=== PATIENT | male | born 1955 | race Caucasian/White ===

== ENCOUNTER 2021-08-02 23:35 | Inpatient (IN) | payer MEDICARE, BC, SELFPAY ==
[2021-08-02 23:34] VITALS: BP 155/76; PULSE 106; RESP 20; TEMP 36.9; O2SAT 92; BMI 30.4
--- NOTE | 2021-08-02 23:34 | PCM.HP.STD ---
HPI - General General Date of Admission: 08/02/21 HPI Narrative RABIA ALCANTARA, is a 66 M who is being admitted directly in ICU from [place] [facility] for worsening shortness of breath related to COVID-19 pneumonia. Patient symptoms started 8 days prior to admission on 07/25 mainly shortness of breath, fever and chills. He tested covid positive on 07/28. Triage vitals in [place] ER temperature 38.3 ?C, heart rate 100 -110/min, respiratory rate 18 to 20/min, BP 180/76. ABG was done on 50% Ventimask 7.5 . Bicarb in BMP 20, anion gap 16. WBC count 9.6 thousand with no lymphopenia. ANC high, with lymphopenia. Hemoglobin 14. Lactic acid 1.7. Subsequently patient was put on BiPAP, 08/05, 100% FiO2 pulse ox 96%. I urged after talking to gas meter repairer to intubate in case if he desaturates or hypoxic while transportation. I talked to ED physician again after an hour and she said he does not want to get intubated on ventilator and was weaned off to 70% FiO2 and is stable for last 1 hour as per the [place] [facility] physician, Dr. Scott. D-dimer high. Chest x-ray shows bilateral patchy infiltrates. CT angiogram chest multifocal bilateral pneumonia but no PE. He has history of asthma, hypertension and a stroke in the past, with residual dysequilibrium [facility] Medical History Asthma Hypertension Narcolepsy Stroke/cerebrovascular accident Home Medications doxycycline monohydrate 08/03/21 [History Last Taken Unknown] meloxicam PRN 08/03/21 [History Last Taken Unknown] metoprolol tartrate 08/03/21 [History Last Taken Unknown] olmesartan-hydrochlorothiazide tab 08/03/21 [History Last Taken Unknown] Allergy/AdvReac Type Severity Reaction Status Date / Time cephalexin [From Keflex] Allergy Rash Verified 08/03/21 00:22 theophylline Allergy Rash Verified 08/03/21 00:22 Social History Smoking Status: Unknown if ever smoked ROS Constitutional Constitutional: Reports chills, fatigue and malaise ENT HEENT: Reports hearing loss and nasal congestion Cardiovascular Cardiovascular: Reports dyspnea on exertion Respiratory/Chest Respiratory/Chest: Reports cough, dyspnea, shortness of breath at rest and shortness of breath with exertion Gastrointestinal Gastrointestinal: Denies abdominal pain, coffee ground emesis, constipation, diarrhea, dyspepsia, hematemesis, hematochezia, loose stools, melena, nausea, vomiting or other Genitourinary Genitourinary: Denies burning urination or urinary frequency Musculoskeletal Musculoskeletal: Reports arthralgias, joint pain and myalgias Neurologic Neurologic: Reports abnormal gait Allergic/Immunologic Allergic/Immunologic: Reports asthma Physical Exam Const alert and oriented x3 General Appearance: cooperative HEENT normocephalic and head/scalp atraumatic HEENT Narrative: on bipap Eyes PERRL and EOMs intact bilaterally Neck supple and no JVD Resp Resp Narrative: Air entry diminished B/L. b/l coarse crepts. Dyspnea. On Bipap Cardio S1 normal heart sound, S2 normal heart sound and no murmurs Cardio Narrative: sinus tachycardia GI normal to inspection, nondistended, normoactive bowel sounds Extremity normal to inspection and no clubbing, cyanosis or edema Peripheral Pulses: Yes pulses 2+ throughout Neuro oriented x3 Sensorium / Orientation: awake and alert Psych affect normal Assessment & Plan Assessment/Plan (1) Acute respiratory failure with hypoxia: (2) Pneumonia due to COVID-19 virus: PLAN: 1. Acute hypoxic respiratory failure secondary to bilateral COVID-19 pneumonia: The patient is being admitted in ICU on BiPAP. ABG done here shows 7.49/27/64 on 08/06 50 fio2 suggestive of resp alkalosis. Advised to change to Airvo Started on dexamethasone and remdesivir as patient is still on 10 days window for remdesivir. ID consult to consider baricitinib. Flame Channeler consult. Blood culture x2 is ordered in [place] ED. Urinary antigens and sputum culture for pneumonia work-up ORDERED. Continue bronchodilator, Pep, Mucinex and incentive spirometry. Inflammtory markers ordered. Labs from [place] ED reviewed. 2. Asthma exacerbation due to B/L COVID 19 : On Bronchodilator. Mild hyyokalmia, K 3.4, kcl replacement is ordered. 3. Hypertension: bp 150/74. continue home meds 4. History of a stroke in past: VTE prophylaxis moderate to high risk: on lovenox 30 mg sq bid. Advance directive: Patient doesn't have advance directive or designated HPOA. After discussion different procedures involved with full code, DNRCC-Arrest and DNRCC, he said he doesn;t want to be intubated or ventilator until absolutely needed. He is OK with CPR, CVC, DC Shock, tube feeding and vasopressor if absolutely needed. Time spent in discussion 16 mins Charges/Coding Visit Charges Inpatient E&M: 75464 Init Hosp L3 Procedures Hospitalists Procedures: 32217 Advncd Care Plan 30 Min
--- NOTE | 2021-08-02 23:35 | NURSING ---
PANDEMIC DOCUMENTATION DATE: 08/02/21 TIME: 2478
[2021-08-02 23:39] VITALS: PULSE 107
[2021-08-02 23:43] VITALS: PULSE 104; RESP 12; RESP 25; O2SAT 94
[2021-08-02 23:49] VITALS: BP 133/83; PULSE 103; RESP 22; O2SAT 97
[2021-08-03] VITALS (34 sets, daily range): BP systolic 114–160; BP diastolic 59–93; PULSE 79–130; RESP 12–37; TEMP 36.4–38.2; O2SAT 86–98
[2021-08-03 00:11] LABS: Allen Test Positive; Base Excess -2 mmol/L (-2 to +2); Bicarbonate 21.1 mmol/L (22-26); Blood Gas Specimen Type ART; FI02 50; O2 Delivery Device BiPAP; PO2 64 mmHG (75-100); RR 12; SITE R Radial; SO2 94 % (95-99); Total Carbon Dioxide 22 mmol/L; pCO2 27.5 mmHg (35-45); pH 7.49 (7.35-7.45)
[2021-08-03 01:42] LABS: Fibrinogen 827 mg/dl (203-444); International Normalized Ratio 1.1; Prothrombin Time (Protime)PT. 13.4 SECONDS (11.7-14.9)
[2021-08-03 01:49] LABS: CPK Total, Creatine Kinase 453 U/L (39-308); LDH 425 U/L (87-241); Troponin-I HS 15 pg/mL (3.0-78.0)
[2021-08-03 01:57] LABS: Lactic Acid 1.9 mmol/L (0.4-1.9)
[2021-08-03 02:01] LABS: BNP,B-Type NATRIURETIC PEPTIDE 33.2 pg/mL (0-100)
[2021-08-03 02:10] LABS: Procalcitonin 0.37 ng/mL (0.00-0.09)
[2021-08-03 03:01] LABS: M R Staph aureus DNA By PCR Negative (Negative); Probe Check PASS; Specimen Processing Control PASS
[2021-08-03] MEDS: Potassium Chloride Oral Tablet 20 MEQ 40 MEQ PO (03:16)
[2021-08-03] MEDS: Enoxaparin 30 MG/0.3 ML Syringe SC ×3 (03:16→21:06)
[2021-08-03 03:36] LABS: Absolute Lymphocyte Count 0.35 X10^3/uL (0.83-4.51); Absolute Neutrophil Count 6.5 X10^3/uL (2.0-7.7); Basophil# 0.01 X10^3/uL; Basophil% 0.1 % (0-1); Hematocrit 39.3 % (40-54); Lymphocyte # 0.35 X10^3/ul (0.83-4.51); Lymphocyte % 4.8 % (19-41); Mean Corp Hgb Conc 33.1 g/dL (32-36); Mean Corpuscular Hgb 27.8 pg (27.0-32.0); Mean Platelet Vol. 9.4 fl (6.2-12.0); Monocyte# 0.26 X10^3/uL; Monocyte% 3.6 % (0-10); NRBC Flagged by Analyzer 0 % (0-5); Neutrophil # 6.53 X10^3/uL (2.7-7.7); POSITIVE DIFFERENTIAL YES; Platelet Count 223 K/mm3 (150-450); RBC Distribution Width CV 13.7 % (11.6-14.6); RBC Distribution Width SD 42.1 fl (35.1-43.9); Red Blood Count 4.68 M/mm3 (4.6-6.2); White Blood Count 7.3 K/mm3 (4.4-11.0)
[2021-08-03 03:45] LABS: Differential Indicated SCAN CRITERIA MET
[2021-08-03 03:54] LABS: ALB/GLOB Ratio 0.6 RATIO (0.9-2.4); AST(SGOT) 47 U/L (15-37); Alanine Aminotransfer ALT/SGPT 38 U/L (16-61); Albumin, Serum 2.3 g/dL (3.2-5.0); Alkaline Phosphatase 49 U/L (45-117); Anion Gap 7 (5-15); BUN 10 mg/dL (7-18); BUN/Creat Ratio 15.3 RATIO (10-20); Calcium,Total 8.4 mg/dL (8.5-10.1); Chloride 108 mmol/L (98-107); Creatinine, Serum 0.65 mg/dL (0.70-1.30); EST Glomerular Filtration Rate 129 mL/min (>60); Est Glom Filt Rate - Afr Amer 156 mL/min (>60); Globulin 4.1 g/dL (2.2-4.2); Glucose 161 mg/dL (74-106); Phosphorus 2.8 mg/dL (2.5-4.9); Potassium 3.3 mmol/L (3.5-5.1); Protein, Total 6.4 g/dL (6.4-8.2); Sodium Level 140 mmol/L (136-145)
--- NOTE | 2021-08-03 05:44 | EX.PCM.CONCC ---
Assessment & Plan Assessment/Plan (1) Acute respiratory failure with hypoxia: (2) Pneumonia due to COVID-19 virus: PLAN: RECOMMENDATIONS: 1. Continue to wean FiO2 to maintain oxygen saturations at or above 90%. 2. Continue remdesivir as ordered. Continue to monitor liver and renal function. 3. Continue Decadron to complete 10 days of therapy. 4. Continue prophylactic Lovenox. 5. Infectious diseases consultation for possible baricitinib. 6. Awake prone positioning was encouraged. 7. Diuretics, as needed, to maintain euvolemic state. IMPRESSIONS: 1. Acute hypoxemic respiratory failure secondary to COVID-19 pneumonia The patient initially presented to the hospital with worsening shortness of breath and hypoxemia. Given that he was within 10 days of symptom onset, the patient was initiated on remdesivir. He will also be continued on Decadron to complete 10-day treatment course. The patient's respiratory status is still quite tenuous and he has been requiring a combination of BiPAP and heated high flow oxygen to maintain saturations. Continue to wean FiO2 to maintain saturations at or above 90%. Awake prone positioning was encouraged. CTA showed no evidence for PE. Therefore, continue prophylactic Lovenox as ordered. Recommend consultation to infectious diseases for consideration of baricitinib. Diuretics can be utilized as needed to maintain euvolemic state. 2. Obesity/hypertension/self-reported asthma/prior CVA Complicates care, management, recovery and prognosis. Continue home medications as indicated. The patient is okay with intubation if needed. TIME: 34 minutes of critical care time, independent of procedures, was spent addressing the patient's acute hypoxemic respiratory failure secondary to COVID-19 pneumonia, review of all data and collaboration with the care team. HPI Consult Data Date of Consult: 08/03/21 HPI Narrative Reason for Consultation: Acute hypoxemic respiratory failure secondary to COVID-19 pneumonia HPI Narrative: The patient is a 66-year-old male, with a history as outlined below, who presented to the hospital as a transfer of care from [place] with worsening shortness of breath and hypoxemia. According to documentation, the patient was found by EMS with an oxygen saturation of 72% on room air. While in the outside hospital emergency department, he ultimately required BiPAP support due to increased work of breathing and persistent hypoxemia. CTA chest showed no evidence for pulmonary embolism but did demonstrate bilateral airspace opacities. The patient symptom onset was approximately July 25. He subsequently tested positive on July 28. On presentation to the intensive care unit, the patient was noted to be afebrile and hemodynamically stable. The patient was initially maintained on BiPAP overnight with an FiO2 requirement of 60%. At some point early this morning, he was transitioned to Airvo heated high flow with an FiO2 of 80% and flow rate of 60 L/min. ABG obtained on BiPAP revealed a pH of 7.49 with a PCO2 of 27 and PO2 of 64. Chemistry profile was notable for a potassium of 3.3. CRP was elevated to 161. The patient was initiated on remdesivir, Decadron and Lovenox. [facility] Medical History Asthma Hypertension Narcolepsy Stroke/cerebrovascular accident Home Medications doxycycline monohydrate 08/03/21 [History Last Taken Unknown] metoprolol tartrate 08/03/21 [History Last Taken Unknown] metoprolol tartrate 08/03/21 [History Last Taken Unknown] olmesartan-hydrochlorothiazide tab 08/03/21 [History Last Taken Unknown] Allergy/AdvReac Type Severity Reaction Status Date / Time cephalexin [From Keflex] Allergy Rash Verified 08/03/21 00:22 theophylline Allergy Rash Verified 08/03/21 00:22 Social History Smoking Status: Unknown if ever smoked ROS Constitutional Constitutional: Reports body ache(s) and fatigue Eyes Eyes: Denies blurry vision or change in vision ENT HEENT: Reports headache(s); Denies dizziness, epistaxis, nasal congestion or nasal discharge Cardiovascular Cardiovascular: Reports dyspnea; Denies chest pain or dizziness Respiratory/Chest Respiratory/Chest: Reports cough and dyspnea Gastrointestinal Gastrointestinal: Denies abdominal pain, nausea or vomiting Genitourinary Genitourinary: Denies difficulty urinating Musculoskeletal Musculoskeletal: Denies arthralgias, back pain or joint pain Integumentary Integumentary: Denies lesions, rash or skin ulcer Neurologic Neurologic: Denies abnormal gait Psychiatric Psychiatric: Denies anxiety or depression Endocrine Endocrinology: Denies fatigue Hematologic/Lymphatic Hematologic/Lymphatic: Denies easy bleeding or easy bruising Physical Exam Const alert Constitutional Narrative: Sitting upright in bed. General Appearance: cooperative Nutritional Appearance: obese HEENT normocephalic and head/scalp atraumatic Eyes PERRL, EOMs intact bilaterally and conjunctivae normal Neck supple General: trachea midline Chest inspection of chest normal Resp Effort and Inspection: tachypneic Auscultation: diminished lung sounds Cardio regular rate and regular rhythm GI normal to inspection, nondistended, normoactive bowel sounds Extremity no clubbing, cyanosis or edema Skin no rashes or lesions noted Neuro CN's II-XII intact bilaterally, moves all extremities and no focal motor deficits Psych cooperative and affect normal Lab / Micro Data Result Diagrams: 08/03/21 03:20 08/03/21 03:20 Labs: Laboratory Results - last 24 hr 08/03/21 01:00: PT 13.4, INR 1.1, Fibrinogen 827 H 08/03/21 01:00: Lactate Dehydrogenase 425 H, Total Creatine Kinase 453 H, Troponin I High Sens 15, C-React Prot Ext Range 161.00 H 08/03/21 01:00: Lactic Acid 1.9 08/03/21 01:00: B-Natriuretic Peptide 33.2 08/03/21 01:00: Procalcitonin 0.37 H 08/03/21 01:25: MRSA (PCR) Negative 08/03/21 03:20: WBC 7.3, RBC 4.68, Hgb 13.0, Hct 39.3 L, MCV 84.0, MCH 27.8, MCHC 33.1, RDW Std Deviation 42.1, RDW Coeff of Williams 13.7, Plt Count 223, MPV 9.4, Immature Gran % (Auto) 1.500 H, Neut % (Auto) 90.0 H, Lymph % (Auto) 4.8 L, [place] % (Auto) 3.6, Eos % (Auto) 0.0, Baso % (Auto) 0.1, Absolute Neuts (auto) 6.5, Absolute Lymphs (auto) 0.35 L, Nucleated RBC % 0 08/03/21 03:20: Sodium 140, Potassium 3.3 L, Chloride 108 H, Carbon Dioxide 25.0, Anion Gap 7, BUN 10, Creatinine 0.65 L, Estim Creat Clear Calc 68.40, Est GFR (MDRD) Af Amer 156, Est GFR (MDRD) Non-Af 129, BUN/Creatinine Ratio 15.3, Glucose 161 H, Calcium 8.4 L, Phosphorus 2.8, Magnesium 2.0, Total Bilirubin 0.40, AST 47 H, ALT 38, Alkaline Phosphatase 49, Total Protein 6.4, Albumin 2.3 L, Globulin 4.1, Albumin/Globulin Ratio 0.6 L ABG Data ABG results: ABG 08/03/21 00:03 Specimen Type ART Sample Site R Radial pH 7.49 H Bicarbonate Actual 21.1 L Total CO2 22 Base Excess -2 O2 Saturation 94 L O2 % 50 ABG pCO2 27.5 L ABG pO2 64 L Raul Test Positive Respiration Rate 12 O2 Delivery Device BiPAP Clinical Comments 08/06 Charges/Coding Procedures Hospitalists Procedures: 78130 Critial Care 1st Hr
[2021-08-03] MEDS: Ipratropium/Albuterol Sulfate 3 ML AMPUL.NEB INHALATION ×3 (06:49→19:19)
--- NOTE | 2021-08-03 07:13 | PN.HOSP_ITS ---
Subjective Subjective Patient is a 66-year-old gentleman unvaccinated against COVID-19 who presented with progressive shortness of breath. He was seen and evaluated at the [place] ER found to be significantly hypoxic placed on BiPAP and subsequently transferred to the [facility] Objective Data Objective Data Vital Signs: Vital Signs Temp Pulse Resp BP Pulse Ox 99.2 F H 94 21 H 157/89 H 92 08/03/21 04:00 08/03/21 07:00 08/03/21 07:00 08/03/21 07:00 08/03/21 06:52 Oxygen Flow Rate (L/min) 60 Oxygen Delivery Method Airvo Weight: 90.7 kg Body Mass Index (BMI) 30.4 Intake & Output: Intake and Output for Last 24 Hours 08/01/21 08/02/21 08/03/21 23:59 23:59 23:59 Intake Total 490 / 490 Output Total 400 / 400 Balance 90 / 90 Lab / Micro Data Result Diagrams: 08/03/21 03:20 08/03/21 03:20 Labs: Laboratory Results - last 24 hr 08/03/21 01:00: PT 13.4, INR 1.1, Fibrinogen 827 H 08/03/21 01:00: Lactate Dehydrogenase 425 H, Total Creatine Kinase 453 H, Troponin I High Sens 15, C-React Prot Ext Range 161.00 H 08/03/21 01:00: Lactic Acid 1.9 08/03/21 01:00: B-Natriuretic Peptide 33.2 08/03/21 01:00: Procalcitonin 0.37 H 08/03/21 01:25: MRSA (PCR) Negative 08/03/21 03:20: WBC 7.3, RBC 4.68, Hgb 13.0, Hct 39.3 L, MCV 84.0, MCH 27.8, MCHC 33.1, RDW Std Deviation 42.1, RDW Coeff of Williams 13.7, Plt Count 223, MPV 9.4, Immature Gran % (Auto) 1.500 H, Neut % (Auto) 90.0 H, Lymph % (Auto) 4.8 L, Jay % (Auto) 3.6, Eos % (Auto) 0.0, Baso % (Auto) 0.1, Absolute Neuts (auto) 6.5, Absolute Lymphs (auto) 0.35 L, Nucleated RBC % 0 08/03/21 03:20: Sodium 140, Potassium 3.3 L, Chloride 108 H, Carbon Dioxide 25.0, Anion Gap 7, BUN 10, Creatinine 0.65 L, Estim Creat Clear Calc 68.40, Est GFR (MDRD) Af Amer 156, Est GFR (MDRD) Non-Af 129, BUN/Creatinine Ratio 15.3, Glucose 161 H, Calcium 8.4 L, Phosphorus 2.8, Magnesium 2.0, Total Bilirubin 0.40, AST 47 H, ALT 38, Alkaline Phosphatase 49, Total Protein 6.4, Albumin 2.3 L, Globulin 4.1, Albumin/Globulin Ratio 0.6 L ABG Data ABG results: ABG 08/03/21 00:03 Specimen Type ART Sample Site R Radial pH 7.49 H Bicarbonate Actual 21.1 L Total CO2 22 Base Excess -2 O2 Saturation 94 L O2 % 50 ABG pCO2 27.5 L ABG pO2 64 L Raul Test Positive Respiration Rate 12 O2 Delivery Device BiPAP Clinical Comments 08/06 Physical Exam Narrative GENERAL: Dyspneic at rest HEENT: Atraumatic; EYES; Anicteric, Normal Conjunctiva NECK; supple, normal thyroid, RESPIRATORY: Diminished to auscultation CARDIOVASCULAR: Regular S1 S2, GI: soft, normoactive bowel sounds, : No Renal angle tenderness; EXTREMITIES: No edema, no clubbing, MUSCULOSKELETAL: no muscle waisting NEURO: Awake; no lateralizing signs. SKIN: No Rash PSYCH; Flat affect Assessment & Plan Assessment/Plan (1) Acute respiratory failure with hypoxia: (2) Pneumonia due to COVID-19 virus: PLAN: Patient is a 66-year-old gentleman unvaccinated against COVID-19 who presented with progressive shortness of breath. He was seen and evaluated at the [place] ER found to be significantly hypoxic placed on BiPAP and subsequently transferred to the [facility] 1. Acute hypoxic respiratory failure secondary to bilateral COVID-19 pneumonia -Admitted to regular nursing floor patient was started on dexamethasone and remdesivir. Patient symptoms started on 07/26/2021. Was also placed on supplemental oxygen via Airvo titrated to keep oxygen saturation greater than 90. Patient remains in ICU consultation was placed to pulmonary medicine. 2. Acute asthma exacerbation ?Possibly per stated by above patient is on steroid and bronchodilator treatment 3. Hypokalemia ?Corrected per protocol, repeat labs ordered for monitoring 4. Hypertension - Blood pressure not optimal, home medications continued with dose adjustment as needed 5. History of previous CVA ?With no residual effect 6. DVT prophylaxis ?Tate Charges/Coding Visit Charges Inpatient E&M: 95351 Subs Hosp L3
[2021-08-03] MEDS: dexAMETHasone 10 MG/ML Vial 6 MG IV (09:57)
[2021-08-03] MEDS: Losartan Potassium 25 MG Tablet PO (09:58)
[2021-08-03] MEDS: guaiFENesin 1,200 MG Tablet 1200 MG PO ×2 (09:58→21:05)
[2021-08-03] MEDS: Furosemide 40 MG/4 ML Vial IV (10:07)
[2021-08-03] MEDS: 0.9% Saline Lock 10 ML Syringe IV ×2 (10:07→21:05)
--- NOTE | 2021-08-03 13:14 | CASEMGMT ---
Addendum entered by Wen Tang 08/03/21 14:05: Pt had COVID testing done @ [facility]. Original Note: RN CM COSMETIC SALES CM spoke with patient for initial transition planning/care coordination assessment. RN CM introduced self and role at [facility]. Pt voices understanding and consents to assessment at this time. Pt is A/O at this time and answers all questions appropriately. Care providers, pharmacy, and demographics verified/updated at this time. PCP: Leanne Perry Specialists: none Preferred Pharmacy: [facility] Retail Insurance: [employer], [place] Prescription Benefit: Yes--[employer] LNOK:, Erin. Daughter, Betina Living Arrangements: Lives w/ in one-story home. Handicap accessible. Uses walker @ baseline. Able to bath/dress self. does home tasks. Was +COVID and was just d/c'd from [facility] on Fri-she went home w/O2 from [facility]. Neighbors able to get groceries and their mail while they are ill. Transportation: Pt states drives self and states no transportation concerns at this time. also drives DME: States has the following DME: nebulizer, cane, walker. Also has/but does not use: shower chair, transport chair, W/C. Does not have home O2. If needs O2 @ d/c, 1st preference is [employer]. HHC/SNF: No hx of either. Pt wishes to return home and states has no concerns with going home at time of discharge. CM to follow for home oxygen needs and any further discharge planning/needs. Pt voices no further concerns/needs at this time. Advised pt to ask for CM if any further questions/concerns/needs arise. Voices understanding. PLAN: Home. PT/OT evals pending. Follow for any HHC needs. Follow for any O2 needs. Tammy JOLLY RN, CM
--- NOTE | 2021-08-03 14:39 | CPS ---
Water bag changed on V60+
[2021-08-03] MEDS: Acetaminophen 325 MG Tablet 650 MG PO (16:02)
[2021-08-03] MEDS: MELATONIN 10 MG TABLET PO (21:05)
[2021-08-04] VITALS (38 sets, daily range): BP systolic 104–146; BP diastolic 55–80; PULSE 74–108; RESP 12–46; TEMP 36.7–37.1; O2SAT 86–98
[2021-08-04] MEDS: Acetaminophen 325 MG Tablet 650 MG PO ×2 (00:33→22:28)
[2021-08-04 05:09] LABS: Absolute Lymphocyte Count 0.44 X10^3/uL (0.83-4.51); Absolute Neutrophil Count 6.7 X10^3/uL (2.0-7.7); Basophil# 0.02 X10^3/uL; Basophil% 0.3 % (0-1); Hematocrit 38.8 % (40-54); Lymphocyte # 0.44 X10^3/ul (0.83-4.51); Lymphocyte % 5.8 % (19-41); Mean Corp Hgb Conc 33.5 g/dL (32-36); Mean Corpuscular Hgb 28.1 pg (27.0-32.0); Mean Corpuscular Volume 83.8 fL (80-94); Mean Platelet Vol. 9.5 fl (6.2-12.0); Monocyte# 0.26 X10^3/uL; Monocyte% 3.4 % (0-10); NRBC Flagged by Analyzer 0 % (0-5); Neutrophil # 6.69 X10^3/uL (2.7-7.7); POSITIVE DIFFERENTIAL YES; Platelet Count 258 K/mm3 (150-450); RBC Distribution Width CV 13.7 % (11.6-14.6); RBC Distribution Width SD 42.2 fl (35.1-43.9); Red Blood Count 4.63 M/mm3 (4.6-6.2); White Blood Count 7.6 K/mm3 (4.4-11.0)
[2021-08-04 05:11] LABS: Differential Indicated SCAN CRITERIA MET
[2021-08-04 05:26] LABS: ALB/GLOB Ratio 0.5 RATIO (0.9-2.4); AST(SGOT) 42 U/L (15-37); Alanine Aminotransfer ALT/SGPT 38 U/L (16-61); Alkaline Phosphatase 46 U/L (45-117); Anion Gap 6 (5-15); BUN 22 mg/dL (7-18); BUN/Creat Ratio 34.6 RATIO (10-20); Calcium,Total 8.2 mg/dL (8.5-10.1); Chloride 107 mmol/L (98-107); Creatinine, Serum 0.64 mg/dL (0.70-1.30); EST Glomerular Filtration Rate 133 mL/min (>60); Est Glom Filt Rate - Afr Amer 161 mL/min (>60); Globulin 4.1 g/dL (2.2-4.2); Glucose 111 mg/dL (74-106); Magnesium 2.1 mg/dL (1.6-2.6); Potassium 3.7 mmol/L (3.5-5.1); Protein, Total 6.1 g/dL (6.4-8.2); Sodium Level 140 mmol/L (136-145)
[2021-08-04 05:45] LABS: Differential Comment SCANNED
--- NOTE | 2021-08-04 05:46 | PCM.PN.INT ---
Assessment & Plan Assessment/Plan (1) Acute respiratory failure with hypoxia: (2) Pneumonia due to COVID-19 virus: PLAN: RECOMMENDATIONS: 1. Continue to wean FiO2 to maintain oxygen saturations at or above 90%. 2. Continue remdesivir as ordered. Continue to monitor liver and renal function. 3. Continue Decadron to complete 10 days of therapy. 4. Continue prophylactic Lovenox. 5. Start baricitinib today. 6. Awake prone positioning was encouraged. 7. Diuretics, as needed, to maintain euvolemic state. IMPRESSIONS: 1. Acute hypoxemic respiratory failure secondary to COVID-19 pneumonia The patient initially presented to the hospital with worsening shortness of breath and hypoxemia. Given that he was within 10 days of symptom onset, the patient was initiated on remdesivir. He will also be continued on Decadron to complete 10-day treatment course. The patient's respiratory status is still quite tenuous and he has been requiring a combination of AVAPS and heated high flow oxygen to maintain saturations. Continue to wean FiO2 to maintain saturations at or above 90%. Awake prone positioning was encouraged. CTA showed no evidence for PE. Therefore, continue prophylactic Lovenox as ordered. Given the aforementioned, baricitinib will be initiated today. Diuretics can be utilized as needed to maintain euvolemic state. 2. Obesity/hypertension/self-reported asthma/prior CVA Complicates care, management, recovery and prognosis. Continue home medications as indicated. The patient is okay with intubation if needed. This note was generated with [employer] dictation software. It may contain incorrect words, spelling, and punctuation that were not noted in checking the note before signing. Subjective Subjective The patient was seen and examined at the bedside this morning. Events from the last 24 hours have been reviewed. The patient was maintained on AVAPS overnight with an FiO2 of 80%. He was then transition back to heated high flow this morning, which he is currently tolerating. The patient did sleep part of the night in a prone position. Liver and renal function are stable. The patient remains on remdesivir, Decadron, Lovenox and scheduled bronchodilators. I did personally call this morning to pharmacy and placed an order for baricitinib. Objective Data Objective Data The patient's most recent lab work, culture data and imaging studies have all been personally reviewed. Strep and urine Legionella antigens were negative. Blood and sputum cultures are pending. Vital Signs: Vital Signs Temp Pulse Resp BP Pulse Ox 98.2 F 99 22 H 128/77 H 93 08/04/21 04:00 08/04/21 04:31 08/04/21 04:31 08/04/21 04:00 08/04/21 04:31 Oxygen Flow Rate (L/min) 60 Oxygen Delivery Method Bi-pap Weight: 86.8 kg Body Mass Index (BMI) 30.4 Intake & Output: Intake and Output for Last 24 Hours 08/02/21 08/03/21 08/04/21 23:59 23:59 23:59 Intake Total 1675.50 / 1795.50 120 / 120 Output Total 1850 / 2175 325 / 325 Balance -174.50 / -379.50 -205 / -205 Medical Nutrition Assessment Dietitian: Malnutrition Criteria Met Start: 08/03/21 13:46 Freq: Status: Active Protocol: Document 08/03/21 13:46 AG (Rec: 08/03/21 13:46 AG [id number]) Nutrition Malnutrition Evidence of Malnutrition Exists Yes Malnutrition (severe): Acute Illness/Injury Evidenced By Suboptimal Energy Intake ( Severe),Weight Loss (Severe) Clinical Problem Acute Disease or Injury Related Malnutrition Etiology severe, acute malnutrition r/t inadequate energy intake d/t COVID-19 illness Signs/Symptoms as evidenced by unintentional wt loss of 5#/2.4% x 8 days, estimated PO intake meeting < 50% of estimated nutritional needs >1 week Status Active Problem Recommendation Dietitian Recommendations/Changes continue regular diet, will add 8 oz ensure enlive w/ meals for additional calories/ protein if consumed. Lab / Micro Data Attestation: I reviewed the patient's lab results. Result Diagrams: 08/04/21 04:25 08/04/21 04:25 Labs: Laboratory Results - last 24 hr 08/04/21 04:25: WBC 7.6, RBC 4.63, Hgb 13.0, Hct 38.8 L, MCV 83.8, MCH 28.1, MCHC 33.5, RDW Std Deviation 42.2, RDW Coeff of Williams 13.7, Plt Count 258, MPV 9.5, Immature Gran % (Auto) 2.500 H, Neut % (Auto) 88.0 H, Lymph % (Auto) 5.8 L, [place] % (Auto) 3.4, Eos % (Auto) 0.0, Baso % (Auto) 0.3, Absolute Neuts (auto) 6.7, Absolute Lymphs (auto) 0.44 L, Nucleated RBC % 0, Differential Comment SCANNED 08/04/21 04:25: Sodium 140, Potassium 3.7, Chloride 107, Carbon Dioxide 27.0, Anion Gap 6, BUN 22 H, Creatinine 0.64 L, Estim Creat Clear Calc 68.40, Est GFR (MDRD) Af Amer 161, Est GFR (MDRD) Non-Af 133, BUN/Creatinine Ratio 34.6 H, Glucose 111 H, Calcium 8.2 L, Magnesium 2.1, Total Bilirubin 0.40, AST 42 H, ALT 38, Alkaline Phosphatase 46, Total Protein 6.1 L, Albumin 2.0 L, Globulin 4.1, Albumin/Globulin Ratio 0.5 L Micro: Microbiology 08/03/21 13:33 Urine, Clean Catch Legionella Antigen - Final 08/03/21 13:33 Urine, Clean Catch Streptococcus pneumoniae Antigen (M - Final 08/03/21 01:00 Sputum, Expectorated/Coughed Gram Stain - Final Physical Exam Const alert Constitutional Narrative: Sitting in bedside recliner. General Appearance: cooperative Nutritional Appearance: obese HEENT normocephalic and head/scalp atraumatic Eyes PERRL, EOMs intact bilaterally and conjunctivae normal Neck supple General: trachea midline Chest inspection of chest normal Resp Effort and Inspection: Negative for labored Auscultation: diminished lung sounds; Negative for rales, rhonchi or wheezes Cardio regular rate and regular rhythm GI normal to inspection, nondistended, normoactive bowel sounds Extremity no clubbing, cyanosis or edema Skin no rashes or lesions noted Neuro CN's II-XII intact bilaterally, moves all extremities and no focal motor deficits Psych Mood & Affect: flat affect Charges/Coding Visit Charges Inpatient E&M: 14397 Subs Hosp L3
[2021-08-04] MEDS: Ipratropium/Albuterol Sulfate 3 ML AMPUL.NEB INHALATION ×3 (06:40→19:19)
--- NOTE | 2021-08-04 06:42 | PCM.PN.HOSP ---
Subjective Subjective Patient seen remains in ICU. Remains on high flow oxygen via Airvo with FiO2 of 100% and flow of 70 L/min. Patient desaturated easily with activity including talking dropping to the mid 80s. Objective Data Objective Data Vital Signs: Vital Signs Temp Pulse Resp BP Pulse Ox 98.2 F 82 35 H 124/65 H 90 08/04/21 04:00 08/04/21 06:00 08/04/21 06:00 08/04/21 06:00 08/04/21 06:00 Oxygen Flow Rate (L/min) 60 Oxygen Delivery Method Bi-pap Weight: 86.8 kg Body Mass Index (BMI) 30.4 Intake & Output: Intake and Output for Last 24 Hours 08/02/21 08/03/21 08/04/21 23:59 23:59 23:59 Intake Total 1675.50 / 1795.50 120 / 120 Output Total 1850 / 2175 700 / 700 Balance -174.50 / -379.50 -580 / -580 Medical Nutrition Assessment Dietitian: Malnutrition Criteria Met Start: 08/03/21 13:46 Freq: Status: Active Protocol: Document 08/03/21 13:46 AG (Rec: 08/03/21 13:46 AG [id number]) Nutrition Malnutrition Evidence of Malnutrition Exists Yes Malnutrition (severe): Acute Illness/Injury Evidenced By Suboptimal Energy Intake ( Severe),Weight Loss (Severe) Clinical Problem Acute Disease or Injury Related Malnutrition Etiology severe, acute malnutrition r/t inadequate energy intake d/t COVID-19 illness Signs/Symptoms as evidenced by unintentional wt loss of 5#/2.4% x 8 days, estimated PO intake meeting < 50% of estimated nutritional needs >1 week Status Active Problem Recommendation Dietitian Recommendations/Changes continue regular diet, will add 8 oz ensure enlive w/ meals for additional calories/ protein if consumed. Lab / Micro Data Result Diagrams: 08/04/21 04:25 08/04/21 04:25 Labs: Laboratory Results - last 24 hr 08/04/21 04:25: WBC 7.6, RBC 4.63, Hgb 13.0, Hct 38.8 L, MCV 83.8, MCH 28.1, MCHC 33.5, RDW Std Deviation 42.2, RDW Coeff of Williams 13.7, Plt Count 258, MPV 9.5, Immature Gran % (Auto) 2.500 H, Neut % (Auto) 88.0 H, Lymph % (Auto) 5.8 L, [place] % (Auto) 3.4, Eos % (Auto) 0.0, Baso % (Auto) 0.3, Absolute Neuts (auto) 6.7, Absolute Lymphs (auto) 0.44 L, Nucleated RBC % 0, Differential Comment SCANNED 08/04/21 04:25: Sodium 140, Potassium 3.7, Chloride 107, Carbon Dioxide 27.0, Anion Gap 6, BUN 22 H, Creatinine 0.64 L, Estim Creat Clear Calc 68.40, Est GFR (MDRD) Af Amer 161, Est GFR (MDRD) Non-Af 133, BUN/Creatinine Ratio 34.6 H, Glucose 111 H, Calcium 8.2 L, Magnesium 2.1, Total Bilirubin 0.40, AST 42 H, ALT 38, Alkaline Phosphatase 46, Total Protein 6.1 L, Albumin 2.0 L, Globulin 4.1, Albumin/Globulin Ratio 0.5 L Micro: Microbiology 08/03/21 13:33 Urine, Clean Catch Legionella Antigen - Final 08/03/21 13:33 Urine, Clean Catch Streptococcus pneumoniae Antigen (M - Final 08/03/21 01:00 Sputum, Expectorated/Coughed Gram Stain - Final Physical Exam Narrative GENERAL: Dyspneic at rest HEENT: Atraumatic; EYES; Anicteric, Normal Conjunctiva NECK; supple, normal thyroid, RESPIRATORY: Diminished to auscultation CARDIOVASCULAR: Regular S1 S2, GI: soft, normoactive bowel sounds, : No Renal angle tenderness; EXTREMITIES: No edema, no clubbing, MUSCULOSKELETAL: no muscle waisting NEURO: Awake; no lateralizing signs. SKIN: No Rash PSYCH; Flat affect Assessment & Plan Assessment/Plan (1) Acute respiratory failure with hypoxia: (2) Pneumonia due to COVID-19 virus: PLAN: Patient is a 66-year-old gentleman unvaccinated against COVID-19 who presented with progressive shortness of breath. He was seen and evaluated at the [place] [facility] found to be significantly hypoxic placed on BiPAP and subsequently transferred to the [facility] 1. Acute hypoxic respiratory failure secondary to bilateral COVID-19 pneumonia -Admitted to regular nursing floor patient was started on dexamethasone and remdesivir. Patient symptoms started on 07/26/2021. Was also placed on supplemental oxygen via Airvo titrated to keep oxygen saturation greater than 90. Patient remains in ICU consultation was placed to pulmonary medicine. ?08/04/2021.Patient seen remains in ICU. Remains on high flow oxygen via Airvo with FiO2 of 100% and flow of 70 L/min. Patient desaturated easily with activity including talking dropping to the mid 80s 2. Acute asthma exacerbation ?Possibly per stated by above patient is on steroid and bronchodilator treatment 3. Hypokalemia ?Corrected per protocol, repeat labs ordered for monitoring 4. Hypertension - Blood pressure not optimal, home medications continued with dose adjustment as needed 5. History of previous CVA ?With no residual effect 6. DVT prophylaxis ?Lovenox Charges/Coding Visit Charges Inpatient E&M: 78382 Subs Hosp L3
[2021-08-04] MEDS: Enoxaparin 30 MG/0.3 ML Syringe SC ×2 (08:38→22:29)
[2021-08-04] MEDS: dexAMETHasone 10 MG/ML Vial 6 MG IV (08:41)
[2021-08-04] MEDS: Losartan Potassium 25 MG Tablet PO (08:41)
[2021-08-04] MEDS: guaiFENesin 1,200 MG Tablet 1200 MG PO ×2 (08:41→22:29)
[2021-08-04] MEDS: CHLORHEXIDINE GLUC 2% CLOTH 1 EACH TOWELETTE TOPICAL (16:03)
[2021-08-04] MEDS: MELATONIN 10 MG TABLET PO (22:29)
[2021-08-04] MEDS: 0.9% Saline Lock 10 ML Syringe IV (22:29)
[2021-08-05] VITALS (33 sets, daily range): BP systolic 103–152; BP diastolic 53–103; PULSE 67–112; RESP 12–35; TEMP 36.3–37.1; O2SAT 90–99
[2021-08-05 04:26] LABS: Absolute Lymphocyte Count 0.55 X10^3/uL (0.83-4.51); Absolute Neutrophil Count 4.2 X10^3/uL (2.0-7.7); Basophil# 0.02 X10^3/uL; Basophil% 0.4 % (0-1); Hemoglobin 13.3 g/dL (13.0-16.5); Lymphocyte # 0.55 X10^3/ul (0.83-4.51); Lymphocyte % 10.5 % (19-41); Mean Corp Hgb Conc 33.3 g/dL (32-36); Mean Corpuscular Volume 84.2 fL (80-94); Mean Platelet Vol. 9.6 fl (6.2-12.0); Monocyte# 0.34 X10^3/uL; Monocyte% 6.5 % (0-10); NRBC Flagged by Analyzer 0 % (0-5); Neutrophil # 4.15 X10^3/uL (2.7-7.7); Neutrophil % 79.2 % (47-70); POSITIVE DIFFERENTIAL YES; Platelet Count 262 K/mm3 (150-450); RBC Distribution Width CV 13.4 % (11.6-14.6); RBC Distribution Width SD 41.6 fl (35.1-43.9); Red Blood Count 4.75 M/mm3 (4.6-6.2); White Blood Count 5.2 K/mm3 (4.4-11.0)
[2021-08-05 04:27] LABS: Differential Indicated SCAN CRITERIA MET
[2021-08-05 04:46] LABS: ALB/GLOB Ratio 0.5 RATIO (0.9-2.4); AST(SGOT) 42 U/L (15-37); Alanine Aminotransfer ALT/SGPT 37 U/L (16-61); Alkaline Phosphatase 45 U/L (45-117); Anion Gap 8 (5-15); BUN 21 mg/dL (7-18); BUN/Creat Ratio 34.4 RATIO (10-20); Calcium,Total 8.1 mg/dL (8.5-10.1); Chloride 107 mmol/L (98-107); Creatinine, Serum 0.61 mg/dL (0.70-1.30); EST Glomerular Filtration Rate 139 mL/min (>60); Est Glom Filt Rate - Afr Amer 169 mL/min (>60); Globulin 4.1 g/dL (2.2-4.2); Glucose 105 mg/dL (74-106); Potassium 3.8 mmol/L (3.5-5.1); Protein, Total 6.1 g/dL (6.4-8.2); Sodium Level 141 mmol/L (136-145)
[2021-08-05 05:45] LABS: Differential Comment SCANNED
--- NOTE | 2021-08-05 06:23 | PN.CC_ITS ---
Assessment & Plan Assessment/Plan (1) Acute respiratory failure with hypoxia: (2) Pneumonia due to COVID-19 virus: PLAN: RECOMMENDATIONS: 1. Continue to wean FiO2 to maintain oxygen saturations at or above 90%. 2. Continue remdesivir as ordered. Continue to monitor liver and renal funct ion. 3. Continue Decadron to complete 10 days of therapy. 4. Continue prophylactic Lovenox. 5. Continue baricitinib as ordered. 6. Awake prone positioning was encouraged. 7. Diuretics, as needed, to maintain euvolemic state. IMPRESSIONS: 1. Acute hypoxemic respiratory failure secondary to COVID-19 pneumonia The patient initially presented to the hospital with worsening shortness of breath and hypoxemia. Given that he was within 10 days of symptom onset, the patient was initiated on remdesivir. He will also be continued on Decadron to complete 10-day treatment course. The patient's respiratory status is still quite tenuous and he has been requiring a combination of AVAPS and heated high flow oxygen to maintain saturations. Continue to wean FiO2 to maintain saturations at or above 90%. Awake prone positioning was encouraged. CTA showed no evidence for PE. Therefore, continue prophylactic Lovenox as ordered. Given the aforementioned, baricitinib was also initiated.. Diuretics can be utilized as needed to maintain euvolemic state. 2. Obesity/hypertension/self-reported asthma/prior CVA Complicates care, management, recovery and prognosis. Continue home medications as indicated. The patient is okay with intubation if needed. This note was generated with [employer] dictation software. It may contain incorrect words, spelling, and punctuation that were not noted in checking the note before signing. Subjective Subjective The patient was seen and examined at the bedside this morning. Events from the last 24 hours have been reviewed. The patient is currently afebrile and hemodynamically stable. The patient once again did tolerate AVAPS overnight with an FiO2 requirement of 60%. He has been proactive in proning himself while sleeping. He is currently documented to be overall net -700 mL for the hospital admission. Liver and renal function are stable. The patient remains on remdesivir, Decadron, twice daily Lovenox, scheduled bronchodilators and baricitinib. Objective Data Objective Data The patient's most recent lab work, culture data and imaging studies have all been personally reviewed. Strep and urine Legionella antigens were negative. Blood and sputum cultures are pending. Vital Signs: Vital Signs Temp Pulse Resp BP Pulse Ox 98.8 F 82 18 114/65 94 08/05/21 04:00 08/05/21 04:49 08/05/21 04:49 08/05/21 04:00 08/05/21 04:49 Oxygen Flow Rate (L/min) 70 Oxygen Delivery Method Airvo Weight: 86.1 kg Body Mass Index (BMI) 30.4 Intake & Output: Intake and Output for Last 24 Hours 08/03/21 08/04/21 08/05/21 23:59 23:59 23:59 Intake Total 1675.50 / 1795.50 780 / 780 250 / 250 Output Total 1850 / 2175 1590 / 1590 Balance -174.50 / -379.50 -810 / -810 250 / 250 Medical Nutrition Assessment Dietitian: Malnutrition Criteria Met Start: 08/03/21 13:46 Freq: Status: Active Protocol: Document 08/04/21 10:08 BP (Rec: 08/04/21 10:08 BP [id number]) Nutrition Malnutrition Evidence of Malnutrition Exists Yes Malnutrition (severe): Acute Illness/Injury Evidenced By Suboptimal Energy Intake ( Severe),Weight Loss (Severe) Clinical Problem Acute Disease or Injury Related Malnutrition Etiology severe, acute malnutrition r/t inadequate energy intake d/t COVID-19 illness Signs/Symptoms as evidenced by unintentional wt loss of 5#/2.4% x 8 days, estimated PO intake meeting < 50% of estimated nutritional needs >1 week Status Active Problem Recommendation Dietitian Recommendations/Changes Rec as pt medically able advance to regular diet, with 8 oz ensure enlive w/ meals for additional calories/ protein if consumed. Lab / Micro Data Attestation: I reviewed the patient's lab results. Result Diagrams: 08/05/21 04:19 08/05/21 04:19 Labs: Laboratory Results - last 24 hr 08/05/21 04:19: WBC 5.2, RBC 4.75, Hgb 13.3, Hct 40.0, MCV 84.2, MCH 28.0, MCHC 33.3, RDW Std Deviation 41.6, RDW Coeff of Williams 13.4, Plt Count 262, MPV 9.6, Immature Gran % (Auto) 3.400 H, Neut % (Auto) 79.2 H, Lymph % (Auto) 10.5 L, [place] % (Auto) 6.5, Eos % (Auto) 0.0, Baso % (Auto) 0.4, Absolute Neuts (auto) 4.2, Absolute Lymphs (auto) 0.55 L, Nucleated RBC % 0, Differential Comment SCANNED 08/05/21 04:19: Sodium 141, Potassium 3.8, Chloride 107, Carbon Dioxide 26.0, Anion Gap 8, BUN 21 H, Creatinine 0.61 L, Estim Creat Clear Calc 68.40, Est GFR (MDRD) Af Amer 169, Est GFR (MDRD) Non-Af 139, BUN/Creatinine Ratio 34.4 H, Glucose 105, Calcium 8.1 L, Total Bilirubin 0.40, AST 42 H, ALT 37, Alkaline Phosphatase 45, Total Protein 6.1 L, Albumin 2.0 L, Globulin 4.1, Albumin/Globulin Ratio 0.5 L Micro: Microbiology 08/03/21 13:33 Urine, Clean Catch Legionella Antigen - Final 08/03/21 13:33 Urine, Clean Catch Streptococcus pneumoniae Antigen (M - Final 08/03/21 01:00 Sputum, Expectorated/Coughed Gram Stain - Final Physical Exam Const alert Constitutional Narrative: Laying in lateral recumbent position in bed. General Appearance: cooperative Nutritional Appearance: obese HEENT normocephalic and head/scalp atraumatic Eyes PERRL, EOMs intact bilaterally and conjunctivae normal Neck supple General: trachea midline Chest inspection of chest normal Resp Effort and Inspection: tachypneic; Negative for labored Auscultation: diminished lung sounds; Negative for rales, rhonchi or wheezes Cardio regular rate and regular rhythm GI normal to inspection, nondistended, normoactive bowel sounds Extremity no clubbing, cyanosis or edema Skin no rashes or lesions noted Neuro CN's II-XII intact bilaterally, moves all extremities and no focal motor deficits Psych cooperative and affect normal Charges/Coding Visit Charges Inpatient E&M: 62522 Subs Hosp L3
[2021-08-05] MEDS: Ipratropium/Albuterol Sulfate 3 ML AMPUL.NEB INHALATION ×3 (06:59→18:52)
--- NOTE | 2021-08-05 07:20 | PN.HOSP_ITS ---
Subjective Subjective Patient did experience an episode of desaturation this a.m. resulting in patient being placed back on AVAPS Objective Data Objective Data Vital Signs: Vital Signs Temp Pulse Resp BP Pulse Ox 98.8 F 95 20 H 130/69 H 90 08/05/21 04:00 08/05/21 07:00 08/05/21 07:00 08/05/21 07:00 08/05/21 07:00 Oxygen Flow Rate (L/min) 70 Oxygen Delivery Method Airvo Weight: 86.1 kg Body Mass Index (BMI) 30.4 Intake & Output: Intake and Output for Last 24 Hours 08/03/21 08/04/21 08/05/21 23:59 23:59 23:59 Intake Total 1675.50 / 1795.50 780 / 780 250 / 250 Output Total 1850 / 2175 1590 / 1590 Balance -174.50 / -379.50 -810 / -810 250 / 250 Medical Nutrition Assessment Dietitian: Malnutrition Criteria Met Start: 08/03/21 13:46 Freq: Status: Active Protocol: Document 08/04/21 10:08 BP (Rec: 08/04/21 10:08 BP [id number]) Nutrition Malnutrition Evidence of Malnutrition Exists Yes Malnutrition (severe): Acute Illness/Injury Evidenced By Suboptimal Energy Intake ( Severe),Weight Loss (Severe) Clinical Problem Acute Disease or Injury Related Malnutrition Etiology severe, acute malnutrition r/t inadequate energy intake d/t COVID-19 illness Signs/Symptoms as evidenced by unintentional wt loss of 5#/2.4% x 8 days, estimated PO intake meeting < 50% of estimated nutritional needs >1 week Status Active Problem Recommendation Dietitian Recommendations/Changes Rec as pt medically able advance to regular diet, with 8 oz ensure enlive w/ meals for additional calories/ protein if consumed. Lab / Micro Data Result Diagrams: 08/05/21 04:19 08/05/21 04:19 Labs: Laboratory Results - last 24 hr 08/05/21 04:19: WBC 5.2, RBC 4.75, Hgb 13.3, Hct 40.0, MCV 84.2, MCH 28.0, MCHC 33.3, RDW Std Deviation 41.6, RDW Coeff of Williams 13.4, Plt Count 262, MPV 9.6, Immature Gran % (Auto) 3.400 H, Neut % (Auto) 79.2 H, Lymph % (Auto) 10.5 L, [place] % (Auto) 6.5, Eos % (Auto) 0.0, Baso % (Auto) 0.4, Absolute Neuts (auto) 4.2, Absolute Lymphs (auto) 0.55 L, Nucleated RBC % 0, Differential Comment SCANNED 08/05/21 04:19: Sodium 141, Potassium 3.8, Chloride 107, Carbon Dioxide 26.0, Anion Gap 8, BUN 21 H, Creatinine 0.61 L, Estim Creat Clear Calc 68.40, Est GFR (MDRD) Af Amer 169, Est GFR (MDRD) Non-Af 139, BUN/Creatinine Ratio 34.4 H, Glucose 105, Calcium 8.1 L, Total Bilirubin 0.40, AST 42 H, ALT 37, Alkaline Parker sphatase 45, Total Protein 6.1 L, Albumin 2.0 L, Globulin 4.1, Albumin/Globulin Ratio 0.5 L Micro: Microbiology 08/03/21 13:33 Urine, Clean Catch Legionella Antigen - Final 08/03/21 13:33 Urine, Clean Catch Streptococcus pneumoniae Antigen (M - Final 08/03/21 01:00 Sputum, Expectorated/Coughed Gram Stain - Final Physical Exam Narrative GENERAL: Dyspneic at rest HEENT: Atraumatic; EYES; Anicteric, Normal Conjunctiva NECK; supple, normal thyroid, RESPIRATORY: Diminished to auscultation CARDIOVASCULAR: Regular S1 S2, GI: soft, normoactive bowel sounds, : No Renal angle tenderness; EXTREMITIES: No edema, no clubbing, MUSCULOSKELETAL: no muscle waisting NEURO: Awake; no lateralizing signs. SKIN: No Rash PSYCH; Flat affect Assessment & Plan Assessment/Plan (1) Acute respiratory failure with hypoxia: (2) Pneumonia due to COVID-19 virus: PLAN: Patient is a 66-year-old gentleman unvaccinated against COVID-19 who presented with progressive shortness of breath. He was seen and evaluated at the [place] ER found to be significantly hypoxic placed on BiPAP and subsequently transferred to the [facility] 1. Acute hypoxic respiratory failure secondary to bilateral COVID-19 pneumonia -Admitted to regular nursing floor patient was started on dexamethasone and remdesivir. Patient symptoms started on 07/26/2021. Was also placed on supplemental oxygen via Airvo titrated to keep oxygen saturation greater than 90. Patient remains in ICU consultation was placed to pulmonary medicine. ?08/04/2021.Patient seen remains in ICU. Remains on high flow oxygen via Airvo with FiO2 of 100% and flow of 70 L/min. Patient desaturated easily with activity including talking dropping to the mid 80s ?08/05/2021;Patient did experience an episode of desaturation this a.m. resulting in patient being placed back on AVAPS overall clinical condition remains critical 2. Acute asthma exacerbation ?Possibly per stated by above patient is on steroid and bronchodilator treatment 3. Hypokalemia ?Corrected per protocol, repeat labs ordered for monitoring 4. Hypertension - Blood pressure not optimal, home medications continued with dose adjustment as needed 5. History of previous CVA ?With no residual effect 6. DVT prophylaxis ?[place]ate Charges/Coding Visit Charges Inpatient E&M: 90949 [facility] Hosp L3
[2021-08-05] MEDS: Furosemide 40 MG/4 ML Vial IV (08:41)
[2021-08-05] MEDS: Losartan Potassium 25 MG Tablet PO (10:17)
[2021-08-05] MEDS: Enoxaparin 30 MG/0.3 ML Syringe SC ×2 (10:17→22:07)
[2021-08-05] MEDS: guaiFENesin 1,200 MG Tablet 1200 MG PO ×2 (10:17→22:07)
[2021-08-05] MEDS: dexAMETHasone 10 MG/ML Vial 6 MG IV (10:17)
[2021-08-05] MEDS: Sodium Chloride 0.65% 1 SPRAY SPRAY.BTL 2 SPRAY NASAL ×2 (10:28→22:07)
[2021-08-05] MEDS: MELATONIN 10 MG TABLET PO (22:07)
[2021-08-06] VITALS (32 sets, daily range): BP systolic 105–179; BP diastolic 57–102; PULSE 71–129; RESP 12–37; TEMP 36.5–37.6; O2SAT 87–97
[2021-08-06 05:39] LABS: Absolute Lymphocyte Count 0.47 X10^3/uL (0.83-4.51); Absolute Neutrophil Count 9.3 X10^3/uL (2.0-7.7); Basophil# 0.03 X10^3/uL; Basophil% 0.3 % (0-1); Hemoglobin 13.9 g/dL (13.0-16.5); Lymphocyte # 0.47 X10^3/ul (0.83-4.51); Lymphocyte % 4.5 % (19-41); Mean Corp Hgb Conc 33.1 g/dL (32-36); Mean Corpuscular Hgb 27.7 pg (27.0-32.0); Mean Corpuscular Volume 83.7 fL (80-94); Mean Platelet Vol. 9.5 fl (6.2-12.0); Monocyte# 0.36 X10^3/uL; Monocyte% 3.5 % (0-10); NRBC Flagged by Analyzer 0 % (0-5); Neutrophil % 89.2 % (47-70); POSITIVE DIFFERENTIAL YES; Platelet Count 293 K/mm3 (150-450); RBC Distribution Width CV 13.3 % (11.6-14.6); RBC Distribution Width SD 40.7 fl (35.1-43.9); Red Blood Count 5.02 M/mm3 (4.6-6.2); White Blood Count 10.4 K/mm3 (4.4-11.0)
[2021-08-06 05:43] LABS: Differential Indicated SCAN CRITERIA MET
[2021-08-06 05:50] LABS: ALB/GLOB Ratio 0.5 RATIO (0.9-2.4); AST(SGOT) 53 U/L (15-37); Alanine Aminotransfer ALT/SGPT 50 U/L (16-61); Albumin, Serum 2.2 g/dL (3.2-5.0); Alkaline Phosphatase 50 U/L (45-117); Anion Gap 9 (5-15); BUN 23 mg/dL (7-18); BUN/Creat Ratio 37.7 RATIO (10-20); Calcium,Total 8.4 mg/dL (8.5-10.1); Chloride 105 mmol/L (98-107); Creatinine, Serum 0.61 mg/dL (0.70-1.30); EST Glomerular Filtration Rate 140 mL/min (>60); Est Glom Filt Rate - Afr Amer 169 mL/min (>60); Globulin 4.2 g/dL (2.2-4.2); Glucose 107 mg/dL (74-106); Potassium 3.7 mmol/L (3.5-5.1); Protein, Total 6.4 g/dL (6.4-8.2); Sodium Level 140 mmol/L (136-145)
[2021-08-06] MEDS: Ipratropium/Albuterol Sulfate 3 ML AMPUL.NEB INHALATION ×3 (07:01→19:30)
--- NOTE | 2021-08-06 08:19 | PN.HOSP_ITS ---
Subjective Subjective Follow-up on acute respiratory failure/acute COVID-19 pneumonia: Patient was seen and examined. He is on Airvo. Denies fever or chills. Objective Data Objective Data Vital Signs: Vital Signs Temp Pulse Resp BP Pulse Ox 98.1 F 125 H 20 H 151/81 H 91 08/06/21 04:00 08/06/21 07:01 08/06/21 07:01 08/06/21 07:00 08/06/21 07:01 Oxygen Flow Rate (L/min) 65 Oxygen Delivery Method Airvo Weight: 86.5 kg Body Mass Index (BMI) 30.4 Intake & Output: Intake and Output for Last 24 Hours 08/04/21 08/05/21 08/06/21 23:59 23:59 23:59 Intake Total 780 / 780 250 / 370 370 / 370 Output Total 1590 / 1590 2000 / 2200 580 / 580 Balance -810 / -810 -1750 / -1830 -210 / -210 Medical Nutrition Assessment Dietitian: Malnutrition Criteria Met Start: 08/03/21 13:46 Freq: Status: Active Protocol: Document 08/04/21 10:08 BP (Rec: 08/04/21 10:08 BP [id number]) Nutrition Malnutrition Evidence of Malnutrition Exists Yes Malnutrition (severe): Acute Illness/Injury Evidenced By Suboptimal Energy Intake ( Severe),Weight Loss (Severe) Clinical Problem Acute Disease or Injury Related Malnutrition Etiology severe, acute malnutrition r/t inadequate energy intake d/t COVID-19 illness Signs/Symptoms as evidenced by unintentional wt loss of 5#/2.4% x 8 days, estimated PO intake meeting < 50% of estimated nutritional needs >1 week Status Active Problem Recommendation Dietitian Recommendations/Changes Rec as pt medically able advance to regular diet, with 8 oz ensure enlive w/ meals for additional calories/ protein if consumed. Lab / Micro Data Result Diagrams: 08/06/21 05:00 08/06/21 05:00 Labs: Laboratory Results - last 24 hr 08/06/21 05:00: WBC 10.4, RBC 5.02, Hgb 13.9, Hct 42.0, MCV 83.7, MCH 27.7, MCHC 33.1, RDW Std Deviation 40.7, RDW Coeff of Williams 13.3, Plt Count 293, MPV 9.5, Immature Gran % (Auto) 2.500 H, Neut % (Auto) 89.2 H, Lymph % (Auto) 4.5 L, [place] % (Auto) 3.5, Eos % (Auto) 0.0, Baso % (Auto) 0.3, Absolute Neuts (auto) 9.3 H, Absolute Lymphs (auto) 0.47 L, Nucleated RBC % 0 08/06/21 05:00: Sodium 140, Potassium 3.7, Chloride 105, Carbon Dioxide 26.0, Anion Gap 9, BUN 23 H, Creatinine 0.61 L, Estim Creat Clear Calc 68.40, Est GFR (MDRD) Af Amer 169, Est GFR (MDRD) Non-Af 140, BUN/Creatinine Ratio 37.7 H, Glucose 107 H, Calcium 8.4 L, Total Bilirubin 0.50, AST 53 H, ALT 50, Alkaline Phosphatase 50, Total Protein 6.4, Albumin 2.2 L, Globulin 4.2, Albumin/Globulin Ratio 0.5 L Micro: Microbiology 08/03/21 01:00 Sputum, Expectorated/Coughed Gram Stain - Final 08/03/21 01:00 Sputum, Expectorated/Coughed Respiratory Culture - Final Mixed normal respiratory christina. No Streptococcus pneumoniae, beta-hemolytic Streptococcus or Staphylococcus aureus isolated. 08/03/21 13:33 Urine, Clean Catch Legionella Antigen - Final 08/03/21 13:33 Urine, Clean Catch Streptococcus pneumoniae Antigen (M - Final Physical Exam Narrative Appears frailPhysical exam: General: Alert, Oriented x3, Cooperative, no apparent distress, appears frail, on Airvo HEENT: Atraumatic Oral: Moist Mucosa Neck: Supple Lungs: Diminished to auscultation Cardiovascular: HS I+II, regular, no murmurs Abdomen: Bowel Sounds Present, Soft, Non Tender Extremities: No edema Assessment & Plan Assessment/Plan (1) Pneumonia due to COVID-19 virus: (2) Acute respiratory failure with hypoxia: (3) Acute asthma exacerbation: QUALIFIERS: Asthma persistence: intermittent Asthma severity: mild Qualified Code(s): J45.21 - Mild intermittent asthma with (acute) exacerbation (4) Hypokalemia: (5) Severe malnutrition: PLAN: 1. Acute hypoxic respiratory failure secondary to Acute COVID-19 pneumonia Patient is on Airvo Patient is unvaccinated; presented with 8-day history of fever, chills, shortness of breath. Tested positive for Covid on 07/28 CXR and CTA of the chest done in outside hospital showed bilateral infiltrates, negative for acute PE Continue on baricitinib, dexamethasone, remdesivir 2. Acute asthma exacerbation, improved, management as in #1 3. Hypokalemia, resolved 4. Hypertension, continue on metoprolol and losartan Charges/Coding Visit Charges Inpatient E&M: 43873 Subs Hosp L3
[2021-08-06] MEDS: Losartan Potassium 25 MG Tablet PO (08:20)
[2021-08-06] MEDS: Furosemide 40 MG/4 ML Vial IV (08:20)
[2021-08-06] MEDS: Potassium Chloride Oral Tablet 20 MEQ 40 MEQ PO (08:20)
[2021-08-06] MEDS: Acetaminophen 325 MG Tablet 650 MG PO ×2 (08:33→21:34)
--- NOTE | 2021-08-06 10:16 | PN.CC_ITS ---
Assessment & Plan Assessment/Plan (1) Acute respiratory failure with hypoxia: (2) Pneumonia due to COVID-19 virus: PLAN: RECOMMENDATIONS: 1. Continue to wean FiO2 to maintain oxygen saturations at or above 90%. 2. Complete Remdesivir today. Continue Decadron (08/12/21) and baricitinib (08/17/21) 3. Increase activity as tolerated. Encourage prone positioning, Acapella and incentive spirometer as tolerated 4. Continue prophylactic Lovenox. 5. Diuretics, as needed, to maintain euvolemic state. IMPRESSIONS: 1. Acute hypoxemic respiratory failure secondary to COVID-19 pneumonia The patient initially presented to the hospital with worsening shortness of breath and hypoxemia. Given that he was within 10 days of symptom onset, the patient was initiated on remdesivir. He will also be continued on Decadron to complete 10-day treatment course. The patient's respiratory status is still quite tenuous and he has been requiring a combination of AVAPS and heated high flow oxygen to maintain saturations. Continue to wean FiO2 to maintain saturations at or above 90%. Awake prone positioning was encouraged. CTA sh owed no evidence for PE. Patient should complete Remdesivir today. Baricitinib and Decadron have been ordered. We will continue to use diuretics to facilitate euvolemia. Despite aggressive measures, cannot exclude need for intubation, so patient should remain in the intensive care unit 2. Obesity/hypertension/self-reported asthma/prior CVA Complicates care, management, recovery and prognosis. Continue home medications as indicated. The patient is okay with intubation if needed. Subjective Subjective Patient did okay overnight. Patient was able to tolerate BiPAP with sleep. Pat ient was transitioned to Airvo this morning, but requiring 93% FiO2 to maintain saturations. Patient subjectively feels improved compared to yesterday. Patient is reporting a cough that is nonproductive. Patient reports compliance with incentive spirometer and Acapella. Patient has been in persistent sinus tachycardia overnight Objective Data Objective Data Vital Signs: Vital Signs Temp Pulse Resp BP Pulse Ox 37.6 C H 118 H 26 H 144/102 H 94 08/06/21 08:00 08/06/21 09:00 08/06/21 09:00 08/06/21 09:00 08/06/21 09:00 Oxygen Flow Rate (L/min) 60 Oxygen Delivery Method Airvo Weight: 86.5 kg Body Mass Index (BMI) 30.4 Intake & Output: Intake and Output for Last 24 Hours 08/04/21 08/05/21 08/06/21 23:59 23:59 23:59 Intake Total 780 / 780 250 / 370 370 / 370 Output Total 1590 / 1590 2000 / 2200 680 / 680 Balance -810 / -810 -1750 / -1830 -310 / -310 Medical Nutrition Assessment Dietitian: Malnutrition Criteria Met Start: 08/03/21 13:46 Freq: Status: Active Protocol: Document 08/04/21 10:08 BP (Rec: 08/04/21 10:08 BP [id number]) Nutrition Malnutrition Evidence of Malnutrition Exists Yes Malnutrition (severe): Acute Illness/Injury Evidenced By Suboptimal Energy Intake ( Severe),Weight Loss (Severe) Clinical Problem Acute Disease or Injury Related Malnutrition Etiology severe, acute malnutrition r/t inadequate energy intake d/t COVID-19 illness Signs/Symptoms as evidenced by unintentional wt loss of 5#/2.4% x 8 days, estimated PO intake meeting < 50% of estimated nutritional needs >1 week Status Active Problem Recommendation Dietitian Recommendations/Changes Rec as pt medically able advance to regular diet, with 8 oz ensure enlive w/ meals for additional calories/ protein if consumed. Lab / Micro Data Result Diagrams: 08/06/21 05:00 08/06/21 05:00 Labs: Laboratory Results - last 24 hr 08/06/21 05:00: WBC 10.4, RBC 5.02, Hgb 13.9, Hct 42.0, MCV 83.7, MCH 27.7, MCHC 33.1, RDW Std Deviation 40.7, RDW Coeff of Williams 13.3, Plt Count 293, MPV 9.5, Immature Gran % (Auto) 2.500 H, Neut % (Auto) 89.2 H, Lymph % (Auto) 4.5 L, [place] % (Auto) 3.5, Eos % (Auto) 0.0, Baso % (Auto) 0.3, Absolute Neuts (auto) 9.3 H, Absolute Lymphs (auto) 0.47 L, Nucleated RBC % 0 08/06/21 05:00: Sodium 140, Potassium 3.7, Chloride 105, Carbon Dioxide 26.0, Anion Gap 9, BUN 23 H, Creatinine 0.61 L, Estim Creat Clear Calc 68.40, Est GFR (MDRD) Af Amer 169, Est GFR (MDRD) Non-Af 140, BUN/Creatinine Ratio 37.7 H, Glucose 107 H, Calcium 8.4 L, Total Bilirubin 0.50, AST 53 H, ALT 50, Alkaline Phosphatase 50, Total Protein 6.4, Albumin 2.2 L, Globulin 4.2, Albumin/Globulin Ratio 0.5 L Micro: Microbiology 08/03/21 01:00 Sputum, Expectorated/Coughed Gram Stain - Final 08/03/21 01:00 Sputum, Expectorated/Coughed Respiratory Culture - Final Mixed normal respiratory christina. No Streptococcus pneumoniae, beta-hemolytic Streptococcus or Staphylococcus aureus isolated. 08/03/21 13:33 Urine, Clean Catch Legionella Antigen - Final 08/03/21 13:33 Urine, Clean Catch Streptococcus pneumoniae Antigen (M - Final Physical Exam Const alert Constitutional Narrative: Sitting in the chair with mild to moderate conversational dyspnea General Appearance: cooperative Nutritional Appearance: obese HEENT normocephalic and head/scalp atraumatic Eyes PERRL, EOMs intact bilaterally and conjunctivae normal Neck supple General: trachea midline Chest inspection of chest normal Resp Effort and Inspection: tachypneic; Negative for labored Auscultation: diminished lung sounds; Negative for rales, rhonchi or wheezes Cardio regular rate and regular rhythm GI normal to inspection, nondistended, normoactive bowel sounds Extremity no clubbing, cyanosis or edema Skin no rashes or lesions noted Neuro CN's II-XII intact bilaterally, moves all extremities and no focal motor deficits Psych cooperative and affect normal Charges/Coding Visit Charges Inpatient E&M: 58700 Subs Hosp L3
[2021-08-06] MEDS: dexAMETHasone 10 MG/ML Vial 6 MG IV (10:43)
[2021-08-06] MEDS: Enoxaparin 30 MG/0.3 ML Syringe SC ×2 (10:43→21:34)
[2021-08-06] MEDS: guaiFENesin 1,200 MG Tablet 1200 MG PO ×2 (10:43→21:34)
[2021-08-06] MEDS: CHLORHEXIDINE GLUC 2% CLOTH 1 EACH TOWELETTE TOPICAL (12:32)
--- NOTE | 2021-08-06 14:01 | PCM.CONS.GEN ---
Assessment & Plan Assessment/Plan (1) Pneumonia due to COVID-19 virus: PLAN: Sx started 07/25. Unvaccinated. Isolate for 20 days, stop date 08/13/21. Recommend vaccine once out of iso. On dex, baricitinib, and remdesivir. Will follow, thank you (2) Acute respiratory failure with hypoxia: HPI Consult Data Date of Consult: 08/06/21 HPI Narrative HPI Narrative: RABIA ALCANTARA, is a 66 M who presented 08/03 as a transfer from [place]. was also sick and hospitalized with covid. Sx started around 07/25. Unvaccinated. C/o dyspnea, cough, fatigue, not feeling well. Admitted here, started on dex, remdesivir, baricitinib. Feeling a little better. Full ROS performed and neg except as noted above. [facility] Medical History Asthma Hypertension Narcolepsy Stroke/cerebrovascular accident Home Medications doxycycline monohydrate 08/03/21 [History Last Taken Unknown] metoprolol tartrate 25 mg PO BID 08/03/21 [History Last Taken Unknown] olmesartan-hydrochlorothiazide 1 tab PO DAILY 08/03/21 [History Last Taken Unknown] aspirin 325 mg PO DAILY 08/04/21 [History Last Taken Unknown] diphenhydramine HCl [Benadryl] 50 mg PO QHS 08/04/21 [History Last Taken Unknown] Allergy/AdvReac Type Severity Reaction Status Date / Time cephalexin [From Keflex] Allergy Rash Verified 08/03/21 00:22 theophylline Allergy Rash Verified 08/03/21 00:22 Social History Smoking Status: Unknown if ever smoked Physical Exam Const alert, oriented x3 and no apparent distress General Appearance: cooperative Exam Limitations: no limitations HEENT normocephalic and head/scalp atraumatic Eyes PERRL Eyes Narrative: L eye red Neck supple and No nodes Resp Auscultation: diminished lung sounds Cardio regular rate and regular rhythm GI normal to inspection, nondistended, normoactive bowel sounds Extremity no clubbing, cyanosis or edema Skin no rashes or lesions noted Neuro CN's II-XII intact bilaterally Medical Records Data Medical Nutrition Assessment Dietitian: Malnutrition Criteria Met Start: 08/03/21 13:46 Freq: Status: Active Protocol: Document 08/06/21 12:05 SLA (Rec: 08/06/21 12:05 SLA [id number]) Nutrition Malnutrition Evidence of Malnutrition Exists Yes Malnutrition (severe): Acute Illness/Injury Evidenced By Suboptimal Energy Intake ( Severe),Weight Loss (Severe) Clinical Problem Acute Disease or Injury Related Malnutrition Etiology severe, acute malnutrition r/t inadequate energy intake d/t COVID-19 illness Signs/Symptoms as evidenced by unintentional wt loss of 5#/2.4% x 9 days, estimated PO intake meeting < 50% of estimated nutritional needs >1 week Status Active Problem Recommendation Dietitian Recommendations/Changes Rec as pt medically able advance to Regular diet, Will provide 8 oz ensure clear w/ meals for additional calories/protein if consumed. Lab / Micro Data Result Diagrams: 08/06/21 05:00 08/06/21 05:00 Labs: Laboratory Results - last 24 hr 08/06/21 05:00: WBC 10.4, RBC 5.02, Hgb 13.9, Hct 42.0, MCV 83.7, MCH 27.7, MCHC 33.1, RDW Std Deviation 40.7, RDW Coeff of Williams 13.3, Plt Count 293, MPV 9.5, Immature Gran % (Auto) 2.500 H, Neut % (Auto) 89.2 H, Lymph % (Auto) 4.5 L, [place] % (Auto) 3.5, Eos % (Auto) 0.0, Baso % (Auto) 0.3, Absolute Neuts (auto) 9.3 H, Absolute Lymphs (auto) 0.47 L, Nucleated RBC % 0 08/06/21 05:00: Sodium 140, Potassium 3.7, Chloride 105, Carbon Dioxide 26.0, Anion Gap 9, BUN 23 H, Creatinine 0.61 L, Estim Creat Clear Calc 68.40, Est GFR (MDRD) Af Amer 169, Est GFR (MDRD) Non-Af 140, BUN/Creatinine Ratio 37.7 H, Glucose 107 H, Calcium 8.4 L, Total Bilirubin 0.50, AST 53 H, ALT 50, Alkaline Phosphatase 50, Total Protein 6.4, Albumin 2.2 L, Globulin 4.2, Albumin/Globulin Ratio 0.5 L Micro: Microbiology 08/03/21 18:00 Blood Culture (Wb) - Anticubital Left Blood Culture - Preliminary No growth in 48 hours. 08/03/21 20:20 Blood Culture (Wb) - Right Hand Blood Culture - Preliminary No growth in 48 hours. 08/03/21 01:00 Sputum, Expectorated/Coughed Gram Stain - Final 08/03/21 01:00 Sputum, Expectorated/Coughed Respiratory Culture - Final Mixed normal respiratory christina. No Streptococcus pneumoniae, beta-hemolytic Streptococcus or Staphylococcus aureus isolated.
--- NOTE | 2021-08-06 14:07 | CHAPLAIN ---
Type of Pastoral Visit ___ Initial Visit ___ Follow-up Visit ___ On-call Visit ___ General Patient Visit ___ Spiritual Assessment ___ Family Conference ___ Bereavement ___ Rapid Response ___ Code Blue _x__ Other (describe below) Pastoral Care Referral From _x__ Patient ___ Family ___ Nurse ___ Physician ___ Merchandise Processor ___ Shank Breaker ___ Other (describe below) Sacrament/Intervention _x__ Active listening ___ Anointing ___ Christianity ___ Bereavement ___ Communion ___ Tasneem exploration ___ ___ Life review _x__ Prayer ___ Reconciliation ___ Sacrament of Sick ___ Supportive presence ___ Wedding ___ Other (describe below) Pastoral Comments phone call made into isolation room; assured pt that there is care for him and offer of support and prayer; prayer was welcomed
[2021-08-06] MEDS: Metoprolol Tartrate 25 MG Tablet PO (21:33)
[2021-08-06] MEDS: MELATONIN 10 MG TABLET PO (21:33)
[2021-08-07] VITALS (35 sets, daily range): BP systolic 110–146; BP diastolic 50–104; PULSE 73–111; RESP 12–39; TEMP 36.6–37.1; O2SAT 85–96
[2021-08-07 05:07] LABS: Absolute Lymphocyte Count 0.68 X10^3/uL (0.83-4.51); Absolute Neutrophil Count 8.9 X10^3/uL (2.0-7.7); Basophil# 0.04 X10^3/uL; Basophil% 0.4 % (0-1); Eosinophil# 0.01 X10^3/uL; Eosinophils% 0.1 % (0-5); Hematocrit 39.6 % (40-54); Hemoglobin 13.4 g/dL (13.0-16.5); Lymphocyte # 0.68 X10^3/ul (0.83-4.51); Lymphocyte % 6.6 % (19-41); Mean Corp Hgb Conc 33.8 g/dL (32-36); Mean Corpuscular Hgb 28.3 pg (27.0-32.0); Mean Corpuscular Volume 83.5 fL (80-94); Mean Platelet Vol. 9.5 fl (6.2-12.0); Monocyte# 0.24 X10^3/uL; Monocyte% 2.3 % (0-10); NRBC Flagged by Analyzer 0 % (0-5); Neutrophil # 8.94 X10^3/uL (2.7-7.7); Neutrophil % 87.4 % (47-70); Platelet Count 264 K/mm3 (150-450); RBC Distribution Width CV 13.2 % (11.6-14.6); RBC Distribution Width SD 40.5 fl (35.1-43.9); Red Blood Count 4.74 M/mm3 (4.6-6.2); White Blood Count 10.2 K/mm3 (4.4-11.0)
--- NOTE | 2021-08-07 06:14 | NURSING ---
This RN and another RN attempted multiple times to draw labs on pt, unsuccessful. This RN called lab to request a lab draw attempt.
--- NOTE | 2021-08-07 07:10 | PCM.PN.INT ---
Assessment & Plan Assessment/Plan (1) Acute respiratory failure with hypoxia: (2) Pneumonia due to COVID-19 virus: PLAN: RECOMMENDATIONS: 1. Continue to wean FiO2 to maintain oxygen saturations at or above 90%. 2. Completed Remdesivir. Continue Decadron (08/12/21) and baricitinib (08/17/21) 3. Increase activity as tolerated. Encourage prone positioning, Acapella and incentive spirometer as tolerated 4. Continue prophylactic Lovenox. 5. Diuretics, as needed, to maintain euvolemic state. Possible diuresis pending chemistries IMPRESSIONS: 1. Acute hypoxemic respiratory failure secondary to COVID-19 pneumonia The patient initially presented to the hospital with worsening shortness of breath and hypoxemia. Given that he was within 10 days of symptom onset, the patient was initiated on remdesivir. He will also be continued on Decadron to complete 10-day treatment course. The patient's respiratory status is still quite tenuous and he has been requiring a combination of AVAPS and heated high flow oxygen to maintain saturations. Continue to wean FiO2 to maintain saturations at or above 90%. Awake prone positioning was encouraged. CTA showed no evidence for PE. Completed Remdesivir. Baricitinib and Decadron courses have been ordered. We will continue to use diuretics to facilitate euvolemia. Despite aggressive measures, cannot exclude need for intubation, so patient should remain in the intensive care unit. 2. Obesity/hypertension/self-reported asthma/prior CVA Complicates care, management, recovery and prognosis. Continue home medications as indicated. The patient is okay with intubation if needed. Subjective Subjective Patient did okay overnight. Patient was able to tolerate BiPAP with sleep. Chemistries are still pending as patient is a difficult blood draw. Patient is not reporting any chest pain. Patient does have a cough with mild to moderate production. Objective Data Objective Data Vital Signs: Vital Signs Temp Pulse Resp BP Pulse Ox 36.9 C 88 22 H 128/66 H 92 08/07/21 05:00 08/07/21 06:00 08/07/21 06:00 08/07/21 06:00 08/07/21 06:00 Oxygen Flow Rate (L/min) 60 Oxygen Delivery Method Airvo Weight: 85 kg Body Mass Index (BMI) 30.4 Intake & Output: Intake and Output for Last 24 Hours 08/05/21 08/06/21 08/07/21 23:59 23:59 23:59 Intake Total 250 / 370 370 / 370 250 / 250 Output Total 1999 1755 / 1755 275 / 275 Balance -1750 / -1830 -1385 / -1385 -25 / -25 Medical Nutrition Assessment Dietitian: Malnutrition Criteria Met Start: 08/03/21 13:46 Freq: Status: Active Protocol: Document 08/06/21 12:05 YAEL (Rec: 08/06/21 12:05 [facility] [id number]) Nutrition Malnutrition Evidence of Malnutrition Exists Yes Malnutrition (severe): Acute Illness/Injury Evidenced By Suboptimal Energy Intake ( Severe),Weight Loss (Severe) Clinical Problem Acute Disease or Injury Related Malnutrition Etiology severe, acute malnutrition r/t inadequate energy intake d/t COVID-19 illness Signs/Symptoms as evidenced by unintentional wt loss of 5#/2.4% x 9 days, estimated PO intake meeting < 50% of estimated nutritional needs >1 week Status Active Problem Recommendation Dietitian Recommendations/Changes Rec as pt medically able advance to Regular diet, Will provide 8 oz ensure clear w/ meals for additional calories/protein if consumed. Lab / Micro Data Result Diagrams: 08/07/21 04:50 08/06/21 05:00 Labs: Laboratory Results - last 24 hr 08/07/21 04:50: WBC 10.2, RBC 4.74, Hgb 13.4, Hct 39.6 L, MCV 83.5, MCH 28.3, MCHC 33.8, RDW Std Deviation 40.5, RDW Coeff of Williams 13.2, Plt Count 264, MPV 9.5, Immature Gran % (Auto) 3.200 H, Neut % (Auto) 87.4 H, Lymph % (Auto) 6.6 L, [place] % (Auto) 2.3, Eos % (Auto) 0.1, Baso % (Auto) 0.4, Absolute Neuts (auto) 8.9 H, Absolute Lymphs (auto) 0.68 L, Nucleated RBC % 0 Micro: Microbiology 08/03/21 18:00 Blood Culture (Wb) - Anticubital Left Blood Culture - Preliminary No growth in 48 hours. 08/03/21 20:20 Blood Culture (Wb) - Right Hand Blood Culture - Preliminary No growth in 48 hours. 08/03/21 01:00 Sputum, Expectorated/Coughed Gram Stain - Final 08/03/21 01:00 Sputum, Expectorated/Coughed Respiratory Culture - Final Mixed normal respiratory christina. No Streptococcus pneumoniae, beta-hemolytic Streptococcus or Staphylococcus aureus isolated. 08/03/21 13:33 Urine, Clean Catch Legionella Antigen - Final 08/03/21 13:33 Urine, Clean Catch Streptococcus pneumoniae Antigen (M - Final Physical Exam Const alert Constitutional Narrative: Sitting in the chair with mild to moderate conversational dyspnea General Appearance: cooperative Nutritional Appearance: obese HEENT normocephalic and head/scalp atraumatic Eyes PERRL, EOMs intact bilaterally and conjunctivae normal Neck supple General: trachea midline Chest inspection of chest normal Resp Resp Narrative: Appears slightly more comfortable compared to yesterday Effort and Inspection: tachypneic; Negative for labored Auscultation: diminished lung sounds; Negative for rales, rhonchi or wheezes Cardio regular rate and regular rhythm GI normal to inspection, nondistended, normoactive bowel sounds Extremity no clubbing, cyanosis or edema Skin no rashes or lesions noted Neuro CN's II-XII intact bilaterally, moves all extremities and no focal motor deficits Psych cooperative and affect normal Charges/Coding Visit Charges Inpatient E&M: 63223 Subs Hosp L3
[2021-08-07] MEDS: Ipratropium/Albuterol Sulfate 3 ML AMPUL.NEB INHALATION ×3 (07:11→19:20)
[2021-08-07 08:16] LABS: ALB/GLOB Ratio 0.5 RATIO (0.9-2.4); AST(SGOT) 49 U/L (15-37); Alanine Aminotransfer ALT/SGPT 50 U/L (16-61); Alkaline Phosphatase 49 U/L (45-117); Anion Gap 6 (5-15); BUN 20 mg/dL (7-18); BUN/Creat Ratio 29.7 RATIO (10-20); Calcium,Total 8.3 mg/dL (8.5-10.1); Chloride 104 mmol/L (98-107); Creatinine, Serum 0.67 mg/dL (0.70-1.30); EST Glomerular Filtration Rate 124 mL/min (>60); Est Glom Filt Rate - Afr Amer 151 mL/min (>60); Globulin 4.1 g/dL (2.2-4.2); Glucose 103 mg/dL (74-106); Potassium 3.6 mmol/L (3.5-5.1); Protein, Total 6.1 g/dL (6.4-8.2); Sodium Level 138 mmol/L (136-145)
[2021-08-07] MEDS: 0.9% Saline Lock 10 ML Syringe IV (09:07)
[2021-08-07] MEDS: Aspirin 325 MG Tablet PO (09:08)
[2021-08-07] MEDS: dexAMETHasone 10 MG/ML Vial 6 MG IV (09:08)
[2021-08-07] MEDS: Losartan Potassium 25 MG Tablet PO (09:08)
[2021-08-07] MEDS: Enoxaparin 30 MG/0.3 ML Syringe SC ×2 (09:09→21:22)
[2021-08-07] MEDS: guaiFENesin 1,200 MG Tablet 1200 MG PO ×2 (09:09→21:23)
[2021-08-07] MEDS: Metoprolol Tartrate 25 MG Tablet PO ×2 (09:12→21:22)
--- NOTE | 2021-08-07 13:08 | PCM.PN.HOSP ---
Subjective Subjective Follow-up on acute respiratory failure/acute COVID-19 pneumonia: Patient was seen and examined. He remains on Airvo with slight improvement in the FiO2. He denies any fever or chills. Objective Data Objective Data Vital Signs: Vital Signs Temp Pulse Resp BP Pulse Ox 98.7 F 85 25 H 125/62 H 90 08/07/21 08:00 08/07/21 11:04 08/07/21 11:04 08/07/21 11:00 08/07/21 11:04 Oxygen Flow Rate (L/min) 60 Oxygen Delivery Method Airvo Weight: 85 kg Body Mass Index (BMI) 30.4 Intake & Output: Intake and Output for Last 24 Hours 08/05/21 08/06/21 08/07/21 23:59 23:59 23:59 Intake Total 250 / 370 370 / 370 1210 / 1210 Output Total 1999 / 0 1755 / 1755 575 / 575 Balance -1750 / -1830 -1385 / -1385 635 / 635 Medical Nutrition Assessment Dietitian: Malnutrition Criteria Met Start: 08/03/21 13:46 Freq: Status: Active Protocol: Document 08/06/21 12:05 YAEL (Rec: 08/06/21 12:05 [facility] [id number]) Nutrition Malnutrition Evidence of Malnutrition Exists Yes Malnutrition (severe): Acute Illness/Injury Evidenced By Suboptimal Energy Intake ( Severe),Weight Loss (Severe) Clinical Problem Acute Disease or Injury Related Malnutrition Etiology severe, acute malnutrition r/t inadequate energy intake d/t COVID-19 illness Signs/Symptoms as evidenced by unintentional wt loss of 5#/2.4% x 9 days, estimated PO intake meeting < 50% of estimated nutritional needs >1 week Status Active Problem Recommendation Dietitian Recommendations/Changes Rec as pt medically able advance to Regular diet, Will provide 8 oz ensure clear w/ meals for additional calories/protein if consumed. Lab / Micro Data Result Diagrams: 08/07/21 04:50 08/07/21 07:40 Labs: Laboratory Results - last 24 hr 08/07/21 04:50: WBC 10.2, RBC 4.74, Hgb 13.4, Hct 39.6 L, MCV 83.5, MCH 28.3, MCHC 33.8, RDW Std Deviation 40.5, RDW Coeff of Williams 13.2, Plt Count 264, MPV 9.5, Immature Gran % (Auto) 3.200 H, Neut % (Auto) 87.4 H, Lymph % (Auto) 6.6 L, [place] % (Auto) 2.3, Eos % (Auto) 0.1, Baso % (Auto) 0.4, Absolute Neuts (auto) 8.9 H, Absolute Lymphs (auto) 0.68 L, Nucleated RBC % 0 08/07/21 07:40: Sodium 138, Potassium 3.6, Chloride 104, Carbon Dioxide 28.0, Anion Gap 6, BUN 20 H, Creatinine 0.67 L, Estim Creat Clear Calc 68.40, Est GFR (MDRD) Af Amer 151, Est GFR (MDRD) Non-Af 124, BUN/Creatinine Ratio 29.7 H, Glucose 103, Calcium 8.3 L, Total Bilirubin 0.50, AST 49 H, ALT 50, Alkaline Phosphatase 49, Total Protein 6.1 L, Albumin 2.0 L, Globulin 4.1, Albumin/Globulin Ratio 0.5 L Micro: Microbiology 08/03/21 18:00 Blood Culture (Wb) - Anticubital Left Blood Culture - Preliminary No growth in 48 hours. 08/03/21 20:20 Blood Culture (Wb) - Right Hand Blood Culture - Preliminary No growth in 48 hours. 08/03/21 01:00 Sputum, Expectorated/Coughed Gram Stain - Final 08/03/21 01:00 Sputum, Expectorated/Coughed Respiratory Culture - Final Mixed normal respiratory christina. No Streptococcus pneumoniae, beta-hemolytic Streptococcus or Staphylococcus aureus isolated. 08/03/21 13:33 Urine, Clean Catch Legionella Antigen - Final 08/03/21 13:33 Urine, Clean Catch Streptococcus pneumoniae Antigen (M - Final Physical Exam Narrative Physical exam: General: Alert, Oriented x3, Cooperative, no apparent distress, appears frail, on Airvo HEENT: Atraumatic Oral: Moist Mucosa Neck: Supple Lungs: Diminished to auscultation Cardiovascular: HS I+II, regular, no murmurs Abdomen: Bowel Sounds Present, Soft, Non Tender Extremities: No edema Assessment & Plan Assessment/Plan (1) Severe malnutrition: (2) Hypokalemia: (3) Acute asthma exacerbation: QUALIFIERS: Asthma severity: mild Asthma persistence: intermittent Qualified Code(s): J45.21 - Mild intermittent asthma with (acute) exacerbation (4) Pneumonia due to COVID-19 virus: (5) Acute respiratory failure with hypoxia: PLAN: 1. Acute hypoxic respiratory failure secondary to Acute COVID-19 pneumonia, remains tenous Remains on Airvo Patient is unvaccinated; presented with 8-day history of fever, chills, shortness of breath. Tested positive for Covid on 07/28 CXR and CTA of the chest done in outside hospital showed bilateral infiltrates, negative for acute PE Continue on baricitinib, dexamethasone, remdesivir 2. Acute asthma exacerbation, improved, management as in #1 3. Hypokalemia, resolved 4. Hypertension, continue on metoprolol and losartan Charges/Coding Visit Charges Inpatient E&M: 44651 Subs Hosp L3
[2021-08-07] MEDS: MELATONIN 10 MG TABLET PO (21:23)
[2021-08-08] VITALS (34 sets, daily range): BP systolic 97–164; BP diastolic 52–85; PULSE 67–107; RESP 12–35; TEMP 36.4–37.1; O2SAT 85–97
[2021-08-08 04:15] LABS: ALB/GLOB Ratio 0.5 RATIO (0.9-2.4); AST(SGOT) 43 U/L (15-37); Alanine Aminotransfer ALT/SGPT 54 U/L (16-61); Albumin, Serum 1.9 g/dL (3.2-5.0); Alkaline Phosphatase 50 U/L (45-117); Anion Gap 8 (5-15); BUN 16 mg/dL (7-18); BUN/Creat Ratio 30.8 RATIO (10-20); Calcium,Total 8.1 mg/dL (8.5-10.1); Chloride 102 mmol/L (98-107); Creatinine, Serum 0.52 mg/dL (0.70-1.30); EST Glomerular Filtration Rate 168 mL/min (>60); Est Glom Filt Rate - Afr Amer 203 mL/min (>60); Globulin 4.1 g/dL (2.2-4.2); Glucose 90 mg/dL (74-106); Magnesium 2.2 mg/dL (1.6-2.6); Potassium 3.5 mmol/L (3.5-5.1); Sodium Level 137 mmol/L (136-145)
[2021-08-08 04:18] LABS: Absolute Neutrophil Count 11.4 X10^3/uL (2.0-7.7); Basophil# 0.04 X10^3/uL; Basophil% 0.3 % (0-1); Eosinophil# 0.01 X10^3/uL; Eosinophils% 0.1 % (0-5); Hematocrit 39.9 % (40-54); Hemoglobin 13.5 g/dL (13.0-16.5); Lymphocyte % 4.7 % (19-41); Mean Corp Hgb Conc 33.8 g/dL (32-36); Mean Corpuscular Hgb 28.2 pg (27.0-32.0); Mean Corpuscular Volume 83.3 fL (80-94); Mean Platelet Vol. 9.6 fl (6.2-12.0); Monocyte# 0.27 X10^3/uL; Monocyte% 2.1 % (0-10); NRBC Flagged by Analyzer 0 % (0-5); Neutrophil # 11.39 X10^3/uL (2.7-7.7); Neutrophil % 88.6 % (47-70); POSITIVE DIFFERENTIAL YES; Platelet Count 284 K/mm3 (150-450); RBC Distribution Width CV 13.2 % (11.6-14.6); RBC Distribution Width SD 39.8 fl (35.1-43.9); Red Blood Count 4.79 M/mm3 (4.6-6.2); White Blood Count 12.9 K/mm3 (4.4-11.0)
[2021-08-08 04:22] LABS: Differential Indicated SCAN CRITERIA MET
[2021-08-08 04:53] LABS: Phenytoin (Dilantin) Level < 0.4 mL (10.0-20.0)
[2021-08-08 04:55] LABS: Differential Comment SCANNED
[2021-08-08] MEDS: Ipratropium/Albuterol Sulfate 3 ML AMPUL.NEB INHALATION ×2 (07:11→18:54)
--- NOTE | 2021-08-08 07:22 | PCM.PN.INT ---
Assessment & Plan Assessment/Plan (1) Acute respiratory failure with hypoxia: (2) Pneumonia due to COVID-19 virus: PLAN: RECOMMENDATIONS: 1. Continue to wean FiO2 to maintain oxygen saturations at or above 90%. 2. Completed Remdesivir. Continue Decadron (08/12/21) and baricitinib (08/17/21) 3. Increase activity as tolerated. Encourage prone positioning, Acapella and incentive spirometer as tolerated 4. Continue prophylactic Lovenox. 5. Diuretics, as needed, to maintain euvolemic state. Diuretic challenge today IMPRESSIONS: 1. Acute hypoxemic respiratory failure secondary to COVID-19 pneumonia The patient initially presented to the hospital with worsening shortness of breath and hypoxemia. Given that he was within 10 days of symptom onset, the patient was initiated on remdesivir. He will also be continued on Decadron to complete 10-day treatment course. The patient's respiratory status is still quite tenuous and he has been requiring a combination of AVAPS and heated high flow oxygen to maintain saturations. Continue to wean FiO2 to maintain saturations at or above 90%. Awake prone positioning was encouraged. CTA showed no evidence for PE. Completed Remdesivir. Baricitinib and Decadron courses have been ordered. We will continue to use diuretics to facilitate euvolemia. Challenge today. Potassium will also be supplemented. Despite aggressive measures, cannot exclude need for intubation, so patient should remain in the intensive care unit. 2. Obesity/hypertension/self-reported asthma/prior CVA Complicates care, management, recovery and prognosis. Continue home medications as indicated. The patient is okay with intubation if needed. Subjective Subjective Patient did okay overnight. Patient continues to require high Airvo to maintain saturations. Patient did prone overnight and was wearing BiPAP. Patient continues to report a cough with no change in color, consistency or frequency. Patient is reporting some chest discomfort that he associates with coughing. Objective Data Objective Data Vital Signs: Vital Signs Temp Pulse Resp BP Pulse Ox 37.1 C 101 H 27 H 135/58 H 93 08/08/21 04:00 08/08/21 07:12 08/08/21 07:12 08/08/21 07:00 08/08/21 07:12 Oxygen Flow Rate (L/min) 60 Oxygen Delivery Method Airvo Weight: 85.3 kg Body Mass Index (BMI) 30.4 Intake & Output: Intake and Output for Last 24 Hours 08/06/21 08/07/21 08/08/21 23:59 23:59 23:59 Intake Total 370 / 370 2550 / 2550 0 / 0 Output Total 1755 / 1755 1200 / 1200 250 / 250 Balance -1385 / -1385 1350 / 1350 -250 / -250 Medical Nutrition Assessment Dietitian: Malnutrition Criteria Met Start: 08/03/21 13:46 Freq: Status: Active Protocol: Document 08/06/21 12:05 YAEL (Rec: 08/06/21 12:05 [facility] [id number]) Nutrition Malnutrition Evidence of Malnutrition Exists Yes Malnutrition (severe): Acute Illness/Injury Evidenced By Suboptimal Energy Intake ( Severe),Weight Loss (Severe) Clinical Problem Acute Disease or Injury Related Malnutrition Etiology severe, acute malnutrition r/t inadequate energy intake d/t COVID-19 illness Signs/Symptoms as evidenced by unintentional wt loss of 5#/2.4% x 9 days, estimated PO intake meeting < 50% of estimated nutritional needs >1 week Status Active Problem Recommendation Dietitian Recommendations/Changes Rec as pt medically able advance to Regular diet, Will provide 8 oz ensure clear w/ meals for additional calories/protein if consumed. Lab / Micro Data Result Diagrams: 08/08/21 03:40 08/08/21 03:40 Labs: Laboratory Results - last 24 hr 08/07/21 07:40: Sodium 138, Potassium 3.6, Chloride 104, Carbon Dioxide 28.0, Anion Gap 6, BUN 20 H, Creatinine 0.67 L, Estim Creat Clear Calc 68.40, Est GFR (MDRD) Af Amer 151, Est GFR (MDRD) Non-Af 124, BUN/Creatinine Ratio 29.7 H, Glucose 103, Calcium 8.3 L, Total Bilirubin 0.50, AST 49 H, ALT 50, Alkaline Phosphatase 49, Total Protein 6.1 L, Albumin 2.0 L, Globulin 4.1, Albumin/Globulin Ratio 0.5 L 08/08/21 03:40: Phenytoin < 0.4 L 08/08/21 03:40: Sodium 137, Potassium 3.5, Chloride 102, Carbon Dioxide 27.0, Anion Gap 8, BUN 16, Creatinine 0.52 L, Estim Creat Clear Calc 68.40, Est GFR (MDRD) Af Amer 203, Est GFR (MDRD) Non-Af 168, BUN/Creatinine Ratio 30.8 H, Glucose 90, Calcium 8.1 L, Magnesium 2.2, Total Bilirubin 0.50, AST 43 H, ALT 54, Alkaline Phosphatase 50, Total Protein 6.0 L, Albumin 1.9 L, Globulin 4.1, Albumin/Globulin Ratio 0.5 L 08/08/21 03:40: WBC 12.9 H, RBC 4.79, Hgb 13.5, Hct 39.9 L, MCV 83.3, MCH 28.2, MCHC 33.8, RDW Std Deviation 39.8, RDW Coeff of Williams 13.2, Plt Count 284, MPV 9.6, Immature Gran % (Auto) 4.200 H, Neut % (Auto) 88.6 H, Lymph % (Auto) 4.7 L, [place] % (Auto) 2.1, Eos % (Auto) 0.1, Baso % (Auto) 0.3, Absolute Neuts (auto) 11.4 H, Absolute Lymphs (auto) 0.60 L, Nucleated RBC % 0, Differential Comment SCANNED Micro: Microbiology 08/03/21 18:00 Blood Culture (Wb) - Anticubital Left Blood Culture - Preliminary No growth in 48 hours. 08/03/21 20:20 Blood Culture (Wb) - Right Hand Blood Culture - Preliminary No growth in 48 hours. 08/03/21 01:00 Sputum, Expectorated/Coughed Gram Stain - Final 08/03/21 01:00 Sputum, Expectorated/Coughed Respiratory Culture - Final Mixed normal respiratory christina. No Streptococcus pneumoniae, beta-hemolytic Streptococcus or Staphylococcus aureus isolated. 08/03/21 13:33 Urine, Clean Catch Legionella Antigen - Final 08/03/21 13:33 Urine, Clean Catch Streptococcus pneumoniae Antigen (M - Final Physical Exam Const alert Constitutional Narrative: Sitting in the chair with mild conversational dyspnea General Appearance: cooperative Nutritional Appearance: obese HEENT normocephalic and head/scalp atraumatic Eyes PERRL, EOMs intact bilaterally and conjunctivae normal Neck supple General: trachea midline Chest inspection of chest normal Resp Resp Narrative: Becomes tachypneic with minimal movement Effort and Inspection: tachypneic; Negative for labored Auscultation: diminished lung sounds; Negative for rales, rhonchi or wheezes Cardio regular rate and regular rhythm GI normal to inspection, nondistended, normoactive bowel sounds Extremity no clubbing, cyanosis or edema Skin no rashes or lesions noted Neuro CN's II-XII intact bilaterally, moves all extremities and no focal motor deficits Psych cooperative and affect normal Charges/Coding Visit Charges Inpatient E&M: 08278 Subs Hosp L3
[2021-08-08] MEDS: Enoxaparin 30 MG/0.3 ML Syringe SC ×2 (08:02→21:41)
[2021-08-08] MEDS: Aspirin 325 MG Tablet PO (08:02)
[2021-08-08] MEDS: guaiFENesin 1,200 MG Tablet 1200 MG PO ×2 (08:03→21:42)
[2021-08-08] MEDS: Potassium Chloride Oral Tablet 20 MEQ 40 MEQ PO ×2 (08:03→16:03)
--- NOTE | 2021-08-08 08:04 | PN.HOSP_ITS ---
Subjective Subjective Follow-up on acute respiratory failure/acute COVID-19 pneumonia: Patient was seen and examined. Not much change. Denies any new complaints. He remains on Airvo. Objective Data Objective Data Vital Signs: Vital Signs Temp Pulse Resp BP Pulse Ox 98.7 F 101 H 27 H 135/58 H 93 08/08/21 04:00 08/08/21 07:12 08/08/21 07:12 08/08/21 07:00 08/08/21 07:12 Oxygen Flow Rate (L/min) 60 Oxygen Delivery Method Airvo Weight: 85.3 kg Body Mass Index (BMI) 30.4 Intake & Output: Intake and Output for Last 24 Hours 08/06/21 08/07/21 08/08/21 23:59 23:59 23:59 Intake Total 370 / 370 2550 / 2550 0 / 0 Output Total 1755 / 1755 1200 / 1200 250 / 250 Balance -1385 / -1385 1350 / 1350 -250 / -250 Medical Nutrition Assessment Dietitian: Malnutrition Criteria Met Start: 08/03/21 13:46 Freq: Status: Active Protocol: Document 08/06/21 12:05 YAEL (Rec: 08/06/21 12:05 [facility] [id number]) Nutrition Malnutrition Evidence of Malnutrition Exists Yes Malnutrition (severe): Acute Illness/Injury Evidenced By Suboptimal Energy Intake ( Severe),Weight Loss (Severe) Clinical Problem Acute Disease or Injury Related Malnutrition Etiology severe, acute malnutrition r/t inadequate energy intake d/t COVID-19 illness Signs/Symptoms as evidenced by unintentional wt loss of 5#/2.4% x 9 days, estimated PO intake meeting < 50% of estimated nutritional needs >1 week Status Active Problem Recommendation Dietitian Recommendations/Changes Rec as pt medically able advance to Regular diet, Will provide 8 oz ensure clear w/ meals for additional calories/protein if consumed. Lab / Micro Data Result Diagrams: 08/08/21 03:40 08/08/21 03:40 Labs: Laboratory Results - last 24 hr 08/07/21 07:40: Sodium 138, Potassium 3.6, Chloride 104, Carbon Dioxide 28.0, Anion Gap 6, BUN 20 H, Creatinine 0.67 L, Estim Creat Clear Calc 68.40, Est GFR (MDRD) Af Amer 151, Est GFR (MDRD) Non-Af 124, BUN/Creatinine Ratio 29.7 H, Glucose 103, Calcium 8.3 L, Total Bilirubin 0.50, AST 49 H, ALT 50, Alkaline Phosphatase 49, Total Protein 6.1 L, Albumin 2.0 L, Globulin 4.1, Albumin/Globulin Ratio 0.5 L 08/08/21 03:40: Phenytoin < 0.4 L 08/08/21 03:40: Sodium 137, Potassium 3.5, Chloride 102, Carbon Dioxide 27.0, Anion Gap 8, BUN 16, Creatinine 0.52 L, Estim Creat Clear Calc 68.40, Est GFR (MDRD) Af Amer 203, Est GFR (MDRD) Non-Af 168, BUN/Creatinine Ratio 30.8 H, Gluc ose 90, Calcium 8.1 L, Magnesium 2.2, Total Bilirubin 0.50, AST 43 H, ALT 54, Alkaline Phosphatase 50, Total Protein 6.0 L, Albumin 1.9 L, Globulin 4.1, Albumin/Globulin Ratio 0.5 L 08/08/21 03:40: WBC 12.9 H, RBC 4.79, Hgb 13.5, Hct 39.9 L, MCV 83.3, MCH 28.2, MCHC 33.8, RDW Std Deviation 39.8, RDW Coeff of Williams 13.2, Plt Count 284, MPV 9.6, Immature Gran % (Auto) 4.200 H, Neut % (Auto) 88.6 H, Lymph % (Auto) 4.7 L, [place] % (Auto) 2.1, Eos % (Auto) 0.1, Baso % (Auto) 0.3, Absolute Neuts (auto) 11.4 H, Absolute Lymphs (auto) 0.60 L, Nucleated RBC % 0, Differential Comment SCANNED Micro: Microbiology 08/03/21 18:00 Blood Culture (Wb) - Anticubital Left Blood Culture - Preliminary No growth in 48 hours. 08/03/21 20:20 Blood Culture (Wb) - Right Hand Blood Culture - Preliminary No growth in 48 hours. 08/03/21 01:00 Sputum, Expectorated/Coughed Gram Stain - Final 08/03/21 01:00 Sputum, Expectorated/Coughed Respiratory Culture - Final Mixed normal respiratory christina. No Streptococcus pneumoniae, beta-hemolytic Streptococcus or Staphylococcus aureus isolated. 08/03/21 13:33 Urine, Clean Catch Legionella Antigen - Final 08/03/21 13:33 Urine, Clean Catch Streptococcus pneumoniae Antigen (M - Final Physical Exam Narrative Physical exam: General: Alert, Oriented x3, Cooperative, no apparent distress, appears frail, on Airvo HEENT: Atraumatic Oral: Moist Mucosa Neck: Supple Lungs: Diminished to auscultation Cardiovascular: HS I+II, regular, no murmurs Abdomen: Bowel Sounds Present, Soft, Non Tender Extremities: No edema Assessment & Plan Assessment/Plan (1) Severe malnutrition: (2) Hypokalemia: (3) Acute asthma exacerbation: QUALIFIERS: Asthma persistence: intermittent Asthma severity: mild Qualified Code(s): J45.21 - Mild intermittent asthma with (acute) exacerbation (4) Pneumonia due to COVID-19 virus: (5) Acute respiratory failure with hypoxia: PLAN: 1. Acute hypoxic respiratory failure secondary to Acute COVID-19 pneumonia, remains tenous Remains on Airvo Patient is unvaccinated; presented with 8-day history of fever, chills, shortness of breath. Tested positive for Covid on 07/28 CXR and CTA of the chest done in outside hospital showed bilateral infiltrates, negative for acute PE Continue on baricitinib, dexamethasone, Completed remdesivir 2. Acute asthma exacerbation, improved, management as in #1 3. Hypokalemia, resolved 4. Hypertension, continue on metoprolol and losartan 5. Severe acute malnutrition r/t inadequate energy intake d/t COVID-19 illness as evidenced by unintentional wt loss of 5#/2.4% x 9 days, estimated PO intake meeting <50% of estimated nutritional needs >1 week Continue ensure clear w/ meals Charges/Coding Visit Charges Inpatient E&M: 96348 Subs Hosp L3
[2021-08-08] MEDS: dexAMETHasone 10 MG/ML Vial 6 MG IV (08:07)
[2021-08-08] MEDS: CHLORHEXIDINE GLUC 2% CLOTH 1 EACH TOWELETTE TOPICAL (08:07)
[2021-08-08] MEDS: Furosemide 40 MG/4 ML Vial IV (08:07)
[2021-08-08] MEDS: Losartan Potassium 25 MG Tablet PO (08:07)
[2021-08-08] MEDS: Metoprolol Tartrate 25 MG Tablet PO ×2 (08:07→21:42)
[2021-08-08] MEDS: MELATONIN 10 MG TABLET PO (21:42)
[2021-08-09] VITALS (34 sets, daily range): BP systolic 99–149; BP diastolic 54–80; PULSE 71–110; RESP 12–40; TEMP 36.2–36.9; O2SAT 85–98
[2021-08-09 04:45] LABS: ALB/GLOB Ratio 0.4 RATIO (0.9-2.4); AST(SGOT) 49 U/L (15-37); Alanine Aminotransfer ALT/SGPT 71 U/L (16-61); Albumin, Serum 1.9 g/dL (3.2-5.0); Alkaline Phosphatase 54 U/L (45-117); Anion Gap 4 (5-15); BUN 16 mg/dL (7-18); BUN/Creat Ratio 22.9 RATIO (10-20); Calcium,Total 8.4 mg/dL (8.5-10.1); Chloride 105 mmol/L (98-107); EST Glomerular Filtration Rate 120 mL/min (>60); Est Glom Filt Rate - Afr Amer 145 mL/min (>60); Globulin 4.4 g/dL (2.2-4.2); Glucose 97 mg/dL (74-106); Potassium 4.4 mmol/L (3.5-5.1); Protein, Total 6.3 g/dL (6.4-8.2); Sodium Level 137 mmol/L (136-145)
[2021-08-09] MEDS: Ipratropium/Albuterol Sulfate 3 ML AMPUL.NEB INHALATION ×3 (06:04→19:38)
--- NOTE | 2021-08-09 08:21 | PCM.PN.INT ---
Assessment & Plan Assessment/Plan (1) Acute respiratory failure with hypoxia: (2) Pneumonia due to COVID-19 virus: PLAN: RECOMMENDATIONS: 1. Continue to wean FiO2 to maintain oxygen saturations at or above 90%. 2. Completed Remdesivir. Continue Decadron (08/12/21) and baricitinib (08/17/21) 3. Increase activity as tolerated. Encourage prone positioning, Acapella and incentive spirometer as tolerated 4. Continue prophylactic Lovenox. 5. Diuretics, as needed, to maintain euvolemic state. 6. BiPAP breaks for pulmonary toileting. Cannot exclude intubation later today IMPRESSIONS: 1. Acute hypoxemic respiratory failure secondary to COVID-19 pneumonia The patient initially presented to the hospital with worsening shortness of breath and hypoxemia. Given that he was within 10 days of symptom onset, the patient was initiated on remdesivir. He will also be continued on Decadron to complete 10-day treatment course. The patient's respiratory status is still quite tenuous and he has been requiring a combination of AVAPS and heated high flow oxygen to maintain saturations. Continue to wean FiO2 to maintain saturations at or above 90%. Awake prone positioning was encouraged. CTA showed no evidence for PE. Completed Remdesivir. Baricitinib and Decadron courses have been ordered. We will continue to use diuretics to facilitate euvolemia. Challenge today. Potassium will also be supplemented. Patient continues to have marginal saturations. If unable to respond to conservative measures for pulmonary toileting, anticipate intubation in the next 24 hours. 2. Obesity/hypertension/self-reported asthma/prior CVA Complicates care, management, recovery and prognosis. Continue home medications as indicated. The patient is okay with intubation if needed. TIME: 33 minutes critical care time spent addressing patient's acute hypoxic respiratory failure, review of CODE STATUS, review of data and collaboration with care team Subjective Subjective Patient with significant difficulties overnight. Patient became hypoxic requiring 100% BiPAP. Patient was not able to tolerate Airvo this morning. Did attempt to take patient off of BiPAP for short period of time to help with pulmonary toileting. Patient was able to improve saturations from 66% to 85% with coughing on Airvo. Saturations did improve after reinitiation of BiPAP therapy. Patient does state that he is willing to be intubated if it is necessary. Objective Data Objective Data Vital Signs: Vital Signs Temp Pulse Resp BP Pulse Ox 36.4 C L 99 32 H 131/70 H 94 08/09/21 04:00 08/09/21 07:00 08/09/21 07:00 08/09/21 07:00 08/09/21 07:00 Oxygen Flow Rate (L/min) 60 Oxygen Delivery Method Bi-pap Weight: 85.3 kg Body Mass Index (BMI) 30.4 Intake & Output: Intake and Output for Last 24 Hours 08/07/21 08/08/21 08/09/21 23:59 23:59 23:59 Intake Total 2550 / 2550 1080 / 1080 240 / 240 Output Total 1200 / 1200 1875 / 1875 525 / 525 Balance 1350 / 1350 -795 / -795 -285 / -285 Medical Nutrition Assessment Dietitian: Malnutrition Criteria Met Start: 08/03/21 13:46 Freq: Status: Active Protocol: Document 08/06/21 12:05 YAEL (Rec: 08/06/21 12:05 [facility] [id number]) Nutrition Malnutrition Evidence of Malnutrition Exists Yes Malnutrition (severe): Acute Illness/Injury Evidenced By Suboptimal Energy Intake ( Severe),Weight Loss (Severe) Clinical Problem Acute Disease or Injury Related Malnutrition Etiology severe, acute malnutrition r/t inadequate energy intake d/t COVID-19 illness Signs/Symptoms as evidenced by unintentional wt loss of 5#/2.4% x 9 days, estimated PO intake meeting < 50% of estimated nutritional needs >1 week Status Active Problem Recommendation Dietitian Recommendations/Changes Rec as pt medically able advance to Regular diet, Will provide 8 oz ensure clear w/ meals for additional calories/protein if consumed. Lab / Micro Data Result Diagrams: 08/08/21 03:40 08/09/21 04:30 Labs: Laboratory Results - last 24 hr 08/09/21 04:30: Sodium 137, Potassium 4.4, Chloride 105, Carbon Dioxide 28.0, Anion Gap 4 L, BUN 16, Creatinine 0.70, Estim Creat Clear Calc 68.40, Est GFR (MDRD) Af Amer 145, Est GFR (MDRD) Non-Af 120, BUN/Creatinine Ratio 22.9 H, Glucose 97, Calcium 8.4 L, Total Bilirubin 0.50, AST 49 H, ALT 71 H, Alkaline Phosphatase 54, Total Protein 6.3 L, Albumin 1.9 L, Globulin 4.4 H, Albumin/Globulin Ratio 0.4 L Micro: Microbiology 08/03/21 18:00 Blood Culture (Wb) - Anticubital Left Blood Culture - Final No growth in 5 days. 08/03/21 20:20 Blood Culture (Wb) - Right Hand Blood Culture - Final No growth in 5 days. 08/03/21 01:00 Sputum, Expectorated/Coughed Gram Stain - Final 08/03/21 01:00 Sputum, Expectorated/Coughed Respiratory Culture - Final Mixed normal respiratory christina. No Streptococcus pneumoniae, beta-hemolytic Streptococcus or Staphylococcus aureus isolated. 08/03/21 13:33 Urine, Clean Catch Legionella Antigen - Final 08/03/21 13:33 Urine, Clean Catch Streptococcus pneumoniae Antigen (M - Final Physical Exam Const alert Constitutional Narrative: Sitting in the chair on BiPAP General Appearance: cooperative Nutritional Appearance: obese HEENT normocephalic and head/scalp atraumatic Eyes PERRL, EOMs intact bilaterally and conjunctivae normal Neck supple General: trachea midline Chest inspection of chest normal Resp Resp Narrative: Becomes tachypneic with minimal movement Effort and Inspection: tachypneic; Negative for labored Auscultation: diminished lung sounds; Negative for rales, rhonchi or wheezes Cardio regular rate and regular rhythm GI normal to inspection, nondistended, normoactive bowel sounds Extremity no clubbing, cyanosis or edema Skin no rashes or lesions noted Neuro CN's II-XII intact bilaterally, moves all extremities and no focal motor deficits Psych cooperative and affect normal Charges/Coding Procedures Hospitalists Procedures: 55035 Critial Care 1st Hr
--- NOTE | 2021-08-09 10:37 | PCM.PN.ID ---
Physical Exam Narrative Feeling ok, no fever, stable breathing, no n/v/d. Const alert and no apparent distress General Appearance: cooperative Resp clear to auscultation bilaterally Auscultation: diminished lung sounds Cardio regular rate and regular rhythm GI normal to inspection, nondistended, normoactive bowel sounds Skin no rashes or lesions noted ID ID: Route of nutrition/ use of supplements: [] Nutritional Intake: [] IV Site: [] Russell Catheter: [] Assessment & Plan Assessment/Plan (1) Pneumonia due to COVID-19 virus: PLAN: Sx started 07/25. Unvaccinated. Isolate for 20 days, stop date 08/13/21. Recommend vaccine once out of iso. On dex, baricitinib, and completed remdesivir. Will follow (2) Acute respiratory failure with hypoxia:
[2021-08-09] MEDS: guaiFENesin 1,200 MG Tablet 1200 MG PO ×2 (10:53→21:59)
[2021-08-09] MEDS: Aspirin 325 MG Tablet PO (10:53)
[2021-08-09] MEDS: Losartan Potassium 25 MG Tablet PO (10:53)
[2021-08-09] MEDS: CHLORHEXIDINE GLUC 2% CLOTH 1 EACH TOWELETTE TOPICAL (10:53)
[2021-08-09] MEDS: Metoprolol Tartrate 25 MG Tablet PO ×2 (10:53→21:59)
[2021-08-09] MEDS: Enoxaparin 30 MG/0.3 ML Syringe SC ×2 (10:54→21:59)
[2021-08-09] MEDS: dexAMETHasone 10 MG/ML Vial 6 MG IV (10:54)
--- NOTE | 2021-08-09 11:05 | CASEMGMT ---
Social Work SW attended ICU rounds. Pt is currently on Bipap with discussion of possible intubation. Nursing reports pt is concerned about . After rounds, phone call placed to pt to offer support. Pt stating she is improving from Covid but still in isolation. She does have a followup telehealth appointment tomorrow with PCP. Mrs. Betancourt states that she was able to speak with pt this morning at 0500 when he called her. Pt stating she has support system from family, friends and neighbors and denies needs at this time. Emotional support provided. Pt states she has received medical updates from nursing and is appreciative of that. SW will remain available for further needs. RAND Springer
--- NOTE | 2021-08-09 13:04 | PCM.PN.HOSP ---
Subjective Subjective Follow-up on acute respiratory failure/acute COVID-19 pneumonia: Patient was seen and examined. Patient oxygen requirements have gotten worse. He is currently on AVAPS. Objective Data Objective Data Vital Signs: Vital Signs Temp Pulse Resp BP Pulse Ox 98.5 F 78 27 H 107/54 L 89 08/09/21 12:00 08/09/21 12:00 08/09/21 12:00 08/09/21 12:00 08/09/21 12:00 Oxygen Flow Rate (L/min) 60 Oxygen Delivery Method Bi-pap Weight: 85.3 kg Body Mass Index (BMI) 30.4 Intake & Output: Intake and Output for Last 24 Hours 08/07/21 08/08/21 08/09/21 23:59 23:59 23:59 Intake Total 2550 / 2550 1080 / 1080 360 / 360 Output Total 1200 / 1200 1875 / 1875 700 / 700 Balance 1350 / 1350 -795 / -795 -340 / -340 Medical Nutrition Assessment Dietitian: Malnutrition Criteria Met Start: 08/03/21 13:46 Freq: Status: Active Protocol: Document 08/06/21 12:05 YAEL (Rec: 08/06/21 12:05 [facility] [id number]) Nutrition Malnutrition Evidence of Malnutrition Exists Yes Malnutrition (severe): Acute Illness/Injury Evidenced By Suboptimal Energy Intake ( Severe),Weight Loss (Severe) Clinical Problem Acute Disease or Injury Related Malnutrition Etiology severe, acute malnutrition r/t inadequate energy intake d/t COVID-19 illness Signs/Symptoms as evidenced by unintentional wt loss of 5#/2.4% x 9 days, estimated PO intake meeting < 50% of estimated nutritional needs >1 week Status Active Problem Recommendation Dietitian Recommendations/Changes Rec as pt medically able advance to Regular diet, Will provide 8 oz ensure clear w/ meals for additional calories/protein if consumed. Lab / Micro Data Result Diagrams: 08/08/21 03:40 08/09/21 04:30 Labs: Laboratory Results - last 24 hr 08/09/21 04:30: Sodium 137, Potassium 4.4, Chloride 105, Carbon Dioxide 28.0, Anion Gap 4 L, BUN 16, Creatinine 0.70, Estim Creat Clear Calc 68.40, Est GFR (MDRD) Af Amer 145, Est GFR (MDRD) Non-Af 120, BUN/Creatinine Ratio 22.9 H, Glucose 97, Calcium 8.4 L, Total Bilirubin 0.50, AST 49 H, ALT 71 H, Alkaline Phosphatase 54, Total Protein 6.3 L, Albumin 1.9 L, Globulin 4.4 H, Albumin/Globulin Ratio 0.4 L Micro: Microbiology 08/03/21 18:00 Blood Culture (Wb) - Anticubital Left Blood Culture - Final No growth in 5 days. 08/03/21 20:20 Blood Culture (Wb) - Right Hand Blood Culture - Final No growth in 5 days. 08/03/21 01:00 Sputum, Expectorated/Coughed Gram Stain - Final 08/03/21 01:00 Sputum, Expectorated/Coughed Respiratory Culture - Final Mixed normal respiratory christina. No Streptococcus pneumoniae, beta-hemolytic Streptococcus or Staphylococcus aureus isolated. 08/03/21 13:33 Urine, Clean Catch Legionella Antigen - Final 08/03/21 13:33 Urine, Clean Catch Streptococcus pneumoniae Antigen (M - Final Physical Exam Narrative Physical exam: General: Alert, Oriented x3, Cooperative, no apparent distress, appears frail, on AVAPS HEENT: Atraumatic Oral: Moist Mucosa Neck: Supple Lungs: Diminished to auscultation Cardiovascular: HS I+II, regular, no murmurs Abdomen: Bowel Sounds Present, Soft, Non Tender Extremities: No edema Assessment & Plan Assessment/Plan (1) Severe malnutrition: (2) Hypokalemia: (3) Acute asthma exacerbation: QUALIFIERS: Asthma severity: mild Asthma persistence: intermittent Qualified Code(s): J45.21 - Mild intermittent asthma with (acute) exacerbation (4) Pneumonia due to COVID-19 virus: (5) Acute respiratory failure with hypoxia: PLAN: 1. Acute hypoxic respiratory failure secondary to Acute COVID-19 pneumonia, remains tenous Currently on BiPAP/AVAPS Patient is unvaccinated; presented with 8-day history of fever, chills, shortness of breath. Tested positive for Covid on 07/28 CXR and CTA of the chest done in outside hospital showed bilateral infiltrates, negative for acute PE Continue on Baricitinib, dexamethasone, Completed remdesivir 2. Acute asthma exacerbation, improved, management as in #1 3. Hypokalemia, resolved 4. Hypertension, continue on metoprolol and losartan 5. Severe acute malnutrition r/t inadequate energy intake d/t COVID-19 illness as evidenced by unintentional wt loss of 5#/2.4% x 9 days, estimated PO intake meeting <50% of estimated nutritional needs >1 week Continue ensure clear w/ meals Charges/Coding Visit Charges Inpatient E&M: 61492 Subs Hosp L2
[2021-08-09] MEDS: MELATONIN 10 MG TABLET PO (21:59)
[2021-08-10] VITALS (42 sets, daily range): BP systolic 86–165; BP diastolic 47–96; PULSE 69–116; RESP 12–40; TEMP 36.4–37.2; O2SAT 85–98
[2021-08-10] MEDS: Ipratropium/Albuterol Sulfate 3 ML AMPUL.NEB INHALATION ×4 (01:57→19:21)
[2021-08-10 05:36] LABS: Hemoglobin 12.9 g/dL (13.0-16.5); Mean Corp Hgb Conc 33.1 g/dL (32-36); Mean Corpuscular Hgb 27.7 pg (27.0-32.0); Mean Corpuscular Volume 83.9 fL (80-94); Mean Platelet Vol. 9.6 fl (6.2-12.0); NRBC Flagged by Analyzer 0 % (0-5); POSITIVE DIFFERENTIAL YES; Platelet Count 347 K/mm3 (150-450); RBC Distribution Width CV 13.2 % (11.6-14.6); RBC Distribution Width SD 39.9 fl (35.1-43.9); Red Blood Count 4.65 M/mm3 (4.6-6.2); White Blood Count 12.5 K/mm3 (4.4-11.0)
[2021-08-10 05:38] LABS: Differential Indicated SCAN CRITERIA MET
[2021-08-10 05:54] LABS: ALB/GLOB Ratio 0.4 RATIO (0.9-2.4); AST(SGOT) 41 U/L (15-37); Alanine Aminotransfer ALT/SGPT 61 U/L (16-61); Albumin, Serum 1.8 g/dL (3.2-5.0); Alkaline Phosphatase 55 U/L (45-117); Anion Gap 8 (5-15); BUN 17 mg/dL (7-18); BUN/Creat Ratio 34.1 RATIO (10-20); Calcium,Total 8.1 mg/dL (8.5-10.1); Chloride 106 mmol/L (98-107); EST Glomerular Filtration Rate 176 mL/min (>60); Est Glom Filt Rate - Afr Amer 213 mL/min (>60); Globulin 4.6 g/dL (2.2-4.2); Glucose 89 mg/dL (74-106); Protein, Total 6.4 g/dL (6.4-8.2); Sodium Level 136 mmol/L (136-145)
[2021-08-10 06:45] LABS: Scan Smear per Review Criteria MANUAL DIFF; Total Cells Counted 100 (MANUAL DIFF)
[2021-08-10 06:48] LABS: Lymphocyte 6 % (19-41); Metamyelocyte 2 % (0-1); Monocyte 2 % (0-10); Myelocyte 2 % (0-0); Neutrophil-Band 1 % (0-5); Neutrophil-Segmented 86 % (47-70); Platelet Estimate ADEQUATE (ADEQ); Promyelocyte 1 % (0-0)
[2021-08-10 06:50] LABS: Absolute Lymphocyte Count 0.75 X10^3/uL (0.83-4.51); Absolute Neutrophil Count 10.9 X10^3/uL (2.0-7.7); Anisocytosis RARE; Lymphocyte # 0.75 X10^3/ul (0.83-4.51); Microcytosis RARE; Neutrophil # 10.87 X10^3/uL (2.7-7.7)
--- NOTE | 2021-08-10 07:11 | EKG12_ITS ---
Test Reason : CHEST HEAVINESS Blood Pressure : / mmHG Vent. Rate : 102 BPM Atrial Rate : 102 BPM P-R Int : 130 ms QRS Dur : 088 ms QT Int : 340 ms P-R-T Axes : 061 037 038 degrees QTc Int : 443 ms Sinus tachycardia Otherwise normal ECG No previous ECGs available Confirmed by PETER RONDON, SOLO ([id number]), writer editor MORENO WILLIAMSON ([id number]) on 08/14/2021 7:33:13 AM Referred By: Danis Jean Confirmed By:SOLO GREEN MD
[2021-08-10] MEDS: Furosemide 40 MG/4 ML Vial IV (08:39)
--- NOTE | 2021-08-10 09:51 | PN.HOSP_ITS ---
Subjective Subjective Follow-up on acute respiratory failure/acute COVID-19 pneumonia: Patient was seen and examined. Patient was intubated today 08/10. On mechanical ventilator, PEEP 10. Objective Data Objective Data Vital Signs: Vital Signs Temp Pulse Resp BP Pulse Ox 98.6 F 111 H 33 H 164/96 H 88 08/10/21 08:00 08/10/21 09:00 08/10/21 09:00 08/10/21 09:00 08/10/21 08:00 Oxygen Flow Rate (L/min) 60 Oxygen Delivery Method Bi-pap Weight: 82.4 kg Body Mass Index (BMI) 30.4 Intake & Output: Intake and Output for Last 24 Hours 08/08/21 08/09/21 08/10/21 23:59 23:59 23:59 Intake Total 1080 / 1080 600 / 600 Output Total 1875 / 1875 1300 / 1300 250 / 250 Balance -795 / -795 -700 / -700 -250 / -250 Medical Nutrition Assessment Dietitian: Malnutrition Criteria Met Start: 08/03/21 13:46 Freq: Status: Active Protocol: Document 08/06/21 12:05 YAEL (Rec: 08/06/21 12:05 [facility] [id number]) Nutrition Malnutrition Evidence of Malnutrition Exists Yes Malnutrition (severe): Acute Illness/Injury Evidenced By Suboptimal Energy Intake ( Severe),Weight Loss (Severe) Clinical Problem Acute Disease or Injury Related Malnutrition Etiology severe, acute malnutrition r/t inadequate energy intake d/t COVID-19 illness Signs/Symptoms as evidenced by unintentional wt loss of 5#/2.4% x 9 days, estimated PO intake meeting < 50% of estimated nutritional needs >1 week Status Active Problem Recommendation Dietitian Recommendations/Changes Rec as pt medically able advance to Regular diet, Will provide 8 oz ensure clear w/ meals for additional calories/protein if consumed. Lab / Micro Data Result Diagrams: 08/10/21 05:15 08/10/21 05:15 Labs: Laboratory Results - last 24 hr 08/10/21 05:15: Sodium 136, Potassium 4.0, Chloride 106, Carbon Dioxide 22.0, A nion Gap 8, BUN 17, Creatinine 0.50 L, Estim Creat Clear Calc 68.40, Est GFR (MDRD) Af Amer 213, Est GFR (MDRD) Non-Af 176, BUN/Creatinine Ratio 34.1 H, G lucose 89, Calcium 8.1 L, Total Bilirubin 0.60, AST 41 H, ALT 61, Alkaline Phosphatase 55, Total Protein 6.4, Albumin 1.8 L, Globulin 4.6 H, Albumin/Globulin Ratio 0.4 L 08/10/21 05:15: WBC 12.5 H, RBC 4.65, Hgb 12.9 L, Hct 39.0 L, MCV 83.9, MCH 27.7, MCHC 33.1, RDW Std Deviation 39.9, RDW Coeff of Williams 13.2, Plt Count 347, MPV 9.6, Immature Gran % (Auto) VOCATIONAL ED INSTRUCTOR, Neut % (Auto) VOCATIONAL ED INSTRUCTOR, Lymph % (Auto) VOCATIONAL ED INSTRUCTOR, [place] % (Auto) VOCATIONAL ED INSTRUCTOR, Eos % (Auto) VOCATIONAL ED INSTRUCTOR, Baso % (Auto) VOCATIONAL ED INSTRUCTOR, Absolute Neuts (auto) 10.9 H, Absolute Lymphs (auto) 0.75 L, Total Counted 100, Neutrophils % (Manual) 86 H, Band Neutrophils % 1, Lymphocytes % (Manual) 6 L, Monocytes % (Manual) 2, Metamyelocytes % 2 H, Myelocytes % 2 H, Promyelocytes % 1 H, Nucleated RBC % 0, Diff Path Review May foll, Platelet Estimate ADEQUATE, Anisocytosis RARE, Microcytosis RARE Micro: Microbiology 08/03/21 18:00 Blood Culture (Wb) - Anticubital Left Blood Culture - Final No growth in 5 days. 08/03/21 20:20 Blood Culture (Wb) - Right Hand Blood Culture - Final No growth in 5 days. 08/03/21 01:00 Sputum, Expectorated/Coughed Gram Stain - Final 08/03/21 01:00 Sputum, Expectorated/Coughed Respiratory Culture - Final Mixed normal respiratory christina. No Streptococcus pneumoniae, beta-hemolytic Streptococcus or Staphylococcus aureus isolated. 08/03/21 13:33 Urine, Clean Catch Legionella Antigen - Final 08/03/21 13:33 Urine, Clean Catch Streptococcus pneumoniae Antigen (M - Final Physical Exam Narrative Physical exam: General: Alert, Oriented x3, Cooperative, no apparent distress, appears frail, on AVAPS HEENT: Atraumatic Oral: Moist Mucosa Neck: Supple Lungs: Diminished to auscultation Cardiovascular: HS I+II, regular, no murmurs Abdomen: Bowel Sounds Present, Soft, Non Tender Extremities: No edema Assessment & Plan Assessment/Plan (1) Severe malnutrition: (2) Hypokalemia: (3) Acute asthma exacerbation: QUALIFIERS: Asthma severity: mild Asthma persistence: intermittent Qualified Code(s): J45.21 - Mild intermittent asthma with (acute) exacerbation (4) Pneumonia due to COVID-19 virus: (5) Acute respiratory failure with hypoxia: PLAN: 1. Acute hypoxic respiratory failure secondary to Acute COVID-19 pneumonia, Status post intubation, continue mechanical ventilator Patient is unvaccinated; presented with 8-day history of fever, chills, shortness of breath. Tested positive for Covid on 07/28 CXR and CTA of the chest done in outside hospital showed bilateral infiltrates, negative for acute PE Continue on Baricitinib, dexamethasone, Completed remdesivir 2. Acute asthma exacerbation, improved, management as in #1 3. Hypokalemia, resolved 4. Hypertension, continue on metoprolol and losartan 5. Severe acute malnutrition r/t inadequate energy intake d/t COVID-19 illness as evidenced by unintentional wt loss of 5#/2.4% x 9 days, estimated PO intake meeting <50% of estimated nutritional needs >1 week Patient will be receiving tube feeds Charges/Coding Visit Charges Inpatient E&M: 69196 Subs Hosp L3
[2021-08-10] MEDS: dexAMETHasone 10 MG/ML Vial 6 MG IV (10:47)
[2021-08-10] MEDS: Metoprolol Tartrate 25 MG Tablet PO (10:47)
[2021-08-10] MEDS: Aspirin 325 MG Tablet PO (10:47)
[2021-08-10] MEDS: guaiFENesin 1,200 MG Tablet 1200 MG PO (10:47)
[2021-08-10] MEDS: 0.9% Saline Lock 10 ML Syringe IV ×4 (10:48→20:48)
[2021-08-10] MEDS: Enoxaparin 30 MG/0.3 ML Syringe SC ×2 (10:48→20:44)
[2021-08-10] MEDS: CHLORHEXIDINE GLUC 2% CLOTH 1 EACH TOWELETTE TOPICAL (11:06)
--- NOTE | 2021-08-10 11:09 | NURSING ---
Removed bipap and placed on AIRVO 60L/94% to take sip of water with meds. Sats dropped to mid 70s and did not recover. Bipap reapplied and increased fio2 to 100%
--- NOTE | 2021-08-10 12:22 | PCM.PN.INT ---
Assessment & Plan Assessment/Plan (1) Acute respiratory failure with hypoxia: (2) Pneumonia due to COVID-19 virus: PLAN: RECOMMENDATIONS: 1. Continue to wean FiO2 to maintain oxygen saturations at or above 90%. 2. Completed Remdesivir. Continue Decadron (08/12/21) and baricitinib (08/17/21) 3. Increase activity as tolerated. Encourage prone positioning, Acapella and incentive spirometer as tolerated 4. Continue prophylactic Lovenox. 5. Diuretics, as needed, to maintain euvolemic state. 6. Controlled intubation later today. Spontaneous breathing and awakening trials per protocol IMPRESSIONS: 1. Acute hypoxemic respiratory failure secondary to COVID-19 pneumonia The patient initially presented to the hospital with worsening shortness of breath and hypoxemia. Given that he was within 10 days of symptom onset, the patient was initiated on remdesivir. He will also be continued on Decadron to complete 10-day treatment course. The patient's respiratory status is still quite tenuous and he has been requiring a combination of AVAPS and heated high flow oxygen to maintain saturations. Continue to wean FiO2 to maintain saturations at or above 90%. Awake prone positioning was encouraged. CTA showed no evidence for PE. Completed Remdesivir. Baricitinib and Decadron courses have been ordered. We will continue to use diuretics to facilitate euvolemia. Challenge today. Potassium will also be supplemented as indicated. After review the risks, benefits and alternatives, patient has agreed to intubation to help with nutritional status and pulmonary toileting. Patient has asked to FaceTime his prior to any interventions. 2. Obesity/hypertension/self-reported asthma/prior CVA Complicates care, management, recovery and prognosis. Continue home medications as indicated. The patient is okay with intubation if needed. Addendum 4 PM: Intubation Indication: Hypoxia Consent was obtained from: Patient The patient was placed in the appropriate sniffing position. Preoxygenated sedation via BiPAP was provided for a minimum of 3 minutes. The patient had continuous cardiac as well as pulse oximetry monitoring during the procedure. Procedure sedation was provided by the administration of 100 of succinylcholine and 20 mg of etomidate. Video laryngoscopy was then performed using a number 4 blade, which revealed a grade 1 view. A 8 mm endotracheal tube was visualized advancing between the cords to the level of 25 cm at the lip. The stylette was then removed and discarded. Tube placement was confirmed by fogging in the tube along with equal and bilateral breath sounds. Colorimetric change was visualized on the CO2 meter. The cuff was then inflated and the tube secured using a commercially available device. A good pulse oximetry waveform was seen on the monitor throughout the procedure. A portable chest x-ray has been ordered to confirm appropriate placement. The patient tolerated the procedure well. TIME: 60 minutes critical care time spent addressing patient's acute hypoxic respiratory failure, review of CODE STATUS, review of data and collaboration with care team Subjective Subjective Patient did okay overnight. Patient was unable to tolerate any significant time off of his BiPAP therapy. Patient reports a sensation of secretions caught in my chest. Patient is complaining of a dry mouth and cough. On my evaluation this morning, patient had reported acute onset of a heaviness on the right side of his chest. An EKG was obtained showing no significant changes. Patient states that resolved spontaneously. Patient did not report any radiation. Objective Data Objective Data Vital Signs: Vital Signs Temp Pulse Resp BP Pulse Ox 37.0 C 90 34 H 127/66 H 88 08/10/21 08:00 08/10/21 11:53 08/10/21 11:00 08/10/21 11:00 08/10/21 11:00 Oxygen Flow Rate (L/min) 60 Oxygen Delivery Method Bi-pap Weight: 82.4 kg Body Mass Index (BMI) 30.4 Intake & Output: Intake and Output for Last 24 Hours 08/08/21 08/09/21 08/10/21 23:59 23:59 23:59 Intake Total 1080 / 1080 600 / 600 Output Total 1875 / 1875 1300 / 1300 1150 / 1150 Balance -795 / -795 -700 / -700 -1150 / -1150 Medical Nutrition Assessment Dietitian: Malnutrition Criteria Met Start: 08/03/21 13:46 Freq: Status: Active Protocol: Document 08/10/21 11:58 RMA (Rec: 08/10/21 11:58 RMA [id number]) Nutrition Malnutrition Evidence of Malnutrition Exists Yes Malnutrition (severe): Acute Illness/Injury Evidenced By Suboptimal Energy Intake ( Severe),Weight Loss (Severe) Clinical Problem Acute Disease or Injury Related Malnutrition Etiology severe, acute malnutrition r/t inadequate energy intake d/t COVID-19 illness Signs/Symptoms as evidenced by unintentional wt loss of 5#/2.4% x 9 days, estimated PO intake meeting < 50% of estimated nutritional needs >1 week Status Active Problem Recommendation Dietitian Recommendations/Changes continue regular diet if tolerated; will continue ensure milkshake w/ lunch and dinner for additional calories /protein if consumed as appropriate. If pt requires enteral nutrition support, recommend start TF with Vital HP @ 20ml/ hr and increase by 10ml/hr Q 6 -8 hours as tolerated to goal rate 50ml/hr. Water flush 75mL Q 4 hours to provide 1200kcal , 105 gm pro and 1603ml free water per day. PO vs. TF support if intubation required. Lab / Micro Data Result Diagrams: 08/10/21 05:15 08/10/21 05:15 Labs: Laboratory Results - last 24 hr 08/10/21 05:15: Sodium 136, Potassium 4.0, Chloride 106, Carbon Dioxide 22.0, Anion Gap 8, BUN 17, Creatinine 0.50 L, Estim Creat Clear Calc 68.40, Est GFR (MDRD) Af Amer 213, Est GFR (MDRD) Non-Af 176, BUN/Creatinine Ratio 34.1 H, Glucose 89, Calcium 8.1 L, Total Bilirubin 0.60, AST 41 H, ALT 61, Alkaline Phosphatase 55, Total Protein 6.4, Albumin 1.8 L, Globulin 4.6 H, Albumin/Globulin Ratio 0.4 L 08/10/21 05:15: WBC 12.5 H, RBC 4.65, Hgb 12.9 L, Hct 39.0 L, MCV 83.9, MCH 27.7, MCHC 33.1, RDW Std Deviation 39.9, RDW Coeff of Williams 13.2, Plt Count 347, MPV 9.6, Immature Gran % (Auto) HUMAN RESOURCES OFFICE ASSISTANT, Neut % (Auto) HUMAN RESOURCES OFFICE ASSISTANT, Lymph % (Auto) HUMAN RESOURCES OFFICE ASSISTANT, [place] % (Auto) HUMAN RESOURCES OFFICE ASSISTANT, Eos % (Auto) HUMAN RESOURCES OFFICE ASSISTANT, Baso % (Auto) HUMAN RESOURCES OFFICE ASSISTANT, Absolute Neuts (auto) 10.9 H, Absolute Lymphs (auto) 0.75 L, Total Counted 100, Neutrophils % (Manual) 86 H, Band Neutrophils % 1, Lymphocytes % (Manual) 6 L, Monocytes % (Manual) 2, Metamyelocytes % 2 H, Myelocytes % 2 H, Promyelocytes % 1 H, Nucleated RBC % 0, Diff Path Review May foll, Platelet Estimate ADEQUATE, Anisocytosis RARE, Microcytosis RARE Micro: Microbiology 08/03/21 18:00 Blood Culture (Wb) - Anticubital Left Blood Culture - Final No growth in 5 days. 08/03/21 20:20 Blood Culture (Wb) - Right Hand Blood Culture - Final No growth in 5 days. 08/03/21 01:00 Sputum, Expectorated/Coughed Gram Stain - Final 08/03/21 01:00 Sputum, Expectorated/Coughed Respiratory Culture - Final Mixed normal respiratory christina. No Streptococcus pneumoniae, beta-hemolytic Streptococcus or Staphylococcus aureus isolated. 08/03/21 13:33 Urine, Clean Catch Legionella Antigen - Final 08/03/21 13:33 Urine, Clean Catch Streptococcus pneumoniae Antigen (M - Final Physical Exam Const alert Constitutional Narrative: Sitting in the chair on BiPAP General Appearance: cooperative Nutritional Appearance: obese HEENT normocephalic and head/scalp atraumatic Eyes PERRL, EOMs intact bilaterally and conjunctivae normal Neck supple General: trachea midline Chest inspection of chest normal Resp Resp Narrative: Becomes tachypneic with minimal movement Effort and Inspection: tachypneic; Negative for labored Auscultation: diminished lung sounds; Negative for rales, rhonchi or wheezes Cardio regular rate and regular rhythm GI normal to inspection, nondistended, normoactive bowel sounds Extremity no clubbing, cyanosis or edema Skin no rashes or lesions noted Neuro CN's II-XII intact bilaterally, moves all extremities and no focal motor deficits Psych cooperative and affect normal Charges/Coding Procedures Hospitalists Procedures: [id number] Critial Care 1st Hr
--- NOTE | 2021-08-10 15:16 | NURSING ---
Dr. Kebede at bedside preparing to intubate. 1518-20mg Etomidate given by Dr. Kebede 1519-100mg succs given 1520-#8EOT inserted, 25cm at lip, + color change, + b/l breath sounds, OGT inserted by Dr. Kebede w/ glidescope. 1522-Propofol and Fentanyl drips started 1525-Core temp mendoza inserted 1530-Radiology called for stat CXR
[2021-08-10] MEDS: Etomidate 20 MG/10 ML Vial IV (15:18)
[2021-08-10] MEDS: Propofol 10MG/Ml 1,000 MG/100 ML Bottle 4.9 MG CONT INF (15:22)
--- NOTE | 2021-08-10 15:44 | RAD_ITS ---
History: OGT placement Abdomen: Findings: AP supine view of the abdomen demonstrates tip of the endogastric tube to extend to the level of the pylorus. Right upper quadrant surgical clips consistent with cholecystectomy. No organomegaly. No acute osseous abnormality. Bilateral airspace opacification of the lungs again seen. IMPRESSION: Tip of the endogastric tube at the level of the pylorus.. at 1700 Reported and signed by: Charles Chin MD Electronically Signed: Charles Chin MD at 16:58 EST Tel , Service support , RAD/Abdomen Single View (Portable)
--- NOTE | 2021-08-10 15:44 | RAD_ITS ---
History: Intubation, ETT and OGT placement EXAMINATION/TECHNIQUE: XR Chest 1 View: Portable COMPARISON: None FINDINGS: LINES/DEVICES: Tip of the endotracheal tube is 3.5 cm above the li. Endogastric tube extends beyond the esophagogastric junction. LUNGS: Airspace opacification noted throughout both lungs somewhat sparing the left upper lobe consistent with pneumonia or atypical pulmonary edema. No pneumothorax. MEDIASTINUM AND CARDIOVASCULAR STRUCTURES: Cardiac silhouette not enlarged. Central airways and mediastinal contour are unremarkable. BONES AND SOFT TISSUES: Unremarkable. RAD/Chest 1 View (Portable) IMPRESSION: Bilateral pneumonia/pulmonary edema. Satisfactory intubation. at 1659 Reported and signed by: Charles Chin MD Electronically Signed: Charles Chin MD at 16:57 EST Tel , Service support ,
[2021-08-10 17:15] LABS: CPK Total, Creatine Kinase 63 U/L (39-308); Triglycerides 137 mg/dL
[2021-08-10 17:31] LABS: Allen Test Positive; Base Excess 2 mmol/L (-2 to +2); Bicarbonate 26.5 mmol/L (22-26); Blood Gas Specimen Type ART; FI02 90; Mode AC; O2 Delivery Device Adult Vent; PEEP 10; PO2 61 mmHG (75-100); RR 14; SITE R Radial; SO2 91 % (95-99); Total Carbon Dioxide 28 mmol/L; Vt 450
[2021-08-10] MEDS: Propofol 10MG/Ml 1,000 MG/100 ML Bottle 14.8 MG CONT INF (18:45)
[2021-08-10] MEDS: guaiFENesin 10 ML UDC (200MG/10ML) 20 ML GT (21:58)
[2021-08-10] MEDS: Chlorhexidine 15 ML PO (21:58)
[2021-08-10] MEDS: Famotidine 20 MG Tablet GT (21:58)
[2021-08-11] VITALS (35 sets, daily range): BP systolic 86–119; BP diastolic 56–78; PULSE 72–109; RESP 12–20; TEMP 36.3–37.1; O2SAT 90–95
[2021-08-11] MEDS: Propofol 10MG/Ml 1,000 MG/100 ML Bottle 14.8 MG CONT INF (00:10)
[2021-08-11] MEDS: Ipratropium/Albuterol Sulfate 3 ML AMPUL.NEB INHALATION ×3 (01:44→19:36)
[2021-08-11] MEDS: 0.9% Saline Lock 10 ML Syringe IV ×3 (03:35→08:21)
[2021-08-11 04:15] LABS: ALB/GLOB Ratio 0.4 RATIO (0.9-2.4); AST(SGOT) 36 U/L (15-37); Alanine Aminotransfer ALT/SGPT 53 U/L (16-61); Albumin, Serum 1.8 g/dL (3.2-5.0); Alkaline Phosphatase 50 U/L (45-117); Anion Gap 9 (5-15); BUN 25 mg/dL (7-18); BUN/Creat Ratio 41.1 RATIO (10-20); Calcium,Total 8.3 mg/dL (8.5-10.1); Chloride 102 mmol/L (98-107); Creatinine, Serum 0.61 mg/dL (0.70-1.30); EST Glomerular Filtration Rate 140 mL/min (>60); Est Glom Filt Rate - Afr Amer 169 mL/min (>60); Globulin 4.5 g/dL (2.2-4.2); Glucose 102 mg/dL (74-106); Potassium 3.9 mmol/L (3.5-5.1); Protein, Total 6.3 g/dL (6.4-8.2); Sodium Level 138 mmol/L (136-145)
[2021-08-11] MEDS: TITRATION PARAMETER CHANGE 1 EACH IV (04:20)
[2021-08-11] MEDS: guaiFENesin 10 ML UDC (200MG/10ML) 20 ML GT ×3 (05:38→17:12)
[2021-08-11] MEDS: Furosemide 40 MG/4 ML Vial IV (05:39)
[2021-08-11 06:00] LABS: Absolute Lymphocyte Count 0.55 X10^3/uL (0.83-4.51); Absolute Neutrophil Count 9.5 X10^3/uL (2.0-7.7); Basophil# 0.04 X10^3/uL; Basophil% 0.4 % (0-1); Eosinophil# 0.02 X10^3/uL; Eosinophils% 0.2 % (0-5); Hematocrit 37.4 % (40-54); Hemoglobin 12.3 g/dL (13.0-16.5); Lymphocyte # 0.55 X10^3/ul (0.83-4.51); Lymphocyte % 5.1 % (19-41); Mean Corp Hgb Conc 32.9 g/dL (32-36); Mean Corpuscular Hgb 27.9 pg (27.0-32.0); Mean Corpuscular Volume 84.8 fL (80-94); Mean Platelet Vol. 9.8 fl (6.2-12.0); Monocyte# 0.25 X10^3/uL; Monocyte% 2.3 % (0-10); NRBC Flagged by Analyzer 0 % (0-5); Neutrophil # 9.53 X10^3/uL (2.7-7.7); Neutrophil % 87.4 % (47-70); POSITIVE DIFFERENTIAL YES; Platelet Count 360 K/mm3 (150-450); RBC Distribution Width CV 13.2 % (11.6-14.6); RBC Distribution Width SD 40.8 fl (35.1-43.9); Red Blood Count 4.41 M/mm3 (4.6-6.2); White Blood Count 10.9 K/mm3 (4.4-11.0)
[2021-08-11 06:11] LABS: Differential Indicated SCAN CRITERIA MET
[2021-08-11] MEDS: Propofol 10MG/Ml 1,000 MG/100 ML Bottle 14.3 MG CONT INF ×4 (06:19→23:38)
[2021-08-11 06:42] LABS: Differential Comment SCANNED
--- NOTE | 2021-08-11 06:48 | CPS ---
pt changed to ac/vc+ due to double triggering and dysynchrony. Dr Kebede approved of changes
--- NOTE | 2021-08-11 07:23 | PCM.PN.INT ---
Assessment & Plan Assessment/Plan (1) Acute respiratory failure with hypoxia: (2) Pneumonia due to COVID-19 virus: PLAN: RECOMMENDATIONS: 1. Continue to wean FiO2 to maintain oxygen saturations at or above 90%. 2. Completed Remdesivir. Continue Decadron (08/12/21) and baricitinib (08/17/21) 3. Spontaneous breathing and awakening trials per protocol. 4. Continue prophylactic Lovenox. 5. Diuretics, as needed, to maintain euvolemic state. Will dose today IMPRESSIONS: 1. Acute hypoxemic respiratory failure secondary to COVID-19 pneumonia The patient initially presented to the hospital with worsening shortness of breath and hypoxemia. The patient has completed a course of remdesivir. Patient remains on Decadron and baricitinib to complete their courses. Patient with progressive decline requiring continuous BiPAP, so was intubated on 08/10/2021. Patient appears to be doing okay at this time. Will attempt to limit PEEP as patient is at risk for pneumomediastinum. Secretions appear to be doing well. We will continue to challenge with diuretics as necessary. 2. Obesity/hypertension/self-reported asthma/prior CVA Complicates care, management, recovery and prognosis. Continue home medications as indicated. Patient was cooperative with all supportive measures prior to intubation. TIME: 33 minutes critical care time spent addressing patient's acute hypoxic respiratory failure, review of CODE STATUS, review of data and collaboration with care team Subjective Subjective Patient intubated yesterday afternoon. Patient has done okay overnight. Patient remains on propofol and fentanyl for vent synchrony. Nursing and respiratory reporting relatively low secretions. Objective Data Objective Data Vital Signs: Vital Signs Temp Pulse Resp BP Pulse Ox 36.8 C 72 14 105/62 92 08/11/21 07:00 08/11/21 07:00 08/11/21 07:00 08/11/21 07:00 08/11/21 07:00 Oxygen Flow Rate (L/min) 60 Oxygen Delivery Method Mechanical Ventilator Weight: 79.4 kg Body Mass Index (BMI) 30.4 Intake & Output: Intake and Output for Last 24 Hours 08/09/21 08/10/21 08/11/21 23:59 23:59 23:59 Intake Total 600 / 600 199.45 / 276.75 254.40 / 254.40 Output Total 1300 / 1300 1615 / 1815 310 / 310 Balance -700 / -700 -1415.55 / -1538.25 -55.60 / -55.60 Medical Nutrition Assessment Dietitian: Malnutrition Criteria Met Start: 08/03/21 13:46 Freq: Status: Active Protocol: Document 08/10/21 11:58 RMA (Rec: 08/10/21 11:58 RMA [id number]) Nutrition Malnutrition Evidence of Malnutrition Exists Yes Malnutrition (severe): Acute Illness/Injury Evidenced By Suboptimal Energy Intake ( Severe),Weight Loss (Severe) Clinical Problem Acute Disease or Injury Related Malnutrition Etiology severe, acute malnutrition r/t inadequate energy intake d/t COVID-19 illness Signs/Symptoms as evidenced by unintentional wt loss of 5#/2.4% x 9 days, estimated PO intake meeting < 50% of estimated nutritional needs >1 week Status Active Problem Recommendation Dietitian Recommendations/Changes continue regular diet if tolerated; will continue ensure milkshake w/ lunch and dinner for additional calories /protein if consumed as appropriate. If pt requires enteral nutrition support, recommend start TF with Vital HP @ 20ml/ hr and increase by 10ml/hr Q 6 -8 hours as tolerated to goal rate 50ml/hr. Water flush 75mL Q 4 hours to provide 1200kcal , 105 gm pro and 1603ml free water per day. PO vs. TF support if intubation required. Lab / Micro Data Result Diagrams: 08/11/21 05:45 08/11/21 03:35 Labs: Laboratory Results - last 24 hr 08/10/21 05:15: Total Creatine Kinase 63, Triglycerides 137 08/11/21 03:35: Sodium 138, Potassium 3.9, Chloride 102, Carbon Dioxide 27.0, Anion Gap 9, BUN 25 H, Creatinine 0.61 L, Estim Creat Clear Calc 68.40, Est GFR (MDRD) Af Amer 169, Est GFR (MDRD) Non-Af 140, BUN/Creatinine Ratio 41.1 H, Glucose 102, Calcium 8.3 L, Total Bilirubin 0.50, AST 36, ALT 53, Alkaline Phosphatase 50, Total Protein 6.3 L, Albumin 1.8 L, Globulin 4.5 H, Albumin/Globulin Ratio 0.4 L 08/11/21 05:45: WBC 10.9, RBC 4.41 L, Hgb 12.3 L, Hct 37.4 L, MCV 84.8, MCH 27.9, MCHC 32.9, RDW Std Deviation 40.8, RDW Coeff of Williams 13.2, Plt Count 360, MPV 9.8, Immature Gran % (Auto) 4.600 H, Neut % (Auto) 87.4 H, Lymph % (Auto) 5.1 L, [place] % (Auto) 2.3, Eos % (Auto) 0.2, Baso % (Auto) 0.4, Absolute Neuts (auto) 9.5 H, Absolute Lymphs (auto) 0.55 L, Nucleated RBC % 0, Differential Comment SCANNED Micro: Microbiology 08/03/21 18:00 Blood Culture (Wb) - Anticubital Left Blood Culture - Final No growth in 5 days. 08/03/21 20:20 Blood Culture (Wb) - Right Hand Blood Culture - Final No growth in 5 days. 08/03/21 01:00 Sputum, Expectorated/Coughed Gram Stain - Final 08/03/21 01:00 Sputum, Expectorated/Coughed Respiratory Culture - Final Mixed normal respiratory christina. No Streptococcus pneumoniae, beta-hemolytic Streptococcus or Staphylococcus aureus isolated. 08/03/21 13:33 Urine, Clean Catch Legionella Antigen - Final 08/03/21 13:33 Urine, Clean Catch Streptococcus pneumoniae Antigen (M - Final ABG Data ABG results: ABG 08/10/21 17:25 Specimen Type ART Sample Site R Radial pH 7.40 Bicarbonate Actual 26.5 H Total CO2 28 Base Excess 2 O2 Saturation 91 L O2 % 90 ABG pCO2 43.0 ABG pO2 61 L Raul Test Positive Respiration Rate 14 O2 Delivery Device Adult Vent Vent Mode AC Tidal Volume 450 POC PEEP 10 Radiography Diagnostic Testing: Radiology Impression Chest X-Ray 08/10/21 15:44 IMPRESSION: Bilateral pneumonia/pulmonary edema. Satisfactory intubation. at 1658 Reported and signed by: Charles Chin MD Electronically Signed: Charles Chin MD at 16:57 EST Tel , Service support , KUB X-Ray 08/10/21 15:44 Physical Exam Const General Appearance: comfortable, intubated and patient mechanically ventilated Nutritional Appearance: obese HEENT normocephalic and head/scalp atraumatic Eyes PERRL, EOMs intact bilaterally and conjunctivae normal Neck supple General: trachea midline Chest inspection of chest normal Chest: symmetrical chest wall rise; Negative for crepitus Resp Resp Narrative: Good ventilator synchrony Effort and Inspection: Negative for labored Auscultation: diminished lung sounds; Negative for rales, rhonchi or wheezes Cardio regular rate and regular rhythm GI normal to inspection, nondistended, normoactive bowel sounds Extremity no clubbing, cyanosis or edema Skin no rashes or lesions noted Neuro CN's II-XII intact bilaterally, moves all extremities and no focal motor deficits Psych cooperative and affect normal Charges/Coding Procedures Hospitalists Procedures: [id number] Critial Care 1st Hr
[2021-08-11] MEDS: Famotidine 20 MG Tablet GT ×2 (08:21→22:26)
[2021-08-11] MEDS: Aspirin 325 MG Tablet GT (08:21)
[2021-08-11] MEDS: Enoxaparin 30 MG/0.3 ML Syringe SC ×2 (08:21→22:26)
[2021-08-11] MEDS: dexAMETHasone 10 MG/ML Vial 6 MG IV (08:22)
[2021-08-11] MEDS: Chlorhexidine 15 ML PO ×2 (08:22→22:26)
[2021-08-11] MEDS: Menthol/Lanolin/Calamine/Znox 113 GM Tube 1 APPLIC TOPICAL (08:23)
[2021-08-11] MEDS: CHLORHEXIDINE GLUC 2% CLOTH 1 EACH TOWELETTE TOPICAL (08:23)
--- NOTE | 2021-08-11 14:29 | PN.HOSP_ITS ---
Subjective Subjective Follow-up on acute respiratory failure/acute COVID-19 pneumonia: Patient was seen and examined. Patient remains intubated today 08/10. On mechanical ventilator, PEEP 10. Objective Data Objective Data Vital Signs: Vital Signs Temp Pulse Resp BP Pulse Ox 97.6 F L 74 15 101/56 L 93 08/11/21 12:00 08/11/21 13:33 08/11/21 13:33 08/11/21 13:00 08/11/21 13:33 Oxygen Flow Rate (L/min) 60 Oxygen Delivery Method Mechanical Ventilator Weight: 79.4 kg Body Mass Index (BMI) 30.4 Intake & Output: Intake and Output for Last 24 Hours 08/09/21 08/10/21 08/11/21 23:59 23:59 23:59 Intake Total 600 / 600 199.45 / 276.75 733.42 / 733.42 Output Total 1300 / 1300 1615 / 1815 1235 / 1235 Balance -700 / -700 -1415.55 / -1538.25 -501.58 / -501.58 Medical Nutrition Assessment Dietitian: Malnutrition Criteria Met Start: 08/03/21 13:46 Freq: Status: Active Protocol: Document 08/11/21 12:22 RMA (Rec: 08/11/21 12:22 RMA [id number]) Nutrition Malnutrition Evidence of Malnutrition Exists Yes Malnutrition (severe): Acute Illness/Injury Evidenced By Suboptimal Energy Intake ( Severe),Weight Loss (Severe) Clinical Problem Acute Disease or Injury Related Malnutrition Etiology severe, acute malnutrition r/t inadequate energy intake d/t COVID-19 illness Signs/Symptoms as evidenced by unintentional wt loss of 5#/2.4% x 9 days, estimated PO intake meeting < 50% of estimated nutritional needs >1 week, NPO/intubation and need for enteral nutrition support Status Active Problem Recommendation Dietitian Recommendations/Changes NPO/intubated. Will start TF with Vital HP @ 20ml/hr and increase by 10ml/ hr Q 6-8 hours as tolerated to goal rate 50ml/hr. Water flush 75mL Q 4 hours to provide 1200kcal, 105 gm pro and 1603ml free water per day. Will monitor TF tolerance as established. Lab / Micro Data Result Diagrams: 08/11/21 05:45 08/11/21 03:35 Labs: Laboratory Results - last 24 hr 08/10/21 05:15: Total Creatine Kinase 63, Triglycerides 137 08/11/21 03:35: Sodium 138, Potassium 3.9, Chloride 102, Carbon Dioxide 27.0, Anion Gap 9, BUN 25 H, Creatinine 0.61 L, Estim Creat Clear Calc 68.40, Est GFR (MDRD) Af Amer 169, Est GFR (MDRD) Non-Af 140, BUN/Creatinine Ratio 41.1 H, Glucose 102, Calcium 8.3 L, Total Bilirubin 0.50, AST 36, ALT 53, Alkaline Phosphatase 50, Total Protein 6.3 L, Albumin 1.8 L, Globulin 4.5 H, Albumin/Globulin Ratio 0.4 L 08/11/21 05:45: WBC 10.9, RBC 4.41 L, Hgb 12.3 L, Hct 37.4 L, MCV 84.8, MCH 27.9, MCHC 32.9, RDW Std Deviation 40.8, RDW Coeff of Williams 13.2, Plt Count 360, MPV 9.8, Immature Gran % (Auto) 4.600 H, Neut % (Auto) 87.4 H, Lymph % (Auto) 5.1 L, [place] % (Auto) 2.3, Eos % (Auto) 0.2, Baso % (Auto) 0.4, Absolute Neuts (auto) 9.5 H, Absolute Lymphs (auto) 0.55 L, Nucleated RBC % 0, Differential Comment SCANNED Micro: Microbiology 08/10/21 15:30 Sputum, Induced/Lukens Respiratory Culture - 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 08/03/21 20:20 Blood Culture (Wb) - Right Hand Blood Culture - Final No growth in 5 days. 08/03/21 01:00 Sputum, Expectorated/Coughed Gram Stain - Final 08/03/21 01:00 Sputum, Expectorated/Coughed Respiratory Culture - Final Mixed normal respiratory christina. No Streptococcus pneumoniae, beta-hemolytic Streptococcus or Staphylococcus aureus isolated. 08/03/21 13:33 Urine, Clean Catch Legionella Antigen - Final 08/03/21 13:33 Urine, Clean Catch Streptococcus pneumoniae Antigen (M - Final ABG Data ABG results: ABG 08/10/21 17:25 Specimen Type ART Sample Site R Radial pH 7.40 Bicarbonate Actual 26.5 H Total CO2 28 Base Excess 2 O2 Saturation 91 L O2 % 90 ABG pCO2 43.0 ABG pO2 61 L Raul Test Positive Respiration Rate 14 O2 Delivery Device Adult Vent Vent Mode AC Tidal Volume 450 POC PEEP 10 Radiography Diagnostic Testing: Radiology Impression Chest X-Ray 08/10/21 15:44 IMPRESSION: Bilateral pneumonia/pulmonary edema. Satisfactory intubation. at 1659 Reported and signed by: Charles Chin MD Electronically Signed: Charles Chin MD at 16:57 EST Tel , Service support , KUB X-Ray 08/10/21 15:44 Physical Exam Narrative Physical exam: General: Alert, Oriented x3, Cooperative, no apparent distress, appears frail, on AVAPS HEENT: Atraumatic Oral: Moist Mucosa Neck: Supple Lungs: Diminished to auscultation Cardiovascular: HS I+II, regular, no murmurs Abdomen: Bowel Sounds Present, Soft, Non Tender Extremities: No edema Assessment & Plan Assessment/Plan (1) Severe malnutrition: (2) Hypokalemia: (3) Acute asthma exacerbation: QUALIFIERS: Asthma severity: mild Asthma persistence: intermittent Qualified Code(s): J45.21 - Mild intermittent asthma with (acute) exacerbation (4) Pneumonia due to COVID-19 virus: (5) Acute respiratory failure with hypoxia: PLAN: 1. Acute hypoxic respiratory failure secondary to Acute COVID-19 pneumonia, Status post intubation, continue mechanical ventilator Patient is unvaccinated; presented with 8-day history of fever, chills, shortne ss of breath. Tested positive for Covid on 07/28 CXR and CTA of the chest done in outside hospital showed bilateral infiltrates, negative for acute PE Continue on Baricitinib, dexamethasone, Completed remdesivir 2. Acute asthma exacerbation, improved, management as in #1 3. Hypokalemia, resolved 4. Hypertension, continue on metoprolol and losartan 5. Severe acute malnutrition r/t inadequate energy intake d/t COVID-19 illness as evidenced by unintentional wt loss of 5#/2.4% x 9 days, estimated PO intake meeting <50% of estimated nutritional needs >1 week Patient will be receiving tube feeds Charges/Coding Visit Charges Inpatient E&M: 41673 Subs Hosp L3
[2021-08-11] MEDS: Vital High Protein 1,000 ML 50 ML GT (15:39)
[2021-08-12] VITALS (38 sets, daily range): BP systolic 93–133; BP diastolic 53–76; PULSE 76–110; RESP 13–22; TEMP 37.2–37.8; O2SAT 85–96
[2021-08-12] MEDS: guaiFENesin 10 ML UDC (200MG/10ML) 20 ML GT ×5 (00:38→23:00)
[2021-08-12] MEDS: Menthol/Lanolin/Calamine/Znox 113 GM Tube 1 APPLIC TOPICAL ×4 (00:38→22:59)
[2021-08-12] MEDS: Ipratropium/Albuterol Sulfate 3 ML AMPUL.NEB INHALATION ×5 (01:36→23:31)
[2021-08-12 03:02] LABS: Basophil# 0.03 X10^3/uL; Basophil% 0.2 % (0-1); Eosinophil# 0.01 X10^3/uL; Eosinophils% 0.1 % (0-5); Hematocrit 37.1 % (40-54); Hemoglobin 12.2 g/dL (13.0-16.5); Lymphocyte % 3.8 % (19-41); Mean Corp Hgb Conc 32.9 g/dL (32-36); Mean Corpuscular Hgb 28.2 pg (27.0-32.0); Mean Corpuscular Volume 85.7 fL (80-94); Mean Platelet Vol. 9.8 fl (6.2-12.0); Monocyte# 0.35 X10^3/uL; Monocyte% 2.6 % (0-10); NRBC Flagged by Analyzer 0 % (0-5); Neutrophil # 12.01 X10^3/uL (2.7-7.7); Neutrophil % 90.1 % (47-70); POSITIVE DIFFERENTIAL YES; Platelet Count 358 K/mm3 (150-450); RBC Distribution Width CV 13.1 % (11.6-14.6); RBC Distribution Width SD 40.9 fl (35.1-43.9); Red Blood Count 4.33 M/mm3 (4.6-6.2); White Blood Count 13.3 K/mm3 (4.4-11.0)
[2021-08-12 03:06] LABS: Differential Indicated SCAN CRITERIA MET
[2021-08-12 04:11] LABS: ALB/GLOB Ratio 0.4 RATIO (0.9-2.4); AST(SGOT) 31 U/L (15-37); Alanine Aminotransfer ALT/SGPT 48 U/L (16-61); Albumin, Serum 1.8 g/dL (3.2-5.0); Alkaline Phosphatase 47 U/L (45-117); Anion Gap 8 (5-15); BUN 27 mg/dL (7-18); BUN/Creat Ratio 40.2 RATIO (10-20); Calcium,Total 8.3 mg/dL (8.5-10.1); Chloride 103 mmol/L (98-107); Creatinine, Serum 0.67 mg/dL (0.70-1.30); EST Glomerular Filtration Rate 125 mL/min (>60); Est Glom Filt Rate - Afr Amer 151 mL/min (>60); Globulin 4.5 g/dL (2.2-4.2); Glucose 107 mg/dL (74-106); Potassium 3.9 mmol/L (3.5-5.1); Protein, Total 6.3 g/dL (6.4-8.2); Sodium Level 139 mmol/L (136-145)
[2021-08-12] MEDS: CHLORHEXIDINE GLUC 2% CLOTH 1 EACH TOWELETTE TOPICAL (06:33)
--- NOTE | 2021-08-12 06:35 | PCM.PN.INT ---
Assessment & Plan Assessment/Plan (1) Acute respiratory failure with hypoxia: (2) Pneumonia due to COVID-19 virus: PLAN: RECOMMENDATIONS: 1. Continue to wean FiO2 to maintain oxygen saturations at or above 90%. 2. Completed Remdesivir. Continue Decadron (08/12/21) and baricitinib (08/17/21) 3. Spontaneous breathing and awakening trials per protocol. 4. Continue prophylactic Lovenox. 5. Diuretics, as needed, to maintain euvolemic state. 6. Add Levaquin given GNR in sputum IMPRESSIONS: 1. Acute hypoxemic respiratory failure secondary to COVID-19 pneumonia The patient initially presented to the hospital with worsening shortness of breath and hypoxemia. The patient has completed a course of remdesivir. Patient remains on Decadron and baricitinib to complete their courses. Patient with progressive decline requiring continuous BiPAP, so was intubated on 08/10/2021. Patient appears to be doing okay at this time. Sputum culture following intubation is showing a GNR. Levaquin will be initiated. Will attempt to limit PEEP as patient is at risk for pneumomediastinum. Secretions appear to be doing well. We will continue to challenge with diuretics as blood pressure allows. 2. Obesity/hypertension/self-reported asthma/prior CVA Complicates care, management, recovery and prognosis. Continue home medications as indicated. Patient was cooperative with all supportive measures prior to intubation. TIME: 35 minutes critical care time spent addressing patient's acute hypoxic respiratory failure, review of CODE STATUS, review of data and collaboration with care team Subjective Subjective Patient did okay overnight. No significant change in secretions noted. Patient's blood pressures have been marginal, but acceptable. No interventions have been required. Objective Data Objective Data Vital Signs: Vital Signs Temp Pulse Resp BP Pulse Ox 37.4 C H 84 18 95/54 L 92 08/12/21 03:00 08/12/21 05:12 08/12/21 05:12 08/12/21 03:00 08/12/21 05:12 Oxygen Flow Rate (L/min) 60 Oxygen Delivery Method Mechanical Ventilator Weight: 79.4 kg Body Mass Index (BMI) 30.4 Intake & Output: Intake and Output for Last 24 Hours 08/10/21 08/11/21 08/12/21 23:59 23:59 23:59 Intake Total 199.45 / 276.75 1299.92 / 1417.66 607.64 / 607.64 Output Total 1615 / 1815 1485 / 1485 350 / 350 Balance -1415.55 / -1538.25 -185.08 / -67.34 257.64 / 257.64 Medical Nutrition Assessment Dietitian: Malnutrition Criteria Met Start: 08/03/21 13:46 Freq: Status: Active Protocol: Document 08/11/21 12:22 RMA (Rec: 08/11/21 12:22 RMA [id number]) Nutrition Malnutrition Evidence of Malnutrition Exists Yes Malnutrition (severe): Acute Illness/Injury Evidenced By Suboptimal Energy Intake ( Severe),Weight Loss (Severe) Clinical Problem Acute Disease or Injury Related Malnutrition Etiology severe, acute malnutrition r/t inadequate energy intake d/t COVID-19 illness Signs/Symptoms as evidenced by unintentional wt loss of 5#/2.4% x 9 days, estimated PO intake meeting < 50% of estimated nutritional needs >1 week, NPO/intubation and need for enteral nutrition support Status Active Problem Recommendation Dietitian Recommendations/Changes NPO/intubated. Will start TF with Vital HP @ 20ml/hr and increase by 10ml/ hr Q 6-8 hours as tolerated to goal rate 50ml/hr. Water flush 75mL Q 4 hours to provide 1200kcal, 105 gm pro and 1603ml free water per day. Will monitor TF tolerance as established. Lab / Micro Data Result Diagrams: 08/12/21 02:46 08/12/21 02:46 Labs: Laboratory Results - last 24 hr 08/11/21 05:45: Differential Comment SCANNED 08/12/21 02:46: Sodium 139, Potassium 3.9, Chloride 103, Carbon Dioxide 28.0, Anion Gap 8, BUN 27 H, Creatinine 0.67 L, Estim Creat Clear Calc 68.40, Est GFR (MDRD) Af Amer 151, Est GFR (MDRD) Non-Af 125, BUN/Creatinine Ratio 40.2 H, Glucose 107 H, Calcium 8.3 L, Total Bilirubin 0.40, AST 31, ALT 48, Alkaline Phosphatase 47, Total Protein 6.3 L, Albumin 1.8 L, Globulin 4.5 H, Albumin/Globulin Ratio 0.4 L 08/12/21 02:46: WBC 13.3 H, RBC 4.33 L, Hgb 12.2 L, Hct 37.1 L, MCV 85.7, MCH 28.2, MCHC 32.9, RDW Std Deviation 40.9, RDW Coeff of Williams 13.1, Plt Count 358, MPV 9.8, Immature Gran % (Auto) 3.200 H, Neut % (Auto) 90.1 H, Lymph % (Auto) 3.8 L, [place] % (Auto) 2.6, Eos % (Auto) 0.1, Baso % (Auto) 0.2, Absolute Neuts (auto) 12.0 H, Absolute Lymphs (auto) 0.50 L, Nucleated RBC % 0 Micro: Microbiology 08/10/21 15:30 Sputum, Induced/Lukens Gram Stain - Final 08/10/21 15:30 Sputum, Induced/Lukens Respiratory Culture - 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 08/03/21 20:20 Blood Culture (Wb) - Right Hand Blood Culture - Final No growth in 5 days. 08/03/21 01:00 Sputum, Expectorated/Coughed Gram Stain - Final 08/03/21 01:00 Sputum, Expectorated/Coughed Respiratory Culture - Final Mixed normal respiratory christina. No Streptococcus pneumoniae, beta-hemolytic Streptococcus or Staphylococcus aureus isolated. 08/03/21 13:33 Urine, Clean Catch Legionella Antigen - Final 08/03/21 13:33 Urine, Clean Catch Streptococcus pneumoniae Antigen (M - Final Physical Exam Const General Appearance: comfortable, intubated and patient mechanically ventilated Nutritional Appearance: obese HEENT normocephalic and head/scalp atraumatic Eyes PERRL, EOMs intact bilaterally and conjunctivae normal Neck supple General: trachea midline Chest inspection of chest normal Chest: symmetrical chest wall rise; Negative for crepitus Resp Resp Narrative: Good ventilator synchrony Effort and Inspection: Negative for labored Auscultation: diminished lung sounds; Negative for rales, rhonchi or wheezes Cardio regular rate and regular rhythm GI normal to inspection, nondistended, normoactive bowel sounds Extremity no clubbing, cyanosis or edema Skin no rashes or lesions noted Neuro CN's II-XII intact bilaterally, moves all extremities and no focal motor deficits Psych cooperative and affect normal Charges/Coding Procedures Hospitalists Procedures: [id number] Critial Care 1st Hr
[2021-08-12] MEDS: Propofol 10MG/Ml 1,000 MG/100 ML Bottle 14.3 MG CONT INF ×5 (06:39→21:36)
[2021-08-12] MEDS: Enoxaparin 30 MG/0.3 ML Syringe SC ×2 (09:06→23:00)
[2021-08-12] MEDS: Chlorhexidine 15 ML PO ×2 (09:08→22:59)
[2021-08-12] MEDS: Aspirin 325 MG Tablet GT (09:08)
[2021-08-12] MEDS: dexAMETHasone 10 MG/ML Vial 6 MG IV (09:08)
[2021-08-12] MEDS: Famotidine 20 MG Tablet GT ×2 (09:08→23:00)
[2021-08-12] MEDS: 0.9% Saline Lock 10 ML Syringe IV (09:09)
[2021-08-12] MEDS: levoFLOXacin IV 500 MG/100 ML BAG 100 MG IV (09:45)
--- NOTE | 2021-08-12 10:43 | PN.HOSP_ITS ---
Subjective Subjective Follow-up on acute respiratory failure/acute COVID-19 pneumonia: Patient was seen and examined. No new acute events. Patient remains intubated 08/10. Sputum cultures showed Klebsiella pneumoniae Objective Data Objective Data Vital Signs: Vital Signs Temp Pulse Resp BP Pulse Ox 100 F H 93 20 H 94/64 92 08/12/21 08:00 08/12/21 10:06 08/12/21 10:06 08/12/21 10:00 08/12/21 10:06 Oxygen Flow Rate (L/min) 60 Oxygen Delivery Method Mechanical Ventilator Weight: 79.4 kg Body Mass Index (BMI) 30.4 Intake & Output: Intake and Output for Last 24 Hours 08/10/21 08/11/21 08/12/21 23:59 23:59 23:59 Intake Total 199.45 / 276.75 1299.92 / 1417.66 1010.11 / 1010.11 Output Total 1615 / 1815 1485 / 1485 510 / 510 Balance -1415.55 / -1538.25 -185.08 / -67.34 500.11 / 500.11 Medical Nutrition Assessment Dietitian: Malnutrition Criteria Met Start: 08/03/21 13:46 Freq: Status: Active Protocol: Document 08/11/21 12:22 RMA (Rec: 08/11/21 12:22 RMA [id number]) Nutrition Malnutrition Evidence of Malnutrition Exists Yes Malnutrition (severe): Acute Illness/Injury Evidenced By Suboptimal Energy Intake ( Severe),Weight Loss (Severe) Clinical Problem Acute Disease or Injury Related Malnutrition Etiology severe, acute malnutrition r/t inadequate energy intake d/t COVID-19 illness Signs/Symptoms as evidenced by unintentional wt loss of 5#/2.4% x 9 days, estimated PO intake meeting < 50% of estimated nutritional needs >1 week, NPO/intubation and need for enteral nutrition support Status Active Problem Recommendation Dietitian Recommendations/Changes NPO/intubated. Will start TF with Vital HP @ 20ml/hr and increase by 10ml/ hr Q 6-8 hours as tolerated to goal rate 50ml/hr. Water flush 75mL Q 4 hours to provide 1200kcal, 105 gm pro and 1603ml free water per day. Will monitor TF tolerance as established. Lab / Micro Data Result Diagrams: 08/12/21 02:46 08/12/21 02:46 Labs: Laboratory Results - last 24 hr 08/12/21 02:46: Sodium 139, Potassium 3.9, Chloride 103, Carbon Dioxide 28.0, Anion Gap 8, BUN 27 H, Creatinine 0.67 L, Estim Creat Clear Calc 68.40, Est GFR (MDRD) Af Amer 151, Est GFR (MDRD) Non-Af 125, BUN/Creatinine Ratio 40.2 H, Glucose 107 H, Calcium 8.3 L, Total Bilirubin 0.40, AST 31, ALT 48, Alkaline Phosphatase 47, Total Protein 6.3 L, Albumin 1.8 L, Globulin 4.5 H, Albumin/G lobulin Ratio 0.4 L 08/12/21 02:46: WBC 13.3 H, RBC 4.33 L, Hgb 12.2 L, Hct 37.1 L, MCV 85.7, MCH 28.2, MCHC 32.9, RDW Std Deviation 40.9, RDW Coeff of Williams 13.1, Plt Count 358, MPV 9.8, Immature Gran % (Auto) 3.200 H, Neut % (Auto) 90.1 H, Lymph % (Auto) 3.8 L, [place] % (Auto) 2.6, Eos % (Auto) 0.1, Baso % (Auto) 0.2, Absolute Neuts (auto) 12.0 H, Absolute Lymphs (auto) 0.50 L, Nucleated RBC % 0 Micro: Microbiology 08/10/21 15:30 Sputum, Induced/Lukens Gram Stain - Final 08/10/21 15:30 Sputum, Induced/Lukens Respiratory Culture - Final Klebsiella pneumoniae sp pneum 08/03/21 18:00 Blood Culture (Wb) - Anticubital Left Blood Culture - Final No growth in 5 days. 08/03/21 20:20 Blood Culture (Wb) - Right Hand Blood Culture - Final No growth in 5 days. 08/03/21 01:00 Sputum, Expectorated/Coughed Gram Stain - Final 08/03/21 01:00 Sputum, Expectorated/Coughed Respiratory Culture - Final Mixed normal respiratory christina. No Streptococcus pneumoniae, beta-hemolytic Streptococcus or Staphylococcus aureus isolated. 08/03/21 13:33 Urine, Clean Catch Legionella Antigen - Final 08/03/21 13:33 Urine, Clean Catch Streptococcus pneumoniae Antigen (M - Final Physical Exam Narrative Physical exam: General: Sedated, intubated, on mechanical ventilator HEENT: Atraumatic Oral: Moist Mucosa Neck: Supple Lungs: Diminished to auscultation Cardiovascular: HS I+II, regular, no murmurs Abdomen: Bowel Sounds Present, Soft, Non Tender Extremities: No edema Assessment & Plan Assessment/Plan (1) Severe malnutrition: (2) Hypokalemia: (3) Acute asthma exacerbation: QUALIFIERS: Asthma severity: mild Asthma persistence: intermittent Qualified Code(s): J45.21 - Mild intermittent asthma with (acute) exacerbation (4) Pneumonia due to COVID-19 virus: (5) Acute respiratory failure with hypoxia: PLAN: 1. Acute hypoxic respiratory failure secondary to Acute COVID-19 pneumonia/Klebsiella pneumoniae Status post intubation, continue mechanical ventilator Patient is unvaccinated; presented with 8-day history of fever, chills, shortness of breath. Tested positive for Covid on 07/28 CXR and CTA of the chest done in outside hospital showed bilateral infiltrates, negative for acute PE Sputum cultures grew Klebsiella pneumoniae; started on Levaquin IV Continue on Baricitinib Completed Remdesivir and Decadron 2. Acute asthma exacerbation, improved, management as in #1 3. Hypokalemia, resolved 4. Hypertension, continue on metoprolol and losartan 5. Severe acute malnutrition r/t inadequate energy intake d/t COVID-19 illness as evidenced by unintentional wt loss of 5#/2.4% x 9 days, estimated PO intake meeting <50% of estimated nutritional needs >1 week Patient on tube feeds Charges/Coding Visit Charges Inpatient E&M: 45169 [facility] Hosp L3
[2021-08-12] MEDS: Vital High Protein 1,000 ML 55 ML GT (23:14)
[2021-08-13] VITALS (36 sets, daily range): BP systolic 97–130; BP diastolic 55–74; PULSE 79–801; RESP 13–20; TEMP 37.4–38.1; O2SAT 89–95
[2021-08-13] MEDS: Propofol 10MG/Ml 1,000 MG/100 ML Bottle 14.3 MG CONT INF (04:18)
[2021-08-13 05:12] LABS: Absolute Lymphocyte Count 0.52 X10^3/uL (0.83-4.51); Absolute Neutrophil Count 11.7 X10^3/uL (2.0-7.7); Basophil# 0.02 X10^3/uL; Basophil% 0.2 % (0-1); Eosinophil# 0.03 X10^3/uL; Eosinophils% 0.2 % (0-5); Hematocrit 36.7 % (40-54); Hemoglobin 11.6 g/dL (13.0-16.5); Lymphocyte # 0.52 X10^3/ul (0.83-4.51); Mean Corp Hgb Conc 31.6 g/dL (32-36); Mean Corpuscular Hgb 27.8 pg (27.0-32.0); Mean Corpuscular Volume 87.8 fL (80-94); Mean Platelet Vol. 10.1 fl (6.2-12.0); Monocyte# 0.34 X10^3/uL; Monocyte% 2.6 % (0-10); NRBC Flagged by Analyzer 0 % (0-5); Neutrophil # 11.65 X10^3/uL (2.7-7.7); Neutrophil % 90.4 % (47-70); POSITIVE DIFFERENTIAL YES; Platelet Count 327 K/mm3 (150-450); RBC Distribution Width CV 13.2 % (11.6-14.6); RBC Distribution Width SD 42.2 fl (35.1-43.9); Red Blood Count 4.18 M/mm3 (4.6-6.2); White Blood Count 12.9 K/mm3 (4.4-11.0)
[2021-08-13 05:45] LABS: ALB/GLOB Ratio 0.4 RATIO (0.9-2.4); AST(SGOT) 40 U/L (15-37); Alanine Aminotransfer ALT/SGPT 47 U/L (16-61); Albumin, Serum 1.8 g/dL (3.2-5.0); Alkaline Phosphatase 47 U/L (45-117); Anion Gap 6 (5-15); BUN 22 mg/dL (7-18); BUN/Creat Ratio 40.4 RATIO (10-20); Chloride 104 mmol/L (98-107); Creatinine, Serum 0.54 mg/dL (0.70-1.30); EST Glomerular Filtration Rate 159 mL/min (>60); Est Glom Filt Rate - Afr Amer 192 mL/min (>60); Globulin 4.3 g/dL (2.2-4.2); Glucose 103 mg/dL (74-106); Potassium 3.7 mmol/L (3.5-5.1); Protein, Total 6.1 g/dL (6.4-8.2); Sodium Level 139 mmol/L (136-145)
--- NOTE | 2021-08-13 06:48 | PN.CC_ITS ---
Assessment & Plan Assessment/Plan (1) Acute respiratory failure with hypoxia: (2) Pneumonia due to COVID-19 virus: PLAN: RECOMMENDATIONS: 1. Continue to wean FiO2 to maintain oxygen saturations at or above 90%. 2. Continue antimicrobials to complete 7-day treatment course. 3. Continue baricitinib to complete treatment course. 4. Continue prophylactic Lovenox. 5. Continue appropriate GI prophylaxis. 6. Diuretics, as needed, to maintain euvolemic state. 7. Tube feeds as tolerated. IMPRESSIONS: 1. Acute hypoxemic respiratory failure secondary to COVID-19 pneumonia The patient initially presented to the hospital with worsening shortness of breath and hypoxemia. The patient has completed a course of remdesivir. The patient remains on Decadron and baricitinib to complete their courses. Ultimately, the patient continued to decompensate from a respiratory perspective and had to be intubated on August 10. Sputum culture was positive for Klebsiella, which is currently being addressed with antimicrobial therapy. Antibiotics will be continued to complete a 7-day treatment course. In the interim, we will continue to wean FiO2 and PEEP as tolerated for saturations greater than 90%. Diuretics will be utilized as needed to maintain euvolemic state. Continue tube feeds as tolerated. Continue appropriate GI and DVT prophylaxis. 2. Obesity/hypertension/self-reported asthma/prior CVA Complicates care, management, recovery and prognosis. Continue home medications as indicated. Continue nutritional support via tube feeds and physical therapy as tolerated. TIME: 34 minutes of critical care time, independent of procedures, was spent addressing the patient's acute hypoxemic respiratory failure secondary to COVID- 19 pneumonia, review of all data and collaboration with care team. Subjective Subjective The patient was seen and examined at the bedside this morning. Events from the last 24 hours have been reviewed. The patient has had some low-grade fevers overnight, but remains otherwise hemodynamically stable. The patient is currently on assist control mode of mechanical ventilation with an FiO2 requirement of 55% and PEEP of 10. He is sedated on fentanyl and propofol. N evertheless, the patient is alert and able to follow commands. He is currently tolerating tube feeds. The patient is documented to be overall net -3.7 L for the hospitalization. The patient remains on Levaquin, prophylactic Lovenox and baricitinib. The patient has completed treatment courses of remdesivir and Decadron. Objective Data Objective Data The patient's most recent lab work, culture data and imaging studies have all been personally reviewed. Sputum culture dated August 10 was positive for Klebsiella pneumoniae. Vital Signs: Vital Signs Temp Pulse Resp BP Pulse Ox 100.1 F H 85 18 106/60 92 08/13/21 06:00 08/13/21 06:00 08/13/21 06:00 08/13/21 06:00 08/13/21 06:00 Oxygen Flow Rate (L/min) 60 Oxygen Delivery Method Mechanical Ventilator Weight: 79.4 kg Body Mass Index (BMI) 30.4 Intake & Output: Intake and Output for Last 24 Hours 08/11/21 08/12/21 08/13/21 23:59 23:59 23:59 Intake Total 1299.92 / 1417.66 2856.81 / 2983.61 799.29 / 799.29 Output Total 1485 / 1485 1070 / 1295 485 / 485 Balance -185.08 / -67.34 1786.81 / 1688.61 314.29 / 314.29 Medical Nutrition Assessment Dietitian: Malnutrition Criteria Met Start: 08/03/21 13:46 Freq: Status: Active Protocol: Document 08/12/21 15:19 AG (Rec: 08/12/21 15:19 AG [id number]) Nutrition Malnutrition Evidence of Malnutrition Exists Yes Malnutrition (severe): Acute Illness/Injury Evidenced By Suboptimal Energy Intake ( Severe),Weight Loss (Severe) Clinical Problem Acute Disease or Injury Related Malnutrition Etiology severe, acute malnutrition r/t inadequate energy intake d/t COVID-19 illness Signs/Symptoms as evidenced by unintentional wt loss of 5#/2.4% x 9 days, estimated PO intake meeting < 50% of estimated nutritional needs >1 week, NPO/intubation and need for enteral nutrition support Status Active Problem Recommendation Dietitian Recommendations/Changes NPO while intubated; As tolerated, advance Vital HP to 55mL/hour w/ 100mL H2O flush every 4 hours to provide 1320 calories, 115 g protein, and 1703mL fluid/day. As ordered, enteral nutrition support will meet 70% daily estimated calories, 100% daily estimated protein needs. Lab / Micro Data Attestation: I reviewed the patient's lab results. Result Diagrams: 08/13/21 04:20 08/13/21 04:20 Labs: Laboratory Results - last 24 hr 08/13/21 04:20: Sodium 139, Potassium 3.7, Chloride 104, Carbon Dioxide 29.0, Anion Gap 6, BUN 22 H, Creatinine 0.54 L, Estim Creat Clear Calc 68.40, Est GFR (MDRD) Af Amer 192, Est GFR (MDRD) Non-Af 159, BUN/Creatinine Ratio 40.4 H, Glucose 103, Calcium 8.0 L, Total Bilirubin 0.30, AST 40 H, ALT 47, Alkaline Phosphatase 47, Total Protein 6.1 L, Albumin 1.8 L, Globulin 4.3 H, Albumin/Globulin Ratio 0.4 L Micro: Microbiology 08/10/21 15:30 Sputum, Induced/Lukens Gram Stain - Final 08/10/21 15:30 Sputum, Induced/Lukens Respiratory Culture - Final Klebsiella pneumoniae sp pneum 08/03/21 18:00 Blood Culture (Wb) - Anticubital Left Blood Culture - Final No growth in 5 days. 08/03/21 20:20 Blood Culture (Wb) - Right Hand Blood Culture - Final No growth in 5 days. 08/03/21 01:00 Sputum, Expectorated/Coughed Gram Stain - Final 08/03/21 01:00 Sputum, Expectorated/Coughed Respiratory Culture - Final Mixed normal respiratory christina. No Streptococcus pneumoniae, beta-hemolytic Streptococcus or Staphylococcus aureus isolated. 08/03/21 13:33 Urine, Clean Catch Legionella Antigen - Final 08/03/21 13:33 Urine, Clean Catch Streptococcus pneumoniae Antigen (M - Final Physical Exam Const alert and no apparent distress General Appearance: intubated and patient mechanically ventilated HEENT normocephalic and head/scalp atraumatic Mouth: endotracheal tube in place and OG tube in place Eyes PERRL and EOMs intact bilaterally Neck supple General: trachea midline Chest inspection of chest normal Resp Auscultation: diminished lung sounds Cardio regular rate and regular rhythm GI normal to inspection, nondistended, normoactive bowel sounds Extremity no clubbing, cyanosis or edema Skin no rashes or lesions noted Neuro no focal motor deficits Sensorium / Orientation: sedated on vent Charges/Coding Procedures Hospitalists Procedures: [id number] Critial Care 1st Hr
[2021-08-13] MEDS: guaiFENesin 10 ML UDC (200MG/10ML) 20 ML GT ×3 (06:49→17:04)
[2021-08-13] MEDS: Menthol/Lanolin/Calamine/Znox 113 GM Tube 1 APPLIC TOPICAL ×3 (06:49→21:56)
[2021-08-13] MEDS: Ipratropium/Albuterol Sulfate 3 ML AMPUL.NEB INHALATION ×5 (07:07→22:57)
[2021-08-13 07:17] LABS: Differential Indicated SCAN CRITERIA MET
[2021-08-13] MEDS: Propofol 10MG/Ml 1,000 MG/100 ML Bottle 14.5 MG CONT INF ×3 (07:30→20:23)
[2021-08-13] MEDS: TITRATION PARAMETER CHANGE 1 EACH IV (07:43)
[2021-08-13] MEDS: Enoxaparin 30 MG/0.3 ML Syringe SC ×2 (08:25→21:57)
[2021-08-13] MEDS: Aspirin 325 MG Tablet GT (08:25)
[2021-08-13] MEDS: CHLORHEXIDINE GLUC 2% CLOTH 1 EACH TOWELETTE TOPICAL (08:26)
[2021-08-13] MEDS: 0.9% Saline Lock 10 ML Syringe IV (08:26)
[2021-08-13] MEDS: Famotidine 20 MG Tablet GT ×2 (08:26→21:57)
[2021-08-13] MEDS: Chlorhexidine 15 ML PO ×2 (08:26→21:56)
[2021-08-13] MEDS: levoFLOXacin IV 500 MG/100 ML BAG 100 MG IV (09:51)
[2021-08-13 10:35] LABS: Pathologist Review Reviewed
--- NOTE | 2021-08-13 13:20 | PN.HOSP_ITS ---
Subjective Subjective Patient seen and examined. He remains intubated an sedated. He apparently had some low grade fevers overnight. He is on FiO2 of 55% and PEEP of 10. Objective Data Objective Data Vital Signs: Vital Signs Temp Pulse Resp BP Pulse Ox 99.4 F H 85 18 101/64 92 08/13/21 12:00 08/13/21 12:00 08/13/21 12:00 08/13/21 12:00 08/13/21 12:00 Oxygen Flow Rate (L/min) 60 Oxygen Delivery Method Mechanical Ventilator Weight: 178 lb 2.136 oz Body Mass Index (BMI) 30.4 Intake & Output: Intake and Output for Last 24 Hours 08/11/21 08/12/21 08/13/21 23:59 23:59 23:59 Intake Total 1299.92 / 1417.66 2856.81 / 2983.61 1635.19 / 1635.19 Output Total 1485 / 1485 1070 / 1295 785 / 785 Balance -185.08 / -67.34 1786.81 / 1688.61 850.19 / 850.19 Medical Nutrition Assessment Dietitian: Malnutrition Criteria Met Start: 08/03/21 13:46 Freq: Status: Active Protocol: Document 08/13/21 10:41 YAEL (Rec: 08/13/21 10:41 YAEL [id number]) Nutrition Malnutrition Evidence of Malnutrition Exists Yes Malnutrition (severe): Acute Illness/Injury Evidenced By Suboptimal Energy Intake ( Severe),Weight Loss (Severe) Clinical Problem Acute Disease or Injury Related Malnutrition Etiology severe, acute malnutrition r/t inadequate energy intake d/t COVID-19 illness Signs/Symptoms as evidenced by unintentional wt loss of 11% since adm (08/02), estimated PO intake meeting <50% of estimated nutritional needs >1 week, NPO /intubation and need for enteral nutrition support Status Active Problem Recommendation Dietitian Recommendations/Changes NPO while intubated; As tolerated, continue Vital HP at 55mL/hour w/ 100mL H2O flush every 4 hours to provide 1320 calories, 115 g protein, and 1703mL fluid/day. As ordered, enteral nutrition support will meet 70% daily estimated calories, 100% daily estimated protein needs. Lab / Micro Data Result Diagrams: 08/13/21 04:20 08/13/21 04:20 Labs: Laboratory Results - last 24 hr 08/10/21 05:15: Diff Path Review Reviewed 08/13/21 04:20: WBC 12.9 H, RBC 4.18 L, Hgb 11.6 L, Hct 36.7 L, MCV 87.8, MCH 27.8, MCHC 31.6 L, RDW Std Deviation 42.2, RDW Coeff of Williams 13.2, Plt Count 327, MPV 10.1, Immature Gran % (Auto) 2.600 H, Neut % (Auto) 90.4 H, Lymph % (Auto) 4.0 L, Mcdonald % (Auto) 2.6, Eos % (Auto) 0.2, Baso % (Auto) 0.2, Absolute Neuts (auto) 11.7 H, Absolute Lymphs (auto) 0.52 L, Nucleated RBC % 0 08/13/21 04:20: Sodium 139, Potassium 3.7, Chloride 104, Carbon Dioxide 29.0, Anion Gap 6, BUN 22 H, Creatinine 0.54 L, Estim Creat Clear Calc 68.40, Est GFR (MDRD) Af Amer 192, Est GFR (MDRD) Non-Af 159, BUN/Creatinine Ratio 40.4 H, Gluc ose 103, Calcium 8.0 L, Total Bilirubin 0.30, AST 40 H, ALT 47, Alkaline Phosphatase 47, Total Protein 6.1 L, Albumin 1.8 L, Globulin 4.3 H, Albumin/Globulin Ratio 0.4 L Micro: Microbiology 08/10/21 15:30 Sputum, Induced/Lukens Gram Stain - Final 08/10/21 15:30 Sputum, Induced/Lukens Respiratory Culture - Final Klebsiella pneumoniae sp pneum 08/03/21 18:00 Blood Culture (Wb) - Anticubital Left Blood Culture - Final No growth in 5 days. 08/03/21 20:20 Blood Culture (Wb) - Right Hand Blood Culture - Final No growth in 5 days. 08/03/21 01:00 Sputum, Expectorated/Coughed Gram Stain - Final 08/03/21 01:00 Sputum, Expectorated/Coughed Respiratory Culture - Final Mixed normal respiratory christina. No Streptococcus pneumoniae, beta-hemolytic Streptococcus or Staphylococcus aureus isolated. 08/03/21 13:33 Urine, Clean Catch Legionella Antigen - Final 12/03/21 13:33 Urine, Clean Catch Streptococcus pneumoniae Antigen (M - Final Physical Exam Const Constitutional Narrative: intubated, sedated. RASS score is 0 Exam Limitations: altered mental status HEENT head/scalp atraumatic and moist oral mucous membranes Head and Scalp: normocephalic Eyes PERRL, EOMs intact bilaterally and conjunctivae normal Neck no lymphadenopathy Resp Resp Narrative: diminished breath sounds bibasally Cardio regular rate, regular rhythm, S1 normal heart sound, S2 normal heart sound and no murmurs GI normal to inspection, nondistended, normoactive bowel sounds, soft to palpation, non-tender, non-distended and hepatosplenomegaly Extremity normal to inspection Peripheral Pulses: Yes pulses 2+ throughout Skin no rashes or lesions noted Neuro Neuro Narrative: intubated, sedated, RASS score is -1 Assessment & Plan Assessment/Plan (1) Acute respiratory failure with hypoxia: (2) Pneumonia due to COVID-19 virus: (3) Severe malnutrition: (4) Hypokalemia: PLAN: #Acute hypoxic respiratory failure due to covid 19 pneumonia and Klebsiella pneumonia * on baricitinib, remdesivir and decadron * ID and pulmonology on board * titrate oxygen to maintain sats >90% * breathing treatment with bronchodilators * On IV Levaquin for Klebsiella pneumonia * diurese as needed * #Acute asthma exacerbation: resovled. #Hypokalemia: resolved. #Severe acute malnutrition * on tube feeding. * * GI prophylaxis: PPI DVT prophylaxis; lovenox Charges/Coding Visit Charges Inpatient E&M: 14091 [facility] Hosp L3
--- NOTE | 2021-08-13 14:03 | NURSING ---
MAR shows fentanyl infused, however still some remaining in bag, running at 125 mcg/hr
[2021-08-13] MEDS: Vital High Protein 1,000 ML 55 ML GT (21:57)
[2021-08-14] VITALS (38 sets, daily range): BP systolic 100–136; BP diastolic 51–88; PULSE 14–104; RESP 13–21; TEMP 37.2–38.4; O2SAT 89–96
[2021-08-14] MEDS: guaiFENesin 10 ML UDC (200MG/10ML) 20 ML GT ×4 (00:07→16:03)
[2021-08-14] MEDS: CHLORHEXIDINE GLUC 2% CLOTH 1 EACH TOWELETTE TOPICAL (00:34)
[2021-08-14] MEDS: Propofol 10MG/Ml 1,000 MG/100 ML Bottle 14.5 MG CONT INF (00:34)
[2021-08-14] MEDS: Acetaminophen 650 MG/20 ML UDC PO ×2 (04:05→21:07)
[2021-08-14] MEDS: TITRATION PARAMETER CHANGE 1 EACH IV (05:33)
--- NOTE | 2021-08-14 06:19 | PN.CC_ITS ---
Assessment & Plan Assessment/Plan (1) Acute respiratory failure with hypoxia: (2) Pneumonia due to COVID-19 virus: PLAN: RECOMMENDATIONS: 1. Continue to wean FiO2 to maintain oxygen saturations at or above 90%. 2. Continue antimicrobials to complete 7-day treatment course. 3. Continue baricitinib to complete treatment course. 4. Continue prophylactic Lovenox. 5. Continue appropriate GI prophylaxis. 6. Diuretics, as needed, to maintain euvolemic state. 7. Tube feeds as tolerated. IMPRESSIONS: 1. Acute hypoxemic respiratory failure secondary to COVID-19 pneumonia The patient initially presented to the hospital with worsening shortness of breath and hypoxemia. The patient has completed a course of remdesivir. The patient remains on Decadron and baricitinib to complete their courses. Ultimately, the patient continued to decompensate from a respiratory perspective and had to be intubated on August 10. Sputum culture was positive for Klebsiella, which is currently being addressed with antimicrobial therapy. Antibiotics will be continued to complete a 7-day treatment course. In the interim, we will continue to wean FiO2 and PEEP as tolerated for saturations greater than 90%. Diuretics will be utilized as needed to maintain euvolemic state. Continue tube feeds as tolerated. Continue appropriate GI and DVT prophylaxis. 2. Obesity/hypertension/self-reported asthma/prior CVA Complicates care, management, recovery and prognosis. Continue home medications as indicated. Continue nutritional support via tube feeds and physical therapy as tolerated. TIME: 33 minutes of critical care time, independent of procedures, was spent addressing the patient's acute hypoxemic respiratory failure secondary to COVID- 19 pneumonia, review of all data and collaboration with care team. Subjective Subjective The patient was seen and examined at the bedside this morning. Events from the last 24 hours have been reviewed. The patient continues to have low-grade fevers but remains hemodynamically stable. The patient is currently on assist control mode of mechanical ventilation with an FiO2 requirement of 65% and PEEP of 8. He is sedated on fentanyl and propofol. Nevertheless, the patient is alert and able to follow commands. He is currently tolerating tube feeds. He is yet to have a bowel movement. The patient is documented to be overall net - 2.5 L for the hospitalization. The patient remains on Levaquin, prophylactic Lovenox and baricitinib. The patient has completed treatment courses of remdesivir and Decadron. Objective Data Objective Data The patient's most recent lab work, culture data and imaging studies have all been personally reviewed. Sputum culture dated August 10 was positive for Klebsiella pneumoniae. Vital Signs: Vital Signs Temp Pulse Resp BP Pulse Ox 100.4 F H 88 15 100/55 L 90 08/14/21 05:00 08/14/21 05:00 08/14/21 05:00 08/14/21 05:00 08/14/21 05:00 Oxygen Flow Rate (L/min) 60 Oxygen Delivery Method Mechanical Ventilator Weight: 81.1 kg Body Mass Index (BMI) 30.4 Intake & Output: Intake and Output for Last 24 Hours 08/12/21 08/13/21 08/14/21 23:59 23:59 23:59 Intake Total 2856.81 / 2983.61 2522.36 / 2636.86 342.73 / 342.73 Output Total 1070 / 1295 1060 / 1360 300 / 300 Balance 1786.81 / 1688.61 1462.36 / 1276.86 42.73 / 42.73 Medical Nutrition Assessment Dietitian: Malnutrition Criteria Met Start: 08/03/21 13:46 Freq: Status: Active Protocol: Document 08/13/21 10:41 YAEL (Rec: 08/13/21 10:41 YAEL [id number]) Nutrition Malnutrition Evidence of Malnutrition Exists Yes Malnutrition (severe): Acute Illness/Injury Evidenced By Suboptimal Energy Intake ( Severe),Weight Loss (Severe) Clinical Problem Acute Disease or Injury Related Malnutrition Etiology severe, acute malnutrition r/t inadequate energy intake d/t COVID-19 illness Signs/Symptoms as evidenced by unintentional wt loss of 11% since adm (08/02), estimated PO intake meeting <50% of estimated nutritional needs >1 week, NPO /intubation and need for enteral nutrition support Status Active Problem Recommendation Dietitian Recommendations/Changes NPO while intubated; As tolerated, continue Vital HP at 55mL/hour w/ 100mL H2O flush every 4 hours to provide 1320 calories, 115 g protein, and 1703mL fluid/day. As ordered, enteral nutrition support will meet 70% daily estimated calories, 100% daily estimated protein needs. Lab / Micro Data Attestation: I reviewed the patient's lab results. Result Diagrams: 08/14/21 03:57 08/14/21 03:57 Labs: Laboratory Results - last 24 hr 08/10/21 05:15: Diff Path Review Reviewed 08/13/21 04:20: WBC 12.9 H, RBC 4.18 L, Hgb 11.6 L, Hct 36.7 L, MCV 87.8, MCH 27.8, MCHC 31.6 L, RDW Std Deviation 42.2, RDW Coeff of Williams 13.2, Plt Count 327, MPV 10.1, Immature Gran % (Auto) 2.600 H, Neut % (Auto) 90.4 H, Lymph % (Auto) 4.0 L, Lane % (Auto) 2.6, Eos % (Auto) 0.2, Baso % (Auto) 0.2, Absolute Neuts (auto) 11.7 H, Absolute Lymphs (auto) 0.52 L, Nucleated RBC % 0 Micro: Microbiology 08/10/21 15:30 Sputum, Induced/Lukens Gram Stain - Final 08/10/21 15:30 Sputum, Induced/Lukens Respiratory Culture - Final Klebsiella pneumoniae sp pneum 08/03/21 18:00 Blood Culture (Wb) - Anticubital Left Blood Culture - Final No growth in 5 days. 08/03/21 20:20 Blood Culture (Wb) - Right Hand Blood Culture - Final No growth in 5 days. 08/03/21 01:00 Sputum, Expectorated/Coughed Gram Stain - Final 08/03/21 01:00 Sputum, Expectorated/Coughed Respiratory Culture - Final Mixed normal respiratory christina. No Streptococcus pneumoniae, beta-hemolytic Streptococcus or Staphylococcus aureus isolated. 08/03/21 13:33 Urine, Clean Catch Legionella Antigen - Final 08/03/21 13:33 Urine, Clean Catch Streptococcus pneumoniae Antigen (M - Final Physical Exam Const alert and no apparent distress General Appearance: intubated and patient mechanically ventilated HEENT normocephalic and head/scalp atraumatic Mouth: endotracheal tube in place and OG tube in place Eyes PERRL and EOMs intact bilaterally Neck supple General: trachea midline Chest inspection of chest normal Resp Auscultation: diminished lung sounds Cardio regular rate and regular rhythm GI normal to inspection, nondistended, normoactive bowel sounds Extremity no clubbing, cyanosis or edema Skin no rashes or lesions noted Neuro no focal motor deficits Sensorium / Orientation: sedated on vent Charges/Coding Procedures Hospitalists Procedures: [id number] Critial Care 1st Hr
[2021-08-14 06:40] LABS: Absolute Lymphocyte Count 0.49 X10^3/uL (0.83-4.51); Absolute Neutrophil Count 11.8 X10^3/uL (2.0-7.7); Basophil# 0.04 X10^3/uL; Basophil% 0.3 % (0-1); Eosinophil# 0.02 X10^3/uL; Eosinophils% 0.2 % (0-5); Hematocrit 34.6 % (40-54); Lymphocyte # 0.49 X10^3/ul (0.83-4.51); Lymphocyte % 3.8 % (19-41); Mean Corp Hgb Conc 31.8 g/dL (32-36); Mean Platelet Vol. 10.1 fl (6.2-12.0); Monocyte# 0.36 X10^3/uL; Monocyte% 2.8 % (0-10); NRBC Flagged by Analyzer 0 % (0-5); Neutrophil % 90.9 % (47-70); POSITIVE DIFFERENTIAL YES; Platelet Count 295 K/mm3 (150-450); RBC Distribution Width CV 13.2 % (11.6-14.6); RBC Distribution Width SD 42.3 fl (35.1-43.9); Red Blood Count 3.93 M/mm3 (4.6-6.2)
[2021-08-14 06:43] LABS: Differential Indicated SCAN CRITERIA MET
[2021-08-14] MEDS: Ipratropium/Albuterol Sulfate 3 ML AMPUL.NEB INHALATION ×5 (06:49→23:12)
[2021-08-14 06:52] LABS: ALB/GLOB Ratio 0.4 RATIO (0.9-2.4); AST(SGOT) 61 U/L (15-37); Alanine Aminotransfer ALT/SGPT 69 U/L (16-61); Albumin, Serum 1.6 g/dL (3.2-5.0); Alkaline Phosphatase 50 U/L (45-117); Anion Gap 4 (5-15); BUN 20 mg/dL (7-18); BUN/Creat Ratio 41.8 RATIO (10-20); Calcium,Total 8.3 mg/dL (8.5-10.1); Chloride 104 mmol/L (98-107); Creatinine, Serum 0.48 mg/dL (0.70-1.30); EST Glomerular Filtration Rate 185 mL/min (>60); Est Glom Filt Rate - Afr Amer 223 mL/min (>60); Globulin 4.2 g/dL (2.2-4.2); Glucose 105 mg/dL (74-106); Potassium 3.6 mmol/L (3.5-5.1); Protein, Total 5.8 g/dL (6.4-8.2); Sodium Level 139 mmol/L (136-145)
[2021-08-14] MEDS: Menthol/Lanolin/Calamine/Znox 113 GM Tube 1 APPLIC TOPICAL ×3 (06:57→21:08)
[2021-08-14] MEDS: Propofol 10MG/Ml 1,000 MG/100 ML Bottle 14.6 MG CONT INF (07:44)
[2021-08-14] MEDS: Enoxaparin 30 MG/0.3 ML Syringe SC ×2 (08:00→21:08)
[2021-08-14] MEDS: levoFLOXacin IV 500 MG/100 ML BAG 100 MG IV (08:00)
[2021-08-14] MEDS: Aspirin 325 MG Tablet GT (08:00)
[2021-08-14] MEDS: Chlorhexidine 15 ML PO ×2 (08:00→21:08)
[2021-08-14] MEDS: Famotidine 20 MG Tablet GT ×2 (08:00→23:14)
--- NOTE | 2021-08-14 10:23 | CM.UR ---
Social Work SW participated in ICU rounds. SW called to offer support. Erin is getting over COVID herself. She explains was at [facility] main [place] last week from Friday to Friday. She and pt both went and she got admitted, he was sent home. In speaking w/pt when he was home and she was in the hospital, she knew he was not managing well. She states he fell, and he didn't seem to understand fully what was going on, she attributes this to low oxygen levels. She states on last Friday after she got home, she measured her 's O2 and it was 75, so she called the squad. She states that they have been for 47 years. She spoke about their daily routine and that it's been difficult for her, especially in the evenings as this is when they spend a lot of time together. She states she wants to see pt but cannot come visit as she is quarantined until the . Their daughter was going to come in, but she has a cold. She states that there isn't anybody else who can come in to visit. also spoke about paying bills, she is trying to figure it out as pt always does it. We talked through a few ideas on how to bet the bills paid in a timely manner. Support given to . did speak w/RN, and is appreciative of the daily updates. SW did speak to about plans from the hospital should the pt survive this. is already aware that pt will likely need to go somewhere for rehab from here. SW will continue to follow and let know SW available every day during the week should she need to talk through anything else. states understanding. Plan: TBD, likely placement, level of care to be determined JERMAINE Jacobo
[2021-08-14] MEDS: Senna/Docusate Sodium 1 Tablet 2 TABLET GT (10:37)
[2021-08-14] MEDS: Propofol 10MG/Ml 1,000 MG/100 ML Bottle 12.2 MG CONT INF ×2 (13:30→21:21)
--- NOTE | 2021-08-14 13:49 | PN.HOSP_ITS ---
Subjective Subjective Patient seen and examined. He remains intubated and sedated. RASS score is -4. He is noted to have a low-grade fever of 99.5 Fahrenheit. He is in cumulative negative balance by 1 L. Objective Data Objective Data Vital Signs: Vital Signs Temp Pulse Resp BP Pulse Ox 99.5 F H 84 14 108/58 L 93 08/14/21 13:00 08/14/21 13:00 08/14/21 13:00 08/14/21 13:00 08/14/21 13:00 Oxygen Flow Rate (L/min) 60 Oxygen Delivery Method Mechanical Ventilator Weight: 178 lb 12.718 oz Body Mass Index (BMI) 30.4 Intake & Output: Intake and Output for Last 24 Hours 08/12/21 08/13/21 08/14/21 23:59 23:59 23:59 Intake Total 2856.81 / 2983.61 2522.36 / 2636.86 2355.54 / 2355.54 Output Total 1070 / 1295 1060 / 1360 825 / 825 Balance 1786.81 / 1688.61 1462.36 / 1276.86 1530.54 / 1530.54 Medical Nutrition Assessment Dietitian: Malnutrition Criteria Met Start: 08/03/21 13:46 Freq: Status: Active Protocol: Document 08/13/21 10:41 YAEL (Rec: 08/13/21 10:41 YAEL [id number]) Nutrition Malnutrition Evidence of Malnutrition Exists Yes Malnutrition (severe): Acute Illness/Injury Evidenced By Suboptimal Energy Intake ( Severe),Weight Loss (Severe) Clinical Problem Acute Disease or Injury Related Malnutrition Etiology severe, acute malnutrition r/t inadequate energy intake d/t COVID-19 illness Signs/Symptoms as evidenced by unintentional wt loss of 11% since adm (08/02), estimated PO intake meeting <50% of estimated nutritional needs >1 week, NPO /intubation and need for enteral nutrition support Status Active Problem Recommendation Dietitian Recommendations/Changes NPO while intubated; As tolerated, continue Vital HP at 55mL/hour w/ 100mL H2O flush every 4 hours to provide 1320 calories, 115 g protein, and 1703mL fluid/day. As ordered, enteral nutrition support will meet 70% daily estimated calories, 100% daily estimated protein needs. Lab / Micro Data Result Diagrams: 08/14/21 03:57 08/14/21 03:57 Labs: Laboratory Results - last 24 hr 08/14/21 03:57: WBC 13.0 H, RBC 3.93 L, Hgb 11.0 L, Hct 34.6 L, MCV 88.0, MCH 28.0, MCHC 31.8 L, RDW Std Deviation 42.3, RDW Coeff of Williams 13.2, Plt Count 295, MPV 10.1, Immature Gran % (Auto) 2.000 H, Neut % (Auto) 90.9 H, Lymph % (Auto) 3.8 L, Luce % (Auto) 2.8, Eos % (Auto) 0.2, Baso % (Auto) 0.3, Absolute Neuts (auto) 11.8 H, Absolute Lymphs (auto) 0.49 L, Nucleated RBC % 0 08/14/21 03:57: Sodium 139, Potassium 3.6, Chloride 104, Carbon Dioxide 31.0, Anion Gap 4 L, BUN 20 H, Creatinine 0.48 L, Estim Creat Clear Calc 68.40, Est GFR (MDRD) Af Amer 223, Est GFR (MDRD) Non-Af 185, BUN/Creatinine Ratio 41.8 H, Glucose 105, Calcium 8.3 L, Total Bilirubin 0.40, AST 61 H, ALT 69 H, Alkaline Phosphatase 50, Total Protein 5.8 L, Albumin 1.6 L, Globulin 4.2, Albumin/Globulin Ratio 0.4 L Micro: Microbiology 08/10/21 15:30 Sputum, Induced/Lukens Gram Stain - Final 08/10/21 15:30 Sputum, Induced/Lukens Respiratory Culture - Final Klebsiella pneumoniae sp pneum 08/03/21 18:00 Blood Culture (Wb) - Anticubital Left Blood Culture - Final No growth in 5 days. 08/03/21 20:20 Blood Culture (Wb) - Right Hand Blood Culture - Final No growth in 5 days. 08/03/21 01:00 Sputum, Expectorated/Coughed Gram Stain - Final 08/03/21 01:00 Sputum, Expectorated/Coughed Respiratory Culture - Final Mixed normal respiratory christina. No Streptococcus pneumoniae, beta-hemolytic Streptococcus or Staphylococcus aureus isolated. 08/03/21 13:33 Urine, Clean Catch Legionella Antigen - Final 08/03/21 13:33 Urine, Clean Catch Streptococcus pneumoniae Antigen (M - Final Physical Exam Const alert and oriented x3 Constitutional Narrative: intubated, sedated. RASS score is 0 General Appearance: cooperative Exam Limitations: altered mental status HEENT normocephalic, head/scalp atraumatic and moist oral mucous membranes Eyes PERRL, EOMs intact bilaterally and conjunctivae normal Neck no lymphadenopathy and no JVD Resp Resp Narrative: diminished breath sounds bibasally. Intubated, sedated. Cardio regular rate, regular rhythm, S1 normal heart sound, S2 normal heart sound and no murmurs GI normal to inspection, nondistended, normoactive bowel sounds, soft to palpation, non-tender, non-distended and hepatosplenomegaly Extremity normal to inspection and no clubbing, cyanosis or edema Peripheral Pulses: Yes pulses 2+ throughout Skin no rashes or lesions noted Neuro Neuro Narrative: intubated, sedated, RASS score is -4 Psych Psych Narrative: intubated and sedated Assessment & Plan Assessment/Plan (1) Acute respiratory failure with hypoxia: (2) Pneumonia due to COVID-19 virus: (3) Severe malnutrition: (4) Hypokalemia: PLAN: #Acute hypoxic respiratory failure due to covid 19 pneumonia and Klebsiella pneumonia * on baricitinib, remdesivir and decadron * ID and pulmonology on board * titrate oxygen to maintain sats >90% * breathing treatment with bronchodilators * On IV Levaquin for Klebsiella pneumonia * diurese as needed * #Acute asthma exacerbation: resolved. #Hypokalemia: resolved. #Severe acute malnutrition * on tube feeding. * GI prophylaxis: PPI DVT prophylaxis: lovenox Charges/Coding Visit Charges Inpatient E&M: 22264 Subs Hosp L3
[2021-08-14] MEDS: Vital High Protein 1,000 ML 55 ML GT (16:03)
[2021-08-14] MEDS: 0.9% Saline Lock 10 ML Syringe IV (21:08)
[2021-08-15] VITALS (35 sets, daily range): BP systolic 97–148; BP diastolic 53–84; PULSE 87–111; RESP 13–26; TEMP 36.8–37.8; O2SAT 87–95
[2021-08-15] MEDS: guaiFENesin 10 ML UDC (200MG/10ML) 20 ML GT ×4 (00:26→21:12)
[2021-08-15] MEDS: Ipratropium/Albuterol Sulfate 3 ML AMPUL.NEB INHALATION ×5 (02:31→22:15)
[2021-08-15 03:31] LABS: Absolute Neutrophil Count 11.2 X10^3/uL (2.0-7.7); Basophil# 0.03 X10^3/uL; Basophil% 0.2 % (0-1); Eosinophil# 0.04 X10^3/uL; Eosinophils% 0.3 % (0-5); Hematocrit 35.8 % (40-54); Hemoglobin 11.6 g/dL (13.0-16.5); Lymphocyte % 3.2 % (19-41); Mean Corp Hgb Conc 32.4 g/dL (32-36); Mean Corpuscular Hgb 28.6 pg (27.0-32.0); Mean Corpuscular Volume 88.2 fL (80-94); Mean Platelet Vol. 9.6 fl (6.2-12.0); Monocyte# 0.43 X10^3/uL; Monocyte% 3.5 % (0-10); NRBC Flagged by Analyzer 0 % (0-5); Neutrophil # 11.15 X10^3/uL (2.7-7.7); Neutrophil % 90.3 % (47-70); POSITIVE DIFFERENTIAL YES; Platelet Count 314 K/mm3 (150-450); RBC Distribution Width CV 13.4 % (11.6-14.6); RBC Distribution Width SD 42.7 fl (35.1-43.9); Red Blood Count 4.06 M/mm3 (4.6-6.2); White Blood Count 12.4 K/mm3 (4.4-11.0)
[2021-08-15 03:33] LABS: Differential Indicated SCAN CRITERIA MET
[2021-08-15 04:00] LABS: ALB/GLOB Ratio 0.3 RATIO (0.9-2.4); AST(SGOT) 46 U/L (15-37); Alanine Aminotransfer ALT/SGPT 70 U/L (16-61); Albumin, Serum 1.5 g/dL (3.2-5.0); Alkaline Phosphatase 55 U/L (45-117); Anion Gap 5 (5-15); BUN 21 mg/dL (7-18); BUN/Creat Ratio 45.2 RATIO (10-20); Calcium,Total 8.2 mg/dL (8.5-10.1); Chloride 103 mmol/L (98-107); Creatinine, Serum 0.46 mg/dL (0.70-1.30); EST Glomerular Filtration Rate 191 mL/min (>60); Est Glom Filt Rate - Afr Amer 231 mL/min (>60); Globulin 4.6 g/dL (2.2-4.2); Glucose 111 mg/dL (74-106); Potassium 3.9 mmol/L (3.5-5.1); Protein, Total 6.1 g/dL (6.4-8.2); Sodium Level 140 mmol/L (136-145)
[2021-08-15] MEDS: Propofol 10MG/Ml 1,000 MG/100 ML Bottle 9.7 MG CONT INF ×2 (05:22→14:39)
--- NOTE | 2021-08-15 06:18 | PN.CC_ITS ---
Assessment & Plan Assessment/Plan (1) Acute respiratory failure with hypoxia: (2) Pneumonia due to COVID-19 virus: PLAN: RECOMMENDATIONS: 1. Continue to wean FiO2 to maintain oxygen saturations at or above 90%. 2. Continue antimicrobials to complete 7-day treatment course. 3. Continue baricitinib to complete treatment course. 4. Continue prophylactic Lovenox. 5. Continue appropriate GI prophylaxis. 6. Diuretics, as needed, to maintain euvolemic state. Will place on 40 mg IV BID today. 7. Tube feeds as tolerated. IMPRESSIONS: 1. Acute hypoxemic respiratory failure secondary to COVID-19 pneumonia The patient initially presented to the hospital with worsening shortness of breath and hypoxemia. The patient has completed treatment courses of remdesivir and decadron. The patient remains on baricitinib. Ultimately, the patient continued to decompensate from a respiratory perspective and had to be intubated on August 10. Sputum culture was positive for Klebsiella, which is currently being addressed with antimicrobial therapy. Antibiotics will be continued to complete a 7-day treatment course. In the interim, we will continue to wean FiO2 and PEEP as tolerated for saturations greater than 90%. Diuretics will be utilized as needed to maintain euvolemic state. Continue tube feeds as tolerated. Continue appropriate GI and DVT prophylaxis. 2. Obesity/hypertension/self-reported asthma/prior CVA Complicates care, management, recovery and prognosis. Continue home medications as indicated. Continue nutritional support via tube feeds and physical therapy as tolerated. TIME: 34 minutes of critical care time, independent of procedures, was spent addressi ng the patient's acute hypoxemic respiratory failure secondary to COVID-19 pneumonia, review of all data and collaboration with care team. Subjective Subjective The patient was seen and examined at the bedside this morning. Events from the last 24 hours have been reviewed. The patient continues to have low-grade fevers but remains hemodynamically stable. The patient is currently on assist control mode of mechanical ventilation with an FiO2 requirement of 70% and PEEP of 8. He is sedated on fentanyl and propofol. He is currently tolerating tube feeds. The patient is documented to be overall net even for the [facility]. Liver and renal function are stable. The patient remains on Levaquin, prophylactic Lovenox and baricitinib. The patient has completed his 10-day course of Decadron. Thick secretions were noted from his endotracheal tube by the overnight nursing staff. Objective Data Objective Data The patient's most recent lab work, culture data and imaging studies have all been personally reviewed. Sputum culture dated August 10 was positive for Klebsiella pneumoniae. Vital Signs: Vital Signs Temp Pulse Resp BP Pulse Ox 98.4 F 105 H 26 H 126/72 H 91 08/15/21 04:00 08/15/21 04:57 08/15/21 04:57 08/15/21 04:00 08/15/21 04:57 Oxygen Flow Rate (L/min) 60 Oxygen Delivery Method Mechanical Ventilator Weight: 81.5 kg Body Mass Index (BMI) 30.4 Intake & Output: Intake and Output for Last 24 Hours 08/13/21 08/14/21 08/15/21 23:59 23:59 23:59 Intake Total 2522.36 / 2636.86 3236.98 / 3261.68 592.59 / 592.59 Output Total 1060 / 1360 1375 / 1375 Balance 1462.36 / 1276.86 1861.98 / 1886.68 592.59 / 592.59 Medical Nutrition Assessment Dietitian: Malnutrition Criteria Met Start: 08/03/21 13:46 Freq: Status: Active Protocol: Document 08/13/21 10:41 YAEL (Rec: 08/13/21 10:41 YAEL [id number]) Nutrition Malnutrition Evidence of Malnutrition Exists Yes Malnutrition (severe): Acute Illness/Injury Evidenced By Suboptimal Energy Intake ( Severe),Weight Loss (Severe) Clinical Problem Acute Disease or Injury Related Malnutrition Etiology severe, acute malnutrition r/t inadequate energy intake d/t COVID-19 illness Signs/Symptoms as evidenced by unintentional wt loss of 11% since adm (08/02), estimated PO intake meeting <50% of estimated nutritional needs >1 week, NPO /intubation and need for enteral nutrition support Status Active Problem Recommendation Dietitian Recommendations/Changes NPO while intubated; As tolerated, continue Vital HP at 55mL/hour w/ 100mL H2O flush every 4 hours to provide 1320 calories, 115 g protein, and 1703mL fluid/day. As ordered, enteral nutrition support will meet 70% daily estimated calories, 100% daily estimated protein needs. Lab / Micro Data Attestation: I reviewed the patient's lab results. Result Diagrams: 08/15/21 03:20 08/15/21 03:20 Labs: Laboratory Results - last 24 hr 08/14/21 03:57: WBC 13.0 H, RBC 3.93 L, Hgb 11.0 L, Hct 34.6 L, MCV 88.0, MCH 28.0, MCHC 31.8 L, RDW Std Deviation 42.3, RDW Coeff of Williams 13.2, Plt Count 295, MPV 10.1, Immature Gran % (Auto) 2.000 H, Neut % (Auto) 90.9 H, Lymph % (Auto) 3.8 L, Wheeler % (Auto) 2.8, Eos % (Auto) 0.2, Baso % (Auto) 0.3, Absolute Neuts (auto) 11.8 H, Absolute Lymphs (auto) 0.49 L, Nucleated RBC % 0 08/14/21 03:57: Sodium 139, Potassium 3.6, Chloride 104, Carbon Dioxide 31.0, Anion Gap 4 L, BUN 20 H, Creatinine 0.48 L, Estim Creat Clear Calc 68.40, Est GFR (MDRD) Af Amer 223, Est GFR (MDRD) Non-Af 185, BUN/Creatinine Ratio 41.8 H, Glucose 105, Calcium 8.3 L, Total Bilirubin 0.40, AST 61 H, ALT 69 H, Alkaline Phosphatase 50, Total Protein 5.8 L, Albumin 1.6 L, Globulin 4.2, Albumin/Globulin Ratio 0.4 L 08/15/21 03:20: WBC 12.4 H, RBC 4.06 L, Hgb 11.6 L, Hct 35.8 L, MCV 88.2, MCH 28.6, MCHC 32.4, RDW Std Deviation 42.7, RDW Coeff of Williams 13.4, Plt Count 314, MPV 9.6, Immature Gran % (Auto) 2.500 H, Neut % (Auto) 90.3 H, Lymph % (Auto) 3.2 L, Wheeler % (Auto) 3.5, Eos % (Auto) 0.3, Baso % (Auto) 0.2, Absolute Neuts (auto) 11.2 H, Absolute Lymphs (auto) 0.40 L, Nucleated RBC % 0 08/15/21 03:20: Sodium 140, Potassium 3.9, Chloride 103, Carbon Dioxide 32.0, Anion Gap 5, BUN 21 H, Creatinine 0.46 L, Estim Creat Clear Calc 68.40, Est GFR (MDRD) Af Amer 231, Est GFR (MDRD) Non-Af 191, BUN/Creatinine Ratio 45.2 H, Glucose 111 H, Calcium 8.2 L, Total Bilirubin 0.40, AST 46 H, ALT 70 H, Alkaline Phosphatase 55, Total Protein 6.1 L, Albumin 1.5 L, Globulin 4.6 H, Albumin/Globulin Ratio 0.3 L Micro: Microbiology 08/10/21 15:30 Sputum, Induced/Lukens Gram Stain - Final 08/10/21 15:30 Sputum, Induced/Lukens Respiratory Culture - Final Klebsiella pneumoniae sp pneum 08/03/21 18:00 Blood Culture (Wb) - Anticubital Left Blood Culture - Final No growth in 5 days. 08/03/21 20:20 Blood Culture (Wb) - Right Hand Blood Culture - Final No growth in 5 days. 08/03/21 01:00 Sputum, Expectorated/Coughed Gram Stain - Final 08/03/21 01:00 Sputum, Expectorated/Coughed Respiratory Culture - Final Mixed normal respiratory christina. No Streptococcus pneumoniae, beta-hemolytic Streptococcus or Staphylococcus aureus isolated. 08/03/21 13:33 Urine, Clean Catch Legionella Antigen - Final 08/03/21 13:33 Urine, Clean Catch Streptococcus pneumoniae Antigen (M - Final Physical Exam Const alert and no apparent distress General Appearance: intubated and patient mechanically ventilated HEENT normocephalic and head/scalp atraumatic Mouth: endotracheal tube in place and OG tube in place Eyes PERRL and EOMs intact bilaterally Neck supple General: trachea midline Chest inspection of chest normal Resp Auscultation: rhonchi and diminished lung sounds Cardio regular rate and regular rhythm GI normal to inspection, nondistended, normoactive bowel sounds Extremity no clubbing, cyanosis or edema Skin no rashes or lesions noted Neuro no focal motor deficits Sensorium / Orientation: sedated on vent Charges/Coding Procedures Hospitalists Procedures: 05864 Critial Care 1st Hr
[2021-08-15] MEDS: Enoxaparin 30 MG/0.3 ML Syringe SC ×2 (08:01→21:12)
[2021-08-15] MEDS: Furosemide 40 MG/4 ML Vial IV ×2 (08:02→18:00)
[2021-08-15] MEDS: Aspirin 325 MG Tablet GT (08:02)
[2021-08-15] MEDS: levoFLOXacin IV 500 MG/100 ML BAG 100 MG IV (08:02)
[2021-08-15] MEDS: Famotidine 20 MG Tablet GT ×2 (08:02→21:13)
[2021-08-15] MEDS: Chlorhexidine 15 ML PO ×2 (08:02→21:11)
[2021-08-15] MEDS: CHLORHEXIDINE GLUC 2% CLOTH 1 EACH TOWELETTE TOPICAL (08:02)
[2021-08-15] MEDS: Senna/Docusate Sodium 1 Tablet 2 TABLET GT (08:03)
[2021-08-15] MEDS: 0.9% Saline Lock 10 ML Syringe IV ×2 (08:03→21:13)
--- NOTE | 2021-08-15 09:30 | RAD_ITS ---
STUDY: X-RAY CHEST REASON FOR EXAM: Male, 66 years old. Dyspnea TECHNIQUE: Single AP portable view of the chest. COMPARISON: Comparison is made with prior study of 08/10/2021 at 3:32 PM. FINDINGS: An endotracheal tube is in situ. The tip is at 1.6 cm proximal to the li. An orogastric tube is seen with the tip in the body of the stomach. Since prior study, there has been progressive pulmonary infiltrate in the left lower lobe. Stable infiltrate in the right lower lobe. Blunting of the costophrenic angles bilaterally. Normal size heart. Normal mediastinum and jesus. Normal visualized pulmonary arteries. Normal visualized aortic arch and descending thoracic aorta. There are diffuse degenerative changes of the visualized thoracic spine. Normal visualized ribs, clavicles, and shoulders. There is no demonstrated abnormality of the visualized soft tissue structures of the upper abdomen. RAD/Chest 1 View (Portable) IMPRESSION: Progressive left lower lobe pulmonary infiltrate. The tip of the endotracheal tube is at 1.6 cm proximal to the li. Electronically Signed: Mark Chung MD at 9:50 EST , Service support ,
[2021-08-15] MEDS: Polyethylene Glycol 3350 17 GM PACKET GT (10:10)
[2021-08-15] MEDS: Vital High Protein 1,000 ML 55 ML GT (10:10)
[2021-08-15] MEDS: Menthol/Lanolin/Calamine/Znox 113 GM Tube 1 APPLIC TOPICAL ×2 (10:11→21:12)
--- NOTE | 2021-08-15 11:11 | NURSING ---
MAR shows fentanyl infused, still some remaining in current bag, running at 125 mcg/hr
--- NOTE | 2021-08-15 11:17 | WOUNDNOTE ---
wound photo: sacrum
--- NOTE | 2021-08-15 13:19 | PN.HOSP_ITS ---
Subjective Subjective Patient seen and examined. He remains intubated and sedated. Does have a mild low-grade fever today of 99.2 Fahrenheit. Objective Data Objective Data Vital Signs: Vital Signs Temp Pulse Resp BP Pulse Ox 99.2 F H 99 16 124/70 H 92 08/15/21 12:00 08/15/21 12:00 08/15/21 12:00 08/15/21 12:00 08/15/21 12:00 Oxygen Flow Rate (L/min) 60 Oxygen Delivery Method Mechanical Ventilator Weight: 179 lb 10.828 oz Body Mass Index (BMI) 30.4 Intake & Output: Intake and Output for Last 24 Hours 08/13/21 08/14/21 08/15/21 23:59 23:59 23:59 Intake Total 2522.36 / 2636.86 3236.98 / 3261.68 1973.69 / 1973.69 Output Total 1060 / 1360 1375 / 1375 1600 / 1600 Balance 1462.36 / 1276.86 1861.98 / 1886.68 373.69 / 373.69 Medical Nutrition Assessment Dietitian: Malnutrition Criteria Met Start: 08/03/21 13:46 Freq: Status: Active Protocol: Document 08/13/21 10:41 YAEL (Rec: 08/13/21 10:41 YAEL [id number]) Nutrition Malnutrition Evidence of Malnutrition Exists Yes Malnutrition (severe): Acute Illness/Injury Evidenced By Suboptimal Energy Intake ( Severe),Weight Loss (Severe) Clinical Problem Acute Disease or Injury Related Malnutrition Etiology severe, acute malnutrition r/t inadequate energy intake d/t COVID-19 illness Signs/Symptoms as evidenced by unintentional wt loss of 11% since adm (08/02), estimated PO intake meeting <50% of estimated nutritional needs >1 week, NPO /intubation and need for enteral nutrition support Status Active Problem Recommendation Dietitian Recommendations/Changes NPO while intubated; As tolerated, continue Vital HP at 55mL/hour w/ 100mL H2O flush every 4 hours to provide 1320 calories, 115 g protein, and 1703mL fluid/day. As ordered, enteral nutrition support will meet 70% daily estimated calories, 100% daily estimated protein needs. Lab / Micro Data Result Diagrams: 08/15/21 03:20 08/15/21 03:20 Labs: Laboratory Results - last 24 hr 08/15/21 03:20: WBC 12.4 H, RBC 4.06 L, Hgb 11.6 L, Hct 35.8 L, MCV 88.2, MCH 28.6, MCHC 32.4, RDW Std Deviation 42.7, RDW Coeff of Williams 13.4, Plt Count 314, MPV 9.6, Immature Gran % (Auto) 2.500 H, Neut % (Auto) 90.3 H, Lymph % (Auto) 3.2 L, [place] % (Auto) 3.5, Eos % (Auto) 0.3, Baso % (Auto) 0.2, Absolute Neuts (auto) 11.2 H, Absolute Lymphs (auto) 0.40 L, Nucleated RBC % 0 08/15/21 03:20: Sodium 140, Potassium 3.9, Chloride 103, Carbon Dioxide 32.0, Anion Gap 5, BUN 21 H, Creatinine 0.46 L, Estim Creat Clear Calc 68.40, Est GFR (MDRD) Af Amer 231, Est GFR (MDRD) Non-Af 191, BUN/Creatinine Ratio 45.2 H, Glucose 111 H, Calcium 8.2 L, Total Bilirubin 0.40, AST 46 H, ALT 70 H, Alkaline Phosphatase 55, Total Protein 6.1 L, Albumin 1.5 L, Globulin 4.6 H, Albumin/Globulin Ratio 0.3 L Micro: Microbiology 08/10/21 15:30 Sputum, Induced/Lukens Gram Stain - Final 08/10/21 15:30 Sputum, Induced/Lukens Respiratory Culture - Final Klebsiella pneumoniae sp pneum 08/03/21 18:00 Blood Culture (Wb) - Anticubital Left Blood Culture - Final No growth in 5 days. 08/03/21 20:20 Blood Culture (Wb) - Right Hand Blood Culture - Final No growth in 5 days. 08/03/21 01:00 Sputum, Expectorated/Coughed Gram Stain - Final 08/03/21 01:00 Sputum, Expectorated/Coughed Respiratory Culture - Final Mixed normal respiratory christina. No Streptococcus pneumoniae, beta-hemolytic Streptococcus or Staphylococcus aureus isolated. 08/03/21 13:33 Urine, Clean Catch Legionella Antigen - Final 08/03/21 13:33 Urine, Clean Catch Streptococcus pneumoniae Antigen (M - Final Radiography Diagnostic Testing: Radiology Impression Chest X-Ray 08/15/21 09:30 IMPRESSION: Progressive left lower lobe pulmonary infiltrate. The tip of the endotracheal tube is at 1.6 cm proximal to the li. Electronically Signed: Mark Chung MD at 9:50 EST , Service support , Physical Exam Const alert Constitutional Narrative: intubated, sedated. RASS score is 0 General Appearance: cooperative Exam Limitations: altered mental status HEENT normocephalic, head/scalp atraumatic and moist oral mucous membranes Head and Scalp: normocephalic Eyes PERRL, EOMs intact bilaterally and conjunctivae normal Neck no lymphadenopathy and no JVD Resp Resp Narrative: diminished breath sounds bibasally. Intubated, sedated. Cardio regular rate, regular rhythm, S1 normal heart sound, S2 normal heart sound and no murmurs GI normal to inspection, nondistended, normoactive bowel sounds, soft to palpation, non-tender, non-distended and hepatosplenomegaly Extremity normal to inspection and no clubbing, cyanosis or edema Peripheral Pulses: Yes pulses 2+ throughout Skin no rashes or lesions noted Neuro Neuro Narrative: intubated, sedated, RASS score is -4 Psych Psych Narrative: intubated and sedated Assessment & Plan Assessment/Plan (1) Acute respiratory failure with hypoxia: (2) Pneumonia due to COVID-19 virus: (3) Severe malnutrition: (4) Hypokalemia: PLAN: #Acute hypoxic respiratory failure due to covid 19 pneumonia and Klebsiella pneumonia * on baricitinib, remdesivir and decadron * ID and pulmonology on board * titrate oxygen to maintain sats >90% * breathing treatment with bronchodilators * On IV Levaquin for Klebsiella pneumonia; to complete a 7 day course * diurese as needed to maintain euvolemic status * #Acute asthma exacerbation: resolved. #Hypokalemia: resolved. #Severe acute malnutrition * on tube feeding. * GI prophylaxis: PPI DVT prophylaxis: lovenox Charges/Coding Visit Charges Inpatient E&M: 02257 Subs Hosp L3
[2021-08-16] VITALS (39 sets, daily range): BP systolic 101–164; BP diastolic 65–94; PULSE 97–122; RESP 14–22; TEMP 37.4–38.1; O2SAT 88–94
[2021-08-16] MEDS: Propofol 10MG/Ml 1,000 MG/100 ML Bottle 9.7 MG CONT INF ×3 (02:03→18:31)
[2021-08-16] MEDS: Ipratropium/Albuterol Sulfate 3 ML AMPUL.NEB INHALATION ×6 (03:53→23:12)
--- NOTE | 2021-08-16 05:57 | PN.CC_ITS ---
Assessment & Plan Assessment/Plan (1) Acute respiratory failure with hypoxia: (2) Pneumonia due to COVID-19 virus: PLAN: RECOMMENDATIONS: 1. Continue to wean FiO2 to maintain oxygen saturations at or above 90%. 2. Continue antimicrobials to complete 7-day treatment course. 3. Continue baricitinib to complete treatment course. 4. Continue prophylactic Lovenox. 5. Continue appropriate GI prophylaxis. 6. Diuretics, as needed, to maintain euvolemic state. 7. Tube feeds as tolerated. IMPRESSIONS: 1. Acute hypoxemic respiratory failure secondary to COVID-19 pneumonia The patient initially presented to the hospital with worsening shortness of breath and hypoxemia. The patient has completed treatment courses of remdesivir and decadron. The patient remains on baricitinib. Ultimately, the patient continued to decompensate from a respiratory perspective and had to be intubated on August 10. Sputum culture was positive for Klebsiella, which is currently being addressed with antimicrobial therapy. Antibiotics will be continued to complete a 7-day treatment course. In the interim, we will continue to wean FiO2 and PEEP as tolerated for saturations greater than 90%. Diuretics will be utilized as needed to maintain euvolemic state. Continue tube feeds as tolerated. Continue appropriate GI and DVT prophylaxis. 2. Obesity/hypertension/self-reported asthma/prior CVA Complicates care, management, recovery and prognosis. Continue home medications as indicated. Continue nutritional support via tube feeds and physical therapy as tolerated. TIME: 33 minutes of critical care time, independent of procedures, was spent addressing the patient's acute hypoxemic respiratory failure secondary to COVID- 19 pneumonia, review of all data and collaboration with care team. Subjective Subjective The patient was seen and examined at the bedside this morning. Events from the last 24 hours have been reviewed. The patient remains hemodynamically stable on assist control mode mechanical ventilation with an FiO2 requirement of 70% and PEEP of 8. Secretion output from the endotracheal tube is improving. The patient remains sedated on propofol and fentanyl. He is currently tolerating tube feeds. The patient is currently documented to be overall net -1.5 L for the hospitalization. The patient remains on antimicrobials, prophylactic Lovenox and baricitinib. The patient has completed his 10-day course of Decadron. Objective Data Objective Data The patient's most recent lab work, culture data and imaging studies have all been personally reviewed. Sputum culture dated Ander 10 was positive for Klebsiella pneumoniae. Vital Signs: Vital Signs Temp Pulse Resp BP Pulse Ox 100.2 F H 112 H 14 116/74 88 08/16/21 05:00 08/16/21 05:00 08/16/21 05:00 08/16/21 05:00 08/16/21 05:00 Oxygen Flow Rate (L/min) 60 Oxygen Delivery Method Mechanical Ventilator Weight: 80.2 kg Body Mass Index (BMI) 30.4 Intake & Output: Intake and Output for Last 24 Hours 08/14/21 08/15/21 08/16/21 23:59 23:59 23:59 Intake Total 3236.98 / 3261.68 3049.65 / 3071.85 122.62 / 122.62 Output Total 1375 / 1375 2350 / 2350 1650 / 1650 Balance 1861.98 / 1886.68 699.65 / 721.85 -1527.38 / -1527.38 Medical Nutrition Assessment Dietitian: Malnutrition Criteria Met Start: 08/03/21 13:46 Freq: Status: Active Protocol: Document 08/13/21 10:41 YAEL (Rec: 08/13/21 10:41 YAEL [id number]) Nutrition Malnutrition Evidence of Malnutrition Exists Yes Malnutrition (severe): Acute Illness/Injury Evidenced By Suboptimal Energy Intake ( Severe),Weight Loss (Severe) Clinical Problem Acute Disease or Injury Related Malnutrition Etiology severe, acute malnutrition r/t inadequate energy intake d/t COVID-19 illness Signs/Symptoms as evidenced by unintentional wt loss of 11% since adm (08/02), estimated PO intake meeting <50% of estimated nutritional needs >1 week, NPO /intubation and need for enteral nutrition support Status Active Problem Recommendation Dietitian Recommendations/Changes NPO while intubated; As tolerated, continue Vital HP at 55mL/hour w/ 100mL H2O flush every 4 hours to provide 1320 calories, 115 g protein, and 1703mL fluid/day. As ordered, enteral nutrition support will meet 70% daily estimated calories, 100% daily estimated protein needs. Lab / Micro Data Attestation: I reviewed the patient's lab results. Result Diagrams: 08/16/21 03:55 08/16/21 03:55 Micro: Microbiology 08/10/21 15:30 Sputum, Induced/Lukens Gram Stain - Final 08/10/21 15:30 Sputum, Induced/Lukens Respiratory Culture - Final Klebsiella pneumoniae sp pneum 08/03/21 18:00 Blood Culture (Wb) - Anticubital Left Blood Culture - Final No growth in 5 days. 08/03/21 20:20 Blood Culture (Wb) - Right Hand Blood Culture - Final No growth in 5 days. 08/03/21 01:00 Sputum, Expectorated/Coughed Gram Stain - Final 08/03/21 01:00 Sputum, Expectorated/Coughed Respiratory Culture - Final Mixed normal respiratory christina. No Streptococcus pneumoniae, beta-hemolytic Streptococcus or Staphylococcus aureus isolated. 08/03/21 13:33 Urine, Clean Catch Legionella Antigen - Final 08/03/21 13:33 Urine, Clean Catch Streptococcus pneumoniae Antigen (M - Final Radiography Diagnostic Testing: Radiology Impression Chest X-Ray 08/15/21 09:30 IMPRESSION: Progressive left lower lobe pulmonary infiltrate. The tip of the endotracheal tube is at 1.6 cm proximal to the li. Electronically Signed: Mark Chung MD at 9:50 EST , Service support , Physical Exam Const alert and no apparent distress General Appearance: intubated and patient mechanically ventilated HEENT normocephalic and head/scalp atraumatic Mouth: endotracheal tube in place and OG tube in place Eyes PERRL and EOMs intact bilaterally Neck supple General: trachea midline Chest inspection of chest normal Resp Auscultation: diminished lung sounds Cardio regular rate and regular rhythm GI normal to inspection, nondistended, normoactive bowel sounds Extremity no clubbing, cyanosis or edema Skin no rashes or lesions noted Neuro no focal motor deficits Sensorium / Orientation: sedated on vent Charges/Coding Procedures Hospitalists Procedures: [id number] Critial Care 1st Hr
[2021-08-16] MEDS: Menthol/Lanolin/Calamine/Znox 113 GM Tube 1 APPLIC TOPICAL ×3 (06:10→21:21)
[2021-08-16] MEDS: guaiFENesin 10 ML UDC (200MG/10ML) 20 ML GT ×3 (06:11→18:04)
[2021-08-16 06:13] LABS: Absolute Lymphocyte Count 0.59 X10^3/uL (0.83-4.51); Absolute Neutrophil Count 11.2 X10^3/uL (2.0-7.7); Basophil# 0.05 X10^3/uL; Basophil% 0.4 % (0-1); Eosinophil# 0.01 X10^3/uL; Eosinophils% 0.1 % (0-5); Hematocrit 38.7 % (40-54); Hemoglobin 12.6 g/dL (13.0-16.5); Lymphocyte # 0.59 X10^3/ul (0.83-4.51); Lymphocyte % 4.7 % (19-41); Mean Corp Hgb Conc 32.6 g/dL (32-36); Mean Corpuscular Hgb 28.6 pg (27.0-32.0); Mean Platelet Vol. 10.2 fl (6.2-12.0); Monocyte# 0.51 X10^3/uL; NRBC Flagged by Analyzer 0 % (0-5); Neutrophil # 11.18 X10^3/uL (2.7-7.7); Neutrophil % 88.3 % (47-70); POSITIVE DIFFERENTIAL YES; Platelet Count 371 K/mm3 (150-450); RBC Distribution Width CV 13.5 % (11.6-14.6); RBC Distribution Width SD 42.9 fl (35.1-43.9); White Blood Count 12.7 K/mm3 (4.4-11.0)
[2021-08-16 06:17] LABS: Differential Indicated SCAN CRITERIA MET
[2021-08-16 06:25] LABS: ALB/GLOB Ratio 0.3 RATIO (0.9-2.4); AST(SGOT) 41 U/L (15-37); Alanine Aminotransfer ALT/SGPT 75 U/L (16-61); Albumin, Serum 1.6 g/dL (3.2-5.0); Alkaline Phosphatase 72 U/L (45-117); Anion Gap 5 (5-15); BUN 29 mg/dL (7-18); BUN/Creat Ratio 54.6 RATIO (10-20); Calcium,Total 8.7 mg/dL (8.5-10.1); Chloride 100 mmol/L (98-107); Creatinine, Serum 0.53 mg/dL (0.70-1.30); EST Glomerular Filtration Rate 164 mL/min (>60); Est Glom Filt Rate - Afr Amer 198 mL/min (>60); Globulin 5.2 g/dL (2.2-4.2); Glucose 122 mg/dL (74-106); Potassium 3.8 mmol/L (3.5-5.1); Protein, Total 6.8 g/dL (6.4-8.2); Sodium Level 141 mmol/L (136-145)
[2021-08-16] MEDS: Vital High Protein 1,000 ML 55 ML GT (06:52)
[2021-08-16] MEDS: 0.9% Saline Lock 10 ML Syringe IV (09:36)
[2021-08-16] MEDS: levoFLOXacin IV 500 MG/100 ML BAG 100 MG IV (09:36)
[2021-08-16] MEDS: Furosemide 40 MG/4 ML Vial IV ×2 (09:38→18:27)
[2021-08-16] MEDS: CHLORHEXIDINE GLUC 2% CLOTH 1 EACH TOWELETTE TOPICAL (09:39)
[2021-08-16] MEDS: Chlorhexidine 15 ML PO ×2 (09:40→21:22)
[2021-08-16] MEDS: Enoxaparin 30 MG/0.3 ML Syringe SC ×2 (09:41→21:20)
[2021-08-16] MEDS: Senna/Docusate Sodium 1 Tablet 2 TABLET GT ×2 (09:42→21:20)
[2021-08-16] MEDS: Polyethylene Glycol 3350 17 GM PACKET GT (09:42)
[2021-08-16] MEDS: Aspirin 325 MG Tablet GT (09:42)
[2021-08-16] MEDS: Famotidine 20 MG Tablet GT ×2 (09:43→21:20)
--- NOTE | 2021-08-16 10:11 | PN.HOSP_ITS ---
Subjective Subjective Patient seen in the room. He still remains intubated and sedated. RASS score is -2. He opens his eyes intermittently but alert respond to voice call. His FiO2 was increased today to 70. He remains tachycardic. Objective Data Objective Data Vital Signs: Vital Signs Temp Pulse Resp BP Pulse Ox 100.6 F H 108 H 20 H 125/69 H 91 08/16/21 08:00 08/16/21 09:21 08/16/21 09:21 08/16/21 08:00 08/16/21 09:21 Oxygen Flow Rate (L/min) 60 Oxygen Delivery Method Mechanical Ventilator Weight: 176 lb 12.972 oz Body Mass Index (BMI) 30.4 Intake & Output: Intake and Output for Last 24 Hours 08/14/21 08/15/21 08/16/21 23:59 23:59 23:59 Intake Total 3236.98 / 3261.68 3049.65 / 3071.85 877.48 / 877.48 Output Total 1375 / 1375 2350 / 2350 1650 / 1650 Balance 1861.98 / 1886.68 699.65 / 721.85 -772.52 / -772.52 Medical Nutrition Assessment Dietitian: Malnutrition Criteria Met Start: 08/03/21 13:46 Freq: Status: Active Protocol: Document 08/13/21 10:41 YAEL (Rec: 08/13/21 10:41 YAEL [id number]) Nutrition Malnutrition Evidence of Malnutrition Exists Yes Malnutrition (severe): Acute Illness/Injury Evidenced By Suboptimal Energy Intake ( Severe),Weight Loss (Severe) Clinical Problem Acute Disease or Injury Related Malnutrition Etiology severe, acute malnutrition r/t inadequate energy intake d/t COVID-19 illness Signs/Symptoms as evidenced by unintentional wt loss of 11% since adm (08/02), estimated PO intake meeting <50% of estimated nutritional needs >1 week, NPO /intubation and need for enteral nutrition support Status Active Problem Recommendation Dietitian Recommendations/Changes NPO while intubated; As tolerated, continue Vital HP at 55mL/hour w/ 100mL H2O flush every 4 hours to provide 1320 calories, 115 g protein, and 1703mL fluid/day. As ordered, enteral nutrition support will meet 70% daily estimated calories, 100% daily estimated protein needs. Lab / Micro Data Result Diagrams: 08/16/21 03:55 08/16/21 03:55 Labs: Laboratory Results - last 24 hr 08/16/21 03:55: WBC 12.7 H, RBC 4.40 L, Hgb 12.6 L, Hct 38.7 L, MCV 88.0, MCH 28.6, MCHC 32.6, RDW Std Deviation 42.9, RDW Coeff of Williams 13.5, Plt Count 371, MPV 10.2, Immature Gran % (Auto) 2.500 H, Neut % (Auto) 88.3 H, Lymph % (Auto) 4.7 L, [place] % (Auto) 4.0, Eos % (Auto) 0.1, Baso % (Auto) 0.4, Absolute Neuts (auto) 11.2 H, Absolute Lymphs (auto) 0.59 L, Nucleated RBC % 0 08/16/21 03:55: Sodium 141, Potassium 3.8, Chloride 100, Carbon Dioxide 36.0 H, Anion Gap 5, BUN 29 H, Creatinine 0.53 L, Estim Creat Clear Calc 68.40, Est GFR (MDRD) Af Amer 198, Est GFR (MDRD) Non-Af 164, BUN/Creatinine Ratio 54.6 H, Glucose 122 H, Calcium 8.7, Total Bilirubin 0.40, AST 41 H, ALT 75 H, Alkaline Phosphatase 72, Total Protein 6.8, Albumin 1.6 L, Globulin 5.2 H, Albumin/Globulin Ratio 0.3 L Micro: Microbiology 08/15/21 10:30 Interface Orders Respiratory Culture - Preliminary Gram negative chandana 08/10/21 15:30 Sputum, Induced/Lukens Gram Stain - Final 08/10/21 15:30 Sputum, Induced/Lukens Respiratory Culture - Final Klebsiella pneumoniae sp pneum 08/03/21 18:00 Blood Culture (Wb) - Anticubital Left Blood Culture - Final No growth in 5 days. 08/03/21 20:20 Blood Culture (Wb) - Right Hand Blood Culture - Final No growth in 5 days. 08/03/21 01:00 Sputum, Expectorated/Coughed Gram Stain - Final 08/03/21 01:00 Sputum, Expectorated/Coughed Respiratory Culture - Final Mixed normal respiratory christina. No Streptococcus pneumoniae, beta-hemolytic Streptococcus or Staphylococcus aureus isolated. 08/03/21 13:33 Urine, Clean Catch Legionella Antigen - Final 08/03/21 13:33 Urine, Clean Catch Streptococcus pneumoniae Antigen (M - Final Physical Exam Const Constitutional Narrative: intubated, sedated. RASS score is -2 General Appearance: cooperative Exam Limitations: altered mental status HEENT normocephalic, head/scalp atraumatic and moist oral mucous membranes Head and Scalp: normocephalic Eyes PERRL, EOMs intact bilaterally and conjunctivae normal Neck no lymphadenopathy and no JVD Resp Resp Narrative: diminished breath sounds bibasally. Intubated, sedated. Cardio regular rate, regular rhythm, S1 normal heart sound, S2 normal heart sound and no murmurs Cardio Narrative: sinus tachycardia GI normal to inspection, nondistended, normoactive bowel sounds, soft to palpation, non-tender, non-distended and hepatosplenomegaly Extremity normal to inspection and no clubbing, cyanosis or edema Peripheral Pulses: Yes pulses 2+ throughout Skin no rashes or lesions noted Neuro oriented x3 Neuro Narrative: intubated, sedated, RASS score is -4 Sensorium / Orientation: awake and alert Psych affect normal Psych Narrative: intubated and sedated Assessment & Plan Assessment/Plan (1) Acute respiratory failure with hypoxia: (2) Pneumonia due to COVID-19 virus: (3) Severe malnutrition: (4) Hypokalemia: PLAN: #Acute hypoxic respiratory failure due to covid 19 pneumonia and Klebsiella pneumonia * on baricitinib. Has completed a course of remdesivir and decadron. * remains intubated and sedzted. * ID and pulmonology on board * titrate oxygen to maintain sats >90% * breathing treatment with bronchodilators * On IV Levaquin for Klebsiella pneumonia; to complete a 7 day course * diurese as needed to maintain euvolemic status * #Acute asthma exacerbation: resolved. #Hypokalemia: resolved. #Severe acute malnutrition * on tube feeding. * GI prophylaxis: PPI DVT prophylaxis: lovenox Charges/Coding Visit Charges Inpatient E&M: 38960 [facility] Hosp L3
[2021-08-17] VITALS (36 sets, daily range): BP systolic 109–143; BP diastolic 65–82; PULSE 96–120; RESP 14–26; TEMP 37.4–38.9; O2SAT 90–95
[2021-08-17] MEDS: Propofol 10MG/Ml 1,000 MG/100 ML Bottle 9.7 MG CONT INF (00:12)
[2021-08-17] MEDS: CHLORHEXIDINE GLUC 2% CLOTH 1 EACH TOWELETTE TOPICAL (00:12)
[2021-08-17] MEDS: Acetaminophen 650 MG/20 ML UDC PO ×3 (00:12→23:04)
[2021-08-17] MEDS: guaiFENesin 10 ML UDC (200MG/10ML) 20 ML GT ×5 (00:13→23:20)
[2021-08-17] MEDS: Ipratropium/Albuterol Sulfate 3 ML AMPUL.NEB INHALATION ×6 (02:19→22:10)
[2021-08-17] MEDS: Vital High Protein 1,000 ML 55 ML GT (02:25)
[2021-08-17 03:51] LABS: Absolute Lymphocyte Count 0.47 X10^3/uL (0.83-4.51); Absolute Neutrophil Count 12.1 X10^3/uL (2.0-7.7); Basophil# 0.04 X10^3/uL; Basophil% 0.3 % (0-1); Hematocrit 39.7 % (40-54); Hemoglobin 12.4 g/dL (13.0-16.5); Lymphocyte # 0.47 X10^3/ul (0.83-4.51); Lymphocyte % 3.4 % (19-41); Mean Corp Hgb Conc 31.2 g/dL (32-36); Mean Corpuscular Hgb 27.8 pg (27.0-32.0); Mean Platelet Vol. 9.8 fl (6.2-12.0); Monocyte# 0.71 X10^3/uL; Monocyte% 5.2 % (0-10); NRBC Flagged by Analyzer 0 % (0-5); Neutrophil # 12.08 X10^3/uL (2.7-7.7); Neutrophil % 88.3 % (47-70); POSITIVE DIFFERENTIAL YES; Platelet Count 381 K/mm3 (150-450); RBC Distribution Width CV 13.6 % (11.6-14.6); RBC Distribution Width SD 43.8 fl (35.1-43.9); Red Blood Count 4.46 M/mm3 (4.6-6.2); White Blood Count 13.7 K/mm3 (4.4-11.0)
[2021-08-17 03:57] LABS: Differential Indicated SCAN CRITERIA MET
[2021-08-17 04:19] LABS: ALB/GLOB Ratio 0.3 RATIO (0.9-2.4); AST(SGOT) 65 U/L (15-37); Alanine Aminotransfer ALT/SGPT 90 U/L (16-61); Albumin, Serum 1.7 g/dL (3.2-5.0); Alkaline Phosphatase 83 U/L (45-117); Anion Gap 5 (5-15); BUN 36 mg/dL (7-18); BUN/Creat Ratio 63.6 RATIO (10-20); Calcium,Total 8.9 mg/dL (8.5-10.1); Chloride 100 mmol/L (98-107); Creatinine, Serum 0.57 mg/dL (0.70-1.30); EST Glomerular Filtration Rate 152 mL/min (>60); Est Glom Filt Rate - Afr Amer 184 mL/min (>60); Globulin 5.4 g/dL (2.2-4.2); Glucose 139 mg/dL (74-106); Potassium 3.8 mmol/L (3.5-5.1); Protein, Total 7.1 g/dL (6.4-8.2); Sodium Level 142 mmol/L (136-145)
[2021-08-17 04:26] LABS: Differential Comment SCANNED
[2021-08-17 05:15] LABS: CPK Total, Creatine Kinase 190 U/L (39-308); Triglycerides 176 mg/dL
--- NOTE | 2021-08-17 06:09 | PCM.PN.INT ---
Assessment & Plan Assessment/Plan (1) Acute respiratory failure with hypoxia: (2) Pneumonia due to COVID-19 virus: PLAN: RECOMMENDATIONS: 1. Continue to wean FiO2 to maintain oxygen saturations at or above 90%. 2. Broaden antimicrobials given continued secretion production and gram-negative's noted on sputum culture. 3. Continue baricitinib to complete treatment course. 4. Continue prophylactic Lovenox. 5. Continue appropriate GI prophylaxis. 6. Decrease Lasix to once daily given rising bicarbonate. 7. Tube feeds as tolerated. IMPRESSIONS: 1. Acute hypoxemic respiratory failure secondary to COVID-19 pneumonia The patient initially presented to the hospital with worsening shortness of breath and hypoxemia. The patient has completed treatment courses of remdesivir and decadron. The patient remains on baricitinib. Ultimately, the patient continued to decompensate from a respiratory perspective and had to be intubated on August 10. Sputum culture was positive for Klebsiella, which is currently being addressed with antimicrobial therapy. Antibiotics will be continued to complete a 7-day treatment course. In the interim, we will continue to wean FiO2 and PEEP as tolerated for saturations greater than 90%. Diuretics will be utilized as needed to maintain euvolemic state. Continue tube feeds as tolerated. Continue appropriate GI and DVT prophylaxis. 2. Obesity/hypertension/self-reported asthma/prior CVA Complicates care, management, recovery and prognosis. Continue home medications as indicated. Continue nutritional support via tube feeds and physical therapy as tolerated. TIME: 36 minutes of critical care time, independent of procedures, was spent addressing the patient's acute hypoxemic respiratory failure secondary to COVID-19 pneumonia, review of all data and collaboration with care team. Subjective Subjective The patient was seen and examined at the bedside this morning. Events from the last 24 hours have been reviewed. The patient currently has a low-grade fever but remains otherwise hemodynamically stable. Continued malodorous secretions were noted from his endotracheal tube. The patient remains on assist control mode of mechanical ventilation with an FiO2 requirement of 85% and PEEP of 8. He remains sedated on propofol and fentanyl. The patient has been tolerant of tube feeds. The patient is currently documented to be overall net -1.2 L for the hospitalization. The patient remains on antimicrobials, prophylactic Lovenox, scheduled diuretics and baricitinib. The patient has completed his 10-day course of Decadron. Renal function is stable. Objective Data Objective Data The patient's most recent lab work, culture data and imaging studies have all been personally reviewed. Sputum culture dated August 10 was positive for Klebsiella pneumoniae. Repeat sputum culture from August 15 is demonstrating growth of a gram-negative chandana. Vital Signs: Vital Signs Temp Pulse Resp BP Pulse Ox 100 F H 96 18 111/65 94 08/17/21 06:00 08/17/21 06:00 08/17/21 06:00 08/17/21 06:00 08/17/21 06:00 Oxygen Flow Rate (L/min) 60 Oxygen Delivery Method Mechanical Ventilator Weight: 78.6 kg Body Mass Index (BMI) 30.4 Intake & Output: Intake and Output for Last 24 Hours 08/15/21 08/16/21 08/17/21 23:59 23:59 23:59 Intake Total 3049.65 / 3071.85 2081.02 / 2531.97 539.71 / 539.71 Output Total 2350 / 2350 2650 / 3800 1150 / 1150 Balance 699.65 / 721.85 -568.98 / -1268.03 -610.29 / -610.29 Medical Nutrition Assessment Dietitian: Malnutrition Criteria Met Start: 08/03/21 13:46 Freq: Status: Active Protocol: Document 08/13/21 10:41 YAEL (Rec: 08/13/21 10:41 YAEL [id number]) Nutrition Malnutrition Evidence of Malnutrition Exists Yes Malnutrition (severe): Acute Illness/Injury Evidenced By Suboptimal Energy Intake ( Severe),Weight Loss (Severe) Clinical Problem Acute Disease or Injury Related Malnutrition Etiology severe, acute malnutrition r/t inadequate energy intake d/t COVID-19 illness Signs/Symptoms as evidenced by unintentional wt loss of 11% since adm (08/02), estimated PO intake meeting <50% of estimated nutritional needs >1 week, NPO /intubation and need for enteral nutrition support Status Active Problem Recommendation Dietitian Recommendations/Changes NPO while intubated; As tolerated, continue Vital HP at 55mL/hour w/ 100mL H2O flush every 4 hours to provide 1320 calories, 115 g protein, and 1703mL fluid/day. As ordered, enteral nutrition support will meet 70% daily estimated calories, 100% daily estimated protein needs. Lab / Micro Data Attestation: I reviewed the patient's lab results. Result Diagrams: 08/17/21 03:44 08/17/21 03:44 Labs: Laboratory Results - last 24 hr 08/16/21 03:55: WBC 12.7 H, RBC 4.40 L, Hgb 12.6 L, Hct 38.7 L, MCV 88.0, MCH 28.6, MCHC 32.6, RDW Std Deviation 42.9, RDW Coeff of Williams 13.5, Plt Count 371, MPV 10.2, Immature Gran % (Auto) 2.500 H, Neut % (Auto) 88.3 H, Lymph % (Auto) 4.7 L, [place] % (Auto) 4.0, Eos % (Auto) 0.1, Baso % (Auto) 0.4, Absolute Neuts (auto) 11.2 H, Absolute Lymphs (auto) 0.59 L, Nucleated RBC % 0 08/16/21 03:55: Sodium 141, Potassium 3.8, Chloride 100, Carbon Dioxide 36.0 H, Anion Gap 5, BUN 29 H, Creatinine 0.53 L, Estim Creat Clear Calc 68.40, Est GFR (MDRD) Af Amer 198, Est GFR (MDRD) Non-Af 164, BUN/Creatinine Ratio 54.6 H, Glucose 122 H, Calcium 8.7, Total Bilirubin 0.40, AST 41 H, ALT 75 H, Alkaline Phosphatase 72, Total Protein 6.8, Albumin 1.6 L, Globulin 5.2 H, Albumin/Globulin Ratio 0.3 L 08/17/21 03:44: WBC 13.7 H, RBC 4.46 L, Hgb 12.4 L, Hct 39.7 L, MCV 89.0, MCH 27.8, MCHC 31.2 L, RDW Std Deviation 43.8, RDW Coeff of Williams 13.6, Plt Count 381, MPV 9.8, Immature Gran % (Auto) 2.800 H, Neut % (Auto) 88.3 H, Lymph % (Auto) 3.4 L, [place] % (Auto) 5.2, Eos % (Auto) 0.0, Baso % (Auto) 0.3, Absolute Neuts (auto) 12.1 H, Absolute Lymphs (auto) 0.47 L, Nucleated RBC % 0, Differential Comment SCANNED 08/17/21 03:44: Sodium 142, Potassium 3.8, Chloride 100, Carbon Dioxide 37.0 H, Anion Gap 5, BUN 36 H, Creatinine 0.57 L, Estim Creat Clear Calc 68.40, Est GFR (MDRD) Af Amer 184, Est GFR (MDRD) Non-Af 152, BUN/Creatinine Ratio 63.6 H, Glucose 139 H, Calcium 8.9, Total Bilirubin 0.30, AST 65 H, ALT 90 H, Alkaline Phosphatase 83, Total Protein 7.1, Albumin 1.7 L, Globulin 5.4 H, Albumin/Globulin Ratio 0.3 L 08/17/21 03:44: Total Creatine Kinase 190, Triglycerides 176 Micro: Microbiology 08/15/21 10:30 Interface Orders Gram Stain - Final 08/15/21 10:30 Interface Orders Respiratory Culture - Preliminary Gram negative chandana 08/10/21 15:30 Sputum, Induced/Lukens Gram Stain - Final 08/10/21 15:30 Sputum, Induced/Lukens Respiratory Culture - Final Klebsiella pneumoniae sp pneum 08/03/21 18:00 Blood Culture (Wb) - Anticubital Left Blood Culture - Final No growth in 5 days. 08/03/21 20:20 Blood Culture (Wb) - Right Hand Blood Culture - Final No growth in 5 days. 08/03/21 01:00 Sputum, Expectorated/Coughed Gram Stain - Final 08/03/21 01:00 Sputum, Expectorated/Coughed Respiratory Culture - Final Mixed normal respiratory christina. No Streptococcus pneumoniae, beta-hemolytic Streptococcus or Staphylococcus aureus isolated. 08/03/21 13:33 Urine, Clean Catch Legionella Antigen - Final 08/03/21 13:33 Urine, Clean Catch Streptococcus pneumoniae Antigen (M - Final Physical Exam Const alert and no apparent distress General Appearance: intubated and patient mechanically ventilated HEENT normocephalic and head/scalp atraumatic Mouth: endotracheal tube in place and OG tube in place Eyes PERRL and EOMs intact bilaterally Neck supple General: trachea midline Chest inspection of chest normal Resp Auscultation: rhonchi and diminished lung sounds Cardio regular rate and regular rhythm GI normal to inspection, nondistended, normoactive bowel sounds Extremity no clubbing, cyanosis or edema Skin no rashes or lesions noted Neuro no focal motor deficits Sensorium / Orientation: sedated on vent Charges/Coding Procedures Hospitalists Procedures: [id number] [facility] 1st Hr
[2021-08-17] MEDS: Menthol/Lanolin/Calamine/Znox 113 GM Tube 1 APPLIC TOPICAL ×3 (06:47→23:05)
[2021-08-17] MEDS: 0.9% Saline Lock 10 ML Syringe IV (07:45)
[2021-08-17] MEDS: Aspirin 325 MG Tablet GT (07:50)
[2021-08-17] MEDS: Polyethylene Glycol 3350 17 GM PACKET GT (07:50)
[2021-08-17] MEDS: Famotidine 20 MG Tablet GT (07:50)
[2021-08-17] MEDS: Senna/Docusate Sodium 1 Tablet 2 TABLET GT ×2 (07:54→23:05)
[2021-08-17] MEDS: Propofol 10MG/Ml 1,000 MG/100 ML Bottle 9.4 MG CONT INF (09:17)
[2021-08-17] MEDS: Enoxaparin 30 MG/0.3 ML Syringe SC ×2 (09:31→23:04)
[2021-08-17] MEDS: Chlorhexidine 15 ML PO ×2 (09:31→23:04)
[2021-08-17] MEDS: Furosemide 40 MG/4 ML Vial IV (09:32)
--- NOTE | 2021-08-17 09:42 | CASEMGMT ---
Social Work SW attended ICU rounds. Pt continues to be intubated. After rounds, phone call to pt to offer support. SW spoke with and she is appreciative of phone call and support. Pt's has friends and family that have been reaching out to her daily for support. also states she is out of isolation on Friday and plans to visit pt on Friday. is appreciative of daily nursing updates on pt condition. Pt made aware that SW remains available for support. RAND Springer
--- NOTE | 2021-08-17 09:49 | PN.HOSP_ITS ---
Subjective Subjective normal.Patient seen and Ex He is on FiO2 ofamined. He remains intubated and sedated. His temperature is up to 85 Fahrenheit today. He was noted to have continuous secretions from his ET tube. He is on PEEP of 8. He remains on tube feeds. Objective Data Objective Data Vital Signs: Vital Signs Temp Pulse Resp BP Pulse Ox 100.5 F H 97 15 119/67 93 08/17/21 09:00 08/17/21 09:00 08/17/21 09:00 08/17/21 09:00 08/17/21 09:00 Oxygen Flow Rate (L/min) 60 Oxygen Delivery Method Mechanical Ventilator Weight: 173 lb 4.533 oz Body Mass Index (BMI) 30.4 Intake & Output: Intake and Output for Last 24 Hours 08/15/21 08/16/21 08/17/21 23:59 23:59 23:59 Intake Total 3049.65 / 3071.85 2081.02 / 2531.97 1205.52 / 1205.52 Output Total 2350 / 2350 2650 / 3800 1475 / 1475 Balance 699.65 / 721.85 -568.98 / -1268.03 -269.48 / -269.48 Medical Nutrition Assessment Dietitian: Malnutrition Criteria Met Start: 08/03/21 13 :46 Freq: Status: Active Protocol: Document 08/13/21 10:41 YAEL (Rec: 08/13/21 10:41 YAEL [id number]) Nutrition Malnutrition Evidence of Malnutrition Exists Yes Malnutrition (severe): Acute Illness/Injury Evidenced By Suboptimal Energy Intake ( Severe),Weight Loss (Severe) Clinical Problem Acute Disease or Injury Related Malnutrition Etiology severe, acute malnutrition r/t inadequate energy intake d/t COVID-19 illness Signs/Symptoms as evidenced by unintentional wt loss of 11% since adm (08/02), estimated PO intake meeting <50% of estimated nutritional needs >1 week, NPO /intubation and need for enteral nutrition support Status Active Problem Recommendation Dietitian Recommendations/Changes NPO while intubated; As tolerated, continue Vital HP at 55mL/hour w/ 100mL H2O flush every 4 hours to provide 1320 calories, 115 g protein, and 1703mL fluid/day. As ordered, enteral nutrition support will meet 70% daily estimated calories, 100% daily estimated protein needs. Lab / Micro Data Result Diagrams: 08/17/21 03:44 08/17/21 03:44 Labs: Laboratory Results - last 24 hr 08/17/21 03:44: WBC 13.7 H, RBC 4.46 L, Hgb 12.4 L, Hct 39.7 L, MCV 89.0, MCH 27.8, MCHC 31.2 L, RDW Std Deviation 43.8, RDW Coeff of Williams 13.6, Plt Count 381, MPV 9.8, Immature Gran % (Auto) 2.800 H, Neut % (Auto) 88.3 H, Lymph % (Auto) 3.4 L, [place] % (Auto) 5.2, Eos % (Auto) 0.0, Baso % (Auto) 0.3, Absolute Neuts (auto) 12.1 H, Absolute Lymphs (auto) 0.47 L, Nucleated RBC % 0, Differential Comment SCANNED 08/17/21 03:44: Sodium 142, Potassium 3.8, Chloride 100, Carbon Dioxide 37.0 H, Anion Gap 5, BUN 36 H, Creatinine 0.57 L, Estim Creat Clear Calc 68.40, Est GFR (MDRD) Af Amer 184, Est GFR (MDRD) Non-Af 152, BUN/Creatinine Ratio 63.6 H, Glucose 139 H, Calcium 8.9, Total Bilirubin 0.30, AST 65 H, ALT 90 H, Alkaline Phosphatase 83, Total Protein 7.1, Albumin 1.7 L, Globulin 5.4 H, Albumin/Globulin Ratio 0.3 L 08/17/21 03:44: Total Creatine Kinase 190, Triglycerides 176 Micro: Microbiology 08/15/21 10:30 Interface Orders Gram Stain - Final 08/15/21 10:30 Interface Orders Respiratory Culture - Final Stenotrophomonas maltophilia 08/10/21 15:30 Sputum, Induced/Lukens Gram Stain - Final 08/10/21 15:30 Sputum, Induced/Lukens Respiratory Culture - Final Klebsiella pneumoniae sp pneum 08/03/21 18:00 Blood Culture (Wb) - Anticubital Left Blood Culture - Final No growth in 5 days. 08/03/21 20:20 Blood Culture (Wb) - Right Hand Blood Culture - Final No growth in 5 days. 08/03/21 01:00 Sputum, Expectorated/Coughed Gram Stain - Final 08/03/21 01:00 Sputum, Expectorated/Coughed Respiratory Culture - Final Mixed normal respiratory christina. No Streptococcus pneumoniae, beta-hemolytic Streptococcus or Staphylococcus aureus isolated. 08/03/21 13:33 Urine, Clean Catch Legionella Antigen - Final 08/03/21 13:33 Urine, Clean Catch Streptococcus pneumoniae Antigen (M - Final Physical Exam Const alert Constitutional Narrative: intubated, sedated. RASS score is -4 General Appearance: cooperative Exam Limitations: altered mental status HEENT normocephalic, head/scalp atraumatic and moist oral mucous membranes Head and Scalp: normocephalic Eyes PERRL, EOMs intact bilaterally and conjunctivae normal Neck no lymphadenopathy and no JVD Resp Resp Narrative: diminished breath sounds bibasally. Intubated, sedated. Cardio regular rate, regular rhythm, S1 normal heart sound, S2 normal heart sound and no murmurs GI normal to inspection, nondistended, normoactive bowel sounds, soft to palpation, non-tender, non-distended and hepatosplenomegaly Extremity normal to inspection and no clubbing, cyanosis or edema Skin no rashes or lesions noted Neuro Neuro Narrative: intubated, sedated, RASS score is -4 Psych Psych Narrative: intubated and sedated Assessment & Plan Assessment/Plan (1) Acute respiratory failure with hypoxia: (2) Pneumonia due to COVID-19 virus: (3) Severe malnutrition: (4) Hypokalemia: PLAN: #Acute hypoxic respiratory failure due to covid 19 pneumonia and Klebsiella pneumonia * on baricitinib. Has completed a course of remdesivir and decadron. * remains intubated and sedated. having increased secretions from his ET tube * ID and pulmonology on board * titrate oxygen to maintain sats >90% * breathing treatment with bronchodilators * On IV Levaquin for Klebsiella pneumonia; to complete a 7 day course * diurese as needed to maintain euvolemic status * #Acute asthma exacerbation: resolved. remains intubated and sedated o/a of acute hypoxic respiratory failure due to covid. #Hypokalemia: resolved. #Severe acute malnutrition * on tube feeding. * GI prophylaxis: PPI DVT prophylaxis: lovenox Charges/Coding Visit Charges Inpatient E&M: [id number] [facility] Hosp L3
[2021-08-17] MEDS: levoFLOXacin IV 750 MG/150 ML BAG 100 MG IV (10:11)
--- NOTE | 2021-08-17 14:32 | PCM.PN.ID ---
Physical Exam Narrative On vent, foul sputum, low grade fever Const no apparent distress Resp Effort and Inspection: mechanically ventilated Auscultation: diminished lung sounds Cardio regular rate and regular rhythm GI soft to palpation, non-tender and non-distended Skin no rashes or lesions noted ID ID: Route of nutrition/ use of supplements: [] Nutritional Intake: [] IV Site: [] Russell Catheter: [] Assessment & Plan Assessment/Plan (1) Pneumonia due to COVID-19 virus: PLAN: Sx started 07/25. Unvaccinated. Isolate for 20 days, stop date 08/13/21. Recommend vaccine once out of iso. On dex, off baricitinib, and completed remdesivir. Sputum now with steno. On levaquin and ofelia, previously grew klebs. Will follow, d/w Dr. Veloz (2) Acute respiratory failure with hypoxia:
[2021-08-17] MEDS: Propofol 10MG/Ml 1,000 MG/100 ML Bottle 7.1 MG CONT INF (20:30)
[2021-08-18] VITALS (40 sets, daily range): BP systolic 104–169; BP diastolic 62–87; PULSE 96–126; RESP 17–27; TEMP 38.1–38.9; O2SAT 88–96
[2021-08-18] MEDS: Ipratropium/Albuterol Sulfate 3 ML AMPUL.NEB INHALATION ×6 (02:53→23:07)
[2021-08-18 03:51] LABS: Absolute Lymphocyte Count 0.45 X10^3/uL (0.83-4.51); Basophil# 0.03 X10^3/uL; Basophil% 0.2 % (0-1); Hematocrit 38.9 % (40-54); Hemoglobin 12.3 g/dL (13.0-16.5); Lymphocyte # 0.45 X10^3/ul (0.83-4.51); Lymphocyte % 3.1 % (19-41); Mean Corp Hgb Conc 31.6 g/dL (32-36); Mean Corpuscular Hgb 28.6 pg (27.0-32.0); Mean Corpuscular Volume 90.5 fL (80-94); Mean Platelet Vol. 9.9 fl (6.2-12.0); Monocyte# 0.99 X10^3/uL; Monocyte% 6.7 % (0-10); NRBC Flagged by Analyzer 0 % (0-5); Neutrophil # 12.98 X10^3/uL (2.7-7.7); Neutrophil % 88.2 % (47-70); POSITIVE DIFFERENTIAL YES; Platelet Count 395 K/mm3 (150-450); RBC Distribution Width SD 45.1 fl (35.1-43.9); White Blood Count 14.7 K/mm3 (4.4-11.0)
--- NOTE | 2021-08-18 03:55 | NURSING ---
Fentanyl bag changed at 0355. Bag was not fully infused at 0300.
[2021-08-18 03:56] LABS: Differential Indicated SCAN CRITERIA MET
[2021-08-18 04:09] LABS: ALB/GLOB Ratio 0.3 RATIO (0.9-2.4); AST(SGOT) 68 U/L (15-37); Alanine Aminotransfer ALT/SGPT 118 U/L (16-61); Albumin, Serum 1.6 g/dL (3.2-5.0); Alkaline Phosphatase 93 U/L (45-117); Anion Gap 4 (5-15); BUN 38 mg/dL (7-18); BUN/Creat Ratio 61.4 RATIO (10-20); Calcium,Total 8.6 mg/dL (8.5-10.1); Chloride 103 mmol/L (98-107); Creatinine, Serum 0.62 mg/dL (0.70-1.30); EST Glomerular Filtration Rate 137 mL/min (>60); Est Glom Filt Rate - Afr Amer 166 mL/min (>60); Globulin 5.2 g/dL (2.2-4.2); Glucose 137 mg/dL (74-106); Potassium 3.6 mmol/L (3.5-5.1); Protein, Total 6.8 g/dL (6.4-8.2); Sodium Level 143 mmol/L (136-145)
[2021-08-18 04:17] LABS: Differential Comment SCANNED
[2021-08-18] MEDS: guaiFENesin 10 ML UDC (200MG/10ML) 20 ML GT ×4 (05:42→23:44)
[2021-08-18] MEDS: Menthol/Lanolin/Calamine/Znox 113 GM Tube 1 APPLIC TOPICAL ×3 (05:42→22:15)
--- NOTE | 2021-08-18 05:58 | PN.CC_ITS ---
Assessment & Plan Assessment/Plan (1) Acute respiratory failure with hypoxia: (2) Pneumonia due to COVID-19 virus: PLAN: RECOMMENDATIONS: 1. Continue to wean FiO2 to maintain oxygen saturations at or above 90%. 2. Continue current antimicrobial regimen. 3. Continue prophylactic Lovenox. 4. Continue appropriate GI prophylaxis. 5. Ongoing diuresis as tolerated by hemodynamics and renal function. 6. Tube feeds as tolerated. IMPRESSIONS: 1. Acute hypoxemic respiratory failure secondary to COVID-19 pneumonia The patient initially presented to the hospital with worsening shortness of breath and hypoxemia. The patient has completed treatment courses of remdesivir, decadron and partial course of baricitinib. Ultimately, the patient continued to decompensate from a respiratory perspective and had to be intubated on August 10. Sputum culture was positive for Klebsiella and stenotrophomonas, which is currently being addressed with antimicrobial therapy. In the interim, we will continue to wean FiO2 and PEEP as tolerated for saturations greater than 90%. Diuretics will be utilized as needed to maintain euvolemic state. Continue tube feeds as tolerated. Continue appropriate GI and DVT prophylaxis. 2. Obesity/hypertension/self-reported asthma/prior CVA Complicates care, management, recovery and prognosis. Continue home medications as indicated. Continue nutritional support via tube feeds and physical therapy as tolerated. TIME: 33 minutes of critical care time, independent of procedures, was spent addressing the patient's acute hypoxemic respiratory failure secondary to COVID- 19 pneumonia, review of all data and collaboration with care team. Subjective Subjective The patient was seen and examined at the bedside this morning. Events from the last 24 hours have been reviewed. Today is vent day #9. The patient was again febrile overnight with a T-max of 102.1 ?F. He remains hemodynamically stable. The patient remains on assist control mode of mechanical ventilation with an FiO2 requirement of 70% and PEEP of 8. He is sedated on fentanyl and propofol. He is currently tolerating tube feeds. The patient is currently documented to be overall net even for the hospitalization. The patient remains on antimicrobials, prophylactic Lovenox and scheduled diuretics. The patient completed a treatment course of remdesivir, 10-day course of Decadron and partial course of baricitinib. Renal function remains stable. Objective Data Objective Data The patient's most recent lab work, culture data and imaging studies have all been personally reviewed. Sputum culture dated August 10 was positive for Klebsiella pneumoniae. Repeat sputum culture from August 15 is growing stenotrophomonas. Vital Signs: Vital Signs Temp Pulse Resp BP Pulse Ox 101.7 F H 116 H 18 122/68 H 91 08/18/21 01:00 08/18/21 04:10 08/18/21 04:10 08/18/21 01:00 08/18/21 04:10 Oxygen Flow Rate (L/min) 60 Oxygen Delivery Method Mechanical Ventilator Weight: 78.6 kg Body Mass Index (BMI) 30.4 Intake & Output: Intake and Output for Last 24 Hours 08/16/21 08/17/21 08/18/21 23:59 23:59 23:59 Intake Total 2081.02 / 2531.97 3365.31 / 3384.91 828.97 / 828.97 Output Total 2650 / 3800 3015 / 3015 450 / 450 Balance -568.98 / -1268.03 350.31 / 369.91 378.97 / 378.97 Medical Nutrition Assessment Dietitian: Malnutrition Criteria Met Start: 08/03/21 13:46 Freq: Status: Active Protocol: Document 08/17/21 10:52 AG (Rec: 08/17/21 10:52 [id number]) Nutrition Malnutrition Evidence of Malnutrition Exists Yes Malnutrition (severe): Acute Illness/Injury Evidenced By Suboptimal Energy Intake ( Severe),Weight Loss (Severe) Clinical Problem Acute Disease or Injury Related Malnutrition Etiology severe, acute malnutrition r/t inadequate energy intake d/t COVID-19 illness Signs/Symptoms as evidenced by unintentional wt loss of 12.1kg/13% since adm (08/02/21), estimated PO intake meeting <50% of estimated nutritional needs >1 week Status Active Problem Recommendation Dietitian Recommendations/Changes NPO while intubated; Continue via OGT- Vital HP to 55mL/hour w/ 100mL H2O flush every 4 hours to provide 1320 calories , 115 g protein, and 1703mL fluid/day. As ordered, enteral nutrition support will meet 70% daily estimated calories, 100% daily estimated protein needs. Lab / Micro Data Result Diagrams: 08/18/21 03:45 08/18/21 03:45 Labs: Laboratory Results - last 24 hr 08/18/21 03:45: WBC 14.7 H, RBC 4.30 L, Hgb 12.3 L, Hct 38.9 L, MCV 90.5, MCH 28.6, MCHC 31.6 L, RDW Std Deviation 45.1 H, RDW Coeff of Williams 14.0, Plt Count 395, MPV 9.9, Immature Gran % (Auto) 1.800 H, Neut % (Auto) 88.2 H, Lymph % (Auto) 3.1 L, [place] % (Auto) 6.7, Eos % (Auto) 0.0, Baso % (Auto) 0.2, Absolute Neuts (auto) 13.0 H, Absolute Lymphs (auto) 0.45 L, Nucleated RBC % 0, Diff erential Comment SCANNED 08/18/21 03:45: Sodium 143, Potassium 3.6, Chloride 103, Carbon Dioxide 36.0 H, Anion Gap 4 L, BUN 38 H, Creatinine 0.62 L, Estim Creat Clear Calc 68.40, Est GF R (MDRD) Af Amer 166, Est GFR (MDRD) Non-Af 137, BUN/Creatinine Ratio 61.4 H, Glucose 137 H, Calcium 8.6, Total Bilirubin 0.50, AST 68 H, ALT 118 H, Alkaline Phosphatase 93, Total Protein 6.8, Albumin 1.6 L, Globulin 5.2 H, Albumin/Globulin Ratio 0.3 L Micro: Microbiology 08/15/21 10:30 Interface Orders Gram Stain - Final 08/15/21 10:30 Interface Orders Respiratory Culture - Final Stenotrophomonas maltophilia 08/10/21 15:30 Sputum, Induced/Lukens Gram Stain - Final 08/10/21 15:30 Sputum, Induced/Lukens Respiratory Culture - Final Klebsiella pneumoniae sp pneum 08/03/21 18:00 Blood Culture (Wb) - Anticubital Left Blood Culture - Final No growth in 5 days. 08/03/21 20:20 Blood Culture (Wb) - Right Hand Blood Culture - Final No growth in 5 days. 08/03/21 01:00 Sputum, Expectorated/Coughed Gram Stain - Final 08/03/21 01:00 Sputum, Expectorated/Coughed Respiratory Culture - Final Mixed normal respiratory christina. No Streptococcus pneumoniae, beta-hemolytic Streptococcus or Staphylococcus aureus isolated. 08/03/21 13:33 Urine, Clean Catch Legionella Antigen - Final 08/03/21 13:33 Urine, Clean Catch Streptococcus pneumoniae Antigen (M - Final Physical Exam Const alert and no apparent distress General Appearance: intubated and patient mechanically ventilated HEENT normocephalic and head/scalp atraumatic Mouth: endotracheal tube in place and OG tube in place Eyes PERRL and EOMs intact bilaterally Neck supple General: trachea midline Chest inspection of chest normal Resp Auscultation: rhonchi and diminished lung sounds Cardio regular rate and regular rhythm GI normal to inspection, nondistended, normoactive bowel sounds Extremity no clubbing, cyanosis or edema Skin no rashes or lesions noted Neuro no focal motor deficits Sensorium / Orientation: sedated on vent Charges/Coding Procedures Hospitalists Procedures: 64693 Critial Care 1st Hr
[2021-08-18] MEDS: Propofol 10MG/Ml 1,000 MG/100 ML Bottle 7.1 MG CONT INF (06:54)
[2021-08-18] MEDS: Senna/Docusate Sodium 1 Tablet 2 TABLET GT (08:37)
[2021-08-18] MEDS: Aspirin 325 MG Tablet GT (08:37)
[2021-08-18] MEDS: Polyethylene Glycol 3350 17 GM PACKET GT (08:38)
[2021-08-18] MEDS: CHLORHEXIDINE GLUC 2% CLOTH 1 EACH TOWELETTE TOPICAL (08:38)
[2021-08-18] MEDS: Chlorhexidine 15 ML PO ×2 (08:38→22:16)
[2021-08-18] MEDS: Furosemide 40 MG/4 ML Vial IV (08:38)
[2021-08-18] MEDS: Enoxaparin 30 MG/0.3 ML Syringe SC ×2 (08:38→22:26)
[2021-08-18] MEDS: Acetaminophen 650 MG/20 ML UDC PO ×3 (08:39→23:30)
--- NOTE | 2021-08-18 10:05 | PN.HOSP_ITS ---
Subjective Subjective Patient seen and examined. He still remains intubated and sedated. He is wanting a fever today with a temperature of around 102. He was also tachycardic. Objective Data Objective Data Vital Signs: Vital Signs Temp Pulse Resp BP Pulse Ox 101.9 F H 113 H 20 H 144/81 H 89 08/18/21 06:00 08/18/21 08:00 08/18/21 06:43 08/18/21 06:00 08/18/21 06:43 Oxygen Flow Rate (L/min) 60 Oxygen Delivery Method Mechanical Ventilator Weight: 173 lb 4.533 oz Body Mass Index (BMI) 30.4 Intake & Output: Intake and Output for Last 24 Hours 08/16/21 08/17/21 08/18/21 23:59 23:59 23:59 Intake Total 2081.02 / 2531.97 3365.31 / 3384.91 1312.53 / 1312.53 Output Total 2650 / 3800 3015 / 3015 450 / 450 Balance -568.98 / -1268.03 350.31 / 369.91 862.53 / 862.53 Medical Nutrition Assessment Dietitian: Malnutrition Criteria Met Start: 08/03/21 13:46 Freq: Status: Active Protocol: Document 08/17/21 10:52 AG (Rec: 08/17/21 10:52 [id number]) Nutrition Malnutrition Evidence of Malnutrition Exists Yes Malnutrition (severe): Acute Illness/Injury Evidenced By Suboptimal Energy Intake ( Severe),Weight Loss (Severe) Clinical Problem Acute Disease or Injury Related Malnutrition Etiology severe, acute malnutrition r/t inadequate energy intake d/t COVID-19 illness Signs/Symptoms as evidenced by unintentional wt loss of 12.1kg/13% since adm (08/02/21), estimated PO intake meeting <50% of estimated nutritional needs >1 week Status Active Problem Recommendation Dietitian Recommendations/Changes NPO while intubated; Continue via OGT- Vital HP to 55mL/hour w/ 100mL H2O flush every 4 hours to provide 1320 calories , 115 g protein, and 1703mL fluid/day. As ordered, enteral nutrition support will meet 70% daily estimated calories, 100% daily estimated protein needs. Lab / Micro Data Result Diagrams: 08/18/21 03:45 08/18/21 03:45 Labs: Laboratory Results - last 24 hr 12/18/21 03:45: WBC 14.7 H, RBC 4.30 L, Hgb 12.3 L, Hct 38.9 L, MCV 90.5, MCH 28.6, MCHC 31.6 L, RDW Std Deviation 45.1 H, RDW Coeff of Williams 14.0, Plt Count 395, MPV 9.9, Immature Gran % (Auto) 1.800 H, Neut % (Auto) 88.2 H, Lymph % (Auto) 3.1 L, [place] % (Auto) 6.7, Eos % (Auto) 0.0, Baso % (Auto) 0.2, Absolute Neuts (auto) 13.0 H, Absolute Lymphs (auto) 0.45 L, Nucleated RBC % 0, Differential Comment SCANNED 08/18/21 03:45: Sodium 143, Potassium 3.6, Chloride 103, Carbon Dioxide 36.0 H, Anion Gap 4 L, BUN 38 H, Creatinine 0.62 L, Estim Creat Clear Calc 68.40, Est GFR (MDRD) Af Amer 166, Est GFR (MDRD) Non-Af 137, BUN/Creatinine Ratio 61.4 H, Glucose 137 H, Calcium 8.6, Total Bilirubin 0.50, AST 68 H, ALT 118 H, Alkaline Phosphatase 93, Total Protein 6.8, Albumin 1.6 L, Globulin 5.2 H, Albumin/Globulin Ratio 0.3 L Micro: Microbiology 08/15/21 10:30 Interface Orders Gram Stain - Final 08/15/21 10:30 Interface Orders Respiratory Culture - Final Stenotrophomonas maltophilia 08/10/21 15:30 Sputum, Induced/Lukens Gram Stain - Final 08/10/21 15:30 Sputum, Induced/Lukens Respiratory Culture - Final Klebsiella pneumoniae sp pneum 08/03/21 18:00 Blood Culture (Wb) - Anticubital Left Blood Culture - Final No growth in 5 days. 08/03/21 20:20 Blood Culture (Wb) - Right Hand Blood Culture - Final No growth in 5 days. 08/03/21 01:00 Sputum, Expectorated/Coughed Gram Stain - Final 08/03/21 01:00 Sputum, Expectorated/Coughed Respiratory Culture - Final Mixed normal respiratory christina. No Streptococcus pneumoniae, beta-hemolytic Streptococcus or Staphylococcus aureus isolated. 08/03/21 13:33 Urine, Clean Catch Legionella Antigen - Final 08/03/21 13:33 Urine, Clean Catch Streptococcus pneumoniae Antigen (M - Final Physical Exam Const Constitutional Narrative: intubated, sedated. RASS score is -4 General Appearance: cooperative Exam Limitations: altered mental status HEENT normocephalic, head/scalp atraumatic and moist oral mucous membranes Head and Scalp: normocephalic Eyes PERRL, EOMs intact bilaterally and conjunctivae normal Neck no lymphadenopathy and no JVD Resp Resp Narrative: diminished breath sounds bibasally. Intubated, sedated. Cardio regular rate, regular rhythm, S1 normal heart sound, S2 normal heart sound and no murmurs Cardio Narrative: sinus tachycardia GI normal to inspection, nondistended, normoactive bowel sounds, soft to palpation, non-tender, non-distended and hepatosplenomegaly Extremity normal to inspection and no clubbing, cyanosis or edema Skin no rashes or lesions noted Neuro Neuro Narrative: still intubated, sedated, RASS score is -4 Psych Psych Narrative: intubated and sedated Assessment & Plan Assessment/Plan (1) Acute respiratory failure with hypoxia: (2) Pneumonia due to COVID-19 virus: (3) Severe malnutrition: (4) Hypokalemia: PLAN: #Acute hypoxic respiratory failure due to covid 19 pneumonia and Klebsiella pneumonia * on baricitinib. Has completed a course of remdesivir and decadron. * remains intubated and sedated. * ID and pulmonology on board * titrate oxygen to maintain sats >90% * breathing treatment with bronchodilators * On IV Levaquin for Klebsiella pneumonia; to complete a 7 day course * also on meropenem * diurese as needed to maintain euvolemic status * #Acute asthma exacerbation: resolved. remains intubated and sedated o/a of acute hypoxic respiratory failure due to covid. #Hypokalemia: resolved. #Severe acute malnutrition * on tube feeding. * GI prophylaxis: PPI DVT prophylaxis: lovenox Charges/Coding Visit Charges Inpatient E&M: 79646 [facility] Hosp L3
[2021-08-18] MEDS: levoFLOXacin IV 750 MG/150 ML BAG 100 MG IV (10:17)
[2021-08-18] MEDS: Labetalol (Prefilled) 20 MG/4 ML 10 MG IV ×3 (11:16→22:54)
[2021-08-18] MEDS: Glycerin/Hypromellose/PEG400 15 ml Bottle 1 DRP EACH EYE ×3 (12:21→22:24)
[2021-08-18] MEDS: Propofol 10MG/Ml 1,000 MG/100 ML Bottle 4.7 MG CONT INF (13:29)
[2021-08-18] MEDS: 0.9% Saline Lock 10 ML Syringe IV (16:35)
[2021-08-18] MEDS: Vital High Protein 1,000 ML 55 ML GT (18:00)
[2021-08-19] VITALS (39 sets, daily range): BP systolic 96–175; BP diastolic 61–92; PULSE 11–122; RESP 16–26; TEMP 37.9–38.8; O2SAT 91–96
[2021-08-19] MEDS: Propofol 10MG/Ml 1,000 MG/100 ML Bottle 9.4 MG CONT INF (02:00)
[2021-08-19] MEDS: Ipratropium/Albuterol Sulfate 3 ML AMPUL.NEB INHALATION ×4 (02:32→17:23)
[2021-08-19] MEDS: Glycerin/Hypromellose/PEG400 15 ml Bottle 1 DRP EACH EYE ×6 (03:00→21:12)
[2021-08-19 03:48] LABS: ALB/GLOB Ratio 0.3 RATIO (0.9-2.4); AST(SGOT) 59 U/L (15-37); Alanine Aminotransfer ALT/SGPT 110 U/L (16-61); Albumin, Serum 1.6 g/dL (3.2-5.0); Alkaline Phosphatase 82 U/L (45-117); Anion Gap 3 (5-15); BUN 35 mg/dL (7-18); BUN/Creat Ratio 56.9 RATIO (10-20); Calcium,Total 8.6 mg/dL (8.5-10.1); Chloride 105 mmol/L (98-107); Creatinine, Serum 0.62 mg/dL (0.70-1.30); EST Glomerular Filtration Rate 138 mL/min (>60); Est Glom Filt Rate - Afr Amer 167 mL/min (>60); Globulin 5.1 g/dL (2.2-4.2); Glucose 149 mg/dL (74-106); Potassium 3.7 mmol/L (3.5-5.1); Protein, Total 6.7 g/dL (6.4-8.2); Sodium Level 146 mmol/L (136-145)
[2021-08-19 03:49] LABS: Absolute Lymphocyte Count 0.33 X10^3/uL (0.83-4.51); Absolute Neutrophil Count 8.9 X10^3/uL (2.0-7.7); Basophil# 0.02 X10^3/uL; Basophil% 0.2 % (0-1); Eosinophil# 0.01 X10^3/uL; Eosinophils% 0.1 % (0-5); Hemoglobin 12.6 g/dL (13.0-16.5); Lymphocyte # 0.33 X10^3/ul (0.83-4.51); Lymphocyte % 3.2 % (19-41); Mean Corp Hgb Conc 31.5 g/dL (32-36); Mean Corpuscular Hgb 28.8 pg (27.0-32.0); Mean Corpuscular Volume 91.5 fL (80-94); Monocyte# 0.89 X10^3/uL; Monocyte% 8.7 % (0-10); NRBC Flagged by Analyzer 0 % (0-5); Neutrophil # 8.87 X10^3/uL (2.7-7.7); Neutrophil % 86.7 % (47-70); POSITIVE DIFFERENTIAL YES; Platelet Count 330 K/mm3 (150-450); RBC Distribution Width CV 14.1 % (11.6-14.6); RBC Distribution Width SD 47.3 fl (35.1-43.9); Red Blood Count 4.37 M/mm3 (4.6-6.2); White Blood Count 10.2 K/mm3 (4.4-11.0)
[2021-08-19 03:59] LABS: Differential Indicated SCAN CRITERIA MET
[2021-08-19 05:20] LABS: Differential Comment SCANNED
[2021-08-19] MEDS: Acetaminophen 650 MG/20 ML UDC PO ×3 (06:04→18:27)
[2021-08-19] MEDS: guaiFENesin 10 ML UDC (200MG/10ML) 20 ML GT ×3 (06:05→18:26)
[2021-08-19] MEDS: Menthol/Lanolin/Calamine/Znox 113 GM Tube 1 APPLIC TOPICAL ×3 (06:06→21:09)
--- NOTE | 2021-08-19 06:11 | PN.CC_ITS ---
Assessment & Plan Assessment/Plan (1) Acute respiratory failure with hypoxia: (2) Pneumonia due to COVID-19 virus: PLAN: RECOMMENDATIONS: 1. Continue to wean FiO2 to maintain oxygen saturations at or above 90%. 2. Continue current antimicrobial regimen. 3. Continue prophylactic Lovenox. 4. Continue appropriate GI prophylaxis. 5. Hold diuretics today given elevated bicarbonate and sodium. 6. Tube feeds as tolerated. IMPRESSIONS: 1. Acute hypoxemic respiratory failure secondary to COVID-19 pneumonia The patient initially presented to the hospital with worsening shortness of breath and hypoxemia. The patient has completed treatment courses of remdesivir, decadron and partial course of baricitinib. Ultimately, the patient continued to decompensate from a respiratory perspective and had to be intubated on August 10. Sputum culture was positive for Klebsiella and stenotrophomonas, which is currently being addressed with antimicrobial therapy. In the interim, we will continue to wean FiO2 and PEEP as tolerated for sat urations greater than 90%. Diuretics will be utilized as needed to maintain euvolemic state, as tolerated by hemodynamics and renal function. Continue tube feeds as tolerated. Continue appropriate GI and DVT prophylaxis. 2. Obesity/hypertension/self-reported asthma/prior CVA Complicates care, management, recovery and prognosis. Continue home medications as indicated. Continue nutritional support via tube feeds and physical therapy as tolerated. TIME: 32 minutes of critical care time, independent of procedures, was spent addressing the patient's acute hypoxemic respiratory failure secondary to COVID- 19 pneumonia, review of all data and collaboration with care team. Subjective Subjective The patient was seen and examined at the bedside this morning. Events from the last 24 hours have been reviewed. Today is vent day #9. The patient was again febrile overnight with a T-max of 101.8 ?F. He remains hemodynamically stable. The patient remains on assist control mode of mechanical ventilation with an FiO2 requirement of 65% and PEEP of 8. He is sedated on fentanyl and propofol. He is currently tolerating tube feeds. The patient is currently documented to be overall net +1.1 L for the hospitalization. The patient remains on antimicrobials, prophylactic Lovenox and scheduled diuretics. The patient completed a treatment course of remdesivir, 10-day course of Decadron and partial course of baricitinib. Renal function remains stable. Objective Data Objective Data The patient's most recent lab work, culture data and imaging studies have all been personally reviewed. Sputum culture dated August 10 was positive for Klebsiella pneumoniae. Repeat sputum culture from August 15 is growing stenotrophomonas. Vital Signs: Vital Signs Temp Pulse Resp BP Pulse Ox 101.8 F H 113 H 24 H 145/70 H 93 08/19/21 05:00 08/19/21 05:00 08/19/21 05:00 08/19/21 05:00 08/19/21 05:00 Oxygen Flow Rate (L/min) 60 Oxygen Delivery Method Mechanical Ventilator Weight: 79.5 kg Body Mass Index (BMI) 30.4 Intake & Output: Intake and Output for Last 24 Hours 08/17/21 08/18/21 08/19/21 23:59 23:59 23:59 Intake Total 3365.31 / 3384.91 3060.18 / 3072.58 229.4 / 229.4 Output Total 3015 / 3015 1450 / 1850 400 / 400 Balance 350.31 / 369.91 1610.18 / 1222.58 -170.6 / -170.6 Medical Nutrition Assessment Dietitian: Malnutrition Criteria Met Start: 08/03/21 13:46 Freq: Status: Active Protocol: Document 08/18/21 11:12 RMA (Rec: 08/18/21 11:12 [id number]) Nutrition Malnutrition Evidence of Malnutrition Exists Yes Malnutrition (severe): Acute Illness/Injury Evidenced By Suboptimal Energy Intake ( Severe),Weight Loss (Severe) Clinical Problem Acute Disease or Injury Related Malnutrition Etiology severe, acute malnutrition r/t inadequate energy intake d/t COVID-19 illness Signs/Symptoms as evidenced by unintentional wt loss of 12.1kg/13% since adm (08/02/21), estimated PO intake meeting <50% of estimated nutritional needs >1 week Status Active Problem Recommendation Dietitian Recommendations/Changes NPO while intubated; Continue via OGT- Vital HP at goal rate 55mL/hour w/ 100mL H2O flush every 4 hours to provide 1320 calories, 115 g protein, and 1703mL fluid/day. As ordered, enteral nutrition support will meet 70% daily estimated calories, 100% daily estimated protein needs. Lab / Micro Data Attestation: I reviewed the patient's lab results. Result Diagrams: 08/19/21 03:30 08/19/21 03:30 Labs: Laboratory Results - last 24 hr 08/19/21 03:30: WBC 10.2, RBC 4.37 L, Hgb 12.6 L, Hct 40.0, MCV 91.5, MCH 28.8, MCHC 31.5 L, RDW Std Deviation 47.3 H, RDW Coeff of Williams 14.1, Plt Count 330, MPV 10.0, Immature Gran % (Auto) 1.100 H, Neut % (Auto) 86.7 H, Lymph % (Auto) 3.2 L , [place] % (Auto) 8.7, Eos % (Auto) 0.1, Baso % (Auto) 0.2, Absolute Neuts (auto) 8.9 H, Absolute Lymphs (auto) 0.33 L, Nucleated RBC % 0, Differential Comment SCANNED 08/19/21 03:30: Sodium 146 H, Potassium 3.7, Chloride 105, Carbon Dioxide 38.0 H , Anion Gap 3 L, BUN 35 H, Creatinine 0.62 L, Estim Creat Clear Calc 68.40, Est GFR (MDRD) Af Amer 167, Est GFR (MDRD) Non-Af 138, BUN/Creatinine Ratio 56.9 H, Glucose 149 H, Calcium 8.6, Total Bilirubin 0.30, AST 59 H, ALT 110 H, Alkaline Phosphatase 82, Total Protein 6.7, Albumin 1.6 L, Globulin 5.1 H, Albumin/Globulin Ratio 0.3 L Micro: Microbiology 08/15/21 10:30 Interface Orders Gram Stain - Final 08/15/21 10:30 Interface Orders Respiratory Culture - Final Stenotrophomonas maltophilia 08/10/21 15:30 Sputum, Induced/Lukens Gram Stain - Final 08/10/21 15:30 Sputum, Induced/Lukens Respiratory Culture - Final Klebsiella pneumoniae sp pneum 08/03/21 18:00 Blood Culture (Wb) - Anticubital Left Blood Culture - Final No growth in 5 days. 08/03/21 20:20 Blood Culture (Wb) - Right Hand Blood Culture - Final No growth in 5 days. 08/03/21 01:00 Sputum, Expectorated/Coughed Gram Stain - Final 08/03/21 01:00 Sputum, Expectorated/Coughed Respiratory Culture - Final Mixed normal respiratory christina. No Streptococcus pneumoniae, beta-hemolytic Streptococcus or Staphylococcus aureus isolated. 08/03/21 13:33 Urine, Clean Catch Legionella Antigen - Final 08/03/21 13:33 Urine, Clean Catch Streptococcus pneumoniae Antigen (M - Final Physical Exam Const alert and no apparent distress General Appearance: intubated and patient mechanically ventilated HEENT normocephalic and head/scalp atraumatic Mouth: endotracheal tube in place and OG tube in place Eyes PERRL and EOMs intact bilaterally Neck supple General: trachea midline Chest inspection of chest normal Resp Auscultation: diminished lung sounds; Negative for rales, rhonchi or wheezes Cardio regular rate and regular rhythm GI normal to inspection, nondistended, normoactive bowel sounds Extremity no clubbing, cyanosis or edema Skin no rashes or lesions noted Neuro no focal motor deficits Sensorium / Orientation: sedated on vent Charges/Coding Procedures Hospitalists Procedures: 07011 Critial Care 1st Hr
[2021-08-19] MEDS: Labetalol (Prefilled) 20 MG/4 ML 10 MG IV ×4 (08:13→21:09)
[2021-08-19] MEDS: 0.9% Saline Lock 10 ML Syringe IV ×3 (08:14→16:45)
[2021-08-19] MEDS: Aspirin 325 MG Tablet GT (10:16)
[2021-08-19] MEDS: CHLORHEXIDINE GLUC 2% CLOTH 1 EACH TOWELETTE TOPICAL (10:17)
[2021-08-19] MEDS: Enoxaparin 30 MG/0.3 ML Syringe SC ×2 (10:17→21:11)
[2021-08-19] MEDS: Chlorhexidine 15 ML PO ×2 (10:17→21:11)
[2021-08-19] MEDS: levoFLOXacin IV 750 MG/150 ML BAG 100 MG IV (11:08)
--- NOTE | 2021-08-19 14:08 | PN.HOSP_ITS ---
Subjective Subjective Patient seen and examined. Still remains intubated and sedated. He is tachycardic and tachypneic. Patient again spiked a fever overnight with a maximum temperature of 101.8 Fahrenheit. He is tolerating tube feeds. He remains on antibiotics. Objective Data Objective Data Vital Signs: Vital Signs Temp Pulse Resp BP Pulse Ox 101.3 F H 115 H 23 H 167/91 H 93 08/19/21 12:00 08/19/21 12:08 08/19/21 12:08 08/19/21 12:00 08/19/21 12:08 Oxygen Flow Rate (L/min) 60 Oxygen Delivery Method Mechanical Ventilator Weight: 175 lb 4.28 oz Body Mass Index (BMI) 30.4 Intake & Output: Intake and Output for Last 24 Hours 08/17/21 08/18/21 08/19/21 23:59 23:59 23:59 Intake Total 3365.31 / 3384.91 3060.18 / 3072.58 2145.33 / 2145.33 Output Total 3015 / 3015 1450 / 1850 825 / 825 Balance 350.31 / 369.91 1610.18 / 1222.58 1320.33 / 1320.33 Medical Nutrition Assessment Dietitian: Malnutrition Criteria Met Start: 08/03/21 13 :46 Freq: Status: Active Protocol: Document 08/18/21 11:12 RMA (Rec: 08/18/21 11:12 RMA [id number]) Nutrition Malnutrition Evidence of Malnutrition Exists Yes Malnutrition (severe): Acute Illness/Injury Evidenced By Suboptimal Energy Intake ( Severe),Weight Loss (Severe) Clinical Problem Acute Disease or Injury Related Malnutrition Etiology severe, acute malnutrition r/t inadequate energy intake d/t COVID-19 illness Signs/Symptoms as evidenced by unintentional wt loss of 12.1kg/13% since adm (08/02/21), estimated PO intake meeting <50% of estimated nutritional needs >1 week Status Active Problem Recommendation Dietitian Recommendations/Changes NPO while intubated; Continue via OGT- Vital HP at goal rate 55mL/hour w/ 100mL H2O flush every 4 hours to provide 1320 calories, 115 g protein, and 1703mL fluid/day. As ordered, enteral nutrition support will meet 70% daily estimated calories, 100% daily estimated protein needs. Lab / Micro Data Result Diagrams: 08/19/21 03:30 08/19/21 03:30 Labs: Laboratory Results - last 24 hr 08/19/21 03:30: WBC 10.2, RBC 4.37 L, Hgb 12.6 L, Hct 40.0, MCV 91.5, MCH 28.8, MCHC 31.5 L, RDW Std Deviation 47.3 H, RDW Coeff of Williams 14.1, Plt Count 330, MPV 10.0, Immature Gran % (Auto) 1.100 H, Neut % (Auto) 86.7 H, Lymph % (Auto) 3.2 L , [place] % (Auto) 8.7, Eos % (Auto) 0.1, Baso % (Auto) 0.2, Absolute Neuts (auto) 8.9 H, Absolute Lymphs (auto) 0.33 L, Nucleated RBC % 0, Differential Comment SCANNED 08/19/21 03:30: Sodium 146 H, Potassium 3.7, Chloride 105, Carbon Dioxide 38.0 H , Anion Gap 3 L, BUN 35 H, Creatinine 0.62 L, Estim Creat Clear Calc 68.40, Est GFR (MDRD) Af Amer 167, Est GFR (MDRD) Non-Af 138, BUN/Creatinine Ratio 56.9 H, Glucose 149 H, Calcium 8.6, Total Bilirubin 0.30, AST 59 H, ALT 110 H, Alkaline Phosphatase 82, Total Protein 6.7, Albumin 1.6 L, Globulin 5.1 H, Albumin/Globulin Ratio 0.3 L Micro: Microbiology 08/15/21 10:30 Interface Orders Gram Stain - Final 08/15/21 10:30 Interface Orders Respiratory Culture - Final Stenotrophomonas maltophilia 08/10/21 15:30 Sputum, Induced/Lukens Gram Stain - Final 08/10/21 15:30 Sputum, Induced/Lukens Respiratory Culture - Final Klebsiella pneumoniae sp pneum 08/03/21 18:00 Blood Culture (Wb) - Anticubital Left Blood Culture - Final No growth in 5 days. 08/03/21 20:20 Blood Culture (Wb) - Right Hand Blood Culture - Final No growth in 5 days. 08/03/21 01:00 Sputum, Expectorated/Coughed Gram Stain - Final 08/03/21 01:00 Sputum, Expectorated/Coughed Respiratory Culture - Final Mixed normal respiratory christina. No Streptococcus pneumoniae, beta-hemolytic Streptococcus or Staphylococcus aureus isolated. 08/03/21 13:33 Urine, Clean Catch Legionella Antigen - Final 08/03/21 13:33 Urine, Clean Catch Streptococcus pneumoniae Antigen (M - Final Physical Exam Const Constitutional Narrative: intubated, sedated. RASS score is -4 General Appearance: cooperative Exam Limitations: altered mental status HEENT normocephalic, head/scalp atraumatic and moist oral mucous membranes Head and Scalp: normocephalic Eyes conjunctivae normal Neck no lymphadenopathy and no JVD Resp Resp Narrative: diminished breath sounds bibasally. Intubated, sedated. tachypneic Cardio regular rhythm, S1 normal heart sound, S2 normal heart sound and no murmurs Cardio Narrative: sinus tachycardia GI normal to inspection, nondistended, normoactive bowel sounds, soft to palpation, non-tender, non-distended and hepatosplenomegaly Extremity normal to inspection and no clubbing, cyanosis or edema Skin no rashes or lesions noted Neuro oriented x3 Neuro Narrative: still intubated, sedated, RASS score is -4 Sensorium / Orientation: awake and alert Psych affect normal Psych Narrative: intubated and sedated Assessment & Plan Assessment/Plan (1) Acute respiratory failure with hypoxia: (2) Pneumonia due to COVID-19 virus: (3) Severe malnutrition: (4) Hypokalemia: PLAN: #Acute hypoxic respiratory failure due to covid 19 pneumonia and Klebsiella pneumonia * on baricitinib. Has completed a course of remdesivir and decadron. * remains intubated and sedated. * ID and pulmonology on board * titrate oxygen to maintain sats >90% * breathing treatment with bronchodilators * On IV Levaquin for Klebsiella pneumonia; to complete a 7 day course * Repeat sputum culture from August 15 growing stenotrophomonas * also on meropenem * diurese as needed to maintain euvolemic status * #Acute asthma exacerbation: resolved. remains intubated and sedated o/a of acute hypoxic respiratory failure due to covid. #Hypokalemia: resolved. #Severe acute malnutrition * on tube feeding. * GI prophylaxis: PPI DVT prophylaxis: lovenox Charges/Coding Visit Charges Inpatient E&M: 48068 Subs Hosp L3
[2021-08-19] MEDS: Vital High Protein 1,000 ML 55 ML GT (14:55)
[2021-08-19] MEDS: Propofol 10MG/Ml 1,000 MG/100 ML Bottle 4.7 MG CONT INF (15:26)
[2021-08-20] VITALS (41 sets, daily range): BP systolic 105–180; BP diastolic 57–94; PULSE 83–118; RESP 16–25; TEMP 37–38.4; O2SAT 24–94
[2021-08-20] MEDS: guaiFENesin 10 ML UDC (200MG/10ML) 20 ML GT ×4 (00:44→18:08)
[2021-08-20] MEDS: Metoprolol Tartrate 25 MG Tablet GT ×3 (01:17→21:44)
[2021-08-20] MEDS: Acetaminophen 650 MG/20 ML UDC PO ×2 (02:49→15:49)
[2021-08-20] MEDS: Glycerin/Hypromellose/PEG400 15 ml Bottle 1 DRP EACH EYE ×6 (02:49→21:45)
[2021-08-20] MEDS: Propofol 10MG/Ml 1,000 MG/100 ML Bottle 9.4 MG CONT INF ×2 (02:50→12:38)
[2021-08-20 05:41] LABS: Absolute Lymphocyte Count 0.48 X10^3/uL (0.83-4.51); Absolute Neutrophil Count 9.6 X10^3/uL (2.0-7.7); Basophil# 0.03 X10^3/uL; Basophil% 0.3 % (0-1); Eosinophil# 0.01 X10^3/uL; Eosinophils% 0.1 % (0-5); Hematocrit 38.7 % (40-54); Hemoglobin 11.8 g/dL (13.0-16.5); Lymphocyte # 0.48 X10^3/ul (0.83-4.51); Lymphocyte % 4.3 % (19-41); Mean Corp Hgb Conc 30.5 g/dL (32-36); Mean Corpuscular Volume 91.7 fL (80-94); Mean Platelet Vol. 10.6 fl (6.2-12.0); Monocyte# 0.91 X10^3/uL; Monocyte% 8.1 % (0-10); NRBC Flagged by Analyzer 0 % (0-5); Neutrophil # 9.64 X10^3/uL (2.7-7.7); Neutrophil % 85.8 % (47-70); POSITIVE DIFFERENTIAL YES; Platelet Count 396 K/mm3 (150-450); RBC Distribution Width CV 14.4 % (11.6-14.6); Red Blood Count 4.22 M/mm3 (4.6-6.2); White Blood Count 11.2 K/mm3 (4.4-11.0)
[2021-08-20 05:45] LABS: Differential Indicated SCAN CRITERIA MET
[2021-08-20 05:54] LABS: ALB/GLOB Ratio 0.3 RATIO (0.9-2.4); AST(SGOT) 77 U/L (15-37); Alanine Aminotransfer ALT/SGPT 143 U/L (16-61); Albumin, Serum 1.6 g/dL (3.2-5.0); Alkaline Phosphatase 73 U/L (45-117); Anion Gap 5 (5-15); BUN 37 mg/dL (7-18); BUN/Creat Ratio 74.7 RATIO (10-20); Calcium,Total 8.8 mg/dL (8.5-10.1); Chloride 108 mmol/L (98-107); EST Glomerular Filtration Rate 178 mL/min (>60); Est Glom Filt Rate - Afr Amer 215 mL/min (>60); Globulin 5.1 g/dL (2.2-4.2); Glucose 172 mg/dL (74-106); Potassium 3.3 mmol/L (3.5-5.1); Protein, Total 6.7 g/dL (6.4-8.2); Sodium Level 148 mmol/L (136-145)
[2021-08-20] MEDS: Menthol/Lanolin/Calamine/Znox 113 GM Tube 1 APPLIC TOPICAL ×3 (05:59→21:43)
[2021-08-20] MEDS: Potassium Chloride Oral Soln 20 MEQ/15 ML UDC 40 MEQ PO (06:37)
[2021-08-20] MEDS: Ipratropium/Albuterol Sulfate 3 ML AMPUL.NEB INHALATION ×3 (06:58→19:13)
--- NOTE | 2021-08-20 08:09 | PN.CC_ITS ---
Assessment & Plan Assessment/Plan (1) Acute respiratory failure with hypoxia: (2) Pneumonia due to COVID-19 virus: PLAN: RECOMMENDATIONS: 1. Continue to wean FiO2 to maintain oxygen saturations at or above 90%. 2. Continue current antimicrobial regimen. 3. Continue prophylactic Lovenox. 4. Continue appropriate GI prophylaxis. 5. Hold diuretics today given elevated bicarbonate and sodium. Increase free water flushes 6. Tube feeds as tolerated. IMPRESSIONS: 1. Acute hypoxemic respiratory failure secondary to COVID-19 pneumonia The patient initially presented to the hospital with worsening shortness of breath and hypoxemia. The patient has completed treatment courses of remdesivir, decadron and partial course of baricitinib. Ultimately, the patient continued to decompensate from a respiratory perspective and had to be intubated on August 10. Sputum culture was positive for Klebsiella and stenotrophomonas , which is currently being addressed with antimicrobial therapy. In the interim, we will continue to wean FiO2 and PEEP as tolerated for saturations greater than 90%. Diuretics will be utilized as needed to maintain euvolemic state, as tolerated by hemodynamics and renal function. Continue tube feeds as tolerated, but increase free water flushes given hypernatremia. Continue appropriate GI and DVT prophylaxis. 2. Obesity/hypertension/self-reported asthma/prior CVA Complicates care, management, recovery and prognosis. Continue home medications as indicated. Continue nutritional support via tube feeds and physical therapy as tolerated. TIME: 34 minutes of critical care time, independent of procedures, was spent addr essing the patient's acute hypoxemic respiratory failure secondary to COVID-19 pneumonia, review of all data and collaboration with care team. Subjective Subjective Patient is done okay over the last 24 hours. Patient was reinitiated on baseline antihypertensives with improvement of blood pressure. Patient has been persistently febrile. No spontaneous breathing trial this morning secondary to elevated PEEP and FiO2. Objective Data Objective Data Vital Signs: Vital Signs Temp Pulse Resp BP Pulse Ox 37.0 C 94 17 128/74 H 93 08/20/21 08:00 08/20/21 08:00 08/20/21 08:00 08/20/21 08:00 08/20/21 08:00 Oxygen Flow Rate (L/min) 60 Oxygen Delivery Method Mechanical Ventilator Weight: 77 kg Body Mass Index (BMI) 30.4 Intake & Output: Intake and Output for Last 24 Hours 08/18/21 08/19/21 08/20/21 23:59 23:59 23:59 Intake Total 3060.18 / 3072.58 2826.03 / 2850.13 997.24 / 997.24 Output Total 1450 / 1850 1175 / 1175 275 / 275 Balance 1610.18 / 1222.58 1651.03 / 1675.13 722.24 / 722.24 Medical Nutrition Assessment Dietitian: Malnutrition Criteria Met Start: 08/03/21 13:46 Freq: Status: Active Protocol: Document 08/18/21 11:12 RMA (Rec: 08/18/21 11:12 RMA [id number]) Nutrition Malnutrition Evidence of Malnutrition Exists Yes Malnutrition (severe): Acute Illness/Injury Evidenced By Suboptimal Energy Intake ( Severe),Weight Loss (Severe) Clinical Problem Acute Disease or Injury Related Malnutrition Etiology severe, acute malnutrition r/t inadequate energy intake d/t COVID-19 illness Signs/Symptoms as evidenced by unintentional wt loss of 12.1kg/13% since adm (08/02/21), estimated PO intake meeting <50% of estimated nutritional needs >1 week Status Active Problem Recommendation Dietitian Recommendations/Changes NPO while intubated; Continue via OGT- Vital HP at goal rate 55mL/hour w/ 100mL H2O flush every 4 hours to provide 1320 calories, 115 g protein, and 1703mL fluid/day. As ordered, enteral nutrition support will meet 70% daily estimated calories, 100% daily estimated protein needs. Lab / Micro Data Result Diagrams: 08/20/21 03:55 08/20/21 03:55 Labs: Laboratory Results - last 24 hr 08/20/21 03:55: WBC 11.2 H, RBC 4.22 L, Hgb 11.8 L, Hct 38.7 L, MCV 91.7, MCH 28.0, MCHC 30.5 L, RDW Std Deviation 48.0 H, RDW Coeff of Williams 14.4, Plt Count 396, MPV 10.6, Immature Gran % (Auto) 1.400 H, Neut % (Auto) 85.8 H, Lymph % (Auto) 4.3 L, [place] % (Auto) 8.1, Eos % (Auto) 0.1, Baso % (Auto) 0.3, Absolute Neuts (auto) 9.6 H, Absolute Lymphs (auto) 0.48 L, Nucleated RBC % 0 08/20/21 03:55: Sodium 148 H, Potassium 3.3 L, Chloride 108 H, Carbon Dioxide 35.0 H, Anion Gap 5, BUN 37 H, Creatinine 0.50 L, Estim Creat Clear Calc 68.40, Est GFR (MDRD) Af Amer 215, Est GFR (MDRD) Non-Af 178, BUN/Creatinine Ratio 74.7 H, Glucose 172 H, Calcium 8.8, Total Bilirubin 0.30, AST 77 H, ALT 143 H, Alkaline Phosphatase 73, Total Protein 6.7, Albumin 1.6 L, Globulin 5.1 H, Albumin/Globulin Ratio 0.3 L Micro: Microbiology 08/15/21 10:30 Interface Orders Gram Stain - Final 08/15/21 10:30 Interface Orders Respiratory Culture - Final Stenotrophomonas maltophilia 08/10/21 15:30 Sputum, Induced/Lukens Gram Stain - Final 08/10/21 15:30 Sputum, Induced/Lukens Respiratory Culture - Final Klebsiella pneumoniae sp pneum 08/03/21 18:00 Blood Culture (Wb) - Anticubital Left Blood Culture - Final No growth in 5 days. 08/03/21 20:20 Blood Culture (Wb) - Right Hand Blood Culture - Final No growth in 5 days. 08/03/21 01:00 Sputum, Expectorated/Coughed Gram Stain - Final 08/03/21 01:00 Sputum, Expectorated/Coughed Respiratory Culture - Final Mixed normal respiratory christina. No Streptococcus pneumoniae, beta-hemolytic Streptococcus or Staphylococcus aureus isolated. 08/03/21 13:33 Urine, Clean Catch Legionella Antigen - Final 08/03/21 13:33 Urine, Clean Catch Streptococcus pneumoniae Antigen (M - Final Physical Exam Const alert and no apparent distress General Appearance: intubated and patient mechanically ventilated HEENT normocephalic and head/scalp atraumatic Mouth: endotracheal tube in place and OG tube in place Eyes PERRL and EOMs intact bilaterally Neck supple General: trachea midline Chest inspection of chest normal Resp Auscultation: diminished lung sounds; Negative for rales, rhonchi or wheezes Cardio regular rate and regular rhythm GI normal to inspection, nondistended, normoactive bowel sounds Extremity no clubbing, cyanosis or edema Skin no rashes or lesions noted Neuro no focal motor deficits Sensorium / Orientation: sedated on vent Charges/Coding Procedures Hospitalists Procedures: 84093 Critial Care 1st Hr
[2021-08-20] MEDS: Losartan Potassium 100 MG Tablet GT (08:46)
[2021-08-20] MEDS: Enoxaparin 30 MG/0.3 ML Syringe SC ×2 (08:46→21:43)
[2021-08-20] MEDS: Aspirin 325 MG Tablet GT (08:47)
[2021-08-20] MEDS: hydroCHLOROthiazide 25 MG Tablet GT (08:47)
[2021-08-20] MEDS: Chlorhexidine 15 ML PO ×2 (08:47→21:43)
[2021-08-20] MEDS: CHLORHEXIDINE GLUC 2% CLOTH 1 EACH TOWELETTE TOPICAL (10:39)
[2021-08-20] MEDS: levoFLOXacin IV 750 MG/150 ML BAG 100 MG IV (11:08)
[2021-08-20] MEDS: Vital High Protein 1,000 ML 55 ML GT (11:17)
--- NOTE | 2021-08-20 11:36 | WOUNDNOTE ---
wound photo: sacrum
--- NOTE | 2021-08-20 12:59 | PCM.PN.HOSP ---
Subjective Subjective Still on vent Objective Data Objective Data Vital Signs: Vital Signs Temp Pulse Resp BP Pulse Ox 37.2 C 97 20 H 133/71 H 91 08/20/21 12:00 08/20/21 12:00 08/20/21 12:00 08/20/21 12:00 08/20/21 12:00 Oxygen Flow Rate (L/min) 60 Oxygen Delivery Method Mechanical Ventilator Weight: 77 kg Body Mass Index (BMI) 30.4 Intake & Output: Intake and Output for Last 24 Hours 08/18/21 08/19/21 08/20/21 23:59 23:59 23:59 Intake Total 3060.18 / 3072.58 2826.03 / 2850.13 1630.79 / 1630.79 Output Total 1450 / 1850 1175 / 1175 625 / 625 Balance 1610.18 / 1222.58 1651.03 / 1675.13 1005.79 / 1005.79 Medical Nutrition Assessment Dietitian: Malnutrition Criteria Met Start: 08/03/21 13:46 Freq: Status: Active Protocol: Document 08/20/21 11:10 AG (Rec: 08/20/21 11:10 [id number]) Nutrition Malnutrition Evidence of Malnutrition Exists Yes Malnutrition (severe): Acute Illness/Injury Evidenced By Suboptimal Energy Intake ( Severe),Weight Loss (Severe) Clinical Problem Acute Disease or Injury Related Malnutrition Etiology severe, acute malnutrition r/t inadequate energy intake d/t COVID-19 illness Signs/Symptoms as evidenced by unintentional wt loss of 16.18kg/17% since onset of acute illness, estimated PO intake meeting < 50% of estimated nutritional needs >1 week [employer] Status Active Problem Recommendation Dietitian Recommendations/Changes NPO while intubated; Continue via OGT- Vital HP at goal rate 55mL/hour w/ 100mL H2O flush every 4 hours to provide 1320 calories, 115 g protein, and 1703mL fluid/day. As ordered, enteral nutrition support will meet 70% daily estimated calories, 100% daily estimated protein needs. 1 packet Shravan BID mixed w/ 8 oz water via OGT. Lab / Micro Data Result Diagrams: 08/20/21 03:55 08/20/21 03:55 Labs: Laboratory Results - last 24 hr 08/20/21 03:55: WBC 11.2 H, RBC 4.22 L, Hgb 11.8 L, Hct 38.7 L, MCV 91.7, MCH 28.0, MCHC 30.5 L, RDW Std Deviation 48.0 H, RDW Coeff of Williams 14.4, Plt Count 396, MPV 10.6, Immature Gran % (Auto) 1.400 H, Neut % (Auto) 85.8 H, Lymph % (Auto) 4.3 L, [place] % (Auto) 8.1, Eos % (Auto) 0.1, Baso % (Auto) 0.3, Absolute Neuts (auto) 9.6 H, Absolute Lymphs (auto) 0.48 L, Nucleated RBC % 0 08/20/21 03:55: Sodium 148 H, Potassium 3.3 L, Chloride 108 H, Carbon Dioxide 35.0 H, Anion Gap 5, BUN 37 H, Creatinine 0.50 L, Estim Creat Clear Calc 68.40, Est GFR (MDRD) Af Amer 215, Est GFR (MDRD) Non-Af 178, BUN/Creatinine Ratio 74.7 H, Glucose 172 H, Calcium 8.8, Total Bilirubin 0.30, AST 77 H, ALT 143 H, Alkaline Phosphatase 73, Total Protein 6.7, Albumin 1.6 L, Globulin 5.1 H, Albumin/Globulin Ratio 0.3 L Micro: Microbiology 08/15/21 10:30 Interface Orders Gram Stain - Final 08/15/21 10:30 Interface Orders Respiratory Culture - Final Stenotrophomonas maltophilia 08/10/21 15:30 Sputum, Induced/Lukens Gram Stain - Final 08/10/21 15:30 Sputum, Induced/Lukens Respiratory Culture - Final Klebsiella pneumoniae sp pneum 08/03/21 18:00 Blood Culture (Wb) - Anticubital Left Blood Culture - Final No growth in 5 days. 08/03/21 20:20 Blood Culture (Wb) - Right Hand Blood Culture - Final No growth in 5 days. 08/03/21 01:00 Sputum, Expectorated/Coughed Gram Stain - Final 08/03/21 01:00 Sputum, Expectorated/Coughed Respiratory Culture - Final Mixed normal respiratory christina. No Streptococcus pneumoniae, beta-hemolytic Streptococcus or Staphylococcus aureus isolated. 08/03/21 13:33 Urine, Clean Catch Legionella Antigen - Final 08/03/21 13:33 Urine, Clean Catch Streptococcus pneumoniae Antigen (M - Final Physical Exam Const no apparent distress Constitutional Narrative: intubated and sedated Neck no lymphadenopathy Resp normal respiratory effort, no retractions, no use of accessory muscles and clear to auscultation bilaterally Cardio regular rate, regular rhythm, S1 normal heart sound and S2 normal heart sound GI normal to inspection, nondistended, normoactive bowel sounds, soft to palpation, non-tender and non-distended Neuro Sensorium / Orientation: awake and alert Assessment & Plan Assessment/Plan (1) Acute respiratory failure with hypoxia: (2) Pneumonia due to COVID-19 virus: PLAN: 1. acute hypoxic respiratory failure 2/2 COVID 19 pneumonia and klebsiella pneumonia and stentrophomonas pneumonia wean oxygen as able diuresis currently held intubated on 08/10 2. COVID 19 pneumonia completed remdesivir, dexamethasone. received 7 days of baricitinib 3. Klebsiella and stenotrophomonas pneumonia on meropenem and levofloxacin 4. VTE prophylaxis: LMWH Charges/Coding Visit Charges Inpatient E&M: 95856 Subs Hosp L2
[2021-08-20] MEDS: Juven (unflavored) Packet 1 PACKET GT (15:50)
[2021-08-20] MEDS: Propofol 10MG/Ml 1,000 MG/100 ML Bottle 11.8 MG CONT INF (20:15)
[2021-08-21] VITALS (36 sets, daily range): BP systolic 101–146; BP diastolic 57–81; PULSE 91–120; RESP 17–28; TEMP 37.5–38.2; O2SAT 89–96
[2021-08-21] MEDS: guaiFENesin 10 ML UDC (200MG/10ML) 20 ML GT ×5 (00:06→23:43)
[2021-08-21] MEDS: Glycerin/Hypromellose/PEG400 15 ml Bottle 1 DRP EACH EYE ×6 (02:03→21:16)
[2021-08-21] MEDS: Propofol 10MG/Ml 1,000 MG/100 ML Bottle 11.8 MG CONT INF (04:12)
[2021-08-21 04:13] LABS: Absolute Lymphocyte Count 0.59 X10^3/uL (0.83-4.51); Absolute Neutrophil Count 8.3 X10^3/uL (2.0-7.7); Basophil# 0.03 X10^3/uL; Basophil% 0.3 % (0-1); Eosinophil# 0.04 X10^3/uL; Eosinophils% 0.4 % (0-5); Hematocrit 34.1 % (40-54); Hemoglobin 10.8 g/dL (13.0-16.5); Lymphocyte # 0.59 X10^3/ul (0.83-4.51); Lymphocyte % 5.9 % (19-41); Mean Corp Hgb Conc 31.7 g/dL (32-36); Mean Corpuscular Volume 91.4 fL (80-94); Mean Platelet Vol. 10.1 fl (6.2-12.0); Monocyte# 0.79 X10^3/uL; NRBC Flagged by Analyzer 0 % (0-5); Neutrophil # 8.31 X10^3/uL (2.7-7.7); Neutrophil % 83.8 % (47-70); POSITIVE DIFFERENTIAL YES; Platelet Count 351 K/mm3 (150-450); RBC Distribution Width CV 14.6 % (11.6-14.6); RBC Distribution Width SD 48.2 fl (35.1-43.9); Red Blood Count 3.73 M/mm3 (4.6-6.2); White Blood Count 9.9 K/mm3 (4.4-11.0)
[2021-08-21 04:18] LABS: Differential Indicated SCAN CRITERIA MET
[2021-08-21 04:32] LABS: ALB/GLOB Ratio 0.3 RATIO (0.9-2.4); AST(SGOT) 75 U/L (15-37); Alanine Aminotransfer ALT/SGPT 156 U/L (16-61); Albumin, Serum 1.5 g/dL (3.2-5.0); Alkaline Phosphatase 70 U/L (45-117); Anion Gap 4 (5-15); BUN 36 mg/dL (7-18); BUN/Creat Ratio 91.6 RATIO (10-20); Calcium,Total 8.6 mg/dL (8.5-10.1); Chloride 108 mmol/L (98-107); Creatinine, Serum 0.39 mg/dL (0.70-1.30); EST Glomerular Filtration Rate 232 mL/min (>60); Est Glom Filt Rate - Afr Amer 281 mL/min (>60); Globulin 4.6 g/dL (2.2-4.2); Glucose 134 mg/dL (74-106); Potassium 3.5 mmol/L (3.5-5.1); Protein, Total 6.1 g/dL (6.4-8.2); Sodium Level 148 mmol/L (136-145)
[2021-08-21] MEDS: Menthol/Lanolin/Calamine/Znox 113 GM Tube 1 APPLIC TOPICAL ×3 (05:29→21:15)
[2021-08-21] MEDS: Acetaminophen 650 MG/20 ML UDC PO ×2 (05:30→11:56)
[2021-08-21] MEDS: Vital High Protein 1,000 ML 55 ML GT (05:30)
[2021-08-21] MEDS: TITRATION PARAMETER CHANGE 1 EACH IV (05:58)
[2021-08-21 06:10] LABS: Differential Comment SCANNED
--- NOTE | 2021-08-21 06:30 | RAD_ITS ---
STUDY: X-RAY CHEST REASON FOR EXAM: Male, 66 years old. Respiratory Failure TECHNIQUE: Single AP portable view of the chest. COMPARISON: Comparison is made with prior examination dated 08/15/2021 at 9:30 AM. FINDINGS: The tip of the endotracheal tube is at 4.2 cm proximal to the li. An orogastric tube is seen with the tip in the body of the stomach. EKG electrodes are seen. Stable bilateral pulmonary infiltrates worse in the left lower lobe. There is no demonstrated pleural abnormality. Normal size heart. Normal mediastinum and jesus. Normal visualized pulmonary arteries. Normal visualized aortic arch and descending thoracic aorta. There are diffuse degenerative changes of the visualized thoracic spine. Normal visualized ribs, clavicles, and shoulders. There is no demonstrated abnormality of the visualized soft tissue structures of the upper abdomen. RAD/Chest 1 View (Portable) IMPRESSION: The support tubes are in good position. Stable bilateral pulmonary infiltrates worse in the left lower lobe. Electronically Signed: Mark Chung MD at 9:08 EST , Service support ,
--- NOTE | 2021-08-21 07:04 | PN.CC_ITS ---
Assessment & Plan Assessment/Plan (1) Acute respiratory failure with hypoxia: (2) Pneumonia due to COVID-19 virus: PLAN: RECOMMENDATIONS: 1. Continue to wean FiO2 to maintain oxygen saturations at or above 90%. 2. Continue current antimicrobial regimen. 3. Continue prophylactic Lovenox. 4. Continue appropriate GI prophylaxis. 5. Challenge with diuretics given increased infiltrates on chest x-ray 6. Tube feeds as tolerated. Increase free water flushes IMPRESSIONS: 1. Acute hypoxemic respiratory failure secondary to COVID-19 pneumonia The patient initially presented to the hospital with worsening shortness of breath and hypoxemia. The patient has completed treatment courses of remdesivir, decadron and partial course of baricitinib. Ultimately, the patient continued to decompensate from a respiratory perspective and had to be intubated on August 10. Sputum culture was positive for Klebsiella and stenotrop homonas, which is currently being addressed with antimicrobial therapy. In the interim, we will continue to wean FiO2 and PEEP as tolerated for saturations greater than 90%. Diuretics will be utilized as needed to maintain euvolemic state, as tolerated by hemodynamics and renal function. We will dose with Lasix today. Continue tube feeds as tolerated, but increase free water flushes given hypernatremia. Continue appropriate GI and DVT prophylaxis. 2. Obesity/hypertension/self-reported asthma/prior CVA Complicates care, management, recovery and prognosis. Continue home medications as indicated. Continue nutritional support via tube feeds and physical therapy as tolerated. TIME: 32 minutes of critical care time, independent of procedures, was spent addressing the patient's acute hypoxemic respiratory failure secondary to COVID- 19 pneumonia, review of all data and collaboration with care team. Subjective Subjective Patient with worsening hypoxia overnight. Respiratory had reported some thick secretions with no obvious plugging. Patient continues to withdraw, but not very interactive. Objective Data Objective Data Vital Signs: Vital Signs Temp Pulse Resp BP Pulse Ox 38.1 C H 109 H 20 H 137/63 H 93 08/21/21 04:00 08/21/21 06:00 08/21/21 06:00 08/21/21 06:00 08/21/21 06:00 Oxygen Flow Rate (L/min) 60 Oxygen Delivery Method Mechanical Ventilator Weight: 79.2 kg Body Mass Index (BMI) 30.4 Intake & Output: Intake and Output for Last 24 Hours 08/19/21 08/20/2108/21/21 23:59 23:59 23:59 Intake Total 2826.03 / 2850.13 2764.54 / 2887.01 437.33 / 437.33 Output Total 1175 / 1175 1225 / 1675 850 / 850 Balance 1651.03 / 1675.13 1539.54 / 1212.01 -412.67 / -412.67 Medical Nutrition Assessment Dietitian: Malnutrition Criteria Met Start: 08/03/21 13:46 Freq: Status: Active Protocol: Document 08/20/21 11:10 AG (Rec: 08/20/21 11:10 AG [id number]) Nutrition Malnutrition Evidence of Malnutrition Exists Yes Malnutrition (severe): Acute Illness/Injury Evidenced By Suboptimal Energy Intake ( Severe),Weight Loss (Severe) Clinical Problem Acute Disease or Injury Related Malnutrition Etiology severe, acute malnutrition r/t inadequate energy intake d/t COVID-19 illness Signs/Symptoms as evidenced by unintentional wt loss of 16.18kg/17% since onset of acute illness, estimated PO intake meeting < 50% of estimated nutritional 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 As ordered, enteral nutrition support will meet 70% daily estimated calories, 100% daily estimated protein needs. 1 packet Shravan BID mixed w/ 8 oz water via OGT. Lab / Micro Data Result Diagrams: 08/21/21 04:05 08/21/21 04:05 Labs: Laboratory Results - last 24 hr 08/21/21 04:05: WBC 9.9, RBC 3.73 L, Hgb 10.8 L, Hct 34.1 L, MCV 91.4, MCH 29.0, MCHC 31.7 L, RDW Std Deviation 48.2 H, RDW Coeff of Williams 14.6, Plt Count 351, MPV 10.1, Immature Gran % (Auto) 1.600 H, Neut % (Auto) 83.8 H, Lymph % (Auto) 5.9 L , [place] % (Auto) 8.0, Eos % (Auto) 0.4, Baso % (Auto) 0.3, Absolute Neuts (auto) 8.3 H, Absolute Lymphs (auto) 0.59 L, Nucleated RBC % 0, Differential Comment SCANNED 08/21/21 04:05: Sodium 148 H, Potassium 3.5, Chloride 108 H, Carbon Dioxide 36.0 H, Anion Gap 4 L, BUN 36 H, Creatinine 0.39 L, Estim Creat Clear Calc 68.40, Est GFR (MDRD) Af Amer 281, Est GFR (MDRD) Non-Af 232, BUN/Creatinine Ratio 91.6 H, Glucose 134 H, Calcium 8.6, Total Bilirubin 0.30, AST 75 H, ALT 156 H, Alkaline Phosphatase 70, Total Protein 6.1 L, Albumin 1.5 L, Globulin 4.6 H, Albumin/Globulin Ratio 0.3 L Micro: Microbiology 08/15/21 10:30 Interface Orders Gram Stain - Final 08/15/21 10:30 Interface Orders Respiratory Culture - Final Stenotrophomonas maltophilia 08/10/21 15:30 Sputum, Induced/Lukens Gram Stain - Final 08/10/21 15:30 Sputum, Induced/Lukens Respiratory Culture - Final Klebsiella pneumoniae sp pneum 08/03/21 18:00 Blood Culture (Wb) - Anticubital Left Blood Culture - Final No growth in 5 days. 08/03/21 20:20 Blood Culture (Wb) - Right Hand Blood Culture - Final No growth in 5 days. 08/03/21 01:00 Sputum, Expectorated/Coughed Gram Stain - Final 08/03/21 01:00 Sputum, Expectorated/Coughed Respiratory Culture - Final Mixed normal respiratory christina. No Streptococcus pneumoniae, beta-hemolytic Streptococcus or Staphylococcus aureus isolated. 08/03/21 13:33 Urine, Clean Catch Legionella Antigen - Final 08/03/21 13:33 Urine, Clean Catch Streptococcus pneumoniae Antigen (M - Sarita l Physical Exam Const alert and no apparent distress General Appearance: intubated and patient mechanically ventilated HEENT normocephalic and head/scalp atraumatic Mouth: endotracheal tube in place and OG tube in place Eyes PERRL and EOMs intact bilaterally Neck supple General: trachea midline Chest inspection of chest normal Chest: symmetrical chest wall rise; Negative for crepitus Resp Auscultation: rhonchi throughout and diminished lung sounds; Negative for rales or wheezes Cardio regular rate and regular rhythm GI normal to inspection, nondistended, normoactive bowel sounds Extremity no clubbing, cyanosis or edema Skin no rashes or lesions noted Neuro no focal motor deficits Sensorium / Orientation: sedated on vent Charges/Coding Procedures Hospitalists Procedures: 95385 Critial Care 1st Hr
[2021-08-21] MEDS: Ipratropium/Albuterol Sulfate 3 ML AMPUL.NEB INHALATION ×3 (07:16→20:13)
[2021-08-21] MEDS: Furosemide 40 MG/4 ML Vial IV (07:39)
[2021-08-21] MEDS: Juven (unflavored) Packet 1 PACKET GT ×2 (07:41→17:18)
[2021-08-21] MEDS: Potassium Chloride Oral Soln 20 MEQ/15 ML UDC 40 MEQ PO (07:41)
[2021-08-21] MEDS: 0.9% Saline Lock 10 ML Syringe IV (07:46)
[2021-08-21] MEDS: Metoprolol Tartrate 25 MG Tablet GT ×2 (07:49→21:17)
[2021-08-21] MEDS: Aspirin 325 MG Tablet GT (07:49)
[2021-08-21] MEDS: hydroCHLOROthiazide 25 MG Tablet GT (07:49)
[2021-08-21] MEDS: levoFLOXacin IV 750 MG/150 ML BAG 100 MG IV (10:00)
[2021-08-21] MEDS: Chlorhexidine 15 ML PO ×2 (10:02→21:22)
[2021-08-21] MEDS: CHLORHEXIDINE GLUC 2% CLOTH 1 EACH TOWELETTE TOPICAL (10:02)
[2021-08-21] MEDS: Enoxaparin 30 MG/0.3 ML Syringe SC ×2 (10:02→21:16)
--- NOTE | 2021-08-21 11:17 | CASEMGMT ---
Social Work SW participated in ICU rounds, pt's present. SW spoke w/ after rounds, offered support. Pt's has 3 children, two are supportive, one does not speak w/pt or . We spoke about pt's wishes. She states they never spoke about it. However, after further discussion, she states she thinks he would want everything done. SW let know that SW remains available for support and to talk through things as pt's stay continues. states understanding. SW will continue to follow. JERMAINE Jacobo
--- NOTE | 2021-08-21 12:41 | PCM.PN.HOSP ---
Subjective Subjective Still on vent. 80% FiO2. Objective Data Objective Data Vital Signs: Vital Signs Temp Pulse Resp BP Pulse Ox 37.7 C H 102 H 18 145/81 H 92 08/21/21 12:00 08/21/21 12:33 08/21/21 12:33 08/21/21 12:00 08/21/21 12:33 Oxygen Flow Rate (L/min) 60 Oxygen Delivery Method Mechanical Ventilator Weight: 79.2 kg Body Mass Index (BMI) 30.4 Intake & Output: Intake and Output for Last 24 Hours 08/19/21 08/20/21 08/21/21 23:59 23:59 23:59 Intake Total 2826.03 / 2850.13 2764.54 / 2887.01 2293.73 / 2293.73 Output Total 1175 / 1175 1225 / 1675 2375 / 2375 Balance 1651.03 / 1675.13 1539.54 / 1212.01 -81.27 / -81.27 Medical Nutrition Assessment Dietitian: Malnutrition Criteria Met Start: 08/03/21 13:46 Freq: Status: Active Protocol: Document 08/20/21 11:10 AG (Rec: 08/20/21 11:10 AG [id number]) Nutrition Malnutrition Evidence of Malnutrition Exists Yes Malnutrition (severe): Acute Illness/Injury Evidenced By Suboptimal Energy Intake ( Severe),Weight Loss (Severe) Clinical Problem Acute Disease or Injury Related Malnutrition Etiology severe, acute malnutrition r/t inadequate energy intake d/t COVID-19 illness Signs/Symptoms as evidenced by unintentional wt loss of 16.18kg/17% since onset of acute illness, estimated PO intake meeting < 50% of estimated nutritional needs >1 week 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 As ordered, enteral nutrition support will meet 70% daily estimated calories, 100% daily estimated protein needs. 1 packet Shravan BID mixed w/ 8 oz water via OGT. Lab / Micro Data Result Diagrams: 08/21/21 04:05 08/21/21 04:05 Labs: Laboratory Results - last 24 hr 08/21/21 04:05: WBC 9.9, RBC 3.73 L, Hgb 10.8 L, Hct 34.1 L, MCV 91.4, MCH 29.0, MCHC 31.7 L, RDW Std Deviation 48.2 H, RDW Coeff of Williams 14.6, Plt Count 351, MPV 10.1, Immature Gran % (Auto) 1.600 H, Neut % (Auto) 83.8 H, Lymph % (Auto) 5.9 L, [place] % (Auto) 8.0, Eos % (Auto) 0.4, Baso % (Auto) 0.3, Absolute Neuts (auto) 8.3 H, Absolute Lymphs (auto) 0.59 L, Nucleated RBC % 0, Differential Comment SCANNED 08/21/21 04:05: Sodium 148 H, Potassium 3.5, Chloride 108 H, Carbon Dioxide 36.0 H, Anion Gap 4 L, BUN 36 H, Creatinine 0.39 L, Estim Creat Clear Calc 68.40, Est GFR (MDRD) Af Amer 281, Est GFR (MDRD) Non-Af 232, BUN/Creatinine Ratio 91.6 H, Glucose 134 H, Calcium 8.6, Total Bilirubin 0.30, AST 75 H, ALT 156 H, Alkaline Phosphatase 70, Total Protein 6.1 L, Albumin 1.5 L, Globulin 4.6 H, Albumin/Globulin Ratio 0.3 L Micro: Microbiology 08/15/21 10:30 Interface Orders Gram Stain - Final 08/15/21 10:30 Interface Orders Respiratory Culture - Final Stenotrophomonas maltophilia 08/10/21 15:30 Sputum, Induced/Lukens Gram Stain - Final 08/10/21 15:30 Sputum, Induced/Lukens Respiratory Culture - Final Klebsiella pneumoniae sp pneum 08/03/21 18:00 Blood Culture (Wb) - Anticubital Left Blood Culture - Final No growth in 5 days. 08/03/21 20:20 Blood Culture (Wb) - Right Hand Blood Culture - Final No growth in 5 days. 08/03/21 01:00 Sputum, Expectorated/Coughed Gram Stain - Final 08/03/21 01:00 Sputum, Expectorated/Coughed Respiratory Culture - Final Mixed normal respiratory christina. No Streptococcus pneumoniae, beta-hemolytic Streptococcus or Staphylococcus aureus isolated. 08/03/21 13:33 Urine, Clean Catch Legionella Antigen - Final 08/03/21 13:33 Urine, Clean Catch Streptococcus pneumoniae Antigen (M - Final Radiography Diagnostic Testing: Radiology Impression Chest X-Ray 08/21/21 06:30 IMPRESSION: The support tubes are in good position. Stable bilateral pulmonary infiltrates worse in the left lower lobe. Electronically Signed: Mark Chung MD at 9:08 EST , Service support , Physical Exam Const Constitutional Narrative: intubated and sedated. Resp normal respiratory effort, no retractions, no use of accessory muscles and clear to auscultation bilaterally Cardio regular rate, regular rhythm, S1 normal heart sound and S2 normal heart sound GI normal to inspection, nondistended, normoactive bowel sounds, soft to palpation, non-tender and non-distended Extremity normal to inspection Assessment & Plan Assessment/Plan (1) Acute respiratory failure with hypoxia: (2) Pneumonia due to COVID-19 virus: PLAN: 1. acute hypoxic respiratory failure 2/2 COVID 19 pneumonia and klebsiella pneumonia and stentrophomonas pneumonia wean oxygen as able diuresis currently held intubated on 08/10 2. COVID 19 pneumonia Unvaccinated completed remdesivir, dexamethasone. received 7 days of baricitinib Quarantine completed 3. Klebsiella and stenotrophomonas pneumonia on meropenem and levofloxacin 4. VTE prophylaxis: LMWH Greater than 40 minutes of which greater than 50% of the time was discussed with patient's about his case and regards to Covid as well as his other bacterial pneumonias. Additionally he is also spent consoling her as she was having difficult time as she contracted Covid and is doing better but both are unvaccinated, he, according to her, due to his history of strokes. Charges/Coding Visit Charges Inpatient E&M: 38146 Subs Hosp L3
[2021-08-21] MEDS: Propofol 10MG/Ml 1,000 MG/100 ML Bottle 9.5 MG CONT INF (14:00)
[2021-08-22] VITALS (36 sets, daily range): BP systolic 95–155; BP diastolic 50–82; PULSE 94–119; RESP 14–24; TEMP 36.7–38.2; O2SAT 89–96
[2021-08-22] MEDS: Propofol 10MG/Ml 1,000 MG/100 ML Bottle 9.5 MG CONT INF ×3 (00:31→17:35)
[2021-08-22] MEDS: Glycerin/Hypromellose/PEG400 15 ml Bottle 1 DRP EACH EYE ×6 (01:47→21:00)
[2021-08-22] MEDS: Vital High Protein 1,000 ML 55 ML GT (01:47)
[2021-08-22 03:52] LABS: Absolute Lymphocyte Count 0.72 X10^3/uL (0.83-4.51); Absolute Neutrophil Count 7.4 X10^3/uL (2.0-7.7); Basophil# 0.03 X10^3/uL; Basophil% 0.3 % (0-1); Eosinophil# 0.14 X10^3/uL; Eosinophils% 1.6 % (0-5); Hematocrit 33.7 % (40-54); Hemoglobin 10.4 g/dL (13.0-16.5); Lymphocyte # 0.72 X10^3/ul (0.83-4.51); Mean Corp Hgb Conc 30.9 g/dL (32-36); Mean Corpuscular Hgb 28.3 pg (27.0-32.0); Mean Corpuscular Volume 91.8 fL (80-94); Mean Platelet Vol. 9.9 fl (6.2-12.0); Monocyte# 0.52 X10^3/uL; Monocyte% 5.8 % (0-10); NRBC Flagged by Analyzer 0 % (0-5); Neutrophil # 7.37 X10^3/uL (2.7-7.7); Platelet Count 352 K/mm3 (150-450); RBC Distribution Width CV 14.6 % (11.6-14.6); Red Blood Count 3.67 M/mm3 (4.6-6.2)
[2021-08-22 04:12] LABS: ALB/GLOB Ratio 0.3 RATIO (0.9-2.4); AST(SGOT) 60 U/L (15-37); Alanine Aminotransfer ALT/SGPT 138 U/L (16-61); Albumin, Serum 1.4 g/dL (3.2-5.0); Alkaline Phosphatase 70 U/L (45-117); Anion Gap 4 (5-15); BUN 36 mg/dL (7-18); BUN/Creat Ratio 94.2 RATIO (10-20); Calcium,Total 8.6 mg/dL (8.5-10.1); Chloride 108 mmol/L (98-107); Creatinine, Serum 0.38 mg/dL (0.70-1.30); EST Glomerular Filtration Rate 240 mL/min (>60); Est Glom Filt Rate - Afr Amer 290 mL/min (>60); Globulin 4.6 g/dL (2.2-4.2); Glucose 132 mg/dL (74-106); Potassium 3.5 mmol/L (3.5-5.1); Sodium Level 148 mmol/L (136-145)
[2021-08-22] MEDS: CHLORHEXIDINE GLUC 2% CLOTH 1 EACH TOWELETTE TOPICAL (06:22)
[2021-08-22] MEDS: guaiFENesin 10 ML UDC (200MG/10ML) 20 ML GT ×3 (06:22→17:30)
[2021-08-22] MEDS: Menthol/Lanolin/Calamine/Znox 113 GM Tube 1 APPLIC TOPICAL ×3 (06:23→20:59)
[2021-08-22] MEDS: Ipratropium/Albuterol Sulfate 3 ML AMPUL.NEB INHALATION ×3 (06:26→18:59)
[2021-08-22] MEDS: TITRATION PARAMETER CHANGE 1 EACH IV (07:16)
--- NOTE | 2021-08-22 08:22 | PN.CC_ITS ---
Assessment & Plan Assessment/Plan (1) Acute respiratory failure with hypoxia: (2) Pneumonia due to COVID-19 virus: PLAN: RECOMMENDATIONS: 1. Continue to wean FiO2 to maintain oxygen saturations at or above 90%. 2. Continue current antimicrobial regimen. 3. Continue prophylactic Lovenox. 4. Continue appropriate GI prophylaxis. 5. Challenge with diuretics aggressively given increased infiltrates on chest x-ray 6. Tube feeds as tolerated. Increase free water flushes 7. Discuss with about possible trach and PEG IMPRESSIONS: 1. Acute hypoxemic respiratory failure secondary to COVID-19 pneumonia The patient initially presented to the hospital with worsening shortness of breath and hypoxemia. The patient has completed treatment courses of remdesivir, decadron and partial course of baricitinib. Ultimately, the patient continued to decompensate from a respiratory perspective and had to be intubated on August 10. Sputum culture was positive for Klebsiella and stenotrophomonas, which is currently being addressed with antimicrobial therapy. In the interim, we will continue to wean FiO2 and PEEP as tolerated for saturations greater than 90%. Diuretics will be utilized as needed to maintain euvolemic state, as tolerated by hemodynamics and renal function. We will dose with Lasix today if blood pressure allows. Continue tube feeds as tolerated, but increase free water flushes given hypernatremia. Continue appropriate GI and DVT prophylaxis. Clinical suspicion for an element of thick secretions s econdary to previously cultured stenotrophomonas as this tends to be difficult to eradicate 2. Obesity/hypertension/self-reported asthma/prior CVA Complicates care, management, recovery and prognosis. Continue home medications as indicated. Continue nutritional support via tube feeds and physical therapy as tolerated. TIME: 35 minutes of critical care time, independent of procedures, was spent addressing the patient's acute hypoxemic respiratory failure secondary to COVID- 19 pneumonia, review of all data and collaboration with care team. Subjective Subjective Patient did okay overnight. Patient with good response to Lasix yesterday and was able to be weaned to 75% FiO2. Patient does open his eyes and interact. Patient tolerating tube feeds. Nursing and respiratory are reporting thick secretions. Objective Data Objective Data Vital Signs: Vital Signs Temp Pulse Resp BP Pulse Ox 36.8 C 95 19 H 124/62 H 92 08/22/21 08:00 08/22/21 08:00 08/22/21 08:00 08/22/21 08:00 08/22/21 08:00 Oxygen Flow Rate (L/min) 60 Oxygen Delivery Method Mechanical Ventilator Weight: 78.9 kg Body Mass Index (BMI) 30.4 Intake & Output: Intake and Output for Last 24 Hours 08/20/21 08/21/21 08/22/21 23:59 23:59 23:59 Intake Total 2764.54 / 2887.01 3673.95 / 4095.95 2254.46 / 2254.46 Output Total 1225 / 1675 2900 / 3150 600 / 600 Balance 1539.54 / 1212.01 773.95 / 945.95 1654.46 / 1654.46 Medical Nutrition Assessment Dietitian: Malnutrition Criteria Met Start: 08/03/21 13:46 Freq: Status: Active Protocol: Document 08/20/21 11:10 AG (Rec: 08/20/21 11:10 AG [id number]) Nutrition Malnutrition Evidence of Malnutrition Exists Yes Malnutrition (severe): Acute Illness/Injury Evidenced By Suboptimal Energy Intake ( Severe),Weight Loss (Severe) Clinical Problem Acute Disease or Injury Related Malnutrition Etiology severe, acute malnutrition r/t inadequate energy intake d/t COVID-19 illness Signs/Symptoms as evidenced by unintentional wt loss of 16.18kg/17% since onset of acute illness, estimated PO intake meeting < 50% of estimated nutritional needs >1 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 As ordered, enteral nutrition support will meet 70% daily estimated calories, 100% daily estimated protein needs. 1 packet Shravan BID mixed w/ 8 oz water via OGT. Lab / Micro Data Result Diagrams: 08/22/21 03:45 08/22/21 03:45 Labs: Laboratory Results - last 24 hr 08/22/21 03:45: WBC 9.0, RBC 3.67 L, Hgb 10.4 L, Hct 33.7 L, MCV 91.8, MCH 28.3, MCHC 30.9 L, RDW Std Deviation 48.0 H, RDW Coeff of Williams 14.6, Plt Count 352, MPV 9.9, Immature Gran % (Auto) 2.300 H, Neut % (Auto) 82.0 H, Lymph % (Auto) 8.0 L, [place] % (Auto) 5.8, Eos % (Auto) 1.6, Baso % (Auto) 0.3, Absolute Neuts (auto) 7.4, Absolute Lymphs (auto) 0.72 L, Nucleated RBC % 0 08/22/21 03:45: Sodium 148 H, Potassium 3.5, Chloride 108 H, Carbon Dioxide 36.0 H, Anion Gap 4 L, BUN 36 H, Creatinine 0.38 L, Estim Creat Clear Calc 68.40, Est GFR (MDRD) Af Amer 290, Est GFR (MDRD) Non-Af 240, BUN/Creatinine Ratio 94.2 H, Glucose 132 H, Calcium 8.6, Total Bilirubin 0.40, AST 60 H, ALT 138 H, Alkaline Phosphatase 70, Total Protein 6.0 L, Albumin 1.4 L, Globulin 4.6 H, Albumin/Globulin Ratio 0.3 L Micro: Microbiology 08/15/21 10:30 Interface Orders Gram Stain - Final 08/15/21 10:30 Interface Orders Respiratory Culture - Final Stenotrophomonas maltophilia 08/10/21 15:30 Sputum, Induced/Lukens Gram Stain - Final 08/10/21 15:30 Sputum, Induced/Lukens Respiratory Culture - Final Klebsiella pneumoniae sp pneum 08/03/21 18:00 Blood Culture (Wb) - Anticubital Left Blood Culture - Final No growth in 5 days. 08/03/21 20:20 Blood Culture (Wb) - Right Hand Blood Culture - Final No growth in 5 days. 08/03/21 01:00 Sputum, Expectorated/Coughed Gram Stain - Final 08/03/21 01:00 Sputum, Expectorated/Coughed Respiratory Culture - Final Mixed normal respiratory christina. No Streptococcus pneumoniae, beta-hemolytic Streptococcus or Staphylococcus aureus isolated. 08/03/21 13:33 Urine, Clean Catch Legionella Antigen - Final 08/03/21 13:33 Urine, Clean Catch Streptococcus pneumoniae Antigen (M - Final Radiography Diagnostic Testing: Radiology Impression Chest X-Ray 08/21/21 06:30 IMPRESSION: The support tubes are in good position. Stable bilateral pulmonary infiltrates worse in the left lower lobe. Electronically Signed: Mark Chung MD at 9:08 EST , Service support , ADDENDUM: 08/21/21 1347 IMPRESSION: The support tubes are in good position. Stable bilateral pulmonary infiltrates worse in the left lower lobe. Electronically Signed: Mark Chung MD at 9:08 EST , Service support , Physical Exam Const alert and no apparent distress General Appearance: intubated and patient mechanically ventilated HEENT normocephalic and head/scalp atraumatic Mouth: endotracheal tube in place and OG tube in place Eyes PERRL and EOMs intact bilaterally Neck supple General: trachea midline Chest inspection of chest normal Chest: symmetrical chest wall rise; Negative for crepitus Resp Auscultation: rhonchi throughout and diminished lung sounds; Negative for rales or wheezes Cardio regular rate and regular rhythm GI normal to inspection, nondistended, normoactive bowel sounds Extremity no clubbing, cyanosis or edema Skin no rashes or lesions noted Neuro no focal motor deficits Sensorium / Orientation: sedated on vent Charges/Coding Procedures Hospitalists Procedures: 93135 Critial Care 1st Hr
[2021-08-22] MEDS: Metoprolol Tartrate 25 MG Tablet GT ×2 (08:29→21:00)
[2021-08-22] MEDS: Juven (unflavored) Packet 1 PACKET GT ×2 (08:29→17:30)
[2021-08-22] MEDS: Potassium Chloride Oral Soln 20 MEQ/15 ML UDC 40 MEQ PO (08:29)
[2021-08-22] MEDS: Furosemide 40 MG/4 ML Vial IV (08:48)
[2021-08-22] MEDS: Acetaminophen 650 MG/20 ML UDC PO ×2 (10:01→20:56)
[2021-08-22] MEDS: Enoxaparin 30 MG/0.3 ML Syringe SC ×2 (10:02→21:00)
[2021-08-22] MEDS: hydroCHLOROthiazide 25 MG Tablet GT (10:02)
[2021-08-22] MEDS: Chlorhexidine 15 ML PO ×2 (10:02→20:59)
[2021-08-22] MEDS: Aspirin 325 MG Tablet GT (10:02)
[2021-08-22] MEDS: Losartan Potassium 100 MG Tablet GT (10:02)
[2021-08-22] MEDS: levoFLOXacin IV 750 MG/150 ML BAG 100 MG IV (10:34)
--- NOTE | 2021-08-22 11:47 | PN.HOSP_ITS ---
Subjective Subjective Oxygen weaned down to 75%. Objective Data Objective Data Vital Signs: Vital Signs Temp Pulse Resp BP Pulse Ox 37.6 C H 99 21 H 121/64 H 91 08/22/21 11:00 08/22/21 11:40 08/22/21 11:00 08/22/21 11:00 08/22/21 11:00 Oxygen Flow Rate (L/min) 60 Oxygen Delivery Method Mechanical Ventilator Weight: 78.9 kg Body Mass Index (BMI) 30.4 Intake & Output: Intake and Output for Last 24 Hours 08/20/21 08/21/21 08/22/21 23:59 23:59 23:59 Intake Total 2764.54 / 2887.01 3673.95 / 4095.95 2944.17 / 2944.17 Output Total 1225 / 1675 2900 / 3150 1850 / 1850 Balance 1539.54 / 1212.01 773.95 / 945.95 1094.17 / 1094.17 Medical Nutrition Assessment Dietitian: Malnutrition Criteria Met Start: 08/03/21 13:46 Freq: Status: Active Protocol: Document 08/20/21 11:10 AG (Rec: 08/20/21 11:10 [id number]) Nutrition Malnutrition Evidence of Malnutrition Exists Yes Malnutrition (severe): Acute Illness/Injury Evidenced By Suboptimal Energy Intake ( Severe),Weight Loss (Severe) Clinical Problem Acute Disease or Injury Related Malnutrition Etiology severe, acute malnutrition r/t inadequate energy intake d/t COVID-19 illness Signs/Symptoms as evidenced by unintentional wt loss of 16.18kg/17% since onset of acute illness, estimated PO intake meeting < 50% of estimated nutritional needs >1 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 As ordered, enteral nutrition support will meet 70% daily estimated calories, 100% daily estimated protein needs. 1 packet Shravan BID mixed w/ 8 oz water via OGT. Lab / Micro Data Result Diagrams: 08/22/21 03:45 08/22/21 03:45 Labs: Laboratory Results - last 24 hr 08/22/21 03:45: WBC 9.0, RBC 3.67 L, Hgb 10.4 L, Hct 33.7 L, MCV 91.8, MCH 28.3, MCHC 30.9 L, RDW Std Deviation 48.0 H, RDW Coeff of Williams 14.6, Plt Count 352, MPV 9.9, Immature Gran % (Auto) 2.300 H, Neut % (Auto) 82.0 H, Lymph % (Auto) 8.0 L, [place] % (Auto) 5.8, Eos % (Auto) 1.6, Baso % (Auto) 0.3, Absolute Neuts (auto) 7.4, Absolute Lymphs (auto) 0.72 L, Nucleated RBC % 0 08/22/21 03:45: Sodium 148 H, Potassium 3.5, Chloride 108 H, Carbon Dioxide 36.0 H, Anion Gap 4 L, BUN 36 H, Creatinine 0.38 L, Estim Creat Clear Calc 68.40, Est GFR (MDRD) Af Amer 290, Est GFR (MDRD) Non-Af 240, BUN/Creatinine Ratio 94.2 H, Glucose 132 H, Calcium 8.6, Total Bilirubin 0.40, AST 60 H, ALT 138 H, Alkaline Phosphatase 70, Total Protein 6.0 L, Albumin 1.4 L, Globulin 4.6 H, Albumin/Globulin Ratio 0.3 L Micro: Microbiology 08/15/21 10:30 Interface Orders Gram Stain - Final 08/15/21 10:30 Interface Orders Respiratory Culture - Final Stenotrophomonas maltophilia 08/10/21 15:30 Sputum, Induced/Lukens Gram Stain - Final 08/10/21 15:30 Sputum, Induced/Lukens Respiratory Culture - Final Klebsiella pneumoniae sp pneum 08/03/21 18:00 Blood Culture (Wb) - Anticubital Left Blood Culture - Final No growth in 5 days. 08/03/21 20:20 Blood Culture (Wb) - Right Hand Blood Culture - Final No growth in 5 days. 08/03/21 01:00 Sputum, Expectorated/Coughed Gram Stain - Final 08/03/21 01:00 Sputum, Expectorated/Coughed Respiratory Culture - Final Mixed normal respiratory christina. No Streptococcus pneumoniae, beta-hemolytic Streptococcus or Staphylococcus aureus isolated. 08/03/21 13:33 Urine, Clean Catch Legionella Antigen - Final 08/03/21 13:33 Urine, Clean Catch Streptococcus pneumoniae Antigen (M - Final Radiography Diagnostic Testing: Radiology Impression Chest X-Ray 08/21/21 06:30 IMPRESSION: The support tubes are in good position. Stable bilateral pulmonary infiltrates worse in the left lower lobe. Electronically Signed: Mark Chung MD at 9:08 EST , Service support , ADDENDUM: 08/21/21 1347 IMPRESSION: The support tubes are in good position. Stable bilateral pulmonary infiltrates worse in the left lower lobe. Electronically Signed: Mark Chung MD at 9:08 EST , Service support , Physical Exam Const alert and no apparent distress Resp normal respiratory effort, no retractions, no use of accessory muscles and clear to auscultation bilaterally Cardio regular rate, regular rhythm, S1 normal heart sound and S2 normal heart sound GI normal to inspection, nondistended, normoactive bowel sounds, soft to palpation, non-tender and non-distended Extremity normal to inspection Assessment & Plan Assessment/Plan (1) Acute respiratory failure with hypoxia: (2) Pneumonia due to COVID-19 virus: PLAN: 1. acute hypoxic respiratory failure 2/2 COVID 19 pneumonia and klebsiella pneumonia and stentrophomonas pneumonia wean oxygen as able intubated on 08/10 received furosemide today 2. COVID 19 pneumonia Unvaccinated completed remdesivir, dexamethasone. received 7 days of baricitinib Quarantine completed 3. Klebsiella and stenotrophomonas pneumonia on meropenem and levofloxacin 4. VTE prophylaxis: LMWH Charges/Coding Visit Charges Inpatient E&M: 07103 Subs Hosp L2
--- NOTE | 2021-08-22 12:49 | EX.PCM.CON.S ---
Assessment & Plan Assessment/Plan (1) Acute respiratory failure with hypoxia: PLAN: Patient now vent day 12 for Covid pneumonia. ICU team seeking tracheostomy and PEG tube placement. After conversation with patient's spouse, she is interested in taking this next step with her 's care as she hopes it will help him transition to rehab. Therefore, I would asked the ICU team to hold tube feeds at midnight. He is tentatively on the schedule for 1420 08/23/2021. Would like to consider a bedside procedure, but will discuss further with the ICU team. HPI Consult Data Date of Consult: 08/22/21 HPI Narrative HPI Narrative: RABIA ALCANTARA, is a 66 M who presented to [facility] as a transfer from an outside hospital for management of a Covid pneumonia. He was initially managed with noninvasive ventilation, but required intubation on 08/10/2021. He has required fluctuating amounts of ventilatory support. Given this duration with an endotracheal tube, the ICU team is seeking tracheostomy evaluation with ENT and surgery was thus consulted for consideration of a PEG tube placement. Patient appears to be interactive in the room and is able to answer questions related to a physical exam with nodding of his head. He is on tube feeds via an orogastric tube at this point. And a phone call to the patient's , Clemencia Alcantara, she states that her had a very active premorbid state. 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 She states that she is not ready to give up on him and does not believe that he is ready to give up either. She confirms a surgical history of one umbilical hernia repair and multiple inguinal hernia repairs for her . [facility] Medical History Asthma Hypertension Narcolepsy Stroke/cerebrovascular accident Home Medications doxycycline monohydrate 08/03/21 [History Last Taken Unknown] metoprolol tartrate 25 mg PO BID 08/03/21 [History Last Taken Unknown] olmesartan-hydrochlorothiazide 1 tab PO DAILY 08/03/21 [History Last Taken Unknown] aspirin 325 mg PO DAILY 08/04/21 [History Last Taken Unknown] diphenhydramine HCl [Benadryl] 50 mg PO QHS 08/04/21 [History Last Taken Unknown] Allergy/AdvReac Type Severity Reaction Status Date / Time cephalexin [From Keflex] Allergy Rash Verified 08/03/21 00:22 theophylline Allergy Rash Verified 08/03/21 00:22 Social History Smoking Status: Unknown if ever smoked Physical Exam Const General Appearance: cooperative, intubated and patient mechanically ventilated Exam Limitations: other limitations GI GI Narrative: Overweight, there is a small midline scar in the supraumbilical position consistent with prior umbilical hernia repair. I do not feel a fascial defect with this. Soft, nontender (according to patient's head shaking) with palpation. Medical Records Data Medical Nutrition Assessment Dietitian: Malnutrition Criteria Met Start: 08/03/21 13:46 Freq: Status: Active Protocol: Document 08/20/21 11:10 (Rec: 08/20/21 11:10 [id number]) Nutrition Malnutrition Evidence of Malnutrition Exists Yes Malnutrition (severe): Acute Illness/Injury Evidenced By Suboptimal Energy Intake ( Severe),Weight Loss (Severe) Clinical Problem Acute Disease or Injury Related Malnutrition Etiology severe, acute malnutrition r/t inadequate energy intake d/t COVID-19 illness Signs/Symptoms as evidenced by unintentional wt loss of 16.18kg/17% since onset of acute illness, estimated PO intake meeting < 50% of estimated nutritional needs >1 week [employer] Status Active Problem Recommendation Dietitian Recommendations/Changes NPO while intubated; Continue via OGT- Vital HP at goal rate 55mL/hour w/ 100mL H2O flush every 4 hours to provide 1320 calories, 115 g protein, and 1703mL fluid/day. As ordered, enteral nutrition support will meet 70% daily estimated calories, 100% daily estimated protein needs. 1 packet Shravan BID mixed w/ 8 oz water via OGT. Lab / Micro Data Result Diagrams: 08/22/21 03:45 08/22/21 03:45 Labs: Laboratory Results - last 24 hr 08/22/21 03:45: WBC 9.0, RBC 3.67 L, Hgb 10.4 L, Hct 33.7 L, MCV 91.8, MCH 28.3, MCHC 30.9 L, RDW Std Deviation 48.0 H, RDW Coeff of Williams 14.6, Plt Count 352, MPV 9.9, Immature Gran % (Auto) 2.300 H, Neut % (Auto) 82.0 H, Lymph % (Auto) 8.0 L, [place] % (Auto) 5.8, Eos % (Auto) 1.6, Baso % (Auto) 0.3, Absolute Neuts (auto) 7.4, Absolute Lymphs (auto) 0.72 L, Nucleated RBC % 0 08/22/21 03:45: Sodium 148 H, Potassium 3.5, Chloride 108 H, Carbon Dioxide 36.0 H, Anion Gap 4 L, BUN 36 H, Creatinine 0.38 L, Estim Creat Clear Calc 68.40, Est GFR (MDRD) Af Amer 290, Est GFR (MDRD) Non-Af 240, BUN/Creatinine Ratio 94.2 H, Glucose 132 H, Calcium 8.6, Total Bilirubin 0.40, AST 60 H, ALT 138 H, Alkaline Phosphatase 70, Total Protein 6.0 L, Albumin 1.4 L, Globulin 4.6 H, Albumin/Globulin Ratio 0.3 L Radiology Impression Chest X-Ray 08/21/21 06:30 IMPRESSION: The support tubes are in good position. Stable bilateral pulmonary infiltrates worse in the left lower lobe. Electronically Signed: Mark Chung MD at 9:08 EST , Service support , ADDENDUM: 08/21/21 1347 IMPRESSION: The support tubes are in good position. Stable bilateral pulmonary infiltrates worse in the left lower lobe. Electronically Signed: Mark Chung MD at 9:08 EST , Service support , Charges/Coding Visit Charges Inpatient E&M: 48559 Init Hosp L2
--- NOTE | 2021-08-22 13:23 | CASEMGMT ---
RN CM updated by vice president for philanthropy that family is proceeding with trach and peg when appropriate. RN CM called and spoke to Erin regarding LTACH at discharge. RN CM review list with over phone and copy left in room for . RN CM requested that review list and provide preferences. voiced understanding. CM will continue to follow this patient and plan for a safe discharge.
--- NOTE | 2021-08-22 14:08 | WOUNDNOTE ---
In to reassess the sacral pressure injury. there is still some mild bleeding noted to bilateral buttocks with deep tissue injury noted centrally. appears stable. there is no malodor noted. patient did have a BM so pericare was provided. new Mepilex applied. did apply a thin layer of triad cream to bilateral buttocks. pt remains intubated. patient is being turned frequently. will continue to monitor.
[2021-08-23] VITALS (35 sets, daily range): BP systolic 101–136; BP diastolic 55–72; PULSE 95–110; RESP 16–21; TEMP 37.1–37.7; O2SAT 55–96
[2021-08-23] MEDS: Propofol 10MG/Ml 1,000 MG/100 ML Bottle 9.5 MG CONT INF ×3 (02:00→15:41)
[2021-08-23] MEDS: Glycerin/Hypromellose/PEG400 15 ml Bottle 1 DRP EACH EYE ×6 (02:11→21:25)
[2021-08-23 03:36] LABS: Absolute Lymphocyte Count 0.96 X10^3/uL (0.83-4.51); Basophil# 0.03 X10^3/uL; Basophil% 0.3 % (0-1); Eosinophil# 0.22 X10^3/uL; Hematocrit 33.2 % (40-54); Hemoglobin 10.5 g/dL (13.0-16.5); Lymphocyte # 0.96 X10^3/ul (0.83-4.51); Lymphocyte % 8.6 % (19-41); Mean Corp Hgb Conc 31.6 g/dL (32-36); Mean Corpuscular Hgb 28.5 pg (27.0-32.0); Mean Platelet Vol. 10.4 fl (6.2-12.0); Monocyte# 0.62 X10^3/uL; Monocyte% 5.5 % (0-10); NRBC Flagged by Analyzer 0 % (0-5); Neutrophil # 9.02 X10^3/uL (2.7-7.7); Neutrophil % 80.5 % (47-70); Platelet Count 358 K/mm3 (150-450); RBC Distribution Width CV 14.8 % (11.6-14.6); RBC Distribution Width SD 46.8 fl (35.1-43.9); Red Blood Count 3.69 M/mm3 (4.6-6.2); White Blood Count 11.2 K/mm3 (4.4-11.0)
[2021-08-23 03:51] LABS: ALB/GLOB Ratio 0.3 RATIO (0.9-2.4); AST(SGOT) 50 U/L (15-37); Alanine Aminotransfer ALT/SGPT 115 U/L (16-61); Albumin, Serum 1.4 g/dL (3.2-5.0); Alkaline Phosphatase 69 U/L (45-117); Anion Gap 5 (5-15); BUN 35 mg/dL (7-18); BUN/Creat Ratio 102.3 RATIO (10-20); Calcium,Total 8.7 mg/dL (8.5-10.1); Chloride 107 mmol/L (98-107); Creatinine, Serum 0.34 mg/dL (0.70-1.30); EST Glomerular Filtration Rate 272 mL/min (>60); Est Glom Filt Rate - Afr Amer 329 mL/min (>60); Globulin 4.8 g/dL (2.2-4.2); Glucose 114 mg/dL (74-106); Potassium 3.6 mmol/L (3.5-5.1); Protein, Total 6.2 g/dL (6.4-8.2); Sodium Level 147 mmol/L (136-145)
[2021-08-23 03:55] LABS: CPK Total, Creatine Kinase 29 U/L (39-308); Triglycerides 149 mg/dL
[2021-08-23] MEDS: CHLORHEXIDINE GLUC 2% CLOTH 1 EACH TOWELETTE TOPICAL (05:29)
[2021-08-23] MEDS: Menthol/Lanolin/Calamine/Znox 113 GM Tube 1 APPLIC TOPICAL ×3 (05:31→21:19)
[2021-08-23] MEDS: guaiFENesin 10 ML UDC (200MG/10ML) 20 ML GT ×2 (05:32)
[2021-08-23] MEDS: Ipratropium/Albuterol Sulfate 3 ML AMPUL.NEB INHALATION ×3 (06:38→19:48)
--- NOTE | 2021-08-23 07:15 | PCM.PN.INT ---
Assessment & Plan Assessment/Plan (1) Acute respiratory failure with hypoxia: (2) Pneumonia due to COVID-19 virus: PLAN: RECOMMENDATIONS: 1. Continue to wean FiO2 to maintain oxygen saturations at or above 90%. 2. Continue current antimicrobial regimen. 3. Continue prophylactic Lovenox. 4. Continue appropriate GI prophylaxis. PEG today. 5. Challenge with diuretics aggressively given increased infiltrates on chest x-ray 6. Tube feeds as tolerated. Continue increased free water flushes 7. Arrange for tracheostomy and PEG IMPRESSIONS: 1. Acute hypoxemic respiratory failure secondary to COVID-19 pneumonia The patient initially presented to the hospital with worsening shortness of breath and hypoxemia. The patient has completed treatment courses of remdesivir, decadron and partial course of baricitinib. Ultimately, the patient continued to decompensate from a respiratory perspective and had to be intubated on August 10. Sputum culture was positive for Klebsiella and stenotrophomonas, which is currently being addressed with antimicrobial therapy. In the interim, we will continue to wean FiO2 and PEEP as tolerated for saturations greater than 90%. Diuretics will be utilized as needed to maintain euvolemic state, as tolerated by hemodynamics and renal function. We will continue to dose with Lasix today if blood pressure allows. Continue tube feeds as tolerated, but increase free water flushes given hypernatremia. Continue appropriate GI and DVT prophylaxis. Clinical suspicion for an element of thick secretions secondary to previously cultured stenotrophomonas as this tends to be difficult to eradicate. Await ENT response for tracheostomy. 2. Obesity/hypertension/self-reported asthma/prior CVA Complicates care, management, recovery and prognosis. Continue home medications as indicated. Continue nutritional support via tube feeds and physical therapy as tolerated. Tube feeds on hold secondary to PEG today. TIME: 32 minutes of critical care time, independent of procedures, was spent addressing the patient's acute hypoxemic respiratory failure secondary to COVID-19 pneumonia, review of all data and collaboration with care team. Subjective Subjective Patient did okay overnight. Patient has been able to be weaned to 65%. Patient did have a mild fever overnight. Patient continues to open his eyes and denies any pain. Patient is very weak. Patient was tolerating tube feeds until they were held at midnight for a PEG at 230 today. Objective Data Objective Data Vital Signs: Vital Signs Temp Pulse Resp BP Pulse Ox 37.6 C H 107 H 20 H 112/55 L 92 08/23/21 06:00 08/23/21 06:40 08/23/21 06:40 08/23/21 06:00 08/23/21 06:40 Oxygen Flow Rate (L/min) 60 Oxygen Delivery Method Mechanical Ventilator Weight: 78.6 kg Body Mass Index (BMI) 30.4 Intake & Output: Intake and Output for Last 24 Hours 08/21/21 08/22/21 08/23/21 23:59 23:59 23:59 Intake Total 3673.95 / 4095.95 4523.55 / 5091.55 1176.75 / 1176.75 Output Total 2900 / 3150 2200 / 2900 1000 / 1000 Balance 773.95 / 945.95 2323.55 / 2191.55 176.75 / 176.75 Medical Nutrition Assessment Dietitian: Malnutrition Criteria Met Start: 08/03/21 13:46 Freq: Status: Active Protocol: Document 08/20/21 11:10 AG (Rec: 08/20/21 11:10 [id number]) Nutrition Malnutrition Evidence of Malnutrition Exists Yes Malnutrition (severe): Acute Illness/Injury Evidenced By Suboptimal Energy Intake ( Severe),Weight Loss (Severe) Clinical Problem Acute Disease or Injury Related Malnutrition Etiology severe, acute malnutrition r/t inadequate energy intake d/t COVID-19 illness Signs/Symptoms as evidenced by unintentional wt loss of 16.18kg/17% since onset of acute illness, estimated PO intake meeting < 50% of estimated nutritional needs >1 week 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 As ordered, enteral nutrition support will meet 70% daily estimated calories, 100% daily estimated protein needs. 1 packet Shravan BID mixed w/ 8 oz water via OGT. Lab / Micro Data Result Diagrams: 08/23/21 03:15 08/23/21 03:15 Labs: Laboratory Results - last 24 hr 08/23/21 03:15: WBC 11.2 H, RBC 3.69 L, Hgb 10.5 L, Hct 33.2 L, MCV 90.0, MCH 28.5, MCHC 31.6 L, RDW Std Deviation 46.8 H, RDW Coeff of Williams 14.8 H, Plt Count 358, MPV 10.4, Immature Gran % (Auto) 3.100 H, Neut % (Auto) 80.5 H, Lymph % (Auto) 8.6 L, [place] % (Auto) 5.5, Eos % (Auto) 2.0, Baso % (Auto) 0.3, Absolute Neuts (auto) 9.0 H, Absolute Lymphs (auto) 0.96, Nucleated RBC % 0 08/23/21 03:15: Sodium 147 H, Potassium 3.6, Chloride 107, Carbon Dioxide 35.0 H, Anion Gap 5, BUN 35 H, Creatinine 0.34 L, Estim Creat Clear Calc 68.40, Est GFR (MDRD) Af Amer 329, Est GFR (MDRD) Non-Af 272, BUN/Creatinine Ratio 102.3 H, Glucose 114 H, Calcium 8.7, Total Bilirubin 0.50, AST 50 H, ALT 115 H, Alkaline Phosphatase 69, Total Protein 6.2 L, Albumin 1.4 L, Globulin 4.8 H, Albumin/Globulin Ratio 0.3 L 08/23/21 03:15: Total Creatine Kinase 29 L, Triglycerides 149 Micro: Microbiology 08/15/21 10:30 Interface Orders Gram Stain - Final 08/15/21 10:30 Interface Orders Respiratory Culture - Final Stenotrophomonas maltophilia 08/10/21 15:30 Sputum, Induced/Lukens Gram Stain - Final 08/10/21 15:30 Sputum, Induced/Lukens Respiratory Culture - Final Klebsiella pneumoniae sp pneum 08/03/21 18:00 Blood Culture (Wb) - Anticubital Left Blood Culture - Final No growth in 5 days. 08/03/21 20:20 Blood Culture (Wb) - Right Hand Blood Culture - Final No growth in 5 days. 08/03/21 01:00 Sputum, Expectorated/Coughed Gram Stain - Final 08/03/21 01:00 Sputum, Expectorated/Coughed Respiratory Culture - Final Mixed normal respiratory christina. No Streptococcus pneumoniae, beta-hemolytic Streptococcus or Staphylococcus aureus isolated. 08/03/21 13:33 Urine, Clean Catch Legionella Antigen - Final 08/03/21 13:33 Urine, Clean Catch Streptococcus pneumoniae Antigen (M - Final Physical Exam Const alert and no apparent distress General Appearance: intubated and patient mechanically ventilated HEENT normocephalic and head/scalp atraumatic Mouth: endotracheal tube in place and OG tube in place Eyes PERRL and EOMs intact bilaterally Neck supple General: trachea midline Chest inspection of chest normal Chest: symmetrical chest wall rise; Negative for crepitus Resp Auscultation: rhonchi throughout and diminished lung sounds; Negative for rales or wheezes Cardio regular rate and regular rhythm GI normal to inspection, nondistended, normoactive bowel sounds Extremity no clubbing, cyanosis or edema Skin no rashes or lesions noted Neuro no focal motor deficits Sensorium / Orientation: sedated on vent Charges/Coding Procedures Hospitalists Procedures: 16368 Critial Care 1st Hr
[2021-08-23] MEDS: Potassium Chloride Oral Soln 20 MEQ/15 ML UDC 40 MEQ PO (08:16)
[2021-08-23] MEDS: Furosemide 40 MG/4 ML Vial IV (08:17)
--- NOTE | 2021-08-23 11:39 | PCM.OP.PRO ---
Assessment & Plan Assessment/Plan (1) Severe malnutrition: (2) Acute respiratory failure with hypoxia: Procedure Report Date of Procedure: 08/23/21 CONSCIOUS SEDATION REPORT BRIEF HISTORY OF PRESENT ILLNESS: The patient is a 66-year-old male who presented to [facility] on 08/02/2021 secondary to COVID-19. Patient has been intubated for 14 days and requires a PEG. The patient reports no PO intake since midnight, but is currently on prophylactic dosed anticoagulation. The patient is currently on the ventilator and stable. The patient denies previous applicable anesthetic complications. Patient's vitals were transition to every 5 minutes for the entirety of the procedure. PHYSICAL EXAMINATION: VITAL SIGNS: Reviewed and were acceptable. GENERAL: The patient is a male, in no apparent distress, speaking in full sentences. HEENT: Normocephalic, atraumatic. Mucous membranes are moist and pink. Good mouth opening noted. Trachea is midline. Good neck mobility. MP II CHEST: S1, S2 irregularly irregular. No murmurs, rubs or gallops were noted. LUNGS: Diminished bilaterally without appreciable wheezes, rales or rhonchi. ABDOMEN: Soft, nontender, nondistended. Positive bowel sounds. EXTREMITIES: There is no clubbing, cyanosis or edema. ASA Class: III DESCRIPTION OF PROCEDURE: After confirmation of informed consent, the patient's anesthesia plan was reviewed in detail. Patient was prophylactically increased to 100% FiO2 on the vent from 65% and increased on his propofol drips by 10 mics and fentanyl by 25 mics approximately 30 minutes prior to the procedure. Additional propofol was available if necessary. Dr. Mendez initiated the procedure at 11 AM and the patient was personally monitored by myself until 11:35 AM. The patient had no significant bradycardia or hypotension during the procedure. The patient did not require additional propofol. Patient did have some suctioning that was obtained. Patient did have a hiatal hernia noted on EGD, but no complications were reported. After the procedure was completed, patient was transitioned back to 65% FiO2. COMPLICATIONS: None ESTIMATED BLOOD LOSS: None RECOMMENDATIONS: Patient transition back to baseline settings. Vitals are moved back to standard from every 5 minutes. Procedures Pulmonary 9xxxx: [id number] Con Sedation (35 minutes of total conscious sedation)
[2021-08-23] MEDS: Chlorhexidine 15 ML PO ×2 (11:48→21:19)
[2021-08-23] MEDS: levoFLOXacin IV 750 MG/150 ML BAG 100 MG IV (11:48)
--- NOTE | 2021-08-23 12:59 | PCM.PN.HOSP ---
Subjective Subjective PEG placed this AM. Objective Data Objective Data Vital Signs: Vital Signs Temp Pulse Resp BP Pulse Ox 37.4 C H 108 H 16 104/66 65 08/23/21 12:00 08/23/21 12:00 08/23/21 12:00 08/23/21 12:00 08/23/21 12:00 Oxygen Flow Rate (L/min) 60 Oxygen Delivery Method Mechanical Ventilator Weight: 78.6 kg Body Mass Index (BMI) 30.4 Intake & Output: Intake and Output for Last 24 Hours 08/21/21 08/22/21 08/23/21 23:59 23:59 23:59 Intake Total 3673.95 / 4095.95 4523.55 / 5091.55 1570.13 / 1570.13 Output Total 2900 / 3150 2200 / 2900 1900 / 1900 Balance 773.95 / 945.95 2323.55 / 2191.55 -329.87 / -329.87 Medical Nutrition Assessment Dietitian: Malnutrition Criteria Met Start: 08/03/21 13:46 Freq: Status: Active Protocol: Document 08/20/21 11:10 AG (Rec: 08/20/21 11:10 [id number]) Nutrition Malnutrition Evidence of Malnutrition Exists Yes Malnutrition (severe): Acute Illness/Injury Evidenced By Suboptimal Energy Intake ( Severe),Weight Loss (Severe) Clinical Problem Acute Disease or Injury Related Malnutrition Etiology severe, acute malnutrition r/t inadequate energy intake d/t COVID-19 illness Signs/Symptoms as evidenced by unintentional wt loss of 16.18kg/17% since onset of acute illness, estimated PO intake meeting < 50% of estimated nutritional needs >1 week 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 As ordered, enteral nutrition support will meet 70% daily estimated calories, 100% daily estimated protein needs. 1 packet Shravan BID mixed w/ 8 oz water via OGT. Lab / Micro Data Result Diagrams: 08/23/21 03:15 08/23/21 03:15 Labs: Laboratory Results - last 24 hr 08/23/21 03:15: WBC 11.2 H, RBC 3.69 L, Hgb 10.5 L, Hct 33.2 L, MCV 90.0, MCH 28.5, MCHC 31.6 L, RDW Std Deviation 46.8 H, RDW Coeff of Williams 14.8 H, Plt Count 358, MPV 10.4, Immature Gran % (Auto) 3.100 H, Neut % (Auto) 80.5 H, Lymph % (Auto) 8.6 L, [place] % (Auto) 5.5, Eos % (Auto) 2.0, Baso % (Auto) 0.3, Absolute Neuts (auto) 9.0 H, Absolute Lymphs (auto) 0.96, Nucleated RBC % 0 08/23/21 03:15: Sodium 147 H, Potassium 3.6, Chloride 107, Carbon Dioxide 35.0 H, Anion Gap 5, BUN 35 H, Creatinine 0.34 L, Estim Creat Clear Calc 68.40, Est GFR (MDRD) Af Amer 329, Est GFR (MDRD) Non-Af 272, BUN/Creatinine Ratio 102.3 H, Glucose 114 H, Calcium 8.7, Total Bilirubin 0.50, AST 50 H, ALT 115 H, Alkaline Phosphatase 69, Total Protein 6.2 L, Albumin 1.4 L, Globulin 4.8 H, Albumin/Globulin Ratio 0.3 L 08/23/21 03:15: Total Creatine Kinase 29 L, Triglycerides 149 Micro: Microbiology 08/15/21 10:30 Interface Orders Gram Stain - Final 08/15/21 10:30 Interface Orders Respiratory Culture - Final Stenotrophomonas maltophilia 08/10/21 15:30 Sputum, Induced/Lukens Gram Stain - Final 08/10/21 15:30 Sputum, Induced/Lukens Respiratory Culture - Final Klebsiella pneumoniae sp pneum 08/03/21 18:00 Blood Culture (Wb) - Anticubital Left Blood Culture - Final No growth in 5 days. 08/03/21 20:20 Blood Culture (Wb) - Right Hand Blood Culture - Final No growth in 5 days. 08/03/21 01:00 Sputum, Expectorated/Coughed Gram Stain - Final 08/03/21 01:00 Sputum, Expectorated/Coughed Respiratory Culture - Final Mixed normal respiratory christina. No Streptococcus pneumoniae, beta-hemolytic Streptococcus or Staphylococcus aureus isolated. 08/03/21 13:33 Urine, Clean Catch Legionella Antigen - Final 08/03/21 13:33 Urine, Clean Catch Streptococcus pneumoniae Antigen (M - Final Physical Exam Const Constitutional Narrative: intubated. sedated. PEG in place with dressing. Assessment & Plan Assessment/Plan (1) Acute respiratory failure with hypoxia: (2) Pneumonia due to COVID-19 virus: PLAN: 1. acute hypoxic respiratory failure 2/2 COVID 19 pneumonia and klebsiella pneumonia and stentrophomonas pneumonia wean oxygen as able intubated on 08/10 received furosemide today PEG placed. Eventual tracheostomy 2. COVID 19 pneumonia Unvaccinated completed remdesivir, dexamethasone. received 7 days of baricitinib Quarantine completed 3. Klebsiella and stenotrophomonas pneumonia on meropenem and levofloxacin 4. VTE prophylaxis: LMWH Charges/Coding Visit Charges Inpatient E&M: 85345 Subs Hosp L2
--- NOTE | 2021-08-23 14:05 | OP.PCM_ITS ---
Report of Operation Date of Procedure: 08/23/21 Pre-Operative Diagnosis: 1. Acute respiratory failure with chronic ventilator dependence 2. Need for durable enteral access Post-Operative Diagnosis: Same Surgery/Procedure Performed:: Percutaneous endoscopic gastrostomy tube placement Description of Surgical Findings:: ?Dense secretions in the posterior oropharynx ?Normal duodenal, gastric, esophageal anatomy with evidence of mild gastritis and moderate size hiatal hernia Surgeon: Niels Mendez Type of Anesthesia: Supplemental Specimen's removed: None Estimated Blood Loss (mL): 2 Description of Procedure: Given the patient's acuity, I elected to do this procedure in the intensive care unit in the patient's room. Dr. Kebede, electrical appliance preparer, provided sedation for the case. Procedure was begun after obtaining written consents from the patient's spouse and performing a formal timeout to confirm the patient and the procedure. A standard gastroscope was introduced through the mouth. The esophagus stomach and duodenum were briefly examined and photos were taken (available in probation). There was some mild gastritis and a moderate?size hiatal hernia (Hill 2/3) noted with this exam. The anterior gastric wall was examined with the endoscope and there was immediate transillumination to the anterior abdominal wall. I then identified a spot in the gastric body that transilluminated to the left upper abdominal quadrant and there was 1-1 palpation with visualization on the gastroscope. This area was marked and then prepped with our kit chlorhexidine swabs. 1% lidocaine was used to anesthetize the skin and during this injection I began back aspirating on the syringe as the needle was advanced into the abdominal wall. We are able to assure that there was air in the syringe at the same time the needle was visualized within the stomach indicating no interposed anatomic structures. With these safety checks, a stab incision was made in the abdominal wall and our finder needle and sheath were placed in this location. The wire was fed through that sheath and a snare was inserted through the gastroscope to snare the wire coming into the stomach. Then the wire was withdrawn back through the mouth and looped onto the patient's new feeding tube. At this point, the patient's orogastric tube was removed to provide room for the remainder of the procedure. The feeding tube, itself, was snared and the whole ensemble was pulled in antegrade fashion back into the stomach. The gastroscope was able to confirm apposition of the bumper to the gastric wall internally. Then the patient's feeding tube was assembled with the outer bumper snugged against the anterior abdominal wall, bilateral by the clip and lastly the gap. The outer bumper resides at approximately 3.5 cm from the skin and this was sutured in place at the abdominal wall with a 2-0 Prolene suture to prevent migration during tract maturation. The insertion site was cleansed and a dressing sponge was fitted around the tube. This concluded the procedure and the patient's supplemental oxygen/sedation was weaned. This tube should be placed to gravity for 24 hours and then can be used for enteral feeds/medications. Complications None Admit VTE Documentation VTE Present on Admission: Yes VTE Mechan Device Prophylaxis: SCD's VTE Pharm Prophylaxis ordered?: Yes Procedures Digestive 40xxx-49xxx: [address] gastrostomy tube
--- NOTE | 2021-08-23 17:53 | CPS ---
pulled back tube to [address] James
--- NOTE | 2021-08-23 18:17 | OP.CCLET_ITS ---
08/23/2021 Wilfrido Prado Md Re : Upper GI endoscopy procedure for Clive Willinghamr Johan This procedure was performed on August. My impressions and recommendations are as follows: Impressions : - Normal first portion of the duodenum and second portion of the duodenum. No specimens collected. - Gastritis. No specimens collected. - Medium-sized hiatal hernia. No specimens collected. - Normal esophagus. No specimens collected. - Intact gastrostomy with a patent G-tube present characterized by an intact appearance. - A PEG placement was successfully completed. Recommendations : - Please follow the post-PEG recommendations including: change dressing once per day and may use PEG tomorrow for feedings. - Continue present medications. My findings are described in the full procedure note, which is enclosed. If I can be of further assistance, please feel free to contact me at Doctor phone number(s): , Work: . Sincerely, Niels Mendez MD 08/23/2021 6:16:58 PM This report has been signed electronically.
--- NOTE | 2021-08-23 18:17 | OP.EGD_ITS ---
Patient Name: Clive Betancourt Procedure Date: 08/23/2021 10:52 AM Date of : 1955 Age: 66 Procedure: Upper GI endoscopy Indications: Place PEG because patient is unable to eat, Place PEG because patient requires ventilator support Providers: Niels Mendez MD Referring MD: Danis Jean Medicines: Administered by broadcast traffic coordinator in ICU Patient Profile: Refer to note in patient chart for documentation of history and physical. Complications: No immediate complications. Estimated blood loss: Minimal. Procedure: Pre-Anesthesia Assessment: - The heart rate, respiratory rate, oxygen saturations, blood pressure, adequacy of pulmonary ventilation, and response to care were monitored throughout the procedure. - Sedative medications were given in increments in order to maintain adequate moderate sedation. After obtaining informed consent, the endoscope was passed under direct vision. Throughout the procedure, the patient's blood pressure, pulse, and oxygen saturations were monitored continuously. The gastroscope was introduced through the mouth, and advanced to the second part of duodenum. The upper GI endoscopy was accomplished without difficulty. The patient tolerated the procedure well. Scope In: 11:02:36 AM Scope Out: 11:33:01 AM Total Procedure Duration Time 0 hours 30 minutes 25 seconds Findings: The first portion of the duodenum and second portion of the duodenum were normal. No biopsies or other specimens were collected for this exam. Scattered mild inflammation characterized by erythema was found in the gastric body and in the gastric antrum. No biopsies or other specimens were collected for this exam. A medium-sized hiatal hernia was present. No biopsies or other specimens were collected for this exam. The examined esophagus was normal. No biopsies or other specimens were collected for this exam. There was evidence of an intact gastrostomy with a patent G-tube present on the anterior wall of the gastric body. This was characterized by an intact appearance. The patient was placed in the supine position for PEG placement. The stomach was insufflated to appose gastric and abdominal harris. A site was located in the body of the stomach with excellent transillumination for placement. The abdominal wall was marked and prepped in a sterile manner. The area was anesthetized with 4 mL of 0.5% lidocaine. The trocar needle was introduced through the abdominal wall and into the stomach under direct endoscopic view. A snare was introduced through the endoscope and opened in the gastric lumen. The guide wire was passed through the trocar and into the open snare. The snare was closed around the guide wire. The endoscope and snare were removed, pulling the wire out through the mouth. A skin incision was made at the site of needle insertion. The gastrostomy tube was lubricated. The G-tube was tied to the guide wire and pulled through the mouth and into the stomach. The trocar needle was removed, and the gastrostomy tube was pulled out from the stomach through the skin. The external bumper was attached to the gastrostomy tube, and the tube was cut to remove the guide wire. The final position of the gastrostomy tube was confirmed by relook endoscopy, and skin marking noted to be 3.5 cm at the external bumper. The final tension and compression of the abdominal wall by the PEG tube and external bumper were checked and revealed that the bumper was loose and lightly touching the skin. The feeding tube was capped, and the tube site cleaned and dressed. Impression: - Normal first portion of the duodenum and second portion of the duodenum. No specimens collected. - Gastritis. No specimens collected. - Medium-sized hiatal hernia. No specimens collected. - Normal esophagus. No specimens collected. - Intact gastrostomy with a patent G-tube present characterized by an intact appearance. - A PEG placement was successfully completed. Recommendation: - Please follow the post-PEG recommendations including: change dressing once per day and may use PEG tomorrow for feedings. - Continue present medications. Procedure Code(s): --- Professional --- 24215, Esophagogastroduodenoscopy, flexible, transoral; with directed placement of percutaneous gastrostomy tube Diagnosis Code(s): --- Professional --- K29.70, Gastritis, unspecified, without bleeding K44.9, Diaphragmatic hernia without obstruction or gangrene Z93.1, Gastrostomy status R63.3, Feeding difficulties Z43.1, Encounter for attention to gastrostomy Z99.11, Dependence on respirator [ventilator] status CPT copyright 2017 [employer] [place] [employer]. All rights reserved. The codes documented in this report are preliminary and upon construction project manager review may be revised to meet current compliance requirements. Niels Mendez MD 08/23/2021 6:16:58 PM This report has been signed electronically. Number of Addenda: 0 Note Initiated On: 08/23/2021 10:52 AM
[2021-08-23] MEDS: Enoxaparin 30 MG/0.3 ML Syringe SC (21:20)
[2021-08-24] VITALS (36 sets, daily range): BP systolic 102–142; BP diastolic 53–74; PULSE 88–118; RESP 16–23; TEMP 36.9–37.5; O2SAT 88–95
[2021-08-24] MEDS: Glycerin/Hypromellose/PEG400 15 ml Bottle 1 DRP EACH EYE ×6 (02:00→21:33)
[2021-08-24] MEDS: Propofol 10MG/Ml 1,000 MG/100 ML Bottle 9.5 MG CONT INF ×3 (02:00→20:00)
[2021-08-24 05:30] LABS: Absolute Lymphocyte Count 0.72 X10^3/uL (0.83-4.51); Basophil# 0.05 X10^3/uL; Basophil% 0.5 % (0-1); Eosinophil# 0.14 X10^3/uL; Eosinophils% 1.3 % (0-5); Hemoglobin 10.3 g/dL (13.0-16.5); Lymphocyte # 0.72 X10^3/ul (0.83-4.51); Lymphocyte % 6.6 % (19-41); Mean Corp Hgb Conc 30.3 g/dL (32-36); Mean Corpuscular Hgb 27.7 pg (27.0-32.0); Mean Corpuscular Volume 91.4 fL (80-94); Mean Platelet Vol. 11.3 fl (6.2-12.0); Monocyte# 0.61 X10^3/uL; Monocyte% 5.6 % (0-10); NRBC Flagged by Analyzer 0 % (0-5); Platelet Count 321 K/mm3 (150-450); RBC Distribution Width CV 14.8 % (11.6-14.6); RBC Distribution Width SD 48.7 fl (35.1-43.9); Red Blood Count 3.72 M/mm3 (4.6-6.2); White Blood Count 10.8 K/mm3 (4.4-11.0)
[2021-08-24 05:39] LABS: Anion Gap 6 (5-15); BUN 31 mg/dL (7-18); Calcium,Total 8.6 mg/dL (8.5-10.1); Chloride 109 mmol/L (98-107); Creatinine, Serum 0.25 mg/dL (0.70-1.30); EST Glomerular Filtration Rate 384 mL/min (>60); Est Glom Filt Rate - Afr Amer 464 mL/min (>60); Glucose 108 mg/dL (74-106); Potassium 3.6 mmol/L (3.5-5.1); Sodium Level 149 mmol/L (136-145)
[2021-08-24] MEDS: guaiFENesin 10 ML UDC (200MG/10ML) 20 ML GT ×3 (06:37→17:01)
[2021-08-24] MEDS: Menthol/Lanolin/Calamine/Znox 113 GM Tube 1 APPLIC TOPICAL ×3 (06:37→21:29)
--- NOTE | 2021-08-24 07:09 | PCM.PN.INT ---
Assessment & Plan Assessment/Plan (1) Acute respiratory failure with hypoxia: (2) Pneumonia due to COVID-19 virus: PLAN: RECOMMENDATIONS: 1. Continue to wean FiO2 to maintain oxygen saturations at or above 90%. 2. Continue current antimicrobial regimen. 3. Continue prophylactic Lovenox. 4. Continue appropriate GI prophylaxis. PEG completed. 5. Challenge with diuretics aggressively given increased infiltrates on chest x-ray 6. Potentially start tube feeds later today 7. Attempt to make arrangements for tracheostomy early next week IMPRESSIONS: 1. Acute hypoxemic respiratory failure secondary to COVID-19 pneumonia The patient initially presented to the hospital with worsening shortness of breath and hypoxemia. The patient has completed treatment courses of remdesivir, decadron and partial course of baricitinib. Ultimately, the patient continued to decompensate from a respiratory perspective and had to be intubated on August 10. Sputum culture was positive for Klebsiella and stenotrophomonas, which is currently being addressed with antimicrobial therapy. In the interim, we will continue to wean FiO2 and PEEP as tolerated for saturations greater than 90%. Diuretics will be utilized as needed to maintain euvolemic state, as tolerated by hemodynamics and renal function. We will hold on diuresis for today. Initiate tube feeds if okay with surgery. We will need to evaluate other options for tracheostomy 2. Obesity/hypertension/self-reported asthma/prior CVA Complicates care, management, recovery and prognosis. Continue home medications as indicated. Continue nutritional support via tube feeds and physical therapy as tolerated. Potentially start tube feeds later today.. TIME: 33 minutes of critical care time, independent of procedures, was spent addressing the patient's acute hypoxemic respiratory failure secondary to COVID-19 pneumonia, review of all data and collaboration with care team. Subjective Subjective Patient did okay overnight. Patient did have his PEG placed yesterday and it has been to gravity overnight. Patient tolerating this well. Patient remains on 8 of PEEP to maintain saturations. No fevers have been reported. Patient has not had any bowel movements. Dr. Mina (ENT) did not evaluate the patient and is refusing to place tracheostomy at this time. Objective Data Objective Data Vital Signs: Vital Signs Temp Pulse Resp BP Pulse Ox 37.4 C H 110 H 20 H 115/59 L 91 08/24/21 06:00 08/24/21 06:00 08/24/21 06:00 08/24/21 06:00 08/24/21 06:00 Oxygen Flow Rate (L/min) 60 Oxygen Delivery Method Mechanical Ventilator Weight: 77.7 kg Body Mass Index (BMI) 30.4 Intake & Output: Intake and Output for Last 24 Hours 08/22/21 08/23/21 08/24/21 23:59 23:59 23:59 Intake Total 4523.55 / 5091.55 2182.34 / 2204.34 274.0 / 274.0 Output Total 2200 / 2900 2225 / 2525 590 / 590 Balance 2323.55 / 2191.55 -42.66 / -320.66 -316.0 / -316.0 Medical Nutrition Assessment Dietitian: Malnutrition Criteria Met Start: 08/03/21 13:46 Freq: Status: Active Protocol: Document 08/20/21 11:10 (Rec: 08/20/21 11:10 AG [id number]) Nutrition Malnutrition Evidence of Malnutrition Exists Yes Malnutrition (severe): Acute Illness/Injury Evidenced By Suboptimal Energy Intake ( Severe),Weight Loss (Severe) Clinical Problem Acute Disease or Injury Related Malnutrition Etiology severe, acute malnutrition r/t inadequate energy intake d/t COVID-19 illness Signs/Symptoms as evidenced by unintentional wt loss of 16.18kg/17% since onset of acute illness, estimated PO intake meeting < 50% of estimated nutritional needs >1 week [employer]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 As ordered, enteral nutrition support will meet 70% daily estimated calories, 100% daily estimated protein needs. 1 packet Shravan BID mixed w/ 8 oz water via OGT. Lab / Micro Data Result Diagrams: 08/24/21 04:50 08/24/21 04:50 Labs: Laboratory Results - last 24 hr 08/24/21 04:50: WBC 10.8, RBC 3.72 L, Hgb 10.3 L, Hct 34.0 L, MCV 91.4, MCH 27.7, MCHC 30.3 L, RDW Std Deviation 48.7 H, RDW Coeff of Williams 14.8 H, Plt Count 321, MPV 11.3, Immature Gran % (Auto) 3.000 H, Neut % (Auto) 83.0 H, Lymph % (Auto) 6.6 L, [place] % (Auto) 5.6, Eos % (Auto) 1.3, Baso % (Auto) 0.5, Absolute Neuts (auto) 9.0 H, Absolute Lymphs (auto) 0.72 L, Nucleated RBC % 0 08/24/21 04:50: Sodium 149 H, Potassium 3.6, Chloride 109 H, Carbon Dioxide 34.0 H, Anion Gap 6, BUN 31 H, Creatinine 0.25 L, Estim Creat Clear Calc 68.40, Est GFR (MDRD) Af Amer 464, Est GFR (MDRD) Non-Af 384, BUN/Creatinine Ratio 122.0 H, Glucose 108 H, Calcium 8.6 Micro: Microbiology 08/15/21 10:30 Interface Orders Gram Stain - Final 08/15/21 10:30 Interface Orders Respiratory Culture - Final Stenotrophomonas maltophilia 08/10/21 15:30 Sputum, Induced/Lukens Gram Stain - Final 08/10/21 15:30 Sputum, Induced/Lukens Respiratory Culture - Final Klebsiella pneumoniae sp pneum 08/03/21 18:00 Blood Culture (Wb) - Anticubital Left Blood Culture - Final No growth in 5 days. 08/03/21 20:20 Blood Culture (Wb) - Right Hand Blood Culture - Final No growth in 5 days. 08/03/21 01:00 Sputum, Expectorated/Coughed Gram Stain - Final 08/03/21 01:00 Sputum, Expectorated/Coughed Respiratory Culture - Final Mixed normal respiratory christina. No Streptococcus pneumoniae, beta-hemolytic Streptococcus or Staphylococcus aureus isolated. 08/03/21 13:33 Urine, Clean Catch Legionella Antigen - Final 08/03/21 13:33 Urine, Clean Catch Streptococcus pneumoniae Antigen (M - Final Physical Exam Const alert and no apparent distress General Appearance: intubated and patient mechanically ventilated HEENT normocephalic and head/scalp atraumatic Mouth: endotracheal tube in place and OG tube in place Eyes PERRL and EOMs intact bilaterally Neck supple General: trachea midline Chest inspection of chest normal Chest: symmetrical chest wall rise; Negative for crepitus Resp Auscultation: rhonchi throughout and diminished lung sounds; Negative for rales or wheezes Cardio regular rate and regular rhythm GI normal to inspection, nondistended, normoactive bowel sounds Extremity no clubbing, cyanosis or edema Skin no rashes or lesions noted Neuro no focal motor deficits Sensorium / Orientation: sedated on vent Charges/Coding Procedures Hospitalists Procedures: 54975 Critial Care 1st Hr
--- NOTE | 2021-08-24 07:51 | PCM.PN.SRG ---
Subjective Subjective No issues overnight Objective Data Objective Data Vital Signs: Vital Signs Temp Pulse Resp BP Pulse Ox 99.3 F H 106 H 20 H 115/59 L 91 08/24/21 06:00 08/24/21 07:16 08/24/21 06:00 08/24/21 06:00 08/24/21 06:00 Oxygen Flow Rate (L/min) 60 Oxygen Delivery Method Mechanical Ventilator Weight: 171 lb 4.787 oz Body Mass Index (BMI) 30.4 Intake & Output: Intake and Output for Last 24 Hours 08/22/21 08/23/21 08/24/21 23:59 23:59 23:59 Intake Total 4523.55 / 5091.55 2182.34 / 2204.34 296.0 / 296.0 Output Total 2200 / 2900 2225 / 2525 590 / 590 Balance 2323.55 / 2191.55 -42.66 / -320.66 -294.0 / -294.0 Medical Nutrition Assessment Dietitian: Malnutrition Criteria Met Start: 08/03/21 13:46 Freq: Status: Active Protocol: Document 08/20/21 11:10 AG (Rec: 08/20/21 11:10 [id number]) Nutrition Malnutrition Evidence of Malnutrition Exists Yes Malnutrition (severe): Acute Illness/Injury Evidenced By Suboptimal Energy Intake ( Severe),Weight Loss (Severe) Clinical Problem Acute Disease or Injury Related Malnutrition Etiology severe, acute malnutrition r/t inadequate energy intake d/t COVID-19 illness Signs/Symptoms as evidenced by unintentional wt loss of 16.18kg/17% since onset of acute illness, estimated PO intake meeting < 50% of estimated nutritional needs >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 As ordered, enteral nutrition support will meet 70% daily estimated calories, 100% daily estimated protein needs. 1 packet Shravan BID mixed w/ 8 oz water via OGT. Lab / Micro Data Result Diagrams: 08/24/21 04:50 08/24/21 04:50 Labs: Laboratory Results - last 24 hr 08/24/21 04:50: WBC 10.8, RBC 3.72 L, Hgb 10.3 L, Hct 34.0 L, MCV 91.4, MCH 27.7, MCHC 30.3 L, RDW Std Deviation 48.7 H, RDW Coeff of Williams 14.8 H, Plt Count 321, MPV 11.3, Immature Gran % (Auto) 3.000 H, Neut % (Auto) 83.0 H, Lymph % (Auto) 6.6 L, [place] % (Auto) 5.6, Eos % (Auto) 1.3, Baso % (Auto) 0.5, Absolute Neuts (auto) 9.0 H, Absolute Lymphs (auto) 0.72 L, Nucleated RBC % 0 08/24/21 04:50: Sodium 149 H, Potassium 3.6, Chloride 109 H, Carbon Dioxide 34.0 H, Anion Gap 6, BUN 31 H, Creatinine 0.25 L, Estim Creat Clear Calc 68.40, Est GFR (MDRD) Af Amer 464, Est GFR (MDRD) Non-Af 384, BUN/Creatinine Ratio 122.0 H, Glucose 108 H, Calcium 8.6 Micro: Microbiology 08/15/21 10:30 Interface Orders Gram Stain - Final 08/15/21 10:30 Interface Orders Respiratory Culture - Final Stenotrophomonas maltophilia 08/10/21 15:30 Sputum, Induced/Lukens Gram Stain - Final 08/10/21 15:30 Sputum, Induced/Lukens Respiratory Culture - Final Klebsiella pneumoniae sp pneum 08/03/21 18:00 Blood Culture (Wb) - Anticubital Left Blood Culture - Final No growth in 5 days. 08/03/21 20:20 Blood Culture (Wb) - Right Hand Blood Culture - Final No growth in 5 days. 08/03/21 01:00 Sputum, Expectorated/Coughed Gram Stain - Final 08/03/21 01:00 Sputum, Expectorated/Coughed Respiratory Culture - Final Mixed normal respiratory christina. No Streptococcus pneumoniae, beta-hemolytic Streptococcus or Staphylococcus aureus isolated. 08/03/21 13:33 Urine, Clean Catch Legionella Antigen - Final 08/03/21 13:33 Urine, Clean Catch Streptococcus pneumoniae Antigen (M - Final Physical Exam Const no apparent distress Resp Resp Narrative: Intubated and sedated GI soft to palpation and non-tender Assessment & Plan Assessment/Plan (1) Severe malnutrition: PLAN: Patient had PEG tube placed yesterday with no complication. Patient may resume tube feeds today and use PEG tube for medications. I will sign off please contact if there are any issues. Antwon Hirsch MD Pager: [facility] [address] [place] [address] [address] [place] [address] Office:
[2021-08-24] MEDS: Aspirin 325 MG Tablet GT (08:11)
[2021-08-24] MEDS: Metoprolol Tartrate 25 MG Tablet GT ×2 (08:11→21:32)
[2021-08-24] MEDS: Juven (unflavored) Packet 1 PACKET GT ×2 (08:11→17:01)
[2021-08-24] MEDS: hydroCHLOROthiazide 25 MG Tablet GT (08:11)
[2021-08-24] MEDS: Enoxaparin 30 MG/0.3 ML Syringe SC ×2 (08:12→21:32)
[2021-08-24] MEDS: Chlorhexidine 15 ML PO ×2 (08:12→21:31)
[2021-08-24] MEDS: Losartan Potassium 100 MG Tablet GT (09:22)
[2021-08-24] MEDS: CHLORHEXIDINE GLUC 2% CLOTH 1 EACH TOWELETTE TOPICAL ×2 (09:27→21:30)
[2021-08-24] MEDS: levoFLOXacin IV 750 MG/150 ML BAG 100 MG IV (09:49)
[2021-08-24] MEDS: Senna/Docusate Sodium 1 Tablet 2 TABLET GT (11:41)
[2021-08-24] MEDS: Vital AF 1.2 Cal Liquid 1,000 ML 70 ML GT (11:43)
[2021-08-24 12:57] LABS: Triglycerides 162 mg/dL
--- NOTE | 2021-08-24 13:03 | PCM.PN.HOSP ---
Subjective Subjective No new events. Objective Data Objective Data Vital Signs: Vital Signs Temp Pulse Resp BP Pulse Ox 37.2 C 94 16 114/62 92 08/24/21 12:00 08/24/21 12:00 08/24/21 12:00 08/24/21 12:00 08/24/21 12:00 Oxygen Flow Rate (L/min) 60 Oxygen Delivery Method Mechanical Ventilator Weight: 77.7 kg Body Mass Index (BMI) 30.4 Intake & Output: Intake and Output for Last 24 Hours 08/22/21 08/23/21 08/24/21 23:59 23:59 23:59 Intake Total 4523.55 / 5091.55 2182.34 / 2204.34 666.00 / 666.00 Output Total 2200 / 2900 2225 / 2525 915 / 915 Balance 2323.55 / 2191.55 -42.66 / -320.66 -249.00 / -249.00 Medical Nutrition Assessment Dietitian: Malnutrition Criteria Met Start: 08/03/21 13:46 Freq: Status: Active Protocol: Document 08/20/21 11:10 AG (Rec: 08/20/21 11:10 [id number]) Nutrition Malnutrition Evidence of Malnutrition Exists Yes Malnutrition (severe): Acute Illness/Injury Evidenced By Suboptimal Energy Intake ( Severe),Weight Loss (Severe) Clinical Problem Acute Disease or Injury Related Malnutrition Etiology severe, acute malnutrition r/t inadequate energy intake d/t COVID-19 illness Signs/Symptoms as evidenced by unintentional wt loss of 16.18kg/17% since onset of acute illness, estimated PO intake meeting < 50% of 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 As ordered, enteral nutrition support will meet 70% daily estimated calories, 100% daily estimated protein needs. 1 packet Shravan BID mixed w/ 8 oz water via OGT. Lab / Micro Data Result Diagrams: 08/24/21 04:50 08/24/21 04:50 Labs: Laboratory Results - last 24 hr 08/24/21 04:50: WBC 10.8, RBC 3.72 L, Hgb 10.3 L, Hct 34.0 L, MCV 91.4, MCH 27.7, MCHC 30.3 L, RDW Std Deviation 48.7 H, RDW Coeff of Williams 14.8 H, Plt Count 321, MPV 11.3, Immature Gran % (Auto) 3.000 H, Neut % (Auto) 83.0 H, Lymph % (Auto) 6.6 L, [place] % (Auto) 5.6, Eos % (Auto) 1.3, Baso % (Auto) 0.5, Absolute Neuts (auto) 9.0 H, Absolute Lymphs (auto) 0.72 L, Nucleated RBC % 0 08/24/21 04:50: Sodium 149 H, Potassium 3.6, Chloride 109 H, Carbon Dioxide 34.0 H, Anion Gap 6, BUN 31 H, Creatinine 0.25 L, Estim Creat Clear Calc 68.40, Est GFR (MDRD) Af Amer 464, Est GFR (MDRD) Non-Af 384, BUN/Creatinine Ratio 122.0 H, Glucose 108 H, Calcium 8.6 08/24/21 04:50: Triglycerides 162 Micro: Microbiology 08/15/21 10:30 Interface Orders Gram Stain - Final 08/15/21 10:30 Interface Orders Respiratory Culture - Final Stenotrophomonas maltophilia 08/10/21 15:30 Sputum, Induced/Lukens Gram Stain - Final 08/10/21 15:30 Sputum, Induced/Lukens Respiratory Culture - Final Klebsiella pneumoniae sp pneum 08/03/21 18:00 Blood Culture (Wb) - Anticubital Left Blood Culture - Final No growth in 5 days. 08/03/21 20:20 Blood Culture (Wb) - Right Hand Blood Culture - Final No growth in 5 days. 08/03/21 01:00 Sputum, Expectorated/Coughed Gram Stain - Final 08/03/21 01:00 Sputum, Expectorated/Coughed Respiratory Culture - Final Mixed normal respiratory christina. No Streptococcus pneumoniae, beta-hemolytic Streptococcus or Staphylococcus aureus isolated. 08/03/21 13:33 Urine, Clean Catch Legionella Antigen - Final 08/03/21 13:33 Urine, Clean Catch Streptococcus pneumoniae Antigen (M - Final Physical Exam Const no apparent distress Constitutional Narrative: intubated and sedated. Cardio regular rate, regular rhythm, S1 normal heart sound and S2 normal heart sound GI normal to inspection, nondistended, normoactive bowel sounds, soft to palpation, non-tender and non-distended GI Narrative: PEG Extremity normal to inspection Assessment & Plan Assessment/Plan (1) Acute respiratory failure with hypoxia: (2) Pneumonia due to COVID-19 virus: PLAN: 1. acute hypoxic respiratory failure 2/2 COVID 19 pneumonia and klebsiella pneumonia and stentrophomonas pneumonia wean oxygen as able intubated on 08/10 received furosemide today 08/23: PEG placed. Tracheostomy declined by Dr. Mina 2. COVID 19 pneumonia Unvaccinated completed remdesivir, dexamethasone. received 7 days of baricitinib Quarantine completed 3. Klebsiella and stenotrophomonas pneumonia meropenem completed continue levofloxacin through the 4. VTE prophylaxis: LMWH Charges/Coding Visit Charges Inpatient E&M: 17644 Subs Hosp L2
[2021-08-24] MEDS: Ipratropium/Albuterol Sulfate 3 ML AMPUL.NEB INHALATION ×2 (13:54→19:15)
[2021-08-24 14:54] LABS: CPK Total, Creatine Kinase 45 U/L (39-308)
[2021-08-25] VITALS (36 sets, daily range): BP systolic 101–142; BP diastolic 57–78; PULSE 87–116; RESP 16–23; TEMP 37.1–37.5; O2SAT 88–94
[2021-08-25] MEDS: guaiFENesin 10 ML UDC (200MG/10ML) 20 ML GT ×4 (01:00→17:33)
[2021-08-25] MEDS: Glycerin/Hypromellose/PEG400 15 ml Bottle 1 DRP EACH EYE ×6 (01:35→22:09)
[2021-08-25 04:15] LABS: Absolute Lymphocyte Count 0.71 X10^3/uL (0.83-4.51); Absolute Neutrophil Count 6.9 X10^3/uL (2.0-7.7); Basophil# 0.03 X10^3/uL; Basophil% 0.3 % (0-1); Eosinophil# 0.32 X10^3/uL; Eosinophils% 3.6 % (0-5); Hematocrit 32.1 % (40-54); Hemoglobin 9.9 g/dL (13.0-16.5); Lymphocyte # 0.71 X10^3/ul (0.83-4.51); Lymphocyte % 7.9 % (19-41); Mean Corp Hgb Conc 30.8 g/dL (32-36); Mean Corpuscular Volume 90.9 fL (80-94); Mean Platelet Vol. 10.1 fl (6.2-12.0); Monocyte# 0.58 X10^3/uL; Monocyte% 6.5 % (0-10); NRBC Flagged by Analyzer 0 % (0-5); Neutrophil # 6.94 X10^3/uL (2.7-7.7); Neutrophil % 77.5 % (47-70); Platelet Count 349 K/mm3 (150-450); RBC Distribution Width CV 14.9 % (11.6-14.6); RBC Distribution Width SD 48.2 fl (35.1-43.9); Red Blood Count 3.53 M/mm3 (4.6-6.2)
[2021-08-25 04:30] LABS: Anion Gap 3 (5-15); BUN 26 mg/dL (7-18); Calcium,Total 8.3 mg/dL (8.5-10.1); Chloride 111 mmol/L (98-107); Creatinine, Serum 0.27 mg/dL (0.70-1.30); EST Glomerular Filtration Rate 361 mL/min (>60); Est Glom Filt Rate - Afr Amer 436 mL/min (>60); Glucose 122 mg/dL (74-106); Potassium 3.4 mmol/L (3.5-5.1); Sodium Level 147 mmol/L (136-145)
[2021-08-25] MEDS: Propofol 10MG/Ml 1,000 MG/100 ML Bottle 7 MG CONT INF ×3 (05:00→22:12)
[2021-08-25] MEDS: TITRATION PARAMETER CHANGE 1 EACH IV (05:31)
[2021-08-25] MEDS: Menthol/Lanolin/Calamine/Znox 113 GM Tube 1 APPLIC TOPICAL ×3 (05:33→22:07)
[2021-08-25] MEDS: Potassium Chloride Oral Soln 20 MEQ/15 ML UDC 40 MEQ PO (05:46)
[2021-08-25] MEDS: Ipratropium/Albuterol Sulfate 3 ML AMPUL.NEB INHALATION ×3 (06:41→18:46)
--- NOTE | 2021-08-25 06:49 | PN.CC_ITS ---
Assessment & Plan Assessment/Plan (1) Acute respiratory failure with hypoxia: (2) Pneumonia due to COVID-19 virus: PLAN: RECOMMENDATIONS: 1. Continue to wean FiO2 to maintain oxygen saturations at or above 90%. 2. Continue current antimicrobial regimen. 3. Continue prophylactic Lovenox. 4. Continue appropriate GI prophylaxis. PEG completed. 5. Challenge with diuretics aggressively given increased infiltrates on chest x-ray 6. Continue to titrate tube feeds 7. Attempt to make arrangements for tracheostomy early next week IMPRESSIONS: 1. Acute hypoxemic respiratory failure secondary to COVID-19 pneumonia The patient initially presented to the hospital with worsening shortness of breath and hypoxemia. The patient has completed treatment courses of remdesivir, decadron and partial course of baricitinib. Ultimately, the patient continued to decompensate from a respiratory perspective and had to be intubated on August 10. Sputum culture was positive for Klebsiella and stenotrophomonas, which is currently being addressed with antimicrobial therapy. In the interim, we will continue to wean FiO2 and PEEP as tolerated for saturations greater than 90%. Diuretics will be utilized as needed to maintain euvolemic state, as tolerated by hemodynamics and renal function. We will hold on diuresis for today. Continue to advance tube feeds as tolerated. Free water flushes for hypernatremia. We will need to evaluate other options for tracheostomy 2. Obesity/hypertension/self-reported asthma/prior CVA Complicates care, management, recovery and prognosis. Continue home medic ations as indicated. Continue nutritional support via tube feeds and physical therapy as tolerated. Advance tube feeds. Family very clear that they do want a tracheostomy. TIME: 31 minutes of critical care time, independent of procedures, was spent addressing the patient's acute hypoxemic respiratory failure secondary to COVID- 19 pneumonia, review of all data and collaboration with care team. Subjective Subjective Patient did okay overnight. Nursing is reporting decreased thick secretions over the last 24 hours. Patient continues to have hypernatremia and hyperchloremia despite free water flushes. Oxygenation has remained stable. Patient is interactive and denies any pain. Patient has tolerated reinitiation of tube feeds Objective Data Objective Data Vital Signs: Vital Signs Temp Pulse Resp BP Pulse Ox 37.2 C 104 H 19 H 130/73 H 90 08/25/21 06:00 08/25/21 06:39 08/25/21 06:39 08/25/21 06:00 08/25/21 06:39 Oxygen Flow Rate (L/min) 60 Oxygen Delivery Method Mechanical Ventilator Weight: 78.1 kg Body Mass Index (BMI) 30.4 Intake & Output: Intake and Output for Last 24 Hours 08/23/21 08/24/21 08/25/21 23:59 23:59 23:59 Intake Total 2182.34 / 2204.34 1928.59 / 2150.49 596.37 / 596.37 Output Total 2225 / 2525 1715 / 1715 350 / 350 Balance -42.66 / -320.66 213.59 / 435.49 246.37 / 246.37 Medical Nutrition Assessment Dietitian: Malnutrition Criteria Met Start: 08/03/21 13:46 Freq: Status: Active Protocol: Document 08/20/21 11:10 AG (Rec: 08/20/21 11:10 [email or web address] [id number]) Nutrition Malnutrition Evidence of Malnutrition Exists Yes Malnutrition (severe): Acute Illness/Injury Evidenced By Suboptimal Energy Intake ( Severe),Weight Loss (Severe) Clinical Problem Acute Disease or Injury Related Malnutrition Etiology severe, acute malnutrition r/t inadequate energy intake d/t COVID-19 illness Signs/Symptoms as evidenced by unintentional wt loss of 16.18kg/17% since onset of acute illness, estimated PO intake meeting < 50% of estimated nutritional needs >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 As ordered, enteral nutrition support will meet 70% daily estimated calories, 100% daily estimated protein needs. 1 packet Shravan BID mixed w/ 8 oz water via OGT. Lab / Micro Data Result Diagrams: 08/25/21 04:05 08/25/21 04:05 Labs: Laboratory Results - last 24 hr 08/24/21 04:50: Triglycerides 162 08/24/21 04:50: Total Creatine Kinase 45 08/25/21 04:05: WBC 9.0, RBC 3.53 L, Hgb 9.9 L, Hct 32.1 L, MCV 90.9, MCH 28.0, MCHC 30.8 L, RDW Std Deviation 48.2 H, RDW Coeff of Williams 14.9 H, Plt Count 349, MPV 10.1, Immature Gran % (Auto) 4.200 H, Neut % (Auto) 77.5 H, Lymph % (Auto) 7.9 L, [place] % (Auto) 6.5, Eos % (Auto) 3.6, Baso % (Auto) 0.3, Absolute Neuts (auto) 6.9, Absolute Lymphs (auto) 0.71 L, Nucleated RBC % 0 08/25/21 04:05: Sodium 147 H, Potassium 3.4 L, Chloride 111 H, Carbon Dioxide 33.0 H, Anion Gap 3 L, BUN 26 H, Creatinine 0.27 L, Estim Creat Clear Calc 68.40, Est GFR (MDRD) Af Amer 436, Est GFR (MDRD) Non-Af 361, BUN/Creatinine Ratio 97.0 H, Glucose 122 H, Calcium 8.3 L Micro: Microbiology 08/15/21 10:30 Interface Orders Gram Stain - Final 08/15/21 10:30 Interface Orders Respiratory Culture - Final Stenotrophomonas maltophilia 08/10/21 15:30 Sputum, Induced/Lukens Gram Stain - Final 08/10/21 15:30 Sputum, Induced/Lukens Respiratory Culture - Final Klebsiella pneumoniae sp pneum 08/03/21 18:00 Blood Culture (Wb) - Anticubital Left Blood Culture - Final No growth in 5 days. 08/03/21 20:20 Blood Culture (Wb) - Right Hand Blood Culture - Final No growth in 5 days. 08/03/21 01:00 Sputum, Expectorated/Coughed Gram Stain - Final 08/03/21 01:00 Sputum, Expectorated/Coughed Respiratory Culture - Final Mixed normal respiratory christina. No Streptococcus pneumoniae, beta-hemolytic Streptococcus or Staphylococcus aureus isolated. 08/03/21 13:33 Urine, Clean Catch Legionella Antigen - Final 08/03/21 13:33 Urine, Clean Catch Streptococcus pneumoniae Antigen (M - Final Physical Exam Const alert and no apparent distress General Appearance: intubated and patient mechanically ventilated HEENT normocephalic and head/scalp atraumatic Mouth: endotracheal tube in place and OG tube in place Eyes PERRL and EOMs intact bilaterally Neck supple General: trachea midline Chest inspection of chest normal Chest: symmetrical chest wall rise; Negative for crepitus Resp Auscultation: rhonchi throughout and diminished lung sounds; Negative for rales or wheezes Cardio regular rate and regular rhythm GI normal to inspection, nondistended, normoactive bowel sounds Extremity no clubbing, cyanosis or edema Skin no rashes or lesions noted Neuro no focal motor deficits Sensorium / Orientation: sedated on vent Charges/Coding Procedures Hospitalists Procedures: 85776 Critial Care 1st Hr
[2021-08-25] MEDS: Furosemide 40 MG/4 ML Vial IV (10:01)
[2021-08-25] MEDS: Juven (unflavored) Packet 1 PACKET GT ×2 (10:02→16:08)
[2021-08-25] MEDS: hydroCHLOROthiazide 25 MG Tablet GT (10:02)
[2021-08-25] MEDS: Chlorhexidine 15 ML PO ×2 (10:02→22:07)
[2021-08-25] MEDS: Enoxaparin 30 MG/0.3 ML Syringe SC ×2 (10:02→22:09)
[2021-08-25] MEDS: Senna/Docusate Sodium 1 Tablet 2 TABLET GT ×2 (10:02→22:08)
[2021-08-25] MEDS: Losartan Potassium 100 MG Tablet GT (10:02)
[2021-08-25] MEDS: Metoprolol Tartrate 25 MG Tablet GT ×2 (10:02→22:08)
[2021-08-25] MEDS: Aspirin 325 MG Tablet GT (10:02)
[2021-08-25] MEDS: levoFLOXacin IV 750 MG/150 ML BAG 100 MG IV (10:21)
--- NOTE | 2021-08-25 12:37 | PCM.PN.HOSP ---
Subjective Subjective PEG tube being used and appears to tolerate it. Objective Data Objective Data Vital Signs: Vital Signs Temp Pulse Resp BP Pulse Ox 37.3 C H 91 16 102/77 93 08/25/21 12:00 08/25/21 12:00 08/25/21 12:00 08/25/21 12:00 08/25/21 12:00 Oxygen Flow Rate (L/min) 60 Oxygen Delivery Method Mechanical Ventilator Weight: 78.1 kg Body Mass Index (BMI) 30.4 Intake & Output: Intake and Output for Last 24 Hours 08/23/21 08/24/21 08/25/21 23:59 23:59 23:59 Intake Total 2182.34 / 2204.34 1928.59 / 2150.49 1902.87 / 1902.87 Output Total 2225 / 2525 1715 / 1715 1700 / 1700 Balance -42.66 / -320.66 213.59 / 435.49 202.87 / 202.87 Medical Nutrition Assessment Dietitian: Malnutrition Criteria Met Start: 08/03/21 13:46 Freq: Status: Active Protocol: Document 08/25/21 08:04 AG (Rec: 08/25/21 08:04 [id number]) Nutrition Malnutrition Evidence of Malnutrition Exists Yes Malnutrition (severe): Acute Illness/Injury Evidenced By Suboptimal Energy Intake ( Severe),Weight Loss (Severe) Clinical Problem Acute Disease or Injury Related Malnutrition Etiology severe, acute malnutrition r/t inadequate energy intake d/t COVID-19 illness Signs/Symptoms as evidenced by unintentional wt loss of ~15kg/16% since onset of acute illness, estimated PO intake meeting < 50% of estimated nutritional needs >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 Started at 25mL/hour and increased by 15mL/hour every 8 hours until goal rate is achieved. Lab / Micro Data Result Diagrams: 08/25/21 04:05 08/25/21 04:05 Labs: Laboratory Results - last 24 hr 08/24/21 04:50: Triglycerides 162 08/24/21 04:50: Total Creatine Kinase 45 08/25/21 04:05: WBC 9.0, RBC 3.53 L, Hgb 9.9 L, Hct 32.1 L, MCV 90.9, MCH 28.0, MCHC 30.8 L, RDW Std Deviation 48.2 H, RDW Coeff of Williams 14.9 H, Plt Count 349, MPV 10.1, Immature Gran % (Auto) 4.200 H, Neut % (Auto) 77.5 H, Lymph % (Auto) 7.9 L, [place] % (Auto) 6.5, Eos % (Auto) 3.6, Baso % (Auto) 0.3, Absolute Neuts (auto) 6.9, Absolute Lymphs (auto) 0.71 L, Nucleated RBC % 0 08/25/21 04:05: Sodium 147 H, Potassium 3.4 L, Chloride 111 H, Carbon Dioxide 33.0 H, Anion Gap 3 L, BUN 26 H, Creatinine 0.27 L, Estim Creat Clear Calc 68.40, Est GFR (MDRD) Af Amer 436, Est GFR (MDRD) Non-Af 361, BUN/Creatinine Ratio 97.0 H, Glucose 122 H, Calcium 8.3 L Micro: Microbiology 08/15/21 10:30 Interface Orders Gram Stain - Final 08/15/21 10:30 Interface Orders Respiratory Culture - Final Stenotrophomonas maltophilia 08/10/21 15:30 Sputum, Induced/Lukens Gram Stain - Final 08/10/21 15:30 Sputum, Induced/Lukens Respiratory Culture - Final Klebsiella pneumoniae sp pneum 08/03/21 18:00 Blood Culture (Wb) - Anticubital Left Blood Culture - Final No growth in 5 days. 08/03/21 20:20 Blood Culture (Wb) - Right Hand Blood Culture - Final No growth in 5 days. 08/03/21 01:00 Sputum, Expectorated/Coughed Gram Stain - Final 08/03/21 01:00 Sputum, Expectorated/Coughed Respiratory Culture - Final Mixed normal respiratory christina. No Streptococcus pneumoniae, beta-hemolytic Streptococcus or Staphylococcus aureus isolated. 08/03/21 13:33 Urine, Clean Catch Legionella Antigen - Final 08/03/21 13:33 Urine, Clean Catch Streptococcus pneumoniae Antigen (M - Final Physical Exam Const Constitutional Narrative: intubated and sedated Resp normal respiratory effort, no retractions, no use of accessory muscles and clear to auscultation bilaterally Cardio regular rate, regular rhythm, S1 normal heart sound and S2 normal heart sound GI normal to inspection, nondistended, normoactive bowel sounds and soft to palpation GI Narrative: PEG in place Assessment & Plan Assessment/Plan (1) Acute respiratory failure with hypoxia: (2) Pneumonia due to COVID-19 virus: PLAN: 1. acute hypoxic respiratory failure 2/2 COVID 19 pneumonia and klebsiella pneumonia and stentrophomonas pneumonia wean oxygen as able intubated on 08/10 received furosemide today 08/23: PEG placed. 08/25: PEG being utilized for tube feeds with no acute issues Tracheostomy declined by Dr. Mnia 2. COVID 19 pneumonia Unvaccinated completed remdesivir, dexamethasone. received 7 days of baricitinib Quarantine completed 3. Klebsiella and stenotrophomonas pneumonia meropenem completed continue levofloxacin through the 4. VTE prophylaxis: LMWH 5. Disposition: pending tracheostomy, which can hopefully be performed here (as it has in the recent past). Then eventually to an LTAC. Charges/Coding Visit Charges Inpatient E&M: 03241 Subs Hosp L2
[2021-08-25] MEDS: Vital AF 1.2 Cal Liquid 1,000 ML 70 ML GT (13:58)
[2021-08-26] VITALS (39 sets, daily range): BP systolic 96–133; BP diastolic 50–73; PULSE 88–123; RESP 17–26; TEMP 36.1–37.8; O2SAT 88–93
[2021-08-26] MEDS: guaiFENesin 10 ML UDC (200MG/10ML) 20 ML GT ×4 (00:49→17:10)
[2021-08-26] MEDS: Glycerin/Hypromellose/PEG400 15 ml Bottle 1 DRP EACH EYE ×6 (02:30→21:29)
[2021-08-26 04:39] LABS: Hematocrit 30.4 % (40-54); Hemoglobin 9.5 g/dL (13.0-16.5); Mean Corp Hgb Conc 31.3 g/dL (32-36); Mean Corpuscular Hgb 28.1 pg (27.0-32.0); Mean Corpuscular Volume 89.9 fL (80-94); Mean Platelet Vol. 9.6 fl (6.2-12.0); POSITIVE COUNT YES; POSITIVE MORPHOLOGY YES; Platelet Count 344 K/mm3 (150-450); RBC Distribution Width CV 14.7 % (11.6-14.6); RBC Distribution Width SD 47.3 fl (35.1-43.9); Red Blood Count 3.38 M/mm3 (4.6-6.2); White Blood Count 8.2 K/mm3 (4.4-11.0)
[2021-08-26 04:44] LABS: Differential Indicated MANUAL DIFF
[2021-08-26 04:57] LABS: Anion Gap 5 (5-15); BUN 26 mg/dL (7-18); BUN/Creat Ratio 96.3 RATIO (10-20); Calcium,Total 8.2 mg/dL (8.5-10.1); Chloride 107 mmol/L (98-107); Creatinine, Serum 0.27 mg/dL (0.70-1.30); EST Glomerular Filtration Rate 358 mL/min (>60); Est Glom Filt Rate - Afr Amer 433 mL/min (>60); Glucose 131 mg/dL (74-106); Potassium 3.6 mmol/L (3.5-5.1); Sodium Level 144 mmol/L (136-145)
[2021-08-26 05:05] LABS: Total Cells Counted 100 (MANUAL DIFF)
[2021-08-26 05:07] LABS: Eosinophil 2 % (0-5); Lymphocyte 6 % (19-41); Metamyelocyte 1 % (0-1); Monocyte 3 % (0-10); Myelocyte 1 % (0-0); Neutrophil-Band 2 % (0-5); Neutrophil-Segmented 85 % (47-70); Platelet Estimate ADEQUATE (ADEQ); Red Cell Morphology NORM C+C NORMAL (NORM C&C)
[2021-08-26 05:08] LABS: Absolute Lymphocyte Count 0.49 X10^3/uL (0.83-4.51); Absolute Neutrophil Count 7.1 X10^3/uL (2.0-7.7); Lymphocyte # 0.49 X10^3/ul (0.83-4.51)
[2021-08-26] MEDS: CHLORHEXIDINE GLUC 2% CLOTH 1 EACH TOWELETTE TOPICAL (06:28)
[2021-08-26] MEDS: Vital AF 1.2 Cal Liquid 1,000 ML 70 ML GT ×2 (06:28→22:30)
[2021-08-26] MEDS: Menthol/Lanolin/Calamine/Znox 113 GM Tube 1 APPLIC TOPICAL ×3 (06:29→21:11)
--- NOTE | 2021-08-26 07:17 | PCM.PN.INT ---
Assessment & Plan Assessment/Plan (1) Acute respiratory failure with hypoxia: (2) Pneumonia due to COVID-19 virus: PLAN: RECOMMENDATIONS: 1. Continue to wean FiO2 to maintain oxygen saturations at or above 90%. 2. Continue current antimicrobial regimen. 3. Continue prophylactic Lovenox. 4. Continue appropriate GI prophylaxis. PEG completed. 5. Challenge with diuretics as labs allow 6. Continue to titrate tube feeds. Aggressive bowel regimen 7. Attempt to make arrangements for tracheostomy early next week IMPRESSIONS: 1. Acute hypoxemic respiratory failure secondary to COVID-19 pneumonia The patient initially presented to the hospital with worsening shortness of breath and hypoxemia. The patient has completed treatment courses of remdesivir, decadron and partial course of baricitinib. Ultimately, the patient continued to decompensate from a respiratory perspective and had to be intubated on August 10. Sputum culture was positive for Klebsiella and stenotrophomonas, which is currently being addressed with antimicrobial therapy. In the interim, we will continue to wean FiO2 and PEEP as tolerated for saturations greater than 90%. Diuretics will be utilized as needed to maintain euvolemic state, as tolerated by hemodynamics and renal function. We will hold on diuresis for today. Patient with increased FiO2 requirements over the last 24 hours. Clinical suspicion for mucous plugging over volume overload 2. Obesity/hypertension/self-reported asthma/prior CVA Complicates care, management, recovery and prognosis. Continue home medications as indicated. Continue nutritional support via tube feeds and physical therapy as tolerated. Advance tube feeds. Family very clear that they do want a tracheostomy. Will make bowel regimen more aggressive given 3 days without bowel movement. TIME: 32 minutes of critical care time, independent of procedures, was spent addressing the patient's acute hypoxemic respiratory failure secondary to COVID-19 pneumonia, review of all data and collaboration with care team. Subjective Subjective Patient did okay overnight. Patient has had an increase in FiO2 requirements. Patient has not had a bowel movement in 3 days, but is tolerating tube feeds. Patient remains significantly weak to the point that he does not require restraints. Objective Data Objective Data Vital Signs: Vital Signs Temp Pulse Resp BP Pulse Ox 36.2 C L 101 H 18 104/59 L 92 08/26/21 05:00 08/26/21 05:00 08/26/21 05:00 08/26/21 05:00 08/26/21 05:00 Oxygen Flow Rate (L/min) 60 Oxygen Delivery Method Mechanical Ventilator Weight: 79.8 kg Body Mass Index (BMI) 30.4 Intake & Output: Intake and Output for Last 24 Hours 08/24/21 08/25/21 08/26/21 23:59 23:59 23:59 Intake Total 1928.59 / 2150.49 3080.87 / 4200.87 2139.75 / 2139.75 Output Total 1715 / 1715 2300 / 2825 900 / 900 Balance 213.59 / 435.49 780.87 / 1375.87 1239.75 / 1239.75 Medical Nutrition Assessment Dietitian: Malnutrition Criteria Met Start: 08/03/21 13:46 Freq: Status: Active Protocol: Document 08/25/21 08:04 AMIRA (Rec: 08/25/21 08:04 [id number]) Nutrition Malnutrition Evidence of Malnutrition Exists Yes Malnutrition (severe): Acute Illness/Injury Evidenced By Suboptimal Energy Intake ( Severe),Weight Loss (Severe) Clinical Problem Acute Disease or Injury Related Malnutrition Etiology severe, acute malnutrition r/t inadequate energy intake d/t COVID-19 illness Signs/Symptoms as evidenced by unintentional wt loss of ~15kg/16% since onset of acute illness, estimated PO intake meeting < 50% of estimated nutritional needs >1 week [employer]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 Started at 25mL/hour and increased by 15mL/hour every 8 hours until goal rate is achieved. Lab / Micro Data Result Diagrams: 08/26/21 04:30 08/26/21 04:30 Labs: Laboratory Results - last 24 hr 08/26/21 04:30: WBC 8.2, RBC 3.38 L, Hgb 9.5 L, Hct 30.4 L, MCV 89.9, MCH 28.1, MCHC 31.3 L, RDW Std Deviation 47.3 H, RDW Coeff of Williams 14.7 H, Plt Count 344, MPV 9.6, Neut % (Auto) Not Reportable, Absolute Neuts (auto) 7.1, Absolute Lymphs (auto) 0.49 L, Total Counted 100, Neutrophils % (Manual) 85 H, Band Neutrophils % 2, Lymphocytes % (Manual) 6 L, Monocytes % (Manual) 3, Eosinophils % (Manual) 2, Metamyelocytes % 1, Myelocytes % 1 H, Diff Path Review May foll, Platelet Estimate ADEQUATE, RBC Morphology NORM C+C 08/26/21 04:30: Sodium 144, Potassium 3.6, Chloride 107, Carbon Dioxide 32.0, Anion Gap 5, BUN 26 H, Creatinine 0.27 L, Estim Creat Clear Calc 68.40, Est GFR (MDRD) Af Amer 433, Est GFR (MDRD) Non-Af 358, BUN/Creatinine Ratio 96.3 H, Glucose 131 H, Calcium 8.2 L Micro: Microbiology 08/15/21 10:30 Interface Orders Gram Stain - Final 08/15/21 10:30 Interface Orders Respiratory Culture - Final Stenotrophomonas maltophilia 08/10/21 15:30 Sputum, Induced/Lukens Gram Stain - Final 08/10/21 15:30 Sputum, Induced/Lukens Respiratory Culture - Final Klebsiella pneumoniae sp pneum 08/03/21 18:00 Blood Culture (Wb) - Anticubital Left Blood Culture - Final No growth in 5 days. 08/03/21 20:20 Blood Culture (Wb) - Right Hand Blood Culture - Final No growth in 5 days. 08/03/21 01:00 Sputum, Expectorated/Coughed Gram Stain - Final 08/03/21 01:00 Sputum, Expectorated/Coughed Respiratory Culture - Final Mixed normal respiratory christina. No Streptococcus pneumoniae, beta-hemolytic Streptococcus or Staphylococcus aureus isolated. 08/03/21 13:33 Urine, Clean Catch Legionella Antigen - Final 08/03/21 13:33 Urine, Clean Catch Streptococcus pneumoniae Antigen (M - Final Physical Exam Const alert and no apparent distress Constitutional Narrative: Moderate secretions with suctioning General Appearance: intubated and patient mechanically ventilated HEENT normocephalic and head/scalp atraumatic Mouth: endotracheal tube in place and OG tube in place Eyes PERRL and EOMs intact bilaterally Neck supple General: trachea midline Chest inspection of chest normal Chest: symmetrical chest wall rise; Negative for crepitus Resp Auscultation: rhonchi throughout and diminished lung sounds; Negative for rales or wheezes Cardio regular rate and regular rhythm GI normal to inspection, nondistended, normoactive bowel sounds Extremity no clubbing, cyanosis or edema Skin no rashes or lesions noted Neuro no focal motor deficits Sensorium / Orientation: sedated on vent Charges/Coding Procedures Hospitalists Procedures: 09191 Critial Care 1st Hr
[2021-08-26] MEDS: Ipratropium/Albuterol Sulfate 3 ML AMPUL.NEB INHALATION ×3 (07:18→19:00)
[2021-08-26] MEDS: Losartan Potassium 100 MG Tablet GT (09:18)
[2021-08-26] MEDS: Aspirin 325 MG Tablet GT (09:18)
[2021-08-26] MEDS: Juven (unflavored) Packet 1 PACKET GT ×2 (09:18→17:10)
[2021-08-26] MEDS: Metoprolol Tartrate 25 MG Tablet GT ×2 (09:19→21:10)
[2021-08-26] MEDS: hydroCHLOROthiazide 25 MG Tablet GT (09:19)
[2021-08-26] MEDS: Senna/Docusate Sodium 1 Tablet 2 TABLET GT ×2 (09:19→21:10)
[2021-08-26] MEDS: Enoxaparin 30 MG/0.3 ML Syringe SC ×2 (09:19→21:10)
--- NOTE | 2021-08-26 09:23 | PN.HOSP_ITS ---
Subjective Subjective increased oxygen requirements. tolerating PEG tube feeds. Objective Data Objective Data Vital Signs: Vital Signs Temp Pulse Resp BP Pulse Ox 37.3 C H 104 H 22 H 122/73 H 91 08/26/21 07:00 08/26/21 08:00 08/26/21 07:18 08/26/21 07:00 08/26/21 07:00 Oxygen Flow Rate (L/min) 60 Oxygen Delivery Method Mechanical Ventilator Weight: 79.8 kg Body Mass Index (BMI) 30.4 Intake & Output: Intake and Output for Last 24 Hours 08/24/21 08/25/21 08/26/21 23:59 23:59 23:59 Intake Total 1928.59 / 2150.49 3080.87 / 4200.87 2411.15 / 2411.15 Output Total 1715 / 1715 2300 / 2825 900 / 900 Balance 213.59 / 435.49 780.87 / 1375.87 1511.15 / 1511.15 Medical Nutrition Assessment Dietitian: Malnutrition Criteria Met Start: 08/03/21 13:46 Freq: Status: Active Protocol: Document 08/25/21 08:04 (Rec: 08/25/21 08:04 [id number]) Nutrition Malnutrition Evidence of Malnutrition Exists Yes Malnutrition (severe): Acute Illness/Injury Evidenced By Suboptimal Energy Intake ( Severe),Weight Loss (Severe) Clinical Problem Acute Disease or Injury Related Malnutrition Etiology severe, acute malnutrition r/t inadequate energy intake d/t COVID-19 illness Signs/Symptoms as evidenced by unintentional wt loss of ~15kg/16% since onset of acute illness, estimated PO intake meeting < 50% of estimated nutritional needs >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 Started at 25mL/hour and increased by 15mL/hour every 8 hours until goal rate is achieved. Lab / Micro Data Result Diagrams: 08/26/21 04:30 08/26/21 04:30 Labs: Laboratory Results - last 24 hr 08/26/21 04:30: WBC 8.2, RBC 3.38 L, Hgb 9.5 L, Hct 30.4 L, MCV 89.9, MCH 28.1, MCHC 31.3 L, RDW Std Deviation 47.3 H, RDW Coeff of Williams 14.7 H, Plt Count 344, MPV 9.6, Neut % (Auto) Not Reportable, Absolute Neuts (auto) 7.1, Absolute Lymphs (auto) 0.49 L, Total Counted 100, Neutrophils % (Manual) 85 H, Band Neutrophils % 2, Lymphocytes % (Manual) 6 L, Monocytes % (Manual) 3, Eosinophils % (Manual) 2, Metamyelocytes % 1, Myelocytes % 1 H, Diff Path Review December, Platelet Estimate ADEQUATE, RBC Morphology NORM C+C 08/26/21 04:30: Sodium 144, Potassium 3.6, Chloride 107, Carbon Dioxide 32.0, Anion Gap 5, BUN 26 H, Creatinine 0.27 L, Estim Creat Clear Calc 68.40, Est GFR (MDRD) Af Amer 433, Est GFR (MDRD) Non-Af 358, BUN/Creatinine Ratio 96.3 H, Glucose 131 H, Calcium 8.2 L Micro: Microbiology 08/15/21 10:30 Interface Orders Gram Stain - Final 08/15/21 10:30 Interface Orders Respiratory Culture - Final Stenotrophomonas maltophilia 08/10/21 15:30 Sputum, Induced/Lukens Gram Stain - Final 08/10/21 15:30 Sputum, Induced/Lukens Respiratory Culture - Final Klebsiella pneumoniae sp pneum 08/03/21 18:00 Blood Culture (Wb) - Anticubital Left Blood Culture - Final No growth in 5 days. 08/03/21 20:20 Blood Culture (Wb) - Right Hand Blood Culture - Final No growth in 5 days. 08/03/21 01:00 Sputum, Expectorated/Coughed Gram Stain - Final 08/03/21 01:00 Sputum, Expectorated/Coughed Respiratory Culture - Final Mixed normal respiratory christina. No Streptococcus pneumoniae, beta-hemolytic Streptococcus or Staphylococcus aureus isolated. 08/03/21 13:33 Urine, Clean Catch Legionella Antigen - Final 08/03/21 13:33 Urine, Clean Catch Streptococcus pneumoniae Antigen (M - Final Physical Exam Const Constitutional Narrative: intubated and sedated. Resp Resp Narrative: coarse breath sounds. Cardio regular rate, regular rhythm, S1 normal heart sound and S2 normal heart sound GI normal to inspection, nondistended, normoactive bowel sounds, soft to palpation, non-tender and non-distended Neuro Sensorium / Orientation: awake and alert Assessment & Plan Assessment/Plan (1) Acute respiratory failure with hypoxia: (2) Pneumonia due to COVID-19 virus: PLAN: 1. acute hypoxic respiratory failure 2/2 COVID 19 pneumonia and klebsiella pneumonia and stentrophomonas pneumonia wean oxygen as able intubated on 08/10 received furosemide today 08/23: PEG placed. 08/25: PEG being utilized for tube feeds with no acute issues Tracheostomy declined by Dr. Mina 2. COVID 19 pneumonia Unvaccinated completed remdesivir, dexamethasone. received 7 days of baricitinib Quarantine completed 3. Klebsiella and stenotrophomonas pneumonia meropenem completed levofloxacin completed 4. VTE prophylaxis: LMWH 5. Disposition: pending tracheostomy, which can hopefully be performed here (as it has in the recent past). Then eventually to an LTAC. Charges/Coding Visit Charges Inpatient E&M: 42431 Subs Hosp L2
[2021-08-26] MEDS: Chlorhexidine 15 ML PO ×2 (09:26→21:12)
[2021-08-26] MEDS: Propofol 10MG/Ml 1,000 MG/100 ML Bottle 7.2 MG CONT INF ×2 (10:25→22:30)
[2021-08-26] MEDS: Polyethylene Glycol 3350 17 GM PACKET GT (11:47)
--- NOTE | 2021-08-26 18:40 | RAD_ITS ---
STUDY: X-RAY CHEST REASON FOR EXAM: Male, 66 years old. Fever and cough TECHNIQUE: Single AP portable view of the chest. COMPARISON: 08/21/2021 FINDINGS: EKG leads overlie the chest. Stable appearance of the ET tube, NG tube has apparently been removed since the previous study. Lungs are expanded with progression/worsening of interstitial and airspace opacifications in both lung robles since the previous study. Normal size heart. Normal mediastinum and jesus. Normal visualized pulmonary arteries. Normal visualized aortic arch and descending thoracic aorta. There are diffuse degenerative changes of the visualized thoracic spine. There is degenerative osteoarthritis of the bilateral shoulders. There is no demonstrated abnormality of the visualized soft tissue structures of the upper abdomen. RAD/Chest 1 View (Portable) IMPRESSION: Progression/worsening of diffuse interstitial and airspace opacifications in both lung robles since the previous study. Stable appearance of the NG tube Electronically Signed: Cl Conroy MD at 21:00 EST , Service support ,
[2021-08-26 19:20] LABS: Allen Test Positive; Base Excess 8 mmol/L (-2 to +2); Bicarbonate 31.9 mmol/L (22-26); Blood Gas Specimen Type ART; FI02 90; Mode AC; O2 Delivery Device Adult Vent; PEEP 10; PO2 55 mmHG (75-100); RR 14; SITE L Radial; SO2 88 % (95-99); Total Carbon Dioxide 34 mmol/L; Vt 450; pCO2 49.3 mmHg (35-45); pH 7.42 (7.35-7.45)
[2021-08-26] MEDS: 0.9% Saline Lock 10 ML Syringe IV (21:09)
[2021-08-27] VITALS (38 sets, daily range): BP systolic 98–128; BP diastolic 54–78; PULSE 95–126; RESP 19–31; TEMP 37.3–37.6; O2SAT 86–95
[2021-08-27] MEDS: guaiFENesin 10 ML UDC (200MG/10ML) 20 ML GT ×4 (01:00→16:54)
[2021-08-27] MEDS: Glycerin/Hypromellose/PEG400 15 ml Bottle 1 DRP EACH EYE ×6 (02:00→21:29)
[2021-08-27 04:12] LABS: Hematocrit 32.5 % (40-54); Hemoglobin 10.1 g/dL (13.0-16.5); Mean Corp Hgb Conc 31.1 g/dL (32-36); Mean Corpuscular Hgb 27.6 pg (27.0-32.0); Mean Corpuscular Volume 88.8 fL (80-94); Mean Platelet Vol. 10.9 fl (6.2-12.0); POSITIVE COUNT YES; POSITIVE MORPHOLOGY YES; Platelet Count 334 K/mm3 (150-450); RBC Distribution Width CV 14.9 % (11.6-14.6); RBC Distribution Width SD 47.4 fl (35.1-43.9); Red Blood Count 3.66 M/mm3 (4.6-6.2); White Blood Count 8.9 K/mm3 (4.4-11.0)
[2021-08-27 04:14] LABS: Differential Indicated MANUAL DIFF
[2021-08-27 04:21] LABS: Anion Gap 4 (5-15); BUN 24 mg/dL (7-18); BUN/Creat Ratio 102.6 RATIO (10-20); Calcium,Total 8.3 mg/dL (8.5-10.1); Chloride 106 mmol/L (98-107); Creatinine, Serum 0.23 mg/dL (0.70-1.30); EST Glomerular Filtration Rate 422 mL/min (>60); Est Glom Filt Rate - Afr Amer 510 mL/min (>60); Glucose 121 mg/dL (74-106); Potassium 3.7 mmol/L (3.5-5.1); Sodium Level 143 mmol/L (136-145)
[2021-08-27] MEDS: CHLORHEXIDINE GLUC 2% CLOTH 1 EACH TOWELETTE TOPICAL (04:30)
[2021-08-27] MEDS: TITRATION PARAMETER CHANGE 1 EACH IV (04:45)
[2021-08-27 04:48] LABS: Absolute Lymphocyte Count 0.89 X10^3/uL (0.83-4.51); Eosinophil 2 % (0-5); Lymphocyte 10 % (19-41); Metamyelocyte 1 % (0-1); Monocyte 5 % (0-10); Myelocyte 1 % (0-0); Neutrophil-Band 3 % (0-5); Neutrophil-Segmented 76 % (47-70); Platelet Estimate ADEQUATE (ADEQ); Promyelocyte 2 % (0-0)
[2021-08-27 04:51] LABS: Anisocytosis 1+; Red Cell Morphology NORM C+C NORMAL (NORM C&C)
[2021-08-27] MEDS: Menthol/Lanolin/Calamine/Znox 113 GM Tube 1 APPLIC TOPICAL ×3 (05:25→21:03)
--- NOTE | 2021-08-27 06:21 | PN.CC_ITS ---
Assessment & Plan Assessment/Plan (1) Acute respiratory failure with hypoxia: (2) Pneumonia due to COVID-19 virus: PLAN: RECOMMENDATIONS: 1. Continue to wean FiO2 to maintain oxygen saturations at or above 90%. 2. Continue prophylactic Lovenox. 3. Check D-dimer and BNP. If D-dimer is elevated, will increase to therapeutic Lovenox. 4. Continue appropriate GI prophylaxis. 5. Aggressive diuresis as tolerated by hemodynamics and renal function. 6. Continue tube feeds as tolerated. 7. Goals of care discussion with the patient's . IMPRESSIONS: 1. Acute hypoxemic respiratory failure secondary to COVID-19 pneumonia The patient initially presented to the hospital with worsening shortness of breath and hypoxemia. The patient has completed treatment courses of remdesivir, decadron and partial course of baricitinib. Ultimately, the patient continued to decompensate from a respiratory perspective and had to be intubated on August 10. Sputum culture was positive for Klebsiella and stenotrophomonas, for which the patient completed an antibiotic treatment course. Plan to continue to wean FiO2 and PEEP as tolerated for saturations greater than 90%. Despite all of the aforementioned, the patient's respiratory status remains quite tenuous. Although there were tentative plans for tracheostomy, the patient is too unstable from a respiratory perspective to proceed at the current time. Will attempt to aggressively diurese the patient today. Repeat D-dimer will be obtained and if elevated the patient will be vikas omntrell on therapeutic Lovenox. 2. Obesity/hypertension/self-reported asthma/prior CVA Complicates care, management, recovery and prognosis. Continue home medications as indicated. Continue nutritional support via tube feeds and physical therapy as tolerated. TIME: 37 minutes of critical care time, independent of procedures, was spent addressing the patient's acute hypoxemic respiratory failure secondary to COVID- 19 pneumonia, secondary bacterial pneumonia, review of all data and collaboration with the care team. Subjective Subjective The patient was seen and examined at the bedside this morning. Events from the last 24 hours have been reviewed. The patient currently has a low-grade fever but remains otherwise hemodynamically stable. The patient remains on assist control mode of mechanical ventilation with an FiO2 requirement of 90% and PEEP of 10. The patient is currently tolerating tube feeds. He remains sedated on propofol and fentanyl. The patient is currently documented to be overall net +11.6 L for the hospitalization. Renal function is stable. Chest x-ray continues to demonstrate significant bilateral airspace disease. Objective Data Objective Data The patient's most recent lab work, culture data and imaging studies have all been personally reviewed. Sputum culture dated August 10 was positive for Klebsiella pneumoniae. Repeat sputum culture from August 15 is growing stenotrophomonas. Vital Signs: Vital Signs Temp Pulse Resp BP Pulse Ox 99.5 F H 107 H 20 H 124/67 H 89 08/27/21 04:00 08/27/21 04:00 08/27/21 04:00 08/27/21 04:00 08/27/21 04:00 Oxygen Flow Rate (L/min) 60 Oxygen Delivery Method Mechanical Ventilator Weight: 79 kg Body Mass Index (BMI) 30.4 Intake & Output: Intake and Output for Last 24 Hours 08/25/21 08/26/21 08/27/21 23:59 23:59 23:59 Intake Total 3080.87 / 4200.87 4397.23 / 4896.93 938.60 / 938.60 Output Total 2300 / 2825 1700 / 2150 575 / 575 Balance 780.87 / 1375.87 2697.23 / 2746.93 363.60 / 363.60 Medical Nutrition Assessment Dietitian: Malnutrition Criteria Met Start: 08/03/21 13:46 Freq: Status: Active Protocol: Document 08/26/21 09:55 YAEL (Rec: 08/26/21 09:56 [facility] [id number]) Nutrition Malnutrition Evidence of Malnutrition Exists Yes Malnutrition (severe): Acute Illness/Injury Evidenced By Suboptimal Energy Intake ( Severe),Weight Loss (Severe) Clinical Problem Acute Disease or Injury Related Malnutrition Etiology severe, acute malnutrition r/t inadequate energy intake d/t COVID-19 illness Signs/Symptoms as evidenced by unintentional wt loss of ~10.9kg/12.1% since adm, estimated PO intake meeting <50% of estimated nutritional needs >1 week 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 Flush amount decreased improved sodium. Lab / Micro Data Attestation: I reviewed the patient's lab results. Result Diagrams: 08/27/21 03:35 08/27/21 03:35 Labs: Laboratory Results - last 24 hr 08/27/21 03:35: WBC 8.9, RBC 3.66 L, Hgb 10.1 L, Hct 32.5 L, MCV 88.8, MCH 27.6, MCHC 31.1 L, RDW Std Deviation 47.4 H, RDW Coeff of Williams 14.9 H, Plt Count 334, MPV 10.9, Neut % (Auto) Not Reportable, Absolute Neuts (auto) 7.0, Absolute Lymphs (auto) 0.89, Neutrophils % (Manual) 76 H, Band Neutrophils % 3, L ymphocytes % (Manual) 10 L, Monocytes % (Manual) 5, Eosinophils % (Manual) 2, Metamyelocytes % 1, Myelocytes % 1 H, Promyelocytes % 2 H, Diff Path Review December, Platelet Estimate ADEQUATE, RBC Morphology NORM C+C, Anisocytosis 1+ 08/27/21 03:35: Sodium 143, Potassium 3.7, Chloride 106, Carbon Dioxide 33.0 H, Anion Gap 4 L, BUN 24 H, Creatinine 0.23 L, Estim Creat Clear Calc 68.40, Est GFR (MDRD) Af Amer 510, Est GFR (MDRD) Non-Af 422, BUN/Creatinine Ratio 102.6 H, Glucose 121 H, Calcium 8.3 L Micro: Microbiology 08/15/21 10:30 Interface Orders Gram Stain - Final 08/15/21 10:30 Interface Orders Respiratory Culture - Final Stenotrophomonas maltophilia 08/10/21 15:30 Sputum, Induced/Lukens Gram Stain - Final 08/10/21 15:30 Sputum, Induced/Lukens Respiratory Culture - Final Klebsiella pneumoniae sp pneum 08/03/21 18:00 Blood Culture (Wb) - Anticubital Left Blood Culture - Final No growth in 5 days. 08/03/21 20:20 Blood Culture (Wb) - Right Hand Blood Culture - Final No growth in 5 days. 08/03/21 01:00 Sputum, Expectorated/Coughed Gram Stain - Final 08/03/21 01:00 Sputum, Expectorated/Coughed Respiratory Culture - Final Mixed normal respiratory christina. No Streptococcus pneumoniae, beta-hemolytic Streptococcus or Staphylococcus aureus isolated. 08/03/21 13:33 Urine, Clean Catch Legionella Antigen - Final 08/03/21 13:33 Urine, Clean Catch Streptococcus pneumoniae Antigen (M - Final ABG Data ABG results: ABG 08/26/21 19:15 Specimen Type ART Sample Site L Radial pH 7.42 Bicarbonate Actual 31.9 H Total CO2 34 Base Excess 8 H O2 Saturation 88 L O2 % 90 ABG pCO2 49.3 H ABG pO2 55 L Raul Test Positive Respiration Rate 14 O2 Delivery Device Adult Vent Vent Mode AC Tidal Volume 450 POC PEEP 10 Radiography Diagnostic Testing: Radiology Impression Chest X-Ray 08/26/21 18:40 IMPRESSION: Progression/worsening of diffuse interstitial and airspace opacifications in both lung robles since the previous study. Stable appearance of the NG tube Electronically Signed: Cl Conroy MD at 21:00 EST , Service support , Physical Exam Const no apparent distress General Appearance: intubated and patient mechanically ventilated HEENT normocephalic and head/scalp atraumatic Mouth: endotracheal tube in place and OG tube in place Eyes PERRL and EOMs intact bilaterally Neck supple General: trachea midline Resp Effort and Inspection: tachypneic Auscultation: diminished lung sounds; Negative for rales, rhonchi or wheezes Cardio S1 normal heart sound and S2 normal heart sound Rate: tachycardic GI normal to inspection, nondistended, normoactive bowel sounds Inspection: GI tube present Extremity General Extremity: edema; Negative for clubbing Skin no rashes or lesions noted Neuro Sensorium / Orientation: sedated on vent Charges/Coding Procedures Hospitalists Procedures: 77142 Critial Care 1st Hr
[2021-08-27] MEDS: Ipratropium/Albuterol Sulfate 3 ML AMPUL.NEB INHALATION ×3 (07:26→19:06)
[2021-08-27] MEDS: Losartan Potassium 100 MG Tablet GT (07:53)
[2021-08-27] MEDS: Aspirin 325 MG Tablet GT (07:54)
[2021-08-27] MEDS: Senna/Docusate Sodium 1 Tablet 2 TABLET GT ×2 (07:54→21:04)
[2021-08-27] MEDS: Metoprolol Tartrate 25 MG Tablet GT ×2 (07:54→21:04)
[2021-08-27] MEDS: hydroCHLOROthiazide 25 MG Tablet GT (07:54)
[2021-08-27] MEDS: Juven (unflavored) Packet 1 PACKET GT ×2 (07:54→16:55)
[2021-08-27] MEDS: Enoxaparin 30 MG/0.3 ML Syringe SC (07:55)
[2021-08-27] MEDS: Chlorhexidine 15 ML PO ×2 (07:55→21:04)
[2021-08-27] MEDS: Polyethylene Glycol 3350 17 GM PACKET GT (08:07)
--- NOTE | 2021-08-27 08:23 | RAD_ITS ---
INDICATION: hypoxia EXAMINATION/TECHNIQUE: X-RAY - XR Chest 1 View COMPARISON: 08/26/2021. FINDINGS: LINES/DEVICES: Endotracheal tube is visualized with tip approximately 3 cm above the li. EKG leads are seen superimposed over the chest. LUNGS: Prominence of the bronchovascular interstitial lung markings is visualized bilaterally with bilateral airspace opacification visualized, fluid levels visualized bilaterally but more prominent on the right hemithorax findings demonstrate no significant change in comparison to the prior study. No evidence of pneumothorax or parenchymal lung mass. MEDIASTINUM AND CARDIOVASCULAR STRUCTURES: Cardiac silhouette not enlarged. BONES AND SOFT TISSUES: Degenerative bone changes are seen RAD/Chest 1 View (Portable) IMPRESSION: Bilateral airspace opacification and pleural effusions demonstrates no significant change in comparison to the prior study. Electronically Signed: Zbigniew Carpenter MD at 9:59 EST Tel , Service support ,
[2021-08-27] MEDS: Furosemide 40 MG/4 ML Vial IV ×2 (09:34→16:54)
[2021-08-27] MEDS: Propofol 10MG/Ml 1,000 MG/100 ML Bottle 7.1 MG CONT INF ×2 (09:36→21:30)
[2021-08-27 10:17] LABS: BNP,B-Type NATRIURETIC PEPTIDE 113.4 pg/mL (0-100)
[2021-08-27 10:51] LABS: D-Dimer Quantitative (DVT/PE) 6.44 FEU/ug/m (0.27-0.49)
[2021-08-27] MEDS: Enoxaparin 60 MG/0.6 ML Syringe 50 MG SC (11:35)
[2021-08-27] MEDS: Vital AF 1.2 Cal Liquid 1,000 ML 70 ML GT (13:38)
[2021-08-27] MEDS: Enoxaparin 80 MG/0.8 ML Syringe SC (16:55)
--- NOTE | 2021-08-27 17:52 | PCM.PN.HOSP ---
Subjective Subjective Patient was seen and examined today in ICU, he is currently on 95% oxygen, he is sedated on the ventilator. Objective Data Objective Data Vital Signs: Vital Signs Temp Pulse Resp BP Pulse Ox 99.5 F H 123 H 23 H 121/68 H 91 08/27/21 12:00 08/27/21 17:00 08/27/21 17:00 08/27/21 17:00 08/27/21 17:00 Oxygen Flow Rate (L/min) 60 Oxygen Delivery Method Mechanical Ventilator Weight: 79 kg Body Mass Index (BMI) 30.4 Intake & Output: Intake and Output for Last 24 Hours 08/25/21 08/26/21 08/27/21 23:59 23:59 23:59 Intake Total 3080.87 / 4200.87 4397.23 / 4896.93 3536.55 / 3536.55 Output Total 2300 / 2825 1700 / 2150 2225 / 2225 Balance 780.87 / 1375.87 2697.23 / 2746.93 1311.55 / 1311.55 Medical Nutrition Assessment Dietitian: Malnutrition Criteria Met Start: 08/03/21 13:46 Freq: Status: Active Protocol: Document 08/26/21 09:55 YAEL (Rec: 08/26/21 09:56 SLA [id number]) Nutrition Malnutrition Evidence of Malnutrition Exists Yes Malnutrition (severe): Acute Illness/Injury Evidenced By Suboptimal Energy Intake ( Severe),Weight Loss (Severe) Clinical Problem Acute Disease or Injury Related Malnutrition Etiology severe, acute malnutrition r/t inadequate energy intake d/t COVID-19 illness Signs/Symptoms as evidenced by unintentional wt loss of ~10.9kg/12.1% since adm, estimated PO intake meeting <50% of estimated nutritional needs >1 week 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 Flush amount decreased improved sodium. Lab / Micro Data Result Diagrams: 08/27/21 03:35 08/27/21 03:35 Labs: Laboratory Results - last 24 hr 08/27/21 03:35: WBC 8.9, RBC 3.66 L, Hgb 10.1 L, Hct 32.5 L, MCV 88.8, MCH 27.6, MCHC 31.1 L, RDW Std Deviation 47.4 H, RDW Coeff of Williams 14.9 H, Plt Count 334, MPV 10.9, Neut % (Auto) Not Reportable, Absolute Neuts (auto) 7.0, Absolute Lymphs (auto) 0.89, Neutrophils % (Manual) 76 H, Band Neutrophils % 3, Lymphocytes % (Manual) 10 L, Monocytes % (Manual) 5, Eosinophils % (Manual) 2, Metamyelocytes % 1, Myelocytes % 1 H, Promyelocytes % 2 H, Diff Path Review December, Platelet Estimate ADEQUATE, RBC Morphology NORM C+C, Anisocytosis 1+ 08/27/21 03:35: Sodium 143, Potassium 3.7, Chloride 106, Carbon Dioxide 33.0 H, Anion Gap 4 L, BUN 24 H, Creatinine 0.23 L, Estim Creat Clear Calc 68.40, Est GFR (MDRD) Af Amer 510, Est GFR (MDRD) Non-Af 422, BUN/Creatinine Ratio 102.6 H, Glucose 121 H, Calcium 8.3 L 08/27/21 03:35: B-Natriuretic Peptide 113.4 H 08/27/21 03:35: B-Natriuretic Peptide Cancelled 08/27/21 10:05: D-Dimer Quant (PE/DVT) 6.44 H* Micro: Microbiology 08/15/21 10:30 Interface Orders Gram Stain - Final 08/15/21 10:30 Interface Orders Respiratory Culture - Final Stenotrophomonas maltophilia 08/10/21 15:30 Sputum, Induced/Lukens Gram Stain - Final 08/10/21 15:30 Sputum, Induced/Lukens Respiratory Culture - Final Klebsiella pneumoniae sp pneum 08/03/21 18:00 Blood Culture (Wb) - Anticubital Left Blood Culture - Final No growth in 5 days. 08/03/21 20:20 Blood Culture (Wb) - Right Hand Blood Culture - Final No growth in 5 days. 08/03/21 01:00 Sputum, Expectorated/Coughed Gram Stain - Final 08/03/21 01:00 Sputum, Expectorated/Coughed Respiratory Culture - Final Mixed normal respiratory christina. No Streptococcus pneumoniae, beta-hemolytic Streptococcus or Staphylococcus aureus isolated. 08/03/21 13:33 Urine, Clean Catch Legionella Antigen - Final 08/03/21 13:33 Urine, Clean Catch Streptococcus pneumoniae Antigen (M - Final ABG Data ABG results: ABG 08/26/21 19:15 Specimen Type ART Sample Site L Radial pH 7.42 Bicarbonate Actual 31.9 H Total CO2 34 Base Excess 8 H O2 Saturation 88 L O2 % 90 ABG pCO2 49.3 H ABG pO2 55 L Raul Test Positive Respiration Rate 14 O2 Delivery Device Adult Vent Vent Mode AC Tidal Volume 450 POC PEEP 10 Radiography Diagnostic Testing: Radiology Impression Chest X-Ray 08/26/21 18:40 IMPRESSION: Progression/worsening of diffuse interstitial and airspace opacifications in both lung robles since the previous study. Stable appearance of the NG tube Electronically Signed: Cl Conroy MD at 21:00 EST , Service support , Chest X-Ray 08/27/21 08:23 IMPRESSION: Bilateral airspace opacification and pleural effusions demonstrates no significant change in comparison to the prior study. Electronically Signed: Zbigniew Carpenter MD at 9:59 EST Tel , Service support , Physical Exam Const Constitutional Narrative: Patient is sedated and on the ventilator General Appearance: cooperative, well kempt and well developed Orientation / Consciousness: awake, oriented to person, oriented to place and oriented to time HEENT normocephalic and head/scalp atraumatic Head and Scalp: normocephalic Eyes PERRL, EOMs intact bilaterally and conjunctivae normal Neck nuchal rigidity, supple, no JVD, thyroid normal and no carotid bruits General: trachea midline Resp normal respiratory effort, no retractions, no use of accessory muscles and clear to auscultation bilaterally Auscultation: Negative for rales, rhonchi or wheezes Cardio regular rate, regular rhythm, S1 normal heart sound, S2 normal heart sound, no murmurs, no rub and no gallops GI normal to inspection, nondistended, normoactive bowel sounds, soft to palpation, non-tender and non-distended Extremity no clubbing, cyanosis or edema Skin no rashes or lesions noted General Skin Exam: no breakdown Neuro Neuro Narrative: Patient is sedated and on the ventilator Psych thought process normal Psych Narrative: Patient is sedated and on the ventilator Assessment & Plan Assessment/Plan (1) Pneumonia due to COVID-19 virus: PLAN: 1. COVID-19 pneumonia-patient is completed remdesivir, Decadron and is currently on baricitinib. #2 acute hypoxic respiratory failure secondary to #1-patient is currently on 95% O2, outlook is very uncertain at this time #3 essential hypertension #4 severe protein and caloric acute malnutrition secondary to inadequate energy intake due to COVID-19 pneumonia as evidenced by unintentional weight loss of approximately 15 kg / 16% since onset of acute illness. Patient is n.p.o. due to mechanical intubation, patient currently has PEG tube, patient is being seen by nutritional services #5 cerebrovascular disease Charges/Coding Visit Charges Inpatient E&M: 45627 Subs Hosp L2
[2021-08-27] MEDS: 0.9% Saline Lock 10 ML Syringe IV (21:05)
[2021-08-28] VITALS (37 sets, daily range): BP systolic 94–132; BP diastolic 49–72; PULSE 99–134; RESP 18–31; TEMP 36.9–37.7; O2SAT 88–97
[2021-08-28] MEDS: guaiFENesin 10 ML UDC (200MG/10ML) 20 ML GT ×4 (00:41→17:02)
[2021-08-28] MEDS: Glycerin/Hypromellose/PEG400 15 ml Bottle 1 DRP EACH EYE ×6 (03:27→21:06)
[2021-08-28 03:44] LABS: Hematocrit 33.7 % (40-54); Hemoglobin 10.6 g/dL (13.0-16.5); Mean Corp Hgb Conc 31.5 g/dL (32-36); Mean Corpuscular Hgb 27.9 pg (27.0-32.0); Mean Corpuscular Volume 88.7 fL (80-94); Mean Platelet Vol. 11.1 fl (6.2-12.0); POSITIVE COUNT YES; POSITIVE MORPHOLOGY YES; Platelet Count 330 K/mm3 (150-450); RBC Distribution Width CV 15.1 % (11.6-14.6); RBC Distribution Width SD 47.6 fl (35.1-43.9); White Blood Count 9.7 K/mm3 (4.4-11.0)
[2021-08-28 03:48] LABS: Differential Indicated MANUAL DIFF
[2021-08-28 03:58] LABS: ALB/GLOB Ratio 0.2 RATIO (0.9-2.4); AST(SGOT) 42 U/L (15-37); Alanine Aminotransfer ALT/SGPT 65 U/L (16-61); Albumin, Serum 1.3 g/dL (3.2-5.0); Alkaline Phosphatase 71 U/L (45-117); Anion Gap 5 (5-15); BUN 26 mg/dL (7-18); BUN/Creat Ratio 103.2 RATIO (10-20); Calcium,Total 8.4 mg/dL (8.5-10.1); Chloride 103 mmol/L (98-107); Creatinine, Serum 0.25 mg/dL (0.70-1.30); EST Glomerular Filtration Rate 387 mL/min (>60); Est Glom Filt Rate - Afr Amer 469 mL/min (>60); Globulin 5.3 g/dL (2.2-4.2); Glucose 126 mg/dL (74-106); Potassium 3.6 mmol/L (3.5-5.1); Protein, Total 6.6 g/dL (6.4-8.2); Sodium Level 143 mmol/L (136-145)
[2021-08-28 04:10] LABS: Absolute Lymphocyte Count 1.07 X10^3/uL (0.83-4.51); Absolute Neutrophil Count 7.6 X10^3/uL (2.0-7.7); Total Cells Counted 100 (MANUAL DIFF)
[2021-08-28 04:11] LABS: Anisocytosis 1+; Atypical Lymphocyte 2+ %; Eosinophil 1 % (0-5); Lymphocyte 11 % (19-41); Monocyte 6 % (0-10); Myelocyte 1 % (0-0); Neutrophil-Segmented 78 % (47-70); Platelet Estimate ADEQUATE (ADEQ); Promyelocyte 3 % (0-0); Red Cell Morphology NORM C+C NORMAL (NORM C&C)
[2021-08-28] MEDS: TITRATION PARAMETER CHANGE 1 EACH IV (04:25)
[2021-08-28] MEDS: CHLORHEXIDINE GLUC 2% CLOTH 1 EACH TOWELETTE TOPICAL (04:25)
[2021-08-28] MEDS: Vital AF 1.2 Cal Liquid 1,000 ML 70 ML GT ×2 (04:49→19:58)
[2021-08-28] MEDS: Menthol/Lanolin/Calamine/Znox 113 GM Tube 1 APPLIC TOPICAL ×3 (06:01→21:06)
[2021-08-28] MEDS: Enoxaparin 80 MG/0.8 ML Syringe SC ×2 (06:02→17:06)
--- NOTE | 2021-08-28 06:28 | PN.CC_ITS ---
Assessment & Plan Assessment/Plan (1) Acute respiratory failure with hypoxia: (2) Pneumonia due to COVID-19 virus: PLAN: RECOMMENDATIONS: 1. Continue to wean FiO2 to maintain oxygen saturations at or above 90%. 2. Continue therapeutic Lovenox. 3. Start patient on a continuous Lasix infusion today. 4. Continue appropriate GI prophylaxis. 5. Continue tube feeds as tolerated. 6. Ongoing goals of care discussion with the patient's . IMPRESSIONS: 1. Acute hypoxemic respiratory failure secondary to COVID-19 pneumonia The patient initially presented to the hospital with worsening shortness of breath and hypoxemia. The patient has completed treatment courses of remdesivir, decadron and partial course of baricitinib. Ultimately, the patient continued to decompensate from a respiratory perspective and had to be intubated on August 10. Sputum culture was positive for Klebsiella and stenotrophomonas, for which the patient completed an antibiotic treatment course. Plan to continue to wean FiO2 and PEEP as tolerated for saturations greater than 90%. Despite all of the aforementioned, the patient's respiratory status remains quite tenuous. Although there were tentative plans for tracheostomy, the patient is too unstable from a respiratory perspective to proceed at the current time. Will attempt to aggressively diurese the patient. Plan to continue therapeutic Lovenox given elevated D-dimer. 2. Obesity/hypertension/self-reported asthma/prior CVA Complicates care, management, recovery and prognosis. Continue home medications as indicated. Continue nutritional support via tube feeds and physical therapy as tolerated. TIME: 34 minutes of critical care time, independent of procedures, was spent addressing the patient's acute hypoxemic respiratory failure secondary to COVID- 19 pneumonia, secondary bacterial pneumonia, review of all data and collab oration with the care team. Subjective Subjective The patient was seen and examined at the bedside this morning. Events from the last 24 hours have been reviewed. The patient continues to have a low-grade fever with increasing tachycardia noted this morning. He remains otherwise hemodynamically stable. The patient remains on assist control mode of mechanical ventilation with an FiO2 requirement of 95% and PEEP of 12. He remains sedated on fentanyl and propofol. He is currently tolerating tube feeds. Despite diuresis, the patient was still overall net positive yesterday. The patient is now documented to be overall net +13 L for the hospitalization. D-dimer yesterday was elevated at 6.4. Therefore, the patient was placed empirically on therapeutic anticoagulation. Creatinine is stable this morning. Objective Data Objective Data The patient's most recent lab work, culture data and imaging studies have all been personally reviewed. Sputum culture dated August 10 was positive for Klebsiella pneumoniae. Repeat sputum culture from August 15 grew stenotrophomonas. Vital Signs: Vital Signs Temp Pulse Resp BP Pulse Ox 99.8 F H 134 H 25 H 114/61 88 08/28/21 05:00 08/28/21 05:31 08/28/21 05:31 08/28/21 05:00 08/28/21 05:31 Oxygen Flow Rate (L/min) 60 Oxygen Delivery Method Mechanical Ventilator Weight: 78.8 kg Body Mass Index (BMI) 30.4 Intake & Output: Intake and Output for Last 24 Hours 08/26/21 08/27/21 08/28/21 23:59 23:59 23:59 Intake Total 4397.23 / 4896.93 4447.99 / 4984.59 1102.1 / 1102.1 Output Total 1700 / 2150 2975 / 3225 650 / 650 Balance 2697.23 / 2746.93 1472.99 / 1759.59 452.1 / 452.1 Medical Nutrition Assessment Dietitian: Malnutrition Criteria Met Start: 08/03/21 13:46 Freq: Status: Active Protocol: Document 08/26/21 09:55 YAEL (Rec: 08/26/21 09:56 [facility] [id number]) Nutrition Malnutrition Evidence of Malnutrition Exists Yes Malnutrition (severe): Acute Illness/Injury Evidenced By Suboptimal Energy Intake ( Severe),Weight Loss (Severe) Clinical Problem Acute Disease or Injury Related Malnutrition Etiology severe, acute malnutrition r/t inadequate energy intake d/t COVID-19 illness Signs/Symptoms as evidenced by unintentional wt loss of ~10.9kg/12.1% since adm, estimated PO intake meeting <50% of estimated nutritional needs >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 Flush amount decreased improved sodium. Lab / Micro Data Attestation: I reviewed the patient's lab results. Result Diagrams: 08/28/21 03:35 08/28/21 03:35 Labs: Laboratory Results - last 24 hr 08/27/21 03:35: B-Natriuretic Peptide 113.4 H 08/27/21 03:35: B-Natriuretic Peptide Cancelled 08/27/21 10:05: D-Dimer Quant (PE/DVT) 6.44 H* 08/28/21 03:35: WBC 9.7, RBC 3.80 L, Hgb 10.6 L, Hct 33.7 L, MCV 88.7, MCH 27.9, MCHC 31.5 L, RDW Std Deviation 47.6 H, RDW Coeff of Williams 15.1 H, Plt Count 330, MPV 11.1, Neut % (Auto) Not Reportable, Absolute Neuts (auto) 7.6, Absolute Lymphs (auto) 1.07, Total Counted 100, Neutrophils % (Manual) 78 H, Lymphocytes % (Manual) 11 L, Monocytes % (Manual) 6, Eosinophils % (Manual) 1, Myelocytes % 1 H, Promyelocytes % 3 H, Diff Path Review May foll, Atypical Lymphocytes 2+, Platelet Estimate ADEQUATE, RBC Morphology NORM C+C, Anisocytosis 1+ 08/28/21 03:35: Sodium 143, Potassium 3.6, Chloride 103, Carbon Dioxide 35.0 H, Anion Gap 5, BUN 26 H, Creatinine 0.25 L, Estim Creat Clear Calc 68.40, Est GFR (MDRD) Af Amer 469, Est GFR (MDRD) Non-Af 387, BUN/Creatinine Ratio 103.2 H, Glucose 126 H, Calcium 8.4 L, Total Bilirubin 0.30, AST 42 H, ALT 65 H, Alkaline Phosphatase 71, Total Protein 6.6, Albumin 1.3 L, Globulin 5.3 H, Albumin/Globulin Ratio 0.2 L Micro: Microbiology 08/15/21 10:30 Interface Orders Gram Stain - Final 08/15/21 10:30 Interface Orders Respiratory Culture - Final Stenotrophomonas maltophilia 08/10/21 15:30 Sputum, Induced/Lukens Gram Stain - Final 08/10/21 15:30 Sputum, Induced/Lukens Respiratory Culture - Final Klebsiella pneumoniae sp pneum 08/03/21 18:00 Blood Culture (Wb) - Anticubital Left Blood Culture - Final No growth in 5 days. 08/03/21 20:20 Blood Culture (Wb) - Right Hand Blood Culture - Final No growth in 5 days. 08/03/21 01:00 Sputum, Expectorated/Coughed Gram Stain - Final 08/03/21 01:00 Sputum, Expectorated/Coughed Respiratory Culture - Final Mixed normal respiratory christina. No Streptococcus pneumoniae, beta-hemolytic Streptococcus or Staphylococcus aureus isolated. 08/03/21 13:33 Urine, Clean Catch Legionella Antigen - Final 08/03/21 13:33 Urine, Clean Catch Streptococcus pneumoniae Antigen (M - Final Radiography Diagnostic Testing: Radiology Impression Chest X-Ray 08/27/21 08:23 IMPRESSION: Bilateral airspace opacification and pleural effusions demonstrates no significant change in comparison to the prior study. Electronically Signed: Zbigniew Carpenter MD at 9:59 EST Tel , Service support , Physical Exam Const no apparent distress General Appearance: intubated and patient mechanically ventilated HEENT normocephalic and head/scalp atraumatic Mouth: endotracheal tube in place and OG tube in place Eyes PERRL and EOMs intact bilaterally Neck supple General: trachea midline Resp Effort and Inspection: tachypneic Auscultation: rhonchi and diminished lung sounds; Negative for rales or wheezes Cardio S1 normal heart sound and S2 normal heart sound Rate: tachycardic GI normal to inspection, nondistended, normoactive bowel sounds Inspection: GI tube present Extremity no clubbing, cyanosis or edema Skin no rashes or lesions noted Neuro Sensorium / Orientation: sedated on vent Charges/Coding Procedures Hospitalists Procedures: 92335 Critial Care 1st Hr
[2021-08-28] MEDS: Furosemide 500 MG in Empty Viaflex 50 mL 1 EACH CONT INF ×2 (07:03→23:48)
[2021-08-28] MEDS: Juven (unflavored) Packet 1 PACKET GT ×2 (08:00→17:06)
[2021-08-28] MEDS: Propofol 10MG/Ml 1,000 MG/100 ML Bottle 7.1 MG CONT INF ×2 (08:00→20:00)
[2021-08-28] MEDS: Aspirin 325 MG Tablet GT (08:02)
[2021-08-28] MEDS: hydroCHLOROthiazide 25 MG Tablet GT (08:02)
[2021-08-28] MEDS: Senna/Docusate Sodium 1 Tablet 2 TABLET GT ×2 (08:02→21:05)
[2021-08-28] MEDS: Metoprolol Tartrate 25 MG Tablet GT ×2 (08:02→21:05)
[2021-08-28] MEDS: Losartan Potassium 100 MG Tablet GT (08:02)
[2021-08-28] MEDS: Chlorhexidine 15 ML PO ×2 (08:02→21:06)
[2021-08-28 10:39] LABS: Pathologist Review Reviewed
[2021-08-28 10:40] LABS: Pathologist Review Reviewed
--- NOTE | 2021-08-28 11:36 | CASEMGMT ---
Addendum entered by Wanda Maurer 08/28/21 14:34: Received call back from Ryne at [facility] and they are reviewing referral and should be able to accept the patient if they have a bed available. CM will continue to follow this patient and send additional information when available. Addendum entered by Wanda Maurer 08/28/21 11:54: [facility] [place] P: [phone] F: [phone] Original Note: RN CM in to discuss LTACH choices with . states that she would like patient to go to [facility]. TYLER CM called and sent referral to [facility] [place]. CM will continue to follow this patient and plan for a safe discharge.
--- NOTE | 2021-08-28 11:41 | WOUNDNOTE ---
wound photo: sacrum
[2021-08-28] MEDS: Ipratropium/Albuterol Sulfate 3 ML AMPUL.NEB INHALATION ×2 (13:42→18:53)
[2021-08-28] MEDS: 0.9% Saline Lock 10 ML Syringe IV (17:03)
--- NOTE | 2021-08-28 17:22 | PN.HOSP_ITS ---
Subjective Subjective Patient was seen and examined today in ICU, he remains sedated on the ventilator, he is currently on 85% oxygen. Objective Data Objective Data Vital Signs: Vital Signs Temp Pulse Resp BP Pulse Ox 99.2 F H 116 H 22 H 94/49 L 91 08/28/21 16:00 08/28/21 17:00 08/28/21 17:00 08/28/21 17:00 08/28/21 17:00 Oxygen Flow Rate (L/min) 60 Oxygen Delivery Method Mechanical Ventilator Weight: 78.8 kg Body Mass Index (BMI) 30.4 Intake & Output: Intake and Output for Last 24 Hours 08/26/21 08/27/21 08/28/21 23:59 23:59 23:59 Intake Total 4397.23 / 4896.93 4447.99 / 4984.59 3037.03 / 3037.03 Output Total 1700 / 2150 2975 / 3225 3260 / 3260 Balance 2697.23 / 2746.93 1472.99 / 1759.59 -222.97 / -222.97 Medical Nutrition Assessment Dietitian: Malnutrition Criteria Met Start: 08/03/21 13:46 Freq: Status: Active Protocol: Document 08/26/21 09:55 YAEL (Rec: 08/26/21 09:56 SLA [id number]) Nutrition Malnutrition Evidence of Malnutrition Exists Yes Malnutrition (severe): Acute Illness/Injury Evidenced By Suboptimal Energy Intake ( Severe),Weight Loss (Severe) Clinical Problem Acute Disease or Injury Related Malnutrition Etiology severe, acute malnutrition r/t inadequate energy intake d/t COVID-19 illness Signs/Symptoms as evidenced by unintentional wt loss of ~10.9kg/12.1% since adm, estimated PO intake meeting <50% of estimated nutritional needs >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 Flush amount decreased improved sodium. Lab / Micro Data Result Diagrams: 08/28/21 03:35 08/28/21 03:35 Labs: Laboratory Results - last 24 hr 08/26/21 04:30: Diff Path Review Reviewed 08/27/21 03:35: Diff Path Review Reviewed 08/28/21 03:35: WBC 9.7, RBC 3.80 L, Hgb 10.6 L, Hct 33.7 L, MCV 88.7, MCH 27.9, MCHC 31.5 L, RDW Std Deviation 47.6 H, RDW Coeff of Williams 15.1 H, Plt Count 330, MPV 11.1, Neut % (Auto) Not Reportable, Absolute Neuts (auto) 7.6, Absolute Lym phs (auto) 1.07, Total Counted 100, Neutrophils % (Manual) 78 H, Lymphocytes % (Manual) 11 L, Monocytes % (Manual) 6, Eosinophils % (Manual) 1, Myelocytes % 1 H, Promyelocytes % 3 H, Diff Path Review May foll, Atypical Lymphocytes 2+, Platelet Estimate ADEQUATE, RBC Morphology NORM C+C, Anisocytosis 1+ 08/28/21 03:35: Sodium 143, Potassium 3.6, Chloride 103, Carbon Dioxide 35.0 H, Anion Gap 5, BUN 26 H, Creatinine 0.25 L, Estim Creat Clear Calc 68.40, Est GFR (MDRD) Af Amer 469, Est GFR (MDRD) Non-Af 387, BUN/Creatinine Ratio 103.2 H, Glucose 126 H, Calcium 8.4 L, Total Bilirubin 0.30, AST 42 H, ALT 65 H, Alkaline Phosphatase 71, Total Protein 6.6, Albumin 1.3 L, Globulin 5.3 H, Albumin/Globulin Ratio 0.2 L Micro: Microbiology 08/15/21 10:30 Interface Orders Gram Stain - Final 08/15/21 10:30 Interface Orders Respiratory Culture - Final Stenotrophomonas maltophilia 08/10/21 15:30 Sputum, Induced/Lukens Gram Stain - Final 08/10/21 15:30 Sputum, Induced/Lukens Respiratory Culture - Final Klebsiella pneumoniae sp pneum 08/03/21 18:00 Blood Culture (Wb) - Anticubital Left Blood Culture - Final No growth in 5 days. 08/03/21 20:20 Blood Culture (Wb) - Right Hand Blood Culture - Final No growth in 5 days. 08/03/21 01:00 Sputum, Expectorated/Coughed Gram Stain - Final 08/03/21 01:00 Sputum, Expectorated/Coughed Respiratory Culture - Final Mixed normal respiratory christina. No Streptococcus pneumoniae, beta-hemolytic Streptococcus or Staphylococcus aureus isolated. 08/03/21 13:33 Urine, Clean Catch Legionella Antigen - Final 08/03/21 13:33 Urine, Clean Catch Streptococcus pneumoniae Antigen (M - Final Physical Exam Narrative Constitutional Narrative: Patient is sedated and on the ventilator General Appearance: cooperative, well kempt and well developed Orientation / Consciousness: awake, oriented to person, oriented to place and oriented to time HEENT normocephalic and head/scalp atraumatic Head and Scalp: normocephalic Eyes Conjunctive normal Neck no JVD, thyroid normal General: trachea midline Resp normal respiratory effort, no retractions, no use of accessory muscles and clear to auscultation bilaterally Auscultation: Negative for rales, rhonchi or wheezes Cardio regular rate, regular rhythm, S1 normal heart sound, S2 normal heart sound, no murmurs, no rub and no gallops GI normal to inspection, nondistended, normoactive bowel sounds, non-distended Extremity no clubbing, cyanosis or edema Skin no rashes or lesions noted General Skin Exam: no breakdown Neuro Neuro Narrative: Patient is sedated and on the ventilator Psych thought process normal Psych Narrative: Patient is sedated and on the ventilator Assessment & Plan Assessment/Plan (1) Pneumonia due to COVID-19 virus: PLAN: 1. COVID-19 pneumonia-patient is completed remdesivir, Decadron, and is currently on baricitinib. #2 acute hypoxic respiratory failure secondary to #1-patient is currently on 85% O2, outlook is very uncertain at this time #3 essential hypertension-patient is currently on metoprolol, losartan, hydrochlorothiazide, and labetalol as needed #4 severe protein and caloric acute malnutrition secondary to inadequate energy intake due to COVID-19 pneumonia as evidenced by unintentional weight loss of approximately 15 kg / 16% since onset of acute illness. Patient is n.p.o. due to mechanical intubation, patient currently has PEG tube, patient is being seen by nutritional services #5 cerebrovascular disease- patient is receiving aspirin 325 mg daily Charges/Coding Visit Charges Inpatient E&M: 53817 Subs Hosp L2
[2021-08-28 17:44] LABS: Anion Gap 5 (5-15); BUN 33 mg/dL (7-18); BUN/Creat Ratio 87.3 RATIO (10-20); Calcium,Total 8.6 mg/dL (8.5-10.1); Chloride 99 mmol/L (98-107); Creatinine, Serum 0.38 mg/dL (0.70-1.30); EST Glomerular Filtration Rate 243 mL/min (>60); Est Glom Filt Rate - Afr Amer 294 mL/min (>60); Glucose 137 mg/dL (74-106); Potassium 2.9 mmol/L (3.5-5.1); Sodium Level 141 mmol/L (136-145)
[2021-08-28] MEDS: Potassium Chloride 10mEq/100mL 10 MEQ/100 ML IV.SOLN. 100 MEQ IV BOLUS ×4 (18:57→22:00)
[2021-08-28] MEDS: Potassium Chloride Oral Soln 20 MEQ/15 ML UDC 40 MEQ GT (18:57)
[2021-08-29] VITALS (36 sets, daily range): BP systolic 105–136; BP diastolic 61–77; PULSE 106–132; RESP 19–27; TEMP 36.9–37.9; O2SAT 91–94
[2021-08-29] MEDS: guaiFENesin 10 ML UDC (200MG/10ML) 20 ML GT ×4 (00:22→17:27)
[2021-08-29] MEDS: Glycerin/Hypromellose/PEG400 15 ml Bottle 1 DRP EACH EYE ×5 (03:04→21:21)
[2021-08-29 03:48] LABS: Absolute Lymphocyte Count 0.73 X10^3/uL (0.83-4.51); Basophil# 0.05 X10^3/uL; Basophil% 0.4 % (0-1); Eosinophil# 0.26 X10^3/uL; Eosinophils% 2.3 % (0-5); Hematocrit 35.6 % (40-54); Hemoglobin 11.3 g/dL (13.0-16.5); Lymphocyte # 0.73 X10^3/ul (0.83-4.51); Lymphocyte % 6.3 % (19-41); Mean Corp Hgb Conc 31.7 g/dL (32-36); Mean Corpuscular Volume 88.3 fL (80-94); Mean Platelet Vol. 9.8 fl (6.2-12.0); Monocyte# 0.97 X10^3/uL; Monocyte% 8.4 % (0-10); NRBC Flagged by Analyzer 0 % (0-5); Neutrophil % 78.1 % (47-70); Platelet Count 393 K/mm3 (150-450); RBC Distribution Width CV 15.1 % (11.6-14.6); RBC Distribution Width SD 48.4 fl (35.1-43.9); Red Blood Count 4.03 M/mm3 (4.6-6.2); White Blood Count 11.5 K/mm3 (4.4-11.0)
[2021-08-29 04:06] LABS: Anion Gap 6 (5-15); BUN 33 mg/dL (7-18); BUN/Creat Ratio 89.2 RATIO (10-20); Calcium,Total 8.5 mg/dL (8.5-10.1); Chloride 97 mmol/L (98-107); Creatinine, Serum 0.37 mg/dL (0.70-1.30); EST Glomerular Filtration Rate 249 mL/min (>60); Est Glom Filt Rate - Afr Amer 301 mL/min (>60); Glucose 134 mg/dL (74-106); Sodium Level 143 mmol/L (136-145)
--- NOTE | 2021-08-29 05:37 | PN.CC_ITS ---
Assessment & Plan Assessment/Plan (1) Acute respiratory failure with hypoxia: (2) Pneumonia due to COVID-19 virus: PLAN: RECOMMENDATIONS: 1. Continue to wean FiO2 to maintain oxygen saturations at or above 90%. 2. Continue therapeutic Lovenox. 3. Continue Lasix infusion, as tolerated by hemodynamics and renal function. 4. Aggressive potassium repletion. 5. Obtain arterial blood gas. 6. Continue appropriate GI prophylaxis. 7. Continue tube feeds as tolerated. 8. Ongoing goals of care discussion with the patient's . IMPRESSIONS: 1. Acute hypoxemic respiratory failure secondary to COVID-19 pneumonia The patient initially presented to the hospital with worsening shortness of breath and hypoxemia. The patient has completed treatment courses of remdesivir, decadron and partial course of baricitinib. Ultimately, the patient continued to decompensate from a respiratory perspective and had to be intubated on August 10. Sputum culture was positive for Klebsiella and stenotrophomonas, for which the patient completed an antibiotic treatment course. Plan to continue to wean FiO2 and PEEP as tolerated for saturations greater than 90%. Despite all of the aforementioned, the patient's respiratory status remains quite tenuous. Although there were tentative plans for tracheostomy, the patient is too unstable from a respiratory perspective to proceed at the current time. Will attempt to aggressively diurese the patient. Plan to continue therapeutic Lovenox given elevated D-dimer. 2. Hypokalemia Aggressive electrolyte repletion as ordered. Continue to monitor on a daily basis. 3. Obesity/hypertension/self-reported asthma/prior CVA Complicates care, management, recovery and prognosis. Continue home medications as indicated. Continue nutritional support via tube feeds and physical therapy as tolerated. TIME: 32 minutes of critical care time, independent of procedures, was spent addressing the patient's acute hypoxemic respiratory failure secondary to COVID- 19 pneumonia, secondary bacterial pneumonia, review of all data and collaboration with the care team. Subjective Subjective The patient was seen and examined at the bedside this morning. Events from the last 24 hours have been reviewed. The patient's overall fever curve has impro kalani. He remains hemodynamically stable. The patient remains on assist control mode of mechanical ventilation with an FiO2 requirement of 80% and PEEP of 12. The patient has been on a continuous Lasix infusion since yesterday. He remains sedated on propofol and fentanyl. He continues to tolerate tube feeds. The patient is now documented to be overall net +11.5 L for the hospitalization. Potassium is low this morning at 3.0. Creatinine is stable. Objective Data Objective Data The patient's most recent lab work, culture data and imaging studies have all been personally reviewed. Sputum culture dated August 10 was positive for Klebsiella pneumoniae. Repeat sputum culture from August 15 grew stenotrophomonas. Vital Signs: Vital Signs Temp Pulse Resp BP Pulse Ox 99 F 122 H 21 H 131/71 H 91 08/29/21 05:00 08/29/21 05:00 08/29/21 05:00 08/29/21 05:00 08/29/21 05:00 Oxygen Flow Rate (L/min) 60 Oxygen Delivery Method Mechanical Ventilator Weight: 77.2 kg Body Mass Index (BMI) 30.4 Intake & Output: Intake and Output for Last 24 Hours 08/27/21 08/28/21 08/29/21 23:59 23:59 23:59 Intake Total 4447.99 / 4984.59 3805.11 / 4436.71 839.4 / 839.4 Output Total 2975 / 3225 4425 / 4950 1300 / 1300 Balance 1472.99 / 1759.59 -619.89 / -513.29 -460.6 / -460.6 Medical Nutrition Assessment Dietitian: Malnutrition Criteria Met Start: 08/03/21 13:46 Freq: Status: Active Protocol: Document 08/26/21 09:55 [facility] (Rec: 08/26/21 09:56 [facility] [id number]) Nutrition Malnutrition Evidence of Malnutrition Exists Yes Malnutrition (severe): Acute Illness/Injury Evidenced By Suboptimal Energy Intake ( Severe),Weight Loss (Severe) Clinical Problem Acute Disease or Injury Related Malnutrition Etiology severe, acute malnutrition r/t inadequate energy intake d/t COVID-19 illness Signs/Symptoms as evidenced by unintentional wt loss of ~10.9kg/12.1% since adm, estimated PO intake meeting <50% of estimated nutritional needs >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 Flush amount decreased improved sodium. Lab / Micro Data Attestation: I reviewed the patient's lab results. Result Diagrams: 08/29/21 03:35 08/29/21 03:35 Labs: Laboratory Results - last 24 hr 08/26/21 04:30: Diff Path Review Reviewed 08/27/21 03:35: Diff Path Review Reviewed 08/28/21 17:15: Sodium 141, Potassium 2.9 L, Chloride 99, Carbon Dioxide 37.0 H, Anion Gap 5, BUN 33 H, Creatinine 0.38 L, Estim Creat Clear Calc 68.40, Est GFR (MDRD) Af Amer 294, Est GFR (MDRD) Non-Af 243, BUN/Creatinine Ratio 87.3 H, Glucose 137 H, Calcium 8.6 08/29/21 03:35: Sodium 143, Potassium 3.0 L, Chloride 97 L, Carbon Dioxide 40.0 H, Anion Gap 6, BUN 33 H, Creatinine 0.37 L, Estim Creat Clear Calc 68.40, Est GFR (MDRD) Af Amer 301, Est GFR (MDRD) Non-Af 249, BUN/Creatinine Ratio 89.2 H, Glucose 134 H, Calcium 8.5 08/29/21 03:35: WBC 11.5 H, RBC 4.03 L, Hgb 11.3 L, Hct 35.6 L, MCV 88.3, MCH 28.0, MCHC 31.7 L, RDW Std Deviation 48.4 H, RDW Coeff of Williams 15.1 H, Plt Count 393, MPV 9.8, Immature Gran % (Auto) 4.500 H, Neut % (Auto) 78.1 H, Lymph % (Auto) 6.3 L, [place] % (Auto) 8.4, Eos % (Auto) 2.3, Baso % (Auto) 0.4, Absolute Neuts (auto) 9.0 H, Absolute Lymphs (auto) 0.73 L, Nucleated RBC % 0 Micro: Microbiology 08/15/21 10:30 Interface Orders Gram Stain - Final 08/15/21 10:30 Interface Orders Respiratory Culture - Final Stenotrophomonas maltophilia 08/10/21 15:30 Sputum, Induced/Lukens Gram Stain - Final 08/10/21 15:30 Sputum, Induced/Lukens Respiratory Culture - Final Klebsiella pneumoniae sp pneum 08/03/21 18:00 Blood Culture (Wb) - Anticubital Left Blood Culture - Final No growth in 5 days. 08/03/21 20:20 Blood Culture (Wb) - Right Hand Blood Culture - Final No growth in 5 days. 08/03/21 01:00 Sputum, Expectorated/Coughed Gram Stain - Final 08/03/21 01:00 Sputum, Expectorated/Coughed Respiratory Culture - Final Mixed normal respiratory christina. No Streptococcus pneumoniae, beta-hemolytic Streptococcus or Staphylococcus aureus isolated. 08/03/21 13:33 Urine, Clean Catch Legionella Antigen - Final 08/03/21 13:33 Urine, Clean Catch Streptococcus pneumoniae Antigen (M - Final Physical Exam Const no apparent distress General Appearance: intubated and patient mechanically ventilated HEENT normocephalic and head/scalp atraumatic Mouth: endotracheal tube in place and OG tube in place Eyes PERRL and EOMs intact bilaterally Neck supple General: trachea midline Resp Resp Narrative: Scant rhonchi. Effort and Inspection: tachypneic Auscultation: diminished lung sounds; Negative for rales or wheezes Cardio S1 normal heart sound and S2 normal heart sound Rate: tachycardic GI normal to inspection, nondistended, normoactive bowel sounds Inspection: GI tube present Extremity no clubbing, cyanosis or edema Skin no rashes or lesions noted Neuro Sensorium / Orientation: sedated on vent Charges/Coding Procedures Hospitalists Procedures: 24087 Critial Care 1st Hr
[2021-08-29] MEDS: Menthol/Lanolin/Calamine/Znox 113 GM Tube 1 APPLIC TOPICAL ×3 (05:52→21:22)
[2021-08-29] MEDS: Propofol 10MG/Ml 1,000 MG/100 ML Bottle 6.9 MG CONT INF ×3 (05:52→21:41)
[2021-08-29] MEDS: TITRATION PARAMETER CHANGE 1 EACH IV (05:52)
[2021-08-29] MEDS: Enoxaparin 80 MG/0.8 ML Syringe SC ×2 (05:53→17:26)
[2021-08-29] MEDS: Ipratropium/Albuterol Sulfate 3 ML AMPUL.NEB INHALATION ×3 (07:11→19:12)
[2021-08-29] MEDS: Potassium Chloride 10mEq/100mL 10 MEQ/100 ML IV.SOLN. 100 MEQ IV BOLUS ×8 (07:59→20:08)
[2021-08-29 08:15] LABS: Allen Test Positive; Base Excess 19 mmol/L (-2 to +2); Bicarbonate 42.1 mmol/L (22-26); Blood Gas Specimen Type ART; FI02 80; Mode AC; O2 Delivery Device Adult Vent; PEEP 12; PO2 64 mmHG (75-100); SITE L Radial; SO2 93 % (95-99); Total Carbon Dioxide 44 mmol/L; Vt 450; pCO2 54.9 mmHg (35-45); pH 7.49 (7.35-7.45)
[2021-08-29] MEDS: Juven (unflavored) Packet 1 PACKET GT ×2 (08:17→16:54)
[2021-08-29] MEDS: Potassium Chloride Oral Soln 20 MEQ/15 ML UDC 40 MEQ PO (08:17)
[2021-08-29] MEDS: Vital AF 1.2 Cal Liquid 1,000 ML 70 ML GT (10:09)
[2021-08-29] MEDS: CHLORHEXIDINE GLUC 2% CLOTH 1 EACH TOWELETTE TOPICAL (10:10)
[2021-08-29] MEDS: Chlorhexidine 15 ML PO ×2 (10:10→21:26)
[2021-08-29 10:14] LABS: Pathologist Review Reviewed
[2021-08-29] MEDS: hydroCHLOROthiazide 25 MG Tablet GT (10:58)
[2021-08-29] MEDS: Aspirin 325 MG Tablet GT (10:58)
[2021-08-29] MEDS: Metoprolol Tartrate 25 MG Tablet GT ×2 (10:58→21:19)
[2021-08-29] MEDS: Senna/Docusate Sodium 1 Tablet 2 TABLET GT ×2 (10:58→21:20)
[2021-08-29] MEDS: Losartan Potassium 100 MG Tablet GT (10:58)
[2021-08-29 15:52] LABS: Anion Gap 6 (5-15); BUN 38 mg/dL (7-18); BUN/Creat Ratio 99.5 RATIO (10-20); Calcium,Total 8.9 mg/dL (8.5-10.1); Chloride 96 mmol/L (98-107); Creatinine, Serum 0.38 mg/dL (0.70-1.30); EST Glomerular Filtration Rate 240 mL/min (>60); Est Glom Filt Rate - Afr Amer 290 mL/min (>60); Glucose 152 mg/dL (74-106); Potassium 3.1 mmol/L (3.5-5.1); Sodium Level 143 mmol/L (136-145)
[2021-08-29] MEDS: Potassium Chloride Oral Soln 20 MEQ/15 ML UDC 80 MEQ GT (17:31)
--- NOTE | 2021-08-29 17:38 | PN.HOSP_ITS ---
Subjective Subjective Patient was seen and examined today, he remains on the ventilator and sedated at this time, he is presently on 75% oxygen. Objective Data Objective Data Vital Signs: Vital Signs Temp Pulse Resp BP Pulse Ox 98.9 F 127 H 22 H 113/65 93 08/29/21 14:00 08/29/21 16:39 08/29/21 16:39 08/29/21 14:00 08/29/21 16:39 Oxygen Flow Rate (L/min) 60 Oxygen Delivery Method Mechanical Ventilator Weight: 77.2 kg Body Mass Index (BMI) 30.4 Intake & Output: Intake and Output for Last 24 Hours 08/27/21 08/28/21 08/29/21 23:59 23:59 23:59 Intake Total 4447.99 / 4984.59 3805.11 / 4436.71 3167.43 / 3167.43 Output Total 2975 / 3225 4425 / 4950 4535 / 4535 Balance 1472.99 / 1759.59 -619.89 / -513.29 -1367.57 / -1367.57 Medical Nutrition Assessment Dietitian: Malnutrition Criteria Met Start: 08/03/21 13:46 Freq: Status: Active Protocol: Document 08/26/21 09:55 [facility] (Rec: 08/26/21 09:56 [facility] [id number]) Nutrition Malnutrition Evidence of Malnutrition Exists Yes Malnutrition (severe): Acute Illness/Injury Evidenced By Suboptimal Energy Intake ( Severe),Weight Loss (Severe) Clinical Problem Acute Disease or Injury Related Malnutrition Etiology severe, acute malnutrition r/t inadequate energy intake d/t COVID-19 illness Signs/Symptoms as evidenced by unintentional wt loss of ~10.9kg/12.1% since adm, estimated PO intake meeting <50% of 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 Flush amount decreased improved sodium. Lab / Micro Data Result Diagrams: 08/29/21 03:35 08/29/21 15:30 Labs: Laboratory Results - last 24 hr 08/28/21 03:35: Diff Path Review Reviewed 08/28/21 17:15: Sodium 141, Potassium 2.9 L, Chloride 99, Carbon Dioxide 37.0 H, Anion Gap 5, BUN 33 H, Creatinine 0.38 L, Estim Creat Clear Calc 68.40, Est GFR (MDRD) Af Amer 294, Est GFR (MDRD) Non-Af 243, BUN/Creatinine Ratio 87.3 H, Glucose 137 H, Calcium 8.6 08/29/21 03:35: Sodium 143, Potassium 3.0 L, Chloride 97 L, Carbon Dioxide 40.0 H, Anion Gap 6, BUN 33 H, Creatinine 0.37 L, Estim Creat Clear Calc 68.40, Est GFR (MDRD) Af Amer 301, Est GFR (MDRD) Non-Af 249, BUN/Creatinine Ratio 89.2 H, Glucose 134 H, Calcium 8.5 08/29/21 03:35: WBC 11.5 H, RBC 4.03 L, Hgb 11.3 L, Hct 35.6 L, MCV 88.3, MCH 28.0, MCHC 31.7 L, RDW Std Deviation 48.4 H, RDW Coeff of Williams 15.1 H, Plt Count 393, MPV 9.8, Immature Gran % (Auto) 4.500 H, Neut % (Auto) 78.1 H, Lymph % (Au to) 6.3 L, [place] % (Auto) 8.4, Eos % (Auto) 2.3, Baso % (Auto) 0.4, Absolute N euts (auto) 9.0 H, Absolute Lymphs (auto) 0.73 L, Nucleated RBC % 0 08/29/21 15:30: Sodium 143, Potassium 3.1 L, Chloride 96 L, Carbon Dioxide 41.0 H, Anion Gap 6, BUN 38 H, Creatinine 0.38 L, Estim Creat Clear Calc 68.40, Est G FR (MDRD) Af Amer 290, Est GFR (MDRD) Non-Af 240, BUN/Creatinine Ratio 99.5 H, Glucose 152 H, Calcium 8.9 Micro: Microbiology 08/15/21 10:30 Interface Orders Gram Stain - Final 08/15/21 10:30 Interface Orders Respiratory Culture - Final Stenotrophomonas maltophilia 08/10/21 15:30 Sputum, Induced/Lukens Gram Stain - Final 08/10/21 15:30 Sputum, Induced/Lukens Respiratory Culture - Final Klebsiella pneumoniae sp pneum 08/03/21 18:00 Blood Culture (Wb) - Anticubital Left Blood Culture - Final No growth in 5 days. 08/03/21 20:20 Blood Culture (Wb) - Right Hand Blood Culture - Final No growth in 5 days. 08/03/21 01:00 Sputum, Expectorated/Coughed Gram Stain - Final 08/03/21 01:00 Sputum, Expectorated/Coughed Respiratory Culture - Final Mixed normal respiratory christina. No Streptococcus pneumoniae, beta-hemolytic Streptococcus or Staphylococcus aureus isolated. 08/03/21 13:33 Urine, Clean Catch Legionella Antigen - Final 08/03/21 13:33 Urine, Clean Catch Streptococcus pneumoniae Antigen (M - Final ABG Data ABG results: ABG 08/29/21 08:10 Specimen Type ART Sample Site L Radial pH 7.49 H Bicarbonate Actual 42.1 H Total CO2 44 Base Excess 19 H O2 Saturation 93 L O2 % 80 ABG pCO2 54.9 H ABG pO2 64 L Raul Test Positive O2 Delivery Device Adult Vent Vent Mode AC Tidal Volume 450 POC PEEP 12 Physical Exam Narrative Constitutional Narrative: Patient is sedated and on the ventilator General Appearance: cooperative, well kempt and well developed Orientation / Consciousness: awake, oriented to person, oriented to place and or iented to time HEENT normocephalic and head/scalp atraumatic Head and Scalp: normocephalic Eyes Conjunctive normal Neck no JVD, thyroid normal General: trachea midline Resp normal respiratory effort, no retractions, no use of accessory muscles and clear to auscultation bilaterally Auscultation: Negative for rales, rhonchi or wheezes Cardio regular rate, regular rhythm, S1 normal heart sound, S2 normal heart sound, no murmurs, no rub and no gallops GI normal to inspection, nondistended, normoactive bowel sounds, non-distended Extremity no clubbing, cyanosis or edema Skin no rashes or lesions noted General Skin Exam: no breakdown Neuro Neuro Narrative: Patient is sedated and on the ventilator Psych thought process normal Psych Narrative: Patient is sedated and on the ventilator Assessment & Plan Assessment/Plan (1) Pneumonia due to COVID-19 virus: PLAN: 1. COVID-19 pneumonia-patient has completed remdesivir, Decadron, and baricitinib. Patient is fully anticoagulated at this time, patient is currently on a Lasix drip. #2 acute hypoxic respiratory failure secondary to #1-patient is currently on 75% O2, outlook is very uncertain at this time #3 essential hypertension-patient is currently on metoprolol, losartan, hydrochlorothiazide, and labetalol as needed. Due to the fact the patient is on a Lasix drip at this time, I have elected to stop his hydrochlorothiazide. #4 severe protein and caloric acute malnutrition secondary to inadequate energy intake due to COVID-19 pneumonia as evidenced by unintentional weight loss of approximately 15 kg / 16% since onset of acute illness. Patient is n.p.o. due to mechanical intubation, patient currently has PEG tube, patient is being seen by nutritional services #5 cerebrovascular disease- patient is receiving aspirin 325 mg daily Charges/Coding Visit Charges Inpatient E&M: 20730 Subs Hosp L2
--- NOTE | 2021-08-29 18:41 | PN_ITS ---
Progress Note Asked to see the patient at the request of Dr. Veloz for placement of a tracheotomy tube. \HPI Narrative: The patient is a 66-year-old male, with a history as outlined below, who presented to the hospital as a transfer of care from [place] with worsening shortness of breath and hypoxemia. According to documentation, the patient was found by EMS with an oxygen saturation of 72% on room air. While in the outside hospital emergency department, he ultimately required BiPAP support due to increased work of breathing and persistent hypoxemia. The patient symptom onset was approximately July 25. He subsequently tested positive on July 28. He was intubated 20 days ago. [facility] Asthma Hypertension Narcolepsy Stroke/cerebrovascular accident Home Medications doxycycline monohydrate 08/03/21 [History Last Taken Unknown] metoprolol tartrate 08/03/21 [History Last Taken Unknown] metoprolol tartrate 08/03/21 [History Last Taken Unknown] olmesartan-hydrochlorothiazide tab 08/03/21 [History Last Taken Unknown] Allergy/AdvReac Type Severity Reaction Status Date / Time cephalexin [From Keflex] Allergy Rash Verified 08/03/21 00:22 theophylline Allergy Rash Verified 08/03/21 00:22 Social History Smoking Status: Unknown if ever smoked Physical exam: The patient is intubated and sedated. His neck is thin. With his head flexed the thyroid cartilage is easily palpable at about the level of the sternal notch. FiO2 of 70%. PEEP is 10 Assessment: Respiratory failure COVID-19 Prolonged intubation Plan: Tracheostomy is indicated. Ideally I would like to see his FiO2 at about 50%, which would make for much easier procedure. I will be placing him on the operating room schedule for the near future.
[2021-08-30] VITALS (29 sets, daily range): BP systolic 91–148; BP diastolic 56–83; PULSE 110–134; RESP 16–28; TEMP 37.3–38.4; O2SAT 89–94
[2021-08-30] MEDS: CHLORHEXIDINE GLUC 2% CLOTH 1 EACH TOWELETTE TOPICAL (00:13)
[2021-08-30] MEDS: guaiFENesin 10 ML UDC (200MG/10ML) 20 ML GT ×4 (00:13→16:39)
[2021-08-30] MEDS: Vital AF 1.2 Cal Liquid 1,000 ML 70 ML GT ×2 (00:13→14:02)
[2021-08-30] MEDS: Furosemide 500 MG in Empty Viaflex 50 mL 1 EACH CONT INF (00:50)
[2021-08-30] MEDS: Glycerin/Hypromellose/PEG400 15 ml Bottle 1 DRP EACH EYE ×5 (03:14→16:39)
[2021-08-30 03:59] LABS: Absolute Lymphocyte Count 0.81 X10^3/uL (0.83-4.51); Absolute Neutrophil Count 8.8 X10^3/uL (2.0-7.7); Basophil# 0.05 X10^3/uL; Basophil% 0.4 % (0-1); Eosinophil# 0.12 X10^3/uL; Eosinophils% 1.1 % (0-5); Hematocrit 35.7 % (40-54); Lymphocyte # 0.81 X10^3/ul (0.83-4.51); Lymphocyte % 7.3 % (19-41); Mean Corp Hgb Conc 30.8 g/dL (32-36); Mean Corpuscular Hgb 27.6 pg (27.0-32.0); Mean Corpuscular Volume 89.7 fL (80-94); Mean Platelet Vol. 10.2 fl (6.2-12.0); Monocyte# 0.93 X10^3/uL; Monocyte% 8.4 % (0-10); NRBC Flagged by Analyzer 0 % (0-5); Neutrophil # 8.79 X10^3/uL (2.7-7.7); Neutrophil % 78.9 % (47-70); Platelet Count 449 K/mm3 (150-450); RBC Distribution Width CV 15.3 % (11.6-14.6); RBC Distribution Width SD 49.1 fl (35.1-43.9); Red Blood Count 3.98 M/mm3 (4.6-6.2); White Blood Count 11.1 K/mm3 (4.4-11.0)
[2021-08-30 04:14] LABS: Anion Gap 4 (5-15); BUN 43 mg/dL (7-18); BUN/Creat Ratio 93.5 RATIO (10-20); Calcium,Total 9.1 mg/dL (8.5-10.1); Chloride 99 mmol/L (98-107); Creatinine, Serum 0.46 mg/dL (0.70-1.30); EST Glomerular Filtration Rate 193 mL/min (>60); Est Glom Filt Rate - Afr Amer 234 mL/min (>60); Glucose 158 mg/dL (74-106); Potassium 3.4 mmol/L (3.5-5.1); Sodium Level 144 mmol/L (136-145)
[2021-08-30] MEDS: Enoxaparin 80 MG/0.8 ML Syringe SC ×2 (05:04→16:39)
[2021-08-30] MEDS: Menthol/Lanolin/Calamine/Znox 113 GM Tube 1 APPLIC TOPICAL ×2 (05:05→14:03)
[2021-08-30] MEDS: TITRATION PARAMETER CHANGE 1 EACH IV (06:22)
--- NOTE | 2021-08-30 06:30 | PCM.PN.INT ---
Assessment & Plan Assessment/Plan (1) Acute respiratory failure with hypoxia: (2) Pneumonia due to COVID-19 virus: PLAN: RECOMMENDATIONS: 1. Continue to wean FiO2 to maintain oxygen saturations at or above 90%. 2. Continue therapeutic Lovenox. 3. Continue Lasix infusion, as tolerated by hemodynamics and renal function. 4. Aggressive potassium repletion. 5. Continue appropriate GI prophylaxis. 6. Continue tube feeds as tolerated. 7. Tentative plans for tracheostomy on Friday. IMPRESSIONS: 1. Acute hypoxemic respiratory failure secondary to COVID-19 pneumonia The patient initially presented to the hospital with worsening shortness of breath and hypoxemia. The patient has completed treatment courses of remdesivir, decadron and partial course of baricitinib. Ultimately, the patient continued to decompensate from a respiratory perspective and had to be intubated on August 10. Sputum culture was positive for Klebsiella and stenotrophomonas, for which the patient completed an antibiotic treatment course. Plan to continue to wean FiO2 and PEEP as tolerated for saturations greater than 90%. The patient appears to be responding from an oxygenation perspective to aggressive diuresis with a continuous Lasix infusion, which will be continued as tolerated by hemodynamics and renal function. There are tentative plans for tracheostomy on Friday. Plan to continue therapeutic Lovenox given elevated D-dimer. 2. Hypokalemia Aggressive electrolyte repletion as ordered. Continue to monitor on a daily basis. 3. Obesity/hypertension/self-reported asthma/prior CVA Complicates care, management, recovery and prognosis. Continue home medications as indicated. Continue nutritional support via tube feeds and physical therapy as tolerated. TIME: 31 minutes of critical care time, independent of procedures, was spent addressing the patient's acute hypoxemic respiratory failure secondary to COVID-19 pneumonia, secondary bacterial pneumonia, review of all data and collaboration with the care team. Subjective Subjective The patient was seen and examined at the bedside this morning. Events from the last 24 hours have been reviewed. The patient currently has a low-grade fever but remains otherwise hemodynamically stable. He remains on assist control mode mechanical ventilation with an FiO2 requirement of 55% and PEEP of 10. The patient remains on a continuous Lasix infusion along with propofol and fentanyl for sedation. He continues to tolerate tube feeds. The patient is now documented to be overall net +10 L for the hospitalization. Potassium is low this morning at 3.4. Bicarbonate is elevated at 41, but stable. Creatinine is stable. Overall, the patient's oxygenation status is slowly improving with volume optimization. I have spoke at length on multiple occasions with the patient's with regard to the patient's overall clinical status. She has been and continues to be reluctant to change him from anything but a full CODE STATUS. Objective Data Objective Data The patient's most recent lab work, culture data and imaging studies have all been personally reviewed. Sputum culture dated August 10 was positive for Klebsiella pneumoniae. Repeat sputum culture from August 15 grew stenotrophomonas. Vital Signs: Vital Signs Temp Pulse Resp BP Pulse Ox 100.4 F H 128 H 23 H 136/77 H 93 08/30/21 06:00 08/30/21 06:00 08/30/21 06:00 08/30/21 06:00 08/30/21 06:00 Oxygen Flow Rate (L/min) 60 Oxygen Delivery Method Mechanical Ventilator Weight: 73.9 kg Body Mass Index (BMI) 30.4 Intake & Output: Intake and Output for Last 24 Hours 08/28/21 08/29/21 08/30/21 23:59 23:59 23:59 Intake Total 3805.11 / 4436.71 4071.09 / 4623.49 1063.10 / 1063.10 Output Total 4425 / 4950 5690 / 5855 1550 / 1550 Balance -619.89 / -513.29 -1618.91 / -1231.51 -486.90 / -486.90 Medical Nutrition Assessment Dietitian: Malnutrition Criteria Met Start: 08/03/21 13:46 Freq: Status: Active Protocol: Document 08/26/21 09:55 [facility] (Rec: 08/26/21 09:56 [facility] [id number]) Nutrition Malnutrition Evidence of Malnutrition Exists Yes Malnutrition (severe): Acute Illness/Injury Evidenced By Suboptimal Energy Intake ( Severe),Weight Loss (Severe) Clinical Problem Acute Disease or Injury Related Malnutrition Etiology severe, acute malnutrition r/t inadequate energy intake d/t COVID-19 illness Signs/Symptoms as evidenced by unintentional wt loss of ~10.9kg/12.1% since adm, estimated PO intake meeting <50% of estimated nutritional needs >1 week 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 Flush amount decreased improved sodium. Lab / Micro Data Attestation: I reviewed the patient's lab results. Result Diagrams: 08/30/21 03:45 08/30/21 03:45 Labs: Laboratory Results - last 24 hr 08/28/21 03:35: Diff Path Review Reviewed 08/29/21 15:30: Sodium 143, Potassium 3.1 L, Chloride 96 L, Carbon Dioxide 41.0 H, Anion Gap 6, BUN 38 H, Creatinine 0.38 L, Estim Creat Clear Calc 68.40, Est GFR (MDRD) Af Amer 290, Est GFR (MDRD) Non-Af 240, BUN/Creatinine Ratio 99.5 H, Glucose 152 H, Calcium 8.9 08/30/21 03:45: Sodium 144, Potassium 3.4 L, Chloride 99, Carbon Dioxide 41.0 H, Anion Gap 4 L, BUN 43 H, Creatinine 0.46 L, Estim Creat Clear Calc 68.40, Est GFR (MDRD) Af Amer 234, Est GFR (MDRD) Non-Af 193, BUN/Creatinine Ratio 93.5 H, Glucose 158 H, Calcium 9.1 08/30/21 03:45: WBC 11.1 H, RBC 3.98 L, Hgb 11.0 L, Hct 35.7 L, MCV 89.7, MCH 27.6, MCHC 30.8 L, RDW Std Deviation 49.1 H, RDW Coeff of Williams 15.3 H, Plt Count 449, MPV 10.2, Immature Gran % (Auto) 3.900 H, Neut % (Auto) 78.9 H, Lymph % (Auto) 7.3 L, [place] % (Auto) 8.4, Eos % (Auto) 1.1, Baso % (Auto) 0.4, Absolute Neuts (auto) 8.8 H, Absolute Lymphs (auto) 0.81 L, Nucleated RBC % 0 Micro: Microbiology 08/15/21 10:30 Interface Orders Gram Stain - Final 08/15/21 10:30 Interface Orders Respiratory Culture - Final Stenotrophomonas maltophilia 08/10/21 15:30 Sputum, Induced/Lukens Gram Stain - Final 08/10/21 15:30 Sputum, Induced/Lukens Respiratory Culture - Final Klebsiella pneumoniae sp pneum 08/03/21 18:00 Blood Culture (Wb) - Anticubital Left Blood Culture - Final No growth in 5 days. 08/03/21 20:20 Blood Culture (Wb) - Right Hand Blood Culture - Final No growth in 5 days. 08/03/21 01:00 Sputum, Expectorated/Coughed Gram Stain - Final 08/03/21 01:00 Sputum, Expectorated/Coughed Respiratory Culture - Final Mixed normal respiratory christina. No Streptococcus pneumoniae, beta-hemolytic Streptococcus or Staphylococcus aureus isolated. 08/03/21 13:33 Urine, Clean Catch Legionella Antigen - Final 08/03/21 13:33 Urine, Clean Catch Streptococcus pneumoniae Antigen (M - Final ABG Data ABG results: ABG 08/29/21 08:10 Specimen Type ART Sample Site L Radial pH 7.49 H Bicarbonate Actual 42.1 H Total CO2 44 Base Excess 19 H O2 Saturation 93 L O2 % 80 ABG pCO2 54.9 H ABG pO2 64 L Raul Test Positive O2 Delivery Device Adult Vent Vent Mode AC Tidal Volume 450 POC PEEP 12 Physical Exam Const no apparent distress General Appearance: intubated and patient mechanically ventilated HEENT normocephalic and head/scalp atraumatic Mouth: endotracheal tube in place and OG tube in place Eyes PERRL and EOMs intact bilaterally Neck supple General: trachea midline Resp Resp Narrative: Scant rhonchi. Effort and Inspection: tachypneic Auscultation: diminished lung sounds; Negative for rales, rhonchi or wheezes Cardio S1 normal heart sound and S2 normal heart sound Rate: tachycardic GI normal to inspection, nondistended, normoactive bowel sounds Inspection: GI tube present Extremity no clubbing, cyanosis or edema Skin no rashes or lesions noted Neuro Sensorium / Orientation: sedated on vent Charges/Coding Procedures Hospitalists Procedures: 51708 Critial Care 1st Hr
[2021-08-30] MEDS: Potassium Chloride 10mEq/100mL 10 MEQ/100 ML IV.SOLN. 100 MEQ IV BOLUS ×4 (07:42→14:03)
[2021-08-30] MEDS: Losartan Potassium 100 MG Tablet GT (07:44)
[2021-08-30] MEDS: Potassium Chloride Oral Soln 20 MEQ/15 ML UDC 40 MEQ PO (07:44)
[2021-08-30] MEDS: Juven (unflavored) Packet 1 PACKET GT ×2 (07:44→16:39)
[2021-08-30] MEDS: Aspirin 325 MG Tablet GT (07:44)
[2021-08-30] MEDS: Chlorhexidine 15 ML PO (07:45)
[2021-08-30] MEDS: Metoprolol Tartrate 25 MG Tablet GT (07:45)
[2021-08-30] MEDS: Senna/Docusate Sodium 1 Tablet 2 TABLET GT (07:45)
[2021-08-30] MEDS: Propofol 10MG/Ml 1,000 MG/100 ML Bottle 6.7 MG CONT INF ×2 (08:00→20:43)
[2021-08-30] MEDS: Acetaminophen 650 MG/20 ML UDC PO (12:04)
[2021-08-30] MEDS: 0.9% Saline Lock 10 ML Syringe IV (16:35)
[2021-08-30 17:05] LABS: Anion Gap 3 (5-15); BUN 50 mg/dL (7-18); BUN/Creat Ratio 100.6 RATIO (10-20); Calcium,Total 9.2 mg/dL (8.5-10.1); Chloride 104 mmol/L (98-107); EST Glomerular Filtration Rate 177 mL/min (>60); Est Glom Filt Rate - Afr Amer 214 mL/min (>60); Glucose 156 mg/dL (74-106); Potassium 3.8 mmol/L (3.5-5.1); Sodium Level 147 mmol/L (136-145)
--- NOTE | 2021-08-30 21:07 | PCM.PN.HOSP ---
Subjective Subjective Patient was seen and examined today, he spiked a temp of 101.1 today, I talked briefly with nursing about his care, patient's still desires that the patient be a full code and all measures to be carried out for the patient. Objective Data Objective Data Vital Signs: Vital Signs Temp Pulse Resp BP Pulse Ox 100.3 F H 131 H 22 H 146/75 H 93 08/30/21 16:00 08/30/21 20:00 08/30/21 19:20 08/30/21 19:00 08/30/21 19:20 Oxygen Flow Rate (L/min) 60 Oxygen Delivery Method Mechanical Ventilator Weight: 73.9 kg Body Mass Index (BMI) 30.4 Intake & Output: Intake and Output for Last 24 Hours 08/28/21 08/29/21 08/30/21 23:59 23:59 23:59 Intake Total 3805.11 / 4436.71 4071.09 / 4623.49 3370.53 / 3370.53 Output Total 4425 / 4950 5690 / 5855 4075 / 4075 Balance -619.89 / -513.29 -1618.91 / -1231.51 -704.47 / -704.47 Medical Nutrition Assessment Dietitian: Malnutrition Criteria Met Start: 08/03/21 13:46 Freq: Status: Active Protocol: Document 08/26/21 09:55 YAEL (Rec: 08/26/21 09:56 YAEL [id number]) Nutrition Malnutrition Evidence of Malnutrition Exists Yes Malnutrition (severe): Acute Illness/Injury Evidenced By Suboptimal Energy Intake ( Severe),Weight Loss (Severe) Clinical Problem Acute Disease or Injury Related Malnutrition Etiology severe, acute malnutrition r/t inadequate energy intake d/t COVID-19 illness Signs/Symptoms as evidenced by unintentional wt loss of ~10.9kg/12.1% since adm, estimated PO intake meeting <50% of estimated nutritional needs >1 week 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 Flush amount decreased improved sodium. Lab / Micro Data Result Diagrams: 08/30/21 03:45 08/30/21 16:35 Labs: Laboratory Results - last 24 hr 08/30/21 03:45: Sodium 144, Potassium 3.4 L, Chloride 99, Carbon Dioxide 41.0 H, Anion Gap 4 L, BUN 43 H, Creatinine 0.46 L, Estim Creat Clear Calc 68.40, Est GFR (MDRD) Af Amer 234, Est GFR (MDRD) Non-Af 193, BUN/Creatinine Ratio 93.5 H, Glucose 158 H, Calcium 9.1 08/30/21 03:45: WBC 11.1 H, RBC 3.98 L, Hgb 11.0 L, Hct 35.7 L, MCV 89.7, MCH 27.6, MCHC 30.8 L, RDW Std Deviation 49.1 H, RDW Coeff of Williams 15.3 H, Plt Count 449, MPV 10.2, Immature Gran % (Auto) 3.900 H, Neut % (Auto) 78.9 H, Lymph % (Auto) 7.3 L, [place] % (Auto) 8.4, Eos % (Auto) 1.1, Baso % (Auto) 0.4, Absolute Neuts (auto) 8.8 H, Absolute Lymphs (auto) 0.81 L, Nucleated RBC % 0 08/30/21 16:35: Sodium 147 H, Potassium 3.8, Chloride 104, Carbon Dioxide 40.0 H, Anion Gap 3 L, BUN 50 H, Creatinine 0.50 L, Estim Creat Clear Calc 68.40, Est GFR (MDRD) Af Amer 214, Est GFR (MDRD) Non-Af 177, BUN/Creatinine Ratio 100.6 H, Glucose 156 H, Calcium 9.2 Micro: Microbiology 08/15/21 10:30 Interface Orders Gram Stain - Final 08/15/21 10:30 Interface Orders Respiratory Culture - Final Stenotrophomonas maltophilia 08/10/21 15:30 Sputum, Induced/Lukens Gram Stain - Final 08/10/21 15:30 Sputum, Induced/Lukens Respiratory Culture - Final Klebsiella pneumoniae sp pneum 08/03/21 18:00 Blood Culture (Wb) - Anticubital Left Blood Culture - Final No growth in 5 days. 08/03/21 20:20 Blood Culture (Wb) - Right Hand Blood Culture - Final No growth in 5 days. 08/03/21 01:00 Sputum, Expectorated/Coughed Gram Stain - Final 08/03/21 01:00 Sputum, Expectorated/Coughed Respiratory Culture - Final Mixed normal respiratory christina. No Streptococcus pneumoniae, beta-hemolytic Streptococcus or Staphylococcus aureus isolated. 08/03/21 13:33 Urine, Clean Catch Legionella Antigen - Final 08/03/21 13:33 Urine, Clean Catch Streptococcus pneumoniae Antigen (M - Final Physical Exam Narrative Constitutional Narrative: Patient is sedated and on the ventilator General Appearance: cooperative, well kempt and well developed Orientation / Consciousness: awake, oriented to person, oriented to place and oriented to time HEENT normocephalic and head/scalp atraumatic Head and Scalp: normocephalic Eyes Conjunctive normal Neck no JVD, thyroid normal General: trachea midline Resp normal respiratory effort, no retractions, no use of accessory muscles and clear to auscultation bilaterally Auscultation: Negative for rales, rhonchi or wheezes Cardio regular rate, regular rhythm, S1 normal heart sound, S2 normal heart sound, no murmurs, no rub and no gallops GI normal to inspection, nondistended, normoactive bowel sounds, non-distended Extremity no clubbing, cyanosis or edema Skin no rashes or lesions noted General Skin Exam: no breakdown Neuro Neuro Narrative: Patient is sedated and on the ventilator Psych Psych Narrative: Patient is sedated and on the ventilator Assessment & Plan Assessment/Plan (1) Pneumonia due to COVID-19 virus: PLAN: 1. COVID-19 pneumonia-patient has completed remdesivir, Decadron, and baricitinib. Patient is fully anticoagulated at this time, patient is currently on a Lasix drip. #2 acute hypoxic respiratory failure secondary to #1-patient is currently on 75% O2, outlook is very uncertain at this time #3 essential hypertension-patient is currently on metoprolol, losartan, hydrochlorothiazide, and labetalol as needed. #4 severe protein and caloric acute malnutrition secondary to inadequate energy intake due to COVID-19 pneumonia as evidenced by unintentional weight loss of approximately 15 kg / 16% since onset of acute illness. Patient is n.p.o. due to mechanical intubation, patient currently has PEG tube, patient is being seen by nutritional services #5 cerebrovascular disease- patient is receiving aspirin 325 mg daily Charges/Coding Visit Charges Inpatient E&M: 51152 Subs Hosp L2
[2021-08-31] VITALS (38 sets, daily range): BP systolic 103–159; BP diastolic 55–89; PULSE 92–135; RESP 18–119; TEMP 37–38.3; O2SAT 91–97
[2021-08-31] MEDS: Menthol/Lanolin/Calamine/Znox 113 GM Tube 1 APPLIC TOPICAL ×4 (00:47→21:27)
[2021-08-31] MEDS: Glycerin/Hypromellose/PEG400 15 ml Bottle 1 DRP EACH EYE ×7 (00:47→21:30)
[2021-08-31] MEDS: Metoprolol Tartrate 25 MG Tablet GT (00:49)
[2021-08-31] MEDS: guaiFENesin 10 ML UDC (200MG/10ML) 20 ML GT ×4 (00:49→17:31)
[2021-08-31] MEDS: Senna/Docusate Sodium 1 Tablet 2 TABLET GT ×3 (00:49→21:30)
[2021-08-31] MEDS: Chlorhexidine 15 ML PO ×3 (00:57→21:28)
[2021-08-31] MEDS: Acetaminophen 650 MG/20 ML UDC PO (01:03)
[2021-08-31] MEDS: Furosemide 500 MG in Empty Viaflex 50 mL 1 EACH CONT INF (01:51)
[2021-08-31] MEDS: Propofol 10MG/Ml 1,000 MG/100 ML Bottle 4.4 MG CONT INF ×2 (05:00→14:30)
[2021-08-31] MEDS: TITRATION PARAMETER CHANGE 1 EACH IV (05:17)
[2021-08-31 05:58] LABS: Absolute Lymphocyte Count 0.94 X10^3/uL (0.83-4.51); Absolute Neutrophil Count 7.9 X10^3/uL (2.0-7.7); Basophil# 0.08 X10^3/uL; Basophil% 0.8 % (0-1); Eosinophil# 0.02 X10^3/uL; Eosinophils% 0.2 % (0-5); Hematocrit 38.7 % (40-54); Hemoglobin 11.3 g/dL (13.0-16.5); Lymphocyte # 0.94 X10^3/ul (0.83-4.51); Mean Corp Hgb Conc 29.2 g/dL (32-36); Mean Corpuscular Hgb 26.8 pg (27.0-32.0); Mean Corpuscular Volume 91.9 fL (80-94); Mean Platelet Vol. 10.1 fl (6.2-12.0); Monocyte% 9.6 % (0-10); NRBC Flagged by Analyzer 0.2 % (0-5); Neutrophil # 7.88 X10^3/uL (2.7-7.7); Neutrophil % 75.8 % (47-70); Platelet Count 500 K/mm3 (150-450); RBC Distribution Width CV 15.7 % (11.6-14.6); RBC Distribution Width SD 51.5 fl (35.1-43.9); Red Blood Count 4.21 M/mm3 (4.6-6.2); White Blood Count 10.4 K/mm3 (4.4-11.0)
[2021-08-31 06:12] LABS: Anion Gap 5 (5-15); BUN 49 mg/dL (7-18); BUN/Creat Ratio 91.1 RATIO (10-20); Calcium,Total 8.9 mg/dL (8.5-10.1); Chloride 102 mmol/L (98-107); Creatinine, Serum 0.54 mg/dL (0.70-1.30); EST Glomerular Filtration Rate 161 mL/min (>60); Est Glom Filt Rate - Afr Amer 195 mL/min (>60); Glucose 170 mg/dL (74-106); Potassium 3.2 mmol/L (3.5-5.1); Sodium Level 149 mmol/L (136-145)
--- NOTE | 2021-08-31 06:26 | PN.CC_ITS ---
Assessment & Plan Assessment/Plan (1) Acute respiratory failure with hypoxia: (2) Pneumonia due to COVID-19 virus: PLAN: RECOMMENDATIONS: 1. Continue to wean FiO2 to maintain oxygen saturations at or above 90%. 2. Continue therapeutic Lovenox. 3. Given rising sodium and chloride, will discontinue Lasix infusion and transition to bolus dosing twice daily. 4. Increase free water flushes as ordered. 5. Aggressive potassium repletion. 6. Continue appropriate GI prophylaxis. 7. Continue tube feeds as tolerated. 8. Tentative plans for tracheostomy on Friday. IMPRESSIONS: 1. Acute hypoxemic respiratory failure secondary to COVID-19 pneumonia The patient initially presented to the hospital with worsening shortness of breath and hypoxemia. The patient has completed treatment courses of remdesivir, decadron and partial course of baricitinib. Ultimately, the patient continued to decompensate from a respiratory perspective and had to be intubated on August 10. Sputum culture was positive for Klebsiella and stenotropho monas, for which the patient completed an antibiotic treatment course. Plan to continue to wean FiO2 and PEEP as tolerated for saturations greater than 90%. The patient appears to be responding from an oxygenation perspective to diuresis. There are tentative plans for tracheostomy on Friday. Plan to continue therapeutic Lovenox given elevated D-dimer. 2. Hypokalemia Aggressive electrolyte repletion as ordered. Continue to monitor on a daily basis. 3. Obesity/hypertension/self-reported asthma/prior CVA Complicates care, management, recovery and prognosis. Continue home medications as indicated. Continue nutritional support via tube feeds and physical therapy as tolerated. TIME: 32 minutes of critical care time, independent of procedures, was spent addressing the patient's acute hypoxemic respiratory failure secondary to COVID- 19 pneumonia, secondary bacterial pneumonia, review of all data and collabo ration with the care team. Subjective Subjective The patient was seen and examined at the bedside this morning. Events from the last 24 hours have been reviewed. The patient currently has a low-grade fever but remains otherwise hemodynamically stable. He remains on assist control mode mechanical ventilation with an FiO2 requirement of 55% and PEEP of 10. The patient remains on a continuous Lasix infusion along with propofol and fentanyl for sedation. He continues to tolerate tube feeds. The patient is currently do cumented to be overall net +9.4 L for the hospitalization. Sodium is increased to 149. Potassium is low at 3.2. Creatinine is stable. Objective Data Objective Data The patient's most recent lab work, culture data and imaging studies have all been personally reviewed. Sputum culture dated August 10 was positive for Kl ebsiella pneumoniae. Repeat sputum culture from August 15 grew stenotrophomonas. Vital Signs: Vital Signs Temp Pulse Resp BP Pulse Ox 100.6 F H 121 H 24 H 140/73 H 97 08/31/21 02:00 08/31/21 04:00 08/31/21 03:33 08/31/21 02:00 08/31/21 03:33 Oxygen Flow Rate (L/min) 60 Oxygen Delivery Method Mechanical Ventilator Weight: 73.6 kg Body Mass Index (BMI) 30.4 Intake & Output: Intake and Output for Last 24 Hours 08/29/21 08/30/21 08/31/21 23:59 23:59 23:59 Intake Total 4071.09 / 4623.49 3477.33 / 3596.53 950.44 / 950.44 Output Total 5690 / 5855 4075 / 4790 1375 / 1375 Balance -1618.91 / -1231.51 -597.67 / -1193.47 -424.56 / -424.56 Medical Nutrition Assessment Dietitian: Malnutrition Criteria Met Start: 08/03/21 13:46 Freq: Status: Active Protocol: Document 08/26/21 09:55 YAEL (Rec: 08/26/21 09:56 [facility] [id number]) Nutrition Malnutrition Evidence of Malnutrition Exists Yes Malnutrition (severe): Acute Illness/Injury Evidenced By Suboptimal Energy Intake ( Severe),Weight Loss (Severe) Clinical Problem Acute Disease or Injury Related Malnutrition Etiology severe, acute malnutrition r/t inadequate energy intake d/t COVID-19 illness Signs/Symptoms as evidenced by unintentional wt loss of ~10.9kg/12.1% since adm, estimated PO intake meeting <50% of 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 Flush amount decreased improved sodium. Lab / Micro Data Attestation: I reviewed the patient's lab results. Result Diagrams: 08/31/21 05:45 08/31/21 05:45 Labs: Laboratory Results - last 24 hr 08/30/21 16:35: Sodium 147 H, Potassium 3.8, Chloride 104, Carbon Dioxide 40.0 H , Anion Gap 3 L, BUN 50 H, Creatinine 0.50 L, Estim Creat Clear Calc 68.40, Est GFR (MDRD) Af Amer 214, Est GFR (MDRD) Non-Af 177, BUN/Creatinine Ratio 100.6 H, Glucose 156 H, Calcium 9.2 08/31/21 05:45: WBC 10.4, RBC 4.21 L, Hgb 11.3 L, Hct 38.7 L, MCV 91.9, MCH 26.8 L, MCHC 29.2 L D, RDW Std Deviation 51.5 H, RDW Coeff of Williams 15.7 H, Plt Count 500 H, MPV 10.1, Immature Gran % (Auto) 4.600 H, Neut % (Auto) 75.8 H, Lymph % (Auto) 9.0 L, [place] % (Auto) 9.6, Eos % (Auto) 0.2, Baso % (Auto) 0.8, Absolute Neuts (auto) 7.9 H, Absolute Lymphs (auto) 0.94, Nucleated RBC % 0.2 08/31/21 05:45: Sodium 149 H, Potassium 3.2 L, Chloride 102, Carbon Dioxide 42.0 H, Anion Gap 5, BUN 49 H, Creatinine 0.54 L, Estim Creat Clear Calc 68.40, Est GFR (MDRD) Af Amer 195, Est GFR (MDRD) Non-Af 161, BUN/Creatinine Ratio 91.1 H, Glucose 170 H, Calcium 8.9 Micro: Microbiology 08/15/21 10:30 Interface Orders Gram Stain - Final 08/15/21 10:30 Interface Orders Respiratory Culture - Final Stenotrophomonas maltophilia 08/10/21 15:30 Sputum, Induced/Lukens Gram Stain - Final 08/10/21 15:30 Sputum, Induced/Lukens Respiratory Culture - Final Klebsiella pneumoniae sp pneum 08/03/21 18:00 Blood Culture (Wb) - Anticubital Left Blood Culture - Final No growth in 5 days. 08/03/21 20:20 Blood Culture (Wb) - Right Hand Blood Culture - Final No growth in 5 days. 08/03/21 01:00 Sputum, Expectorated/Coughed Gram Stain - Final 08/03/21 01:00 Sputum, Expectorated/Coughed Respiratory Culture - Final Mixed normal respiratory christina. No Streptococcus pneumoniae, beta-hemolytic Streptococcus or Staphylococcus aureus isolated. 08/03/21 13:33 Urine, Clean Catch Legionella Antigen - Final 08/03/21 13:33 Urine, Clean Catch Streptococcus pneumoniae Antigen (M - Final Physical Exam Const no apparent distress General Appearance: intubated and patient mechanically ventilated HEENT normocephalic and head/scalp atraumatic Mouth: endotracheal tube in place and OG tube in place Eyes PERRL Pupil: sluggish Neck supple General: trachea midline Resp Effort and Inspection: tachypneic Auscultation: diminished lung sounds; Negative for rales, rhonchi or wheezes Cardio S1 normal heart sound and S2 normal heart sound Rate: tachycardic GI normal to inspection, nondistended, normoactive bowel sounds Inspection: GI tube present Extremity no clubbing, cyanosis or edema Skin no rashes or lesions noted Neuro Sensorium / Orientation: sedated on vent Charges/Coding Procedures Hospitalists Procedures: 78002 Critial Care 1st Hr
[2021-08-31] MEDS: Vital AF 1.2 Cal Liquid 1,000 ML 70 ML GT ×2 (06:40→21:27)
[2021-08-31] MEDS: Enoxaparin 80 MG/0.8 ML Syringe SC ×2 (06:42→17:30)
[2021-08-31] MEDS: Ipratropium/Albuterol Sulfate 3 ML AMPUL.NEB INHALATION ×3 (06:56→19:05)
[2021-08-31] MEDS: Potassium Chloride 10mEq/100mL 10 MEQ/100 ML IV.SOLN. 100 MEQ IV BOLUS ×4 (08:11→12:45)
[2021-08-31] MEDS: Potassium Chloride Oral Soln 20 MEQ/15 ML UDC 40 MEQ PO (08:35)
[2021-08-31] MEDS: Juven (unflavored) Packet 1 PACKET GT ×2 (08:35→17:30)
[2021-08-31] MEDS: Aspirin 325 MG Tablet GT (09:12)
[2021-08-31] MEDS: Furosemide 40 MG/4 ML Vial IV ×2 (09:13→17:30)
[2021-08-31] MEDS: Losartan Potassium 100 MG Tablet GT (09:13)
[2021-08-31] MEDS: Metoprolol Tartrate 50 MG Tablet GT ×2 (09:19→21:28)
[2021-08-31] MEDS: 0.9% Saline Lock 10 ML Syringe IV (09:21)
[2021-08-31 09:28] LABS: CPK Total, Creatine Kinase 21 U/L (39-308); Triglycerides 179 mg/dL
[2021-08-31] MEDS: CHLORHEXIDINE GLUC 2% CLOTH 1 EACH TOWELETTE TOPICAL (12:07)
--- NOTE | 2021-08-31 17:50 | PCM.PN.HOSP ---
Subjective Subjective Patient was seen and examined today in the ICU, he is still on the ventilator under sedation, his is in the room when I carried out my examination. Patient's had no questions for me. Objective Data Objective Data Vital Signs: Vital Signs Temp Pulse Resp BP Pulse Ox 98.6 F 104 H 19 H 126/66 H 93 08/31/21 14:00 08/31/21 16:00 08/31/21 15:53 08/31/21 15:00 08/31/21 15:53 Oxygen Flow Rate (L/min) 60 Oxygen Delivery Method Mechanical Ventilator Weight: 73.6 kg Body Mass Index (BMI) 30.4 Intake & Output: Intake and Output for Last 24 Hours 08/29/21 08/30/21 08/31/21 23:59 23:59 23:59 Intake Total 4071.09 / 4623.49 3477.33 / 3596.53 3044.61 / 3044.61 Output Total 5690 / 5855 4075 / 4790 2825 / 2825 Balance -1618.91 / -1231.51 -597.67 / -1193.47 219.61 / 219.61 Medical Nutrition Assessment Dietitian: Malnutrition Criteria Met Start: 08/03/21 13:46 Freq: Status: Active Protocol: Document 08/26/21 09:55 YAEL (Rec: 08/26/21 09:56 YAEL [id number]) Nutrition Malnutrition Evidence of Malnutrition Exists Yes Malnutrition (severe): Acute Illness/Injury Evidenced By Suboptimal Energy Intake ( Severe),Weight Loss (Severe) Clinical Problem Acute Disease or Injury Related Malnutrition Etiology severe, acute malnutrition r/t inadequate energy intake d/t COVID-19 illness Signs/Symptoms as evidenced by unintentional wt loss of ~10.9kg/12.1% since adm, estimated PO intake meeting <50% of estimated nutritional needs >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 Flush amount decreased improved sodium. Lab / Micro Data Result Diagrams: 08/31/21 05:45 08/31/21 05:45 Labs: Laboratory Results - last 24 hr 08/31/21 05:45: WBC 10.4, RBC 4.21 L, Hgb 11.3 L, Hct 38.7 L, MCV 91.9, MCH 26.8 L, MCHC 29.2 L D, RDW Std Deviation 51.5 H, RDW Coeff of Williams 15.7 H, Plt Count 500 H, MPV 10.1, Immature Gran % (Auto) 4.600 H, Neut % (Auto) 75.8 H, Lymph % (Auto) 9.0 L, [place] % (Auto) 9.6, Eos % (Auto) 0.2, Baso % (Auto) 0.8, Absolute Neuts (auto) 7.9 H, Absolute Lymphs (auto) 0.94, Nucleated RBC % 0.2 08/31/21 05:45: Sodium 149 H, Potassium 3.2 L, Chloride 102, Carbon Dioxide 42.0 H, Anion Gap 5, BUN 49 H, Creatinine 0.54 L, Estim Creat Clear Calc 68.40, Est GFR (MDRD) Af Amer 195, Est GFR (MDRD) Non-Af 161, BUN/Creatinine Ratio 91.1 H, Glucose 170 H, Calcium 8.9 08/31/21 05:45: Total Creatine Kinase 21 L, Triglycerides 179 Micro: Microbiology 08/15/21 10:30 Interface Orders Gram Stain - Final 08/15/21 10:30 Interface Orders Respiratory Culture - Final Stenotrophomonas maltophilia 08/10/21 15:30 Sputum, Induced/Lukens Gram Stain - Final 08/10/21 15:30 Sputum, Induced/Lukens Respiratory Culture - Final Klebsiella pneumoniae sp pneum 08/03/21 18:00 Blood Culture (Wb) - Anticubital Left Blood Culture - Final No growth in 5 days. 08/03/21 20:20 Blood Culture (Wb) - Right Hand Blood Culture - Final No growth in 5 days. 08/03/21 01:00 Sputum, Expectorated/Coughed Gram Stain - Final 08/03/21 01:00 Sputum, Expectorated/Coughed Respiratory Culture - Final Mixed normal respiratory christina. No Streptococcus pneumoniae, beta-hemolytic Streptococcus or Staphylococcus aureus isolated. 08/03/21 13:33 Urine, Clean Catch Legionella Antigen - Final 08/03/21 13:33 Urine, Clean Catch Streptococcus pneumoniae Antigen (M - Final Physical Exam Narrative Constitutional Narrative: Patient is sedated and on the ventilator General Appearance: cooperative, well kempt and well developed Orientation / Consciousness: awake, oriented to person, oriented to place and oriented to time HEENT normocephalic and head/scalp atraumatic Head and Scalp: normocephalic Eyes Conjunctive normal Neck no JVD, thyroid normal General: trachea midline Resp normal respiratory effort, no retractions, no use of accessory muscles and clear to auscultation bilaterally Auscultation: Negative for rales, rhonchi or wheezes Cardio regular rate, regular rhythm, S1 normal heart sound, S2 normal heart sound, no murmurs, no rub and no gallops GI normal to inspection, nondistended, normoactive bowel sounds, non-distended Extremity no clubbing, cyanosis or edema Skin no rashes or lesions noted Neuro Neuro Narrative: Patient is sedated and on the ventilator Psych Psych Narrative: Patient is sedated and on the ventilator Assessment & Plan Assessment/Plan (1) Pneumonia due to COVID-19 virus: PLAN: 1. COVID-19 pneumonia-patient has completed remdesivir, Decadron, and baricitinib. Patient is fully anticoagulated at this time, patient is currently on a Lasix drip. #2 acute hypoxic respiratory failure secondary to #1-patient is currently on 50% O2, outlook is very uncertain at this time #3 essential hypertension-patient is currently on metoprolol, losartan, hydrochlorothiazide, and labetalol as needed. #4 severe protein and caloric acute malnutrition secondary to inadequate energy intake due to COVID-19 pneumonia as evidenced by unintentional weight loss of approximately 15 kg / 16% since onset of acute illness. Patient is n.p.o. due to mechanical intubation, patient currently has PEG tube, patient is being seen by nutritional services #5 cerebrovascular disease- patient is receiving aspirin 325 mg daily Charges/Coding Visit Charges Inpatient E&M: 40903 Subs Hosp L2
[2021-08-31 18:04] LABS: Anion Gap 1 (5-15); BUN 52 mg/dL (7-18); Calcium,Total 9.1 mg/dL (8.5-10.1); Chloride 109 mmol/L (98-107); Creatinine, Serum 0.39 mg/dL (0.70-1.30); EST Glomerular Filtration Rate 231 mL/min (>60); Est Glom Filt Rate - Afr Amer 280 mL/min (>60); Glucose 169 mg/dL (74-106); Potassium 3.6 mmol/L (3.5-5.1); Sodium Level 149 mmol/L (136-145)
[2021-09-01] VITALS (38 sets, daily range): BP systolic 96–166; BP diastolic 57–125; PULSE 94–130; RESP 14–31; TEMP 37.1–38.2; O2SAT 90–95
[2021-09-01] MEDS: guaiFENesin 10 ML UDC (200MG/10ML) 20 ML GT ×4 (00:30→17:07)
[2021-09-01] MEDS: Glycerin/Hypromellose/PEG400 15 ml Bottle 1 DRP EACH EYE ×6 (01:13→19:57)
[2021-09-01] MEDS: Propofol 10MG/Ml 1,000 MG/100 ML Bottle 4.4 MG CONT INF (01:20)
[2021-09-01 04:41] LABS: Absolute Lymphocyte Count 0.95 X10^3/uL (0.83-4.51); Absolute Neutrophil Count 10.2 X10^3/uL (2.0-7.7); Basophil# 0.07 X10^3/uL; Basophil% 0.6 % (0-1); Eosinophil# 0.02 X10^3/uL; Eosinophils% 0.2 % (0-5); Hematocrit 36.2 % (40-54); Hemoglobin 10.6 g/dL (13.0-16.5); Lymphocyte # 0.95 X10^3/ul (0.83-4.51); Lymphocyte % 7.5 % (19-41); Mean Corp Hgb Conc 29.3 g/dL (32-36); Mean Corpuscular Hgb 27.4 pg (27.0-32.0); Mean Corpuscular Volume 93.5 fL (80-94); Monocyte# 1.09 X10^3/uL; Monocyte% 8.6 % (0-10); NRBC Flagged by Analyzer 0.2 % (0-5); Neutrophil # 10.15 X10^3/uL (2.7-7.7); Neutrophil % 79.9 % (47-70); Platelet Count 424 K/mm3 (150-450); RBC Distribution Width CV 15.8 % (11.6-14.6); RBC Distribution Width SD 53.1 fl (35.1-43.9); Red Blood Count 3.87 M/mm3 (4.6-6.2); White Blood Count 12.7 K/mm3 (4.4-11.0)
[2021-09-01 04:55] LABS: Anion Gap 3 (5-15); BUN 42 mg/dL (7-18); BUN/Creat Ratio 118.3 RATIO (10-20); Calcium,Total 8.9 mg/dL (8.5-10.1); Chloride 108 mmol/L (98-107); Creatinine, Serum 0.36 mg/dL (0.70-1.30); EST Glomerular Filtration Rate 261 mL/min (>60); Est Glom Filt Rate - Afr Amer 316 mL/min (>60); Glucose 147 mg/dL (74-106); Potassium 3.4 mmol/L (3.5-5.1); Sodium Level 152 mmol/L (136-145)
[2021-09-01] MEDS: Menthol/Lanolin/Calamine/Znox 113 GM Tube 1 APPLIC TOPICAL ×3 (05:25→19:56)
[2021-09-01] MEDS: CHLORHEXIDINE GLUC 2% CLOTH 1 EACH TOWELETTE TOPICAL (05:25)
[2021-09-01] MEDS: Enoxaparin 80 MG/0.8 ML Syringe SC ×2 (05:26→17:06)
--- NOTE | 2021-09-01 06:20 | PCM.PN.INT ---
Assessment & Plan Assessment/Plan (1) Acute respiratory failure with hypoxia: (2) Pneumonia due to COVID-19 virus: PLAN: RECOMMENDATIONS: 1. Continue to wean FiO2 to maintain oxygen saturations at or above 90%. 2. Continue therapeutic Lovenox. Anticoagulation will need to be held prior to tracheostomy. 3. Hold Lasix for now given rising sodium. Start D5W. 4. Additional potassium repletion. 5. Continue appropriate GI prophylaxis. 6. Continue tube feeds as tolerated. 7. The patient is scheduled for tracheostomy on Friday. IMPRESSIONS: 1. Acute hypoxemic respiratory failure secondary to COVID-19 pneumonia The patient initially presented to the hospital with worsening shortness of breath and hypoxemia. The patient has completed treatment courses of remdesivir, decadron and partial course of baricitinib. Ultimately, the patient continued to decompensate from a respiratory perspective and had to be intubated on August 10. Sputum culture was positive for Klebsiella and stenotrophomonas, for which the patient completed an antibiotic treatment course. Plan to continue to wean FiO2 and PEEP as tolerated for saturations greater than 90%. The patient responded from an oxygenation perspective to diuresis. There are tentative plans for tracheostomy on Friday. Plan to continue therapeutic Lovenox given elevated D-dimer. 2. Hypokalemia/hypernatremia Aggressive electrolyte repletion as ordered. Will hold Lasix for now and start D5W. 3. Obesity/hypertension/self-reported asthma/prior CVA Complicates care, management, recovery and prognosis. Continue home medications as indicated. Continue nutritional support via tube feeds and physical therapy as tolerated. TIME: 31 minutes of critical care time, independent of procedures, was spent addressing the patient's acute hypoxemic respiratory failure secondary to COVID-19 pneumonia, secondary bacterial pneumonia, review of all data and collaboration with the care team. Subjective Subjective The patient was seen and examined at the bedside this morning. Events from the last 24 hours have been reviewed. The patient is afebrile and hemodynamically stable. He remains on assist control mode mechanical ventilation with an FiO2 requirement of 50% and PEEP of 10. He is sedated on propofol and fentanyl. He is tolerating tube feeds. Nursing staff did report intermittent episodes of SVT last night. He is currently documented to be overall net +10.3 L for the hospitalization. Sodium has increased to 152 with a potassium of 3.4. Creatinine is stable. Objective Data Objective Data The patient's most recent lab work, culture data and imaging studies have all been personally reviewed. Sputum culture dated August 10 was positive for Klebsiella pneumoniae. Repeat sputum culture from August 15 grew stenotrophomonas. Vital Signs: Vital Signs Temp Pulse Resp BP Pulse Ox 99.4 F H 119 H 20 H 156/83 H 93 09/01/21 06:00 09/01/21 06:00 09/01/21 06:00 09/01/21 06:00 09/01/21 06:00 Oxygen Flow Rate (L/min) 60 Oxygen Delivery Method Mechanical Ventilator Weight: 74.1 kg Body Mass Index (BMI) 30.4 Intake & Output: Intake and Output for Last 24 Hours 08/30/21 08/31/21 09/01/21 23:59 23:59 23:59 Intake Total 3477.33 / 3596.53 3391.01 / 3555.41 1418.85 / 1418.85 Output Total 4075 / 4790 3825 / 3825 575 / 575 Balance -597.67 / -1193.47 -433.99 / -269.59 843.85 / 843.85 Medical Nutrition Assessment Dietitian: Malnutrition Criteria Met Start: 08/03/21 13:46 Freq: Status: Active Protocol: Document 08/26/21 09:55 YAEL (Rec: 08/26/21 09:56 [facility] [id number]) Nutrition Malnutrition Evidence of Malnutrition Exists Yes Malnutrition (severe): Acute Illness/Injury Evidenced By Suboptimal Energy Intake ( Severe),Weight Loss (Severe) Clinical Problem Acute Disease or Injury Related Malnutrition Etiology severe, acute malnutrition r/t inadequate energy intake d/t COVID-19 illness Signs/Symptoms as evidenced by unintentional wt loss of ~10.9kg/12.1% since adm, estimated PO intake meeting <50% of estimated nutritional needs >1 week [employer]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 Flush amount decreased improved sodium. Lab / Micro Data Attestation: I reviewed the patient's lab results. Result Diagrams: 09/01/21 04:30 09/01/21 04:30 Labs: Laboratory Results - last 24 hr 08/31/21 05:45: Total Creatine Kinase 21 L, Triglycerides 179 08/31/21 17:25: Sodium 149 H, Potassium 3.6, Chloride 109 H, Carbon Dioxide 39.0 H, Anion Gap 1 L, BUN 52 H, Creatinine 0.39 L, Estim Creat Clear Calc 68.40, Est GFR (MDRD) Af Amer 280, Est GFR (MDRD) Non-Af 231, BUN/Creatinine Ratio 132.0 H, Glucose 169 H, Calcium 9.1 09/01/21 04:30: WBC 12.7 H, RBC 3.87 L, Hgb 10.6 L, Hct 36.2 L, MCV 93.5, MCH 27.4, MCHC 29.3 L, RDW Std Deviation 53.1 H, RDW Coeff of Williams 15.8 H, Plt Count 424, MPV 10.0, Immature Gran % (Auto) 3.200 H, Neut % (Auto) 79.9 H, Lymph % (Auto) 7.5 L, [place] % (Auto) 8.6, Eos % (Auto) 0.2, Baso % (Auto) 0.6, Absolute Neuts (auto) 10.2 H, Absolute Lymphs (auto) 0.95, Nucleated RBC % 0.2 09/01/21 04:30: Sodium 152 H, Potassium 3.4 L, Chloride 108 H, Carbon Dioxide 41.0 H, Anion Gap 3 L, BUN 42 H, Creatinine 0.36 L, Estim Creat Clear Calc 68.40, Est GFR (MDRD) Af Amer 316, Est GFR (MDRD) Non-Af 261, BUN/Creatinine Ratio 118.3 H, Glucose 147 H, Calcium 8.9 Micro: Microbiology 08/15/21 10:30 Interface Orders Gram Stain - Final 08/15/21 10:30 Interface Orders Respiratory Culture - Final Stenotrophomonas maltophilia 08/10/21 15:30 Sputum, Induced/Lukens Gram Stain - Final 08/10/21 15:30 Sputum, Induced/Lukens Respiratory Culture - Final Klebsiella pneumoniae sp pneum 08/03/21 18:00 Blood Culture (Wb) - Anticubital Left Blood Culture - Final No growth in 5 days. 08/03/21 20:20 Blood Culture (Wb) - Right Hand Blood Culture - Final No growth in 5 days. 08/03/21 01:00 Sputum, Expectorated/Coughed Gram Stain - Final 08/03/21 01:00 Sputum, Expectorated/Coughed Respiratory Culture - Final Mixed normal respiratory christina. No Streptococcus pneumoniae, beta-hemolytic Streptococcus or Staphylococcus aureus isolated. 08/03/21 13:33 Urine, Clean Catch Legionella Antigen - Final 08/03/21 13:33 Urine, Clean Catch Streptococcus pneumoniae Antigen (M - Final Physical Exam Const no apparent distress General Appearance: intubated and patient mechanically ventilated HEENT normocephalic and head/scalp atraumatic Mouth: endotracheal tube in place and OG tube in place Eyes PERRL Pupil: sluggish Neck supple General: trachea midline Resp Effort and Inspection: tachypneic Auscultation: diminished lung sounds; Negative for rales, rhonchi or wheezes Cardio S1 normal heart sound and S2 normal heart sound Rate: tachycardic GI normal to inspection, nondistended, normoactive bowel sounds Inspection: GI tube present Extremity no clubbing, cyanosis or edema Skin no rashes or lesions noted Neuro Sensorium / Orientation: sedated on vent Charges/Coding Procedures Hospitalists Procedures: 07692 Critial Care 1st Hr
[2021-09-01] MEDS: Potassium Chloride 10mEq/100mL 10 MEQ/100 ML IV.SOLN. 100 MEQ IV BOLUS ×4 (06:34→10:08)
[2021-09-01] MEDS: TITRATION PARAMETER CHANGE 1 EACH IV (06:34)
[2021-09-01] MEDS: Ipratropium/Albuterol Sulfate 3 ML AMPUL.NEB INHALATION ×3 (06:57→19:00)
[2021-09-01] MEDS: Juven (unflavored) Packet 1 PACKET GT ×2 (07:45→17:06)
[2021-09-01] MEDS: Chlorhexidine 15 ML PO ×2 (09:20→19:57)
[2021-09-01] MEDS: Aspirin 325 MG Tablet GT (09:20)
[2021-09-01] MEDS: Metoprolol Tartrate 50 MG Tablet GT ×2 (09:21→19:58)
[2021-09-01] MEDS: Senna/Docusate Sodium 1 Tablet 2 TABLET GT ×2 (09:21→19:58)
[2021-09-01] MEDS: Losartan Potassium 100 MG Tablet GT (09:21)
[2021-09-01] MEDS: Vital AF 1.2 Cal Liquid 1,000 ML 70 ML GT (12:46)
--- NOTE | 2021-09-01 13:07 | PCM.PN.HOSP ---
Subjective Subjective Patient was seen and examined today, he does not appear to be in any distress, he remains on the ventilator at this time Objective Data Objective Data Vital Signs: Vital Signs Temp Pulse Resp BP Pulse Ox 99.8 F H 100 18 134/62 H 93 09/01/21 12:00 09/01/21 12:00 09/01/21 12:00 09/01/21 12:00 09/01/21 12:00 Oxygen Flow Rate (L/min) 60 Oxygen Delivery Method Mechanical Ventilator Weight: 74.1 kg Body Mass Index (BMI) 30.4 Intake & Output: Intake and Output for Last 24 Hours 08/30/21 08/31/21 09/01/21 23:59 23:59 23:59 Intake Total 3477.33 / 3596.53 3391.01 / 3555.41 2784.97 / 2784.97 Output Total 4075 / 4790 3825 / 3825 1050 / 1050 Balance -597.67 / -1193.47 -433.99 / -269.59 1734.97 / 1734.97 Medical Nutrition Assessment Dietitian: Malnutrition Criteria Met Start: 08/03/21 13:46 Freq: Status: Active Protocol: Document 09/01/21 09:51 YAEL (Rec: 09/01/21 09:51 [facility] [id number]) Nutrition Malnutrition Evidence of Malnutrition Exists Yes Malnutrition (severe): Acute Illness/Injury Evidenced By Suboptimal Energy Intake ( Severe),Weight Loss (Severe) Clinical Problem Acute Disease or Injury Related Malnutrition Etiology severe, acute malnutrition r/t inadequate energy intake d/t COVID-19 illness Signs/Symptoms as evidenced by unintentional wt loss of ~12% since adm, estimated PO intake meeting < 50% of estimated nutritional needs >1 week [employer]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 Shravan BID via PEG. Lab / Micro Data Result Diagrams: 09/01/21 04:30 09/01/21 04:30 Labs: Laboratory Results - last 24 hr 08/31/21 17:25: Sodium 149 H, Potassium 3.6, Chloride 109 H, Carbon Dioxide 39.0 H, Anion Gap 1 L, BUN 52 H, Creatinine 0.39 L, Estim Creat Clear Calc 68.40, Est GFR (MDRD) Af Amer 280, Est GFR (MDRD) Non-Af 231, BUN/Creatinine Ratio 132.0 H, Glucose 169 H, Calcium 9.1 09/01/21 04:30: WBC 12.7 H, RBC 3.87 L, Hgb 10.6 L, Hct 36.2 L, MCV 93.5, MCH 27.4, MCHC 29.3 L, RDW Std Deviation 53.1 H, RDW Coeff of Williams 15.8 H, Plt Count 424, MPV 10.0, Immature Gran % (Auto) 3.200 H, Neut % (Auto) 79.9 H, Lymph % (Auto) 7.5 L, [place] % (Auto) 8.6, Eos % (Auto) 0.2, Baso % (Auto) 0.6, Absolute Neuts (auto) 10.2 H, Absolute Lymphs (auto) 0.95, Nucleated RBC % 0.2 09/01/21 04:30: Sodium 152 H, Potassium 3.4 L, Chloride 108 H, Carbon Dioxide 41.0 H, Anion Gap 3 L, BUN 42 H, Creatinine 0.36 L, Estim Creat Clear Calc 68.40, Est GFR (MDRD) Af Amer 316, Est GFR (MDRD) Non-Af 261, BUN/Creatinine Ratio 118.3 H, Glucose 147 H, Calcium 8.9 Micro: Microbiology 08/15/21 10:30 Interface Orders Gram Stain - Final 08/15/21 10:30 Interface Orders Respiratory Culture - Final Stenotrophomonas maltophilia 08/10/21 15:30 Sputum, Induced/Lukens Gram Stain - Final 08/10/21 15:30 Sputum, Induced/Lukens Respiratory Culture - Final Klebsiella pneumoniae sp pneum 08/03/21 18:00 Blood Culture (Wb) - Anticubital Left Blood Culture - Final No growth in 5 days. 08/03/21 20:20 Blood Culture (Wb) - Right Hand Blood Culture - Final No growth in 5 days. 08/03/21 01:00 Sputum, Expectorated/Coughed Gram Stain - Final 08/03/21 01:00 Sputum, Expectorated/Coughed Respiratory Culture - Final Mixed normal respiratory christina. No Streptococcus pneumoniae, beta-hemolytic Streptococcus or Staphylococcus aureus isolated. 08/03/21 13:33 Urine, Clean Catch Legionella Antigen - Final 08/03/21 13:33 Urine, Clean Catch Streptococcus pneumoniae Antigen (M - Final Physical Exam Const no apparent distress Constitutional Narrative: Patient is under mild sedation for this time General Appearance: cooperative, well kempt and well developed Orientation / Consciousness: awake, oriented to person, oriented to place and oriented to time HEENT normocephalic, head/scalp atraumatic and moist oral mucous membranes Head and Scalp: normocephalic Eyes conjunctivae normal Neck nuchal rigidity, no JVD and thyroid normal General: trachea midline Resp normal respiratory effort and clear to auscultation bilaterally Auscultation: Negative for rales, rhonchi or wheezes Cardio regular rate, regular rhythm, S1 normal heart sound, S2 normal heart sound, no murmurs, no rub and no gallops GI normal to inspection, nondistended, normoactive bowel sounds Extremity normal to inspection and no clubbing, cyanosis or edema Skin no rashes or lesions noted General Skin Exam: no breakdown Neuro Neuro Narrative: Patient is sedated and on the ventilator Psych Psych Narrative: Patient is sedated and on the ventilator Assessment & Plan Assessment/Plan (1) Pneumonia due to COVID-19 virus: PLAN: 1. COVID-19 pneumonia-patient has completed remdesivir, Decadron, and baricitinib. Patient is fully anticoagulated at this time, patient was taken off his Lasix drip #2 acute hypoxic respiratory failure secondary to #1-patient is currently on 50% O2, outlook is very uncertain at this time #3 essential hypertension-patient is currently on metoprolol, losartan, hydrochlorothiazide, and labetalol as needed. #4 severe protein and caloric acute malnutrition secondary to inadequate energy intake due to COVID-19 pneumonia as evidenced by unintentional weight loss of approximately 15 kg / 16% since onset of acute illness. Patient is n.p.o. due to mechanical intubation, patient currently has PEG tube, patient is being seen by nutritional services #5 cerebrovascular disease- patient is receiving aspirin 325 mg daily Charges/Coding Visit Charges Inpatient E&M: 34172 Subs Hosp L2
[2021-09-01] MEDS: Acetaminophen 650 MG/20 ML UDC PO (23:29)
[2021-09-02] VITALS (38 sets, daily range): BP systolic 85–178; BP diastolic 50–87; PULSE 83–125; RESP 12–27; TEMP 36.7–38.2; O2SAT 90–95
[2021-09-02 00:27] LABS: Anion Gap 3 (5-15); BUN 39 mg/dL (7-18); BUN/Creat Ratio 99.7 RATIO (10-20); Calcium,Total 8.5 mg/dL (8.5-10.1); Chloride 108 mmol/L (98-107); Creatinine, Serum 0.39 mg/dL (0.70-1.30); EST Glomerular Filtration Rate 233 mL/min (>60); Est Glom Filt Rate - Afr Amer 282 mL/min (>60); Glucose 170 mg/dL (74-106); Potassium 3.8 mmol/L (3.5-5.1); Sodium Level 149 mmol/L (136-145)
[2021-09-02] MEDS: guaiFENesin 10 ML UDC (200MG/10ML) 20 ML GT ×4 (01:03→16:45)
[2021-09-02] MEDS: Vital AF 1.2 Cal Liquid 1,000 ML 70 ML GT (03:38)
[2021-09-02] MEDS: Propofol 10MG/Ml 1,000 MG/100 ML Bottle 2.2 MG CONT INF (03:38)
[2021-09-02 04:02] LABS: Hematocrit 34.2 % (40-54); Hemoglobin 10.3 g/dL (13.0-16.5); Mean Corp Hgb Conc 30.1 g/dL (32-36); Mean Corpuscular Hgb 28.1 pg (27.0-32.0); Mean Corpuscular Volume 93.2 fL (80-94); Mean Platelet Vol. 10.5 fl (6.2-12.0); POSITIVE COUNT YES; POSITIVE MORPHOLOGY YES; Platelet Count 413 K/mm3 (150-450); RBC Distribution Width CV 15.6 % (11.6-14.6); RBC Distribution Width SD 52.8 fl (35.1-43.9); Red Blood Count 3.67 M/mm3 (4.6-6.2); White Blood Count 12.5 K/mm3 (4.4-11.0)
[2021-09-02 04:28] LABS: Differential Indicated MANUAL DIFF
[2021-09-02] MEDS: Glycerin/Hypromellose/PEG400 15 ml Bottle 1 DRP EACH EYE ×6 (04:41→20:57)
[2021-09-02 04:43] LABS: Anion Gap 2 (5-15); BUN 35 mg/dL (7-18); BUN/Creat Ratio 97.8 RATIO (10-20); Calcium,Total 8.4 mg/dL (8.5-10.1); Chloride 105 mmol/L (98-107); Creatinine, Serum 0.36 mg/dL (0.70-1.30); EST Glomerular Filtration Rate 258 mL/min (>60); Est Glom Filt Rate - Afr Amer 312 mL/min (>60); Glucose 157 mg/dL (74-106); Potassium 3.9 mmol/L (3.5-5.1); Sodium Level 147 mmol/L (136-145)
[2021-09-02] MEDS: Menthol/Lanolin/Calamine/Znox 113 GM Tube 1 APPLIC TOPICAL ×3 (06:03→20:57)
--- NOTE | 2021-09-02 06:10 | PN.CC_ITS ---
Assessment & Plan Assessment/Plan (1) Acute respiratory failure with hypoxia: (2) Pneumonia due to COVID-19 virus: PLAN: RECOMMENDATIONS: 1. Continue to wean FiO2 to maintain oxygen saturations at or above 90%. 2. Hold therapeutic Lovenox for tracheostomy tomorrow. 3. Stop D5W. Continue intermittent dosing of diuretics as needed. 4. Continue appropriate GI prophylaxis. 5. Continue tube feeds as tolerated. 6. The patient is scheduled for tracheostomy tomorrow. IMPRESSIONS: 1. Acute hypoxemic respiratory failure secondary to COVID-19 pneumonia The patient initially presented to the hospital with worsening shortness of br eath and hypoxemia. The patient has completed treatment courses of remdesivir, decadron and partial course of baricitinib. Ultimately, the patient continued to decompensate from a respiratory perspective and had to be intubated on August 10. Sputum culture was positive for Klebsiella and stenotrophomonas, for which the patient completed an antibiotic treatment course. Plan to continue to wean FiO2 and PEEP as tolerated for saturations greater than 90%. The patient responded from an oxygenation perspective to diuresis. There are tentative plans for tracheostomy tomorrow. Accordingly, therapeutic Lovenox will be placed on hold today. 2. Obesity/hypertension/self-reported asthma/prior CVA Complicates care, management, recovery and prognosis. Continue home medications as indicated. Continue nutritional support via tube feeds and physical therapy as tolerated. TIME: 31 minutes of critical care time, independent of procedures, was spent addressing the patient's acute hypoxemic respiratory failure secondary to COVID- 19 pneumonia, secondary bacterial pneumonia, review of all data and collaboration with the care team. Subjective Subjective The patient was seen and examined at the bedside this morning. Events from the last 24 hours have been reviewed. The patient is afebrile and hemodynamically stable. He remains on assist control mode mechanical ventilation with an FiO2 requirement of 45% and PEEP of 8. He is sedated on propofol and fentanyl. He is tolerating tube feeds. The patient is documented to be overall net +12.9 L for the hospitalization. Sodium has improved to 147 this morning. Creatinine remains within normal limits. The patient's Lovenox is on hold for tracheostomy tomorrow. Objective Data Objective Data The patient's most recent lab work, culture data and imaging studies have all been personally reviewed. Sputum culture dated August 10 was positive for Klebsiella pneumoniae. Repeat sputum culture from August 15 grew stenotrophomonas. Vital Signs: Vital Signs Temp Pulse Resp BP Pulse Ox 100.6 F H 121 H 18 168/86 H 93 09/02/21 04:00 09/02/21 04:00 09/02/21 04:00 09/02/21 04:00 09/02/21 04:00 Oxygen Flow Rate (L/min) 60 Oxygen Delivery Method Mechanical Ventilator Weight: 74.1 kg Body Mass Index (BMI) 30.4 Intake & Output: Intake and Output for Last 24 Hours 08/31/21 09/01/21 09/02/21 23:59 23:59 23:59 Intake Total 3391.01 / 3555.41 4580.92 / 4898.12 480.48 / 480.48 Output Total 3825 / 3825 1450 / 1750 575 / 575 Balance -433.99 / -269.59 3130.92 / 3148.12 -94.52 / -94.52 Medical Nutrition Assessment Dietitian: Malnutrition Criteria Met Start: 08/03/21 13:46 Freq: Status: Active Protocol: Document 09/01/21 09:51 YAEL (Rec: 09/01/21 09:51 [facility] [id number]) Nutrition Malnutrition Evidence of Malnutrition Exists Yes Malnutrition (severe): Acute Illness/Injury Evidenced By Suboptimal Energy Intake ( Severe),Weight Loss (Severe) Clinical Problem Acute Disease or Injury Related Malnutrition Etiology severe, acute malnutrition r/t inadequate energy intake d/t COVID-19 illness Signs/Symptoms as evidenced by unintentional wt loss of ~12% since adm, estimated PO intake meeting < 50% of estimated nutritional needs >1 week [employer]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 Shravan BID via PEG. Lab / Micro Data Attestation: I reviewed the patient's lab results. Result Diagrams: 09/02/21 03:30 09/02/21 03:30 Labs: Laboratory Results - last 24 hr 09/01/21 23:35: Sodium 149 H, Potassium 3.8, Chloride 108 H, Carbon Dioxide 38.0 H, Anion Gap 3 L, BUN 39 H, Creatinine 0.39 L, Estim Creat Clear Calc 68.40, Est GFR (MDRD) Af Amer 282, Est GFR (MDRD) Non-Af 233, BUN/Creatinine Ratio 99.7 H, Glucose 170 H, Calcium 8.5 09/02/21 03:30: WBC 12.5 H, RBC 3.67 L, Hgb 10.3 L, Hct 34.2 L, MCV 93.2, MCH 28.1, MCHC 30.1 L, RDW Std Deviation 52.8 H, RDW Coeff of Williams 15.6 H, Plt Count 413, MPV 10.5, Neut % (Auto) Not Reportable 09/02/21 03:30: Sodium 147 H, Potassium 3.9, Chloride 105, Carbon Dioxide 40.0 H , Anion Gap 2 L, BUN 35 H, Creatinine 0.36 L, Estim Creat Clear Calc 68.40, Est GFR (MDRD) Af Amer 312, Est GFR (MDRD) Non-Af 258, BUN/Creatinine Ratio 97.8 H, Glucose 157 H, Calcium 8.4 L Micro: Microbiology 08/15/21 10:30 Interface Orders Gram Stain - Final 08/15/21 10:30 Interface Orders Respiratory Culture - Final Stenotrophomonas maltophilia 08/10/21 15:30 Sputum, Induced/Lukens Gram Stain - Final 08/10/21 15:30 Sputum, Induced/Lukens Respiratory Culture - Final Klebsiella pneumoniae sp pneum 08/03/21 18:00 Blood Culture (Wb) - Anticubital Left Blood Culture - Final No growth in 5 days. 08/03/21 20:20 Blood Culture (Wb) - Right Hand Blood Culture - Final No growth in 5 days. 08/03/21 01:00 Sputum, Expectorated/Coughed Gram Stain - Final 08/03/21 01:00 Sputum, Expectorated/Coughed Respiratory Culture - Final Mixed normal respiratory christina. No Streptococcus pneumoniae, beta-hemolytic Streptococcus or Staphylococcus aureus isolated. 08/03/21 13:33 Urine, Clean Catch Legionella Antigen - Final 08/03/21 13:33 Urine, Clean Catch Streptococcus pneumoniae Antigen (M - Final Physical Exam Const no apparent distress General Appearance: intubated and patient mechanically ventilated HEENT normocephalic and head/scalp atraumatic Mouth: endotracheal tube in place and OG tube in place Eyes PERRL Pupil: sluggish Neck supple General: trachea midline Resp Auscultation: diminished lung sounds; Negative for rales, rhonchi or wheezes Cardio S1 normal heart sound and S2 normal heart sound Rate: tachycardic GI normal to inspection, nondistended, normoactive bowel sounds Inspection: GI tube present Extremity no clubbing, cyanosis or edema Skin no rashes or lesions noted Neuro Sensorium / Orientation: sedated on vent Charges/Coding Procedures Hospitalists Procedures: [id number] Critial Care 1st Hr
[2021-09-02] MEDS: Ipratropium/Albuterol Sulfate 3 ML AMPUL.NEB INHALATION ×3 (06:36→19:07)
[2021-09-02 07:11] LABS: Absolute Lymphocyte Count 0.63 X10^3/uL (0.83-4.51); Absolute Neutrophil Count 10.4 X10^3/uL (2.0-7.7); Lymphocyte 5 % (19-41); Metamyelocyte 2 % (0-1); Monocyte 9 % (0-10); Myelocyte 1 % (0-0); Neutrophil-Band 10 % (0-5); Neutrophil-Segmented 73 % (47-70); Platelet Estimate ADEQUATE (ADEQ); Total Cells Counted 100 (MANUAL DIFF)
[2021-09-02 07:12] LABS: Anisocytosis 1+; Red Cell Morphology NORM C+C NORMAL (NORM C&C)
[2021-09-02] MEDS: Acetaminophen 650 MG/20 ML UDC PO ×2 (08:07→16:47)
[2021-09-02] MEDS: Juven (unflavored) Packet 1 PACKET GT ×2 (08:07→16:45)
[2021-09-02] MEDS: Metoprolol Tartrate 50 MG Tablet GT ×2 (09:03→21:01)
[2021-09-02] MEDS: Senna/Docusate Sodium 1 Tablet 2 TABLET GT ×2 (09:03→20:58)
[2021-09-02] MEDS: Losartan Potassium 100 MG Tablet GT (09:04)
[2021-09-02] MEDS: Chlorhexidine 15 ML PO ×2 (09:04→20:57)
[2021-09-02] MEDS: CHLORHEXIDINE GLUC 2% CLOTH 1 EACH TOWELETTE TOPICAL (09:04)
[2021-09-02] MEDS: Aspirin 325 MG Tablet GT (09:06)
--- NOTE | 2021-09-02 09:11 | PCM.PN.HOSP ---
Subjective Subjective Patient was seen and examined today in ICU, he remains sedated on the ventilator at this time, the plan is for him to undergo tracheostomy tomorrow. Objective Data Objective Data Vital Signs: Vital Signs Temp Pulse Resp BP Pulse Ox 99.7 F H 123 H 12 153/67 H 91 09/02/21 08:00 09/02/21 09:03 09/02/21 08:00 09/02/21 09:03 09/02/21 08:00 Oxygen Flow Rate (L/min) 60 Oxygen Delivery Method Mechanical Ventilator Weight: 76.5 kg Body Mass Index (BMI) 30.4 Intake & Output: Intake and Output for Last 24 Hours 08/31/21 09/01/21 09/02/21 23:59 23:59 23:59 Intake Total 3391.01 / 3555.41 4580.92 / 4898.12 2036.13 / 203.13 Output Total 3825 / 3825 1450 / 1750 975 / 975 Balance -433.99 / -269.59 3130.92 / 3148.12 1061.13 / 1061.13 Medical Nutrition Assessment Dietitian: Malnutrition Criteria Met Start: 08/03/21 13:46 Freq: Status: Active Protocol: Document 09/01/21 09:51 YAEL (Rec: 09/01/21 09:51 [facility] [id number]) Nutrition Malnutrition Evidence of Malnutrition Exists Yes Malnutrition (severe): Acute Illness/Injury Evidenced By Suboptimal Energy Intake ( Severe),Weight Loss (Severe) Clinical Problem Acute Disease or Injury Related Malnutrition Etiology severe, acute malnutrition r/t inadequate energy intake d/t COVID-19 illness Signs/Symptoms as evidenced by unintentional wt loss of ~12% since adm, estimated PO intake meeting < 50% of 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 Shravan BID via PEG. Lab / Micro Data Result Diagrams: 09/02/21 03:30 09/02/21 03:30 Labs: Laboratory Results - last 24 hr 09/01/21 23:35: Sodium 149 H, Potassium 3.8, Chloride 108 H, Carbon Dioxide 38.0 H, Anion Gap 3 L, BUN 39 H, Creatinine 0.39 L, Estim Creat Clear Calc 68.40, Est GFR (MDRD) Af Amer 282, Est GFR (MDRD) Non-Af 233, BUN/Creatinine Ratio 99.7 H, Glucose 170 H, Calcium 8.5 09/02/21 03:30: WBC 12.5 H, RBC 3.67 L, Hgb 10.3 L, Hct 34.2 L, MCV 93.2, MCH 28.1, MCHC 30.1 L, RDW Std Deviation 52.8 H, RDW Coeff of Williams 15.6 H, Plt Count 413, MPV 10.5, Neut % (Auto) Not Reportable, Absolute Neuts (auto) 10.4 H, Absolute Lymphs (auto) 0.63 L, Total Counted 100, Neutrophils % (Manual) 73 H, Band Neutrophils % 10 H, Lymphocytes % (Manual) 5 L, Monocytes % (Manual) 9, Metamyelocytes % 2 H, Myelocytes % 1 H, Diff Path Review December, Platelet Estimate ADEQUATE, RBC Morphology NORM C+C, Anisocytosis 1+ 09/02/21 03:30: Sodium 147 H, Potassium 3.9, Chloride 105, Carbon Dioxide 40.0 H, Anion Gap 2 L, BUN 35 H, Creatinine 0.36 L, Estim Creat Clear Calc 68.40, Est GFR (MDRD) Af Amer 312, Est GFR (MDRD) Non-Af 258, BUN/Creatinine Ratio 97.8 H, Glucose 157 H, Calcium 8.4 L Micro: Microbiology 08/15/21 10:30 Interface Orders Gram Stain - Final 08/15/21 10:30 Interface Orders Respiratory Culture - Final Stenotrophomonas maltophilia 08/10/21 15:30 Sputum, Induced/Lukens Gram Stain - Final 08/10/21 15:30 Sputum, Induced/Lukens Respiratory Culture - Final Klebsiella pneumoniae sp pneum 08/03/21 18:00 Blood Culture (Wb) - Anticubital Left Blood Culture - Final No growth in 5 days. 08/03/21 20:20 Blood Culture (Wb) - Right Hand Blood Culture - Final No growth in 5 days. 08/03/21 01:00 Sputum, Expectorated/Coughed Gram Stain - Final 08/03/21 01:00 Sputum, Expectorated/Coughed Respiratory Culture - Final Mixed normal respiratory christina. No Streptococcus pneumoniae, beta-hemolytic Streptococcus or Staphylococcus aureus isolated. 08/03/21 13:33 Urine, Clean Catch Legionella Antigen - Final 08/03/21 13:33 Urine, Clean Catch Streptococcus pneumoniae Antigen (M - Final Physical Exam Narrative no apparent distress Constitutional Narrative: Patient is under sedation for this time General Appearance: cooperative, well kempt and well developed Orientation / Consciousness: Patient is sedated on the ventilator HEENT normocephalic, head/scalp atraumatic and moist oral mucous membranes Head and Scalp: normocephalic Eyes conjunctivae normal Neck nuchal rigidity, no JVD and thyroid normal General: trachea midline Resp normal respiratory effort and clear to auscultation bilaterally Auscultation: Negative for rales, rhonchi or wheezes Cardio regular rate, regular rhythm, S1 normal heart sound, S2 normal heart sound, no murmurs, no rub and no gallops GI normal to inspection, nondistended, normoactive bowel sounds Extremity normal to inspection and no clubbing, cyanosis or edema Skin no rashes or lesions noted General Skin Exam: no breakdown Neuro Neuro Narrative: Patient is sedated and on the ventilator Psych Psych Narrative: Patient is sedated and on the ventilator Assessment & Plan Assessment/Plan (1) Pneumonia due to COVID-19 virus: PLAN: 1. COVID-19 pneumonia-patient has completed remdesivir, Decadron, and baricitinib. Patient is fully anticoagulated at this time, patient was taken off his Lasix drip #2 acute hypoxic respiratory failure secondary to #1-patient is currently on 45% O2, outlook is very uncertain at this time #3 essential hypertension-patient is currently on metoprolol, losartan, hydrochlorothiazide, and labetalol as needed. #4 severe protein and caloric acute malnutrition secondary to inadequate energy intake due to COVID-19 pneumonia as evidenced by unintentional weight loss of approximately 15 kg / 16% since onset of acute illness. Patient is n.p.o. due to mechanical intubation, patient currently has PEG tube, patient is being seen by nutritional services #5 cerebrovascular disease- patient is receiving aspirin 325 mg daily Charges/Coding Visit Charges Inpatient E&M: 82477 Subs Hosp L2
[2021-09-02] MEDS: 0.9% Saline Lock 10 ML Syringe IV (14:50)
[2021-09-03] VITALS (45 sets, daily range): BP systolic 98–170; BP diastolic 49–79; PULSE 87–133; RESP 12–29; TEMP 37.6–38.8; O2SAT 90–100; BMI 25.6
[2021-09-03] MEDS: guaiFENesin 10 ML UDC (200MG/10ML) 20 ML GT ×5 (00:15→23:12)
[2021-09-03] MEDS: Glycerin/Hypromellose/PEG400 15 ml Bottle 1 DRP EACH EYE ×5 (03:22→20:45)
[2021-09-03 04:38] LABS: Absolute Lymphocyte Count 0.55 X10^3/uL (0.83-4.51); Absolute Neutrophil Count 9.1 X10^3/uL (2.0-7.7); Basophil# 0.06 X10^3/uL; Basophil% 0.6 % (0-1); Eosinophil# 0.04 X10^3/uL; Eosinophils% 0.4 % (0-5); Hematocrit 37.2 % (40-54); Hemoglobin 11.2 g/dL (13.0-16.5); Lymphocyte # 0.55 X10^3/ul (0.83-4.51); Lymphocyte % 5.1 % (19-41); Mean Corp Hgb Conc 30.1 g/dL (32-36); Mean Corpuscular Hgb 27.5 pg (27.0-32.0); Mean Corpuscular Volume 91.2 fL (80-94); Mean Platelet Vol. 9.9 fl (6.2-12.0); Monocyte# 0.67 X10^3/uL; Monocyte% 6.2 % (0-10); NRBC Flagged by Analyzer 0.3 % (0-5); Neutrophil # 9.14 X10^3/uL (2.7-7.7); Neutrophil % 84.2 % (47-70); POSITIVE DIFFERENTIAL YES; Platelet Count 257 K/mm3 (150-450); RBC Distribution Width CV 15.4 % (11.6-14.6); RBC Distribution Width SD 50.6 fl (35.1-43.9); Red Blood Count 4.08 M/mm3 (4.6-6.2); White Blood Count 10.8 K/mm3 (4.4-11.0)
[2021-09-03 04:42] LABS: Differential Indicated SCAN CRITERIA MET
[2021-09-03 05:13] LABS: ALB/GLOB Ratio 0.3 RATIO (0.9-2.4); AST(SGOT) 30 U/L (15-37); Alanine Aminotransfer ALT/SGPT 88 U/L (16-61); Albumin, Serum 1.5 g/dL (3.2-5.0); Alkaline Phosphatase 60 U/L (45-117); Anion Gap 3 (5-15); BUN 30 mg/dL (7-18); BUN/Creat Ratio 122.4 RATIO (10-20); Calcium,Total 8.5 mg/dL (8.5-10.1); Chloride 108 mmol/L (98-107); Creatinine, Serum 0.24 mg/dL (0.70-1.30); EST Glomerular Filtration Rate 400 mL/min (>60); Est Glom Filt Rate - Afr Amer 484 mL/min (>60); Globulin 4.6 g/dL (2.2-4.2); Glucose 128 mg/dL (74-106); Potassium 3.2 mmol/L (3.5-5.1); Protein, Total 6.1 g/dL (6.4-8.2); Sodium Level 149 mmol/L (136-145)
[2021-09-03] MEDS: Menthol/Lanolin/Calamine/Znox 113 GM Tube 1 APPLIC TOPICAL ×3 (05:32→20:44)
[2021-09-03] MEDS: Acetaminophen 650 MG/20 ML UDC PO ×3 (05:32→20:45)
[2021-09-03] MEDS: Potassium Chloride Oral Soln 20 MEQ/15 ML UDC 40 MEQ GT (06:23)
[2021-09-03] MEDS: Ipratropium/Albuterol Sulfate 3 ML AMPUL.NEB INHALATION ×3 (06:52→20:28)
--- NOTE | 2021-09-03 07:07 | PN.CC_ITS ---
Assessment & Plan Assessment/Plan (1) Acute respiratory failure with hypoxia: (2) Pneumonia due to COVID-19 virus: PLAN: RECOMMENDATIONS: 1. Continue to wean FiO2 to maintain oxygen saturations at or above 90%. 2. Hold therapeutic Lovenox for 24 hours following tracheostomy 3. Stop D5W. Continue intermittent dosing of diuretics as needed. Replete potassium 4. Continue appropriate GI prophylaxis. 5. Continue tube feeds as tolerated after tracheostomy per ENT 6. Patient to have tracheostomy today 7. Discharge planning for LTAC in the next 24 to 48 hours IMPRESSIONS: 1. Acute hypoxemic respiratory failure secondary to COVID-19 pneumonia The patient initially presented to the hospital with worsening shortness of breath and hypoxemia. The patient has completed treatment courses of remdesivir, decadron and partial course of baricitinib. Ultimately, the patient continued to decompensate from a respiratory perspective and had to be intubated on August 10. Sputum culture was positive for Klebsiella and stenotrophomonas, for which the patient completed an antibiotic treatment course. Plan to continue to wean FiO2 and PEEP as tolerated for saturations greater than 90%, but appears to have stabilized on the current settings. The patient responded from an oxygenation perspective to diuresis. There are tentative plans for tracheostomy today. Accordingly, therapeutic Lovenox will be placed on hold today and can be resumed when okay with ENT. 2. Obesity/hypertension/self-reported asthma/prior CVA Complicates care, management, recovery and prognosis. Continue home medications as indicated. Continue nutritional support via tube feeds and physical therapy as tolerated. TIME: 32 minutes of critical care time, independent of procedures, was spent addressing the patient's acute hypoxemic respiratory failure secondary to COVID- 19 pneumonia, secondary bacterial pneumonia, review of all data and collaboration with the care team. Subjective Subjective Patient did okay overnight. No acute issues were reported. Patient was tolerating tube feeds, but these were held at midnight secondary to plans for a tracheostomy today. Patient is denying any pain at this time. FiO2 and PEEP have remained stable. Objective Data Objective Data Vital Signs: Vital Signs Temp Pulse Resp BP Pulse Ox 37.7 C H 117 H 20 H 108/65 96 09/03/21 07:00 09/03/21 07:00 09/03/21 07:00 09/03/21 07:00 09/03/21 07:00 Oxygen Flow Rate (L/min) 60 Oxygen Delivery Method Mechanical Ventilator Weight: 76.5 kg Body Mass Index (BMI) 30.4 Intake & Output: Intake and Output for Last 24 Hours 09/01/21 09/02/21 09/03/21 23:59 23:59 23:59 Intake Total 4580.92 / 4898.12 2663.39 / 2670.89 210.00 / 210.00 Output Total 1450 / 1750 1775 / 2325 1050 / 1050 Balance 3130.92 / 3148.12 888.39 / 345.89 -840.00 / -840.00 Medical Nutrition Assessment Dietitian: Malnutrition Criteria Met Start: 08/03/21 13:46 Freq: Status: Active Protocol: Document 09/02/21 09:16 YAEL (Rec: 09/02/21 09:16 YAEL [id number]) Nutrition Malnutrition Evidence of Malnutrition Exists Yes Malnutrition (severe): Acute Illness/Injury Evidenced By Suboptimal Energy Intake ( Severe),Weight Loss (Severe) Clinical Problem Acute Disease or Injury Related Malnutrition Etiology severe, acute malnutrition r/t inadequate energy intake d/t COVID-19 illness Signs/Symptoms as evidenced by unintentional wt loss of ~15.7% since adm ( adm wt 90.7kg) , estimated PO intake meeting <50% of 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 Shravan BID via PEG. Lab / Micro Data Result Diagrams: 09/03/21 04:30 09/03/21 04:30 Labs: Laboratory Results - last 24 hr 09/02/21 03:30: Absolute Neuts (auto) 10.4 H, Absolute Lymphs (auto) 0.63 L, Total Counted 100, Neutrophils % (Manual) 73 H, Band Neutrophils % 10 H, Lym phocytes % (Manual) 5 L, Monocytes % (Manual) 9, Metamyelocytes % 2 H, Myelocytes % 1 H, Diff Path Review December, Platelet Estimate ADEQUATE, RBC Morphology NORM C+C, Anisocytosis 1+ 09/03/21 04:30: WBC 10.8, RBC 4.08 L, Hgb 11.2 L, Hct 37.2 L, MCV 91.2, MCH 27.5, MCHC 30.1 L, RDW Std Deviation 50.6 H, RDW Coeff of Williams 15.4 H, Plt Count 257, MPV 9.9, Immature Gran % (Auto) 3.500 H, Neut % (Auto) 84.2 H, Lymph % (Auto) 5.1 L, [place] % (Auto) 6.2, Eos % (Auto) 0.4, Baso % (Auto) 0.6, Absolute Neuts (auto) 9.1 H, Absolute Lymphs (auto) 0.55 L, Nucleated RBC % 0.3 09/03/21 04:30: Sodium 149 H, Potassium 3.2 L, Chloride 108 H, Carbon Dioxide 38.0 H, Anion Gap 3 L, BUN 30 H, Creatinine 0.24 L, Estim Creat Clear Calc 68.40, Est GFR (MDRD) Af Amer 484, Est GFR (MDRD) Non-Af 400, BUN/Creatinine Ratio 122.4 H, Glucose 128 H, Calcium 8.5, Total Bilirubin 0.40, AST 30, ALT 88 H, Alkaline Phosphatase 60, Total Protein 6.1 L, Albumin 1.5 L, Globulin 4.6 H, Albumin/Globulin Ratio 0.3 L Micro: Microbiology 08/15/21 10:30 Interface Orders Gram Stain - Final 08/15/21 10:30 Interface Orders Respiratory Culture - Final Stenotrophomonas maltophilia 08/10/21 15:30 Sputum, Induced/Lukens Gram Stain - Final 08/10/21 15:30 Sputum, Induced/Lukens Respiratory Culture - Final Klebsiella pneumoniae sp pneum 08/03/21 18:00 Blood Culture (Wb) - Anticubital Left Blood Culture - Final No growth in 5 days. 08/03/21 20:20 Blood Culture (Wb) - Right Hand Blood Culture - Final No growth in 5 days. 08/03/21 01:00 Sputum, Expectorated/Coughed Gram Stain - Final 08/03/21 01:00 Sputum, Expectorated/Coughed Respiratory Culture - Final Mixed normal respiratory christina. No Streptococcus pneumoniae, beta-hemolytic Streptococcus or Staphylococcus aureus isolated. 08/03/21 13:33 Urine, Clean Catch Legionella Antigen - Final 08/03/21 13:33 Urine, Clean Catch Streptococcus pneumoniae Antigen (M - Final Physical Exam Const no apparent distress General Appearance: intubated and patient mechanically ventilated HEENT normocephalic and head/scalp atraumatic Mouth: endotracheal tube in place and OG tube in place Eyes PERRL Pupil: sluggish Neck supple General: trachea midline Chest inspection of chest normal Chest: symmetrical chest wall rise; Negative for crepitus Resp Auscultation: diminished lung sounds; Negative for rales, rhonchi or wheezes Cardio S1 normal heart sound and S2 normal heart sound Rate: tachycardic GI normal to inspection, nondistended, normoactive bowel sounds Inspection: GI tube present Extremity no clubbing, cyanosis or edema Skin no rashes or lesions noted Neuro Sensorium / Orientation: sedated on vent Charges/Coding Procedures Hospitalists Procedures: 60643 Critial Care 1st Hr
[2021-09-03] MEDS: Metoprolol Tartrate 50 MG Tablet GT ×2 (08:05→20:44)
--- NOTE | 2021-09-03 09:46 | PN.HOSP_ITS ---
Subjective Subjective Remains intubated but is not sedated. Plan is for tracheostomy today, no issues overnight Objective Data Objective Data Vital Signs: Vital Signs Temp Pulse Resp BP Pulse Ox 99.9 F H 112 H 20 H 108/65 96 09/03/21 07:00 09/03/21 08:05 09/03/21 07:00 09/03/21 07:00 09/03/21 07:00 Oxygen Flow Rate (L/min) 60 Oxygen Delivery Method Mechanical Ventilator Weight: 168 lb 10.458 oz Body Mass Index (BMI) 30.4 Intake & Output: Intake and Output for Last 24 Hours 09/02/21 09/03/21 09/04/21 03:59 03:59 03:59 Intake Total 4471.51 / 4606.51 2505.95 / 2510.70 94.75 / 94.75 Output Total 2024 / 2024 1750 / 1750 500 / 500 Balance 2446.51 / 2581.51 755.95 / 760.70 -405.25 / -405.25 Medical Nutrition Assessment Dietitian: Malnutrition Criteria Met Start: 08/03/21 13:46 Freq: Status: Active Protocol: Document 09/02/21 09:16 YAEL (Rec: 09/02/21 09:16 [facility] [id number]) Nutrition Malnutrition Evidence of Malnutrition Exists Yes Malnutrition (severe): Acute Illness/Injury Evidenced By Suboptimal Energy Intake ( Severe),Weight Loss (Severe) Clinical Problem Acute Disease or Injury Related Malnutrition Etiology severe, acute malnutrition r/t inadequate energy intake d/t COVID-19 illness Signs/Symptoms as evidenced by unintentional wt loss of ~15.7% since adm ( adm wt 90.7kg) , estimated PO intake meeting <50% of estimated nutritional needs >1 week CONTAMINATION CONSULTANT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 Shravan BID via PEG. Lab / Micro Data Result Diagrams: 09/03/21 04:30 09/03/21 04:30 Labs: Laboratory Results - last 24 hr 09/03/21 04:30: WBC 10.8, RBC 4.08 L, Hgb 11.2 L, Hct 37.2 L, MCV 91.2, MCH 27 .5, MCHC 30.1 L, RDW Std Deviation 50.6 H, RDW Coeff of Williams 15.4 H, Plt Count 257, MPV 9.9, Immature Gran % (Auto) 3.500 H, Neut % (Auto) 84.2 H, Lymph % (Auto) 5.1 L, [place] % (Auto) 6.2, Eos % (Auto) 0.4, Baso % (Auto) 0.6, Absolute Neuts (auto) 9.1 H, Absolute Lymphs (auto) 0.55 L, Nucleated RBC % 0.3 09/03/21 04:30: Sodium 149 H, Potassium 3.2 L, Chloride 108 H, Carbon Dioxide 38.0 H, Anion Gap 3 L, BUN 30 H, Creatinine 0.24 L, Estim Creat Clear Calc 68.40, Est GFR (MDRD) Af Amer 484, Est GFR (MDRD) Non-Af 400, BUN/Creatinine Ratio 122.4 H, Glucose 128 H, Calcium 8.5, Total Bilirubin 0.40, AST 30, ALT 88 H, Alkaline Phosphatase 60, Total Protein 6.1 L, Albumin 1.5 L, Globulin 4.6 H, Albumin/Globulin Ratio 0.3 L Micro: Microbiology 08/15/21 10:30 Interface Orders Gram Stain - Final 08/15/21 10:30 Interface Orders Respiratory Culture - Final Stenotrophomonas maltophilia 08/10/21 15:30 Sputum, Induced/Lukens Gram Stain - Final 08/10/21 15:30 Sputum, Induced/Lukens Respiratory Culture - Final Klebsiella pneumoniae sp pneum 08/03/21 18:00 Blood Culture (Wb) - Anticubital Left Blood Culture - Final No growth in 5 days. 08/03/21 20:20 Blood Culture (Wb) - Right Hand Blood Culture - Final No growth in 5 days. 08/03/21 01:00 Sputum, Expectorated/Coughed Gram Stain - Final 08/03/21 01:00 Sputum, Expectorated/Coughed Respiratory Culture - Final Mixed normal respiratory christina. No Streptococcus pneumoniae, beta-hemolytic Streptococcus or Staphylococcus aureus isolated. 08/03/21 13:33 Urine, Clean Catch Legionella Antigen - Final 08/03/21 13:33 Urine, Clean Catch Streptococcus pneumoniae Antigen (M - Final Physical Exam Const no apparent distress General Appearance: intubated and patient mechanically ventilated HEENT normocephalic and moist oral mucous membranes Eyes PERRL, EOMs intact bilaterally and conjunctivae normal Neck supple and no JVD Resp normal respiratory effort, no retractions and no use of accessory muscles Auscultation: diminished lung sounds; Negative for crackles, rales, rhonchi or wheezes Cardio regular rate, regular rhythm, S1 normal heart sound, S2 normal heart sound and no murmurs GI soft to palpation, non-tender and non-distended; Negative for hepatosplenomegaly GI Narrative: PEG tube Extremity no clubbing, cyanosis or edema Skin no rashes or lesions noted Neuro no focal motor deficits and no sensory deficits noted Psych Mood & Affect: flat affect Assessment & Plan Assessment/Plan (1) Pneumonia due to COVID-19 virus: (2) Acute respiratory failure with hypoxia: PLAN: 1. Acute hypoxic respiratory failure secondary to COVID-19 pneumonia ?He has completed remdesivir, Decadron and baricitinib ?He has received a PEG tube and is planning for a tracheostomy today ?We will likely need discharge planning to an LTAC in the next several days 2. HTN/history of CVA ?Continue with aspirin, metoprolol ?Blood pressures do appear stable, his home blood pressure occasions DVT: Therapeutic Lovenox Charges/Coding Visit Charges Inpatient E&M: 27737 Subs Hosp L2
[2021-09-03] MEDS: CHLORHEXIDINE GLUC 2% CLOTH 1 EACH TOWELETTE TOPICAL (10:00)
[2021-09-03] MEDS: Chlorhexidine 15 ML PO ×2 (10:00→21:00)
--- NOTE | 2021-09-03 10:50 | NURSING ---
Leaving floor w/ OR staff for tracheostomy
--- NOTE | 2021-09-03 11:49 | RAD_ITS ---
STUDY: X-RAY CHEST REASON FOR EXAM: Male, 66 years old. s/p tracheotomy. Evaluate for pneumothorax TECHNIQUE: Single AP portable view of the chest. COMPARISON: Comparison is made with prior examination of 08/27/2021. FINDINGS: The patient is status post tracheostomy. The tip of the tracheostomy tube is at 6.2 cm proximal to the li. Persistent bilateral pulmonary infiltrates worse at the left lung base although there has been a moderate degree of improvement as compared to prior study. No evidence of pneumothorax. Normal size heart. Normal mediastinum and jesus. Normal visualized pulmonary arteries. Normal visualized aortic arch and descending thoracic aorta. There are diffuse degenerative changes of the visualized thoracic spine. Normal visualized ribs, clavicles, and shoulders. There is no demonstrated abnormality of the visualized soft tissue structures of the upper abdomen. RAD/Chest 1 View (Portable) IMPRESSION: Status post tracheostomy placement. No evidence pneumothorax. Residual bilateral pulmonary infiltrates although has been a moderate degree of improvement as compared to prior study. Electronically Signed: Mark Chung MD at 13:27 EST , Service support ,
--- NOTE | 2021-09-03 11:54 | OP.PCM_ITS ---
Report of Operation Date of Procedure: 09/03/21 Pre-Operative Diagnosis: respiratory failure Post-Operative Diagnosis: same Surgery/Procedure Performed:: tracheotomy Surgeon: Charbel Douglas Type of Anesthesia: General Anesthesiologist: Torrey Santana Estimated Blood Loss (mL): minimal Description of Procedure: The patient was taken to the operating room 09/03/2021. He was placed in supine position on the operating room table. He was given sufficient general anesthesia. The neck was prepped and draped sterilely. 1% lidocaine with epinephrine injected into the skin overlying the intended surgical incision site. An incision was made with 15 blade. This was carried down through to the subcutaneous tissue. Subcutaneous lipectomy was then performed using Bovie cautery. The midline raphae was identified. The strap muscles were lateralized with Allis clamps. The cricoid cartilage was identified. A cricoid hook was used to the superiorize the trachea. I moved the thyroid isthmus inferiorly with dental rolls. I clamped and cut a small amount of the thyroid isthmus and suture ligated it with 2-0 chromic. Incisions were made in the trachea with a 15 blade and the anterior aspect of the second tracheal ring was removed with Espinosa scissors. The third tracheal ring was split. A trach skating rink manager was used. A #8 Shiley cuffed tracheotomy tube was inserted into the trachea (#[id number]). The inner cannula was placed and the cuff was inflated. The anesthesia circuit was hooked to the tracheotomy tube and immediate visualization of CO2 was seen. The tracheotomy was sewn to the skin with 3-0 silk. Trach ties were placed around the patient's neck and the tracheotomy was tied as well. He was removed from the OR in stable condition. Blood loss minimal, replacement none. Sponge, needle and instrument count were correct at the end of the procedure.
--- NOTE | 2021-09-03 12:15 | NURSING ---
Returned from OR, No complications reported, vitals stable
[2021-09-03 13:37] LABS: Pathologist Review Reviewed
--- NOTE | 2021-09-03 14:41 | CASEMGMT ---
TYLER CASTILLO [place] and [place] [facility] [place]ER [place]STILLO faxed updated clinical information to Ryne. Anticipated discharge to [facility] for Friday. ANNA will continue to follow this patient and plan for a safe discharge.
[2021-09-03] MEDS: Juven (unflavored) Packet 1 PACKET GT (17:39)
[2021-09-03] MEDS: Senna/Docusate Sodium 1 Tablet 2 TABLET GT (20:44)
[2021-09-04] VITALS (39 sets, daily range): BP systolic 99–163; BP diastolic 47–75; PULSE 95–131; RESP 14–34; TEMP 37.9–38.9; O2SAT 89–95
[2021-09-04] MEDS: Glycerin/Hypromellose/PEG400 15 ml Bottle 1 DRP EACH EYE ×6 (02:35→21:55)
[2021-09-04 03:30] LABS: Absolute Lymphocyte Count 0.66 X10^3/uL (0.83-4.51); Absolute Neutrophil Count 15.1 X10^3/uL (2.0-7.7); Basophil# 0.02 X10^3/uL; Basophil% 0.1 % (0-1); Eosinophil# 0.01 X10^3/uL; Eosinophils% 0.1 % (0-5); Hematocrit 30.2 % (40-54); Lymphocyte # 0.66 X10^3/ul (0.83-4.51); Lymphocyte % 3.9 % (19-41); Mean Corp Hgb Conc 29.8 g/dL (32-36); Mean Corpuscular Hgb 27.7 pg (27.0-32.0); Mean Corpuscular Volume 92.9 fL (80-94); Mean Platelet Vol. 10.3 fl (6.2-12.0); Monocyte# 0.82 X10^3/uL; Monocyte% 4.8 % (0-10); NRBC Flagged by Analyzer 0.1 % (0-5); Neutrophil # 15.13 X10^3/uL (2.7-7.7); Neutrophil % 89.4 % (47-70); Platelet Count 272 K/mm3 (150-450); RBC Distribution Width SD 53.7 fl (35.1-43.9); Red Blood Count 3.25 M/mm3 (4.6-6.2); White Blood Count 16.9 K/mm3 (4.4-11.0)
[2021-09-04 03:46] LABS: ALB/GLOB Ratio 0.3 RATIO (0.9-2.4); AST(SGOT) 36 U/L (15-37); Alanine Aminotransfer ALT/SGPT 100 U/L (16-61); Albumin, Serum 1.4 g/dL (3.2-5.0); Alkaline Phosphatase 81 U/L (45-117); Anion Gap 1 (5-15); BUN 30 mg/dL (7-18); BUN/Creat Ratio 92.9 RATIO (10-20); Calcium,Total 8.5 mg/dL (8.5-10.1); Chloride 109 mmol/L (98-107); Creatinine, Serum 0.32 mg/dL (0.70-1.30); EST Glomerular Filtration Rate 291 mL/min (>60); Est Glom Filt Rate - Afr Amer 352 mL/min (>60); Globulin 4.9 g/dL (2.2-4.2); Glucose 174 mg/dL (74-106); Potassium 3.2 mmol/L (3.5-5.1); Protein, Total 6.3 g/dL (6.4-8.2); Sodium Level 149 mmol/L (136-145)
[2021-09-04] MEDS: Acetaminophen 650 MG/20 ML UDC PO ×3 (06:26→21:59)
[2021-09-04] MEDS: guaiFENesin 10 ML UDC (200MG/10ML) 20 ML GT ×4 (06:26→23:43)
[2021-09-04] MEDS: Enoxaparin 80 MG/0.8 ML Syringe SC ×2 (06:26→17:29)
[2021-09-04] MEDS: AcetaZOLAMIDE 500 MG/10 ML Vial 250 MG IV (06:27)
[2021-09-04] MEDS: Menthol/Lanolin/Calamine/Znox 113 GM Tube 1 APPLIC TOPICAL ×3 (06:27→21:54)
[2021-09-04] MEDS: Ipratropium/Albuterol Sulfate 3 ML AMPUL.NEB INHALATION ×3 (07:27→18:38)
--- NOTE | 2021-09-04 07:58 | PN.CC_ITS ---
Assessment & Plan Assessment/Plan (1) Acute respiratory failure with hypoxia: (2) Pneumonia due to COVID-19 virus: PLAN: RECOMMENDATIONS: 1. Continue to wean FiO2 to maintain oxygen saturations at or above 90%. 2. Reinitiate Lovenox if okay with ENT 3. Possibly increase free water if sodium continues to climb. Replete potassium as necessary 4. Continue appropriate GI prophylaxis. 5. Continue tube feeds 6. Await placement 7. Discharge planning for LTAC. Likely okay to go in the next 24 hours IMPRESSIONS: 1. Acute hypoxemic respiratory failure secondary to COVID-19 pneumonia The patient initially presented to the hospital with worsening shortness of breath and hypoxemia. The patient has completed treatment courses of remdesivir, decadron and partial course of baricitinib. Ultimately, the patient continued to decompensate from a respiratory perspective and had to be intubated on August 10. Sputum culture was positive for Klebsiella and stenotrophomonas, for which the patient completed an antibiotic treatment course. Plan to continue to wean FiO2 and PEEP as tolerated for saturations greater than 90%, but appears to have stabilized on the current settings. The patient responded from an oxygenation perspective to diuresis. Patient tolerated trach well. Reinitiate Lovenox if okay with ENT 2. Obesity/hypertension/self-reported asthma/prior CVA Complicates care, management, recovery and prognosis. Continue home medications as indicated. Continue nutritional support via tube feeds and physical therapy as tolerated. Subjective Subjective Patient did okay overnight. No acute issues were noted after initiation of tube feeds. Pain has been well controlled on the fentanyl drip. Slight bruising has been noted from the trach, but no obvious bleeding. Secretions have not been an issue. Objective Data Objective Data Vital Signs: Vital Signs Temp Pulse Resp BP Pulse Ox 38.1 C H 121 H 25 H 163/67 H 92 09/04/21 06:00 09/04/21 07:28 09/04/21 07:28 09/04/21 07:00 09/04/21 07:28 Oxygen Flow Rate (L/min) 60 Oxygen Delivery Method Mechanical Ventilator Weight: 75.2 kg Body Mass Index (BMI) 25.6 Intake & Output: Intake and Output for Last 24 Hours 09/02/21 09/03/21 09/04/21 23:59 23:59 23:59 Intake Total 2663.39 / 2670.89 2284.63 / 2292.13 54.12 / 54.12 Output Total 1775 / 2325 2175 / 2175 550 / 550 Balance 888.39 / 345.89 109.63 / 117.13 -495.88 / -495.88 Medical Nutrition Assessment Dietitian: Malnutrition Criteria Met Start: 08/03/21 13:46 Freq: Status: Active Protocol: Document 09/03/21 11:31 YAEL (Rec: 09/03/21 11:31 [facility] [id number]) Nutrition Malnutrition Evidence of Malnutrition Exists Yes Malnutrition (severe): Acute Illness/Injury Evidenced By Suboptimal Energy Intake ( Severe),Weight Loss (Severe) Clinical Problem Acute Disease or Injury Related Malnutrition Etiology severe, acute malnutrition r/t inadequate energy intake d/t COVID-19 illness Signs/Symptoms as evidenced by unintentional wt loss of ~15.7% since adm ( adm wt 90.7kg) , estimated PO intake meeting <50% of estimated nutritional needs >1 week COMMUNITY AMBASSADOR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 Shravan BID via PEG. Lab / Micro Data Result Diagrams: 09/04/21 03:10 09/04/21 03:10 Labs: Laboratory Results - last 24 hr 09/02/21 03:30: Diff Path Review Reviewed 09/04/21 03:10: WBC 16.9 H, RBC 3.25 L, Hgb 9.0 L, Hct 30.2 L, MCV 92.9, MCH 27.7, MCHC 29.8 L, RDW Std Deviation 53.7 H, RDW Coeff of Williams 16.0 H, Plt Count 272, MPV 10.3, Immature Gran % (Auto) 1.700 H, Neut % (Auto) 89.4 H, Lymph % (Auto) 3.9 L, [place] % (Auto) 4.8, Eos % (Auto) 0.1, Baso % (Auto) 0.1, Absolute Neuts (auto) 15.1 H, Absolute Lymphs (auto) 0.66 L, Nucleated RBC % 0.1 09/04/21 03:10: Sodium 149 H, Potassium 3.2 L, Chloride 109 H, Carbon Dioxide 39 .0 H, Anion Gap 1 L, BUN 30 H, Creatinine 0.32 L, Estim Creat Clear Calc 68.40, Est GFR (MDRD) Af Amer 352, Est GFR (MDRD) Non-Af 291, BUN/Creatinine Ratio 92.9 H, Glucose 174 H, Calcium 8.5, Total Bilirubin 0.30, AST 36, ALT 100 H, Alkaline Phosphatase 81, Total Protein 6.3 L, Albumin 1.4 L, Globulin 4.9 H, Albumin/Globulin Ratio 0.3 L Micro: Microbiology 08/15/21 10:30 Interface Orders Gram Stain - Final 08/15/21 10:30 Interface Orders Respiratory Culture - Final Stenotrophomonas maltophilia 08/10/21 15:30 Sputum, Induced/Lukens Gram Stain - Final 08/10/21 15:30 Sputum, Induced/Lukens Respiratory Culture - Final Klebsiella pneumoniae sp pneum 08/03/21 18:00 Blood Culture (Wb) - Anticubital Left Blood Culture - Final No growth in 5 days. 08/03/21 20:20 Blood Culture (Wb) - Right Hand Blood Culture - Final No growth in 5 days. 08/03/21 01:00 Sputum, Expectorated/Coughed Gram Stain - Final 08/03/21 01:00 Sputum, Expectorated/Coughed Respiratory Culture - Final Mixed normal respiratory christina. No Streptococcus pneumoniae, beta-hemolytic Streptococcus or Staphylococcus aureus isolated. 08/03/21 13:33 Urine, Clean Catch Legionella Antigen - Final 08/03/21 13:33 Urine, Clean Catch Streptococcus pneumoniae Antigen (M - Final Radiography Diagnostic Testing: Radiology Impression Chest X-Ray 09/03/21 11:49 IMPRESSION: Status post tracheostomy placement. No evidence pneumothorax. Residual bilateral pulmonary infiltrates although has been a moderate degree of improvement as compared to prior study. Electronically Signed: Mark Chung MD at 13:27 EST , Service support , Physical Exam Const no apparent distress General Appearance: intubated and patient mechanically ventilated HEENT normocephalic and head/scalp atraumatic Eyes PERRL Pupil: sluggish Neck supple General: trachea midline and tracheostomy present Chest inspection of chest normal Chest: symmetrical chest wall rise; Negative for crepitus Resp Auscultation: diminished lung sounds; Negative for rales, rhonchi or wheezes Cardio S1 normal heart sound and S2 normal heart sound Rate: tachycardic GI normal to inspection, nondistended, normoactive bowel sounds Inspection: GI tube present Extremity no clubbing, cyanosis or edema Skin no rashes or lesions noted Neuro Neuro Narrative: Global weakness with nonfocal exam Charges/Coding Visit Charges Inpatient E&M: 50552 Subs Hosp L3
[2021-09-04] MEDS: Aspirin 325 MG Tablet GT (10:29)
[2021-09-04] MEDS: Juven (unflavored) Packet 1 PACKET GT ×2 (10:29→17:29)
[2021-09-04] MEDS: Chlorhexidine 15 ML PO ×2 (10:29→21:55)
[2021-09-04] MEDS: Losartan Potassium 100 MG Tablet GT (10:29)
[2021-09-04] MEDS: Potassium Chloride Oral Soln 20 MEQ/15 ML UDC 40 MEQ PO ×2 (10:30→21:53)
[2021-09-04] MEDS: Metoprolol Tartrate 50 MG Tablet GT ×2 (10:30→21:53)
[2021-09-04] MEDS: Senna/Docusate Sodium 1 Tablet 2 TABLET GT ×2 (10:30→21:53)
[2021-09-04] MEDS: oxyCODONE 5 MG Tablet GT ×2 (10:35→17:29)
--- NOTE | 2021-09-04 11:35 | PN.HOSP_ITS ---
Subjective Subjective Doing well, no issues overnight. Tolerating the trach well in no significant bleeding has been noted Objective Data Objective Data Vital Signs: Vital Signs Temp Pulse Resp BP Pulse Ox 100.6 F H 120 H 27 H 159/75 H 91 09/04/21 06:00 09/04/21 11:06 09/04/21 11:06 09/04/21 10:30 09/04/21 11:06 Oxygen Flow Rate (L/min) 60 Oxygen Delivery Method Mechanical Ventilator Weight: 165 lb 12.602 oz Body Mass Index (BMI) 25.6 Intake & Output: Intake and Output for Last 24 Hours 09/03/21 09/04/21 09/05/21 03:59 03:59 03:59 Intake Total 2505.95 / 2510.70 2131.88 / 2139.38 134.12 / 134.12 Output Total 1750 / 1750 1625 / 1625 550 / 550 Balance 755.95 / 760.70 506.88 / 514.38 -415.88 / -415.88 Medical Nutrition Assessment Dietitian: Malnutrition Criteria Met Start: 08/03/21 13:46 Freq: Status: Active Protocol: Document 09/04/21 10:56 AG (Rec: 09/04/21 11:23 AG [id number]) Nutrition Malnutrition Evidence of Malnutrition Exists Yes Malnutrition (severe): Acute Illness/Injury Evidenced By Suboptimal Energy Intake ( Severe),Weight Loss (Severe) Clinical Problem Acute Disease or Injury Related Malnutrition Etiology severe, acute malnutrition r/t inadequate energy intake d/t COVID-19 illness Signs/Symptoms as evidenced by unintentional wt loss of 15.5kg/17% since admission, estimated PO intake meeting <50% of estimated nutritional needs >1 week EDITORIAL ASSISTANT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 Shravan BID via PEG. Lab / Micro Data Result Diagrams: 09/04/21 03:10 09/04/21 03:10 Labs: Laboratory Results - last 24 hr 09/02/21 03:30: Diff Path Review Reviewed 09/04/21 03:10: WBC 16.9 H, RBC 3.25 L, Hgb 9.0 L, Hct 30.2 L, MCV 92.9, MCH 27.7, MCHC 29.8 L, RDW Std Deviation 53.7 H, RDW Coeff of Williams 16.0 H, Plt Count 272, MPV 10.3, Immature Gran % (Auto) 1.700 H, Neut % (Auto) 89.4 H, Lymph % (Auto) 3.9 L, [place] % (Auto) 4.8, Eos % (Auto) 0.1, Baso % (Auto) 0.1, Absolute Neuts (auto) 15.1 H, Absolute Lymphs (auto) 0.66 L, Nucleated RBC % 0.1 09/04/21 03:10: Sodium 149 H, Potassium 3.2 L, Chloride 109 H, Carbon Dioxide 39.0 H, Anion Gap 1 L, BUN 30 H, Creatinine 0.32 L, Estim Creat Clear Calc 68.40, Est GFR (MDRD) Af Amer 352, Est GFR (MDRD) Non-Af 291, BUN/Creatinine Ratio 92.9 H, Glucose 174 H, Calcium 8.5, Total Bilirubin 0.30, AST 36, ALT 100 H, Alkaline Phosphatase 81, Total Protein 6.3 L, Albumin 1.4 L, Globulin 4.9 H, Albumin/Globulin Ratio 0.3 L Micro: Microbiology 08/15/21 10:30 Interface Orders Gram Stain - Final 08/15/21 10:30 Interface Orders Respiratory Culture - Final Stenotrophomonas maltophilia 08/10/21 15:30 Sputum, Induced/Lukens Gram Stain - Final 08/10/21 15:30 Sputum, Induced/Lukens Respiratory Culture - Final Klebsiella pneumoniae sp pneum 08/03/21 18:00 Blood Culture (Wb) - Anticubital Left Blood Culture - Final No growth in 5 days. 08/03/21 20:20 Blood Culture (Wb) - Right Hand Blood Culture - Final No growth in 5 days. 08/03/21 01:00 Sputum, Expectorated/Coughed Gram Stain - Final 08/03/21 01:00 Sputum, Expectorated/Coughed Respiratory Culture - Final Mixed normal respiratory christina. No Streptococcus pneumoniae, beta-hemolytic Streptococcus or Staphylococcus aureus isolated. 08/03/21 13:33 Urine, Clean Catch Legionella Antigen - Final 08/03/21 13:33 Urine, Clean Catch Streptococcus pneumoniae Antigen (M - Final Radiography Diagnostic Testing: Radiology Impression Chest X-Ray 09/03/21 11:49 IMPRESSION: Status post tracheostomy placement. No evidence pneumothorax. Residual bilateral pulmonary infiltrates although has been a moderate degree of improvement as compared to prior study. Electronically Signed: Mark Chung MD at 13:27 EST , Service support , Physical Exam Const no apparent distress HEENT normocephalic and moist oral mucous membranes Eyes PERRL, EOMs intact bilaterally and conjunctivae normal Neck supple and no JVD Neck Narrative: Trach place Resp normal respiratory effort, no retractions and no use of accessory muscles Auscultation: diminished lung sounds; Negative for crackles, rales, rhonchi or wheezes Cardio regular rate, regular rhythm, S1 normal heart sound, S2 normal heart sound and no murmurs GI soft to palpation, non-tender and non-distended; Negative for hepatosplenomegaly GI Narrative: PEG tube Extremity no clubbing, cyanosis or edema Skin no rashes or lesions noted Neuro no focal motor deficits and no sensory deficits noted Psych Mood & Affect: flat affect Assessment & Plan Assessment/Plan (1) Pneumonia due to COVID-19 virus: (2) Acute respiratory failure with hypoxia: PLAN: 1. Acute hypoxic respiratory failure secondary to COVID-19 pneumonia ?He has completed remdesivir, Decadron and baricitinib ?He has received a PEG tube, had a successful trach on 09/03/2021 ?We will likely need discharge planning to an LTAC in the next several days 2. HTN/history of CVA ?Continue with aspirin, metoprolol ?Blood pressures do appear stable, his home blood pressure occasions DVT: Therapeutic Lovenox Charges/Coding Visit Charges Inpatient E&M: 25167 Subs Hosp L2
[2021-09-04] MEDS: CHLORHEXIDINE GLUC 2% CLOTH 1 EACH TOWELETTE TOPICAL (12:47)
[2021-09-04] MEDS: Vital AF 1.2 Cal Liquid 1,000 ML 70 ML GT (13:10)
--- NOTE | 2021-09-04 14:48 | CASEMGMT ---
RN CM called and left message for Ryne at [facility] to confirm discharge for tomorrow for LTACH. RN CM called and updated Erin with tentative plan for discharge to Ltach tomorow. CM will continue to follow this patient and plan for a safe discharge.
--- NOTE | 2021-09-04 19:13 | WOUNDNOTE ---
wound photo: sacrum
[2021-09-05] VITALS (36 sets, daily range): BP systolic 81–168; BP diastolic 47–70; PULSE 91–130; RESP 16–35; TEMP 37.4–38.9; O2SAT 89–97
[2021-09-05] MEDS: oxyCODONE 5 MG Tablet GT (01:49)
[2021-09-05] MEDS: Glycerin/Hypromellose/PEG400 15 ml Bottle 1 DRP EACH EYE ×6 (01:49→22:30)
[2021-09-05 04:02] LABS: Absolute Lymphocyte Count 0.84 X10^3/uL (0.83-4.51); Absolute Neutrophil Count 14.1 X10^3/uL (2.0-7.7); Basophil# 0.05 X10^3/uL; Basophil% 0.3 % (0-1); Eosinophil# 0.01 X10^3/uL; Eosinophils% 0.1 % (0-5); Hematocrit 30.3 % (40-54); Hemoglobin 8.8 g/dL (13.0-16.5); Lymphocyte # 0.84 X10^3/ul (0.83-4.51); Lymphocyte % 5.2 % (19-41); Mean Corpuscular Hgb 27.6 pg (27.0-32.0); Mean Platelet Vol. 10.2 fl (6.2-12.0); Monocyte# 0.79 X10^3/uL; Monocyte% 4.9 % (0-10); NRBC Flagged by Analyzer 0 % (0-5); Neutrophil # 14.11 X10^3/uL (2.7-7.7); Neutrophil % 87.7 % (47-70); Platelet Count 279 K/mm3 (150-450); RBC Distribution Width CV 15.9 % (11.6-14.6); Red Blood Count 3.19 M/mm3 (4.6-6.2); White Blood Count 16.1 K/mm3 (4.4-11.0)
[2021-09-05 04:22] LABS: ALB/GLOB Ratio 0.3 RATIO (0.9-2.4); AST(SGOT) 25 U/L (15-37); Alanine Aminotransfer ALT/SGPT 84 U/L (16-61); Albumin, Serum 1.3 g/dL (3.2-5.0); Alkaline Phosphatase 88 U/L (45-117); Anion Gap 3 (5-15); BUN 31 mg/dL (7-18); BUN/Creat Ratio 93.7 RATIO (10-20); Calcium,Total 8.6 mg/dL (8.5-10.1); Chloride 112 mmol/L (98-107); Creatinine, Serum 0.33 mg/dL (0.70-1.30); EST Glomerular Filtration Rate 283 mL/min (>60); Est Glom Filt Rate - Afr Amer 342 mL/min (>60); Globulin 5.1 g/dL (2.2-4.2); Glucose 163 mg/dL (74-106); Potassium 3.6 mmol/L (3.5-5.1); Protein, Total 6.4 g/dL (6.4-8.2); Sodium Level 150 mmol/L (136-145)
[2021-09-05] MEDS: Enoxaparin 80 MG/0.8 ML Syringe SC ×2 (05:13→20:44)
[2021-09-05] MEDS: guaiFENesin 10 ML UDC (200MG/10ML) 20 ML GT (05:13)
[2021-09-05] MEDS: Acetaminophen 650 MG/20 ML UDC PO ×3 (05:13→22:30)
[2021-09-05] MEDS: Menthol/Lanolin/Calamine/Znox 113 GM Tube 1 APPLIC TOPICAL ×3 (05:13→20:47)
[2021-09-05] MEDS: Potassium Chloride Oral Soln 20 MEQ/15 ML UDC 40 MEQ GT (06:14)
[2021-09-05] MEDS: Ipratropium/Albuterol Sulfate 3 ML AMPUL.NEB INHALATION ×3 (06:51→19:05)
[2021-09-05] MEDS: oxyCODONE 5 MG Tablet PO (06:58)
--- NOTE | 2021-09-05 07:09 | PN.CC_ITS ---
Assessment & Plan Assessment/Plan (1) Acute respiratory failure with hypoxia: (2) Pneumonia due to COVID-19 virus: PLAN: RECOMMENDATIONS: 1. Continue to wean FiO2 to maintain oxygen saturations at or above 90%. 2. Continue prophylactic Lovenox 3. Increase free water flushes. Replete potassium as necessary 4. Continue appropriate GI prophylaxis. 5. Continue tube feeds 6. Await placement 7. Discharge planning for LTAC possibly later today. IMPRESSIONS: 1. Acute hypoxemic respiratory failure secondary to COVID-19 pneumonia The patient initially presented to the hospital with worsening shortness of breath and hypoxemia. The patient has completed treatment courses of remdesivir, decadron and partial course of baricitinib. Ultimately, the patient continued to decompensate from a respiratory perspective and had to be intubated on August 10. Sputum culture was positive for Klebsiella and stenotrophomona s, for which the patient completed an antibiotic treatment course. Plan to continue to wean FiO2 and PEEP as tolerated for saturations greater than 90%, but appears to have stabilized on the current settings. The patient responded from an oxygenation perspective to diuresis. Patient tolerated trach well. Reinitiated Lovenox 2. Obesity/hypertension/self-reported asthma/prior CVA Complicates care, management, recovery and prognosis. Continue home medications as indicated. Continue nutritional support via tube feeds and physical therapy as tolerated. Subjective Subjective Patient did okay overnight. Patient has been able to tolerate tube feeds. No bowel movements have been noted. Patient did have a fever overnight, but this morning is nodding his head to being in pain. Objective Data Objective Data Vital Signs: Vital Signs Temp Pulse Resp BP Pulse Ox 37.7 C H 100 16 141/69 H 91 09/05/21 07:00 09/05/21 07:00 09/05/21 07:00 09/05/21 07:00 09/05/21 07:00 Oxygen Flow Rate (L/min) 60 Oxygen Delivery Method Mechanical Ventilator Weight: 75.9 kg Body Mass Index (BMI) 25.6 Intake & Output: Intake and Output for Last 24 Hours 09/03/21 09/04/21 09/05/21 23:59 23:59 23:59 Intake Total 2284.63 / 2292.13 3370.12 / 3520.12 300 / 300 Output Total 2175 / 2175 1850 / 2400 1100 / 1100 Balance 109.63 / 117.13 1520.12 / 1120.12 -800 / -800 Medical Nutrition Assessment Dietitian: Malnutrition Criteria Met Start: 08/03/21 13:46 Freq: Status: Active Protocol: Document 09/04/21 10:56 AG (Rec: 09/04/21 11:23 AG [id number]) Nutrition Malnutrition Evidence of Malnutrition Exists Yes Malnutrition (severe): Acute Illness/Injury Evidenced By Suboptimal Energy Intake ( Severe),Weight Loss (Severe) Clinical Problem Acute Disease or Injury Related Malnutrition Etiology severe, acute malnutrition r/t inadequate energy intake d/t COVID-19 illness Signs/Symptoms as evidenced by unintentional wt loss of 15.5kg/17% since admission, estimated PO intake meeting <50% of estimated nutritional needs >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 Shravan BID via PEG. Lab / Micro Data Result Diagrams: 09/05/21 03:50 09/05/21 03:50 Labs: Laboratory Results - last 24 hr 09/05/21 03:50: WBC 16.1 H, RBC 3.19 L, Hgb 8.8 L, Hct 30.3 L, MCV 95.0 H, MCH 27.6, MCHC 29.0 L, RDW Std Deviation 54.0 H, RDW Coeff of Williams 15.9 H, Plt Count 279, MPV 10.2, Immature Gran % (Auto) 1.800 H, Neut % (Auto) 87.7 H, Lymph % (Auto) 5.2 L, [place] % (Auto) 4.9, Eos % (Auto) 0.1, Baso % (Auto) 0.3, Absolute Neuts (auto) 14.1 H, Absolute Lymphs (auto) 0.84, Nucleated RBC % 0 09/05/21 03:50: Sodium 150 H, Potassium 3.6, Chloride 112 H, Carbon Dioxide 35.0 H, Anion Gap 3 L, BUN 31 H, Creatinine 0.33 L, Estim Creat Clear Calc 68.40, Est GFR (MDRD) Af Amer 342, Est GFR (MDRD) Non-Af 283, BUN/Creatinine Ratio 93.7 H, Glucose 163 H, Calcium 8.6, Total Bilirubin 0.20, AST 25, ALT 84 H, Alkaline Phosphatase 88, Total Protein 6.4, Albumin 1.3 L, Globulin 5.1 H, Albumin/Globulin Ratio 0.3 L Micro: Microbiology 08/15/21 10:30 Interface Orders Gram Stain - Final 08/15/21 10:30 Interface Orders Respiratory Culture - Final Stenotrophomonas maltophilia 08/10/21 15:30 Sputum, Induced/Lukens Gram Stain - Final 08/10/21 15:30 Sputum, Induced/Lukens Respiratory Culture - Final Klebsiella pneumoniae sp pneum 08/03/21 18:00 Blood Culture (Wb) - Anticubital Left Blood Culture - Final No growth in 5 days. 08/03/21 20:20 Blood Culture (Wb) - Right Hand Blood Culture - Final No growth in 5 days. 08/03/21 01:00 Sputum, Expectorated/Coughed Gram Stain - Final 08/03/21 01:00 Sputum, Expectorated/Coughed Respiratory Culture - Final Mixed normal respiratory christina. No Streptococcus pneumoniae, beta-hemolytic Streptococcus or Staphylococcus aureus isolated. 08/03/21 13:33 Urine, Clean Catch Legionella Antigen - Final 08/03/21 13:33 Urine, Clean Catch Streptococcus pneumoniae Antigen (M - Final Physical Exam Const no apparent distress General Appearance: patient mechanically ventilated HEENT normocephalic and head/scalp atraumatic Eyes PERRL Pupil: sluggish Neck supple General: trachea midline and tracheostomy present Chest inspection of chest normal Chest: symmetrical chest wall rise; Negative for crepitus Resp Auscultation: diminished lung sounds; Negative for rales, rhonchi or wheezes Cardio S1 normal heart sound and S2 normal heart sound Rate: tachycardic GI normal to inspection, nondistended, normoactive bowel sounds Inspection: GI tube present Extremity no clubbing, cyanosis or edema Skin no rashes or lesions noted Neuro Neuro Narrative: Global weakness with nonfocal exam Charges/Coding Visit Charges Inpatient E&M: 00582 Subs Hosp L2
[2021-09-05] MEDS: Juven (unflavored) Packet 1 PACKET GT ×2 (09:55→16:47)
[2021-09-05] MEDS: Senna/Docusate Sodium 1 Tablet 2 TABLET GT ×2 (09:56→20:47)
[2021-09-05] MEDS: Metoprolol Tartrate 50 MG Tablet GT ×2 (09:56→20:44)
[2021-09-05] MEDS: Chlorhexidine 15 ML PO ×2 (09:56→20:46)
[2021-09-05] MEDS: Losartan Potassium 100 MG Tablet GT (09:56)
[2021-09-05] MEDS: Aspirin 325 MG Tablet GT (09:56)
[2021-09-05] MEDS: 0.9% Saline Lock 10 ML Syringe IV (09:57)
--- NOTE | 2021-09-05 11:26 | CASEMGMT ---
TYLER CM NOTE: Per Dr Kebede, pt is medically ready for discharged. TC to Ryne @ [facility] and he was made aware. Per Ryne, they now do not have beds available d/t a delay in discharge for some of their current pt's. Per Ryne, pt is listed as priority on their admissions, and he states is hopeful a bed will be available in the next 1-2 days. Updated clinicals faxed to [facility] at this time. Ryne's Direct #: [phone]. Tammy COOLN RN CM
--- NOTE | 2021-09-05 12:22 | PN.HOSP_ITS ---
Subjective Subjective Did have a slight fever overnight but otherwise no new issues Objective Data Objective Data Vital Signs: Vital Signs Temp Pulse Resp BP Pulse Ox 100 F H 115 H 16 100/51 L 91 09/05/21 07:00 09/05/21 09:56 09/05/21 07:00 09/05/21 09:56 09/05/21 07:00 Oxygen Flow Rate (L/min) 60 Oxygen Delivery Method Mechanical Ventilator Weight: 167 lb 5.294 oz Body Mass Index (BMI) 25.6 Intake & Output: Intake and Output for Last 24 Hours 09/04/21 09/05/21 09/06/21 03:59 03:59 03:59 Intake Total 2131.88 / 2139.38 3490.12 / 3640.12 350 / 350 Output Total 1625 / 1625 2400 / 2400 550 / 550 Balance 506.88 / 514.38 1090.12 / 1240.12 -200 / -200 Medical Nutrition Assessment Dietitian: Malnutrition Criteria Met Start: 08/03/21 13: 46 Freq: Status: Active Protocol: Document 09/05/21 10:23 (Rec: 09/05/21 10:23 [id number]) Nutrition Malnutrition Evidence of Malnutrition Exists Yes Malnutrition (severe): Acute Illness/Injury Evidenced By Suboptimal Energy Intake ( Severe),Weight Loss (Severe) Clinical Problem Acute Disease or Injury Related Malnutrition Etiology severe, acute malnutrition r/t inadequate energy intake d/t COVID-19 illness Signs/Symptoms as evidenced by unintentional wt loss of 14.8kg/16.3% since admission, estimated PO intake meeting <50% of estimated nutritional needs >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 Shravan BID via PEG. Lab / Micro Data Result Diagrams: 09/05/21 03:50 09/05/21 03:50 Labs: Laboratory Results - last 24 hr 09/05/21 03:50: WBC 16.1 H, RBC 3.19 L, Hgb 8.8 L, Hct 30.3 L, MCV 95.0 H, MCH 27.6, MCHC 29.0 L, RDW Std Deviation 54.0 H, RDW Coeff of Williams 15.9 H, Plt Count 279, MPV 10.2, Immature Gran % (Auto) 1.800 H, Neut % (Auto) 87.7 H, Lymph % (Auto) 5.2 L, [place] % (Auto) 4.9, Eos % (Auto) 0.1, Baso % (Auto) 0.3, Absolute Neuts (auto) 14.1 H, Absolute Lymphs (auto) 0.84, Nucleated RBC % 0 09/05/21 03:50: Sodium 150 H, Potassium 3.6, Chloride 112 H, Carbon Dioxide 35.0 H, Anion Gap 3 L, BUN 31 H, Creatinine 0.33 L, Estim Creat Clear Calc 68.40, Est GFR (MDRD) Af Amer 342, Est GFR (MDRD) Non-Af 283, BUN/Creatinine Ratio 93.7 H, Glucose 163 H, Calcium 8.6, Total Bilirubin 0.20, AST 25, ALT 84 H, Alkaline Phosphatase 88, Total Protein 6.4, Albumin 1.3 L, Globulin 5.1 H, Albumin/Globulin Ratio 0.3 L Micro: Microbiology 08/15/21 10:30 Interface Orders Gram Stain - Final 08/15/21 10:30 Interface Orders Respiratory Culture - Final Stenotrophomonas maltophilia 08/10/21 15:30 Sputum, Induced/Lukens Gram Stain - Final 08/10/21 15:30 Sputum, Induced/Lukens Respiratory Culture - Final Klebsiella pneumoniae sp pneum 08/03/21 18:00 Blood Culture (Wb) - Anticubital Left Blood Culture - Final No growth in 5 days. 08/03/21 20:20 Blood Culture (Wb) - Right Hand Blood Culture - Final No growth in 5 days. 08/03/21 01:00 Sputum, Expectorated/Coughed Gram Stain - Final 08/03/21 01:00 Sputum, Expectorated/Coughed Respiratory Culture - Final Mixed normal respiratory christina. No Streptococcus pneumoniae, beta-hemolytic Streptococcus or Staphylococcus aureus isolated. 08/03/21 13:33 Urine, Clean Catch Legionella Antigen - Final 08/03/21 13:33 Urine, Clean Catch Streptococcus pneumoniae Antigen (M - Final Physical Exam Narrative Const no apparent distress HEENT normocephalic and moist oral mucous membranes Eyes PERRL, EOMs intact bilaterally and conjunctivae normal Neck supple and no JVD Neck Narrative: Trach place Resp normal respiratory effort, no retractions and no use of accessory muscles Auscultation: diminished lung sounds; Negative for crackles, rales, rhonchi or wheezes Cardio regular rate, regular rhythm, S1 normal heart sound, S2 normal heart sound and no murmurs GI soft to palpation, non-tender and non-distended; Negative for hepatosplenomegaly GI Narrative: PEG tube Extremity no clubbing, cyanosis or edema Skin no rashes or lesions noted Neuro no focal motor deficits and no sensory deficits noted Psych Mood & Affect: flat affect Assessment & Plan Assessment/Plan (1) Pneumonia due to COVID-19 virus: (2) Acute respiratory failure with hypoxia: PLAN: 1. Acute hypoxic respiratory failure secondary to COVID-19 pneumonia ?He has completed remdesivir, Decadron and baricitinib ?He has received a PEG tube, had a successful trach on 09/03/2021 ?We will likely need discharge planning to an LTAC in the next several days ?Continue with tube feeds 2. HTN/history of CVA ?Continue with aspirin, metoprolol ?Blood pressures do appear stable, his home blood pressure occasions DVT: Therapeutic Lovenox Charges/Coding Visit Charges Inpatient E&M: 24511 Subs Hosp L2
[2021-09-05] MEDS: oxyCODONE 5 MG Tablet 10 MG GT ×2 (16:54→22:30)
[2021-09-05] MEDS: Vital AF 1.2 Cal Liquid 1,000 ML 70 ML GT (20:44)
[2021-09-06] VITALS (20 sets, daily range): BP systolic 90–159; BP diastolic 51–76; PULSE 98–122; RESP 20–31; TEMP 37.7–38.1; O2SAT 90–93
[2021-09-06] MEDS: CHLORHEXIDINE GLUC 2% CLOTH 1 EACH TOWELETTE TOPICAL (04:01)
[2021-09-06] MEDS: Glycerin/Hypromellose/PEG400 15 ml Bottle 1 DRP EACH EYE ×3 (04:02→10:52)
[2021-09-06] MEDS: Menthol/Lanolin/Calamine/Znox 113 GM Tube 1 APPLIC TOPICAL (04:02)
[2021-09-06 04:09] LABS: Absolute Lymphocyte Count 0.85 X10^3/uL (0.83-4.51); Absolute Neutrophil Count 11.3 X10^3/uL (2.0-7.7); Basophil# 0.03 X10^3/uL; Basophil% 0.2 % (0-1); Eosinophil# 0.03 X10^3/uL; Eosinophils% 0.2 % (0-5); Hematocrit 28.6 % (40-54); Hemoglobin 8.5 g/dL (13.0-16.5); Lymphocyte # 0.85 X10^3/ul (0.83-4.51); Lymphocyte % 6.5 % (19-41); Mean Corp Hgb Conc 29.7 g/dL (32-36); Mean Corpuscular Volume 94.1 fL (80-94); Mean Platelet Vol. 10.3 fl (6.2-12.0); Monocyte# 0.63 X10^3/uL; Monocyte% 4.8 % (0-10); NRBC Flagged by Analyzer 0.2 % (0-5); Neutrophil # 11.33 X10^3/uL (2.7-7.7); Neutrophil % 86.5 % (47-70); Platelet Count 282 K/mm3 (150-450); RBC Distribution Width SD 54.6 fl (35.1-43.9); Red Blood Count 3.04 M/mm3 (4.6-6.2); White Blood Count 13.1 K/mm3 (4.4-11.0)
[2021-09-06 04:25] LABS: ALB/GLOB Ratio 0.2 RATIO (0.9-2.4); AST(SGOT) 29 U/L (15-37); Alanine Aminotransfer ALT/SGPT 76 U/L (16-61); Albumin, Serum 1.1 g/dL (3.2-5.0); Alkaline Phosphatase 87 U/L (45-117); Anion Gap 1 (5-15); BUN 35 mg/dL (7-18); BUN/Creat Ratio 119.5 RATIO (10-20); Calcium,Total 8.6 mg/dL (8.5-10.1); Chloride 115 mmol/L (98-107); Creatinine, Serum 0.29 mg/dL (0.70-1.30); EST Glomerular Filtration Rate 325 mL/min (>60); Est Glom Filt Rate - Afr Amer 394 mL/min (>60); Globulin 5.2 g/dL (2.2-4.2); Glucose 146 mg/dL (74-106); Potassium 3.6 mmol/L (3.5-5.1); Protein, Total 6.3 g/dL (6.4-8.2); Sodium Level 151 mmol/L (136-145)
[2021-09-06] MEDS: oxyCODONE 5 MG Tablet 10 MG GT ×2 (04:50→11:04)
[2021-09-06] MEDS: Acetaminophen 650 MG/20 ML UDC PO ×2 (04:51→11:03)
[2021-09-06] MEDS: Enoxaparin 80 MG/0.8 ML Syringe SC (05:49)
[2021-09-06] MEDS: Ipratropium/Albuterol Sulfate 3 ML AMPUL.NEB INHALATION (06:47)
--- NOTE | 2021-09-06 08:27 | PCM.PN.INT ---
Assessment & Plan Assessment/Plan (1) Acute respiratory failure with hypoxia: (2) Pneumonia due to COVID-19 virus: PLAN: RECOMMENDATIONS: 1. Continue to wean FiO2 to maintain oxygen saturations at or above 90%. 2. Continue prophylactic Lovenox 3. Increase free water flushes. Replete potassium as necessary 4. Continue appropriate GI prophylaxis. 5. Continue tube feeds 6. Await placement 7. Discharge planning for LTAC possibly later today pending availability. IMPRESSIONS: 1. Acute hypoxemic respiratory failure secondary to COVID-19 pneumonia The patient initially presented to the hospital with worsening shortness of breath and hypoxemia. The patient has completed treatment courses of remdesivir, decadron and partial course of baricitinib. Ultimately, the patient continued to decompensate from a respiratory perspective and had to be intubated on August 10. Sputum culture was positive for Klebsiella and stenotrophomonas, for which the patient completed an antibiotic treatment course. Plan to continue to wean FiO2 and PEEP as tolerated for saturations greater than 90%, but appears to have stabilized on the current settings. The patient responded from an oxygenation perspective to diuresis. Patient tolerated trach well. Patient stable for transfer to LTAC from my perspective 2. Obesity/hypertension/self-reported asthma/prior CVA Complicates care, management, recovery and prognosis. Continue home medications as indicated. Continue nutritional support via tube feeds and physical therapy as tolerated. Subjective Subjective Patient did well overnight. Nursing had some concerns for gurgling but on evaluation, patient is having full return volumes. Trach does appear to be somewhat positional, but respiratory effort is minimal. Patient is more interactive today and actively tracking around the room. Objective Data Objective Data Vital Signs: Vital Signs Temp Pulse Resp BP Pulse Ox 38.1 C H 119 H 20 H 96/51 L 91 09/06/21 04:00 09/06/21 07:00 09/06/21 07:00 09/06/21 07:00 09/06/21 07:00 Oxygen Flow Rate (L/min) 60 Oxygen Delivery Method Mechanical Ventilator Weight: 77.3 kg Body Mass Index (BMI) 25.6 Intake & Output: Intake and Output for Last 24 Hours 09/04/21 09/05/21 09/06/21 23:59 23:59 23:59 Intake Total 3370.12 / 3520.12 3024 / 3274 450 / 450 Output Total 1850 / 2400 1975 / 2124 1100 / 1100 Balance 1520.12 / 1120.12 1049 / 1149 -650 / -650 Medical Nutrition Assessment Dietitian: Malnutrition Criteria Met Start: 08/03/21 13:46 Freq: Status: Active Protocol: Document 09/05/21 10:23 (Rec: 09/05/21 10:23 [id number]) Nutrition Malnutrition Evidence of Malnutrition Exists Yes Malnutrition (severe): Acute Illness/Injury Evidenced By Suboptimal Energy Intake ( Severe),Weight Loss (Severe) Clinical Problem Acute Disease or Injury Related Malnutrition Etiology severe, acute malnutrition r/t inadequate energy intake d/t COVID-19 illness Signs/Symptoms as evidenced by unintentional wt loss of 14.8kg/16.3% since admission, estimated PO intake meeting <50% of estimated nutritional needs >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 Shravan BID via PEG. Lab / Micro Data Result Diagrams: 09/06/21 04:00 09/06/21 04:00 Labs: Laboratory Results - last 24 hr 09/06/21 04:00: WBC 13.1 H, RBC 3.04 L, Hgb 8.5 L, Hct 28.6 L, MCV 94.1 H, MCH 28.0, MCHC 29.7 L, RDW Std Deviation 54.6 H, RDW Coeff of Williams 16.0 H, Plt Count 282, MPV 10.3, Immature Gran % (Auto) 1.800 H, Neut % (Auto) 86.5 H, Lymph % (Auto) 6.5 L, [place] % (Auto) 4.8, Eos % (Auto) 0.2, Baso % (Auto) 0.2, Absolute Neuts (auto) 11.3 H, Absolute Lymphs (auto) 0.85, Nucleated RBC % 0.2 09/06/21 04:00: Sodium 151 H, Potassium 3.6, Chloride 115 H, Carbon Dioxide 35.0 H, Anion Gap 1 L, BUN 35 H, Creatinine 0.29 L, Estim Creat Clear Calc 68.40, Est GFR (MDRD) Af Amer 394, Est GFR (MDRD) Non-Af 325, BUN/Creatinine Ratio 119.5 H, Glucose 146 H, Calcium 8.6, Total Bilirubin 0.20, AST 29, ALT 76 H, Alkaline Phosphatase 87, Total Protein 6.3 L, Albumin 1.1 L, Globulin 5.2 H, Albumin/Globulin Ratio 0.2 L Micro: Microbiology 08/15/21 10:30 Interface Orders Gram Stain - Final 08/15/21 10:30 Interface Orders Respiratory Culture - Final Stenotrophomonas maltophilia 08/10/21 15:30 Sputum, Induced/Lukens Gram Stain - Final 08/10/21 15:30 Sputum, Induced/Lukens Respiratory Culture - Final Klebsiella pneumoniae sp pneum 08/03/21 18:00 Blood Culture (Wb) - Anticubital Left Blood Culture - Final No growth in 5 days. 08/03/21 20:20 Blood Culture (Wb) - Right Hand Blood Culture - Final No growth in 5 days. 08/03/21 01:00 Sputum, Expectorated/Coughed Gram Stain - Final 08/03/21 01:00 Sputum, Expectorated/Coughed Respiratory Culture - Final Mixed normal respiratory christina. No Streptococcus pneumoniae, beta-hemolytic Streptococcus or Staphylococcus aureus isolated. 08/03/21 13:33 Urine, Clean Catch Legionella Antigen - Final 08/03/21 13:33 Urine, Clean Catch Streptococcus pneumoniae Antigen (M - Final Physical Exam Const no apparent distress General Appearance: patient mechanically ventilated HEENT normocephalic and head/scalp atraumatic Eyes PERRL and EOMs intact bilaterally Pupil: accommodation reflex normal Neck supple General: trachea midline and tracheostomy present Chest inspection of chest normal Chest: symmetrical chest wall rise; Negative for crepitus Resp Auscultation: diminished lung sounds; Negative for rales, rhonchi or wheezes Cardio S1 normal heart sound and S2 normal heart sound Rate: tachycardic GI normal to inspection, nondistended, normoactive bowel sounds Inspection: GI tube present Extremity no clubbing, cyanosis or edema Skin no rashes or lesions noted Neuro Neuro Narrative: Global weakness with nonfocal exam Charges/Coding Visit Charges Inpatient E&M: 72083 Subs Hosp L2
[2021-09-06] MEDS: Juven (unflavored) Packet 1 PACKET GT (08:45)
[2021-09-06] MEDS: Aspirin 325 MG Tablet GT (08:48)
[2021-09-06] MEDS: Senna/Docusate Sodium 1 Tablet 2 TABLET GT (08:48)
[2021-09-06] MEDS: Metoprolol Tartrate 50 MG Tablet GT (08:48)
[2021-09-06] MEDS: Losartan Potassium 100 MG Tablet GT (08:48)
[2021-09-06] MEDS: Chlorhexidine 15 ML PO (08:49)
--- NOTE | 2021-09-06 09:53 | CASEMGMT ---
Addendum entered by Wanda Maurer 09/06/21 11:24: TYLER CASTILLO called and updated Ryne at [facility] that transport is setup for 1300. TYLER CASTILLO faxed discharge paperwork to [facility]. RN ANNA call and updated patient's regarding discharge to [facility] today and approximate pickup time. had no further questions or concerns at this time. Addendum entered by Wanda Maurer 09/06/21 10:20: TYLER CASTILLO received call back from [facility] that they are able to take the patient at anytime. Original Note: RN ANNA received call from Ryne at [facility] and they will have a bed today after 3pm. TYLER CASTILLO updated direct mail marketer and nursing. CM will fax discharge instructions when available.
--- NOTE | 2021-09-06 10:22 | PCM.TXEXTCAR ---
Diet 08/10/21 16:40 NPO [Diet: Nothing Per Oral] Is pt able to select menu?: No Routine Orders/Code Status Routine Lab Work: CBC and BMP Code Status: Full Code Wound(s) coccyx: Wound Type: Pressure Injury rt buttocks: Wound Type: Pressure Injury sacrum: Wound Type: Pressure Injury Dressing Change: Mepilex Therapies Physical Therapy: Eval and Treat Occupational Therapy: Eval and Treat Speech Therapy: Eval and Treat Problem/Diagnosis (1) Acute respiratory failure with hypoxia: Status: Acute (2) Pneumonia due to COVID-19 virus: Status: Acute Allergies/Procedures Done in Hospital Allergies cephalexin [From Keflex] Allergy (Verified 08/03/21 00:22) Rash theophylline Allergy (Verified 08/03/21 00:22) Rash Procedures: Peg tube placement and - (Tracheostomy) Type of Care/Length of Stay Estimated LOS: More Than 30 Days Type of Care Needed: LTAC Rehab Potential: Fair Prognosis: Fair Additional Orders/Day of Discharge Day of Discharge: 09/06/21 Dietary and Speech Recommendations Dietitian Recommendations/Changes: NPO while intubated; Vital AF 1.2 via PEG at goal rate of 70mL/hour w/ [id number] flush every 4 hours to provide 2016 calories, 126 g protein, and 2562mL total fluid/day. Shravan BID via PEG. Discharge Plan Admission Admit Date/Time: 08/02/21 23:35 Attending Provider: Polo Morales Primary Care Provider: Wilfrido Prado Consulting Providers: Kip Kebede ; Aaron Veloz ; Patricia Kirk COOLING MACHINE OPERATOR ; Clive Shaver ; Bronson Mina ; Niels Mendez ; Charbel Douglas Discharge Orders/Prescriptions Prescriptions: New Shravan (with collagen) 7-7-1.5 gram Powder In Packet 1 packet G-tube BIDCM Qty: 0 RF: 0 polyethylene glycol 3350 17 gram Powder In Packet 17 g G-tube DAILY PRN (Reason: Congestion) Qty: 0 RF: 0 metoprolol tartrate 50 mg Tablet 50 mg G-tube BID Qty: 0 RF: 0 losartan 100 mg Tablet 100 mg G-tube DAILY Qty: 0 RF: 0 oxycodone 5 mg Tablet 10 mg G-tube Q6H PRN PRN (Reason: Pain Score 6-10) 3 Days Qty: 10 RF: 0 enoxaparin 80 mg/0.8 mL Syringe 80 mg subcut Q12@0600,1800 Qty: 0 RF: 0 Artificial Tears(ac-[id number]-[id number]) 1-0.2-0.2 % Drops 1 drp EACH EYE Q4H Qty: 0 RF: 0 Continued diphenhydramine HCl 50 mg Capsule 50 mg PO QHS RF: 0 aspirin 325 mg Capsule 325 mg PO DAILY RF: 0 Discontinued doxycycline monohydrate 100 mg tablet RF: 0 olmesartan-hydrochlorothiazide 40-25 mg tablet 1 tab PO DAILY RF: 0 metoprolol tartrate 25 mg tablet 25 mg PO BID RF: 0 Referrals / Follow Up: Wilfrido Prado MD [Primary Care Provider] - Disposition Disposition (needs filled in before D/C Order can be placed): [facility]
--- NOTE | 2021-09-06 10:36 | DS.PCM_ITS ---
Providers Date of Admission: 08/02/21 Primary Care Physician: Dr. Wilfrido Prado MD Consultations 08/02/21 23:37 Consult: Clinical Psychologist Licensed / Pulmonary Medicine Routine Consulting Provider: Pulmonary Medicine mo Condon Reason for Consult: Covid-19 EMERGENT Consult: No MD Notified: Yes Date Notified: 08/02/21 Time Notified: 20:00 Method of Notification: Verbal 08/02/21 23:38 Consult: Infectious Disease Routine Consulting Provider: Rabia Shaver Reason for Consult: Covid-19 EMERGENT Consult: No MD Notified: Yes Date Notified: 08/03/21 Time Notified: 13:47 Method of Notification: Answering Service Method of Consult:: In-Person 08/15/21 05:48 Consult: Onc/Wound/heavy equipment supervisor Routine Comment: pressure ulcer on coccyx 08/22/21 11:07 Consult: ENT Routine Consulting Provider: Bronson Mina Reason for Consult: Evaluate for tracheostomy placement EMERGENT Consult: No MD Notified: Yes Date Notified: 08/22/21 Time Notified: 11:08 Method of Notification: voicemail left 08/22/21 11:09 Consult: General Surgery Routine Consulting Provider: Niels Mendez Reason for Consult: PEG placement EMERGENT Consult: No MD Notified: Yes Date Notified: 08/22/21 Time Notified: 11:09 Method of Notification: Text 08/29/21 14:57 Consult: ENT Routine Consulting Provider: Charbel Douglas Reason for Consult: Trach EMERGENT Consult: No MD Notified: Yes Date Notified: 08/29/21 Time Notified: 14:57 Method of Notification: Verbal Reason For Visit: BILATERAL COVID19 PNEUMONIA Diagnosis Discharge Diagnosis (1) Acute respiratory failure with hypoxia: Status: Acute Code(s): J96.01 - Acute respiratory failure with hypoxia (2) Pneumonia due to COVID-19 virus: Status: Acute Code(s): U07.1 - COVID-19; J12.82 - Pneumonia due to coronavirus disease 2019 Medications at Discharge Home Medications aspirin 325 mg PO DAILY 08/04/21 diphenhydramine HCl 50 mg PO QHS 08/04/21 [id number] [Shravan (with collagen)] 1 packet G-TUBE BIDCM #0 ea 09/06/21 enoxaparin 80 mg SUBCUT Q12@0600,1800 #0 ml 09/06/21 losartan 100 mg G-TUBE DAILY #0 tab 09/06/21 metoprolol tartrate 50 mg G-TUBE BID #0 tab 09/06/21 oxycodone 10 mg G-TUBE Q6H PRN PRN 3 Days #10 tab 09/06/21 peg [id number] [Artificial Tears([id number])] 1 drp EACH EYE Q4H #0 ml 09/06/21 polyethylene glycol 3350 17 g G-TUBE DAILY PRN #0 ea 09/06/21 Hospital Course Operations - Procedures Peg tube placement and - (Tracheostomy) Summary of Care Provided Minutes Spent on Discharge: 42 Hospital Course: Per HPI: RABIA ALCANTARA, is a 66 M who is being admitted directly in ICU from [facility] for worsening shortness of breath related to COVID-19 pneumonia. Patient symptoms started 8 days prior to admission on 07/25 mainly shortness of breath, fever and chills. He tested covid positive on 07/28. Triage vitals in [facility] temperature 38.3 ?C, heart rate 100 -110/min, respiratory rate 18 to 20/min, BP 180/76. ABG was done on 50% Ventimask 7.5 . Bicarb in BMP 20, anion gap 16. WBC count 9.6 thousand with no lymphopenia. ANC high, with lymphopenia. Hemoglobin 14. Lactic acid 1.7. Subsequently patient was put on BiPAP, 12/, 100% FiO2 pulse ox 96%. I urged after talking to fire pot operator to intubate in case if he desaturates or hypoxic while transportation. I talked to ED physician again after an hour and she said he does not want to get intubated on ventilator and was weaned off to 70% FiO2 and is stable for last 1 hour as per the [facility] physician, Dr. Scott. D-dimer high. Chest x-ray shows bilateral patchy infiltrates. CT angiogram chest multifocal bilateral pneumonia but no PE. He has history of asthma, hypertension and a stroke in the past, with residual dysequilibrium Hospital Course: 1. Acute hypoxic respiratory failure secondary to COVID-19 pneumonia ?He has completed remdesivir, Decadron and baricitinib ?He has received a PEG tube, had a successful trach on 09/03/2021 ?We will likely need discharge planning to an LTAC in the next several days ?Continue with tube feeds 09/06/2021: Currently trach and PEG and doing a little bit better. He has received approval to be discharged to the LTAC. He has completed all interventions for COVID. We will continue with aspirin as well as therapeutic Lovenox given his immobility and the fact that COVID is appearing to be hypercoagulable. Given his recent PEG tube and trach placement, will continue with narcotics on the outpatient side as well. 2. HTN/history of CVA ?Continue with aspirin, metoprolol ?Blood pressures do appear stable, his home blood pressure occasions 09/06/2021: We discontinued his olmesartan/hydrochlorothiazide combination pill and placed him on losartan and metoprolol 50 mg p.o. twice daily. Physical Exam Narrative Const no apparent distress HEENT normocephalic and moist oral mucous membranes Eyes PERRL, EOMs intact bilaterally and conjunctivae normal Neck supple and no JVD Neck Narrative: Trach place Resp normal respiratory effort, no retractions and no use of accessory muscles Auscultation: diminished lung sounds; Negative for crackles, rales, rhonchi or wheezes Cardio regular rate, regular rhythm, S1 normal heart sound, S2 normal heart sound and no murmurs GI soft to palpation, non-tender and non-distended; Negative for hepatosplenomegaly GI Narrative: PEG tube Extremity no clubbing, cyanosis or edema Skin no rashes or lesions noted Neuro no focal motor deficits and no sensory deficits noted Psych Mood & Affect: flat affect Medical Records Data Medical Nutrition Assessment Dietitian: Malnutrition Criteria Met Start: 08/03/21 13:46 Freq: Status: Active Protocol: Document 09/05/21 10:23 AG (Rec: 09/05/21 10:23 AG [id number]) Nutrition Malnutrition Evidence of Malnutrition Exists Yes Malnutrition (severe): Acute Illness/Injury Evidenced By Suboptimal Energy Intake ( Severe),Weight Loss (Severe) Clinical Problem Acute Disease or Injury Related Malnutrition Etiology severe, acute malnutrition r/t inadequate energy intake d/t COVID-19 illness Signs/Symptoms as evidenced by unintentional wt loss of 14.8kg/16.3% since admission, estimated PO intake meeting <50% of estimated nutritional needs >1 week STATION EXAMINER Status Active Problem Recommendation Dietitian Recommendations/Changes NPO while intubated; Vital AF 1.2 via PEG at goal rate of 70mL/hour w/ [id number] flush every 4 hours to provide 2016 calories, 126 g protein, and 2562mL total fluid/day. Shravan BID via PEG. Weight / BMI Weight Weight: 170 lb 6.677 oz Body Mass Index (BMI) 25.6 ABG / Lab / Microbiology Data Result Diagrams: 09/06/21 04:00 09/06/21 04:00 Laboratory: Laboratory Results - last 24 hr 09/06/21 04:00: WBC 13.1 H, RBC 3.04 L, Hgb 8.5 L, Hct 28.6 L, MCV 94.1 H, MCH 28.0, MCHC 29.7 L, RDW Std Deviation 54.6 H, RDW Coeff of Williams 16.0 H, Plt Count 282, MPV 10.3, Immature Gran % (Auto) 1.800 H, Neut % (Auto) 86.5 H, Lymph % (Auto) 6.5 L, [place] % (Auto) 4.8, Eos % (Auto) 0.2, Baso % (Auto) 0.2, Absolute Neuts (auto) 11.3 H, Absolute Lymphs (auto) 0.85, Nucleated RBC % 0.2 09/06/21 04:00: Sodium 151 H, Potassium 3.6, Chloride 115 H, Carbon Dioxide 35.0 H, Anion Gap 1 L, BUN 35 H, Creatinine 0.29 L, Estim Creat Clear Calc 68.40, Est GFR (MDRD) Af Amer 394, Est GFR (MDRD) Non-Af 325, BUN/Creatinine Ratio 119.5 H, Glucose 146 H, Calcium 8.6, Total Bilirubin 0.20, AST 29, ALT 76 H, Alkaline Phosphatase 87, Total Protein 6.3 L, Albumin 1.1 L, Globulin 5.2 H, Albumin/Globulin Ratio 0.2 L Microbiology: Microbiology 08/15/21 10:30 Interface Orders Gram Stain - Final 08/15/21 10:30 Interface Orders Respiratory Culture - Final Stenotrophomonas maltophilia 08/10/21 15:30 Sputum, Induced/Lukens Gram Stain - Final 08/10/21 15:30 Sputum, Induced/Lukens Respiratory Culture - Final Klebsiella pneumoniae sp pneum 08/03/21 18:00 Blood Culture (Wb) - Anticubital Left Blood Culture - Final No growth in 5 days. 08/03/21 20:20 Blood Culture (Wb) - Right Hand Blood Culture - Final No growth in 5 days. 08/03/21 01:00 Sputum, Expectorated/Coughed Gram Stain - Final 08/03/21 01:00 Sputum, Expectorated/Coughed Respiratory Culture - Final Mixed normal respiratory christina. No Streptococcus pneumoniae, beta-hemolytic Streptococcus or Staphylococcus aureus isolated. 08/03/21 13:33 Urine, Clean Catch Legionella Antigen - Final 08/03/21 13:33 Urine, Clean Catch Streptococcus pneumoniae Antigen (M - Final Meaningful Use Info Meaningful Use Diagnoses (Choose all that apply): None applicable Discharge Plan Admission Admit Date/Time: 08/02/21 23:35 Attending Provider: Polo Morales Primary Care Provider: Wilfrido Prado Consulting Providers: Kip Kebede ; Aaron Veloz ; Patricia Kirk NP ; Rabia Shaver ; Bronson Mina ; Niels Mendez ; Charbel Douglas Discharge Orders/Prescriptions Prescriptions: New Shravan (with collagen) 7-7-1.5 gram Powder In Packet 1 packet G-tube BIDCM Qty: 0 RF: 0 polyethylene glycol 3350 17 gram Powder In Packet 17 g G-tube DAILY PRN (Reason: Congestion) Qty: 0 RF: 0 metoprolol tartrate 50 mg Tablet 50 mg G-tube BID Qty: 0 RF: 0 losartan 100 mg Tablet 100 mg G-tube DAILY Qty: 0 RF: 0 oxycodone 5 mg Tablet 10 mg G-tube Q6H PRN PRN (Reason: Pain Score 6-10) 3 Days Qty: 10 RF: 0 enoxaparin 80 mg/0.8 mL Syringe 80 mg subcut Q12@0600,1800 Qty: 0 RF: 0 Artificial Tears([id number]) 1-0.2-0.2 % Drops 1 drp EACH EYE Q4H Qty: 0 RF: 0 Continued diphenhydramine HCl 50 mg Capsule 50 mg PO QHS RF: 0 aspirin 325 mg Capsule 325 mg PO DAILY RF: 0 Discontinued doxycycline monohydrate 100 mg tablet RF: 0 olmesartan-hydrochlorothiazide 40-25 mg tablet 1 tab PO DAILY RF: 0 metoprolol tartrate 25 mg tablet 25 mg PO BID RF: 0 Referrals / Follow Up: Wilfrido Prado MD [Primary Care Provider] - Disposition Disposition (needs filled in before D/C Order can be placed): Longterm Acute Care Charges/Coding Visit Charges Inpatient E&M: 79384 Disch Hosp
== END 2021-09-06 13:35 | DRG 4 ==
PROVIDERS: Internal Medicine; Internal Medicine Critical Care Medicine; Otolaryngology; Surgery; Admitting Provider Internal Medicine; PCP Family Medicine; Referring Provider Internal Medicine; Visit Provider Family Medicine
PROC: 0DJ08ZZ Inspection of Upper Intestinal Tract, Via Natural or Artificial Opening Endoscopic (ICD-10-PCS; CPT 43235; principal; 2021-08-23 14:15)
PROC: 0B110F4 Bypass Trachea to Cutaneous with Tracheostomy Device, Open Approach (ICD-10-PCS; principal; 2021-09-03 11:00)
DX: U07.1 COVID-19 (principal); J12.82 Pneumonia due to coronavirus disease 2019; J15.0 Pneumonia due to Klebsiella pneumoniae; E43 Unspecified severe protein-calorie malnutrition; J15.6 Pneumonia due to other Gram-negative bacteria; J96.01 Acute respiratory failure with hypoxia; I47.1 Supraventricular tachycardia; J45.21 Mild intermittent asthma with (acute) exacerbation; E87.0 Hyperosmolality and hypernatremia; L89.150 Pressure ulcer of sacral region, unstageable; K29.70 Gastritis, unspecified, without bleeding; K44.9 Diaphragmatic hernia without obstruction or gangrene; E87.6 Hypokalemia; I10 Essential (primary) hypertension; Z23 Encounter for immunization; E66.9 Obesity, unspecified; R63.30 Feeding difficulties, unspecified; Z68.25 Body mass index [BMI] 25.0-25.9, adult; Z68.30 Body mass index [BMI] 30.0-30.9, adult
CPT/HCPCS: 31500; 31720; 36415; 36600; 71045; 74018; 80048; 80053; 80185; 82550; 82803; 83605; 83615; 83735; 83880; 84100; 84145; 84478; 84484; 85025; 85379; 85384; 85610; 86140; 87040; 87070; 87077; 87186; 87205; 87449; 87641; 93005; 94002; 94003; 94640; 94660; 94667; 94668; 94762; 97110; 97162; 97166; 97530; 97535; 97802; 97803; 99251; G0008; J2185; J7050; 90686; A4216; G0463; J1940; J3010

== ENCOUNTER 2023-02-28 14:00 | Outpatient (RCR) | payer MEDICARE, BC, SELFPAY ==
[2023-02-07 09:03] VITALS: BP 165/88; PULSE 66; RESP 18; TEMP 36.7; BMI 26.6
--- NOTE | 2023-02-07 10:43 | RAD_ITS ---
INDICATION: NON HEALING WOUND EXAMINATION/TECHNIQUE: X-RAY - XR Sacrum/Coccyx Min 2 Views COMPARISON: None. FINDINGS: Soft tissue thickening with skin defect presumed site of ulcer overlying the lower sacrum/coccygeal junction on the lateral view. No definite lytic lesion or cortical destruction. Degenerative changes at the lumbosacral junction. Sacroiliac joints are symmetric. RAD/Sacrum-Coccyx min 2 Views IMPRESSION: Soft tissue wound or ulcer overlying the lower sacrum/coccyx with soft tissue thickening. No definite cortical thickening to suggest osteomyelitis. Further imaging with CT or MRI may be helpful to evaluate for osteomyelitis, if clinically indicated. Electronically Signed: Kristine Kapoor MD at 7:37 EDT ,
--- NOTE | 2023-02-07 14:02 | PCM.WC.HP ---
History of Present Illness Date of Service: 02/07/23 Chief Complaint: Sacral ulcer History of Wound: Patient presents to wound care center today for evaluation and management of sacral pressure ulcer. This wound has been present for 1.5 years. It started when patient was hospitalized, on ventilator in ICU with COVID. It has significantly improved in size since then but has been stagnant in progress for some time now. He had been receiving wound care at the [facility]. He reports that it has never been cultured, he has never had imaging, and he has been following up in 2-month intervals with no debridement to between. His wound care has consisted Samaria and of otherwise leaving the wound open to air/covered with a thin layer of gauze. He has been instructed to keep it dry so he has been covering and taping over the area during showers. He is at this point frustrated with the lack of recent progress and decided to establish care here instead at the recommendation of a family friend. He did suffer from significant weight loss and malnutrition following his hospitalization from [facility]. He has been making positive progress towards weight gain and overall strength over the last several months. Otherwise, his medical history is significant for asthma, hypertension, narcolepsy. He takes baby aspirin daily but no other blood thinners. He has no prior history of similar wounds. He is very active able without any limited mobility. He will use an extra padding on his chair/couch if he is having pain in the area of the wounds, but otherwise does not use padding. He does not have an offloading mattress or pad for his bed. He does weekly cut his grass on a lawnmower, he has 5 to 6 acres. He denies nausea, vomiting, fever, chills, new or worsening pain, drainage, foul odor. FOR[facility]LY [facility] Medical History Asthma Hypertension Narcolepsy Stroke/cerebrovascular accident Home Medications aspirin 325 mg capsule 325 mg PO DAILY Check with primary doctor 08/04/21 [History Last Taken Unknown] diphenhydramine HCl 50 mg capsule 50 mg PO QHS sleep 08/04/21 [History Last Taken Unknown] enoxaparin 80 mg/0.8 mL subcutaneous syringe 80 mg (0.8 mL) subcut Q12@0600,1800 #0 mL 09/06/21 [Rx Last Taken Unknown] oxycodone 5 mg tablet 10 mg G-tube Q6H PRN PRN Pain Score 6-10 3 days #10 tabs 09/06/21 [Rx Last Taken Unknown] albuterol 90 mcg/actuation aerosol inhaler 108 mcg inhalation Q4H PRN PRN Shortness Of Breath 02/07/23 [History Last Taken Unknown] atorvastatin 20 mg tablet (Lipitor) 20 mg PO DAILY 02/07/23 [History Last Taken Unknown] cholecalciferol (vitamin D3) 25 mcg (1,000 unit) tablet 25 mcg PO DAILY 02/07/23 [History Last Taken Unknown] clonidine 0.2 mg/24 hr weekly transdermal patch 1 patch transdermal QWEEK 02/07/23 [History Last Taken Unknown] losartan 100 mg-hydrochlorothiazide 25 mg tablet (Hyzaar) 1 tab PO DAILY 02/07/23 [History Last Taken Unknown] metoprolol tartrate 50 mg tablet 50 mg PO BID 02/07/23 [History Last Taken Unknown] omega 3-obz-aue-fish oil 1,200 mg (144 mg-216 mg) capsule (Fish Oil) cap PO DAILY 02/07/23 [History Last Taken Unknown] vitamin E 1,000 unit tablet 1,000 PO 02/07/23 [History Last Taken Unknown] Allergy/AdvReac Type Severity Reaction Status Date / Time cephalexin [From Keflex] Allergy Rash Verified 08/03/21 00:22 theophylline Allergy Rash Verified 08/03/21 00:22 Social History Smoking Status: Never smoker Vital Signs Vital Signs Vital Signs: 02/07/23 09:03 Temperature 98.1 F Temperature Source Temporal Pulse Rate 66 Respiratory Rate 18 Blood Pressure 165/88 H Blood Pressure Mean 113 Blood Pressure Source Monitor Blood Pressure Position Sitting Blood Pressure Location Left Arm Weight Weight: 175 lb Body Mass Index (BMI) 26.6 Physical Exam Const alert, oriented x3, no apparent distress, average body habitus and healthy appearing General Appearance: cooperative HEENT normocephalic, head/scalp atraumatic, hearing grossly normal bilaterally and external ears normal Head and Scalp: normal to inspection and normocephalic Nose: external nose normal Eyes EOMs intact bilaterally General Eye: normal appearance of both eyes Neck General: normal visual inspection and trachea midline Resp normal respiratory effort, no retractions and no use of accessory muscles Effort and Inspection: able to speak in complete sentences; Negative for labored, stridor or audible wheezes Cardio Rate: regular rate Rhythm: regular rhythm Peripheral Pulses: radial pulses present Extremity normal to inspection and no clubbing, cyanosis or edema Skin Wound Narrative: Pressure ulcer noted to the sacrum. There is epiboly and undermining of the edges of the wound and depth extending into the subcutaneous tissue, does not probe to bone on my exam. No eschar or necrotic tissue noted. Moderate slough, small amount of granulation tissue. No significant drainage, foul odor. Periwound skin with reddish/purple discoloration. Psych mental status grossly normal Appearance: grossly normal Attitude: calm Activity / Motor Behavior: appropriate eye contact Speech: normal speech Debridement Note Debridement Note Wound debrided: Sacral ulcer Laterality: Not Applicable Wound Grade/Stage: 3 Type of Debridement: Excisional debridement Anesthesia Used: 5% Lidocaine Gel Depth: Down to and including healthy tissue and in the subcutaneous layer Percentage of wound debrided: 100 Instrument Used: 5mm curette Severity: Fat Layer Exposed Amount of bleeding with debridement: Mild Bleeding Controlled with: Pressure Patient tolerated procedure: Patient tolerated procedure well Post-Debridement Measurements and Additional Note: Post-Debridement Measurements/Treatment - Nurse 1 - General Ulcer Assessment Start: 02/07/23 09:03 Freq: Status: Active Protocol: DONNIE Activity Type Activity Date Activity User E-sign Co-sign Detail Recorded Client Recorded Date Recorded By Document 02/07/23 09:03 [id number] 02/07/23 09:22 02/07/23 09:03 - Today's Visit Information Type of service Initial Visit Arrival Mode Ambulatory Accompanied by Patient Identification Verified (Name & Yes ) Patient Requires Transmission-Based No Precautions Safety Precautions Fall Prevention Height and Weight Height 5 ft 8 in Weight 175 lb Weight in Pounds 175.0 lbs Weight Measurement Method Stated by Patient Body Mass Index (BMI) 26.6 BMI Classification Overweight BSA - Cherelle 1.93 Vital Signs Temperature (97.8 F-99.1 F) 98.1 F Temperature Source Temporal Pulse Rate (60-100) 66 Respiratory Rate (12-18) 18 Respiratory rate source Observation Blood Pressure (90/60-120/80) 165/88 H Blood Pressure Mean 113 Source Monitor Position Sitting Blood Pressure Location Left Arm History Since Last Visit- (Skip if this is Patient's initial visit) Left Footwear Regular Shoe Right Footwear Regular Shoe Pain Scale: 0-10 Numeric Is Patient Pain Free? Yes Communication Assessment Primary Language Occitan Air Filler Required No Able to Read Yes Able to Write Yes Communication Tools None Caregiver Communication Skills No Impairment Impairment Right Hearing Abillity Hard of Hearing ,Use of Hearing Aid Left Hearing Abillity Hard of Hearing Visual Assistive Devices Glasses Teaching Assessment Preferences Verbal,Written Barriers to Learning None Readiness To Learn Excellent Willingness to Engage in Self Management High Activies Readiness to Engage in Self Management High Activities Anxiety Level Calm Cooperation Cooperative Perception Coherent Interest in Health Problem Asks Questions Education Importance Acknowledges Need Smoking Status Never smoker Functional Assessment Recent Decline in Ability to Perform Denies Any Declines Assistive Device With Patient No Culture/Amish/Psychiatric Social Worker Cultural/Amish Needs that may affect No Treatment Plan Would you allow our hospital restaurant area director to No meet you for the purpose of spiritual/ emotional support? Psychiatric Social Worker to contact place of uatsdin No WC - Nurse 1 - General Ulcer Measurement Start: 02/07/23 09:03 Freq: Status: Active Protocol: Activity Type Activity Date Activity User E-sign Co-sign Detail Recorded Client Recorded Date Recorded By Document 02/07/23 09:03 [id number] 02/07/23 09:22 02/07/23 09:03 Wound Center Nurse 1 1-Sacrum -Combined with other wound No -Current Size (cm) - Length 0.6 -Current Size (cm) - Width 1.5 -Current Size (cm) - Depth 1.1 -Total Square Cm 0.90 -Photo Taken Yes -Epithelialization Medium 34-66% -Tunneling No -Undermining/Tunneling Yes -Undermining/Tunneling Starts (O'clock 2 ) -Undermining/Tunneling Ends (O'clock) 8 -Maximum Distance (cm) 0.6 -Classification - Pressure Ulcer Stage 3 -Wound Margin Thickened & Rolled Under -Granulation Amt Medium (34-66%) -Granulation Quality [place] -Slough/Fibrin Yes -Necrosis Amt Medium (34-66%) -Structure Exposed Fat Layer Exposed -Texture (Mickie-wound Skin Appearance) Assessed, Scarring -Moisture (Mickie-wound Skin Appearance) No Abnormality, Dry/Scaly -Color (Mickie-wound Skin Appearance) Assessed -Tenderness on Palpation (Mickie-wound Yes Skin Appearance) -Ulcer Cleansing Soap and Water -Foul Odor after Cleansing No -Anesthetic Used 5% Lidocaine Gel Lower Limb Edema Present NA WC - Nurse 2 - General Ulcer CM Notes Start: 02/07/23 09:03 Freq: Status: Active Protocol: Activity Type Activity Date Activity User E-sign Co-sign Detail Recorded Client Recorded Date Recorded By Document 02/07/23 12:06 PL [id number] 02/07/23 12:08 PL 02/07/23 12:06 Wound Center Nurse 2 1-Sacrum -Time 09:43 -Correct Patient Yes -Correct Side, Site, Position Yes -Correct Procedure Yes -Procedure Performed Yes -Type of Procedure Debridement -Clinical Debridement Subcutaneous -Tissue Removed Subcutaneous -Post Debridement (cm) - Length 0.9 -Post Debridement (cm) - Width 1.5 -Post Debridement (cm) - Depth 1.6 -Total Square (Post) (cm) 1.35 -Area of Debridement (cm) - Length 0.9 -Area of Debridement (cm) - Width 1.5 -Total Square (Area) (cm) 1.35 -Tunneling Yes -Tunneling Position (O'clock) 2 -Tunneling Distance (cm) 1.4 -Undermining/Tunneling Yes -Undermining/Tunneling Starts (O'clock 5 ) -Undermining/Tunneling Ends (O'clock) 10 -Maximum Distance (cm) 0.4 -Circular Undermining No -Wound/Ulcer Outcome Not Healed -Ulcer Cleansing Rinsed/ Irrigated with Saline -Foul Odor after Cleansing No -Bioengineered Tissue No -Bleeding Controlled with Pressure -Treatment Response Procedure Tolerated Well -Debridement - Subq, 1st 20sq cm Yes Pain Scale: 0-10 Numeric Is Patient Pain Free? Yes KARIE - Nurse 3 - General Ulcer D/C NN Start: 02/07/23 09:03 Freq: Status: Active Protocol: Activity Type Activity Date Activity User E-sign Co-sign Detail Recorded Client Recorded Date Recorded By Document 02/07/23 10:19 KW [id number] 02/07/23 10:28 KW 02/07/23 10:19 Wound Care Center Nurse 3 1-Sacrum -Ulcer Cleansing Rinsed/ Irrigated with Saline -Foul Odor after Cleansing No -Primary Dressing Applied Hysept ($), Other -Other Dressing DSD -Other Covering foam dressing Pain Scale: 0-10 Numeric Is Patient Pain Free? Yes WC - Visit Discharge Discharge Condition Stable Ambulatory Status Ambulatory Transportation Private Auto Accompanied by Medication Reconcilliation completed & No provided to patient/care provider Clinical Summary of Care Provided Yes Charges/Coding Visit Charges Office Visits / Consults: 15816 OV L3 New Procedures Integumentary [id number]: [id number] Roxi subq tissue 20 sq cm/< Assessment/Plan Assessment/Plan (1) Pressure ulcer of sacral region, stage 3: CODE(S): L89.153 - Pressure ulcer of sacral region, stage 3 PLAN: Obtained wound culture and imaging today due to the prolonged nature of this pressure. Would like to rule out osteomyelitis/bone involvement and underlying infection. Will prescribe antibiotics or obtain further imaging as indicated. Will do Dakin soaked gauze to the wound bed cover with silicone border foam dressing. Change the dressing daily or more often as needed to keep clean and dry. Rinse the area with soap and water and pat dry before applying new dressings. It is okay to shower and allow water and soap to run over the area just to ensure patting dry after however do not submerge the wound in water. We discussed the importance of offloading pressure to the area even when there is no pain. I advised that he obtain an eggcrate foam pad to place in the chair/seat sits and most often. If sitting or lying down for prolonged period of time change positions frequently, at least every 30 minutes and try to stand up and walk around a bit every hour. We discussed the benefits of increasing protein in the diet and decreasing carbs/sugar for wound healing. He will return to clinic in 1 week.
--- NOTE | 2023-02-14 07:28 | PCM.WC.PN ---
History of Present Illness Date of Service: 02/14/23 Chief Complaint: Sacral ulcer History of Wound: Patient presents to wound care center today for evaluation and management of sacral pressure ulcer. This wound has been present for 1.5 years. It started when patient was hospitalized, on ventilator in ICU with COVID. It has significantly improved in size since then but has been stagnant in progress for some time now. He had been receiving wound care at the [place] wound center. He reports that it has never been cultured, he has never had imaging, and he has been following up in 2-month intervals with no debridement to between. His wound care has consisted Sam[place] and of otherwise leaving the wound open to air/covered with a thin layer of gauze. He has been instructed to keep it dry so he has been covering and taping over the area during showers. He is at this point frustrated with the lack of recent progress and decided to establish care here instead at the recommendation of a family friend. He did suffer from significant weight loss and malnutrition following his hospitalization from [facility]. He has been making positive progress towards weight gain and overall strength over the last several months. Otherwise, his medical history is significant for asthma, hypertension, narcolepsy. He takes baby aspirin daily but no other blood thinners. He has no prior history of similar wounds. He is very active able without any limited mobility. He will use an extra padding on his chair/couch if he is having pain in the area of the wounds, but otherwise does not use padding. He does not have an offloading mattress or pad for his bed. He does weekly cut his grass on a lawnmower, he has 5 to 6 acres. He denies nausea, vomiting, fever, chills, new or worsening pain, drainage, foul odor. Subjective Subjective His has been doing the dressing changes at home, she says she sometimes struggles to pack the gauze in but is otherwise not having any issues. They have enough supplies. He is adhering to the offloading measures as instructed. They both feel it looks to have improved over this last week. He did complete the XR as ordered. Objective Data Objective Data Vital Signs: Vital Signs Temp Pulse Resp BP 98.1 F 66 18 165/88 H 02/07/23 09:03 02/07/23 09:03 02/07/23 09:03 02/07/23 09:03 Weight: 175 lb Body Mass Index (BMI) 26.6 Lab / Micro Data Micro: Microbiology 02/07/23 10:00 Wound Abcess - Sacral Gram Stain - Final 02/07/23 10:00 Wound Abcess - Sacral Wound Culture - Final No growth aerobically. 02/07/23 10:00 Wound Abcess - Sacral Anaerobic Culture - Final No anaerobic bacteria isolated. Charges/Coding Procedures Integumentary 111xxx-113xx: 11611 Roxi subq tissue 20 sq cm/< Physical Exam Const alert, oriented x3, no apparent distress, average body habitus and healthy appearing General Appearance: cooperative HEENT normocephalic, head/scalp atraumatic, hearing grossly normal bilaterally and external ears normal Head and Scalp: normal to inspection and normocephalic Nose: external nose normal Eyes EOMs intact bilaterally General Eye: normal appearance of both eyes Neck General: normal visual inspection and trachea midline Resp normal respiratory effort, no retractions and no use of accessory muscles Effort and Inspection: able to speak in complete sentences; Negative for labored, stridor or audible wheezes Cardio Rate: regular rate Rhythm: regular rhythm Peripheral Pulses: radial pulses present Extremity normal to inspection and no clubbing, cyanosis or edema Skin Wound Narrative: Pressure ulcer noted to the sacrum. There is epiboly and undermining of the edges of the wound and depth extending into the subcutaneous tissue, does not probe to bone on my exam. No eschar or necrotic tissue noted. Moderate slough, small amount of granulation tissue. No significant drainage, foul odor. Periwound skin with reddish/purple discoloration. Appears smaller in size from last week. Psych mental status grossly normal Appearance: grossly normal Attitude: calm Activity / Motor Behavior: appropriate eye contact Speech: normal speech Debridement Note Debridement Note Wound debrided: Sacral ulcer Laterality: Not Applicable Wound Grade/Stage: 3 Type of Debridement: Excisional debridement Anesthesia Used: 5% Lidocaine Gel Depth: Down to and including healthy tissue and in the subcutaneous layer Percentage of wound debrided: 100 Instrument Used: 5mm curette Severity: Fat Layer Exposed Amount of bleeding with debridement: Mild Bleeding Controlled with: Pressure Patient tolerated procedure: Patient tolerated procedure well Post-Debridement Measurements and Additional Note: Post-Debridement Measurements/Treatment KARIE - Nurse 1 - General Ulcer Assessment Start: 02/07/23 09:03 Freq: Status: Active Protocol: DONNIE Activity Type Activity Date Activity User E-sign Co-sign Detail Recorded Client Recorded Date Recorded By Document 02/07/23 09:03 SOPHIA [id number] 02/07/23 09:22 SOPHIA 02/07/23 09:03 - Today's Visit Information Type of service Initial Visit Arrival Mode Ambulatory Accompanied by Patient Identification Verified (Name & Yes ) Patient Requires Transmission-Based No Precautions Safety Precautions Fall Prevention Height and Weight Height 5 ft 8 in Weight 175 lb Weight in Pounds 175.0 lbs Weight Measurement Method Stated by Patient Body Mass Index (BMI) 26.6 BMI Classification Overweight BSA - Cherelle 1.93 Vital Signs Temperature (97.8 F-99.1 F) 98.1 F Temperature Source Temporal Pulse Rate (60-100) 66 Respiratory Rate (12-18) 18 Respiratory rate source Observation Blood Pressure (90/60-120/80) 165/88 H Blood Pressure Mean (mm Hg) 113 Source Monitor Position Sitting Blood Pressure Location Left Arm History Since Last Visit- (Skip if this is Patient's initial visit) Left Footwear Regular Shoe Right Footwear Regular Shoe Pain Scale: 0-10 Numeric Is Patient Pain Free? Yes Communication Assessment Primary Language Latvian Reactor Operator Required No Able to Read Yes Able to Write Yes Communication Tools None Caregiver Communication Skills No Impairment Impairment Right Hearing Abillity Hard of Hearing ,Use of Hearing Aid Left Hearing Abillity Hard of Hearing Visual Assistive Devices Glasses Teaching Assessment Preferences Verbal,Written Barriers to Learning None Readiness To Learn Excellent Willingness to Engage in Self Management High Activies Readiness to Engage in Self Management High Activities Anxiety Level Calm Cooperation Cooperative Perception Coherent Interest in Health Problem Asks Questions Education Importance Acknowledges Need Smoking Status Never smoker Functional Assessment Recent Decline in Ability to Perform Denies Any Declines Assistive Device With Patient No Culture/Adventism/Risk Control Director Cultural/Adventism Needs that may affect No Treatment Plan Would you allow our hospital beeswax bleacher to No meet you for the purpose of spiritual/ emotional support? Risk Control Director to contact place of uatsdin No WC - Nurse 1 - General Ulcer Measurement Start: 02/07/23 09:03 Freq: Status: Active Protocol: Activity Type Activity Date Activity User E-sign Co-sign Detail Recorded Client Recorded Date Recorded By Document 02/07/23 09:03 SOPHIA [id number] 02/07/23 09:22 KW 02/07/23 09:03 Wound Center Nurse 1 1-Sacrum -Combined with other wound No -Current Size (cm) - Length 0.6 -Current Size (cm) - Width 1.5 -Current Size (cm) - Depth 1.1 -Total Square Cm 0.90 -Photo Taken Yes -Epithelialization Medium 34-66% -Tunneling No -Undermining/Tunneling Yes -Undermining/Tunneling Starts (O'clock 2 ) -Undermining/Tunneling Ends (O'clock) 8 -Maximum Distance (cm) 0.6 -Classification - Pressure Ulcer Stage 3 -Wound Margin Thickened & Rolled Under -Granulation Amt Medium (34-66%) -Granulation Quality [place] -Slough/Fibrin Yes -Necrosis Amt Medium (34-66%) -Structure Exposed Fat Layer Exposed -Texture (Mickie-wound Skin Appearance) Assessed, Scarring -Moisture (Mickie-wound Skin Appearance) No Abnormality, Dry/Scaly -Color (Mickie-wound Skin Appearance) Assessed -Tenderness on Palpation (Mickie-wound Yes Skin Appearance) -Ulcer Cleansing Soap and Water -Foul Odor after Cleansing No -Anesthetic Used 5% Lidocaine Gel Lower Limb Edema Present NA WC - Nurse 2 - General Ulcer CM Notes Start: 02/07/23 09:03 Freq: Status: Active Protocol: Activity Type Activity Date Activity User E-sign Co-sign Detail Recorded Client Recorded Date Recorded By Document 02/07/23 12:06 [email or web address] [id number] 02/07/23 12:08 PL 02/07/23 12:06 Wound Center Nurse 2 1-Sacrum -Time 09:43 -Correct Patient Yes -Correct Side, Site, Position Yes -Correct Procedure Yes -Procedure Performed Yes -Type of Procedure Debridement -Clinical Debridement Subcutaneous -Tissue Removed Subcutaneous -Post Debridement (cm) - Length 0.9 -Post Debridement (cm) - Width 1.5 -Post Debridement (cm) - Depth 1.6 -Total Square (Post) (cm) 1.35 -Area of Debridement (cm) - Length 0.9 -Area of Debridement (cm) - Width 1.5 -Total Square (Area) (cm) 1.35 -Tunneling Yes -Tunneling Position (O'clock) 2 -Tunneling Distance (cm) 1.4 -Undermining/Tunneling Yes -Undermining/Tunneling Starts (O'clock 5 ) -Undermining/Tunneling Ends (O'clock) 10 -Maximum Distance (cm) 0.4 -Circular Undermining No -Wound/Ulcer Outcome Not Healed -Ulcer Cleansing Rinsed/ Irrigated with Saline -Foul Odor after Cleansing No -Bioengineered Tissue No -Bleeding Controlled with Pressure -Treatment Response Procedure Tolerated Well -Debridement - Subq, 1st 20sq cm Yes Pain Scale: 0-10 Numeric Is Patient Pain Free? Yes WC - Nurse 3 - General Ulcer D/C NN Start: 02/07/23 09:03 Freq: Status: Active Protocol: Activity Type Activity Date Activity User E-sign Co-sign Detail Recorded Client Recorded Date Recorded By Document 02/07/23 10:19 [id number] 02/07/23 10:28 02/07/23 10:19 Wound Care Center Nurse 3 1-Sacrum -Ulcer Cleansing Rinsed/ Irrigated with Saline -Foul Odor after Cleansing No -Primary Dressing Applied Hysept ($), Other -Other Dressing DSD -Other Covering foam dressing Pain Scale: 0-10 Numeric Is Patient Pain Free? Yes WC - Visit Discharge Discharge Condition Stable Ambulatory Status Ambulatory Transportation Private Auto Accompanied by Medication Reconcilliation completed & No provided to patient/care provider Clinical Summary of Care Provided Yes Assessment/Plan Assessment/Plan (1) Pressure ulcer of sacral region, stage 3: CODE(S): L89.153 - Pressure ulcer of sacral region, stage 3 PLAN: XR did not show evidence of osteomyelitis, if wound becomes stagnant will consider CT to further evaluate. Wound cultures were negative. Continue Dakins soaked gauze to the wound bed cover with silicone border foam dressing. Emphasized the importance of packing the gauze into the wound. Change the dressing daily or more often as needed to keep clean and dry. Rinse the area with soap and water and pat dry before applying new dressings. It is okay to shower and allow water and soap to run over the area just to ensure patting dry after however do not submerge the wound in water. We discussed the importance of offloading pressure to the area even when there is no pain. I advised that he obtain an eggcrate foam pad to place in the chair/seat sits and most often. If sitting or lying down for prolonged period of time change positions frequently, at least every 30 minutes and try to stand up and walk around a bit every hour. We discussed the benefits of increasing protein in the diet and decreasing carbs/sugar for wound healing. He will return to clinic in 1 week.
[2023-02-14 13:08] VITALS: BP 138/61; PULSE 61; RESP 16; TEMP 36.6; BMI 26.6
--- NOTE | 2023-02-21 08:07 | PCM.WC.PN ---
History of Present Illness Date of Service: 02/21/23 Chief Complaint: Sacral ulcer History of Wound: Patient presents to wound care center today for evaluation and management of sacral pressure ulcer. This wound has been present for 1.5 years. It started when patient was hospitalized, on ventilator in ICU with COVID. It has significantly improved in size since then but has been stagnant in progress for some time now. He had been receiving wound care at the [facility]. He reports that it has never been cultured, he has never had imaging, and he has been following up in 2-month intervals with no debridement to between. His wound care has consisted Samaria and of otherwise leaving the wound open to air/covered with a thin layer of gauze. He has been instructed to keep it dry so he has been covering and taping over the area during showers. He is at this point frustrated with the lack of recent progress and decided to establish care here instead at the recommendation of a family friend. He did suffer from significant weight loss and malnutrition following his hospitalization from [facility]. He has been making positive progress towards weight gain and overall strength over the last several months. Otherwise, his medical history is significant for asthma, hypertension, narcolepsy. He takes baby aspirin daily but no other blood thinners. He has no prior history of similar wounds. He is very active able without any limited mobility. He will use an extra padding on his chair/couch if he is having pain in the area of the wounds, but otherwise does not use padding. He does not have an offloading mattress or pad for his bed. He does weekly cut his grass on a lawnmower, he has 5 to 6 acres. He denies nausea, vomiting, fever, chills, new or worsening pain, drainage, foul odor. Subjective Subjective Patient is doing okay. The evening before yesterday he fell backwards and landed on his bottom and experienced increased pain in the area of the wound. He did not note any bleeding, increased drainage, swelling, or erythema. The pain has been steadily improving and no significant pain here today. Otherwise, no issues with dressing changes. No N/V, F/C. Objective Data Objective Data Vital Signs: Vital Signs Temp Pulse Resp BP O2 Del Method 97.9 F 61 16 138/61 H Room Air 02/14/23 13:08 02/14/23 13:08 02/14/23 13:08 02/14/23 13:08 02/14/23 13:08 Oxygen Delivery Method Room Air Weight: 175 lb Body Mass Index (BMI) 26.6 Lab / Micro Data Micro: Microbiology 02/07/23 10:00 Wound Abcess - Sacral Gram Stain - Final 02/07/23 10:00 Wound Abcess - Sacral Wound Culture - Final No growth aerobically. 02/07/23 10:00 Wound Abcess - Sacral Anaerobic Culture - Final No anaerobic bacteria isolated. Charges/Coding Procedures Integumentary 111xxx-113xx: 89135 Roxi subq tissue 20 sq cm/< Physical Exam Const alert, oriented x3, no apparent distress, average body habitus and healthy appearing General Appearance: cooperative HEENT normocephalic, head/scalp atraumatic, hearing grossly normal bilaterally and external ears normal Head and Scalp: normal to inspection and normocephalic Nose: external nose normal Eyes EOMs intact bilaterally General Eye: normal appearance of both eyes Neck General: normal visual inspection and trachea midline Resp normal respiratory effort, no retractions and no use of accessory muscles Effort and Inspection: able to speak in complete sentences; Negative for labored, stridor or audible wheezes Cardio Rate: regular rate Rhythm: regular rhythm Peripheral Pulses: radial pulses present Extremity normal to inspection and no clubbing, cyanosis or edema Skin Wound Narrative: Pressure ulcer noted to the sacrum. There is epiboly and undermining of the edges of the wound and depth extending into the subcutaneous tissue, does not probe to bone on my exam. No eschar or necrotic tissue noted. Moderate slough, small amount of granulation tissue. No significant drainage, foul odor. Periwound skin with reddish/purple discoloration. Appears smaller in size from last week. Psych mental status grossly normal Appearance: grossly normal Attitude: calm Activity / Motor Behavior: appropriate eye contact Speech: normal speech Debridement Note Debridement Note Wound debrided: Sacral ulcer Laterality: Not Applicable Wound Grade/Stage: 3 Type of Debridement: Excisional debridement Anesthesia Used: 5% Lidocaine Gel Depth: Down to and including healthy tissue and in the subcutaneous layer Percentage of wound debrided: 100 Instrument Used: 5mm curette Severity: Fat Layer Exposed Amount of bleeding with debridement: Mild Bleeding Controlled with: Pressure Patient tolerated procedure: Patient tolerated procedure well Post-Debridement Measurements and Additional Note: Post-Debridement Measurements/Treatment WC - Nurse 1 - General Ulcer Assessment Start: 02/07/23 09:03 Freq: Status: Active Protocol: DONNIE Activity Type Activity Date Activity User E-sign Co-sign Detail Recorded Client Recorded Date Recorded By Document 02/07/23 09:03 [id number] 02/07/23 09:22 KW Document 02/14/23 13:08 [id number] 02/14/23 13:23 KW 02/07/23 02/14/23 09:03 13:08 - Today's Visit Information Type of service Initial Visit Follow-up Visit (Physician/CNA PER DIEM ) Arrival Mode Ambulatory Ambulatory Accompanied by Patient Identification Verified (Name & Yes ) Patient Requires Transmission-Based No No Precautions Safety Precautions Fall Prevention Height and Weight Height 5 ft 8 in Weight 175 lb Weight in Pounds 175.0 lbs Weight Measurement Method Stated by Patient Body Mass Index (BMI) 26.6 26.6 BMI Classification Overweight Overweight BSA - Cherelle 1.93 Vital Signs Temperature (97.8 F-99.1 F) 98.1 F 97.9 F Temperature Source Temporal Temporal Pulse Rate (60-100) 66 61 Pulse Location Monitor Respiratory Rate (12-18) 18 16 Respiratory rate source Observation Observation Oxygen Delivery Method Room Air Blood Pressure (90/60-120/80) 165/88 H 138/61 H Blood Pressure Mean (mm Hg) 113 86 Source Monitor Monitor Position Sitting Sitting Blood Pressure Location Left Arm Right Arm History Since Last Visit- (Skip if this is Patient's initial visit) Have you changed medications since your No last visit? Any new allergies or adverse reactions No Had a fall/change in ADL's that may No increase risk of falls Signs or symptoms of abuse and/or No neglect since last visit Have you been in the hospital since your No last visit? Has dressing in place as prescribed Yes Has compression in place as prescribed N/A Has offloadiing in place as prescribed N/A Experienced any changes in pain level or No management Left Footwear Regular Shoe Regular Shoe Right Footwear Regular Shoe Regular Shoe Pain Scale: 0-10 Numeric Is Patient Pain Free? Yes Yes Communication Assessment Primary Language Dutch Compliance Project Manager Required No Able to Read Yes Able to Write Yes Communication Tools None Caregiver Communication Skills No Impairment Impairment Right Hearing Abillity Hard of Hearing ,Use of Hearing Aid Left Hearing Abillity Hard of Hearing Visual Assistive Devices Glasses Teaching Assessment Preferences Verbal,Written Barriers to Learning None Readiness To Learn Excellent Willingness to Engage in Self Management High Activies Readiness to Engage in Self Management High Activities Anxiety Level Calm Cooperation Cooperative Perception Coherent Interest in Health Problem Asks Questions Education Importance Acknowledges Need Smoking Status Never smoker Functional Assessment Recent Decline in Ability to Perform Denies Any Declines Assistive Device With Patient No Culture/Catholic/Python Web Developer Cultural/Catholic Needs that may affect No Treatment Plan Would you allow our [facility] lead javascript developer to No meet you for the purpose of spiritual/ emotional support? Python Web Developer to contact place of yazidism No WC - Nurse 1 - General Ulcer Measurement Start: 02/07/23 09:03 Freq: Status: Active Protocol: Activity Type Activity Date Activity User E-sign Co-sign Detail Recorded Client Recorded Date Recorded By Document 02/07/23 09:03 [id number] 02/07/23 09:22 Document 02/14/23 13:08 [id number] 02/14/23 13:23 KW 02/07/23 02/14/23 09:03 13:08 Wound Center Nurse 1 1-Sacrum -Combined with other wound No No -Current Size (cm) - Length 0.6 0.5 -Current Size (cm) - Width 1.5 1.0 -Current Size (cm) - Depth 1.1 1.0 -Total Square Cm 0.90 0.50 -Photo Taken Yes No -Epithelialization Medium 34-66% Small 1-33% -Tunneling No -Undermining/Tunneling Yes -Undermining/Tunneling Starts (O'clock 2 ) -Undermining/Tunneling Ends (O'clock) 8 -Maximum Distance (cm) 0.6 -Classification - Pressure Ulcer Stage 3 -Exudate Amt Small -Exudate Type Serosanguineous -Wound Margin Thickened & Distinct, Rolled Under Outline Attached -Granulation Amt Medium (34-66%) Large (67-100%) -Granulation Quality [place],Red -Slough/Fibrin Yes Yes -Necrosis Amt Medium (34-66%) Small (1-33%) -Structure Exposed Fat Layer Exposed -Texture (Mickie-wound Skin Appearance) Assessed, Assessed Scarring -Moisture (Mickie-wound Skin Appearance) No Abnormality, Assessed Dry/Scaly -Color (Mickie-wound Skin Appearance) Assessed Assessed -Temperature (Mickie-wound Skin No Abnormality Appearance) (Pt Warm) -Tenderness on Palpation (Mickie-wound Yes Skin Appearance) -Ulcer Cleansing Soap and Water Rinsed/ Irrigated with Saline -Foul Odor after Cleansing No -Anesthetic Used 5% Lidocaine 5% Lidocaine Gel Gel Lower Limb Edema Present NA NA WC - Nurse 2 - General Ulcer CM Notes Start: 02/07/23 09:03 Freq: Status: Active Protocol: Activity Type Activity Date Activity User E-sign Co-sign Detail Recorded Client Recorded Date Recorded By Document 02/07/23 12:06 PL [id number] 02/07/23 12:08 PL Document 02/14/23 14:34 PL [id number] 02/14/23 14:35 PL 02/07/23 02/14/23 12:06 14:34 Wound Center Nurse 2 1-Sacrum -Time 09:43 13:28 -Correct Patient Yes Yes -Correct Side, Site, Position Yes Yes -Correct Procedure Yes Yes -Procedure Performed Yes Yes -Type of Procedure Debridement Debridement -Clinical Debridement Subcutaneous Subcutaneous -Tissue Removed Subcutaneous Subcutaneous -Post Debridement (cm) - Length 0.9 0.3 -Post Debridement (cm) - Width 1.5 1.4 -Post Debridement (cm) - Depth 1.6 1.5 -Total Square (Post) (cm) 1.35 0.42 -Area of Debridement (cm) - Length 0.9 0.3 -Area of Debridement (cm) - Width 1.5 1.4 -Total Square (Area) (cm) 1.35 0.42 -Tunneling Yes No -Tunneling Position (O'clock) 2 -Tunneling Distance (cm) 1.4 -Undermining/Tunneling Yes No -Undermining/Tunneling Starts (O'clock 5 ) -Undermining/Tunneling Ends (O'clock) 10 -Maximum Distance (cm) 0.4 -Circular Undermining No No -Wound/Ulcer Outcome Not Healed Not Healed -Ulcer Cleansing Rinsed/ Rinsed/ Irrigated with Irrigated with Saline Saline -Foul Odor after Cleansing No No -Bioengineered Tissue No No -Bleeding Controlled with Pressure Pressure -Treatment Response Procedure Procedure Tolerated Well Tolerated Well -Debridement - Subq, 1st 20sq cm Yes Yes Pain Scale: 0-10 Numeric Is Patient Pain Free? Yes Yes - Nurse 3 - General Ulcer D/C NN Start: 02/07/23 09:03 Freq: Status: Active Protocol: Activity Type Activity Date Activity User E-sign Co-sign Detail Recorded Client Recorded Date Recorded By Document 02/07/23 10:19 [id number] 02/07/23 10:28 Document 02/14/23 13:43 [id number] 02/14/23 13:50 KW 02/07/23 02/14/23 10:19 13:43 Wound Care Center Nurse 3 1-Sacrum -Ulcer Cleansing Rinsed/ Rinsed/ Irrigated with Irrigated with Saline Saline -Foul Odor after Cleansing No No -Primary Dressing Applied Hysept ($), Other -Other Dressing DSD -Primary Dressing Covered/Secured with Other -Other Covering foam dressing sample dressing Pain Scale: 0-10 Numeric Is Patient Pain Free? Yes Yes WC - Visit Discharge Discharge Condition Stable Stable Ambulatory Status Ambulatory Ambulatory Transportation Private Auto Private Auto Accompanied by Medication Reconcilliation completed & No No provided to patient/care provider Clinical Summary of Care Provided Yes Yes Assessment/Plan Assessment/Plan (1) Pressure ulcer of sacral region, stage 3: CODE(S): L89.153 - Pressure ulcer of sacral region, stage 3 PLAN: Patient and his take excellent care of the wound. Despite location, I have low level of concern for infection/contamination. At this point, I think he would benefit more from a collagen-based dressing versus the dakins. Will switch to Samaria. Lightly moisten and pack into the wound bed, ensure to pack into the undermined areas. Cover with silicone-bordered foam dressing. Change the dressing daily or more often as needed to keep clean and dry. Rinse the area with soap and water and pat dry before applying new dressings. It is okay to shower and allow water and soap to run over the area just to ensure patting dry after however do not submerge the wound in water. We discussed the importance of offloading pressure to the area even when there is no pain. I advised that he obtain an eggcrate foam pad to place in the chair/seat sits and most often. If sitting or lying down for prolonged period of time change positions frequently, at least every 30 minutes and try to stand up and walk around a bit every hour. We discussed the benefits of increasing protein in the diet and decreasing carbs/sugar for wound healing. He will return to clinic in 1 week.
[2023-02-21 13:51] VITALS: BP 131/62; PULSE 64; RESP 18; TEMP 36.1; BMI 26.6
--- NOTE | 2023-02-28 07:25 | PCM.WC.PN ---
History of Present Illness Date of Service: 02/28/23 Chief Complaint: Sacral ulcer History of Wound: Patient presents to wound care center today for evaluation and management of sacral pressure ulcer. This wound has been present for 1.5 years. It started when patient was hospitalized, on ventilator in ICU with COVID. It has significantly improved in size since then but has been stagnant in progress for some time now. He had been receiving wound care at the [place] [facility]. He reports that it has never been cultured, he has never had imaging, and he has been following up in 2-month intervals with no debridement to between. His wound care has consisted Samaria and of otherwise leaving the wound open to air/covered with a thin layer of gauze. He has been instructed to keep it dry so he has been covering and taping over the area during showers. He is at this point frustrated with the lack of recent progress and decided to establish care here instead at the recommendation of a family friend. He did suffer from significant weight loss and malnutrition following his hospitalization from [facility]. He has been making positive progress towards weight gain and overall strength over the last several months. Otherwise, his medical history is significant for asthma, hypertension, narcolepsy. He takes baby aspirin daily but no other blood thinners. He has no prior history of similar wounds. He is very active able without any limited mobility. He will use an extra padding on his chair/couch if he is having pain in the area of the wounds, but otherwise does not use padding. He does not have an offloading mattress or pad for his bed. He does weekly cut his grass on a lawnmower, he has 5 to 6 acres. He denies nausea, vomiting, fever, chills, new or worsening pain, drainage, foul odor. Subjective Subjective Patient is doing well. No new/worsening pain, erythema, swelling, drainage. No N/V, F/C. No issues with dressing changes Objective Data Objective Data Vital Signs: Vital Signs Temp Pulse Resp BP O2 Del Method 97 F L 64 18 131/62 H Room Air 02/21/23 13:51 02/21/23 13:51 02/21/23 13:51 02/21/23 13:51 02/14/23 13:08 Oxygen Delivery Method Room Air Weight: 175 lb Body Mass Index (BMI) 26.6 Lab / Micro Data Micro: Microbiology 02/07/23 10:00 Wound Abcess - Sacral Gram Stain - Final 02/07/23 10:00 Wound Abcess - Sacral Wound Culture - Final No growth aerobically. 02/07/23 10:00 Wound Abcess - Sacral Anaerobic Culture - Final No anaerobic bacteria isolated. Charges/Coding Procedures Integumentary 111xxx-113xx: 48120 Roxi subq tissue 20 sq cm/< Physical Exam Const alert, oriented x3, no apparent distress, average body habitus and healthy appearing General Appearance: cooperative HEENT normocephalic, head/scalp atraumatic, hearing grossly normal bilaterally and external ears normal Head and Scalp: normal to inspection and normocephalic Nose: external nose normal Eyes EOMs intact bilaterally General Eye: normal appearance of both eyes Neck General: normal visual inspection and trachea midline Resp normal respiratory effort, no retractions and no use of accessory muscles Effort and Inspection: able to speak in complete sentences; Negative for labored, stridor or audible wheezes Cardio Rate: regular rate Rhythm: regular rhythm Peripheral Pulses: radial pulses present Extremity normal to inspection and no clubbing, cyanosis or edema Skin Wound Narrative: Pressure ulcer noted to the sacrum. There is epibole and undermining of the edges of the wound and depth extending into the subcutaneous tissue, does not probe to bone on my exam. No eschar or necrotic tissue noted. Moderate slough, small amount of granulation tissue. No significant drainage, foul odor. Periwound skin with reddish/purple discoloration. Appears smaller in size from last week. Psych mental status grossly normal Appearance: grossly normal Attitude: calm Activity / Motor Behavior: appropriate eye contact Speech: normal speech Debridement Note Debridement Note Wound debrided: Sacral ulcer Laterality: Not Applicable Wound Grade/Stage: 3 Type of Debridement: Excisional debridement Anesthesia Used: 5% Lidocaine Gel Depth: Down to and including healthy tissue and in the subcutaneous layer Percentage of wound debrided: 100 Instrument Used: 5mm curette Severity: Fat Layer Exposed Amount of bleeding with debridement: Mild Bleeding Controlled with: Pressure Patient tolerated procedure: Patient tolerated procedure well Post-Debridement Measurements and Additional Note: Post-Debridement Measurements/Treatment KARIE - Nurse 1 - General Ulcer Assessment Start: 02/07/23 09:03 Freq: Status: Active Protocol: DONNIE Activity Type Activity Date Activity User E-sign Co-sign Detail Recorded Client Recorded Date Recorded By Document 02/07/23 09:03 [id number] 02/07/23 09:22 KW Document 02/14/23 13:08 [id number] 02/14/23 13:23 KW Document 02/21/23 13:51 RB [id number] 02/21/23 13:55 RB 02/07/23 02/14/23 02/21/23 09:03 13:08 13:51 WC - Today's Visit Information Type of service Initial Visit Follow-up Visit Follow-up Visit (Physician/CAREER AND TECHNOLOGY EDUCATION TEACHER (Physician/CAREER AND TECHNOLOGY EDUCATION TEACHER ) ) Arrival Mode Ambulatory Ambulatory Ambulatory Transfer Assistance None Accompanied by Patient Identification Verified (Name & Yes Yes ) Patient Requires Transmission-Based No No No Precautions Safety Precautions Fall Prevention Height and Weight Height 5 ft 8 in Weight 175 lb Weight in Pounds 175.0 lbs Weight Measurement Method Stated by Patient Body Mass Index (BMI) 26.6 26.6 26.6 BMI Classification Overweight Overweight Overweight BSA - Cherelle 1.93 Vital Signs Temperature (97.8 F-99.1 F) 98.1 F 97.9 F 97 F L Temperature Source Temporal Temporal Oral Pulse Rate (60-100) 66 61 64 Pulse Location Monitor Monitor Respiratory Rate (12-18) 18 16 18 Respiratory rate source Observation Observation Observation Oxygen Delivery Method Room Air Blood Pressure (90/60-120/80) 165/88 H 138/61 H 131/62 H Blood Pressure Mean (mm Hg) 113 86 85 Source Monitor Monitor Monitor Position Sitting Sitting Semi-Fowlers Blood Pressure Location Left Arm Right Arm Left Arm History Since Last Visit- (Skip if this is Patient's initial visit) Have you changed medications since your No No last visit? Any new allergies or adverse reactions No No Had a fall/change in ADL's that may No No increase risk of falls Signs or symptoms of abuse and/or No No neglect since last visit Have you been in the hospital since your No No last visit? Has dressing in place as prescribed Yes Yes Has compression in place as prescribed N/A No Has offloadiing in place as prescribed N/A Yes Experienced any changes in pain level or No No management Left Footwear Regular Shoe Regular Shoe Right Footwear Regular Shoe Regular Shoe Pain Scale: 0-10 Numeric Is Patient Pain Free? Yes Yes Yes Communication Assessment Primary Language [place] Security Assessor Required No Able to Read Yes Able to Write Yes Communication Tools None Caregiver Communication Skills No Impairment Impairment Right Hearing Abillity Hard of Hearing ,Use of Hearing Aid Left Hearing Abillity Hard of Hearing Visual Assistive Devices Glasses Teaching Assessment Preferences Verbal,Written Barriers to Learning None Readiness To Learn Excellent Willingness to Engage in Self Management High Activies Readiness to Engage in Self Management High Activities Anxiety Level Calm Cooperation Cooperative Perception Coherent Interest in Health Problem Asks Questions Education Importance Acknowledges Need Smoking Status Never smoker Functional Assessment Recent Decline in Ability to Perform Denies Any Declines Assistive Device With Patient No Culture/Congregational/Em Physician Cultural/Congregational Needs that may affect No Treatment Plan Would you allow our hospital detective private eye to No meet you for the purpose of spiritual/ emotional support? Em Physician to contact place of pentecostal No WC - Nurse 1 - General Ulcer Measurement Start: 02/07/23 09:03 Freq: Status: Active Protocol: Activity Type Activity Date Activity User E-sign Co-sign Detail Recorded Client Recorded Date Recorded By Document 02/07/23 09:03 [id number] 02/07/23 09:22 Document 02/14/23 13:08 [id number] 02/14/23 13:23 Document 02/21/23 13:51 [id number] 02/21/23 13:55 RB 02/07/23 02/14/23 02/21/23 09:03 13:08 13:51 Wound Center Nurse 1 1-Sacrum -Combined with other wound No No No -Current Size (cm) - Length 0.6 0.5 0.6 -Current Size (cm) - Width 1.5 1.0 1 -Current Size (cm) - Depth 1.1 1.0 1 -Total Square Cm 0.90 0.50 0.6 -Photo Taken Yes No No -Epithelialization Medium 34-66% Small 1-33% -Tunneling No No -Undermining/Tunneling Yes Yes -Undermining/Tunneling Starts (O'clock 2 7 ) -Undermining/Tunneling Ends (O'clock) 8 10 -Maximum Distance (cm) 0.6 1.5 -Circular Undermining No -Classification - Pressure Ulcer Stage 3 -Exudate Amt Small Large -Exudate Type Serosanguineous Serosanguineous -Wound Margin Thickened & Distinct, Thickened & Rolled Under Outline Rolled Under Attached -Granulation Amt Medium (34-66%) Large (67-100%) Medium (34-66%) -Granulation Quality Mccausland Mccausland,Red Mccausland -Slough/Fibrin Yes Yes Yes -Necrosis Amt Medium (34-66%) Small (1-33%) Medium (34-66%) -Necrotic Tissue Type Adherent Slough -Structure Exposed Fat Layer N/A Exposed -Texture (Mickie-wound Skin Appearance) Assessed, Assessed Assessed Scarring -Moisture (Mickie-wound Skin Appearance) No Abnormality, Assessed Assessed Dry/Scaly -Color (Mickie-wound Skin Appearance) Assessed Assessed Assessed -Temperature (Mickie-wound Skin No Abnormality No Abnormality Appearance) (Pt Warm) (Pt Warm) -Tenderness on Palpation (Mickie-wound Yes No Skin Appearance) -Ulcer Cleansing Soap and Water Rinsed/ Wound Cleanser Irrigated with Saline -Foul Odor after Cleansing No No -Anesthetic Used 5% Lidocaine 5% Lidocaine 5% Lidocaine Gel Gel Gel Lower Limb Edema Present NA NA WC - Nurse 2 - General Ulcer CM Notes Start: 02/07/23 09:03 Freq: Status: Active Protocol: Activity Type Activity Date Activity User E-sign Co-sign Detail Recorded Client Recorded Date Recorded By Document 02/07/23 12:06 [id number] 02/07/23 12:08 Document 02/14/23 14:34 [id number] 02/14/23 14:35 Document 02/21/23 14:52 MW [id number] 02/21/23 15:02 MW 02/07/23 02/14/23 02/21/23 12:06 14:34 14:52 Wound Center Nurse 2 1-Sacrum -Time 09:43 13:28 14:53 -Correct Patient Yes Yes Yes -Correct Side, Site, Position Yes Yes Yes -Correct Procedure Yes Yes Yes -Procedure Performed Yes Yes Yes -Type of Procedure Debridement Debridement Debridement -Clinical Debridement Subcutaneous Subcutaneous Subcutaneous -Tissue Removed Subcutaneous Subcutaneous Subcutaneous -Post Debridement (cm) - Length 0.9 0.3 0.5 -Post Debridement (cm) - Width 1.5 1.4 1.4 -Post Debridement (cm) - Depth 1.6 1.5 1.0 -Total Square (Post) (cm) 1.35 0.42 0.70 -Area of Debridement (cm) - Length 0.9 0.3 0.5 -Area of Debridement (cm) - Width 1.5 1.4 1.4 -Total Square (Area) (cm) 1.35 0.42 0.70 -Tunneling Yes No No -Tunneling Position (O'clock) 2 -Tunneling Distance (cm) 1.4 -Undermining/Tunneling Yes No Yes -Undermining/Tunneling Starts (O'clock 5 12 ) -Undermining/Tunneling Ends (O'clock) 10 3 -Maximum Distance (cm) 0.4 1.5 -Circular Undermining No No No -Wound/Ulcer Outcome Not Healed Not Healed Not Healed -Ulcer Cleansing Rinsed/ Rinsed/ Rinsed/ Irrigated with Irrigated with Irrigated with Saline Saline Saline -Foul Odor after Cleansing No No No -Bioengineered Tissue No No No -Bleeding Controlled with Pressure Pressure Pressure -Treatment Response Procedure Procedure Procedure Tolerated Well Tolerated Well Tolerated Well -Offloading No -Debridement - Subq, 1st 20sq cm Yes Yes Yes Pain Scale: 0-10 Numeric Is Patient Pain Free? Yes Yes Yes WC - Nurse 3 - General Ulcer D/C NN Start: 02/07/23 09:03 Freq: Status: Active Protocol: Activity Type Activity Date Activity User E-sign Co-sign Detail Recorded Client Recorded Date Recorded By Document 02/07/23 10:19 KW [id number] 02/07/23 10:28 KW Document 02/14/23 13:43 KW [id number] 02/14/23 13:50 KW Document 02/21/23 15:02 MW [id number] 02/21/23 15:03 MW Edit Result 02/21/23 15:02 MW (1) [id number] 02/21/23 15:05 MW (1) 1-Sacrum - Promogran Samaria Matter 2 => 1 02/07/23 02/14/23 02/21/23 10:19 13:43 15:02 Wound Care Center Nurse 3 1-Sacrum -Ulcer Cleansing Rinsed/ Rinsed/ Rinsed/ Irrigated with Irrigated with Irrigated with Saline Saline Saline -Foul Odor after Cleansing No No No -Negative Pressure Wound Therapy N/A -Primary Dressing Applied Hysept ($), Mepilex Border, Other Promogran Samaria Matter -Other Dressing DSD -Primary Dressing Covered/Secured with Other -Other Covering foam dressing sample dressing -Mepilex Border 1 -Promogran Samaria Matter 1 Treatment Response Procedure Tolerated Well Pain Scale: 0-10 Numeric Is Patient Pain Free? Yes Yes Yes Teaching: Wound Center Dressing Your Wound -Person Taught Patient,Family -Teaching Method Discussion, Demonstration -Response to teaching Verbalize understanding WC - Visit Discharge Discharge Condition Stable Stable Stable Ambulatory Status Ambulatory Ambulatory Ambulatory Transportation Private Auto Private Auto Private Auto Accompanied by Medication Reconcilliation completed & No No No provided to patient/care provider Clinical Summary of Care Provided Yes Yes Yes Assessment/Plan Assessment/Plan (1) Pressure ulcer of sacral region, stage 3: CODE(S): L89.153 - Pressure ulcer of sacral region, stage 3 PLAN: Continue with Samaria. Lightly moisten and pack into the wound bed, ensure to pack into the undermined areas. Cover with silicone-bordered foam dressing. Change the dressing daily or more often as needed to keep clean and dry. Rinse the area with soap and water and pat dry before applying new dressings. It is okay to shower and allow water and soap to run over the area just to ensure patting dry after; however, do not submerge the wound in water. We discussed the importance of offloading pressure to the area even when there is no pain. I advised that he obtain an eggcrate foam pad to place in the chair/seat sits and most often. If sitting or lying down for prolonged period of time change positions frequently, at least every 30 minutes and try to stand up and walk around a bit every hour. We discussed the benefits of increasing protein in the diet and decreasing carbs/sugar for wound healing. He will return to clinic in 2 weeks.
[2023-02-28 13:51] VITALS: BP 123/65; PULSE 63; RESP 16; TEMP 36.4; BMI 26.6
== END 2023-02-28 23:59 | disposition home or self-care (01) ==
LOC: WC 14:00
PROVIDERS: PCP Family Medicine; Visit Provider Physician Assistant
DX: L89.153 Pressure ulcer of sacral region, stage 3 (principal); Z79.82 Long term (current) use of aspirin; I10 Essential (primary) hypertension; R63.4 Abnormal weight loss; Z86.16 Personal history of COVID-19; J45.909 Unspecified asthma, uncomplicated; Z79.899 Other long term (current) drug therapy
CPT/HCPCS: 11042; 72220; 87070; 87075; 87205; 99213; G0463

== ENCOUNTER 2023-03-28 09:30 | Outpatient (RCR) | payer MEDICARE, BC, SELFPAY ==
[2023-03-01 01:37] VITALS: BP 123/65; PULSE 63; RESP 16; TEMP 36.4; BMI 26.6
--- NOTE | 2023-03-14 07:18 | PCM.WC.PN ---
History of Present Illness Date of Service: 03/14/23 Chief Complaint: Sacral ulcer History of Wound: Patient presents to wound care center today for evaluation and management of sacral pressure ulcer. This wound has been present for 1.5 years. It started when patient was hospitalized, on ventilator in ICU with COVID. It has significantly improved in size since then but has been stagnant in progress for some time now. He had been receiving wound care at the [facility]. He reports that it has never been cultured, he has never had imaging, and he has been following up in 2-month intervals with no debridement to between. His wound care has consisted Samaria and of otherwise leaving the wound open to air/covered with a thin layer of gauze. He has been instructed to keep it dry so he has been covering and taping over the area during showers. He is at this point frustrated with the lack of recent progress and decided to establish care here instead at the recommendation of a family friend. He did suffer from significant weight loss and malnutrition following his hospitalization from [facility]. He has been making positive progress towards weight gain and overall strength over the last several months. Otherwise, his medical history is significant for asthma, hypertension, narcolepsy. He takes baby aspirin daily but no other blood thinners. He has no prior history of similar wounds. He is very active able without any limited mobility. He will use an extra padding on his chair/couch if he is having pain in the area of the wounds, but otherwise does not use padding. He does not have an offloading mattress or pad for his bed. He does weekly cut his grass on a lawnmower, he has 5 to 6 acres. He denies nausea, vomiting, fever, chills, new or worsening pain, drainage, foul odor. Subjective Subjective No new/increased pain, redness, drainage, odor. He reports only hurts if he sits for too long. He does try to offload pressure as best he can, but still has to mow his very large property. 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 Objective Data Objective Data Vital Signs: Vital Signs Temp Pulse Resp BP 97.6 F L 63 16 123/65 H 03/01/23 01:37 03/01/23 01:37 03/01/23 01:37 03/01/23 01:37 Weight: 175 lb Body Mass Index (BMI) 26.6 Charges/Coding Procedures Integumentary 111xxx-113xx: 14552 Roxi subq tissue 20 sq cm/< Physical Exam Const alert, oriented x3, no apparent distress, average body habitus and healthy appearing General Appearance: cooperative HEENT normocephalic, head/scalp atraumatic, hearing grossly normal bilaterally and external ears normal Head and Scalp: normal to inspection and normocephalic Nose: external nose normal Eyes EOMs intact bilaterally General Eye: normal appearance of both eyes Neck General: normal visual inspection and trachea midline Resp normal respiratory effort, no retractions and no use of accessory muscles Effort and Inspection: able to speak in complete sentences; Negative for labored, stridor or audible wheezes Cardio Rate: regular rate Rhythm: regular rhythm Peripheral Pulses: radial pulses present Extremity normal to inspection and no clubbing, cyanosis or edema Skin Wound Narrative: Pressure ulcer noted to the sacrum. There is epibole of the edges of the wound. There is undermining to about 1.5cm from 1-3 oclock towards the left buttock. Depth slightly improved from last week. No eschar or necrotic tissue noted. No significant drainage, foul odor. Periwound skin with reddish/purple discoloration. Psych mental status grossly normal Appearance: grossly normal Attitude: calm Activity / Motor Behavior: appropriate eye contact Speech: normal speech Debridement Note Debridement Note Wound debrided: Sacral ulcer Laterality: Not Applicable Wound Grade/Stage: 3 Type of Debridement: Excisional debridement Anesthesia Used: 5% Lidocaine Gel Depth: Down to and including healthy tissue and in the subcutaneous layer Percentage of wound debrided: 100 Instrument Used: 5mm curette Severity: Fat Layer Exposed Amount of bleeding with debridement: Mild Bleeding Controlled with: Pressure Patient tolerated procedure: Patient tolerated procedure well Post-Debridement Measurements and Additional Note: Post-Debridement Measurements/Treatment WC - Nurse 1 - General Ulcer Assessment Start: 02/07/23 09:03 Freq: Status: Active Protocol: DONNIE Activity Type Activity Date Activity User E-sign Co-sign Detail Recorded Client Recorded Date Recorded By Document 02/07/23 09:03 [id number] 02/07/23 09:22 KW Document 02/14/23 13:08 [id number] 02/14/23 13:23 KW Document 02/21/23 13:51 RB [id number] 02/21/23 13:55 RB 02/07/23 02/14/23 02/21/23 09:03 13:08 13:51 WC - Today's Visit Information Type of service Initial Visit Follow-up Visit Follow-up Visit (Physician/ATHLETIC EQUIPMENT CUSTODIAN (Physician/ATHLETIC EQUIPMENT CUSTODIAN ) ) Arrival Mode Ambulatory Ambulatory Ambulatory Transfer Assistance None Accompanied by Patient Identification Verified (Name & Yes Yes ) Patient Requires Transmission-Based No No No Precautions Safety Precautions Fall Prevention Height and Weight Height 5 ft 8 in Weight 175 lb Weight in Pounds 175.0 lbs Weight Measurement Method Stated by Patient Body Mass Index (BMI) 26.6 26.6 26.6 BMI Classification Overweight Overweight Overweight BSA - Cherelle 1.93 Vital Signs Temperature (97.8 F-99.1 F) 98.1 F 97.9 F 97 F L Temperature Source Temporal Temporal Oral Pulse Rate (60-100) 66 61 64 Pulse Location Monitor Monitor Respiratory Rate (12-18) 18 16 18 Respiratory rate source Observation Observation Observation Oxygen Delivery Method Room Air Blood Pressure (90/60-120/80) 165/88 H 138/61 H 131/62 H Blood Pressure Mean (mm Hg) 113 86 85 Source Monitor Monitor Monitor Position Sitting Sitting Semi-Fowlers Blood Pressure Location Left Arm Right Arm Left Arm History Since Last Visit- (Skip if this is Patient's initial visit) Have you changed medications since your No No last visit? Any new allergies or adverse reactions No No Had a fall/change in ADL's that may No No increase risk of falls Signs or symptoms of abuse and/or No No neglect since last visit Have you been in the hospital since your No No last visit? Has dressing in place as prescribed Yes Yes Has compression in place as prescribed N/A No Has offloadiing in place as prescribed N/A Yes Experienced any changes in pain level or No No management Left Footwear Regular Shoe Regular Shoe Right Footwear Regular Shoe Regular Shoe Pain Scale: 0-10 Numeric Is Patient Pain Free? Yes Yes Yes Communication Assessment Primary Language Nepali Missile Inspector Preflight Required No Able to Read Yes Able to Write Yes Communication Tools None Caregiver Communication Skills No Impairment Impairment Right Hearing Abillity Hard of Hearing ,Use of Hearing Aid Left Hearing Abillity Hard of Hearing Visual Assistive Devices Glasses Teaching Assessment Preferences Verbal,Written Barriers to Learning None Readiness To Learn Excellent Willingness to Engage in Self Management High Activies Readiness to Engage in Self Management High Activities Anxiety Level Calm Cooperation Cooperative Perception Coherent Interest in Health Problem Asks Questions Education Importance Acknowledges Need Smoking Status Never smoker Functional Assessment Recent Decline in Ability to Perform Denies Any Declines Assistive Device With Patient No Culture/Jew/Supervisor Paper Testing Cultural/Jew Needs that may affect No Treatment Plan Would you allow our hospital television tube inspector to No meet you for the purpose of spiritual/ emotional support? Supervisor Paper Testing to contact place of spiritism No WC - Nurse 1 - General Ulcer Measurement Start: 02/07/23 09:03 Freq: Status: Active Protocol: Activity Type Activity Date Activity User E-sign Co-sign Detail Recorded Client Recorded Date Recorded By Document 02/07/23 09:03 KW [id number] 02/07/23 09:22 KW Document 02/14/23 13:08 KW [id number] 02/14/23 13:23 KW Document 02/21/23 13:51 RB [id number] 02/21/23 13:55 RB 02/07/23 02/14/23 02/21/23 09:03 13:08 13:51 Wound Center Nurse 1 1-Sacrum -Combined with other wound No No No -Current Size (cm) - Length 0.6 0.5 0.6 -Current Size (cm) - Width 1.5 1.0 1 -Current Size (cm) - Depth 1.1 1.0 1 -Total Square Cm 0.90 0.50 0.6 -Photo Taken Yes No No -Epithelialization Medium 34-66% Small 1-33% -Tunneling No No -Undermining/Tunneling Yes Yes -Undermining/Tunneling Starts (O'clock 2 7 ) -Undermining/Tunneling Ends (O'clock) 8 10 -Maximum Distance (cm) 0.6 1.5 -Circular Undermining No -Classification - Pressure Ulcer Stage 3 -Exudate Amt Small Large -Exudate Type Serosanguineous Serosanguineous -Wound Margin Thickened & Distinct, Thickened & Rolled Under Outline Rolled Under Attached -Granulation Amt Medium (34-66%) Large (67-100%) Medium (34-66%) -Granulation Quality Lupton Lupton,Red Lupton -Slough/Fibrin Yes Yes Yes -Necrosis Amt Medium (34-66%) Small (1-33%) Medium (34-66%) -Necrotic Tissue Type Adherent Slough -Structure Exposed Fat Layer N/A Exposed -Texture (Mickie-wound Skin Appearance) Assessed, Assessed Assessed Scarring -Moisture (Mickie-wound Skin Appearance) No Abnormality, Assessed Assessed Dry/Scaly -Color (Mickie-wound Skin Appearance) Assessed Assessed Assessed -Temperature (Mickie-wound Skin No Abnormality No Abnormality Appearance) (Pt Warm) (Pt Warm) -Tenderness on Palpation (Mickie-wound Yes No Skin Appearance) -Ulcer Cleansing Soap and Water Rinsed/ Wound Cleanser Irrigated with Saline -Foul Odor after Cleansing No No -Anesthetic Used 5% Lidocaine 5% Lidocaine 5% Lidocaine Gel Gel Gel Lower Limb Edema Present NA NA WC - Nurse 2 - General Ulcer CM Notes Start: 02/07/23 09:03 Freq: Status: Active Protocol: Activity Type Activity Date Activity User E-sign Co-sign Detail Recorded Client Recorded Date Recorded By Document 02/07/23 12:06 PL [id number] 02/07/23 12:08 PL Document 02/14/23 14:34 PL [id number] 02/14/23 14:35 PL Document 02/21/23 14:52 MW [id number] 02/21/23 15:02 MW 02/07/23 02/14/23 02/21/23 12:06 14:34 14:52 Wound Center Nurse 2 1-Sacrum -Time 09:43 13:28 14:53 -Correct Patient Yes Yes Yes -Correct Side, Site, Position Yes Yes Yes -Correct Procedure Yes Yes Yes -Procedure Performed Yes Yes Yes -Type of Procedure Debridement Debridement Debridement -Clinical Debridement Subcutaneous Subcutaneous Subcutaneous -Tissue Removed Subcutaneous Subcutaneous Subcutaneous -Post Debridement (cm) - Length 0.9 0.3 0.5 -Post Debridement (cm) - Width 1.5 1.4 1.4 -Post Debridement (cm) - Depth 1.6 1.5 1.0 -Total Square (Post) (cm) 1.35 0.42 0.70 -Area of Debridement (cm) - Length 0.9 0.3 0.5 -Area of Debridement (cm) - Width 1.5 1.4 1.4 -Total Square (Area) (cm) 1.35 0.42 0.70 -Tunneling Yes No No -Tunneling Position (O'clock) 2 -Tunneling Distance (cm) 1.4 -Undermining/Tunneling Yes No Yes -Undermining/Tunneling Starts (O'clock 5 12 ) -Undermining/Tunneling Ends (O'clock) 10 3 -Maximum Distance (cm) 0.4 1.5 -Circular Undermining No No No -Wound/Ulcer Outcome Not Healed Not Healed Not Healed -Ulcer Cleansing Rinsed/ Rinsed/ Rinsed/ Irrigated with Irrigated with Irrigated with Saline Saline Saline -Foul Odor after Cleansing No No No -Bioengineered Tissue No No No -Bleeding Controlled with Pressure Pressure Pressure -Treatment Response Procedure Procedure Procedure Tolerated Well Tolerated Well Tolerated Well -Offloading No -Debridement - Subq, 1st 20sq cm Yes Yes Yes Pain Scale: 0-10 Numeric Is Patient Pain Free? Yes Yes Yes WC - Nurse 3 - General Ulcer D/C NN Start: 02/07/23 09:03 Freq: Status: Active Protocol: Activity Type Activity Date Activity User E-sign Co-sign Detail Recorded Client Recorded Date Recorded By Document 02/07/23 10:19 KW [id number] 02/07/23 10:28 KW Document 02/14/23 13:43 KW [id number] 02/14/23 13:50 KW Document 02/21/23 15:02 MW [id number] 02/21/23 15:03 MW Edit Result 02/21/23 15:02 MW (1) [id number] 02/21/23 15:05 MW (1) 1-Sacrum - Promogran Samaria Matter 2 => 1 02/07/23 02/14/23 02/21/23 10:19 13:43 15:02 Wound Care Center Nurse 3 1-Sacrum -Ulcer Cleansing Rinsed/ Rinsed/ Rinsed/ Irrigated with Irrigated with Irrigated with Saline Saline Saline -Foul Odor after Cleansing No No No -Negative Pressure Wound Therapy N/A -Primary Dressing Applied Hysept ($), Mepilex Border, Other Promogran Samaria Matter -Other Dressing DSD -Primary Dressing Covered/Secured with Other -Other Covering foam dressing sample dressing -Mepilex Border 1 -Promogran Samaria Matter 1 Treatment Response Procedure Tolerated Well Pain Scale: 0-10 Numeric Is Patient Pain Free? Yes Yes Yes Teaching: Wound Center Dressing Your Wound -Person Taught Patient,Family -Teaching Method Discussion, Demonstration -Response to teaching Verbalize understanding WC - Visit Discharge Discharge Condition Stable Stable Stable Ambulatory Status Ambulatory Ambulatory Ambulatory Transportation Private Auto Private Auto Private Auto Accompanied by Medication Reconcilliation completed & No No No provided to patient/care provider Clinical Summary of Care Provided Yes Yes Yes Assessment/Plan Assessment/Plan (1) Pressure ulcer of sacral region, stage 3: CODE(S): L89.153 - Pressure ulcer of sacral region, stage 3 PLAN: Continue with Samaria. Lightly moisten and pack into the wound bed, ensure to pack into the undermined areas. Cover with silicone-bordered foam dressing. Change the dressing daily or more often as needed to keep clean and dry. Rinse the area with soap and water and pat dry before applying new dressings. Do not submerge the wound in water. Given continued delayed healing, will proceed with CT scan. No signs/symptoms of infection. We discussed the importance of offloading pressure to the area even when there is no pain. I advised that he obtain an eggcrate foam pad to place in the chair/seat sits and most often. If sitting or lying down for prolonged period of time change positions frequently, at least every 30 minutes and try to stand up and walk around a bit every hour. We discussed the benefits of increasing protein in the diet and decreasing carbs/sugar for wound healing. He will return to clinic in 2 weeks.
[2023-03-14 13:12] VITALS: BP 151/69; PULSE 63; RESP 18; TEMP 36.1; BMI 26.6
--- NOTE | 2023-03-18 12:51 | CT_ITS ---
INDICATION: WOUND EXAMINATION: CT PELVIS BONE - CT Pelvis W/O Contrast Injection TECHNIQUE: Routine noncontrast bone CT protocol was performed of the pelvis. 2-D reformats were performed by the technologist. A radiation dose optimization technique was used for this scan. IV Contrast dosage and agent: None. RADIATION DOSAGE (If Supplied By Facility): CTDIvol = ( 25.78 ) mGy, DLP = ( 1142.11 ) mGycm COMPARISON: Images of the sacrum and coccyx February 07, 2023 FINDINGS: SOFT TISSUES: There is shallow superficial soft tissue ulceration near the level of the upper coccyx. Some underlying mild deeper soft tissue swelling is present. Small hyperdensity along the surface of the ulcer may be a blood clot or portion of a dressing. Incidental note of a left inguinal hernia containing fat and irregular soft tissue density that may be a central phlegmon versus localized edema or hemorrhage. The prostate gland is mildly enlarged, its central lobe mildly elevating and indenting the floor of the urinary bladder. There is some atherosclerotic aortoiliac calcific plaquing. No demonstrated aneurysm. BONES/JOINTS: No acute fracture or subluxation. Normal alignment. There are multilevel mild degenerative changes of the visualized lumbar spine. There is degenerative narrowing of the bilateral sacroiliac joints with anterior and possibly posterior osseous bridging No sclerotic or destructive changes. CT/Pelvis without IV Contrast IMPRESSION: 1. Changes of a superficial sacral decubitus ulcer, as described. No underlying osteomyelitis is demonstrated. 2. Incidental note of a left inguinal hernia containing fat and possible small phlegmon versus localized edema or hemorrhage. 3. Mildly enlarged prostate gland. 4. Degenerative changes of the lumbar spine and sacroiliac joints. Electronically Signed: Cl Napier MD at 13:28 EDT Reading Location ID and State: [id number] / Unknown , Service support ,
[2023-03-28 09:25] VITALS: BP 144/64; PULSE 69; RESP 16; BMI 26.6
--- NOTE | 2023-03-28 10:54 | PCM.WC.PN ---
History of Present Illness Date of Service: 03/28/23 Chief Complaint: Sacral ulcer History of Wound: Patient presents to wound care center today for evaluation and management of sacral pressure ulcer. This wound has been present for 1.5 years. It started when patient was hospitalized, on ventilator in ICU with COVID. It has significantly improved in size since then but has been stagnant in progress for some time now. He had been receiving wound care at the [facility]. He reports that it has never been cultured, he has never had imaging, and he has been following up in 2-month intervals with no debridement to between. His wound care has consisted Samaria and of otherwise leaving the wound open to air/covered with a thin layer of gauze. He has been instructed to keep it dry so he has been covering and taping over the area during showers. He is at this point frustrated with the lack of recent progress and decided to establish care here instead at the recommendation of a family friend. He did suffer from significant weight loss and malnutrition following his hospitalization from [facility]. He has been making positive progress towards weight gain and overall strength over the last several months. Otherwise, his medical history is significant for asthma, hypertension, narcolepsy. He takes baby aspirin daily but no other blood thinners. He has no prior history of similar wounds. He is very active able without any limited mobility. He will use an extra padding on his chair/couch if he is having pain in the area of the wounds, but otherwise does not use padding. He does not have an offloading mattress or pad for his bed. He does weekly cut his grass on a lawnmower, he has 5 to 6 acres. He denies nausea, vomiting, fever, chills, new or worsening pain, drainage, foul odor. Subjective Subjective changes his dressings, still doing well with this and plenty of supplies. They both feel it has made positive progress. Still quite sore at times. He has been taking breaks while mowing as we discussed to try to help reduce pressure to the area. No increased redness, drainage, warmth, swelling and no N/V, F/C. Objective Data Objective Data Vital Signs: Vital Signs Temp Pulse Resp BP O2 Del Method 97.0 F L 69 16 144/64 H Room Air 03/14/23 13:12 03/28/23 09:25 03/28/23 09:25 03/28/23 09:25 03/28/23 09:25 Oxygen Delivery Method Room Air Weight: 175 lb Body Mass Index (BMI) 26.6 Charges/Coding Procedures Integumentary 111xxx-113xx: 09053 Roxi subq tissue 20 sq cm/< Physical Exam Const alert, oriented x3, no apparent distress, average body habitus and healthy appearing General Appearance: cooperative Resp Effort and Inspection: able to speak in complete sentences Skin Wound Narrative: Pressure ulcer noted to the sacrum. There is epibole of the edges of the wound. There is undermining from 1-3 oclock towards the right buttock. Depth slightly improved from last week. No eschar or necrotic tissue noted. No significant drainage, foul odor. Periwound skin with reddish/purple discoloration. Psych mental status grossly normal Appearance: grossly normal Attitude: calm Activity / Motor Behavior: appropriate eye contact Speech: normal speech Debridement Note Debridement Note Wound debrided: Sacral ulcer Laterality: Not Applicable Wound Grade/Stage: 3 Type of Debridement: Excisional debridement Anesthesia Used: 5% Lidocaine Gel Depth: Down to and including healthy tissue and in the subcutaneous layer Percentage of wound debrided: 100 Instrument Used: 3mm curette Severity: Fat Layer Exposed Amount of bleeding with debridement: Mild Bleeding Controlled with: Pressure Patient tolerated procedure: Patient tolerated procedure well Post-Debridement Measurements and Additional Note: Post-Debridement Measurements/Treatment - Nurse 1 - General Ulcer Assessment Start: 03/14/23 13:08 Freq: Status: Active Protocol: DONNIE Activity Type Activity Date Activity User E-sign Co-sign Detail Recorded Client Recorded Date Recorded By Document 03/14/23 13:12 [id number] 03/14/23 13:17 Document 03/28/23 09:25 [facility] [id number] 03/28/23 09:31 [facility] 03/14/23 03/28/23 13:12 09:25 - Today's Visit Information Type of service Follow-up Visit Follow-up Visit (Physician/ENGAGEMENT SPECIALIST (Physician/ENGAGEMENT SPECIALIST ) ) Arrival Mode Ambulatory Ambulatory Transfer Assistance None Accompanied by Patient Identification Verified (Name & Yes Yes ) Patient Requires Transmission-Based No No Precautions Height and Weight Body Mass Index (BMI) 26.6 26.6 BMI Classification Overweight Overweight Vital Signs Temperature (97.8 F-99.1 F) 97.0 F L Temperature Source Temporal Pulse Rate (60-100) 63 69 Pulse Location Monitor Monitor Respiratory Rate (12-18) 18 16 Respiratory rate source Observation Observation Oxygen Delivery Method Room Air Blood Pressure (90/60-120/80) 151/69 H 144/64 H Blood Pressure Mean (mm Hg) 96 90 Source Monitor Monitor Position Sitting Sitting Blood Pressure Location Left Arm Left Arm History Since Last Visit- (Skip if this is Patient's initial visit) Have you changed medications since your No No last visit? Any new allergies or adverse reactions No No Had a fall/change in ADL's that may No No increase risk of falls Signs or symptoms of abuse and/or No No neglect since last visit Have you been in the hospital since your No No last visit? Has dressing in place as prescribed Yes Yes Has compression in place as prescribed N/A N/A Has offloadiing in place as prescribed Yes N/A Experienced any changes in pain level or No No management Left Footwear Regular Shoe Regular Shoe Right Footwear Regular Shoe Regular Shoe Pain Scale: 0-10 Numeric Is Patient Pain Free? Yes Yes WC - Nurse 1 - General Ulcer Measurement Start: 03/14/23 13:08 Freq: Status: Active Protocol: Activity Type Activity Date Activity User E-sign Co-sign Detail Recorded Client Recorded Date Recorded By Document 03/14/23 13:12 [id number] 03/14/23 13:17 Document 03/28/23 09:25 [facility] [id number] 03/28/23 09:31 [facility] 03/14/23 03/28/23 13:12 09:25 Wound Center Nurse 1 1-Sacrum -Combined with other wound No No -Current Size (cm) - Length 0.4 0.3 -Current Size (cm) - Width 1.0 1.1 -Current Size (cm) - Depth 1.0 0.5 -Total Square Cm 0.40 0.33 -Date of Last Picture (Recall this 03/28/23 field) -Photo Taken Yes Yes -Epithelialization Small 1-33% None Present -Tunneling No No -Undermining/Tunneling No No -Circular Undermining No No -Exudate Amt Medium Medium -Exudate Type Serosanguineous Serosanguineous -Wound Margin Flat & Intact Thickened -Granulation Amt Medium (34-66%) Large (67-100%) -Granulation Quality [place] Red -Slough/Fibrin Yes Yes -Necrosis Amt Small (1-33%) Small (1-33%) -Necrotic Tissue Type Adherent Slough Adherent Slough -Structure Exposed N/A -Texture (Mickie-wound Skin Appearance) Assessed Assessed, Scarring -Moisture (Mickie-wound Skin Appearance) Assessed, Assessed Maceration -Color (Mickie-wound Skin Appearance) Assessed Assessed -Temperature (Mickie-wound Skin No Abnormality No Abnormality Appearance) (Pt Warm) (Pt Warm) -Tenderness on Palpation (Mickie-wound No No Skin Appearance) -Ulcer Cleansing Rinsed/ Rinsed/ Irrigated with Irrigated with Saline Saline -Foul Odor after Cleansing No No -Anesthetic Used 5% Lidocaine 5% Lidocaine Gel Gel Lower Limb Edema Present NA WC - Nurse 2 - General Ulcer CM Notes Start: 03/14/23 13:08 Freq: Status: Active Protocol: Activity Type Activity Date Activity User E-sign Co-sign Detail Recorded Client Recorded Date Recorded By Document 03/14/23 15:14 PL [id number] 03/14/23 15:14 PL 03/14/23 15:14 Wound Center Nurse 2 -Time 13:37 -Correct Patient Yes -Correct Side, Site, Position Yes -Correct Procedure Yes -Procedure Performed Yes -Type of Procedure Debridement -Clinical Debridement Subcutaneous -Tissue Removed Subcutaneous -Post Debridement (cm) - Length 0.4 -Post Debridement (cm) - Width 1.1 -Post Debridement (cm) - Depth 1.1 -Total Square (Post) (cm) 0.44 -Area of Debridement (cm) - Length 0.4 -Area of Debridement (cm) - Width 1.1 -Total Square (Area) (cm) 0.44 -Tunneling No -Undermining/Tunneling No -Circular Undermining No -Wound/Ulcer Outcome Not Healed -Ulcer Cleansing Rinsed/ Irrigated with Saline -Foul Odor after Cleansing No -Bioengineered Tissue No -Bleeding Controlled with Pressure -Treatment Response Procedure Tolerated Well -Debridement - Subq, 1st 20sq cm Yes Pain Scale: 0-10 Numeric Is Patient Pain Free? Yes - Nurse 3 - General Ulcer D/C NN Start: 03/14/23 13:08 Freq: Status: Active Protocol: Activity Type Activity Date Activity User E-sign Co-sign Detail Recorded Client Recorded Date Recorded By Document 03/14/23 13:57 [id number] 03/14/23 13:59 EMMY 03/14/23 13:57 Wound Care Center Nurse 3 1-Sacrum -Ulcer Cleansing Rinsed/ Irrigated with Saline -Foul Odor after Cleansing No -Primary Dressing Applied Promogran Samaria Matter -Other Dressing mepilex border patient's supply -Promogran Samaria Matter 0 Pain Scale: 0-10 Numeric Is Patient Pain Free? Yes WC - Visit Discharge Discharge Condition Stable Ambulatory Status Ambulatory Transportation Private Auto Medication Reconcilliation completed & Yes provided to patient/care provider Clinical Summary of Care Provided Yes Assessment/Plan Assessment/Plan (1) Pressure ulcer of sacral region, stage 3: CODE(S): L89.153 - Pressure ulcer of sacral region, stage 3 PLAN: Continue with Samaria. Lightly moisten and pack into the wound bed, ensure to pack into the undermined areas. Cover with silicone-bordered foam dressing. Change the dressing daily or more often as needed to keep clean and dry. Rinse the area with soap and water and pat dry before applying new dressings. Do not submerge the wound in water. CT scan revealed no osteomyelitis, no deeper tracking. No signs/symptoms of infection. Again emphasized the importance of offloading pressure to the area even when there is no pain. If sitting or lying down for prolonged period of time change positions frequently, at least every 30 minutes and try to stand up and walk around a bit every hour. We discussed the benefits of increasing protein in the diet and decreasing carbs/sugar for wound healing. He will return to clinic in 2 weeks.
== END 2023-03-31 23:59 | disposition home or self-care (01) ==
LOC: WC 09:30
PROVIDERS: PCP Family Medicine; Visit Provider Physician Assistant
DX: L89.153 Pressure ulcer of sacral region, stage 3 (principal); I10 Essential (primary) hypertension; R63.4 Abnormal weight loss; Z86.16 Personal history of COVID-19; J45.909 Unspecified asthma, uncomplicated; Z79.82 Long term (current) use of aspirin
CPT/HCPCS: 11042; 72192

== ENCOUNTER 2023-05-01 13:00 | Outpatient (RCR) | payer MEDICARE, BC, SELFPAY ==
[2023-04-01 00:38] VITALS: BP 144/64; PULSE 69; RESP 16; TEMP 36.1; BMI 26.6
[2023-04-11 09:27] VITALS: BP 137/67; PULSE 68; RESP 16; TEMP 36.3; BMI 26.6
--- NOTE | 2023-04-11 16:05 | PCM.WC.PN ---
History of Present Illness Date of Service: 04/11/23 Chief Complaint: Sacral ulcer History of Wound: Patient presents to wound care center today for evaluation and management of sacral pressure ulcer. This wound has been present for 1.5 years. It started when patient was hospitalized, on ventilator in ICU with COVID. It has significantly improved in size since then but has been stagnant in progress for some time now. He had been receiving wound care at the [facility]. He reports that it has never been cultured, he has never had imaging, and he has been following up in 2-month intervals with no debridement to between. His wound care has consisted Tristan and of otherwise leaving the wound open to air/covered with a thin layer of gauze. He has been instructed to keep it dry so he has been covering and taping over the area during showers. He is at this point frustrated with the lack of recent progress and decided to establish care here instead at the recommendation of a family friend. He did suffer from significant weight loss and malnutrition following his hospitalization from [facility]. He has been making positive progress towards weight gain and overall strength over the last several months. Otherwise, his medical history is significant for asthma, hypertension, narcolepsy. He takes baby aspirin daily but no other blood thinners. He has no prior history of similar wounds. He is very active able without any limited mobility. He will use an extra padding on his chair/couch if he is having pain in the area of the wounds, but otherwise does not use padding. He does not have an offloading mattress or pad for his bed. He does weekly cut his grass on a lawnmower, he has 5 to 6 acres. He denies nausea, vomiting, fever, chills, new or worsening pain, drainage, foul odor. Subjective Subjective He is doing okay. He reports he has been compliant with offloading measures as we have discussed. He has been trying to watch his diet, increase protein and decrease sugary foods. His reports no issues with dressing changes and no increased drainage, redness, pain, swelling, N/V, F/C. Objective Data Objective Data Vital Signs: Vital Signs Temp Pulse Resp BP O2 Del Method 97.4 F L 68 16 137/67 H Room Air 04/11/23 09:27 04/11/23 09:27 04/11/23 09:27 04/11/23 09:27 04/11/23 09:27 Oxygen Delivery Method Room Air Weight: 175 lb Body Mass Index (BMI) 26.6 Physical Exam Const alert, oriented x3, no apparent distress, average body habitus and healthy appearing General Appearance: cooperative Resp Effort and Inspection: able to speak in complete sentences Skin Wound Narrative: Pressure ulcer noted to the sacrum. There is epibole of the edges of the wound. There is undermining from 1-3 oclock towards the right buttock. Depth stable from last week. No eschar or necrotic tissue noted. No significant drainage, foul odor. Periwound skin with reddish/purple discoloration. Psych mental status grossly normal Appearance: grossly normal Attitude: calm Activity / Motor Behavior: appropriate eye contact Speech: normal speech Debridement Note Debridement Note Wound debrided: Sacral ulcer Laterality: Not Applicable Wound Grade/Stage: 3 Type of Debridement: Excisional debridement Anesthesia Used: 5% Lidocaine Gel Depth: Down to and including healthy tissue and in the subcutaneous layer Percentage of wound debrided: 100 Instrument Used: 3mm curette Severity: Fat Layer Exposed Amount of bleeding with debridement: Mild Bleeding Controlled with: Pressure Patient tolerated procedure: Patient tolerated procedure well Post-Debridement Measurements and Additional Note: Post-Debridement Measurements/Treatment - Nurse 1 - General Ulcer Assessment Start: 04/11/23 09:25 Freq: Status: Active Protocol: DONNIE Activity Type Activity Date Activity User E-sign Co-sign Detail Recorded Client Recorded Date Recorded By Document 04/11/23 09:27 [id number] 04/11/23 09:34 04/11/23 09:27 - Today's Visit Information Type of service Follow-up Visit (Physician/PRODUCT INFO SPECIALIST ) Arrival Mode Ambulatory Transfer Assistance None Accompanied by Patient Identification Verified (Name & Yes ) Patient Requires Transmission-Based No Precautions Safety Precautions NA Height and Weight Body Mass Index (BMI) 26.6 BMI Classification Overweight Vital Signs Temperature (97.8 F-99.1 F) 97.4 F L Temperature Source Temporal Pulse Rate (60-100) 68 Pulse Location Monitor Respiratory Rate (12-18) 16 Respiratory rate source Observation Oxygen Delivery Method Room Air Blood Pressure (90/60-120/80) 137/67 H Blood Pressure Mean (mm Hg) 90 Source Monitor Position Sitting Blood Pressure Location Left Arm History Since Last Visit- (Skip if this is Patient's initial visit) Have you changed medications since your No last visit? Any new allergies or adverse reactions No Had a fall/change in ADL's that may No increase risk of falls Signs or symptoms of abuse and/or No neglect since last visit Have you been in the hospital since your No last visit? Has dressing in place as prescribed Yes Has compression in place as prescribed N/A Has offloadiing in place as prescribed N/A Experienced any changes in pain level or No management Left Footwear Regular Shoe Right Footwear Regular Shoe Pain Scale: 0-10 Numeric Is Patient Pain Free? Yes WC - Nurse 1 - General Ulcer Measurement Start: 04/11/23 09:25 Freq: Status: Active Protocol: Activity Type Activity Date Activity User E-sign Co-sign Detail Recorded Client Recorded Date Recorded By Document 04/11/23 09:27 MW [id number] 04/11/23 09:34 MW 04/11/23 09:27 Wound Center Nurse 1 1-Sacrum -Combined with other wound No -Current Size (cm) - Length 0.2 -Current Size (cm) - Width 0.5 -Current Size (cm) - Depth 0.9 -Total Square Cm 0.10 -Photo Taken No -Epithelialization Small 1-33% -Tunneling No -Undermining/Tunneling No -Circular Undermining No -Exudate Amt Small -Exudate Type Serosanguineous -Wound Margin Indistinct, Non -Visible -Texture (Mickie-wound Skin Appearance) Assessed, Scarring -Moisture (Mickie-wound Skin Appearance) Assessed, Maceration -Color (Mickie-wound Skin Appearance) No Abnormality, Assessed -Temperature (Mickie-wound Skin No Abnormality Appearance) (Pt Warm) -Tenderness on Palpation (Mickie-wound No Skin Appearance) -Ulcer Cleansing Rinsed/ Irrigated with Saline -Foul Odor after Cleansing No -Anesthetic Used 5% Lidocaine Gel Lower Limb Edema Present No WC - Nurse 2 - General Ulcer CM Notes Start: 04/11/23 09:25 Freq: Status: Active Protocol: Activity Type Activity Date Activity User E-sign Co-sign Detail Recorded Client Recorded Date Recorded By Document 04/11/23 15:37 PL [id number] 04/11/23 15:38 PL 04/11/23 15:37 Wound Center Nurse 2 1-Sacrum -Time 09:46 -Correct Patient Yes -Correct Side, Site, Position Yes -Correct Procedure Yes -Procedure Performed Yes -Type of Procedure Debridement -Clinical Debridement Subcutaneous -Tissue Removed Subcutaneous -Post Debridement (cm) - Length 0.3 -Post Debridement (cm) - Width 1.0 -Post Debridement (cm) - Depth 0.8 -Total Square (Post) (cm) 0.30 -Area of Debridement (cm) - Length 0.3 -Area of Debridement (cm) - Width 1 -Total Square (Area) (cm) 0.3 -Tunneling Yes -Tunneling Position (O'clock) 3 -Tunneling Distance (cm) 1.5 -Circular Undermining No -Wound/Ulcer Outcome Not Healed -Ulcer Cleansing Rinsed/ Irrigated with Saline -Foul Odor after Cleansing No -Bioengineered Tissue No -Bleeding Controlled with Pressure -Treatment Response Procedure Tolerated Well -Debridement - Subq, 1st 20sq cm Yes Pain Scale: 0-10 Numeric Is Patient Pain Free? Yes - Nurse 3 - General Ulcer D/C NN Start: 04/11/23 09:25 Freq: Status: Active Protocol: Activity Type Activity Date Activity User E-sign Co-sign Detail Recorded Client Recorded Date Recorded By Document 04/11/23 10:18 MW [id number] 04/11/23 10:19 MW 04/11/23 10:18 Wound Care Center Nurse 3 1-Sacrum -Ulcer Cleansing Rinsed/ Irrigated with Saline -Foul Odor after Cleansing No -Negative Pressure Wound Therapy N/A -Other Dressing tristan -Other Covering optifoam Treatment Response Procedure Tolerated Well Pain Scale: 0-10 Numeric Is Patient Pain Free? Yes Teaching: Wound Center Dressing Your Wound -Person Taught Patient -Teaching Method Discussion -Response to teaching Verbalize understanding WC - Visit Discharge Discharge Condition Stable Ambulatory Status Ambulatory Transportation Private Auto Accompanied by Medication Reconcilliation completed & No provided to patient/care provider Clinical Summary of Care Provided Yes Assessment/Plan Assessment/Plan (1) Pressure ulcer of sacral region, stage 3: CODE(S): L89.153 - Pressure ulcer of sacral region, stage 3 PLAN: Continue with Tristan. Lightly moisten and pack into the wound bed, ensure to pack into the undermined areas. Cover with silicone-bordered foam dressing. Change the dressing daily or more often as needed to keep clean and dry. Rinse the area with soap and water and pat dry before applying new dressings. Do not submerge the wound in water. CT scan revealed no osteomyelitis, no deeper tracking. No signs/symptoms of infection this week. With continued delayed healing (especially considering wound has been present for over 1.5 years at this point) will refer to Dr. Cagle/Fanny for their opinion. Would like to see if they think patient would benefit from operative debridement with possible axiofill application. Again emphasized the importance of offloading pressure to the area even when there is no pain. If sitting or lying down for prolonged period of time change positions frequently, at least every 30 minutes and try to stand up and walk around a bit every hour. Utilize foam crate cushions for chairs and try to get a foam pad for bed as well to help with offloading. We discussed the benefits of increasing protein in the diet and decreasing carbs/sugar for wound healing. He will return to clinic to see me in 3 weeks.
[2023-04-21 13:33] VITALS: BP 136/64; PULSE 67; RESP 18; TEMP 36.9; BMI 26.6
--- NOTE | 2023-04-21 16:11 | PCM.WC.HP ---
History of Present Illness Date of Service: 04/21/23 Chief Complaint: WOUND CENTER CONSULT Referring Provider: JULIO Irene Jowl Trimmer: Obie Cagle MD Chief Complaint - Sacral pressure sore, Stage IV. History of Wound: Patient presents to wound care center today for evaluation and management of sacral pressure ulcer. This wound has been present for 1.5 years. It started when patient was hospitalized, on ventilator in ICU with COVID. It has significantly improved in size since then but has been stagnant in progress for some time now. He had been receiving wound care at the [place]. He reports that it has never been cultured, he has never had imaging, and he has been following up in 2-month intervals with no debridement to between. His wound care has consisted Tristan and of otherwise leaving the wound open to air/covered with a thin layer of gauze. He has been instructed to keep it dry so he has been covering and taping over the area during showers. He is at this point frustrated with the lack of recent progress and decided to establish care here instead at the recommendation of a family friend. He did suffer from significant weight loss and malnutrition following his hospitalization from COVID. He has been making positive progress towards weight gain and overall strength over the last several months. Otherwise, his medical history is significant for asthma, hypertension, narcolepsy. He takes baby aspirin daily but no other blood thinners. He has no prior history of similar wounds. He is very active and able without any limited mobility. He will use an extra padding on his chair/couch if he is having pain in the area of the pressure ulcer, but otherwise does not use padding. He does not have an offloading mattress or pad for his bed. He does weekly cut his grass on a lawnmower, about 5 to 6 acres. He denies fever. His appetite is ok. CT Pelvis was done on 03/18/23. It showed no sclerotic or destructive changes to suggest osteomyelitis. His last wound culture was done on 02/07/23 - It was negative. I was asked to evaluate this patient for surgical options for treatment. Progress of Wound: Minimal improvement. [facility] Medical History Acute respiratory failure with hypoxia Asthma History of acute respiratory failure Hypertension Narcolepsy Personal history of COVID-19 Pneumonia due to COVID-19 virus Pressure ulcer of sacral region, stage 4 Stroke/cerebrovascular accident Home Medications aspirin 325 mg capsule 325 mg PO DAILY Check with primary doctor 08/04/21 [History Last Taken Unknown] diphenhydramine HCl 50 mg capsule 50 mg PO QHS sleep 08/04/21 [History Last Taken Unknown] enoxaparin 80 mg/0.8 mL subcutaneous syringe 80 mg (0.8 mL) subcut Q12@0600,1800 #0 mL 09/06/21 [Rx Last Taken Unknown] oxycodone 5 mg tablet 10 mg (2 x 5 mg) G-tube Q6H PRN PRN Pain Score 6-10 3 days #10 tabs 09/06/21 [Rx Last Taken Unknown] albuterol 90 mcg/actuation aerosol inhaler 108 mcg inhalation Q4H PRN PRN Shortness Of Breath 02/07/23 [History Last Taken Unknown] atorvastatin 20 mg tablet (Lipitor) 20 mg PO DAILY 02/07/23 [History Last Taken Unknown] cholecalciferol (vitamin D3) 25 mcg (1,000 unit) tablet 25 mcg PO DAILY 02/07/23 [History Last Taken Unknown] clonidine 0.2 mg/24 hr weekly transdermal patch 1 patch transdermal QWEEK 02/07/23 [History Last Taken Unknown] losartan 100 mg-hydrochlorothiazide 25 mg tablet (Hyzaar) 1 tab PO DAILY 02/07/23 [History Last Taken Unknown] metoprolol tartrate 50 mg tablet 50 mg PO BID 02/07/23 [History Last Taken Unknown] omega 3-ztn-lss-fish oil 1,200 mg (144 mg-216 mg) capsule (Fish Oil) 2 cap PO DAILY 02/07/23 [History Last Taken 05/27/23] vitamin E 1,000 unit tablet 1 tab PO .qdaily 02/07/23 [History Last Taken 05/27/23] Allergy/AdvReac Type Severity Reaction Status Date / Time cephalexin [From Keflex] Allergy Rash Verified 05/27/23 19:05 theophylline Allergy Rash Verified 05/27/23 19:05 Family History no significant family his no significant family history Surgical History History of cholecystectomy History of hernia repair Status post insertion of percutaneous endoscopic gastrostomy (PEG) tube Status post tracheostomy Social History Smoking Status: Never smoker ROS ROS Narrative REVIEW OF SYSTEMS General - Denies fever, fatigue. Had weight loss during his hospitalization with COVID. He is steadily regaining the weight. Eyes - Denies cataracts and glaucoma. ENT - Denies nasal congestion and sore throat. Endocrine - Denies excessive thirst and urination. Skin - Denies suspicious lesions and skin cancer. Has sacral pressure sore. Musculoskeletal - Denies joint pain, joint stiffness, weakness of muscles and joints, back pain, and arthritis. Neuro - Denies headaches. Cardiovascular - Denies chest pain, fatigue, and shortness of breath with exertion. History of stroke. Psych - Denies anxiety and depression. Respiratory - Denies chronic cough and shortness of breath. History of COVID pneumonia. Gastrointestinal - Denies nausea, vomiting, diarrhea, and constipation. Hematologic - Denies abnormal bruising and bleeding. Genitourinary - Denies hematuria and urinary frequency. Vital Signs Vital Signs Vital Signs: 04/21/23 13:33 Temperature 98.5 F Temperature Source Temporal Pulse Rate 67 Respiratory Rate 18 Blood Pressure 136/64 H Blood Pressure Mean 88 Weight Weight: 175 lb Body Mass Index (BMI) 26.6 Physical Exam Narrative General - Alert and Oriented HEENT - PERRL. EOMI. Neck - Supple and nontender. Lungs - Clear to auscultation. Heart - Regular rate and rhythm. Abdomen - Soft and nondistended. Extremities - getting stronger since his hospitalization. Able to stand. No inguinal adenopathy. Dorsalis pedis pulses are palpable. Sacral area - Recent sacral pressure that developed during recent hospitalization. Measures 1.5 x 0.5 x 1.0 cm. Muscle is involved. The pressure sore tracks down to the bone. The bone is not exposed. It is a Stage IV pressure sore. Neuro - CN II-XII grossly intact. Psych - Normal mood and affect. Debridement Note Debridement Note Wound debrided: #1 Sacral area. Laterality: Not Applicable Wound Grade/Stage: IV. Type of Debridement: Excisional debridement Anesthesia Used: 5% Lidocaine Gel Depth: Down to and including healthy tissue, in the subcutaneous layer, to muscle and - (muscle is involved. There is some tracking down to bone. However, no bone is exposed.) Percentage of wound debrided: 100 Instrument Used: 3mm curette Tissue Removed: subcutaneous tissue and muscle. Severity: Necrosis of Muscle (muscle is exposed. bone is palpable but not exposed.) Amount of bleeding with debridement: Mild Bleeding Controlled with: Pressure and Compression and gauze Patient tolerated procedure: Patient tolerated procedure well Post-Debridement Measurements and Additional Note: Post-Debridement Measurements/Treatment WC - Nurse 1 - General Ulcer Assessment Start: 04/11/23 09:25 Freq: Status: Active Protocol: DONNIE Activity Type Activity Date Activity User E-sign Co-sign Detail Recorded Client Recorded Date Recorded By Document 04/11/23 09:27 MW [id number] 04/11/23 09:34 MW Document 04/21/23 13:33 PL [id number] 04/21/23 13:34 PL 04/11/23 04/21/23 09:27 13:33 WC - Today's Visit Information Type of service Follow-up Visit Follow-up Visit (Physician/GRADUATE INTERN (Physician/GRADUATE INTERN ) ) Arrival Mode Ambulatory Ambulatory Transfer Assistance None None Accompanied by Patient Identification Verified (Name & Yes Yes ) Patient Requires Transmission-Based No No Precautions Safety Precautions NA Height and Weight Body Mass Index (BMI) 26.6 26.6 BMI Classification Overweight Overweight Vital Signs Temperature (97.8 F-99.1 F) 97.4 F L 98.5 F Temperature Source Temporal Temporal Pulse Rate (60-100) 68 67 Pulse Location Monitor Respiratory Rate (12-18) 16 18 Respiratory rate source Observation Oxygen Delivery Method Room Air Blood Pressure (90/60-120/80) 137/67 H 136/64 H Blood Pressure Mean 90 88 Source Monitor Position Sitting Blood Pressure Location Left Arm History Since Last Visit- (Skip if this is Patient's initial visit) Have you changed medications since your No No last visit? Any new allergies or adverse reactions No No Had a fall/change in ADL's that may No No increase risk of falls Signs or symptoms of abuse and/or No No neglect since last visit Have you been in the hospital since your No No last visit? Has dressing in place as prescribed Yes Yes Has compression in place as prescribed N/A N/A Has offloadiing in place as prescribed N/A N/A Experienced any changes in pain level or No No management Left Footwear Regular Shoe Right Footwear Regular Shoe Pain Scale: 0-10 Numeric Is Patient Pain Free? Yes Yes WC - Nurse 1 - General Ulcer Measurement Start: 04/11/23 09:25 Freq: Status: Active Protocol: Activity Type Activity Date Activity User E-sign Co-sign Detail Recorded Client Recorded Date Recorded By Document 04/11/23 09:27 MW [id number] 04/11/23 09:34 MW 04/11/23 09:27 Wound Center Nurse 1 1-Sacrum -Combined with other wound No -Current Size (cm) - Length 0.2 -Current Size (cm) - Width 0.5 -Current Size (cm) - Depth 0.9 -Total Square Cm 0.10 -Photo Taken No -Epithelialization Small 1-33% -Tunneling No -Undermining/Tunneling No -Circular Undermining No -Exudate Amt Small -Exudate Type Serosanguineous -Wound Margin Indistinct, Non -Visible -Texture (Mickie-wound Skin Appearance) Assessed, Scarring -Moisture (Mickie-wound Skin Appearance) Assessed, Maceration -Color (Mickie-wound Skin Appearance) No Abnormality, Assessed -Temperature (Mickie-wound Skin No Abnormality Appearance) (Pt Warm) -Tenderness on Palpation (Mickie-wound No Skin Appearance) -Ulcer Cleansing Rinsed/ Irrigated with Saline -Foul Odor after Cleansing No -Anesthetic Used 5% Lidocaine Gel Lower Limb Edema Present No WC - Nurse 2 - General Ulcer CM Notes Start: 04/11/23 09:25 Freq: Status: Active Protocol: Activity Type Activity Date Activity User E-sign Co-sign Detail Recorded Client Recorded Date Recorded By Document 04/11/23 15:37 PL [id number] 04/11/23 15:38 PL Document 04/21/23 14:06 [id number] 04/21/23 14:12 [email or web address] 04/11/23 04/21/23 15:37 14:06 Wound Center Nurse 2 1-Sacrum -Time 09:46 14:07 -Correct Patient Yes Yes -Correct Side, Site, Position Yes Yes -Correct Procedure Yes Yes -Procedure Performed Yes Yes -Type of Procedure Debridement Debridement -Clinical Debridement Subcutaneous Muscle / Fascia -Tissue Removed Subcutaneous Muscle,Fascia -Post Debridement (cm) - Length 0.3 0.5 -Post Debridement (cm) - Width 1.0 1.3 -Post Debridement (cm) - Depth 0.8 1.0 -Total Square (Post) (cm) 0.30 0.65 -Area of Debridement (cm) - Length 0.3 0.5 -Area of Debridement (cm) - Width 1 1.3 -Total Square (Area) (cm) 0.3 0.65 -Tunneling Yes No -Tunneling Position (O'clock) 3 -Tunneling Distance (cm) 1.5 -Undermining/Tunneling No -Circular Undermining No No -Wound/Ulcer Outcome Not Healed Not Healed -Ulcer Cleansing Rinsed/ Rinsed/ Irrigated with Irrigated with Saline Saline -Foul Odor after Cleansing No No -Bioengineered Tissue No No -Bleeding Controlled with Pressure Pressure -Treatment Response Procedure Procedure Tolerated Well Tolerated Well -Offloading No -Debridement - Subq, 1st 20sq cm Yes -Debridement - Muscle / Fascia, 1st Yes 20sq cm Pain Scale: 0-10 Numeric Is Patient Pain Free? Yes Yes WC - Nurse 3 - General Ulcer D/C NN Start: 04/11/23 09:25 Freq: Status: Active Protocol: Activity Type Activity Date Activity User E-sign Co-sign Detail Recorded Client Recorded Date Recorded By Document 04/11/23 10:18 MW [id number] 04/11/23 10:19 MW Document 04/21/23 14:35 PL [id number] 04/21/23 14:36 PL 04/11/23 04/21/23 10:18 14:35 Wound Care Center Nurse 3 1-Sacrum -Ulcer Cleansing Rinsed/ Rinsed/ Irrigated with Irrigated with Saline Saline -Foul Odor after Cleansing No No -Negative Pressure Wound Therapy N/A -Other Dressing tristan Prism,foam dressing -Other Covering optifoam Treatment Response Procedure Tolerated Well Pain Scale: 0-10 Numeric Is Patient Pain Free? Yes Yes Teaching: Wound Center Dressing Your Wound -Person Taught Patient -Teaching Method Discussion -Response to teaching Verbalize understanding WC - Visit Discharge Discharge Condition Stable Stable Ambulatory Status Ambulatory Ambulatory Transportation Private Auto Private Auto Accompanied by Medication Reconcilliation completed & No provided to patient/care provider Clinical Summary of Care Provided Yes Yes Medical Records Data Attestation: I reviewed the patient's medical records Lab / Micro Data Attestation: I reviewed the patient's lab results. Study: Pelvis without IV Contrast Date of Exam: 03/18/23 Exam# [id number] Ordering Dr: Hina Hoffmann INDICATION: WOUND EXAMINATION: CT PELVIS BONE - CT Pelvis W/O Contrast Injection TECHNIQUE: Routine noncontrast bone CT protocol was performed of the pelvis. 2-D reformats were performed by the technologist. A radiation dose optimization technique was used for this scan. IV Contrast dosage and agent: None. RADIATION DOSAGE (If Supplied By Facility): CTDIvol = ( 25.78 ) mGy, DLP = ( 1142.11 ) mGycm COMPARISON: Images of the sacrum and coccyx February 07, 2023 FINDINGS: SOFT TISSUES: There is shallow superficial soft tissue ulceration near the level of the upper coccyx. Some underlying mild deeper soft tissue swelling is present. Small hyperdensity along the surface of the ulcer may be a blood clot or portion of a dressing. Incidental note of a left inguinal hernia containing fat and irregular soft tissue density that may be a central phlegmon versus localized edema or hemorrhage. The prostate gland is mildly enlarged, its central lobe mildly elevating and indenting the floor of the urinary bladder. There is some atherosclerotic aortoiliac calcific plaquing. No demonstrated aneurysm. BONES/JOINTS: No acute fracture or subluxation. Normal alignment. There are multilevel mild degenerative changes of the visualized lumbar spine. There is degenerative narrowing of the bilateral sacroiliac joints with anterior and possibly posterior osseous bridging No sclerotic or destructive changes. CT/Pelvis without IV Contrast IMPRESSION: 1. Changes of a superficial sacral decubitus ulcer, as described. No underlying osteomyelitis is demonstrated. 2. Incidental note of a left inguinal hernia containing fat and possible small phlegmon versus localized edema or hemorrhage. 3. Mildly enlarged prostate gland. 4. Degenerative changes of the lumbar spine and sacroiliac joints. Electronically Signed: Cl Napier MD at 13:28 EDT Reading Location ID and State: [id number] / Unknown , Service support , Charges/Coding Visit Charges Office Visits / Consults: 46040 OV L4 New (25 Modifier ICD-10 - L89.154, Z86.16, Z87.09, I63.9) Procedures Integumentary [id number]: [id number] Roxi musc/fascia 20 sq cm/< (ICD-10 - L89.154, Z86.16, Z87.09, I63.9) Assessment/Plan Assessment/Plan (1) Pressure ulcer of sacral region, stage 4: CODE(S): L89.154 - Pressure ulcer of sacral region, stage 4 (2) Personal history of COVID-19: CODE(S): Z86.16 - Personal history of COVID-19 (3) History of acute respiratory failure: CODE(S): Z87.09 - Personal history of other diseases of the respiratory system (4) Stroke/cerebrovascular accident: CODE(S): I63.9 - Cerebral infarction, unspecified PLAN: Plan Patient developed a sacral pressure sore from his hospitalization with COVID pneumonia. Also from a stroke. The patient can take weight off the pressure sore which gives him an edge with the healing process. However, recently progress has been minimal. When this happens, there is abnormal smooth bursal scar tissue present that hinders healing. The sides of the wound cannot communicate with each other if there is abnormal smooth bursal scar tissue present. Therefore the brain will stop sending healing signals because the brain is tricked into believing the wound has healed. Intermittent operative debridement is necessary to freshen up the edges in order for the edges to communicate and to let the brain know we still have a wound present and we still need healing signals. Generally we make the wound bigger, but that is necessary to jumpstart the healing process. It is also easier to adequately pack the pressure sore wound if the base of the wound can be visualized. By extending the edges a little will open up the wound like a book which makes the wound care easier and less painful. The wound care is also more thorough because the dressing goes all the way to the base of the wound. He had a wound culture done on 02/07/23 which was negative. Will need another wound culture prior to surgery. Anticipate increased metabolic demands from the wound. Will check a Prealbumin at the time of the surgical debridement. Encourage nutritional supplementation with protein to help the healing process. He had a CT Pelvis on 03/18/23. It showed no sclerotic or destructive changes to suggest osteomyelitis. At the time of surgery, if the wound looks good then no further CT scan will be done. If there is questionable tissue quality with presence of fat necrosis and the depth of the wound has progressed to involve bone, then a partial ostectomy for osteomyelitis will be done. Postoperatively then a repeat CT Pelvis would be done as well. Because the patient can take pressure off the ulcer by standing, he has a reasonable chance of healing this pressure sore with no flap surgery and possibly may just need a skin graft. He still has a ways to go with regard to getting more strength in his legs. If a flap is necessary, I don't want to use muscle flaps because that would affect his gait being that he is ambulatory. So I would leave the muscles intact and proceed with a fasciocutaneous flap to close the pressure sore wound which may or may not need a skin graft for the donor area. Wound closure is elective and certain criteria need to be addressed. Namely have any wound infection adequately treated and stabilized. And maximizing his nutrition. Prealbumin should ideally be greater than 20. I would still proceed with the flap if it were 18. And with a fasciocutaneous flap, he would need to be on bedrest for 4-6 weeks. The pressure sore is not at risk at this time of developing stool contamination. So there is no indication for a diverting colostomy. However if he develops stool contamination then a diverting colostomy would be necessary. Patient voices understanding. Will schedule the surgery under general anesthesia with a surgical observation overnight stay in the hospital. After surgery, may try wound care with the [facility]. Patient was informed of the risks and complications of the procedure including alternatives to surgery. These were discussed with the patient personally. Patient voices understanding and wishes to proceed. Potential risks and complications included but not inclusive of bleeding, infection, seroma, hematoma, bruising, swelling, loss of sensation to skin, wound breakdown, need for wound care, poor scarring, poor aesthetic outcome, intra operative cardiac or neurologic events, DVT, PE, and reaction to anesthesia. Until the surgery, he will continue his wound care with Tristan and be seen every 1-2 weeks with his primary Wound Center provider, JULIO Irene. As his legs get stronger, he will need physical therapy to help with ambulation and gait training and strengthening. He would also benefit from a specialty bed such as a low air loss one that minimizes pressure. It is more of a necessity after his flap surgery since he will be on bed rest and further pressure injury can develop. Before surgery, all he has to do is stand (with assist) which takes pressure off his skin better than any specialty bed. Those specialty beds are designed more for patients that are paraplegic and confined to bed because pressure on his skin is always present when confined to bed.
[2023-05-01 13:05] VITALS: BP 144/68; PULSE 67; RESP 16; TEMP 35.7; BMI 26.6
--- NOTE | 2023-05-02 00:18 | PCM.WC.PN ---
History of Present Illness Date of Service: 05/02/23 Chief Complaint: Sacral ulcer History of Wound: Patient presents to wound care center today for evaluation and management of sacral pressure ulcer. This wound has been present for 1.5 years. It started when patient was hospitalized, on ventilator in ICU with COVID. It has significantly improved in size since then but has been stagnant in progress for some time now. He had been receiving wound care at the [place] wound center. He reports that it has never been cultured, he has never had imaging, and he has been following up in 2-month intervals with no debridement to between. His wound care has consisted Tristan and of otherwise leaving the wound open to air/covered with a thin layer of gauze. He has been instructed to keep it dry so he has been covering and taping over the area during showers. He is at this point frustrated with the lack of recent progress and decided to establish care here instead at the recommendation of a family friend. He did suffer from significant weight loss and malnutrition following his hospitalization from [facility]. He has been making positive progress towards weight gain and overall strength over the last several months. Otherwise, his medical history is significant for asthma, hypertension, narcolepsy. He takes baby aspirin daily but no other blood thinners. He has no prior history of similar wounds. He is very active able without any limited mobility. He will use an extra padding on his chair/couch if he is having pain in the area of the wounds, but otherwise does not use padding. He does not have an offloading mattress or pad for his bed. He does weekly cut his grass on a lawnmower, he has 5 to 6 acres. He denies nausea, vomiting, fever, chills, new or worsening pain, drainage, foul odor. Subjective Subjective Patient is doing okay this week. His reports she noticed increased redness around the wound earlier this week. No N/V, F/C, increased drainage. No issues with dressing changes. They did see Dr. Cagle on 04/21/23 and report that he offered operative debridement/intervention and they would like to proceed but have not yet heard from their office about scheduling/next steps. Objective Data Objective Data Vital Signs: Vital Signs Temp Pulse Resp BP O2 Del Method 96.3 F L 67 16 144/68 H Room Air 05/01/23 13:05 05/01/23 13:05 05/01/23 13:05 05/01/23 13:05 05/01/23 13:05 Oxygen Delivery Method Room Air Weight: 175 lb Body Mass Index (BMI) 26.6 Charges/Coding Procedures Integumentary 111xxx-113xx: 96673 Roxi subq tissue 20 sq cm/< Physical Exam Const alert, oriented x3, no apparent distress, average body habitus and healthy appearing General Appearance: cooperative Resp Effort and Inspection: able to speak in complete sentences Skin Wound Narrative: Pressure ulcer noted to the sacrum. There is epibole of the edges of the wound. There is undermining from 1-3 oclock towards the right buttock. Depth overall stable from last week. No eschar or necrotic tissue noted. No significant drainage, foul odor. Mildly erythematous on exam today. Psych mental status grossly normal Appearance: grossly normal Attitude: calm Activity / Motor Behavior: appropriate eye contact Speech: normal speech Debridement Note Debridement Note Wound debrided: Sacral ulcer Laterality: Not Applicable Wound Grade/Stage: 3 Type of Debridement: Excisional debridement Anesthesia Used: 5% Lidocaine Gel Depth: Down to and including healthy tissue and in the subcutaneous layer Percentage of wound debrided: 100 Instrument Used: 3mm curette Severity: Fat Layer Exposed Amount of bleeding with debridement: Mild Bleeding Controlled with: Pressure Patient tolerated procedure: Patient tolerated procedure well Post-Debridement Measurements and Additional Note: Post-Debridement Measurements/Treatment - Nurse 1 - General Ulcer Assessment Start: 04/11/23 09:25 Freq: Status: Active Protocol: DONNIE Activity Type Activity Date Activity User E-sign Co-sign Detail Recorded Client Recorded Date Recorded By Document 04/11/23 09:27 MW [id number] 04/11/23 09:34 MW Document 04/21/23 13:33 PL [id number] 04/21/23 13:34 PL Document 05/01/23 13:05 BM [id number] 05/01/23 13:14 BM 04/11/23 04/21/23 05/01/23 09:27 13:33 13:05 - Today's Visit Information Type of service Follow-up Visit Follow-up Visit Follow-up Visit (Physician/GAS APPLIANCE SERVICER (Physician/GAS APPLIANCE SERVICER (Physician/GAS APPLIANCE SERVICER ) ) ) Arrival Mode Ambulatory Ambulatory Ambulatory Transfer Assistance None None None Accompanied by Patient Identification Verified (Name & Yes Yes Yes ) Patient Requires Transmission-Based No No No Precautions Safety Precautions NA Height and Weight Body Mass Index (BMI) 26.6 26.6 26.6 BMI Classification Overweight Overweight Overweight Vital Signs Temperature (97.8 F-99.1 F) 97.4 F L 98.5 F 96.3 F L Temperature Source Temporal Temporal Temporal Pulse Rate (60-100) 68 67 67 Pulse Location Monitor Monitor Respiratory Rate (12-18) 16 18 16 Respiratory rate source Observation Observation Oxygen Delivery Method Room Air Room Air Blood Pressure (90/60-120/80) 137/67 H 136/64 H 144/68 H Blood Pressure Mean (mm Hg) 90 88 93 Source Monitor Monitor Position Sitting Supine Blood Pressure Location Left Arm Right Arm History Since Last Visit- (Skip if this is Patient's initial visit) Have you changed medications since your No No No last visit? Any new allergies or adverse reactions No No No Had a fall/change in ADL's that may No No No increase risk of falls Signs or symptoms of abuse and/or No No No neglect since last visit Have you been in the hospital since your No No No last visit? Has dressing in place as prescribed Yes Yes Yes Has compression in place as prescribed N/A N/A N/A Has offloadiing in place as prescribed N/A N/A N/A Experienced any changes in pain level or No No No management Left Footwear Regular Shoe Regular Shoe Right Footwear Regular Shoe Regular Shoe Pain Scale: 0-10 Numeric Is Patient Pain Free? Yes Yes Yes WC - Nurse 1 - General Ulcer Measurement Start: 04/11/23 09:25 Freq: Status: Active Protocol: Activity Type Activity Date Activity User E-sign Co-sign Detail Recorded Client Recorded Date Recorded By Document 04/11/23 09:27 [id number] 04/11/23 09:34 Document 05/01/23 13:05 [facility] [id number] 05/01/23 13:14 BM 04/11/23 05/01/23 09:27 13:05 Wound Center Nurse 1 1-Sacrum -Combined with other wound No -Current Size (cm) - Length 0.2 0.6 -Current Size (cm) - Width 0.5 0.6 -Current Size (cm) - Depth 0.9 1 -Total Square Cm 0.10 0.36 -Photo Taken No Yes -Epithelialization Small 1-33% -Tunneling No -Undermining/Tunneling No -Undermining/Tunneling Starts (O'clock 1 ) -Undermining/Tunneling Ends (O'clock) 7 -Maximum Distance (cm) 0.9 -Circular Undermining No -Exudate Amt Small Medium -Exudate Type Serosanguineous Yellow/Green -Wound Margin Indistinct, Non Thickened -Visible -Granulation Amt Small (1-33%) -Granulation Quality [place] -Necrosis Amt None Present (0 %) -Structure Exposed N/A -Texture (Mickie-wound Skin Appearance) Assessed, Scarring Scarring -Moisture (Mickie-wound Skin Appearance) Assessed, Maceration Maceration -Color (Mickie-wound Skin Appearance) No Abnormality, No Abnormality Assessed -Temperature (Mickie-wound Skin No Abnormality No Abnormality Appearance) (Pt Warm) (Pt Warm) -Tenderness on Palpation (Mickie-wound No No Skin Appearance) -Ulcer Cleansing Rinsed/ Soap and Water Irrigated with Saline -Foul Odor after Cleansing No No -Anesthetic Used 5% Lidocaine 5% Lidocaine Gel Gel Lower Limb Edema Present No WC - Nurse 2 - General Ulcer CM Notes Start: 04/11/23 09:25 Freq: Status: Active Protocol: Activity Type Activity Date Activity User E-sign Co-sign Detail Recorded Client Recorded Date Recorded By Document 04/11/23 15:37 [id number] 04/11/23 15:38 Document 04/21/23 14:06 [id number] 04/21/23 14:12 Document 05/01/23 17:10 [id number] 05/01/23 17:11 04/11/23 04/21/23 05/01/23 15:37 14:06 17:10 Wound Center Nurse 2 1-Sacrum -Time 09:46 14:07 13:22 -Correct Patient Yes Yes Yes -Correct Side, Site, Position Yes Yes Yes -Correct Procedure Yes Yes Yes -Procedure Performed Yes Yes Yes -Type of Procedure Debridement Debridement Debridement -Clinical Debridement Subcutaneous Muscle / Fascia Subcutaneous -Tissue Removed Subcutaneous Muscle,Fascia Subcutaneous -Post Debridement (cm) - Length 0.3 0.5 1.1 -Post Debridement (cm) - Width 1.0 1.3 0.3 -Post Debridement (cm) - Depth 0.8 1.0 1.2 -Total Square (Post) (cm) 0.30 0.65 0.33 -Area of Debridement (cm) - Length 0.3 0.5 1.1 -Area of Debridement (cm) - Width 1 1.3 0.3 -Total Square (Area) (cm) 0.3 0.65 0.33 -Tunneling Yes No Yes -Tunneling Position (O'clock) 3 3 -Tunneling Distance (cm) 1.5 1.4 -Undermining/Tunneling No -Circular Undermining No No No -Wound/Ulcer Outcome Not Healed Not Healed Not Healed -Ulcer Cleansing Rinsed/ Rinsed/ Rinsed/ Irrigated with Irrigated with Irrigated with Saline Saline Saline -Foul Odor after Cleansing No No No -Bioengineered Tissue No No No -Bleeding Controlled with Pressure Pressure Pressure -Treatment Response Procedure Procedure Procedure Tolerated Well Tolerated Well Tolerated Well -Offloading No -Debridement - Subq, 1st 20sq cm Yes Yes -Debridement - Muscle / Fascia, 1st Yes 20sq cm Pain Scale: 0-10 Numeric Is Patient Pain Free? Yes Yes Yes WC - Nurse 3 - General Ulcer D/C NN Start: 04/11/23 09:25 Freq: Status: Active Protocol: Activity Type Activity Date Activity User E-sign Co-sign Detail Recorded Client Recorded Date Recorded By Document 04/11/23 10:18 MW [id number] 04/11/23 10:19 MW Document 04/21/23 14:35 PL [id number] 04/21/23 14:36 PL Document 05/01/23 13:43 [facility] [id number] 05/01/23 13:43 BMF 04/11/23 04/21/23 05/01/23 10:18 14:35 13:43 Wound Care Center Nurse 3 1-Sacrum -Ulcer Cleansing Rinsed/ Rinsed/ Rinsed/ Irrigated with Irrigated with Irrigated with Saline Saline Saline -Foul Odor after Cleansing No No No -Negative Pressure Wound Therapy N/A -Other Dressing tristan Prism,foam PROMOGRAN, FOAM dressing SACRAL BORDER DRSG -Other Covering optifoam Treatment Response Procedure Procedure Tolerated Well Tolerated Well Pain Scale: 0-10 Numeric Is Patient Pain Free? Yes Yes Yes Teaching: Wound Center Dressing Your Wound -Person Taught Patient -Teaching Method Discussion -Response to teaching Verbalize understanding WC - Visit Discharge Discharge Condition Stable Stable Stable Ambulatory Status Ambulatory Ambulatory Ambulatory Transportation Private Auto Private Auto Private Auto Accompanied by Medication Reconcilliation completed & No provided to patient/care provider Clinical Summary of Care Provided Yes Yes Assessment/Plan Assessment/Plan (1) Pressure ulcer of sacral region, stage 3: CODE(S): L89.153 - Pressure ulcer of sacral region, stage 3 PLAN: Will follow-up with Dr. Cagle's office to help coordinate next steps for patient with respect to operative debridement/intervention. He does indicate that he would like to proceed but is not sure what the next steps would be. Continue with Tristan. Lightly moisten and pack into the wound bed, ensure to pack into the undermined areas. Cover with silicone-bordered foam dressing. Change the dressing daily or more often as needed to keep clean and dry. Rinse the area with soap and water and pat dry before applying new dressings. Do not submerge the wound in water. Wound cultures resulted staph aureus. Initiated Bactrim DS BID x 14 days. Again emphasized the importance of offloading pressure to the area even when there is no pain. If sitting or lying down for prolonged period of time change positions frequently, at least every 30 minutes and try to stand up and walk around a bit every hour. Utilize foam crate cushions for chairs and try to get a foam pad for bed as well to help with offloading. We discussed the benefits of increasing protein in the diet and decreasing carbs/sugar for wound healing. He will return to clinic to see me in 2-3 weeks.
== END 2023-05-01 23:59 | disposition home or self-care (01) ==
LOC: WC 13:00
PROVIDERS: PCP Family Medicine; Visit Provider Physician Assistant
DX: L89.153 Pressure ulcer of sacral region, stage 3 (principal); I10 Essential (primary) hypertension; Z79.82 Long term (current) use of aspirin; J45.909 Unspecified asthma, uncomplicated; Z79.899 Other long term (current) drug therapy
CPT/HCPCS: 11042; 11043; 87070; 87075; 87077; 87186; 87205

== ENCOUNTER 2023-05-29 13:30 | Outpatient (RCR) | payer MEDICARE, BC, SELFPAY ==
[2023-05-02 00:19] VITALS: BP 144/68; PULSE 67; RESP 16; TEMP 35.7; BMI 26.6
[2023-05-15 13:49] VITALS: BP 137/63; PULSE 63; RESP 16; TEMP 36.9; BMI 26.6
--- NOTE | 2023-05-16 08:34 | PN.PCM_ITS ---
History of Present Illness Date of Service: 05/16/23 Chief Complaint: Sacral ulcer History of Wound: Patient presents to wound care center today for evaluation and management of sacral pressure ulcer. This wound has been present for 1.5 years. It started when patient was hospitalized, on ventilator in ICU with COVID. It has significantly improved in size since then but has been stagnant in progress for some time now. He had been receiving wound care at the [place] [facility] center. He reports that it has never been cultured, he has never had imaging, and he has been following up in 2-month intervals with no debridement to between. His wound care has consisted Samaria and of otherwise leaving the wound open to air/covered with a thin layer of gauze. He has been instructed to keep it dry so he has been covering and taping over the area during showers. He is at this point frustrated with the lack of recent progress and decided to establish care here instead at the recommendation of a family friend. He did suffer from significant weight loss and malnutrition following his hospitalization from [facility]. He has been making positive progress towards weight gain and overall strength over the last several months. Otherwise, his medical history is significant for asthma, hypertension, narcolepsy. He takes baby aspirin daily but no other blood thinners. He has no prior history of similar wounds. He is very active able without any limited mobility. He will use an extra padding on his chair/couch if he is having pain in the area of the wounds, but otherwise does not use padding. He does not have an offloading mattress or pad for his bed. He does weekly cut his grass on a lawnmower, he has 5 to 6 acres. He denies nausea, vomiting, fever, chills, new or worsening pain, drainage, foul odor. Subjective Subjective He has been tolerating the Bactrim without issue. Did report today that recently have been changing the dressing every other day versus every day. She notes varying levels of redness around the wound, no increased or purulent drainage or foul odor. He reports no significant pain in the area. They still want to proceed with surgical option with Dr. Cagle, surgery not yet scheduled. Objective Data Objective Data Vital Signs: Vital Signs Temp Pulse Resp BP O2 Del Method 98.4 F 63 16 137/63 H Room Air 05/15/23 13:49 05/15/23 13:49 05/15/23 13:49 05/15/23 13:49 05/15/23 13:49 Oxygen Delivery Method Room Air Weight: 175 lb Body Mass Index (BMI) 26.6 Charges/Coding Procedures Integumentary 111xxx-113xx: 85809 Roxi subq tissue 20 sq cm/< Physical Exam Const alert, oriented x3, no apparent distress, average body habitus and healthy appearing General Appearance: cooperative Resp Effort and Inspection: able to speak in complete sentences Skin Wound Narrative: Pressure ulcer noted to the sacrum. There is epibole of the edges of the wound. There is undermining from 1-3 oclock towards the right buttock. Depth overall stable. No eschar or necrotic tissue noted. No significant drainage, foul odor. Mildly erythematous on exam today. Psych mental status grossly normal Appearance: grossly normal Attitude: calm Activity / Motor Behavior: appropriate eye contact Speech: normal speech Debridement Note Debridement Note Wound debrided: Sacral ulcer Laterality: Not Applicable Wound Grade/Stage: 3 Type of Debridement: Excisional debridement Anesthesia Used: 5% Lidocaine Gel Depth: Down to and including healthy tissue and in the subcutaneous layer Percentage of wound debrided: 100 Instrument Used: 3mm curette Severity: Fat Layer Exposed Amount of bleeding with debridement: Mild Bleeding Controlled with: Pressure Patient tolerated procedure: Patient tolerated procedure well Post-Debridement Measurements and Additional Note: Post-Debridement Measurements/Treatment - Nurse 1 - General Ulcer Assessment Start: 05/15/23 13:49 Freq: Status: Active Protocol: [email or web address] Activity Type Activity Date Activity User E-sign Co-sign Detail Recorded Client Recorded Date Recorded By Document 05/15/23 13:49 [id number] 05/15/23 13:59 05/15/23 13:49 - Today's Visit Information Type of service Follow-up Visit (Physician/LOCOMOTIVE OPERATOR HELPER ) Arrival Mode Ambulatory Accompanied by Patient Identification Verified (Name & Yes ) Height and Weight Body Mass Index (BMI) 26.6 BMI Classification Overweight Vital Signs Temperature (97.8 F-99.1 F) 98.4 F Temperature Source Temporal Pulse Rate (60-100) 63 Pulse Location Monitor Respiratory Rate (12-18) 16 Respiratory rate source Observation Oxygen Delivery Method Room Air Blood Pressure (90/60-120/80) 137/63 H Blood Pressure Mean (mm Hg) 87 Source Monitor Position Sitting Blood Pressure Location Left Arm History Since Last Visit- (Skip if this is Patient's initial visit) Have you changed medications since your No last visit? Any new allergies or adverse reactions No Had a fall/change in ADL's that may No increase risk of falls Signs or symptoms of abuse and/or No neglect since last visit Have you been in the hospital since your No last visit? Has dressing in place as prescribed Yes Has compression in place as prescribed N/A Has offloadiing in place as prescribed N/A Experienced any changes in pain level or No management Left Footwear Regular Shoe Right Footwear Regular Shoe Pain Scale: 0-10 Numeric Is Patient Pain Free? Yes - Nurse 1 - General Ulcer Measurement Start: 05/15/23 13:49 Freq: Status: Active Protocol: Activity Type Activity Date Activity User E-sign Co-sign Detail Recorded Client Recorded Date Recorded By Document 05/15/23 13:49 [id number] 05/15/23 13:59 05/15/23 13:49 Wound Center Nurse 1 1-Sacrum -Current Size (cm) - Length 0.5 -Current Size (cm) - Width 1 -Current Size (cm) - Depth 1.1 -Total Square Cm 0.5 -Undermining/Tunneling Yes -Undermining/Tunneling Starts (O'clock 12 ) -Undermining/Tunneling Ends (O'clock) 12 -Maximum Distance (cm) 1.8 -Wound Margin Thickened -Granulation Amt Small (1-33%) -Granulation Quality Pale -Necrosis Amt Small (1-33%) -Texture (Mickie-wound Skin Appearance) Assessed, Localized Edema -Moisture (Mickie-wound Skin Appearance) Assessed, Maceration -Color (Mickie-wound Skin Appearance) Assessed -Temperature (Mickie-wound Skin No Abnormality Appearance) (Pt Warm) -Ulcer Cleansing Soap and Water -Foul Odor after Cleansing No -Anesthetic Used 4% Lidocaine Solution Lower Limb Edema Present NA - Nurse 2 - General Ulcer CM Notes Start: 05/15/23 13:49 Freq: Status: Active Protocol: Activity Type Activity Date Activity User E-sign Co-sign Detail Recorded Client Recorded Date Recorded By Document 05/15/23 16:29 PL [id number] 05/15/23 16:31 PL 05/15/23 16:29 Wound Center Nurse 2 1-Sacrum -Time 14:04 -Correct Patient Yes -Correct Side, Site, Position Yes -Correct Procedure Yes -Procedure Performed Yes -Type of Procedure Debridement -Clinical Debridement Subcutaneous -Tissue Removed Subcutaneous -Post Debridement (cm) - Length 1.2 -Post Debridement (cm) - Width 0.4 -Post Debridement (cm) - Depth 1.0 -Total Square (Post) (cm) 0.48 -Area of Debridement (cm) - Length 1.2 -Area of Debridement (cm) - Width 0.4 -Total Square (Area) (cm) 0.48 -Tunneling Yes -Tunneling Distance (cm) 1.5 -Circular Undermining No -Wound/Ulcer Outcome Not Healed -Ulcer Cleansing Rinsed/ Irrigated with Saline -Foul Odor after Cleansing No -Bioengineered Tissue No -Bleeding Controlled with Pressure -Treatment Response Procedure Tolerated Well -Debridement - Subq, 1st 20sq cm Yes Pain Scale: 0-10 Numeric Is Patient Pain Free? Yes - Nurse 3 - General Ulcer D/C NN Start: 05/15/23 13:49 Freq: Status: Active Protocol: Activity Type Activity Date Activity User E-sign Co-sign Detail Recorded Client Recorded Date Recorded By Document 05/15/23 16:29 PL [id number] 05/15/23 16:31 PL 05/15/23 16:29 Is Patient Pain Free? Yes Wound Care Center Nurse 3 1-Sacrum -Ulcer Cleansing Rinsed/ Irrigated with Saline -Foul Odor after Cleansing No -Other Dressing Samaria, Foam Dressing - Visit Discharge Discharge Condition Stable Ambulatory Status Ambulatory, Walker Transportation Private Auto Assessment/Plan Assessment/Plan (1) Pressure ulcer of sacral region, stage 3: CODE(S): L89.153 - Pressure ulcer of sacral region, stage 3 PLAN: Patient anticipates proceeding with surgical intervention, but nothing scheduled yet. Wound looked like there had been increased moisture, perhaps due to dressing not being changed often enough. Emphasize importance of daily dressing changes to try to mitigate this. For now, will continue with Samaria. Lightly moisten and pack into the wound bed, ensure to pack into the undermined areas. Cover with silicone-bordered foam dressing. Change the dressing at least once daily or more often as needed to keep clean and dry. Rinse the area with soap and water and pat dry before appl bud new dressings. Do not submerge the wound in water. Continue Bactrim as prescribed. Again emphasized the importance of offloading pressure to the area even when there is no pain. If sitting or lying down for prolonged period of time change positions frequently, at least every 30 minutes and try to stand up and walk around a bit every hour. Utilize foam crate cushions for chairs and try to get a foam pad for bed as well to help with offloading. Encouraged him to increase protein in diet, may consider supplementing with Ensure or Shravan. He will return to clinic to see me in 2 weeks.
[2023-05-29 13:32] VITALS: BP 143/65; PULSE 64; RESP 16; TEMP 36.6; BMI 26.6
--- NOTE | 2023-05-30 12:05 | PN.PCM_ITS ---
History of Present Illness Date of Service: 05/29/23 Chief Complaint: Sacral ulcer History of Wound: Patient presents to wound care center today for evaluation and management of sacral pressure ulcer. This wound has been present for 1.5 years. It started when patient was hospitalized, on ventilator in ICU with COVID. It has significantly improved in size since then but has been stagnant in progress for some time now. He had been receiving wound care at the [place] wound center. He reports that it has never been cultured, he has never had imaging, and he has been following up in 2-month intervals with no debridement to between. His wound care has consisted Samaria and of otherwise leaving the wound open to air/covered with a thin layer of gauze. He has been instructed to keep it dry so he has been covering and taping over the area during showers. He is at this point frustrated with the lack of recent progress and decided to establish care here instead at the recommendation of a family friend. He did suffer from significant weight loss and malnutrition following his hospitalization from [facility]. He has been making positive progress towards weight gain and overall strength over the last several months. Otherwise, his medical history is significant for asthma, hypertension, narcolepsy. He takes baby aspirin daily but no other blood thinners. He has no prior history of similar wounds. He is very active able without any limited mobility. He will use an extra padding on his chair/couch if he is having pain in the area of the wounds, but otherwise does not use padding. He does not have an offloading mattress or pad for his bed. He does weekly cut his grass on a lawnmower, he has 5 to 6 acres. He denies nausea, vomiting, fever, chills, new or worsening pain, drainage, foul odor. Subjective Subjective Awaiting scheduling for operative debridement. His reports intermittent increased redness around the wound, but no increased drainage, increased pain, or foul odor. She has reported this previously as well and subsequent wound cultures were negative. Today, there is no significant erythema or other signs of infection. Objective Data Objective Data Vital Signs: Vital Signs Temp Pulse Resp BP O2 Del Method 97.9 F 64 16 143/65 H Room Air 05/29/23 13:32 05/29/23 13:32 05/29/23 13:32 05/29/23 13:32 05/29/23 13:32 Oxygen Delivery Method Room Air Weight: 175 lb Body Mass Index (BMI) 26.6 Charges/Coding Procedures Integumentary 111xxx-113xx: [id number] Roxi subq tissue 20 sq cm/< Physical Exam Const alert, oriented x3, no apparent distress, average body habitus and healthy appearing General Appearance: cooperative Resp Effort and Inspection: able to speak in complete sentences Skin Wound Narrative: Pressure ulcer noted to the sacrum. There is epibole of the edges of the wound. There is undermining from 1-3 oclock towards the right buttock. Depth overall stable. No eschar or necrotic tissue noted. No significant drainage, foul odor. No significant erythema, excessive warmth, or excessive tenderness. Psych mental status grossly normal Appearance: grossly normal Attitude: calm Activity / Motor Behavior: appropriate eye contact Speech: normal speech Debridement Note Debridement Note Wound debrided: Sacral ulcer Laterality: Not Applicable Wound Grade/Stage: 3 Type of Debridement: Excisional debridement Anesthesia Used: 5% Lidocaine Gel Depth: Down to and including healthy tissue and in the subcutaneous layer Percentage of wound debrided: 100 Instrument Used: 3mm curette Severity: Fat Layer Exposed Amount of bleeding with debridement: Mild Bleeding Controlled with: Pressure Patient tolerated procedure: Patient tolerated procedure well Post-Debridement Measurements and Additional Note: Post-Debridement Measurements/Treatment - Nurse 1 - General Ulcer Assessment Start: 05/15/23 13:49 Freq: Status: Active Protocol: .TATYANA Activity Type Activity Date Activity User E-sign Co-sign Detail Recorded Client Recorded Date Recorded By Document 05/15/23 13:49 [id number] 05/15/23 13:59 Document 05/29/23 13:32 [facility] Desktop 05/29/23 13:42 [facility] 05/15/23 05/29/23 13:49 13:32 - Today's Visit Information Type of service Follow-up Visit Follow-up Visit (Physician/SUPERVIS[employer] (Physician/SUPERVIS[employer] ) ) Arrival Mode Ambulatory Ambulatory Transfer Assistance None Accompanied by Patient Identification Verified (Name & Yes No ) Height and Weight Body Mass Index (BMI) 26.6 26.6 BMI Classification Overweight Overweight Vital Signs Temperature (97.8 F-99.1 F) 98.4 F 97.9 F Temperature Source Temporal Temporal Pulse Rate (60-100) 63 64 Pulse Location Monitor Monitor Respiratory Rate (12-18) 16 16 Respiratory rate source Observation Observation Oxygen Delivery Method Room Air Room Air Blood Pressure (90/60-120/80) 137/63 H 143/65 H Blood Pressure Mean (mm Hg) 87 91 Source Monitor Monitor Position Sitting Sitting Blood Pressure Location Left Arm Left Arm History Since Last Visit- (Skip if this is Patient's initial visit) Have you changed medications since your No No last visit? Any new allergies or adverse reactions No No Had a fall/change in ADL's that may No No increase risk of falls Signs or symptoms of abuse and/or No No neglect since last visit Have you been in the hospital since your No No last visit? Has dressing in place as prescribed Yes Yes Has compression in place as prescribed N/A N/A Has offloadiing in place as prescribed N/A N/A Experienced any changes in pain level or No No management Left Footwear Regular Shoe Regular Shoe Right Footwear Regular Shoe Regular Shoe Pain Scale: 0-10 Numeric Is Patient Pain Free? Yes Yes WC - Nurse 1 - General Ulcer Measurement Start: 05/15/23 13:49 Freq: Status: Active Protocol: Activity Type Activity Date Activity User E-sign Co-sign Detail Recorded Client Recorded Date Recorded By Document 05/15/23 13:49 [id number] 05/15/23 13:59 KW Document 05/29/23 13:32 [facility] Desktop 05/29/23 13:42 [facility] 05/15/23 05/29/23 13:49 13:32 Wound Center Nurse 1 1-Sacrum -Combined with other wound No -Current Size (cm) - Length 0.5 0.3 -Current Size (cm) - Width 1 0.8 -Current Size (cm) - Depth 1.1 1 -Total Square Cm 0.5 0.24 -Date of Last Picture (Recall this 05/29/23 field) -Photo Taken Yes -Epithelialization None Present -Undermining/Tunneling Yes -Undermining/Tunneling Starts (O'clock 12 ) -Undermining/Tunneling Ends (O'clock) 12 -Maximum Distance (cm) 1.8 -Exudate Amt Medium -Exudate Type Serosanguineous -Wound Margin Thickened Distinct, Outline Attached -Granulation Amt Small (1-33%) Large (67-100%) -Granulation Quality Pale Red -Slough/Fibrin Yes -Necrosis Amt Small (1-33%) Small (1-33%) -Necrotic Tissue Type Adherent Slough -Texture (Mickie-wound Skin Appearance) Assessed, Assessed, Localized Edema Scarring -Moisture (Mickie-wound Skin Appearance) Assessed, Assessed Maceration -Color (Mickie-wound Skin Appearance) Assessed Assessed -Temperature (Mickie-wound Skin No Abnormality No Abnormality Appearance) (Pt Warm) (Pt Warm) -Tenderness on Palpation (Mickie-wound No Skin Appearance) -Ulcer Cleansing Soap and Water Rinsed/ Irrigated with Saline -Foul Odor after Cleansing No No -Anesthetic Used 4% Lidocaine 5% Lidocaine Solution Gel Lower Limb Edema Present NA WC - Nurse 2 - General Ulcer CM Notes Start: 05/15/23 13:49 Freq: Status: Active Protocol: Activity Type Activity Date Activity User E-sign Co-sign Detail Recorded Client Recorded Date Recorded By Document 05/15/23 16:29 PL [id number] 05/15/23 16:31 PL Document 05/29/23 14:22 Desktop 05/29/23 14:37 05/15/23 05/29/23 16:29 14:22 Wound Center Nurse 2 1-Sacrum -Time 14:04 14:22 -Correct Patient Yes Yes -Correct Side, Site, Position Yes Yes -Correct Procedure Yes Yes -Procedure Performed Yes Yes -Type of Procedure Debridement Debridement -Clinical Debridement Subcutaneous Subcutaneous -Tissue Removed Subcutaneous Subcutaneous -Post Debridement (cm) - Length 1.2 0.4 -Post Debridement (cm) - Width 0.4 0.9 -Post Debridement (cm) - Depth 1.0 1.3 -Total Square (Post) (cm) 0.48 0.36 -Area of Debridement (cm) - Length 1.2 0.4 -Area of Debridement (cm) - Width 0.4 0.9 -Total Square (Area) (cm) 0.48 0.36 -Tunneling Yes Yes -Tunneling Position (O'clock) 2 -Tunneling Distance (cm) 1.5 2.0 -Undermining/Tunneling No -Circular Undermining No No -Wound/Ulcer Outcome Not Healed Not Healed -Ulcer Cleansing Rinsed/ Rinsed/ Irrigated with Irrigated with Saline Saline -Foul Odor after Cleansing No No -Bioengineered Tissue No No -Bleeding Controlled with Pressure Pressure -Treatment Response Procedure Procedure Tolerated Well Tolerated Well -Pressure Reduction Other -Other Pressure Reduction chair cushion -Debridement - Subq, 1st 20sq cm Yes Yes Pain Scale: 0-10 Numeric Is Patient Pain Free? Yes Yes - Nurse 3 - General Ulcer D/C NN Start: 05/15/23 13:49 Freq: Status: Active Protocol: Activity Type Activity Date Activity User E-sign Co-sign Detail Recorded Client Recorded Date Recorded By Document 05/15/23 16:29 PL [id number] 05/15/23 16:31 PL Document 05/29/23 14:50 [facility] Desktop 05/29/23 14:51 [facility] 05/15/23 05/29/23 16:29 14:50 Pain Scale: 0-10 Numeric Is Patient Pain Free? Yes Yes Wound Care Center Nurse 3 1-Sacrum -Ulcer Cleansing Rinsed/ Rinsed/ Irrigated with Irrigated with Saline Saline -Foul Odor after Cleansing No No -Primary Dressing Applied Promogran Samaria Matter -Other Dressing Samaria, Foam BORDER DRSG- Dressing PTS OWN BRAND PER PREFERENCE -Promogran Samaria Matter 1 Treatment Response Procedure Tolerated Well WC - Visit Discharge Discharge Condition Stable Stable Ambulatory Status Ambulatory, Ambulatory Walker Transportation Private Auto Private Auto Accompanied by Assessment/Plan Assessment/Plan (1) Pressure ulcer of sacral region, stage 3: CODE(S): L89.153 - Pressure ulcer of sacral region, stage 3 PLAN: Plan is to have operative debridement with Dr. Cagle, pending scheduling. For now, will continue with Samaria. Lightly moisten and pack into the wound bed, ensure to pack into the undermined areas. Cover with silicone-bordered foam dressing. Change the dressing at least once daily or more often as needed to keep clean and dry. Rinse the area with soap and water and pat dry before applying new dressings. Do not submerge the wound in water. No signs/symptoms of infection today. Again emphasized the importance of offloading pressure to the area even when there is no pain. If sitting or lying down for prolonged period of time change positions frequently, at least every 30 minutes and try to stand up and walk around a bit every hour. Utilize foam crate cushions for chairs and try to get a foam pad for bed as well to help with offloading. Encouraged him to increase protein in diet, may consider supplementing with Ensure or Shravan. He will return to clinic to see me in 2 weeks.
== END 2023-05-31 23:59 | disposition home or self-care (01) ==
LOC: WC 13:30
PROVIDERS: PCP Family Medicine; Visit Provider Physician Assistant
DX: L89.153 Pressure ulcer of sacral region, stage 3 (principal); I10 Essential (primary) hypertension; Z86.16 Personal history of COVID-19
CPT/HCPCS: 11042

== ENCOUNTER 2023-06-12 13:18 | Outpatient (RCR) | payer MEDICARE, BC, SELFPAY ==
[2023-06-01 00:16] VITALS: BP 143/65; PULSE 64; RESP 16; TEMP 36.6; BMI 26.6
[2023-06-12 13:24] VITALS: BP 139/72; PULSE 63; TEMP 36.6; BMI 26.6
--- NOTE | 2023-06-13 13:39 | PCM.WC.PN ---
History of Present Illness Date of Service: 06/12/23 Chief Complaint: Sacral ulcer History of Wound: Patient presents to wound care center today for evaluation and management of sacral pressure ulcer. This wound has been present for 1.5 years. It started when patient was hospitalized, on ventilator in ICU with COVID. It has significantly improved in size since then but has been stagnant in progress for some time now. He had been receiving wound care at the [place] wound center. He reports that it has never been cultured, he has never had imaging, and he has been following up in 2-month intervals with no debridement to between. His wound care has consisted Samaria and of otherwise leaving the wound open to air/covered with a thin layer of gauze. He has been instructed to keep it dry so he has been covering and taping over the area during showers. He is at this point frustrated with the lack of recent progress and decided to establish care here instead at the recommendation of a family friend. He did suffer from significant weight loss and malnutrition following his hospitalization from [facility] He has been making positive progress towards weight gain and overall strength over the last several months. Otherwise, his medical history is significant for asthma, hypertension, narcolepsy. He takes baby aspirin daily but no other blood thinners. He has no prior history of similar wounds. He is very active able without any limited mobility. He will use an extra padding on his chair/couch if he is having pain in the area of the wounds, but otherwise does not use padding. He does not have an offloading mattress or pad for his bed. He does weekly cut his grass on a lawnmower, he has 5 to 6 acres. He denies nausea, vomiting, fever, chills, new or worsening pain, drainage, foul odor. Subjective Subjective He is doing well. No issues with dressing changes or supplies. No signs/symptoms of infection. He and his informed me that his surgery is now scheduled for next week. Objective Data Objective Data Vital Signs: Vital Signs Temp Pulse Resp BP O2 Del Method 98 F 63 16 139/72 H Room Air 06/12/23 13:24 06/12/23 13:24 06/01/23 00:16 06/12/23 13:24 06/12/23 13:24 Oxygen Delivery Method Room Air Weight: 175 lb Body Mass Index (BMI) 26.6 Physical Exam Const alert, oriented x3, no apparent distress, average body habitus and healthy appearing General Appearance: cooperative Resp Effort and Inspection: able to speak in complete sentences Skin Wound Narrative: Pressure ulcer noted to the sacrum. There is epibole of the edges of the wound. There is undermining from 1-3 oclock towards the right buttock. Depth overall stable. No eschar or necrotic tissue noted. No significant drainage, foul odor. No significant erythema, excessive warmth, or excessive tenderness. Psych mental status grossly normal Appearance: grossly normal Attitude: calm Activity / Motor Behavior: appropriate eye contact Speech: normal speech Debridement Note Debridement Note Wound debrided: Sacral ulcer Laterality: Not Applicable Wound Grade/Stage: 3 Type of Debridement: Excisional debridement Anesthesia Used: 5% Lidocaine Gel Depth: Down to and including healthy tissue and in the subcutaneous layer Percentage of wound debrided: 100 Instrument Used: 3mm curette Severity: Fat Layer Exposed Amount of bleeding with debridement: Mild Bleeding Controlled with: Pressure Patient tolerated procedure: Patient tolerated procedure well Assessment/Plan Assessment/Plan (1) Pressure ulcer of sacral region, stage 3: CODE(S): L89.153 - Pressure ulcer of sacral region, stage 3 PLAN: Plan is to have operative debridement with Dr. Cagle on 06/19/2023 with probable wound vac placement at that time. Discussed with patient and his that following surgery will likely follow with either Dr. Cagle or Fanny here at the wound healing center for ongoing management. Will continue with Samaria. Lightly moisten and pack into the wound bed, ensure to pack into the undermined areas. Cover with silicone-bordered foam dressing. Change the dressing at least once daily or more often as needed to keep clean and dry. Rinse the area with soap and water and pat dry before applying new dressings. Do not submerge the wound in water. No signs/symptoms of infection today. Continue offloading efforts. Continue protein supplementation. Further wound care plan will be pending his surgery with Dr. Cagle.
== END 2023-06-12 15:21 | disposition home or self-care (01) ==
LOC: WC 13:18
PROVIDERS: PCP Family Medicine; Visit Provider Physician Assistant
DX: L89.153 Pressure ulcer of sacral region, stage 3 (principal); I10 Essential (primary) hypertension; Z86.16 Personal history of COVID-19
CPT/HCPCS: 11042

== ENCOUNTER 2023-06-19 09:30 | Observation (INO) | payer MEDICARE, BC, SELFPAY ==
--- NOTE | 2023-06-12 12:34 | EKG12_ITS ---
Test Reason : PRE OP Blood Pressure : / mmHG Vent. Rate : 065 BPM Atrial Rate : 065 BPM P-R Int : 146 ms QRS Dur : 090 ms QT Int : 394 ms P-R-T Axes : 059 052 078 degrees QTc Int : 409 ms Normal sinus rhythm Normal ECG Confirmed by PETER RONDON, SOLO ([id number]), production editor CAMMIE ALLAN ([id number]) on 06/16/2023 2:24:05 PM Referred By: Obie Cagle Confirmed By:SOLO GREEN MD
[2023-06-12 13:24] LABS: Hematocrit 46.9 % (40-54); Hemoglobin 15.3 g/dL (13.0-16.5); Mean Corp Hgb Conc 32.6 g/dL (32-36); Mean Corpuscular Hgb 28.4 pg (27.0-32.0); Mean Corpuscular Volume 87.2 fL (80-94); Mean Platelet Vol. 9.2 fl (6.2-12.0); Platelet Count 271 K/mm3 (150-450); RBC Distribution Width CV 13.6 % (11.6-14.6); RBC Distribution Width SD 42.9 fl (35.1-43.9); Red Blood Count 5.38 M/mm3 (4.6-6.2); White Blood Count 7.1 K/mm3 (4.4-11.0)
[2023-06-12 13:45] LABS: Prothrombin Time (Protime)PT. 13.1 SECONDS (11.7-14.9)
[2023-06-12 13:46] LABS: Partial Thromboplast Time 31.2 Seconds (24.1-36.2)
[2023-06-12 13:47] LABS: AST(SGOT) 13 U/L (15-37); Alanine Aminotransfer ALT/SGPT 25 U/L (16-61); Albumin, Serum 3.5 g/dL (3.2-5.0); Alkaline Phosphatase 82 U/L (45-117); Anion Gap 5 (5-15); BUN 15 mg/dL (7-18); BUN/Creat Ratio 17.5 RATIO (10-20); Bilirubin, Direct 0.11 mg/dL (0.00-0.30); Chloride 106 mmol/L (98-107); Creatinine, Serum 0.86 mg/dL (0.70-1.30); EST Glomerular Filtration Rate 94 mL/min (>60); Est Glom Filt Rate - Afr Amer 113 mL/min (>60); Globulin 4.2 g/dL (2.2-4.2); Glucose 124 mg/dL (74-106); Potassium 3.7 mmol/L (3.5-5.1); Protein, Total 7.7 g/dL (6.4-8.2); Sodium Level 140 mmol/L (136-145)
[2023-06-19] VITALS (10 sets, daily range): BP systolic 104–146; BP diastolic 51–77; PULSE 44–78; RESP 16–18; TEMP 36.3–36.9; O2SAT 92–100; BMI 27.2
[2023-06-19] MEDS: Lactated Ringers 1,000 ML 15 ML IV ×2 (06:22→09:39)
--- NOTE | 2023-06-19 07:26 | HP.PCM_ITS ---
History and Physical Date of Admission: 06/19/23 HISTORY OF PRESENT ILLNESS Patient presents to wound care center today for evaluation and management of sacral pressure ulcer. This wound has been present for 1.5 years. It started when patient was hospitalized, on ventilator in ICU with COVID. It has significantly improved in size since then but has been stagnant in progress for some time now. He had been receiving wound care at the [place] wound center. He reports that it has never been cultured, he has never had imaging, and he has been following up in 2-month intervals with no debridement to between. His wound care has consisted Samaria and of otherwise leaving the wound open to air/covered with a thin layer of gauze. He has been instructed to keep it dry so he has been covering and taping over the area during showers. He is at this point frustrated with the lack of recent progress and decided to establish care here instead at the recommendation of a family friend. He did suffer from significant weight loss and malnutrition following his hospitalization from COVID. He has been making positive progress towards weight gain and overall strength over the last several months. Otherwise, his medical history is significant for asthma, hypertension, narcolepsy. He takes baby aspirin daily but no other blood thinners. He has no prior history of similar wounds. He is very active and able without any limited mobility. He will use an extra padding on his chair/couch if he is having pain in the area of the pressure ulcer, but otherwise does not use padding. He does not have an offloading mattress or pad for his bed. He does weekly cut his grass on a lawnmower, about 5 to 6 acres. He denies fever. His appetite is ok. CT Pelvis was done on 03/18/23. It showed no sclerotic or destructive changes to suggest osteomyelitis. His last wound culture was done on 02/07/23 - It was negative. I was asked to evaluate this patient for surgical options for treatment. PAST MEDICAL HISTORY Acute respiratory failure with hypoxia Asthma History of acute respiratory failure Hypertension Narcolepsy Personal history of COVID-19 Pneumonia due to COVID-19 virus Pressure ulcer of sacral region, stage 4 Stroke/cerebrovascular accident PAST SURGICAL HISTORY History of cholecystectomy History of hernia repair Status post insertion of percutaneous endoscopic gastrostomy (PEG) tube Status post tracheostomy ALLERGIES Keflex Theophylline MEDICATIONS aspirin 325 mg capsule 325 mg PO DAILY Check with primary doctor 08/04/21 [History Last Taken Unknown] diphenhydramine HCl 50 mg capsule 50 mg PO QHS sleep 08/04/21 [History Last Taken Unknown] enoxaparin 80 mg/0.8 mL subcutaneous syringe 80 mg (0.8 mL) subcut Q12@0600,1800 #0 mL 09/06/21 [Rx Last Taken Unknown] oxycodone 5 mg tablet 10 mg (2 x 5 mg) G-tube Q6H PRN PRN Pain Score 6-10 3 days #10 tabs 09/06/21 [Rx Last Taken Unknown] albuterol 90 mcg/actuation aerosol inhaler 108 mcg inhalation Q4H PRN PRN Shortness Of Breath 02/07/23 [History Last Taken Unknown] atorvastatin 20 mg tablet (Lipitor) 20 mg PO DAILY 02/07/23 [History Last Taken Unknown] cholecalciferol (vitamin D3) 25 mcg (1,000 unit) tablet 25 mcg PO DAILY 02/07/23 [History Last Taken Unknown] clonidine 0.2 mg/24 hr weekly transdermal patch 1 patch transdermal QWEEK 02/07/23 [History Last Taken Unknown] losartan 100 mg-hydrochlorothiazide 25 mg tablet (Hyzaar) 1 tab PO DAILY 02/07/23 [History Last Taken Unknown] metoprolol tartrate 50 mg tablet 50 mg PO BID 02/07/23 [History Last Taken Unknown] omega 2-dvq-das-fish oil 1,200 mg (144 mg-216 mg) capsule (Fish Oil) 2 cap PO DAILY 02/07/23 [History Last Taken 05/27/23] vitamin E 1,000 unit tablet 1 tab PO .qdaily 02/07/23 [History Last Taken 05/27/23] FAMILY HISTORY no significant family history SOCIAL HISTORY Smoking Status: Never smoker REVIEW OF SYSTEMS General - Denies fever, fatigue. Had weight loss during his hospitalization with COVID. He is steadily regaining the weight. Eyes - Denies cataracts and glaucoma. ENT - Denies nasal congestion and sore throat. Endocrine - Denies excessive thirst and urination. Skin - Denies suspicious lesions and skin cancer. Has sacral pressure sore. Musculoskeletal - Denies joint pain, joint stiffness, weakness of muscles and joints, back pain, and arthritis. Neuro - Denies headaches. Cardiovascular - Denies chest pain, fatigue, and shortness of breath with exertion. History of stroke. Psych - Denies anxiety and depression. Respiratory - Denies chronic cough and shortness of breath. History of COVID pneumonia. Gastrointestinal - Denies nausea, vomiting, diarrhea, and constipation. Hematologic - Denies abnormal bruising and bleeding. Genitourinary - Denies hematuria and urinary frequency. PHYSICAL EXAMINATION General - Alert and Oriented HEENT - PERRL. EOMI. Neck - Supple and nontender. Lungs - Clear to auscultation. Heart - Regular rate and rhythm. Abdomen - Soft and nondistended. Extremities - getting stronger since his hospitalization. Able to stand. No inguinal adenopathy. Dorsalis pedis pulses are palpable. Sacral area - Recent sacral pressure that developed during recent hospitalization. Measures 1.5 x 0.5 x 1.0 cm. Muscle is involved. The pressure sore tracks down to the bone. The bone is not exposed. It is a Stage IV pressure sore. Neuro - CN II-XII grossly intact. Psych - Normal mood and affect. ASSESSMENT (1) Pressure ulcer of sacral region, stage 4: CODE(S): L89.154 - Pressure ulcer of sacral region, stage 4 (2) Personal history of COVID-19: CODE(S): Z86.16 - Personal history of COVID-19 (3) History of acute respiratory failure: CODE(S): Z87.09 - Personal history of other diseases of the respiratory system (4) Stroke/cerebrovascular accident: CODE(S): I63.9 - Cerebral infarction, unspecified PLAN Patient developed a sacral pressure sore from his hospitalization with COVID pneumonia. Also from a stroke. The patient can take weight off the pressure sore which gives him an edge with the healing process. However, recently progress has been minimal. When this happens, there is abnormal smooth bursal scar tissue present that hinders healing. The sides of the wound cannot communicate with each other if there is abnormal smooth bursal scar tissue present. Therefore the brain will stop sending healing signals because the brain is tricked into believing the wound has healed. Intermittent operative debridement is necessary to freshen up the edges in order for the edges to communicate and to let the brain know we still have a wound present and we still need healing signals. Generally we make the wound bigger, but that is necessary to jumpstart the healing process. It is also easier to adequately pack the pressure sore wound if the base of the wound can be visualized. By extending the edges a little will open up the wound like a book which makes the wound care easier and less painful. The wound care is also more thorough because the dressing goes all the way to the base of the wound. He had a wound culture done on 02/07/23 which was negative. Will need another wound culture prior to surgery. Anticipate increased metabolic demands from the wound. Will check a Prealbumin at the time of the surgical debridement. Encourage nutritional supplementation with protein to help the healing process. He had a CT Pelvis on 03/18/23. It showed no sclerotic or destructive changes to suggest osteomyelitis. At the time of surgery, if the wound looks good then no further CT scan will be done. If there is questionable tissue quality with presence of fat necrosis and the depth of the wound has progressed to involve bone, then a partial ostectomy for osteomyelitis will be done. Postoperatively then a repeat CT Pelvis would be done as well. Because the patient can take pressure off the ulcer by standing, he has a reasonable chance of healing this pressure sore with no flap surgery and possibly may just need a skin graft. He still has a ways to go with regard to getting more strength in his legs. If a flap is necessary, I don't want to use muscle flaps because that would affect his gait being that he is ambulatory. So I would leave the muscles intact and proceed with a fasciocutaneous flap to close the pressure sore wound which may or may not need a skin graft for the donor area. Wound closure is elective and certain criteria need to be addressed. Namely have any wound infection adequately treated and stabilized. And maximizing his nutrition. Prealbumin should ideally be greater than 20. I would still proceed with the flap if it were 18. And with a fasciocutaneous flap, he would need to be on bedrest for 4-6 weeks. The pressure sore is not at risk at this time of developing stool contamination. So there is no indication for a diverting colostomy. However if he develops stool contamination then a diverting colostomy would be necessary. Patient voices understanding. Will schedule the surgery under general anesthesia with a surgical observation overnight stay in the hospital. After surgery, may try wound care with the VAC. Patient was informed of the risks and complications of the procedure including alternatives to surgery. These were discussed with the patient personally. Patient voices understanding and wishes to proceed. Potential risks and complications included but not inclusive of bleeding, infection, seroma, hematoma, bruising, swelling, loss of sensation to skin, wound breakdown, need for wound care, poor scarring, poor aesthetic outcome, intra operative cardiac or neurologic events, DVT, PE, and reaction to anesthesia. Until the surgery, he will continue his wound care with [facility] and be seen every 1-2 weeks with his primary Wound Center provider, JULIO Irene. As his legs get stronger, he will need physical therapy to help with ambulation and gait training and strengthening. He would also benefit from a specialty bed such as a low air loss one that minimizes pressure. It is more of a necessity after his flap surgery since he will be on bed rest and further pressure injury can develop. Before surgery, all he has to do is stand (with assist) which takes pressure off his skin better than any specialty bed. Those specialty beds are designed more for patients that are paraplegic and confined to bed because pressure on his skin is always present when confined to bed.
--- NOTE | 2023-06-19 07:30 | BON_PTH ---
PATIENT: RABIA ALCANTARA LOC: [facility] U#:[id number] AGE/SX: 68/M ROOM: MT315 RE06/19/[address]: Dr. Obie Cagle MD : [id number] BED: 1 DIS: 06/20/2023 SPEC #: [id number] RECD: 06/19/23 09:44 STATUS: PRAVEENA REGwendolyn #: [id number] CHRIS: 06/19/23 07:[address]: Obie Cagle DEPT: SURGICAL PATHOLOGY RECD BY: Jessica Westbrook ENTERED: 06/19/23 11:50 SP TYPE: Bone OTHR DR: Dr. Wilfrido Prado MD Tissues: A - Sacral region B - Sacral region Procedures: Decalcification bone/plaque Surgery Specimen Level IV HEADER OPERATION: Excision sacral pressure sore, stage 4 PRE-OP DIAGNOSIS: Pressure ulcer of sacral region, stage 4 TISSUE SUBMITTED: A - Debrided sacral tissue, B - Debrided sacral bone MICROSCOPIC DIAGNOSIS A. Sacral pressure sore tissue, excision: Focal ulceration, acute and chronic inflammation and granulation tissue reaction. Hyperkeratosis, parakeratosis and pseudoepitheliomatous hyperplasia. B. Sacral bone, excision: Pieces of bone with reactive changes, mild chronic inflammation and minimal acute inflammation. GARRETT:noemy 06/25/2023 MICROSCOPIC DESCRIPTION Slides are reviewed. GROSS DESCRIPTION A - Received in fixative is one container labeled with the patient's name and designated debrided sacral tissue. The specimen consists of two irregular fragments of pink-sandhu soft tissue ranging in size from 1.0 to 4.0 cm. A piece of skin is attached to the largest fragment measuring 2.0 x 1.5 cm. No mass lesions are identified. Cereal Miller sections are submitted in one cassette. B - Received in fixative is one container labeled with the patient's name and designated debrided sacral bone. The specimen consists of multiple irregular fragments of light to dark sandhu bone that in aggregate measure 3.0 x 1.0 x 0.2 cm. The specimen is totally submitted in one cassette after decalcification. / AM:noemy 06/19/2023 TC:2 CPT: 61316 x2, 71037
[2023-06-19] MEDS: Ampicillin/Sulbactam 3 GM in 0.9% Normal Saline (100mL MB+) 100 ML IV ×3 (07:51→18:40)
[2023-06-19] MEDS: Lidocaine 1% /Epi 1:100 (20ml) 20 ML Vial (08:33)
--- NOTE | 2023-06-19 09:25 | PCM.OPRPT ---
Problems Associated Problem List Diagnoses (1) Pressure ulcer of sacral region, stage 4: (2) Personal history of COVID-19: (3) History of acute respiratory failure: (4) Stroke/cerebrovascular accident: Report of Operation Date of Procedure: 06/19/23 Pre-Operative Diagnosis: (1) Pressure ulcer of sacral region, stage 4, (L89.154) (2) Personal history of COVID-19, (Z86.16) (3) History of acute respiratory failure, (Z87.09) (4) Stroke/cerebrovascular accident, (I63.9) Post-Operative Diagnosis: Same. Surgery/Procedure Performed:: Excision sacral pressure sore, Stage IV, with partial ostectomy for osteomyelitis. Description of Surgical Findings:: Patient presents to wound care center today for evaluation and management of sacral pressure ulcer. This wound has been present for 1.5 years. It started when patient was hospitalized, on ventilator in ICU with COVID. It has significantly improved in size since then but has been stagnant in progress for some time now. He had been receiving wound care at the [place] wound center. He reports that it has never been cultured, he has never had imaging, and he has been following up in 2-month intervals with no debridement to between. His wound care has consisted Samaria and of otherwise leaving the wound open to air/covered with a thin layer of gauze. He has been instructed to keep it dry so he has been covering and taping over the area during showers. He is at this point frustrated with the lack of recent progress and decided to establish care here instead at the recommendation of a family friend. He did suffer from significant weight loss and malnutrition following his hospitalization from COVID. He has been making positive progress towards weight gain and overall strength over the last several months. Otherwise, his medical history is significant for asthma, hypertension, narcolepsy. He takes baby aspirin daily but no other blood thinners. He has no prior history of similar wounds. He is very active and able without any limited mobility. He will use an extra padding on his chair/couch if he is having pain in the area of the pressure ulcer, but otherwise does not use padding. He does not have an offloading mattress or pad for his bed. He does weekly cut his grass on a lawnmower, about 5 to 6 acres. He denies fever. His appetite is ok. CT Pelvis was done on 03/18/23. It showed no sclerotic or destructive changes to suggest osteomyelitis. His last wound culture was done on 02/07/23 - It was negative. Patient was informed of the risks and complications of the procedure including alternatives to surgery. These were discussed with the patient personally. Patient voices understanding and wishes to proceed. Potential risks and complications included but not inclusive of bleeding, infection, seroma, hematoma, bruising, swelling, loss of sensation to skin, wound breakdown, need for wound care, poor scarring, poor aesthetic outcome, intra operative cardiac or neurologic events, DVT, PE, and reaction to anesthesia. Size of sacral ulcer - 2.5 x 2.5 x 2 cm. Surgeon: Obie Cagle MD tree chipper: None Type of Anesthesia: General Specimen's removed: 1. Sacral pressure sore soft tissue to Pathology and Microbiology. 2. Sacral pressure sore bone to Pathology and Microbiology. Drains: None. Estimated Blood Loss (mL): 50. Description of Procedure: Patient was taken to OR in supine position and was placed under general anesthesia. He was then placed in the prone position. The sacral area was prepped and draped in the usual fashion. SCD's were placed for DVT prophylaxis. Perioperative antibiotics were given intravenously. Using xylocaine with epinephrine, the sacral pressure sore was infiltrated. After waiting 5 minutes for the anesthetic to take effect, I noted the degree of undermining in all directions, about 1 cm. Using a scalpel I made a circular incision around the pressure sore at the edge of the undermined areas. Dissection was carried down through the subcutaneous tissue and muscle until the bone was seen. There was abnormal bursal scar tissue that tracked down from the skin opening to the underlying bone. The soft tissue was excised and debrided. A rongeur was used for a partial ostectomy for osteomyelitis. I obtained several pieces of bone over the entire base of the ulcer for a abrasives sales representative sample of bone to evaluate for osteomyelitis. A rasp was used to smooth out the bony edges. Half the soft tissue and half the bone was sent to Pathology for analysis to rule out carcinoma and to evaluate for osteomyelitis. Half the soft tissue and half the bone was sent to Microbiology for culture. A positive culture will necessitate antibiotic therapy. Hemostasis was obtained with electrocautery. The wound was irrigated with saline. The size of the sacral ulcer after excision of both soft tissue and bone was 2.5 x 2.5 x 2 cm or 6.25 cm2. The ulcer was then dressed with Mepitel nonadherent dressing followed by Kerlix gauze and Betadine. This was followed with a dry Kerlix gauze and an ABD pad compression dressing. Patient tolerated the procedure well and was sent to PACU in satisfactory condition. Patient will be sent upstairs for continued postop care. The VAC will be placed tomorrow at 150 mmHg continuous suction to be changed three times per week. After discharge he will followup at the Wound Center. After the infection has been treated, and his nutrition is maximized, and he is willing to be on complete bedrest for 6 weeks after closure of the ulcer with a fasciocutaneous flap and possible skin grafting. Anticipated time frame before we proceed with wound closure with the flap is 3-6 months, maybe longer. Grafts/Implants Used: None. Procedure Start Time: 08:33 Procedure Stop Time: 08:57 Complications None. Admit VTE Documentation VTE Present on Admission: No VTE Mechan Device Prophylaxis: SCD's VTE Pharm Prophylaxis ordered?: Yes Addendum Addendum: Surgery Charges CPT - 85971 ICD-10 - L89.154, Z86.16, Z87.09, I63.9
[2023-06-19] MEDS: 0.9% Normal Saline (250mL Bag) 250 ML 15 ML IV (12:37)
[2023-06-19] MEDS: oxyCODONE 5 MG Tablet 10 MG PO ×2 (12:37→18:52)
[2023-06-19] MEDS: Heparin Injection (Vial) 5,000 UNIT/ML VIAL 5000 UNIT SC ×2 (12:41→22:14)
[2023-06-19] MEDS: Omega-3 Acid Ethyl Esters 1 GM Capsule 2 GM PO (12:43)
[2023-06-19] MEDS: Vitamin E 400 UNITS Capsule PO (12:43)
[2023-06-19] MEDS: Docusate Sodium 100 MG Capsule PO ×2 (12:44→22:13)
[2023-06-19] MEDS: Cholecalciferol (VIT D3) 25 MCG TABLET (1,000 UNITS) PO (12:44)
[2023-06-19] MEDS: DiphenhydrAMINE 25 MG Capsule 50 MG PO (22:12)
[2023-06-19] MEDS: Metoprolol Tartrate 50 MG Tablet PO (22:12)
[2023-06-20] VITALS (8 sets, daily range): BP systolic 136–181; BP diastolic 65–93; PULSE 80–100; RESP 16–18; TEMP 36.8–37.1; O2SAT 94–96
[2023-06-20] MEDS: Ampicillin/Sulbactam 3 GM in 0.9% Normal Saline (100mL MB+) 100 ML IV ×4 (01:05→17:05)
[2023-06-20] MEDS: guaiFENesin/D-Methorphan TAB.SR.12H 2 TABLET PO ×2 (01:21→10:25)
[2023-06-20] MEDS: oxyCODONE 5 MG Tablet 10 MG PO (05:32)
[2023-06-20 06:13] LABS: Hematocrit 46.3 % (40-54); Mean Corp Hgb Conc 32.4 g/dL (32-36); Mean Corpuscular Hgb 28.3 pg (27.0-32.0); Mean Corpuscular Volume 87.4 fL (80-94); Mean Platelet Vol. 9.3 fl (6.2-12.0); Platelet Count 233 K/mm3 (150-450); RBC Distribution Width CV 13.2 % (11.6-14.6); RBC Distribution Width SD 42.1 fl (35.1-43.9); White Blood Count 11.6 K/mm3 (4.4-11.0)
[2023-06-20 06:41] LABS: Anion Gap 4 (5-15); BUN 15 mg/dL (7-18); Calcium,Total 8.5 mg/dL (8.5-10.1); Chloride 108 mmol/L (98-107); Creatinine, Serum 0.83 mg/dL (0.70-1.30); EST Glomerular Filtration Rate 97 mL/min (>60); Est Glom Filt Rate - Afr Amer 117 mL/min (>60); Estimated Creatinine Clearance 80.12 ml/min; Glucose 134 mg/dL (74-106); Potassium 3.7 mmol/L (3.5-5.1); Prealbumin 26.6 mg/dL (20.0-40.0); Sodium Level 139 mmol/L (136-145)
--- NOTE | 2023-06-20 09:55 | CASEMGMT ---
Addendum entered by Shoshana Rajput 06/20/23 13:30: TYLER CASTILLO received called back from [place] confirming that pt. wears 2 lpm oxygen continuously. Addendum entered by Shoshana Rajput 06/20/23 13:06: TYLER CASTILLO called [facility] at [phone] to verify his home oxygen but there was no answer. [facility] asking them to call me back. Addendum entered by Shoshana Rajput 06/20/23 12:02: TYLER CASTILLO spoke received notice from [employer] that pt. is not established with them for home oxygen. TYLER CASTILLO called pt's and she informed CM that the oxygen company he uses is [employer]. She also informed me that pt. is alredy established with HHC through [facility] and prior to this admission they were seeing him once a week for his wound. Pt. informed of this information and he states he is fine to resume HHC with [facility] upon discharge. Original Note: TYLER CASTILLO Assessment: Face to Face with pt for initial transition planning/care coordination assessment. TYLER CASTILLO introduced self and role at [facility], pt voices understanding and consents to assessment. pt. is currently having his wound vac placed, and he is agreeable to continuing with assessment at this time. Pt is A&O x4 and answers all questions appropriately at this time. Care providers, pharmacy, and demographics verified/updated. Admitting Dx:Excision sacral pressure sore, stage 4 PCP:Johan Specialists: Jamie (Opthamologist), Penny ([place] Interventionist), W[facility] Center Preferred Pharmacy: [facility] ([place]) Insurance: Medicare Part A & B Prescription Benefit: yes LNOK:Erin Betancourt () Living Will/HCPOA: No and No. Pt. declines to receive information on AD at this time. Pt. informed he can schedule an appointment with [facility] to set up his ADs if desired. Living Arrangements: Pt lives with his in a 1 story home (with basement) with FFSU. 3 steps with railing to enter and a ramp to the garage. Pt. states prior to this admisison he was independent in all ADLs and IADls, and did not voice any concerns with ambulating stairs. Transportation: Pt drives self and denies concerns with transportation. States his also drives DME: Shower chair, raised toilet seat, hospital bed (states it does not have a pressure-relieving mattress), rollator, CPAP (states he had a BIPAP delivered but was told by his PCP not to wear it because there were cancer-causing concerns withe the product, so he does not wear it), Pulse ox, BP cuff, wears 2L oxygen HS (states he does not know who his oxygen is supplied through. Email sent to [employer] to verify oxygen/see if pt. is in their system). He states he feels he would benefit from grab bars in the bathroom and plans to install these himself. His preferred DME Company is [employer]. HHC/SNF: States he was at [facility] in 2020 for SNF. Denies any previous HHC. States his assisted with his wound care prior to this admission. Pt would like to discharge home with HHC for his wound vac. Pt states no further concerns/needs. CM to follow. Advised pt to ask CM if any further question/concerns/needs arise, voices understanding. Pt Goal: Home with HHC Plan: Pt. to discharge home with HHC pending bedrest status from Dr. Cagle/Fanny Rodrigues. Backline sent to both DR. Cagle and Fanny Rodrigues to verify bedrest status.
[2023-06-20] MEDS: Docusate Sodium 100 MG Capsule PO (10:16)
[2023-06-20] MEDS: Losartan Potassium 100 MG Tablet PO (10:16)
[2023-06-20] MEDS: hydroCHLOROthiazide 25 MG Tablet PO (10:17)
[2023-06-20] MEDS: Heparin Injection (Vial) 5,000 UNIT/ML VIAL 5000 UNIT SC (10:18)
[2023-06-20] MEDS: Metoprolol Tartrate 50 MG Tablet PO (10:23)
[2023-06-20] MEDS: Omega-3 Acid Ethyl Esters 1 GM Capsule 2 GM PO (10:24)
[2023-06-20] MEDS: Cholecalciferol (VIT D3) 25 MCG TABLET (1,000 UNITS) PO (10:25)
[2023-06-20] MEDS: Vitamin E 400 UNITS Capsule PO (10:26)
--- NOTE | 2023-06-20 10:27 | WOUNDNOTE ---
wound photo: shaneka
[2023-06-20] MEDS: Flu Vacc QS2023-24(65YR UP)/PF 240 MCG/0.7 ML Syringe IM (10:36)
--- NOTE | 2023-06-20 11:02 | NURSING ---
flu vaccine scanned, pt verified, still made me re verify pt after doing so
--- NOTE | 2023-06-20 12:51 | CASEMGMT ---
Addendum entered by Brittany Thompson 06/20/23 14:17: Discharge Planning Resumption of HH referral sent to [facility] via [facility]. Brittany Thompson, Discharge Planning Asst. Original Note: Discharge Planning Patient is active with [facility] ([phone]) for SN services. TYLER CM updated. Brittany Thompson, Discharge Planning Asst.
--- NOTE | 2023-06-20 14:33 | CASEMGMT ---
Addendum entered by Shoshana Rajput 06/20/23 15:57: [facility] informed that they are agency of choice and D/C instructions sent to them via [employer]. Addendum entered by Shoshana Rajput 06/20/23 15:54: [facility] both are wiling to accept pt. Pt. informed of this and chooses [facility]. Addendum entered by Shoshana Rajput 06/20/23 15:09: TYLER CASTILLO in to pt. room to follow-up with pt. on his top 3 choices. Pt.'s calls and pt. hands me the phone so we can all discuss HHC options. Pt. and his state they are fine with us sending HHC referrals to all facilities on the list. TYLER CASTILLO sent out these referrals via [employer]. Original Note: TYLER CASTILLO received notification from [facility] that they cannot accept pt. as they do not have the staffing for 3x/week. TYLER CASTILLO in to pt. room to inform pt. that at this time, [facility] is unable to accept pt. Patient was provided a list of C providers including quality and resource use data and consistent with the patient?s preferred geographic region, medical needs, and insurance network were provided from the [facility]. TYLER CASTILLO to follow-up with pt. on his top 3 choices for HHC.
--- NOTE | 2023-06-20 14:36 | PCM.DC ---
Discharge Instructions Diet Discharge Diet: No restrictions (Increased protein intake to help with wound healing) Activity Discharge Activity: May Not Shower May resume sexual activity in: 10-14 days Lifting Restrictions: 15 lb weight lifting restriction Additional Activity Instructions:: Ambulate as tolerated Dressing / Incision Call your doctor if your incision/area has: Continuous Slow Oozing, Sudden Increased Bleeding, Increased Pain/ Swelling, Increased Redness and Foul Smelling Discharge Call your doctor if you observe: Fever of 101 or Higher, Inability to urinate, Inability to have a bowel movement, Shortness of breath, Chest pain, Calf discomfort and Uncontrolled pain Cleanse incision/area with: Soap & Water Additional Dressing/Incision Instructions:: Wound VAC dressing changes 3 times per week, suction at 150 mmHg. At the time of the dressing change, wash the wound and jorge l wound with SOAP and WATER, pat dry, then apply the wound VAC. Follow Up Care Please Follow Up With: Fanny Rodrigues ASSISTANT PROFESSOR OF DIETETICS, ASSISTANT PROFESSOR OF DIETETICS-C When: Sunday June 25, 2023 at 9:00 am. Test Results: Test results from this visit will be discussed in further detail at your follow-up appointment, if applicable. Discharge Plan Admission Admit Date/Time: 06/19/23 09:30 Attending Provider: Obie Cagle Primary Care Provider: Wilfrido Prado Discharge Orders/Prescriptions Prescriptions: New oxycodone-acetaminophen [Percocet] 5-325 mg tablet 1 tab PO Q6H PRN (Reason: pain (scale score 7-10)) 7 Days Qty: 28 0RF amoxicillin-pot clavulanate 875-125 mg tablet 1 tab PO Q12H 14 Days Qty: 28 0RF docusate sodium [Colace] 100 mg capsule 100 mg PO DAILY 15 Days Qty: 15 0RF diazepam [Valium] 5 mg tablet 5 mg PO BID PRN (Reason: muscle spasm) 7 Days Qty: 14 0RF Continued diphenhydramine HCl 50 mg Capsule 50 mg PO QHS clonidine 0.2 mg/24 hr Patch Weekly 1 patch TRANSDERMAL QWEEK losartan-hydrochlorothiazide [Hyzaar] 100-25 mg Tablet 1 tab PO DAILY vitamin E 1,000 unit Tablet 1 tab PO .qdaily cholecalciferol (vitamin D3) 25 mcg (1,000 unit) Tablet 25 mcg PO DAILY omega 3-cez-vpu-fish oil [Fish Oil] 1,200 (144-216) mg Capsule 2 cap PO DAILY metoprolol tartrate 50 mg tablet 50 mg PO BID Referrals / Follow Up: Wilfrido Prado MD [Primary Care Provider] - Disposition Disposition (needs filled in before D/C Order can be placed): Home, Self Care
--- NOTE | 2023-06-20 15:11 | PCM.PN.SRG ---
Subjective Subjective Postop #1 Patient states he is doing well, he is having minimal discomfort. Objective Data Objective Data Vital Signs: Vital Signs Temp Pulse Resp BP Pulse Ox O2 Del Method O2 Flow Rate 98.7 F 82 18 156/89 H 94 Room Air 2 06/20/23 12:02 06/20/23 12:02 06/20/23 12:02 06/20/23 12:02 06/20/23 12:02 06/20/23 12:02 06/20/23 14:38 Oxygen Flow Rate (L/min) 2 Oxygen Delivery Method Room Air Weight: 179 lb Body Mass Index (BMI) 27.2 Intake & Output: Intake and Output for Last 24 Hours 06/18/23 06/19/23 06/20/23 23:59 23:59 23:59 Intake Total 1467.0 / 1467.0 336 / 336 Output Total 750 / 750 Balance 1467.0 / 1467.0 -414 / -414 Lab / Micro Data 06/20/23 05:48 06/20/23 05:48 Labs: Laboratory Results - last 24 hr 06/20/23 05:48: WBC 11.6 H, RBC 5.30, Hgb 15.0, Hct 46.3, MCV 87.4, MCH 28.3, MCHC 32.4, RDW Std Deviation 42.1, RDW Coeff of Williams 13.2, Plt Count 233, MPV 9.3, Sodium 139, Potassium 3.7, Chloride 108 H, Carbon Dioxide 27.0, Anion Gap 4 L, BUN 15, Creatinine 0.83, Estim Creat Clear Calc 80.12, Est GFR (MDRD) Af Amer 117, Est GFR (MDRD) Non-Af 97, BUN/Creatinine Ratio 18.0, Glucose 134 H, Calcium 8.5, Prealbumin 26.6 Micro: Microbiology 06/19/23 09:12 Bone - Sacral Bone Gram Stain - Final 06/19/23 09:12 Bone - Sacral Bone Wound Culture - Preliminary No growth-Final to follow 06/19/23 09:00 Tissue - Sacral Pressure Sore Gram Stain - Final 06/19/23 09:00 Tissue - Sacral Pressure Sore Wound Culture - Preliminary No growth-Final to follow Physical Exam Const oriented x3 and no apparent distress HEENT normocephalic Eyes General Eye: normal appearance of both eyes Resp normal respiratory effort Effort and Inspection: able to speak in complete sentences Cardio regular rate Extremity normal to inspection and full ROM Skin Wound Narrative: Operative dressing removed earlier today, no active bleeding. Wound VAC at [address] Neuro oriented x3 Psych mental status grossly normal and thought process normal Assessment & Plan Assessment/Plan (1) Pressure ulcer of sacral region, stage 4: (2) Severe malnutrition: (3) Acute postoperative pain: PLAN: Plan Patient states he has minimal pain. Wound VAC at 150 mmHg. Will be changed 3 times per week. He has home health to assist with the wound VAC dressing changes. At the time of the dressing changes, the wound and jorge l wound should be washed with soap and water, pat dry and then place the foam into the ulcer. Operative culture pending. He will be discharged home with Augmentin until final operative culture and sensitivity come in. Pre albumin 26.6. Continue increased protein intake to help with wound healing. Will prescribe Percocet (28 tabs) for pain. PDMP reviewed. Valium for muscle spasm due to the wound VAC. He has an appointment at the wound healing center with me on Friday at 0900. He will have home health change his wound VAC on Friday and Friday next week.
--- NOTE | 2023-06-20 15:12 | CASEMGMT ---
Referral sent to [facility] [place] [facility] for low air loss mattress. Previously left message with Jay Jay to confirm needed documentation.
--- NOTE | 2023-06-20 15:19 | CASEMGMT ---
Met with patient to complete MOJICA form. MOJICA form explained to patient who voiced understanding and signed form. Original form placed in pt?s chart and copy provided to patient. Brittany Thompson, Discharge Planning Asst.
--- NOTE | 2023-06-20 16:21 | CASEMGMT ---
Social Work SW met with pt to discuss advance directives.? Pt states he has not completed a living will and health care POA. SW educated pt that SW can assist with completing if pt wishes. Advance Directive Rack card provided. ? RAND Springer
== END 2023-06-20 21:00 | disposition home health service (06) ==
LOC: SDC 10:12 → MS3 10:12
PROVIDERS: Anesthesiology; Admitting Provider Surgery; PCP Family Medicine; Referring Provider Surgery; Visit Provider Surgery
PROC: (CPT 15937; principal; 2023-06-19 07:15)
DX: L89.154 Pressure ulcer of sacral region, stage 4 (principal); E43 Unspecified severe protein-calorie malnutrition; I10 Essential (primary) hypertension; Z86.16 Personal history of COVID-19; Z68.27 Body mass index [BMI] 27.0-27.9, adult; Z86.73 Personal history of transient ischemic attack (TIA), and cerebral infarction without residual deficits; J45.909 Unspecified asthma, uncomplicated; Z79.82 Long term (current) use of aspirin; Z79.899 Other long term (current) drug therapy; Z99.81 Dependence on supplemental oxygen; Z86.711 Personal history of pulmonary embolism; Z23 Encounter for immunization; Z86.718 Personal history of other venous thrombosis and embolism; Z86.2 Personal history of diseases of the blood and blood-forming organs and certain disorders involving the immune mechanism
CPT/HCPCS: 15937; 01120; 36415; 51702; 80048; 80076; 84134; 85027; 85610; 85730; 87070; 87075; 87102; 87176; 87205; 87206; 88305; 88311; 93005; 94668; 94762; 96365; 96366; 96372; 97161; 99221; J7050; J7120; 90662; G0378; J0295

== ENCOUNTER 2023-06-30 15:45 | Outpatient (RCR) | payer MEDICARE, BC, SELFPAY ==
[2023-06-25 09:20] VITALS: BP 150/75; TEMP 36.8
--- NOTE | 2023-06-25 10:30 | WC ---
kelly d/c'd per [employer]GER order and policy. pt tolerated well. Fanny lazo calling in flomax for patient.
--- NOTE | 2023-06-25 13:05 | PN.PCM_ITS ---
History of Present Illness Date of Service: 06/25/23 Chief Complaint: Stage IV sacral ulcer History of Wound: Patient presents to wound care center today for evaluation and management of sacral pressure ulcer. This wound has been present for 1.5 years. It started when patient was hospitalized, on ventilator in ICU with COVID. It has significantly improved in size since then but has been stagnant in progress for some time now. He had been receiving wound care at the [facility] wound center. He reports that it has never been cultured, he has never had imaging, and he has been following up in 2-month intervals with no debridement to between. His wound care has consisted Sam[place] and of otherwise leaving the wound open to air/covered with a thin layer of gauze. He has been instructed to keep it dry so he has been covering and taping over the area during showers. He is at this point frustrated with the lack of recent progress and decided to establish care here instead at the recommendation of a family friend. He did suffer from significant weight loss and malnutrition following his hospitalization from [facility]. He has been making positive progress towards weight gain and overall strength over the last several months. Otherwise, his medical history is significant for asthma, hypertension, narcolepsy. He takes baby aspirin daily but no other blood thinners. He has no prior history of similar wounds. He is very active and able without any limited mobility. He will use an extra padding on his chair/couch if he is having pain in the area of the pressure ulcer, but otherwise does not use padding. He does not have an offloading mattress or pad for his bed. He does weekly cut his grass on a lawnmower, about 5 to 6 acres. He denies fever. His appetite is ok. CT Pelvis was done on 03/18/23. It showed no sclerotic or destructive changes to suggest osteomyelitis. His last wound culture was done on 02/07/23 - It was negative. He was evaluated by Dr. Cagle who took him to surgery on 06/19/23 for excision sacral pressure sore, Stage IV, with partial ostectomy for osteomyelitis. He was discharged home with a wound VAC at 150 to be changed 3 times per week. He has home health to assist with his dressing changes. Progress of Wound: Sacral ulcer is stable. No active bleeding. Ulcer is into the muscle with bone palpable. He was sent home with a Mendoza catheter because he was unable to void after surgery. Will remove the catheter today. Objective Data Objective Data Vital Signs: Vital Signs Temp BP O2 Del Method 98.3 F 150/75 H Room Air 06/25/23 09:20 06/25/23 09:20 06/25/23 09:20 Oxygen Delivery Method Room Air Charges/Coding Procedures Integumentary [id number]: [id number] Global Visit Physical Exam Const oriented x3 and no apparent distress HEENT normocephalic Eyes General Eye: normal appearance of both eyes Resp normal respiratory effort Effort and Inspection: able to speak in complete sentences Cardio regular rate Extremity normal to inspection and full ROM Skin Wound Narrative: No active bleeding. Ulcer is beef pink, into the muscle with bone palpable. Neuro oriented x3 Psych mental status grossly normal and thought process normal Debridement Note Debridement Note No debridement was completed: No debridement was completed today Post-Debridement Measurements and Additional Note: Post-Debridement Measurements/Treatment KARIE - Nurse 1 - General Ulcer Assessment Start: 06/25/23 09:20 Freq: Status: Active Protocol: DONNIE Activity Type Activity Date Activity User E-sign Co-sign Detail Recorded Client Recorded Date Recorded By Document 06/25/23 09:20 Desktop 06/25/23 09:35 06/25/23 09:20 - Today's Visit Information Type of service Follow-up Visit (Physician/MONITORING AND EVALUATION ADVISOR ) Arrival Mode Ambulatory Transfer Assistance None Patient Identification Verified (Name & Yes ) Patient Requires Transmission-Based No Precautions Safety Precautions Fall Prevention Vital Signs Temperature (97.8 F-99.1 F) 98.3 F Temperature Source Temporal Pulse Location Monitor Oxygen Delivery Method Room Air Blood Pressure (90/60-120/80) 150/75 H Blood Pressure Mean (mm Hg) 100 Source Monitor Position Sitting Blood Pressure Location Left Arm History Since Last Visit- (Skip if this is Patient's initial visit) Have you changed medications since your No last visit? Any new allergies or adverse reactions No Had a fall/change in ADL's that may No increase risk of falls Signs or symptoms of abuse and/or No neglect since last visit Have you been in the hospital since your Yes last visit? Has dressing in place as prescribed Yes Has compression in place as prescribed N/A Has offloadiing in place as prescribed N/A Pain Scale: 0-10 Numeric Is Patient Pain Free? No sacrum -Description Dull -Intensity 7 -Duration (hours) Chronic -Pain Behavior No Change in Behavior -Pain Aggravating Factors Changing Position, Surgery -Alleviating Factors/Interventions Medication,Will continue to monitor, Emotional Support -Comments lidocainej applied - Nurse 1 - General Ulcer Measurement Start: 06/25/23 09:20 Freq: Status: Active Protocol: Activity Type Activity Date Activity User E-sign Co-sign Detail Recorded Client Recorded Date Recorded By Document 06/25/23 09:20 GM Desktop 06/25/23 09:35 GM 06/25/23 09:20 Wound Center Nurse 1 1-Sacrum -Combined with other wound No -Current Size (cm) - Length 3.2 -Current Size (cm) - Width 0.7 -Current Size (cm) - Depth 2.6 -Total Square Cm 2.24 -Date of Last Picture (Recall this 06/25/23 field) -Photo Taken Yes -Epithelialization None Present -Tunneling No -Undermining/Tunneling No -Circular Undermining No -Exudate Amt Medium -Exudate Type Serosanguineous -Wound Margin Distinct, Outline Attached -Granulation Amt None Present (0 %) -Slough/Fibrin Yes -Necrosis Amt Large (67-100%) -Structure Exposed N/A -Texture (Mickie-wound Skin Appearance) Assessed -Moisture (Mickie-wound Skin Appearance) Assessed -Color (Mickie-wound Skin Appearance) Assessed -Temperature (Mickie-wound Skin No Abnormality Appearance) (Pt Warm) -Tenderness on Palpation (Mickie-wound Yes Skin Appearance) -Ulcer Cleansing Soap and Water -Foul Odor after Cleansing No -Anesthetic Used 4% Lidocaine Solution - Nurse 2 - General Ulcer CM Notes Start: 06/25/23 09:20 Freq: Status: Active Protocol: Activity Type Activity Date Activity User E-sign Co-sign Detail Recorded Client Recorded Date Recorded By Document 06/25/23 09:48 Laptop 06/25/23 09:53 06/25/23 09:48 Wound Center Nurse 2 -Time 09:53 -Correct Patient No -Correct Side, Site, Position No -Correct Procedure No -Procedure Performed No -Wound/Ulcer Outcome Not Healed -Bleeding Controlled with Pressure -Offloading No -Debridement - Subq, 1st 20sq cm No Pain Scale: 0-10 Numeric Is Patient Pain Free? Yes - Nurse 3 - General Ulcer D/C NN Start: 06/25/23 09:20 Freq: Status: Active Protocol: Activity Type Activity Date Activity User E-sign Co-sign Detail Recorded Client Recorded Date Recorded By Document 06/25/23 10:01 KW Desktop 06/25/23 10:01 KW 06/25/23 10:01 Wound Care Center Nurse 3 1-Sacrum -Ulcer Cleansing Rinsed/ Irrigated with Saline -Setting (mmHg) 150 -Negative Pressure is Continuous Pain Scale: 0-10 Numeric Is Patient Pain Free? Yes WC - Visit Discharge Discharge Condition Stable Ambulatory Status Ambulatory Transportation Private Auto Medication Reconcilliation completed & No provided to patient/care provider Clinical Summary of Care Provided Yes Assessment/Plan Assessment/Plan (1) Pressure ulcer of sacral region, stage 4: CODE(S): L89.154 - Pressure ulcer of sacral region, stage 4 (2) Personal history of COVID-19: CODE(S): Z86.16 - Personal history of COVID-19 (3) History of acute respiratory failure: CODE(S): Z87.09 - Personal history of other diseases of the respiratory system (4) Stroke/cerebrovascular accident: CODE(S): I63.9 - Cerebral infarction, unspecified PLAN: Plan Patient evaluated at the wound center today. Wound care - Wound VAC at 150 mmHg 3 times per week with black foam coiled into the base of the ulcer. At the time of the dressing changes, wash the ulcer and mickie wound with soap and water, pat dry. Continue to avoid sitting/lying on this area for any length of time. Will remove his mendoza catheter today. Will start him on Flomax for several days to help with voiding. Instructed patient that if he can not void he is to call home health or go to the ED to have a catheter put back in. If the catheter has to be replaced, then he will be referred to a urologist. Follow up 2 weeks.
[2023-06-30 15:41] VITALS: BP 136/71; PULSE 69; RESP 16; TEMP 36.9
--- NOTE | 2023-06-30 17:00 | PCM.WC.PN ---
History of Present Illness Date of Service: 06/30/23 Chief Complaint: Stage IV sacral ulcer History of Wound: Patient presents to wound care center today for evaluation and management of sacral pressure ulcer. This wound has been present for 1.5 years. It started when patient was hospitalized, on ventilator in ICU with COVID. It has significantly improved in size since then but has been stagnant in progress for some time now. He had been receiving wound care at the [facility] wound center. He reports that it has never been cultured, he has never had imaging, and he has been following up in 2-month intervals with no debridement to between. His wound care has consisted Samaria and of otherwise leaving the wound open to air/covered with a thin layer of gauze. He has been instructed to keep it dry so he has been covering and taping over the area during showers. He is at this point frustrated with the lack of recent progress and decided to establish care here instead at the recommendation of a family friend. Surgery - 06/19/23 - Excision sacral pressure sore, Stage IV, with partial ostectomy for osteomyelitis. Wound care - VAC. Operative cultures from 06/19/23 - Negative. He was treated perioperatively with Augmentin. Last wound culture on 05/01/23 showed Staphylococcus aureus. He was treated with Bactrim. Pathology from surgery 06/19/23 - Bone with reactive changes, mild chronic inflammation and minimal acute inflammation. Prealbumin from 06/20/23 was 26.6. Encourage nutritional supplementation with protein to help the healing process. CT Pelvis was done on 03/18/23. It showed no sclerotic or destructive changes to suggest osteomyelitis. Today he denies fever. His appetite is ok. Progress of Wound: Recent surgery 06/19/23 Objective Data Objective Data Vital Signs: Vital Signs Temp Pulse Resp BP O2 Del Method 98.4 F 69 16 136/71 H Room Air 06/30/23 15:41 06/30/23 15:41 06/30/23 15:41 06/30/23 15:41 06/30/23 15:41 Oxygen Delivery Method Room Air Prealbumin from 06/20/23 was 26.6. Encourage nutritional supplementation with protein to help the healing process. Lab / Micro Data Attestation: I reviewed the patient's lab results. Charges/Coding Procedures Integumentary 111xxx-113xx: 27156 Global Visit (ICD-10 - L89.154, Z86.16, Z87.09, I63.9) Debridement Note Debridement Note Wound debrided: #1 Sacral area. Laterality: Not Applicable Wound Grade/Stage: Stage IV Type of Debridement: Excisional debridement Anesthesia Used: 5% Lidocaine Gel Depth: Down to and including healthy tissue, in the subcutaneous layer, to muscle and to bone (bone is exposed but not debrided.) Percentage of wound debrided: 100 Instrument Used: 7mm curette Tissue Removed: subcutaneous tissue and muscle. Severity: Fat Layer Exposed (muscle is exposed. Bone is exposed but not debrided.) Amount of bleeding with debridement: Mild Bleeding Controlled with: Pressure and Compression and gauze Patient tolerated procedure: Patient tolerated procedure well Post-Debridement Measurements and Additional Note: Post-Debridement Measurements/Treatment - Nurse 1 - General Ulcer Assessment Start: 06/25/23 09:20 Freq: Status: Active Protocol: DONNIE Activity Type Activity Date Activity User E-sign Co-sign Detail Recorded Client Recorded Date Recorded By Document 06/25/23 09:20 Desktop 06/25/23 09:35 Document 06/30/23 15:41 [facility] Desktop 06/30/23 15:50 BM 06/25/23 06/30/23 09:20 15:41 - Today's Visit Information Type of service Follow-up Visit Follow-up Visit (Physician/GAS BOOSTER ENGINEER (Physician/GAS BOOSTER ENGINEER ) ) Arrival Mode Ambulatory Ambulatory Transfer Assistance None None Accompanied by Patient Identification Verified (Name & Yes Yes ) Patient Requires Transmission-Based No No Precautions Safety Precautions Fall Prevention Vital Signs Temperature (97.8 F-99.1 F) 98.3 F 98.4 F Temperature Source Temporal Temporal Pulse Rate (60-100) 69 Pulse Location Monitor Monitor Respiratory Rate (12-18) 16 Respiratory rate source Observation Oxygen Delivery Method Room Air Room Air Blood Pressure (90/60-120/80) 150/75 H 136/71 H Blood Pressure Mean (mm Hg) 100 92 Source Monitor Monitor Position Sitting Sitting Blood Pressure Location Left Arm Left Arm History Since Last Visit- (Skip if this is Patient's initial visit) Have you changed medications since your No No last visit? Any new allergies or adverse reactions No No Had a fall/change in ADL's that may No No increase risk of falls Signs or symptoms of abuse and/or No No neglect since last visit Have you been in the hospital since your Yes No last visit? Has dressing in place as prescribed Yes Yes Has compression in place as prescribed N/A N/A Has offloadiing in place as prescribed N/A N/A Experienced any changes in pain level or No management Left Footwear Regular Shoe Right Footwear Regular Shoe Pain Scale: 0-10 Numeric Is Patient Pain Free? No Yes sacrum -Description Dull -Intensity 7 -Duration (hours) Chronic -Pain Behavior No Change in Behavior -Pain Aggravating Factors Changing Position, Surgery -Alleviating Factors/Interventions Medication,Will continue to monitor, Emotional Support -Comments lidocainej applied WC - Nurse 1 - General Ulcer Measurement Start: 06/25/23 09:20 Freq: Status: Active Protocol: Activity Type Activity Date Activity User E-sign Co-sign Detail Recorded Client Recorded Date Recorded By Document 06/25/23 09:20 GM Desktop 06/25/23 09:35 GM Document 06/30/23 15:41 BM Desktop 06/30/23 15:50 BMF 06/25/23 06/30/23 09:20 15:41 Wound Center Nurse 1 1-Sacrum -Combined with other wound No No -Current Size (cm) - Length 3.2 5.1 -Current Size (cm) - Width 0.7 2.4 -Current Size (cm) - Depth 2.6 4 -Total Square Cm 2.24 12.24 -Date of Last Picture (Recall this 06/25/23 field) -Photo Taken Yes No -Epithelialization None Present -Tunneling No No -Undermining/Tunneling No No -Circular Undermining No No -Exudate Amt Medium Medium -Exudate Type Serosanguineous Serosanguineous -Wound Margin Distinct, Distinct, Outline Outline Attached Attached -Granulation Amt None Present (0 Large (67-100%) %) -Granulation Quality [place] -Slough/Fibrin Yes Yes -Necrosis Amt Large (67-100%) Small (1-33%) -Necrotic Tissue Type Adherent Slough -Structure Exposed N/A -Texture (Mickie-wound Skin Appearance) Assessed Assessed, Scarring -Moisture (Mickie-wound Skin Appearance) Assessed Assessed, Maceration -Color (Mickie-wound Skin Appearance) Assessed Assessed -Temperature (Mickie-wound Skin No Abnormality No Abnormality Appearance) (Pt Warm) (Pt Warm) -Tenderness on Palpation (Mickie-wound Yes No Skin Appearance) -Ulcer Cleansing Soap and Water Soap and Water -Foul Odor after Cleansing No No -Anesthetic Used 4% Lidocaine 5% Lidocaine Solution Gel KARIE - Nurse 2 - General Ulcer CM Notes Start: 06/25/23 09:20 Freq: Status: Active Protocol: Activity Type Activity Date Activity User E-sign Co-sign Detail Recorded Client Recorded Date Recorded By Document 06/25/23 09:48 Laptop 06/25/23 09:53 Document 06/30/23 16:37 Laptop 06/30/23 16:38 06/25/23 06/30/23 09:48 16:37 Wound Center Nurse 2 1-Sacrum -Time 09:53 16:37 -Correct Patient No Yes -Correct Side, Site, Position No Yes -Correct Procedure No Yes -Procedure Performed No Yes -Type of Procedure Debridement -Clinical Debridement Muscle / Fascia -Tissue Removed Muscle,Fascia -Post Debridement (cm) - Length 3.0 -Post Debridement (cm) - Width 1.4 -Post Debridement (cm) - Depth 3.2 -Total Square (Post) (cm) 4.20 -Area of Debridement (cm) - Length 3.0 -Area of Debridement (cm) - Width 1.4 -Total Square (Area) (cm) 4.20 -Tunneling No -Undermining/Tunneling No -Circular Undermining No -Wound/Ulcer Outcome Not Healed Not Healed -Ulcer Cleansing Rinsed/ Irrigated with Saline -Foul Odor after Cleansing No -Bioengineered Tissue No -Bleeding Controlled with Pressure Pressure -Treatment Response Procedure Tolerated Well -Offloading No No -Debridement - Subq, 1st 20sq cm No -Debridement - Muscle / Fascia, 1st Yes 20sq cm Pain Scale: 0-10 Numeric Is Patient Pain Free? Yes Yes KARIE - Nurse 3 - General Ulcer D/C NN Start: 06/25/23 09:20 Freq: Status: Active Protocol: Activity Type Activity Date Activity User E-sign Co-sign Detail Recorded Client Recorded Date Recorded By Document 06/25/23 10:01 KW Desktop 06/25/23 10:01 KW Edit Result 06/25/23 10:01 KW (1) [id number] 06/26/23 17:58 PL Document 06/30/23 16:43 BMF Desktop 06/30/23 16:43 BMF (1) 1-Sacrum - NPWT Application Charge => NPWT </= 50 sq cm => ($) 06/25/23 06/30/23 10:01 16:43 Wound Care Center Nurse 3 1-Sacrum -Ulcer Cleansing Rinsed/ Rinsed/ Irrigated with Irrigated with Saline Saline -Foul Odor after Cleansing No -Negative Pressure Wound Therapy Continue -Setting (mmHg) 150 150 -Negative Pressure is Continuous Continuous -Other Dressing VAC APPLIED PER DL REGISTRY NP -NPWT Application Charge NPWT </= 50 sq NPWT & cm ($) Debridement (nc ) Treatment Response Procedure Tolerated Well Pain Scale: 0-10 Numeric Is Patient Pain Free? Yes Yes WC - Visit Discharge Discharge Condition Stable Stable Ambulatory Status Ambulatory Ambulatory Transportation Private Auto Private Auto Accompanied by Medication Reconcilliation completed & No provided to patient/care provider Clinical Summary of Care Provided Yes Facility Type Home Health Assessment/Plan Assessment/Plan (1) Pressure ulcer of sacral region, stage 4: CODE(S): L89.154 - Pressure ulcer of sacral region, stage 4 (2) Personal history of COVID-19: CODE(S): Z86.16 - Personal history of COVID-19 (3) History of acute respiratory failure: CODE(S): Z87.09 - Personal history of other diseases of the respiratory system (4) Stroke/cerebrovascular accident: CODE(S): I63.9 - Cerebral infarction, unspecified PLAN: Plan Wound care - Continue wound VAC at 150 mmHg 3 times per week with black foam coiled into the base of the ulcer. Continue to avoid sitting/lying on this area for any length of time. Prealbumin from 06/20/23 was 26.6. Encourage nutritional supplementation with protein to help the healing pocket. Operative culture from 06/19/23 was negative. Had preop culture from 05/01/23 showed Staphylococcus aureus. He was treated with Bactrim. Follow up 2 weeks. With regard to eventual closure of this sacral pressure sore, I don't want to use a muscle flap. Patient can ambulate and a muscle flap would be problematic with some gait disturbances. He would be setup with Physical Therapy to help improve the gait disturbance. Instead I could use a fasciocutaneous flap to improve the blood supply and there is no detachment of muscle with this type of flap. Because of its small size, a local transposition flap is also an option. Postoperatively he would need to be on complete bedrest for 4-6 weeks.
== END 2023-07-01 23:59 | disposition home or self-care (01) ==
LOC: WC 15:45
PROVIDERS: PCP Family Medicine; Referring Provider Surgery; Visit Provider Nurse Practitioner Family
DX: L89.154 Pressure ulcer of sacral region, stage 4 (principal); I10 Essential (primary) hypertension; Z86.16 Personal history of COVID-19
CPT/HCPCS: 11043; 97605; 99214; G0463

== ENCOUNTER 2023-07-28 10:30 | Outpatient (RCR) | payer MEDICARE, BC, SELFPAY ==
[2023-07-02 00:55] VITALS: BP 136/71; PULSE 69; RESP 16; TEMP 36.9
[2023-07-14 14:37] VITALS: BP 152/68; PULSE 65; TEMP 36.7
--- NOTE | 2023-07-14 15:01 | PCM.WC.PN ---
History of Present Illness Date of Service: 07/14/23 Chief Complaint: Stage IV sacral ulcer History of Wound: Patient presents to wound care center today for evaluation and management of sacral pressure ulcer. This wound has been present for 1.5 years. It started when patient was hospitalized, on ventilator in ICU with COVID. It has significantly improved in size since then but has been stagnant in progress for some time now. He had been receiving wound care at the [facility] center. He reports that it has never been cultured, he has never had imaging, and he has been following up in 2-month intervals with no debridement to between. His wound care has consisted Samaria and of otherwise leaving the wound open to air/covered with a thin layer of gauze. He has been instructed to keep it dry so he has been covering and taping over the area during showers. He is at this point frustrated with the lack of recent progress and decided to establish care here instead at the recommendation of a family friend. He did suffer from significant weight loss and malnutrition following his hospitalization from [facility]. He has been making positive progress towards weight gain and overall strength over the last several months. Otherwise, his medical history is significant for asthma, hypertension, narcolepsy. He takes baby aspirin daily but no other blood thinners. He has no prior history of similar wounds. He is very active and able without any limited mobility. He will use an extra padding on his chair/couch if he is having pain in the area of the pressure ulcer, but otherwise does not use padding. He does not have an offloading mattress or pad for his bed. He does weekly cut his grass on a lawnmower, about 5 to 6 acres. He denies fever. His appetite is ok. CT Pelvis was done on 03/18/23. It showed no sclerotic or destructive changes to suggest osteomyelitis. His last wound culture was done on 02/07/23 - It was negative. He was evaluated by Dr. Cagle who took him to surgery on 06/19/23 for excision sacral pressure sore, Stage IV, with partial ostectomy for osteomyelitis. He was discharged home with a wound VAC at 150 to be changed 3 times per week. He has home health to assist with his dressing changes. Progress of Wound: Recent surgery 06/19/23. Sacral ulcer is smaller in size since surgery. He is tolerating the wound VAC. Objective Data Objective Data Vital Signs: Vital Signs Temp Pulse Resp BP O2 Del Method 98.1 F 65 16 152/68 H Room Air 07/14/23 14:37 07/14/23 14:37 07/02/23 00:55 07/14/23 14:37 07/14/23 14:37 Oxygen Delivery Method Room Air Charges/Coding Procedures Integumentary 111xxx-113xx: 84357 Global Visit Debridement Note Debridement Note Wound debrided: #1 Sacral area. Laterality: Not Applicable Wound Grade/Stage: Stage IV Type of Debridement: Excisional debridement Anesthesia Used: 5% Lidocaine Gel Depth: Down to and including healthy tissue, in the subcutaneous layer, to muscle and to bone (bone is exposed but not debrided.) Percentage of wound debrided: 100 Instrument Used: 7mm curette Tissue Removed: subcutaneous tissue and muscle. Severity: Fat Layer Exposed (muscle is exposed. Bone is exposed but not debrided.) Amount of bleeding with debridement: Mild Bleeding Controlled with: Pressure and Compression and gauze Patient tolerated procedure: Patient tolerated procedure well Post-Debridement Measurements and Additional Note: Post-Debridement Measurements/Treatment - Nurse 1 - General Ulcer Assessment Start: 07/14/23 14:37 Freq: Status: Active Protocol: DONNIE Activity Type Activity Date Activity User E-sign Co-sign Detail Recorded Client Recorded Date Recorded By Document 07/14/23 14:37 Desktop 07/14/23 14:39 07/14/23 14:37 - Today's Visit Information Type of service Follow-up Visit (Physician/AIR CONDITIONING UNIT ASSEMBLER ) Arrival Mode Ambulatory Transfer Assistance None Patient Identification Verified (Name & Yes ) Patient Requires Transmission-Based No Precautions Safety Precautions NA Vital Signs Temperature (97.8 F-99.1 F) 98.1 F Temperature Source Temporal Pulse Rate (60-100) 65 Pulse Location Monitor Oxygen Delivery Method Room Air Blood Pressure (90/60-120/80) 152/68 H Blood Pressure Mean (mm Hg) 96 Position Sitting Blood Pressure Location Right Arm History Since Last Visit- (Skip if this is Patient's initial visit) Have you changed medications since your No last visit? Any new allergies or adverse reactions No Had a fall/change in ADL's that may No increase risk of falls Signs or symptoms of abuse and/or No neglect since last visit Have you been in the hospital since your No last visit? Has dressing in place as prescribed Yes Has compression in place as prescribed No Has offloadiing in place as prescribed No Experienced any changes in pain level or No management Pain Scale: 0-10 Numeric Is Patient Pain Free? Yes - Nurse 1 - General Ulcer Measurement Start: 07/14/23 14:37 Freq: Status: Active Protocol: Activity Type Activity Date Activity User E-sign Co-sign Detail Recorded Client Recorded Date Recorded By Document 07/14/23 14:37 Desktop 07/14/23 14:39 07/14/23 14:37 Wound Center Nurse 1 1-Sacrum -Current Size (cm) - Length 2.5 -Current Size (cm) - Width 1.5 -Current Size (cm) - Depth 2.2 -Total Square Cm 3.75 -Photo Taken No -Epithelialization Small 1-33% -Tunneling No -Undermining/Tunneling No -Circular Undermining No -Exudate Amt Medium -Exudate Type Serosanguineous -Wound Margin Distinct, Outline Attached -Granulation Amt Medium (34-66%) -Granulation Quality Red -Necrosis Amt Medium (34-66%) -Necrotic Tissue Type Adherent Slough -Texture (Mickie-wound Skin Appearance) Assessed, Scarring -Moisture (Mickie-wound Skin Appearance) Assessed -Color (Mickie-wound Skin Appearance) Assessed -Temperature (Mickie-wound Skin No Abnormality Appearance) (Pt Warm) -Tenderness on Palpation (Mickie-wound No Skin Appearance) -Ulcer Cleansing Soap and Water -Foul Odor after Cleansing No -Anesthetic Used 5% Lidocaine Gel - Nurse 2 - General Ulcer CM Notes Start: 07/14/23 14:37 Freq: Status: Active Protocol: Activity Type Activity Date Activity User E-sign Co-sign Detail Recorded Client Recorded Date Recorded By Document 07/14/23 14:52 Laptop 07/14/23 14:55 07/14/23 14:52 Wound Center Nurse 2 -Time 14:52 -Correct Patient Yes -Correct Side, Site, Position Yes -Correct Procedure Yes -Procedure Performed Yes -Type of Procedure Debridement -Clinical Debridement Muscle / Fascia -Tissue Removed Muscle,Fascia -Post Debridement (cm) - Length 2.5 -Post Debridement (cm) - Width 2.0 -Post Debridement (cm) - Depth 3.5 -Total Square (Post) (cm) 5.00 -Area of Debridement (cm) - Length 2.5 -Area of Debridement (cm) - Width 2.0 -Total Square (Area) (cm) 5.00 -Tunneling Yes -Tunneling Position (O'clock) 3 -Tunneling Distance (cm) 3.8 -Undermining/Tunneling No -Circular Undermining No -Wound/Ulcer Outcome Not Healed -Ulcer Cleansing Rinsed/ Irrigated with Saline -Foul Odor after Cleansing No -Bioengineered Tissue No -Bleeding Controlled with Pressure -Treatment Response Procedure Tolerated Well -Offloading No -Debridement - Muscle / Fascia, 1st Yes 20sq cm Pain Scale: 0-10 Numeric Is Patient Pain Free? Yes - Nurse 3 - General Ulcer D/C NN Start: 07/14/23 14:37 Freq: Status: Active Protocol: Activity Type Activity Date Activity User E-sign Co-sign Detail Recorded Client Recorded Date Recorded By Document 07/14/23 14:58 GM Desktop 07/14/23 14:59 GM 07/14/23 14:58 Wound Care Center Nurse 3 1-Sacrum -Ulcer Cleansing Not Cleansed -Foul Odor after Cleansing No -Negative Pressure Wound Therapy Continue -Negative Pressure is Continuous -Regranex (If Applicable) Continue -NPWT Application Charge NPWT & Debridement (nc ) Pain Scale: 0-10 Numeric Is Patient Pain Free? Yes - Visit Discharge Discharge Condition Stable Ambulatory Status Ambulatory Transportation Private Auto Medication Reconcilliation completed & Yes provided to patient/care provider Clinical Summary of Care Provided Yes Assessment/Plan Assessment/Plan (1) Pressure ulcer of sacral region, stage 4: CODE(S): L89.154 - Pressure ulcer of sacral region, stage 4 (2) Personal history of COVID-19: CODE(S): Z86.16 - Personal history of COVID-19 (3) History of acute respiratory failure: CODE(S): Z87.09 - Personal history of other diseases of the respiratory system (4) Stroke/cerebrovascular accident: CODE(S): I63.9 - Cerebral infarction, unspecified PLAN: Plan Wound care - Continue wound VAC at 150 mmHg 3 times per week with black foam coiled into the base of the ulcer. Continue to avoid sitting/lying on this area for any length of time. Prealbumin from 06/20/23 was 26.6. Encourage nutritional supplementation with protein to help the healing pocket. Operative culture from 06/19/23 was negative. Had preop culture from 05/01/23 showed Staphylococcus aureus. He was treated with Bactrim. Follow up 2 weeks. With regard to eventual closure of this sacral pressure sore, I don't want to use a muscle flap. Patient can ambulate and a muscle flap would be problematic with some gait disturbances. He would be setup with Physical Therapy to help improve the gait disturbance. Instead I could use a fasciocutaneous flap to improve the blood supply and there is no detachment of muscle with this type of flap. Because of its small size, a local transposition flap is also an option. Postoperatively he would need to be on complete bedrest for 4-6 weeks.
[2023-07-28 10:27] VITALS: BP 140/67; PULSE 82; RESP 18; TEMP 36.4
--- NOTE | 2023-07-28 11:33 | PCM.WC.PN ---
History of Present Illness Date of Service: 07/28/23 Chief Complaint: Stage IV sacral ulcer History of Wound: Patient presents to wound care center today for evaluation and management of sacral pressure ulcer. This wound has been present for 1.5 years. It started when patient was hospitalized, on ventilator in ICU with COVID. It has significantly improved in size since then but has been stagnant in progress for some time now. He had been receiving wound care at the [facility] center. He reports that it has never been cultured, he has never had imaging, and he has been following up in 2-month intervals with no debridement to between. His wound care has consisted Samaria and of otherwise leaving the wound open to air/covered with a thin layer of gauze. He has been instructed to keep it dry so he has been covering and taping over the area during showers. He is at this point frustrated with the lack of recent progress and decided to establish care here instead at the recommendation of a family friend. He did suffer from significant weight loss and malnutrition following his hospitalization from [facility]. He has been making positive progress towards weight gain and overall strength over the last several months. Otherwise, his medical history is significant for asthma, hypertension, narcolepsy. He takes baby aspirin daily but no other blood thinners. He has no prior history of similar wounds. He is very active and able without any limited mobility. He will use an extra padding on his chair/couch if he is having pain in the area of the pressure ulcer, but otherwise does not use padding. He does not have an offloading mattress or pad for his bed. He does weekly cut his grass on a lawnmower, about 5 to 6 acres. He denies fever. His appetite is ok. CT Pelvis was done on 03/18/23. It showed no sclerotic or destructive changes to suggest osteomyelitis. His last wound culture was done on 02/07/23 - It was negative. Surgery on 06/19/23 for excision sacral pressure sore, Stage IV, with partial ostectomy for osteomyelitis. He was discharged home with a wound VAC at 150 to be changed 3 times per week. He has home health to assist with his dressing changes. Progress of Wound: He states he has been having issues keeping a seal with the Wound VAC. His wound bed has areas of hypergranulation tissue. Still able to palpate the bone. Edge of ulcer is macerated. Objective Data Objective Data Vital Signs: Vital Signs Temp Pulse Resp BP O2 Del Method 97.6 F L 82 18 140/67 H Room Air 07/28/23 10:27 07/28/23 10:27 07/28/23 10:27 07/28/23 10:27 07/14/23 14:37 Oxygen Delivery Method Room Air Charges/Coding Procedures Integumentary 111xxx-113xx: [id number] Global Visit Debridement Note Debridement Note Wound debrided: #1 Sacral area. Laterality: Not Applicable Wound Grade/Stage: Stage IV Type of Debridement: Excisional debridement Anesthesia Used: 5% Lidocaine Gel Depth: Down to and including healthy tissue, in the subcutaneous layer, to muscle and to bone (bone is exposed but not debrided.) Percentage of wound debrided: 100 Instrument Used: 7mm curette Tissue Removed: subcutaneous tissue and muscle. Severity: Fat Layer Exposed (muscle is exposed. Bone is exposed but not debrided.) Amount of bleeding with debridement: Mild Bleeding Controlled with: Pressure and Compression and gauze Patient tolerated procedure: Patient tolerated procedure well Post-Debridement Measurements and Additional Note: Post-Debridement Measurements/Treatment - Nurse 1 - General Ulcer Assessment Start: 07/14/23 14:37 Freq: Status: Active Protocol: DONNIE Activity Type Activity Date Activity User E-sign Co-sign Detail Recorded Client Recorded Date Recorded By Document 07/14/23 14:37 Desktop 07/14/23 14:39 Document 07/28/23 10:27 PL Tablet 07/28/23 10:37 PL 07/14/23 07/28/23 14:37 10:27 - Today's Visit Information Type of service Follow-up Visit Follow-up Visit (Physician/PATTERN CHECKER (Physician/PATTERN CHECKER ) ) Arrival Mode Ambulatory Ambulatory Transfer Assistance None None Patient Identification Verified (Name & Yes Yes ) Patient Requires Transmission-Based No No Precautions Safety Precautions NA Vital Signs Temperature (97.8 F-99.1 F) 98.1 F 97.6 F L Temperature Source Temporal Temporal Pulse Rate (60-100) 65 82 Pulse Location Monitor Respiratory Rate (12-18) 18 Oxygen Delivery Method Room Air Blood Pressure (90/60-120/80) 152/68 H 140/67 H Blood Pressure Mean (mm Hg) 96 91 Position Sitting Blood Pressure Location Right Arm History Since Last Visit- (Skip if this is Patient's initial visit) Have you changed medications since your No No last visit? Any new allergies or adverse reactions No No Had a fall/change in ADL's that may No No increase risk of falls Signs or symptoms of abuse and/or No neglect since last visit Have you been in the hospital since your No No last visit? Has dressing in place as prescribed Yes Yes Has compression in place as prescribed No N/A Has offloadiing in place as prescribed No N/A Experienced any changes in pain level or No No management Pain Scale: 0-10 Numeric Is Patient Pain Free? Yes Yes KARIE - Nurse 1 - General Ulcer Measurement Start: 07/14/23 14:37 Freq: Status: Active Protocol: Activity Type Activity Date Activity User E-sign Co-sign Detail Recorded Client Recorded Date Recorded By Document 07/14/23 14:37 Desktop 07/14/23 14:39 07/14/23 14:37 Wound Center Nurse 1 1-Sacrum -Current Size (cm) - Length 2.5 -Current Size (cm) - Width 1.5 -Current Size (cm) - Depth 2.2 -Total Square Cm 3.75 -Photo Taken No -Epithelialization Small 1-33% -Tunneling No -Undermining/Tunneling No -Circular Undermining No -Exudate Amt Medium -Exudate Type Serosanguineous -Wound Margin Distinct, Outline Attached -Granulation Amt Medium (34-66%) -Granulation Quality Red -Necrosis Amt Medium (34-66%) -Necrotic Tissue Type Adherent Slough -Texture (Mickie-wound Skin Appearance) Assessed, Scarring -Moisture (Mickie-wound Skin Appearance) Assessed -Color (Mickie-wound Skin Appearance) Assessed -Temperature (Mickie-wound Skin No Abnormality Appearance) (Pt Warm) -Tenderness on Palpation (Mickie-wound No Skin Appearance) -Ulcer Cleansing Soap and Water -Foul Odor after Cleansing No -Anesthetic Used 5% Lidocaine Gel KARIE - Nurse 2 - General Ulcer CM Notes Start: 07/14/23 14:37 Freq: Status: Active Protocol: Activity Type Activity Date Activity User E-sign Co-sign Detail Recorded Client Recorded Date Recorded By Document 07/14/23 14:52 Laptop 07/14/23 14:55 Document 07/28/23 10:44 Laptop 07/28/23 10:48 07/14/23 07/28/23 14:52 10:44 Wound Center Nurse 2 1-Sacrum -Time 14:52 10:44 -Correct Patient Yes Yes -Correct Side, Site, Position Yes Yes -Correct Procedure Yes Yes -Procedure Performed Yes Yes -Type of Procedure Debridement Debridement -Clinical Debridement Muscle / Fascia Muscle / Fascia -Tissue Removed Muscle,Fascia Muscle,Fascia -Post Debridement (cm) - Length 2.5 1.9 -Post Debridement (cm) - Width 2.0 1.5 -Post Debridement (cm) - Depth 3.5 2.8 -Total Square (Post) (cm) 5.00 2.85 -Area of Debridement (cm) - Length 2.5 1.9 -Area of Debridement (cm) - Width 2.0 1.5 -Total Square (Area) (cm) 5.00 2.85 -Tunneling Yes No -Tunneling Position (O'clock) 3 -Tunneling Distance (cm) 3.8 -Undermining/Tunneling No Yes -Undermining/Tunneling Starts (O'clock 11 ) -Undermining/Tunneling Ends (O'clock) 3 -Maximum Distance (cm) 2.4 -Circular Undermining No No -Wound/Ulcer Outcome Not Healed Not Healed -Ulcer Cleansing Rinsed/ Rinsed/ Irrigated with Irrigated with Saline Saline -Foul Odor after Cleansing No No -Bioengineered Tissue No No -Bleeding Controlled with Pressure Pressure -Treatment Response Procedure Procedure Tolerated Well Tolerated Well -Offloading No No -Debridement - Muscle / Fascia, 1st Yes Yes 20sq cm Pain Scale: 0-10 Numeric Is Patient Pain Free? Yes Yes - Nurse 3 - General Ulcer D/C NN Start: 07/14/23 14:37 Freq: Status: Active Protocol: Activity Type Activity Date Activity User E-sign Co-sign Detail Recorded Client Recorded Date Recorded By Document 07/14/23 14:58 Desktop 07/14/23 14:59 07/14/23 14:58 Wound Care Center Nurse 3 1-Sacrum -Ulcer Cleansing Not Cleansed -Foul Odor after Cleansing No -Negative Pressure Wound Therapy Continue -Negative Pressure is Continuous -Regranex (If Applicable) Continue -NPWT Application Charge NPWT & Debridement (nc ) Pain Scale: 0-10 Numeric Is Patient Pain Free? Yes WC - Visit Discharge Discharge Condition Stable Ambulatory Status Ambulatory Transportation Private Auto Medication Reconcilliation completed & Yes provided to patient/care provider Clinical Summary of Care Provided Yes Assessment/Plan Assessment/Plan (1) Pressure ulcer of sacral region, stage 4: CODE(S): L89.154 - Pressure ulcer of sacral region, stage 4 (2) Personal history of COVID-19: CODE(S): Z86.16 - Personal history of COVID-19 (3) History of acute respiratory failure: CODE(S): Z87.09 - Personal history of other diseases of the respiratory system (4) Stroke/cerebrovascular accident: CODE(S): I63.9 - Cerebral infarction, unspecified PLAN: Plan Wound care - Take a wound VAC holiday this week. Pack wound with Dakins 0.25 moistened gauze covered by ABD daily. Continue to avoid sitting/lying on this area for any length of time. Prealbumin from 06/20/23 was 26.6. Encourage nutritional supplementation with protein to help the healing pocket. Operative culture from 06/19/23 was negative. Had preop culture from 05/01/23 showed Staphylococcus aureus. He was treated with Bactrim. Follow up [address] Cagle's previous note: With regard to eventual closure of this sacral pressure sore, I don't want to use a muscle flap. Patient can ambulate and a muscle flap would be problematic with some gait disturbances. He would be setup with Physical Therapy to help improve the gait disturbance. Instead I could use a fasciocutaneous flap to improve the blood supply and there is no detachment of muscle with this type of flap. Because of its small size, a local transposition flap is also an option. Postoperatively he would need to be on complete bedrest for 4-6 weeks.
== END 2023-07-31 23:59 | disposition home or self-care (01) ==
LOC: WC 10:30
PROVIDERS: PCP Family Medicine; Referring Provider Surgery; Visit Provider Nurse Practitioner Family
DX: L89.154 Pressure ulcer of sacral region, stage 4 (principal); I10 Essential (primary) hypertension; Z86.16 Personal history of COVID-19; Z87.09 Personal history of other diseases of the respiratory system; Z86.73 Personal history of transient ischemic attack (TIA), and cerebral infarction without residual deficits
CPT/HCPCS: 11043

== ENCOUNTER 2023-08-18 14:00 | Outpatient (RCR) | payer MEDICARE, BC, SELFPAY ==
[2023-08-01 00:23] VITALS: BP 140/67; PULSE 82; RESP 18; TEMP 36.4
[2023-08-11 15:06] VITALS: BP 146/76; PULSE 71; RESP 16; TEMP 36.4
--- NOTE | 2023-08-11 16:47 | PCM.WC.PN ---
History of Present Illness Date of Service: 08/11/23 Chief Complaint: Stage IV sacral ulcer History of Wound: Patient presents to wound care center today for evaluation and management of sacral pressure ulcer. This wound has been present for 1.5 years. It started when patient was hospitalized, on ventilator in ICU with COVID. It has significantly improved in size since then but has been stagnant in progress for some time now. He had been receiving wound care at the [place] wound center. He reports that it has never been cultured, he has never had imaging, and he has been following up in 2-month intervals with no debridement to between. His wound care has consisted Samaria and of otherwise leaving the wound open to air/covered with a thin layer of gauze. He has been instructed to keep it dry so he has been covering and taping over the area during showers. He is at this point frustrated with the lack of recent progress and decided to establish care here instead at the recommendation of a family friend. He did suffer from significant weight loss and malnutrition following his hospitalization from [facility]. He has been making positive progress towards weight gain and overall strength over the last several months. Otherwise, his medical history is significant for asthma, hypertension, narcolepsy. He takes baby aspirin daily but no other blood thinners. He has no prior history of similar wounds. He is very active and able without any limited mobility. He will use an extra padding on his chair/couch if he is having pain in the area of the pressure ulcer, but otherwise does not use padding. He does not have an offloading mattress or pad for his bed. He does weekly cut his grass on a lawnmower, about 5 to 6 acres. He denies fever. His appetite is ok. CT Pelvis was done on 03/18/23. It showed no sclerotic or destructive changes to suggest osteomyelitis. His last wound culture was done on 02/07/23 - It was negative. Surgery on 06/19/23 for excision sacral pressure sore, Stage IV, with partial ostectomy for osteomyelitis. He was discharged home with a wound VAC at 150 to be changed 3 times per week. He has home health to assist with his dressing changes. Progress of Wound: He states he was having issues keeping a seal with the Wound VAC yesterday. His wound bed has areas of hypergranulation tissue. Still able to palpate the bone but it is covered with tissue. There is an odor to the ulcer today. Mickie wound is clear. Objective Data Objective Data Vital Signs: Vital Signs Temp Pulse Resp BP O2 Del Method 97.5 F L 71 16 146/76 H Room Air 08/11/23 15:06 08/11/23 15:06 08/11/23 15:06 08/11/23 15:06 08/11/23 15:06 Oxygen Delivery Method Room Air Charges/Coding Procedures Integumentary 111xxx-113xx: 08024 Global Visit Debridement Note Debridement Note Wound debrided: #1 Sacral area. Laterality: Not Applicable Wound Grade/Stage: Stage IV Type of Debridement: Excisional debridement Anesthesia Used: 5% Lidocaine Gel Depth: Down to and including healthy tissue, in the subcutaneous layer, to muscle and to bone (bone is exposed but not debrided.) Percentage of wound debrided: 100 Instrument Used: 7mm curette Tissue Removed: subcutaneous tissue and muscle. Severity: Fat Layer Exposed (muscle is exposed. Bone is exposed but not debrided.) Amount of bleeding with debridement: Mild Bleeding Controlled with: Pressure and Compression and gauze Patient tolerated procedure: Patient tolerated procedure well Post-Debridement Measurements and Additional Note: Post-Debridement Measurements/Treatment - Nurse 1 - General Ulcer Assessment Start: 08/11/23 15:06 Freq: Status: Active Protocol: DONNIE Activity Type Activity Date Activity User E-sign Co-sign Detail Recorded Client Recorded Date Recorded By Document 08/11/23 15:06 [facility] Desktop 08/11/23 15:07 [facility] 08/11/23 15:06 - Today's Visit Information Type of service Follow-up Visit (Physician/ELECTRIC SERVICEMAN ) Arrival Mode Ambulatory Transfer Assistance None Accompanied by Patient Identification Verified (Name & Yes ) Patient Requires Transmission-Based No Precautions Vital Signs Temperature (97.8 F-99.1 F) 97.5 F L Temperature Source Temporal Pulse Rate (60-100) 71 Pulse Location Monitor Respiratory Rate (12-18) 16 Respiratory rate source Observation Oxygen Delivery Method Room Air Blood Pressure (90/60-120/80) 146/76 H Blood Pressure Mean (mm Hg) 99 Source Monitor Position Sitting Blood Pressure Location Left Arm History Since Last Visit- (Skip if this is Patient's initial visit) Have you changed medications since your No last visit? Any new allergies or adverse reactions No Had a fall/change in ADL's that may Yes increase risk of falls Signs or symptoms of abuse and/or No neglect since last visit Have you been in the hospital since your No last visit? Has dressing in place as prescribed Yes Has compression in place as prescribed N/A Has offloadiing in place as prescribed N/A Experienced any changes in pain level or No management Left Footwear Regular Shoe Right Footwear Regular Shoe Pain Scale: 0-10 Numeric Is Patient Pain Free? Yes KARIE - Nurse 1 - General Ulcer Measurement Start: 08/11/23 15:06 Freq: Status: Active Protocol: Activity Type Activity Date Activity User E-sign Co-sign Detail Recorded Client Recorded Date Recorded By Document 08/11/23 15:06 [facility] Desktop 08/11/23 15:07 BMF 08/11/23 15:06 Wound Center Nurse 1 1-Sacrum -Combined with other wound No -Current Size (cm) - Length 1.4 -Current Size (cm) - Width 0.8 -Current Size (cm) - Depth 1.8 -Total Square Cm 1.12 -Date of Last Picture (Recall this 08/11/23 field) -Photo Taken Yes -Tunneling No -Undermining/Tunneling No -Circular Undermining No -Exudate Amt Medium -Exudate Type Serosanguineous -Wound Margin Distinct, Outline Attached -Granulation Amt Large (67-100%) -Granulation Quality Red -Slough/Fibrin Yes -Necrosis Amt Small (1-33%) -Necrotic Tissue Type Adherent Slough -Structure Exposed Bone -Texture (Mickie-wound Skin Appearance) Assessed, Scarring -Moisture (Mickie-wound Skin Appearance) Assessed -Color (Mickie-wound Skin Appearance) Assessed -Temperature (Mickie-wound Skin No Abnormality Appearance) (Pt Warm) -Tenderness on Palpation (Mickie-wound No Skin Appearance) -Ulcer Cleansing Soap and Water -Foul Odor after Cleansing No -Anesthetic Used 4% Lidocaine Solution KARIE - Nurse 2 - General Ulcer CM Notes Start: 08/11/23 15:06 Freq: Status: Active Protocol: Activity Type Activity Date Activity User E-sign Co-sign Detail Recorded Client Recorded Date Recorded By Document 08/11/23 15:21 BM[facility] Desktop 08/11/23 15:23 BMF Edit Result 08/11/23 15:21 BMF (1) Laptop 08/11/23 15:25 JF Document 08/11/23 15:25 JF Laptop 08/11/23 15:31 JF (1) 1-Sacrum - Correct Patient Yes => No - Correct Side, Site, Position Yes => No - Correct Procedure Yes => No - Procedure Performed Yes => No - Type of Procedure Debridement => - Clinical Debridement Muscle / Fascia => - Tissue Removed Muscle,Fascia => - Tunneling No => - Undermining/Tunneling No => - Circular Undermining No => - Wound/Ulcer Outcome Not Healed => - Ulcer Cleansing Rinsed/Irrigated => with Saline => - Foul Odor after Cleansing No => - Bioengineered Tissue No => - Bleeding Controlled with Pressure => - Treatment Response Procedure => Tolerated Well => - Offloading No => - Debridement - Muscle / Fascia, 1st Yes => 20sq cm 08/11/23 08/11/23 15:21 15:25 Wound Center Nurse 2 1-Sacrum -Time 15:22 15:29 -Correct Patient No Yes -Correct Side, Site, Position No Yes -Correct Procedure No Yes -Procedure Performed No Yes -Type of Procedure Debridement -Clinical Debridement Muscle / Fascia -Tissue Removed Muscle,Fascia -Post Debridement (cm) - Length 2.0 -Post Debridement (cm) - Width 1.4 -Post Debridement (cm) - Depth 1.4 -Total Square (Post) (cm) 2.80 -Area of Debridement (cm) - Length 2.0 -Area of Debridement (cm) - Width 1.4 -Total Square (Area) (cm) 2.80 -Tunneling No -Undermining/Tunneling Yes -Undermining/Tunneling Starts (O'clock 11 ) -Undermining/Tunneling Ends (O'clock) 3 -Maximum Distance (cm) 2.4 -Circular Undermining No -Wound/Ulcer Outcome Not Healed -Ulcer Cleansing Rinsed/ Irrigated with Saline -Foul Odor after Cleansing No -Bioengineered Tissue No -Bleeding Controlled with Pressure -Treatment Response Procedure Tolerated Well -Offloading No -Debridement - Muscle / Fascia, 1st Yes 20sq cm Pain Scale: 0-10 Numeric Is Patient Pain Free? Yes Yes WC - Nurse 3 - General Ulcer D/C NN Start: 08/11/23 15:06 Freq: Status: Active Protocol: Activity Type Activity Date Activity User E-sign Co-sign Detail Recorded Client Recorded Date Recorded By Document 08/11/23 15:40 [facility] Desktop 08/11/23 15:41 [facility] 08/11/23 15:40 Wound Care Center Nurse 3 1-Sacrum -Ulcer Cleansing Rinsed/ Irrigated with Saline -Foul Odor after Cleansing No -Primary Dressing Applied Hysept ($) -Other Dressing DAKINS MOIST GAUZE -Other Covering USED PTS OPTIFOAM; DRSG PER DL RISK ASSESSOR Treatment Response Procedure Tolerated Well Pain Scale: 0-10 Numeric Is Patient Pain Free? Yes WC - Visit Discharge Discharge Condition Stable Ambulatory Status Ambulatory Transportation Private Auto Accompanied by Assessment/Plan Assessment/Plan (1) Pressure ulcer of sacral region, stage 4: CODE(S): L89.154 - Pressure ulcer of sacral region, stage 4 (2) Personal history of COVID-19: CODE(S): Z86.16 - Personal history of COVID-19 (3) History of acute respiratory failure: CODE(S): Z87.09 - Personal history of other diseases of the respiratory system (4) Stroke/cerebrovascular accident: CODE(S): I63.9 - Cerebral infarction, unspecified PLAN: Plan Wound care - Took a wound VAC holiday for a week after his last visit. Will take another wound vac holiday to see if this helps with the odor. Pack wound with Dakins 0.25 moistened gauze covered by ABD daily. Continue to avoid sitting/lying on this area for any length of time. Prealbumin from 06/20/23 was 26.6. Encourage nutritional supplementation with protein to help the healing pocket. Operative culture from 06/19/23 was negative. Had preop culture from 05/01/23 showed Staphylococcus aureus. He was treated with Bactrim. A wound culture was obtained today.? A positive culture will necessitate antibiotic therapy. Renewed Percocet (14 tabs). PDMP reviewed. Follow up [address] Cagle's previous note: With regard to eventual closure of this sacral pressure sore, I don't want to use a muscle flap. Patient can ambulate and a muscle flap would be problematic with some gait disturbances. He would be setup with Physical Therapy to help improve the gait disturbance. Instead I could use a fasciocutaneous flap to improve the blood supply and there is no detachment of muscle with this type of flap. Because of its small size, a local transposition flap is also an option. Postoperatively he would need to be on complete bedrest for 4-6 weeks.
[2023-08-18 13:55] VITALS: BP 142/66; PULSE 71; RESP 18; TEMP 36.4
--- NOTE | 2023-08-18 16:49 | PCM.WC.PN ---
History of Present Illness Date of Service: 08/18/23 Chief Complaint: Stage IV sacral ulcer History of Wound: Patient presents to wound care center today for evaluation and management of sacral pressure ulcer. This wound has been present for 1.5 years. It started when patient was hospitalized, on ventilator in ICU with COVID. It has significantly improved in size since then but has been stagnant in progress for some time now. He had been receiving wound care at the [place] wound center. He reports that it has never been cultured, he has never had imaging, and he has been following up in 2-month intervals with no debridement to between. His wound care has consisted Samaria and of otherwise leaving the wound open to air/covered with a thin layer of gauze. He has been instructed to keep it dry so he has been covering and taping over the area during showers. He is at this point frustrated with the lack of recent progress and decided to establish care here instead at the recommendation of a family friend. He did suffer from significant weight loss and malnutrition following his hospitalization from [facility]. He has been making positive progress towards weight gain and overall strength over the last several months. Otherwise, his medical history is significant for asthma, hypertension, narcolepsy. He takes baby aspirin daily but no other blood thinners. He has no prior history of similar wounds. He is very active and able without any limited mobility. He will use an extra padding on his chair/couch if he is having pain in the area of the pressure ulcer, but otherwise does not use padding. He does not have an offloading mattress or pad for his bed. He does weekly cut his grass on a lawnmower, about 5 to 6 acres. He denies fever. His appetite is ok. CT Pelvis was done on 03/18/23. It showed no sclerotic or destructive changes to suggest osteomyelitis. His last wound culture was done on 02/07/23 - It was negative. Surgery on 06/19/23 for excision sacral pressure sore, Stage IV, with partial ostectomy for osteomyelitis. He was discharged home with a wound VAC at 150 to be changed 3 times per week. He has home health to assist with his dressing changes. Progress of Wound: He took a VAC holiday this past week and would like not to restart the wound VAC. States he is not having any issues with wound care. He is not longer having any odor from the wound. His discomfort is much less without the wound VAC. Wound bed is pink. Less hypergranulation tissue present. Mickie wound is clear. Objective Data Objective Data Vital Signs: Vital Signs Temp Pulse Resp BP O2 Del Method 97.5 F L 71 18 142/66 H Room Air 08/18/23 13:55 08/18/23 13:55 08/18/23 13:55 08/18/23 13:55 08/11/23 15:06 Oxygen Delivery Method Room Air Lab / Micro Data Micro: Microbiology 08/12/23 15:26 Wound - Sacral Gram Stain - Final 08/12/23 15:26 Wound - Sacral Wound Culture - Final Corynebacterium striatum 08/12/23 15:26 Wound - Sacral Anaerobic Culture - Final Anaerobic cocci Charges/Coding Procedures Integumentary 111xxx-113xx: 21743 Global Visit Debridement Note Debridement Note Wound debrided: #1 Sacral area. Laterality: Not Applicable Wound Grade/Stage: Stage IV Type of Debridement: Excisional debridement Anesthesia Used: 5% Lidocaine Gel Depth: Down to and including healthy tissue, in the subcutaneous layer, to muscle and to bone (bone is palpable but no longer exposed and not debrided.) Percentage of wound debrided: 100 Instrument Used: 7mm curette Tissue Removed: subcutaneous tissue and muscle. Severity: Fat Layer Exposed (muscle is exposed. Bone is exposed but not debrided.) Amount of bleeding with debridement: Mild Bleeding Controlled with: Pressure and Compression and gauze Patient tolerated procedure: Patient tolerated procedure well Post-Debridement Measurements and Additional Note: Post-Debridement Measurements/Treatment - Nurse 1 - General Ulcer Assessment Start: 08/11/23 15:06 Freq: Status: Active Protocol: DONNIE Activity Type Activity Date Activity User E-sign Co-sign Detail Recorded Client Recorded Date Recorded By Document 08/11/23 15:06 BMF Desktop 08/11/23 15:07 BMF Document 08/18/23 13:55 DL Desktop 08/18/23 14:01 DL 08/11/23 08/18/23 15:06 13:55 - Today's Visit Information Type of service Follow-up Visit Follow-up Visit (Physician/DIRECTOR OF CASEWORK SERVICES (Physician/DIRECTOR OF CASEWORK SERVICES ) ) Arrival Mode Ambulatory Ambulatory Transfer Assistance None None Accompanied by Patient Identification Verified (Name & Yes Yes ) Patient Requires Transmission-Based No No Precautions Vital Signs Temperature (97.8 F-99.1 F) 97.5 F L 97.5 F L Temperature Source Temporal Temporal Pulse Rate (60-100) 71 71 Pulse Location Monitor Apical Respiratory Rate (12-18) 16 18 Respiratory rate source Observation Observation Oxygen Delivery Method Room Air Blood Pressure (90/60-120/80) 146/76 H 142/66 H Blood Pressure Mean (mm Hg) 99 91 Source Monitor Monitor Position Sitting Blood Pressure Location Left Arm History Since Last Visit- (Skip if this is Patient's initial visit) Have you changed medications since your No No last visit? Any new allergies or adverse reactions No No Had a fall/change in ADL's that may Yes No increase risk of falls Signs or symptoms of abuse and/or No No neglect since last visit Have you been in the hospital since your No No last visit? Has dressing in place as prescribed Yes Yes Has compression in place as prescribed N/A N/A Has offloadiing in place as prescribed N/A Yes Experienced any changes in pain level or No No management Left Footwear Regular Shoe Right Footwear Regular Shoe Pain Scale: 0-10 Numeric Is Patient Pain Free? Yes Yes WC - Nurse 1 - General Ulcer Measurement Start: 08/11/23 15:06 Freq: Status: Active Protocol: Activity Type Activity Date Activity User E-sign Co-sign Detail Recorded Client Recorded Date Recorded By Document 08/11/23 15:06 [facility] Desktop 08/11/23 15:07 [facility] Document 08/18/23 13:55 DL Desktop 08/18/23 14:01 DL 08/11/23 08/18/23 15:06 13:55 Wound Center Nurse 1 1-Sacrum -Combined with other wound No -Current Size (cm) - Length 1.4 2.3 -Current Size (cm) - Width 0.8 1.5 -Current Size (cm) - Depth 1.8 2.4 -Total Square Cm 1.12 3.45 -Date of Last Picture (Recall this 08/11/23 field) -Photo Taken Yes -Tunneling No -Undermining/Tunneling No -Undermining/Tunneling Starts (O'clock 9 ) -Undermining/Tunneling Ends (O'clock) 3 -Maximum Distance (cm) 2 -Circular Undermining No -Exudate Amt Medium Medium -Exudate Type Serosanguineous Serosanguineous -Wound Margin Distinct, Distinct, Outline Outline Attached Attached -Granulation Amt Large (67-100%) Medium (34-66%) -Granulation Quality Red Red -Slough/Fibrin Yes -Necrosis Amt Small (1-33%) Medium (34-66%) -Necrotic Tissue Type Adherent Slough Adherent Slough -Structure Exposed Bone Bone -Texture (Mickie-wound Skin Appearance) Assessed, Scarring Scarring -Moisture (Mickie-wound Skin Appearance) Assessed No Abnormality -Color (Mickie-wound Skin Appearance) Assessed No Abnormality -Temperature (Mickie-wound Skin No Abnormality No Abnormality Appearance) (Pt Warm) (Pt Warm) -Tenderness on Palpation (Mickie-wound No Skin Appearance) -Ulcer Cleansing Soap and Water Soap and Water -Foul Odor after Cleansing No No -Anesthetic Used 4% Lidocaine 4% Lidocaine Solution Solution WC - Nurse 2 - General Ulcer CM Notes Start: 08/11/23 15:06 Freq: Status: Active Protocol: Activity Type Activity Date Activity User E-sign Co-sign Detail Recorded Client Recorded Date Recorded By Document 08/11/23 15:21 BMF Desktop 08/11/23 15:23 BMF Edit Result 08/11/23 15:21 BMF (1) Laptop 08/11/23 15:25 Document 08/11/23 15:25 Laptop 08/11/23 15:31 Document 08/18/23 14:31 Laptop 08/18/23 14:36 (1) 1-Sacrum - Correct Patient Yes => No - Correct Side, Site, Position Yes => No - Correct Procedure Yes => No - Procedure Performed Yes => No - Type of Procedure Debridement => - Clinical Debridement Muscle / Fascia => - Tissue Removed Muscle,Fascia => - Tunneling No => - Undermining/Tunneling No => - Circular Undermining No => - Wound/Ulcer Outcome Not Healed => - Ulcer Cleansing Rinsed/Irrigated => with Saline => - Foul Odor after Cleansing No => - Bioengineered Tissue No => - Bleeding Controlled with Pressure => - Treatment Response Procedure => Tolerated Well => - Offloading No => - Debridement - Muscle / Fascia, 1st Yes => 20sq cm 12/11/23 12/11/23 12/18/23 15:21 15:25 14:31 Wound Center Nurse 2 1-Sacrum -Time 15:22 15:29 14:31 -Correct Patient No Yes Yes -Correct Side, Site, Position No Yes Yes -Correct Procedure No Yes Yes -Procedure Performed No Yes Yes -Type of Procedure Debridement Debridement -Clinical Debridement Muscle / Fascia Muscle / Fascia -Tissue Removed Muscle,Fascia Muscle,Fascia -Post Debridement (cm) - Length 2.0 1.7 -Post Debridement (cm) - Width 1.4 2.0 -Post Debridement (cm) - Depth 1.4 2.5 -Total Square (Post) (cm) 2.80 3.40 -Area of Debridement (cm) - Length 2.0 1.7 -Area of Debridement (cm) - Width 1.4 2.0 -Total Square (Area) (cm) 2.80 3.40 -Tunneling No No -Undermining/Tunneling Yes No -Undermining/Tunneling Starts (O'clock 11 ) -Undermining/Tunneling Ends (O'clock) 3 -Maximum Distance (cm) 2.4 -Circular Undermining No No -Wound/Ulcer Outcome Not Healed Not Healed -Ulcer Cleansing Rinsed/ Rinsed/ Irrigated with Irrigated with Saline Saline -Foul Odor after Cleansing No No -Bioengineered Tissue No No -Bleeding Controlled with Pressure Pressure -Treatment Response Procedure Procedure Tolerated Well Tolerated Well -Offloading No No -Debridement - Muscle / Fascia, 1st Yes Yes 20sq cm Pain Scale: 0-10 Numeric Is Patient Pain Free? Yes Yes Yes - Nurse 3 - General Ulcer D/C NN Start: 08/11/23 15:06 Freq: Status: Active Protocol: Activity Type Activity Date Activity User E-sign Co-sign Detail Recorded Client Recorded Date Recorded By Document 08/11/23 15:40 [facility] Desktop 08/11/23 15:41 [facility] 08/11/23 15:40 Wound Care Center Nurse 3 1-Sacrum -Ulcer Cleansing Rinsed/ Irrigated with Saline -Foul Odor after Cleansing No -Primary Dressing Applied Hysept ($) -Other Dressing DAKINS MOIST GAUZE -Other Covering USED PTS OPTIFOAM; DRSG PER DL [employer] Treatment Response Procedure Tolerated Well Pain Scale: 0-10 Numeric Is Patient Pain Free? Yes WC - Visit Discharge Discharge Condition Stable Ambulatory Status Ambulatory Transportation Private Auto Accompanied by Assessment/Plan Assessment/Plan (1) Pressure ulcer of sacral region, stage 4: CODE(S): L89.154 - Pressure ulcer of sacral region, stage 4 (2) Personal history of COVID-19: CODE(S): Z86.16 - Personal history of COVID-19 (3) History of acute respiratory failure: CODE(S): Z87.09 - Personal history of other diseases of the respiratory system (4) Stroke/cerebrovascular accident: CODE(S): I63.9 - Cerebral infarction, unspecified PLAN: Plan Wound care - Discontinue wound VAC. Pack wound with Dakins 0.25 moistened gauze covered by ABD daily. Continue to avoid sitting/lying on this area for any length of time. Prealbumin from 06/20/23 was 26.6. Encourage nutritional supplementation with protein to help the healing pocket. Operative culture from 06/19/23 was negative. Had preop culture from 05/01/23 showed Staphylococcus aureus. He was treated with Bactrim. Wound culture obtained 08/12/23 which was positive for Corynebacterium striatum and Anaerobic cocci. He is being treated with Flagyl. Follow up 2 weeks due to the holidays. From Dr. Cagle's previous note: With regard to eventual closure of this sacral pressure sore, I don't want to use a muscle flap. Patient can ambulate and a muscle flap would be problematic with some gait disturbances. He would be setup with Physical Therapy to help improve the gait disturbance. Instead I could use a fasciocutaneous flap to improve the blood supply and there is no detachment of muscle with this type of flap. Because of its small size, a local transposition flap is also an option. Postoperatively he would need to be on complete bedrest for 4-6 weeks.
== END 2023-08-31 23:59 | disposition home or self-care (01) ==
LOC: WC 14:00
PROVIDERS: PCP Family Medicine; Referring Provider Surgery; Visit Provider Nurse Practitioner Family
DX: L89.154 Pressure ulcer of sacral region, stage 4 (principal); I10 Essential (primary) hypertension; Z86.16 Personal history of COVID-19; Z86.73 Personal history of transient ischemic attack (TIA), and cerebral infarction without residual deficits
CPT/HCPCS: 11043; 87070; 87075; 87077; 87205

== ENCOUNTER 2023-10-01 13:00 | Outpatient (RCR) | payer MEDICARE, BC, SELFPAY ==
[2023-09-01 00:37] VITALS: BP 142/66; PULSE 71; RESP 18; TEMP 36.4
[2023-09-03 14:28] VITALS: BP 172/63; PULSE 72; RESP 16; TEMP 36.4
--- NOTE | 2023-09-03 22:34 | PN.PCM_ITS ---
History of Present Illness Date of Service: 09/03/23 Chief Complaint: Stage IV sacral ulcer History of Wound: Patient presents to wound care center today for evaluation and management of sacral pressure ulcer. This wound has been present for 1.5 years. It started when patient was hospitalized, on ventilator in ICU with COVID. It has significantly improved in size since then but has been stagnant in progress for some time now. He had been receiving wound care at the [place] wound center. He reports that it has never been cultured, he has never had imaging, and he has been following up in 2-month intervals with no debridement to between. His wound care has consisted Samaria and of otherwise leaving the wound open to air/covered with a thin layer of gauze. He has been instructed to keep it dry so he has been covering and taping over the area during showers. He is at this point frustrated with the lack of recent progress and decided to establish care here instead at the recommendation of a family friend. Surgery 06/19/23 - Excision sacral pressure sore, Stage IV, with partial o stectomy for osteomyelitis. Wound Care - Dakin's. Operative culture soft tissue - negative. Operative culture bone - negative. Pathology - Reactive changes. Mild chronic inflammation and minimal acute inflammation. Prealbumin from 06/20/23 was 26.6. Encourage nutritional supplementation with protein to help the healing process. CT Pelvis was done on 03/18/23. It showed no sclerotic or destructive changes to suggest osteomyelitis. Recent wound culture on 08/12/23 was positive for Anaerobic cocci and Corynebacterium striatum. He was treated with Flagyl. Today he denies fever. His appetite is good. Progress of Wound: Improved. Objective Data Objective Data Vital Signs: Vital Signs Temp Pulse Resp BP O2 Del Method 97.6 F L 72 16 172/63 H Room Air 09/03/23 14:28 09/03/23 14:28 09/03/23 14:28 09/03/23 14:28 09/03/23 14:28 Oxygen Delivery Method Room Air Prealbumin from 06/20/23 was 26.6.? Encourage nutritional supplementation with protein to help the healing process. Lab / Micro Data Attestation: I reviewed the patient's lab results. Charges/Coding Procedures Integumentary 111xxx-113xx: 26924 Global Visit (ICD-10 - L89.154, Z86.16, Z87.09, I63.9) Debridement Note Debridement Note Wound debrided: #1 sacral ulcer Laterality: Not Applicable Wound Grade/Stage: IV. Type of Debridement: Excisional debridement Anesthesia Used: 5% Lidocaine Gel Depth: Down to and including healthy tissue, in the subcutaneous layer, to muscle and - (bone is palpable but not exposed.) Percentage of wound debrided: 100 Instrument Used: 5mm curette Tissue Removed: subcutaneous tissue and muscle. Severity: Fat Layer Exposed (muscle is exposed. bone is palpable but not exposed.) Amount of bleeding with debridement: Mild Bleeding Controlled with: Pressure and Compression and gauze Patient tolerated procedure: Patient tolerated procedure well Post-Debridement Measurements and Additional Note: Post-Debridement Measurements/Treatment - Nurse 1 - General Ulcer Assessment Start: 09/03/23 14:28 Freq: Status: Active Protocol: [email or web address] Activity Type Activity Date Activity User E-sign Co-sign Detail Recorded Client Recorded Date Recorded By Document 09/03/23 14:28 [facility] Desktop 09/03/23 14:35 [facility] 09/03/23 14:28 - Today's Visit Information Type of service Follow-up Visit (Physician/[employer] ) Arrival Mode Ambulatory Transfer Assistance None Accompanied by Patient Identification Verified (Name & Yes ) Patient Requires Transmission-Based No Precautions Vital Signs Temperature (97.8 F-99.1 F) 97.6 F L Temperature Source Temporal Pulse Rate (60-100) 72 Pulse Location Monitor Respiratory Rate (12-18) 16 Respiratory rate source Observation Oxygen Delivery Method Room Air Blood Pressure (90/60-120/80) 172/63 H Blood Pressure Mean (mm Hg) 99 Source Monitor Position Sitting Blood Pressure Location Right Arm History Since Last Visit- (Skip if this is Patient's initial visit) Have you changed medications since your No last visit? Any new allergies or adverse reactions No Had a fall/change in ADL's that may No increase risk of falls Signs or symptoms of abuse and/or No neglect since last visit Have you been in the hospital since your No last visit? Has dressing in place as prescribed Yes Has compression in place as prescribed N/A Has offloadiing in place as prescribed N/A Experienced any changes in pain level or No management Left Footwear Regular Shoe Right Footwear Regular Shoe Pain Scale: 0-10 Numeric Is Patient Pain Free? Yes - Nurse 1 - General Ulcer Measurement Start: 09/03/23 14:28 Freq: Status: Active Protocol: Activity Type Activity Date Activity User E-sign Co-sign Detail Recorded Client Recorded Date Recorded By Document 09/03/23 14:28 BM Desktop 09/03/23 14:35 BMF 09/03/23 14:28 Wound Center Nurse 1 1-Sacrum -Combined with other wound No -Current Size (cm) - Length 1.8 -Current Size (cm) - Width 1.6 -Current Size (cm) - Depth 1.6 -Total Square Cm 2.88 -Date of Last Picture (Recall this 09/03/23 field) -Photo Taken Yes -Epithelialization None Present -Tunneling No -Undermining/Tunneling Yes -Undermining/Tunneling Starts (O'clock 11 ) -Undermining/Tunneling Ends (O'clock) 6 -Maximum Distance (cm) 3.3 -Circular Undermining No -Exudate Amt Large -Exudate Type Serosanguineous -Wound Margin Distinct, Outline Attached -Granulation Amt Large (67-100%) -Granulation Quality Dowell -Slough/Fibrin Yes -Necrosis Amt Small (1-33%) -Necrotic Tissue Type Adherent Slough -Texture (Mickie-wound Skin Appearance) Assessed, Scarring -Moisture (Mickie-wound Skin Appearance) Assessed -Color (Mickie-wound Skin Appearance) Assessed -Temperature (Mickie-wound Skin No Abnormality Appearance) (Pt Warm) -Tenderness on Palpation (Mickie-wound No Skin Appearance) -Ulcer Cleansing Rinsed/ Irrigated with Saline -Foul Odor after Cleansing No -Anesthetic Used 5% Lidocaine Gel WC - Nurse 2 - General Ulcer CM Notes Start: 09/03/23 14:28 Freq: Status: Active Protocol: Activity Type Activity Date Activity User E-sign Co-sign Detail Recorded Client Recorded Date Recorded By Document 09/03/23 14:49 MW Desktop 09/03/23 14:53 MW 09/03/23 14:49 Wound Center Nurse 2 -Time 14:49 -Correct Patient Yes -Correct Side, Site, Position Yes -Correct Procedure Yes -Procedure Performed Yes -Type of Procedure Debridement -Clinical Debridement Muscle / Fascia -Tissue Removed Muscle,Fascia -Post Debridement (cm) - Length 1.7 -Post Debridement (cm) - Width 1.7 -Post Debridement (cm) - Depth 2.3 -Total Square (Post) (cm) 2.89 -Area of Debridement (cm) - Length 1.7 -Area of Debridement (cm) - Width 1.7 -Total Square (Area) (cm) 2.89 -Tunneling No -Undermining/Tunneling No -Circular Undermining No -Wound/Ulcer Outcome Not Healed -Ulcer Cleansing Rinsed/ Irrigated with Saline -Foul Odor after Cleansing No -Bioengineered Tissue No -Bleeding Controlled with Pressure -Treatment Response Procedure Tolerated Well -Offloading No -Debridement - Muscle / Fascia, 1st Yes 20sq cm Pain Scale: 0-10 Numeric Is Patient Pain Free? Yes - Nurse 3 - General Ulcer D/C NN Start: 09/03/23 14:28 Freq: Status: Active Protocol: Activity Type Activity Date Activity User E-sign Co-sign Detail Recorded Client Recorded Date Recorded By Document 09/03/23 14:55 MW Desktop 09/03/23 14:57 MW 09/03/23 14:55 Wound Care Center Nurse 3 1-Sacrum -Ulcer Cleansing Rinsed/ Irrigated with Saline -Foul Odor after Cleansing No -Negative Pressure Wound Therapy N/A -Primary Dressing Applied Mepilex Border -Other Dressing Dakins 0.25% moistened gauze -Mepilex Border 1 Treatment Response Procedure Tolerated Well Pain Scale: 0-10 Numeric Is Patient Pain Free? Yes Teaching: Wound Center Dressing Your Wound -Person Taught Patient,Family -Teaching Method Discussion -Response to teaching Verbalize understanding - Visit Discharge Discharge Condition Stable Ambulatory Status Ambulatory Transportation Private Auto Accompanied by Medication Reconcilliation completed & No provided to patient/care provider Clinical Summary of Care Provided Yes Assessment/Plan Assessment/Plan (1) Pressure ulcer of sacral region, stage 4: CODE(S): L89.154 - Pressure ulcer of sacral region, stage 4 (2) Personal history of COVID-19: CODE(S): Z86.16 - Personal history of COVID-19 (3) History of acute respiratory failure: CODE(S): Z87.09 - Personal history of other diseases of the respiratory system (4) Stroke/cerebrovascular accident: CODE(S): I63.9 - Cerebral infarction, unspecified PLAN: Plan Continue Dakins 0.25 moistened gauze covered by ABD daily. Patient is ambulatory. Continue to avoid sitting/lying on this area for any length of time. Prealbumin from 06/20/23 was 26.6. Encourage nutritional supplementation with p rotein to help the healing pocket. Operative cultures (soft tissue and bone) from 06/19/23 were negative. Pathology from 06/19/23 was negative for osteomyelitis. Wound culture obtained 08/12/23 was positive for Corynebacterium striatum and Anaerobic cocci. He was treated with Flagyl. Follow up 2 weeks. With regard to eventual closure of this sacral pressure sore, I don't want to use a muscle flap. Patient can ambulate and a muscle flap would be problematic with some gait disturbances. He would have to be setup with Physical Therapy to help improve the gait disturbance. Instead I could use a fasciocutaneous flap to improve the blood supply and there is no detachment of muscle with this type of flap. Because of its small size, a local transposition flap is also an option. Postoperatively he would need to be on complete bedrest for up to 4-6 weeks. A local transposition skin flap would need less bedrest than a fasciocutaneous flap.
[2023-09-17 13:06] VITALS: BP 162/80; PULSE 75; RESP 16; TEMP 36.4
--- NOTE | 2023-09-17 15:13 | PN.PCM_ITS ---
History of Present Illness Date of Service: 09/17/23 Chief Complaint: Stage IV sacral ulcer History of Wound: Patient presents to wound care center today for evaluation and management of sacral pressure ulcer. This wound has been present for 1.5 years. It started when patient was hospitalized, on ventilator in ICU with COVID. It has significantly improved in size since then but has been stagnant in progress for some time now. He had been receiving wound care at the [place] wound center. He reports that it has never been cultured, he has never had imaging, and he has been following up in 2-month intervals with no debridement to between. His wound care has consisted Samaria and of otherwise leaving the wound open to air/covered with a thin layer of gauze. He has been instructed to keep it dry so he has been covering and taping over the area during showers. He is at this point frustrated with the lack of recent progress and decided to establish care here instead at the recommendation of a family friend. Surgery 06/19/23 - Excision sacral pressure sore, Stage IV, with partial o stectomy for osteomyelitis. Wound Care - Dakin's. Operative culture soft tissue - negative. Operative culture bone - negative. Pathology - Reactive changes. Mild chronic inflammation and minimal acute inflammation. Prealbumin from 06/20/23 was 26.6. Encourage nutritional supplementation with protein to help the healing process. CT Pelvis was done on 03/18/23. It showed no sclerotic or destructive changes to suggest osteomyelitis. Recent wound culture on 08/12/23 was positive for Anaerobic cocci and Corynebacterium striatum. He was treated with Flagyl. Today he denies fever. His appetite is good. Progress of Wound: Sacral ulcer has a decreased depth. Base of ulcer is beefy pink. Objective Data Objective Data Vital Signs: Vital Signs Temp Pulse Resp BP O2 Del Method 97.5 F L 75 16 162/80 H Room Air 09/17/23 13:06 09/17/23 13:06 09/17/23 13:06 09/17/23 13:06 09/17/23 13:06 Oxygen Delivery Method Room Air Charges/Coding Procedures Integumentary 111xxx-113xx: [id number] Global Visit Debridement Note Debridement Note Wound debrided: #1 sacral ulcer Laterality: Not Applicable Wound Grade/Stage: IV. Type of Debridement: Excisional debridement Anesthesia Used: 5% Lidocaine Gel Depth: Down to and including healthy tissue, in the subcutaneous layer, to muscle and - (bone is palpable but not exposed.) Percentage of wound debrided: 100 Instrument Used: 5mm curette Tissue Removed: subcutaneous tissue and muscle. Severity: Fat Layer Exposed (muscle is exposed. bone is palpable but not exposed.) Amount of bleeding with debridement: Mild Bleeding Controlled with: Pressure and Compression and gauze Patient tolerated procedure: Patient tolerated procedure well Post-Debridement Measurements and Additional Note: Post-Debridement Measurements/Treatment - Nurse 1 - General Ulcer Assessment Start: 09/03/23 14:28 Freq: Status: Active Protocol: [employer] Activity Type Activity Date Activity User E-sign Co-sign Detail Recorded Client Recorded Date Recorded By Document 09/03/23 14:28 [facility] Desktop 09/03/23 14:35 [facility] Document 09/17/23 13:06 [facility] Desktop 09/17/23 13:14 F 09/03/23 09/17/23 14:28 13:06 - Today's Visit Information Type of service Follow-up Visit Follow-up Visit (Physician/RESIDENTIAL COLLECTIONS (Physician/RESIDENTIAL COLLECTIONS ) ) Arrival Mode Ambulatory Ambulatory Transfer Assistance None None Accompanied by Patient Identification Verified (Name & Yes Yes ) Patient Requires Transmission-Based No No Precautions Vital Signs Temperature (97.8 F-99.1 F) 97.6 F L 97.5 F L Temperature Source Temporal Temporal Pulse Rate (60-100) 72 75 Pulse Location Monitor Monitor Respiratory Rate (12-18) 16 16 Respiratory rate source Observation Observation Oxygen Delivery Method Room Air Room Air Blood Pressure (90/60-120/80) 172/63 H 162/80 H Blood Pressure Mean (mm Hg) 99 107 Source Monitor Monitor Position Sitting Sitting Blood Pressure Location Right Arm Left Arm History Since Last Visit- (Skip if this is Patient's initial visit) Have you changed medications since your No No last visit? Any new allergies or adverse reactions No No Had a fall/change in ADL's that may No No increase risk of falls Signs or symptoms of abuse and/or No No neglect since last visit Have you been in the hospital since your No No last visit? Has dressing in place as prescribed Yes Yes Has compression in place as prescribed N/A N/A Has offloadiing in place as prescribed N/A N/A Experienced any changes in pain level or No No management Left Footwear Regular Shoe Regular Shoe Right Footwear Regular Shoe Regular Shoe Pain Scale: 0-10 Numeric Is Patient Pain Free? Yes Yes - Nurse 1 - General Ulcer Measurement Start: 09/03/23 14:28 Freq: Status: Active Protocol: Activity Type Activity Date Activity User E-sign Co-sign Detail Recorded Client Recorded Date Recorded By Document 09/03/23 14:28 [facility] Desktop 09/03/23 14:35 BM Document 09/17/23 13:06 BM Desktop 09/17/23 13:14 BMF 09/03/23 09/17/23 14:28 13:06 Wound Center Nurse 1 1-Sacrum -Combined with other wound No No -Current Size (cm) - Length 1.8 1.7 -Current Size (cm) - Width 1.6 1.1 -Current Size (cm) - Depth 1.6 2.1 -Total Square Cm 2.88 1.87 -Date of Last Picture (Recall this 09/03/23 09/17/23 field) -Photo Taken Yes Yes -Epithelialization None Present None Present -Tunneling No -Undermining/Tunneling Yes -Undermining/Tunneling Starts (O'clock 11 ) -Undermining/Tunneling Ends (O'clock) 6 -Maximum Distance (cm) 3.3 -Circular Undermining No -Exudate Amt Large Medium -Exudate Type Serosanguineous Serosanguineous -Wound Margin Distinct, Distinct, Outline Outline Attached Attached -Granulation Amt Large (67-100%) Large (67-100%) -Granulation Quality [place] Red -Slough/Fibrin Yes Yes -Necrosis Amt Small (1-33%) Small (1-33%) -Necrotic Tissue Type Adherent Slough Adherent Slough -Texture (Mickie-wound Skin Appearance) Assessed, Assessed, Scarring Scarring -Moisture (Mickie-wound Skin Appearance) Assessed Assessed -Color (Mickie-wound Skin Appearance) Assessed Assessed -Temperature (Mickie-wound Skin No Abnormality No Abnormality Appearance) (Pt Warm) (Pt Warm) -Tenderness on Palpation (Mickie-wound No No Skin Appearance) -Ulcer Cleansing Rinsed/ Rinsed/ Irrigated with Irrigated with Saline Saline -Foul Odor after Cleansing No No -Anesthetic Used 5% Lidocaine 5% Lidocaine Gel Gel - Nurse 2 - General Ulcer CM Notes Start: 09/03/23 14:28 Freq: Status: Active Protocol: Activity Type Activity Date Activity User E-sign Co-sign Detail Recorded Client Recorded Date Recorded By Document 09/03/23 14:49 MW Desktop 09/03/23 14:53 MW Document 09/17/23 13:38 MW Desktop 09/17/23 13:42 MW 09/03/23 09/17/23 14:49 13:38 Wound Center Nurse 2 1-Sacrum -Time 14:49 13:41 -Correct Patient Yes Yes -Correct Side, Site, Position Yes Yes -Correct Procedure Yes Yes -Procedure Performed Yes Yes -Type of Procedure Debridement Debridement -Clinical Debridement Muscle / Fascia Muscle / Fascia -Tissue Removed Muscle,Fascia Muscle,Fascia -Post Debridement (cm) - Length 1.7 1.8 -Post Debridement (cm) - Width 1.7 1.5 -Post Debridement (cm) - Depth 2.3 1.1 -Total Square (Post) (cm) 2.89 2.70 -Area of Debridement (cm) - Length 1.7 1.8 -Area of Debridement (cm) - Width 1.7 1.5 -Total Square (Area) (cm) 2.89 2.70 -Tunneling No No -Undermining/Tunneling No Yes -Undermining/Tunneling Starts (O'clock 1 ) -Undermining/Tunneling Ends (O'clock) 3 -Maximum Distance (cm) 1.4 -Circular Undermining No No -Wound/Ulcer Outcome Not Healed Not Healed -Ulcer Cleansing Rinsed/ Rinsed/ Irrigated with Irrigated with Saline Saline -Foul Odor after Cleansing No No -Bioengineered Tissue No No -Bleeding Controlled with Pressure Pressure -Treatment Response Procedure Tolerated Well -Offloading No -Debridement - Muscle / Fascia, 1st Yes Yes 20sq cm Pain Scale: 0-10 Numeric Is Patient Pain Free? Yes Yes KARIE - Nurse 3 - General Ulcer D/C NN Start: 09/03/23 14:28 Freq: Status: Active Protocol: Activity Type Activity Date Activity User E-sign Co-sign Detail Recorded Client Recorded Date Recorded By Document 09/03/23 14:55 MW Desktop 09/03/23 14:57 MW Document 09/17/23 13:45 MW Desktop 09/17/23 13:45 MW 09/03/23 09/17/23 14:55 13:45 Wound Care Center Nurse 3 1-Sacrum -Ulcer Cleansing Rinsed/ Rinsed/ Irrigated with Irrigated with Saline Saline -Foul Odor after Cleansing No No -Negative Pressure Wound Therapy N/A N/A -Primary Dressing Applied Mepilex Border Hysept ($), Mepilex Border -Other Dressing Dakins 0.25% moistened gauze -Mepilex Border 1 1 Treatment Response Procedure Procedure Tolerated Well Tolerated Well Pain Scale: 0-10 Numeric Is Patient Pain Free? Yes Yes Teaching: Wound Center Dressing Your Wound -Person Taught Patient,Family Patient -Teaching Method Discussion Discussion, Demonstration -Response to teaching Verbalize Verbalize understanding understanding WC - Visit Discharge Discharge Condition Stable Stable Ambulatory Status Ambulatory Ambulatory Transportation Private Auto Private Auto Accompanied by Medication Reconcilliation completed & No No provided to patient/care provider Clinical Summary of Care Provided Yes Yes Assessment/Plan Assessment/Plan (1) Pressure ulcer of sacral region, stage 4: CODE(S): L89.154 - Pressure ulcer of sacral region, stage 4 (2) Personal history of COVID-19: CODE(S): Z86.16 - Personal history of COVID-19 (3) History of acute respiratory failure: CODE(S): Z87.09 - Personal history of other diseases of the respiratory system (4) Stroke/cerebrovascular accident: CODE(S): I63.9 - Cerebral infarction, unspecified PLAN: Plan Continue Dakins 0.25% moistened gauze covered by silicone border dressing ([place] SAP or Mepilex). Patient is ambulatory. Continue to avoid sitting/lying on this area for any length of time. Prealbumin from 06/20/23 was 26.6. Encourage nutritional supplementation with protein to help the healing pocket. Operative cultures (soft tissue and bone) from 06/19/23 were negative. Pathology from 06/19/23 was negative for osteomyelitis. Wound culture obtained 08/12/23 was positive for Corynebacterium striatum and Anaerobic cocci. He was treated with Flagyl. Follow up [address] Cagle's previous note: With regard to eventual closure of this sacral pressure sore, I don't want to use a muscle flap. Patient can ambulate and a muscle flap would be problematic with some gait disturbances. He would have to be setup with Physical Therapy to help improve the gait disturbance. Instead I could use a fasciocutaneous flap to improve the blood supply and there is no detachment of muscle with this type of flap. Because of its small size, a local transposition flap is also an option. Postoperatively he would need to be on complete bedrest for up to 4-6 weeks. A local transposition skin flap would need less bedrest than a fasciocutaneous flap.
[2023-10-01 13:06] VITALS: BP 137/65; PULSE 65; RESP 16; TEMP 37
--- NOTE | 2023-10-01 15:31 | PCM.WC.PN ---
History of Present Illness Date of Service: 10/01/23 Chief Complaint: Stage IV sacral ulcer History of Wound: Patient presents to wound care center today for evaluation and management of sacral pressure ulcer. This wound has been present for 1.5 years. It started when patient was hospitalized, on ventilator in ICU with COVID. It has significantly improved in size since then but has been stagnant in progress for some time now. He had been receiving wound care at the [place] [facility]. He reports that it has never been cultured, he has never had imaging, and he has been following up in 2-month intervals with no debridement to between. His wound care has consisted Samaria and of otherwise leaving the wound open to air/covered with a thin layer of gauze. He has been instructed to keep it dry so he has been covering and taping over the area during showers. He is at this point frustrated with the lack of recent progress and decided to establish care here instead at the recommendation of a family friend. Surgery 06/19/23 - Excision sacral pressure sore, Stage IV, with partial ostectomy for osteomyelitis. Wound Care - Dakin's. Operative culture soft tissue - negative. Operative culture bone - negative. Pathology - Reactive changes. Mild chronic inflammation and minimal acute inflammation. Prealbumin from 06/20/23 was 26.6. Encourage nutritional supplementation with protein to help the healing process. CT Pelvis was done on 03/18/23. It showed no sclerotic or destructive changes to suggest osteomyelitis. Recent wound culture on 08/12/23 was positive for Anaerobic cocci and Corynebacterium striatum. He was treated with Flagyl. Today he denies fever. His appetite is good. Progress of Wound: Sacral ulcer has a decreased depth. Base of ulcer is beefy pink. Objective Data Objective Data Vital Signs: Vital Signs Temp Pulse Resp BP O2 Del Method 98.6 F 65 16 137/65 H Room Air 10/01/23 13:06 10/01/23 13:06 10/01/23 13:06 10/01/23 13:06 10/01/23 13:06 Oxygen Delivery Method Room Air Prealbumin from 06/20/23 was 26.6.? Encourage nutritional supplementation with protein to help the healing process. Lab / Micro Data Attestation: I reviewed the patient's lab results. Charges/Coding Procedures Integumentary 111xxx-113xx: [id number] Roxi musc/fascia 20 sq cm/< (ICD-10 - L89.154, Z86.16, Z87.09, I63.9) Debridement Note Debridement Note Wound debrided: #1 sacral ulcer Laterality: Not Applicable Wound Grade/Stage: IV. Type of Debridement: Excisional debridement Anesthesia Used: 5% Lidocaine Gel Depth: Down to and including healthy tissue, in the subcutaneous layer, to muscle and - (bone is palpable but not exposed.) Percentage of wound debrided: 100 Instrument Used: 5mm curette Tissue Removed: subcutaneous tissue and muscle. Severity: Fat Layer Exposed (muscle is exposed. bone is palpable but not exposed.) Amount of bleeding with debridement: Mild Bleeding Controlled with: Pressure and Compression and gauze Patient tolerated procedure: Patient tolerated procedure well Post-Debridement Measurements and Additional Note: Post-Debridement Measurements/Treatment - Nurse 1 - General Ulcer Assessment Start: 09/03/23 14:28 Freq: Status: Active Protocol: DONNIE Activity Type Activity Date Activity User E-sign Co-sign Detail Recorded Client Recorded Date Recorded By Document 09/03/23 14:28 [facility] Desktop 09/03/23 14:35 [facility] Document 09/17/23 13:06 [facility] Desktop 09/17/23 13:14 [facility] Document 10/01/23 13:06 [employer] 10/01/23 13:11 [place] 09/03/23 09/17/23 10/01/23 14:28 13:06 13:06 - Today's Visit Information Type of service Follow-up Visit Follow-up Visit Follow-up Visit (Physician/FAMILY INTERVENTION SPECIALIST (Physician/FAMILY INTERVENTION SPECIALIST (Physician/FAMILY INTERVENTION SPECIALIST ) ) ) Arrival Mode Ambulatory Ambulatory Ambulatory Transfer Assistance None None None Accompanied by Patient Identification Verified (Name & Yes Yes Yes ) Patient Requires Transmission-Based No No No Precautions Vital Signs Temperature (97.8 F-99.1 F) 97.6 F L 97.5 F L 98.6 F Temperature Source Temporal Temporal Temporal Pulse Rate (60-100) 72 75 65 Pulse Location Monitor Monitor Monitor Respiratory Rate (12-18) 16 16 16 Respiratory rate source Observation Observation Observation Oxygen Delivery Method Room Air Room Air Room Air Blood Pressure (90/60-120/80) 172/63 H 162/80 H 137/65 H Blood Pressure Mean (mm Hg) 99 107 89 Source Monitor Monitor Monitor Position Sitting Sitting Sitting Blood Pressure Location Right Arm Left Arm Right Arm History Since Last Visit- (Skip if this is Patient's initial visit) Have you changed medications since your No No No last visit? Any new allergies or adverse reactions No No No Had a fall/change in ADL's that may No No No increase risk of falls Signs or symptoms of abuse and/or No No No neglect since last visit Have you been in the hospital since your No No No last visit? Has dressing in place as prescribed Yes Yes Yes Has compression in place as prescribed N/A N/A N/A Has offloadiing in place as prescribed N/A N/A N/A Experienced any changes in pain level or No No No management Left Footwear Regular Shoe Regular Shoe Regular Shoe Right Footwear Regular Shoe Regular Shoe Regular Shoe Pain Scale: 0-10 Numeric Is Patient Pain Free? Yes Yes Yes WC - Nurse 1 - General Ulcer Measurement Start: 09/03/23 14:28 Freq: Status: Active Protocol: Activity Type Activity Date Activity User E-sign Co-sign Detail Recorded Client Recorded Date Recorded By Document 09/03/23 14:28 [facility] Desktop 09/03/23 14:35 [facility] Document 09/17/23 13:06 [facility] Desktop 09/17/23 13:14 [facility] Document 10/01/23 13:06 [facility] Desktop 10/01/23 13:11 [place] 09/03/23 09/17/23 10/01/23 14:28 13:06 13:06 Wound Center Nurse 1 1-Sacrum -Combined with other wound No No No -Current Size (cm) - Length 1.8 1.7 1.6 -Current Size (cm) - Width 1.6 1.1 1.2 -Current Size (cm) - Depth 1.6 2.1 1.5 -Total Square Cm 2.88 1.87 1.92 -Date of Last Picture (Recall this 09/03/23 09/17/23 10/01/23 field) -Photo Taken Yes Yes Yes -Epithelialization None Present None Present -Tunneling No -Undermining/Tunneling Yes -Undermining/Tunneling Starts (O'clock 11 ) -Undermining/Tunneling Ends (O'clock) 6 -Maximum Distance (cm) 3.3 -Circular Undermining No -Exudate Amt Large Medium Large -Exudate Type Serosanguineous Serosanguineous Serosanguineous -Wound Margin Distinct, Distinct, Distinct, Outline Outline Outline Attached Attached Attached -Granulation Amt Large (67-100%) Large (67-100%) Large (67-100%) -Granulation Quality [employer] Red Red -Slough/Fibrin Yes Yes Yes -Necrosis Amt Small (1-33%) Small (1-33%) Small (1-33%) -Necrotic Tissue Type Adherent Slough Adherent Slough Adherent Slough -Texture (Mickie-wound Skin Appearance) Assessed, Assessed, Assessed, Scarring Scarring Scarring -Moisture (Mickie-wound Skin Appearance) Assessed Assessed Assessed, Maceration -Color (Mickie-wound Skin Appearance) Assessed Assessed Assessed, Erythema -Temperature (Mickie-wound Skin No Abnormality No Abnormality No Abnormality Appearance) (Pt Warm) (Pt Warm) (Pt Warm) -Tenderness on Palpation (Mickie-wound No No No Skin Appearance) -Ulcer Cleansing Rinsed/ Rinsed/ Rinsed/ Irrigated with Irrigated with Irrigated with Saline Saline Saline -Foul Odor after Cleansing No No No -Anesthetic Used 5% Lidocaine 5% Lidocaine 5% Lidocaine Gel Gel Gel WC - Nurse 2 - General Ulcer CM Notes Start: 09/03/23 14:28 Freq: Status: Active Protocol: Activity Type Activity Date Activity User E-sign Co-sign Detail Recorded Client Recorded Date Recorded By Document 09/03/23 14:49 MW Desktop 09/03/23 14:53 MW Document 09/17/23 13:38 MW Desktop 09/17/23 13:42 MW Document 10/01/23 13:33 MW Desktop 10/01/23 13:44 MW 09/03/23 09/17/23 10/01/23 14:49 13:38 13:33 Wound Center Nurse 2 1-Sacrum -Time 14:49 13:41 13:33 -Correct Patient Yes Yes Yes -Correct Side, Site, Position Yes Yes Yes -Correct Procedure Yes Yes Yes -Procedure Performed Yes Yes Yes -Type of Procedure Debridement Debridement Debridement -Clinical Debridement Muscle / Fascia Muscle / Fascia Muscle / Fascia -Tissue Removed Muscle,Fascia Muscle,Fascia Muscle,Fascia -Post Debridement (cm) - Length 1.7 1.8 1.6 -Post Debridement (cm) - Width 1.7 1.5 1.4 -Post Debridement (cm) - Depth 2.3 1.1 1.3 -Total Square (Post) (cm) 2.89 2.70 2.24 -Area of Debridement (cm) - Length 1.7 1.8 1.6 -Area of Debridement (cm) - Width 1.7 1.5 1.4 -Total Square (Area) (cm) 2.89 2.70 2.24 -Tunneling No No No -Undermining/Tunneling No Yes Yes -Undermining/Tunneling Starts (O'clock 1 1 ) -Undermining/Tunneling Ends (O'clock) 3 3 -Maximum Distance (cm) 1.4 2.0 -Circular Undermining No No No -Wound/Ulcer Outcome Not Healed Not Healed Not Healed -Ulcer Cleansing Rinsed/ Rinsed/ Irrigated with Irrigated with Saline Saline -Foul Odor after Cleansing No No -Bioengineered Tissue No No -Bleeding Controlled with Pressure Pressure Pressure -Treatment Response Procedure Procedure Tolerated Well Tolerated Well -Offloading No No -Debridement - Muscle / Fascia, 1st Yes Yes Yes 20sq cm Pain Scale: 0-10 Numeric Is Patient Pain Free? Yes Yes Yes WC - Nurse 3 - General Ulcer D/C NN Start: 09/03/23 14:28 Freq: Status: Active Protocol: Activity Type Activity Date Activity User E-sign Co-sign Detail Recorded Client Recorded Date Recorded By Document 09/03/23 14:55 MW Desktop 09/03/23 14:57 MW Document 09/17/23 13:45 MW Desktop 09/17/23 13:45 MW Document 10/01/23 13:54 DL Desktop 10/01/23 13:55 DL 09/03/23 09/17/23 10/01/23 14:55 13:45 13:54 Wound Care Center Nurse 3 1-Sacrum -Ulcer Cleansing Rinsed/ Rinsed/ Rinsed/ Irrigated with Irrigated with Irrigated with Saline Saline Saline -Foul Odor after Cleansing No No No -Negative Pressure Wound Therapy N/A N/A -Primary Dressing Applied Mepilex Border Hysept ($), Mepilex Border Mepilex Border -Other Dressing Dakins 0.25% dakins moistened gauze -Mepilex Border 1 1 1 Treatment Response Procedure Procedure Procedure Tolerated Well Tolerated Well Tolerated Well Pain Scale: 0-10 Numeric Is Patient Pain Free? Yes Yes Yes Teaching: Wound Center Dressing Your Wound -Person Taught Patient,Family Patient -Teaching Method Discussion Discussion, Demonstration -Response to teaching Verbalize Verbalize understanding understanding WC - Visit Discharge Discharge Condition Stable Stable Stable Ambulatory Status Ambulatory Ambulatory Ambulatory Transportation Private Auto Private Auto Private Auto Accompanied by Medication Reconcilliation completed & No No provided to patient/care provider Clinical Summary of Care Provided Yes Yes Facility Type Home Health Orders Sent Yes Assessment/Plan Assessment/Plan (1) Pressure ulcer of sacral region, stage 4: CODE(S): L89.154 - Pressure ulcer of sacral region, stage 4 (2) Personal history of COVID-19: CODE(S): Z86.16 - Personal history of COVID-19 (3) History of acute respiratory failure: CODE(S): Z87.09 - Personal history of other diseases of the respiratory system (4) Stroke/cerebrovascular accident: CODE(S): I63.9 - Cerebral infarction, unspecified PLAN: Plan Continue Dakin's 0.25 strength moistened gauze covered by ABD daily. Patient is ambulatory. Continue to avoid sitting/lying on this area for any length of time. Prealbumin from 06/20/23 was 26.6. Encourage nutritional supplementation with protein to help the healing process. Operative cultures (soft tissue and bone) from 06/19/23 were negative. Pathology from 06/19/23 was negative for osteomyelitis. Wound culture obtained 08/12/23 was positive for Corynebacterium striatum and Anaerobic cocci. He was treated with Flagyl. Follow up 2 weeks. With regard to eventual closure of this sacral pressure sore, I don't want to use a muscle flap. Patient can ambulate and a muscle flap would be problematic with some gait disturbances. He would have to be setup with Physical Therapy to help improve the gait disturbance. Instead I could use a fasciocutaneous flap to improve the blood supply and there is no detachment of muscle with this type of flap. Because of its small size, a local transposition flap is also an option. Postoperatively he would need to be on complete bedrest for up to 4-6 weeks. A local transposition skin flap would need less bedrest than a fasciocutaneous flap. Before that surgery, I would obtain a wound culture. A positive culture would necessitate antibiotic therapy. Would also check a Prealbumin to maximize nutrition. Encourage nutritional supplementation.
== END 2023-10-01 23:59 | disposition home or self-care (01) ==
LOC: WC 13:00
PROVIDERS: PCP Family Medicine; Referring Provider Surgery; Visit Provider Surgery
DX: L89.154 Pressure ulcer of sacral region, stage 4 (principal); Z86.16 Personal history of COVID-19; Z87.09 Personal history of other diseases of the respiratory system; Z86.73 Personal history of transient ischemic attack (TIA), and cerebral infarction without residual deficits
CPT/HCPCS: 11043

== ENCOUNTER 2023-10-29 13:00 | Outpatient (RCR) | payer MEDICARE, BC, SELFPAY ==
[2023-10-02 00:24] VITALS: BP 137/65; PULSE 65; RESP 16; TEMP 37
[2023-10-13 15:16] VITALS: BP 160/60; PULSE 75; RESP 16; TEMP 36.2
--- NOTE | 2023-10-13 15:40 | PN.PCM_ITS ---
History of Present Illness Date of Service: 10/13/23 Chief Complaint: Stage IV sacral ulcer History of Wound: Patient presents to wound care center today for evaluation and management of sacral pressure ulcer. This wound has been present for 1.5 years. It started when patient was hospitalized, on ventilator in ICU with COVID. It has significantly improved in size since then but has been stagnant in progress for some time now. He had been receiving wound care at the [place] wound center. He reports that it has never been cultured, he has never had imaging, and he has been following up in 2-month intervals with no debridement to between. His wound care has consisted Samaria and of otherwise leaving the wound open to air/covered with a thin layer of gauze. He has been instructed to keep it dry so he has been covering and taping over the area during showers. He is at this point frustrated with the lack of recent progress and decided to establish care here instead at the recommendation of a family friend. Surgery 06/19/23 - Excision sacral pressure sore, Stage IV, with partial o stectomy for osteomyelitis. Wound Care - Dakin's. Operative culture soft tissue - negative. Operative culture bone - negative. Pathology - Reactive changes. Mild chronic inflammation and minimal acute inflammation. Prealbumin from 06/20/23 was 26.6. Encourage nutritional supplementation with protein to help the healing process. CT Pelvis was done on 03/18/23. It showed no sclerotic or destructive changes to suggest osteomyelitis. Recent wound culture on 08/12/23 was positive for Anaerobic cocci and Corynebacterium striatum. He was treated with Flagyl. Today he denies fever. His appetite is good. Progress of Wound: Improved. Objective Data Objective Data Vital Signs: Vital Signs Temp Pulse Resp BP O2 Del Method 97.1 F L 75 16 160/60 H Room Air 10/13/23 15:16 10/13/23 15:16 10/13/23 15:16 10/13/23 15:16 10/13/23 15:16 Oxygen Delivery Method Room Air Prealbumin from 06/20/23 was 26.6.? Encourage nutritional supplementation with protein to help the healing process. Lab / Micro Data Attestation: I reviewed the patient's lab results. Charges/Coding Procedures Integumentary 111xxx-113xx: 25246 Roxi musc/fascia 20 sq cm/< (ICD-10 - L89.154, Z86.16, Z87.09, I63.9) Debridement Note Debridement Note Wound debrided: #1 sacral ulcer Laterality: Not Applicable Wound Grade/Stage: IV. Type of Debridement: Excisional debridement Anesthesia Used: 5% Lidocaine Gel Depth: Down to and including healthy tissue, in the subcutaneous layer, to muscle and - (bone is palpable but not exposed.) Percentage of wound debrided: 100 Instrument Used: 5mm curette Tissue Removed: subcutaneous tissue and muscle. Severity: Fat Layer Exposed (muscle is exposed. bone is palpable but not exposed.) Amount of bleeding with debridement: Mild Bleeding Controlled with: Pressure and Compression and gauze Patient tolerated procedure: Patient tolerated procedure well Post-Debridement Measurements and Additional Note: Post-Debridement Measurements/Treatment - Nurse 1 - General Ulcer Assessment Start: 10/13/23 15:16 Freq: Status: Active Protocol: [email or web address] Activity Type Activity Date Activity User E-sign Co-sign Detail Recorded Client Recorded Date Recorded By Document 10/13/23 15:16 [facility] Desktop 10/13/23 15:21 [facility] 10/13/23 15:16 - Today's Visit Information Type of service Follow-up Visit (Physician/SEARCH ANALYST ) Arrival Mode Ambulatory Transfer Assistance None Accompanied by Patient Identification Verified (Name & Yes ) Patient Requires Transmission-Based No Precautions Vital Signs Temperature (97.8 F-99.1 F) 97.1 F L Temperature Source Temporal Pulse Rate (60-100) 75 Pulse Location Monitor Respiratory Rate (12-18) 16 Respiratory rate source Observation Oxygen Delivery Method Room Air Blood Pressure (90/60-120/80) 160/60 H Blood Pressure Mean (mm Hg) 93 Source Monitor Position Sitting Blood Pressure Location Right Arm History Since Last Visit- (Skip if this is Patient's initial visit) Have you changed medications since your No last visit? Any new allergies or adverse reactions No Had a fall/change in ADL's that may No increase risk of falls Signs or symptoms of abuse and/or No neglect since last visit Have you been in the hospital since your No last visit? Has dressing in place as prescribed Yes Has compression in place as prescribed N/A Has offloadiing in place as prescribed N/A Experienced any changes in pain level or No management Left Footwear Regular Shoe Right Footwear Regular Shoe Pain Scale: 0-10 Numeric Is Patient Pain Free? Yes - Nurse 1 - General Ulcer Measurement Start: 10/13/23 15:16 Freq: Status: Active Protocol: Activity Type Activity Date Activity User E-sign Co-sign Detail Recorded Client Recorded Date Recorded By Document 10/13/23 15:16 [facility] Desktop 10/13/23 15:21 [facility] 10/13/23 15:16 Wound Center Nurse 1 1-Sacrum -Combined with other wound No -Current Size (cm) - Length 1 -Current Size (cm) - Width 1 -Current Size (cm) - Depth 2 -Total Square Cm 1 -Date of Last Picture (Recall this 10/13/23 field) -Photo Taken Yes -Epithelialization None Present -Tunneling No -Undermining/Tunneling Yes -Undermining/Tunneling Starts (O'clock 8 ) -Undermining/Tunneling Ends (O'clock) 3 -Maximum Distance (cm) 1.8 -Circular Undermining No -Exudate Amt Large -Exudate Type Serosanguineous -Granulation Amt Large (67-100%) -Granulation Quality Red -Slough/Fibrin Yes -Necrosis Amt Small (1-33%) -Necrotic Tissue Type Adherent Slough -Texture (Mickie-wound Skin Appearance) Assessed, Scarring -Moisture (Mickie-wound Skin Appearance) Assessed, Maceration -Color (Mickie-wound Skin Appearance) Assessed -Temperature (Mickie-wound Skin No Abnormality Appearance) (Pt Warm) -Tenderness on Palpation (Mickie-wound No Skin Appearance) -Ulcer Cleansing Rinsed/ Irrigated with Saline -Foul Odor after Cleansing No -Anesthetic Used 5% Lidocaine Gel WC - Nurse 2 - General Ulcer CM Notes Start: 10/13/23 15:16 Freq: Status: Active Protocol: Activity Type Activity Date Activity User E-sign Co-sign Detail Recorded Client Recorded Date Recorded By Document 10/13/23 15:29 Laptop 10/13/23 15:34 10/13/23 15:29 Wound Center Nurse 2 -Time 15:29 -Correct Patient Yes -Correct Side, Site, Position Yes -Correct Procedure Yes -Procedure Performed Yes -Type of Procedure Debridement -Clinical Debridement Muscle / Fascia -Tissue Removed Muscle -Post Debridement (cm) - Length 1.5 -Post Debridement (cm) - Width 1.0 -Post Debridement (cm) - Depth 1.5 -Total Square (Post) (cm) 1.50 -Area of Debridement (cm) - Length 1.5 -Area of Debridement (cm) - Width 1 -Total Square (Area) (cm) 1.5 -Tunneling No -Undermining/Tunneling Yes -Undermining/Tunneling Starts (O'clock 1 ) -Maximum Distance (cm) 1.0 -Undermining/Tunneling Starts #2 (O' 11 clock) -Maximum Distance #2 (cm) 0.5 -Circular Undermining No -Wound/Ulcer Outcome Not Healed -Ulcer Cleansing Rinsed/ Irrigated with Saline -Foul Odor after Cleansing No -Bioengineered Tissue No -Bleeding Controlled with Pressure -Treatment Response Procedure Tolerated Well -Offloading No -Debridement - Muscle / Fascia, 1st Yes 20sq cm Pain Scale: 0-10 Numeric Is Patient Pain Free? Yes Assessment/Plan Assessment/Plan (1) Pressure ulcer of sacral region, stage 4: CODE(S): L89.154 - Pressure ulcer of sacral region, stage 4 (2) Personal history of COVID-19: CODE(S): Z86.16 - Personal history of COVID-19 (3) History of acute respiratory failure: CODE(S): Z87.09 - Personal history of other diseases of the respiratory system (4) Stroke/cerebrovascular accident: CODE(S): I63.9 - Cerebral infarction, unspecified PLAN: Plan Continue Dakin's 0.25 strength moistened gauze covered by ABD daily. Patient is ambulatory. Continue to avoid sitting/lying on this area for any length of time. Prealbumin from 06/20/23 was 26.6. Encourage nutritional supplementation with protein to help the healing process. Operative cultures (soft tissue and bone) from 06/19/23 were negative. Pathology from 06/19/23 was negative for osteomyelitis. Wound culture obtained 08/12/23 was positive for Corynebacterium striatum and Anaerobic cocci. He was treated with Flagyl. With regard to eventual closure of this sacral pressure sore, I don't want to use a muscle flap. Patient can ambulate and a muscle flap would be problematic with some gait disturbances. He would have to be setup with Physical Therapy to help improve the gait disturbance. Instead I could use a fasciocutaneous flap to improve the blood supply and there is no detachment of muscle with this type of flap. Because of its small size, a local transposition flap is also an option. Postoperatively he would need to be on complete bedrest for up to 4-6 weeks. A local transposition skin flap would need less bedrest than a fasciocutaneous flap. Before that surgery, I would obtain a wound culture. A positive culture would necessitate antibiotic therapy. Would also check a Prealbumin to maximize nutrition. Encourage nutritional supplementation. Patient is hesitant about the surgery because he doesn't like the idea of being on bedrest for 4-6 weeks. Follow up 2 weeks.
[2023-10-29 12:58] VITALS: BP 159/68; PULSE 65; RESP 16; TEMP 37.1
--- NOTE | 2023-10-29 15:06 | PCM.WC.PN ---
History of Present Illness Date of Service: 10/29/23 Chief Complaint: Stage IV sacral ulcer History of Wound: Patient presents to wound care center today for evaluation and management of sacral pressure ulcer. This wound has been present for 1.5 years. It started when patient was hospitalized, on ventilator in ICU with COVID. It has significantly improved in size since then but has been stagnant in progress for some time now. He had been receiving wound care at the [place] wound center. He reports that it has never been cultured, he has never had imaging, and he has been following up in 2-month intervals with no debridement to between. His wound care has consisted Samaria and of otherwise leaving the wound open to air/covered with a thin layer of gauze. He has been instructed to keep it dry so he has been covering and taping over the area during showers. He is at this point frustrated with the lack of recent progress and decided to establish care here instead at the recommendation of a family friend. Surgery 06/19/23 - Excision sacral pressure sore, Stage IV, with partial ostectomy for osteomyelitis. Wound Care - Dakin's. Operative culture soft tissue - negative. Operative culture bone - negative. Pathology - Reactive changes. Mild chronic inflammation and minimal acute inflammation. Prealbumin from 06/20/23 was 26.6. Encourage nutritional supplementation with protein to help the healing process. CT Pelvis was done on 03/18/23. It showed no sclerotic or destructive changes to suggest osteomyelitis. Recent wound culture on 08/12/23 was positive for Anaerobic cocci and Corynebacterium striatum. He was treated with Flagyl. Today he denies fever. His appetite is good. Progress of Wound: Improved. Objective Data Objective Data Vital Signs: Vital Signs Temp Pulse Resp BP O2 Del Method 98.7 F 65 16 159/68 H Room Air 10/29/23 12:58 10/29/23 12:58 10/29/23 12:58 10/29/23 12:58 10/29/23 12:58 Oxygen Delivery Method Room Air Prealbumin from 06/20/23 was 26.6.? Encourage nutritional supplementation with protein to help the healing process. Lab / Micro Data Attestation: I reviewed the patient's lab results. Charges/Coding Procedures Integumentary 111xxx-113xx: 10436 Roxi musc/fascia 20 sq cm/< (ICD-10 - L89.154, Z86.16, Z87.09, I63.9) Debridement Note Debridement Note Wound debrided: #1 sacral ulcer Laterality: Not Applicable Wound Grade/Stage: IV. Type of Debridement: Excisional debridement Anesthesia Used: 5% Lidocaine Gel Depth: Down to and including healthy tissue, in the subcutaneous layer, to muscle and - (bone is palpable but not exposed.) Percentage of wound debrided: 100 Instrument Used: 3mm curette Tissue Removed: subcutaneous tissue and muscle. Severity: Fat Layer Exposed (muscle is exposed. bone is palpable but not exposed.) Amount of bleeding with debridement: Mild Bleeding Controlled with: Pressure and Compression and gauze Patient tolerated procedure: Patient tolerated procedure well Post-Debridement Measurements and Additional Note: Post-Debridement Measurements/Treatment - Nurse 1 - General Ulcer Assessment Start: 10/13/23 15:16 Freq: Status: Active Protocol: [employer] Activity Type Activity Date Activity User E-sign Co-sign Detail Recorded Client Recorded Date Recorded By Document 10/13/23 15:16 [employer] Desktop 10/13/23 15:21 [facility] Document 10/29/23 12:58 [employer] Desktop 10/29/23 13:07 [facility] 10/13/23 10/29/23 15:16 12:58 - Today's Visit Information Type of service Follow-up Visit Follow-up Visit (Physician/CASINO GAMING WORKER (Physician/CASINO GAMING WORKER ) ) Arrival Mode Ambulatory Ambulatory Transfer Assistance None None Accompanied by Patient Identification Verified (Name & Yes Yes ) Patient Requires Transmission-Based No No Precautions Vital Signs Temperature (97.8 F-99.1 F) 97.1 F L 98.7 F Temperature Source Temporal Temporal Pulse Rate (60-100) 75 65 Pulse Location Monitor Monitor Respiratory Rate (12-18) 16 16 Respiratory rate source Observation Observation Oxygen Delivery Method Room Air Room Air Blood Pressure (90/60-120/80) 160/60 H 159/68 H Blood Pressure Mean (mm Hg) 93 98 Source Monitor Monitor Position Sitting Sitting Blood Pressure Location Right Arm Left Arm History Since Last Visit- (Skip if this is Patient's initial visit) Have you changed medications since your No No last visit? Any new allergies or adverse reactions No No Had a fall/change in ADL's that may No No increase risk of falls Signs or symptoms of abuse and/or No No neglect since last visit Have you been in the hospital since your No No last visit? Has dressing in place as prescribed Yes Yes Has compression in place as prescribed N/A N/A Has offloadiing in place as prescribed N/A N/A Experienced any changes in pain level or No No management Left Footwear Regular Shoe Regular Shoe Right Footwear Regular Shoe Regular Shoe Pain Scale: 0-10 Numeric Is Patient Pain Free? Yes Yes WC - Nurse 1 - General Ulcer Measurement Start: 10/13/23 15:16 Freq: Status: Active Protocol: Activity Type Activity Date Activity User E-sign Co-sign Detail Recorded Client Recorded Date Recorded By Document 10/13/23 15:16 [employer] Desktop 10/13/23 15:21 [facility] Document 10/29/23 12:58 [facility] Desktop 10/29/23 13:07 [facility] 10/13/23 10/29/23 15:16 12:58 Wound Center Nurse 1 1-Sacrum -Combined with other wound No No -Current Size (cm) - Length 1 0.6 -Current Size (cm) - Width 1 1.4 -Current Size (cm) - Depth 2 1.5 -Total Square Cm 1 0.84 -Date of Last Picture (Recall this 10/13/23 10/29/23 field) -Photo Taken Yes Yes -Epithelialization None Present Small 1-33% -Tunneling No -Undermining/Tunneling Yes -Undermining/Tunneling Starts (O'clock 8 ) -Undermining/Tunneling Ends (O'clock) 3 -Maximum Distance (cm) 1.8 -Circular Undermining No -Exudate Amt Large Medium -Exudate Type Serosanguineous Serosanguineous -Wound Margin Distinct, Outline Attached -Granulation Amt Large (67-100%) Large (67-100%) -Granulation Quality Red Red -Slough/Fibrin Yes No -Necrosis Amt Small (1-33%) None Present (0 %) -Necrotic Tissue Type Adherent Slough -Texture (Mickie-wound Skin Appearance) Assessed, Assessed, Scarring Scarring -Moisture (Mickie-wound Skin Appearance) Assessed, Assessed Maceration -Color (Mickie-wound Skin Appearance) Assessed Assessed -Temperature (Mickie-wound Skin No Abnormality No Abnormality Appearance) (Pt Warm) (Pt Warm) -Tenderness on Palpation (Mickie-wound No No Skin Appearance) -Ulcer Cleansing Rinsed/ Rinsed/ Irrigated with Irrigated with Saline Saline -Foul Odor after Cleansing No No -Anesthetic Used 5% Lidocaine 5% Lidocaine Gel Gel KARIE - Nurse 2 - General Ulcer CM Notes Start: 10/13/23 15:16 Freq: Status: Active Protocol: Activity Type Activity Date Activity User E-sign Co-sign Detail Recorded Client Recorded Date Recorded By Document 10/13/23 15:29 JF Laptop 10/13/23 15:34 JF Document 10/29/23 13:35 MW Desktop 10/29/23 13:43 MW 10/13/23 10/29/23 15:29 13:35 Wound Center Nurse 2 1-Sacrum -Time 15:29 13:36 -Correct Patient Yes Yes -Correct Side, Site, Position Yes Yes -Correct Procedure Yes Yes -Procedure Performed Yes Yes -Type of Procedure Debridement Debridement -Clinical Debridement Muscle / Fascia Muscle / Fascia -Tissue Removed Muscle Muscle,Fascia -Post Debridement (cm) - Length 1.5 0.7 -Post Debridement (cm) - Width 1.0 1.5 -Post Debridement (cm) - Depth 1.5 1.1 -Total Square (Post) (cm) 1.50 1.05 -Area of Debridement (cm) - Length 1.5 0.7 -Area of Debridement (cm) - Width 1 1.5 -Total Square (Area) (cm) 1.5 1.05 -Tunneling No No -Undermining/Tunneling Yes No -Undermining/Tunneling Starts (O'clock 1 ) -Maximum Distance (cm) 1.0 -Undermining/Tunneling Starts #2 (O' 11 clock) -Maximum Distance #2 (cm) 0.5 -Circular Undermining No No -Wound/Ulcer Outcome Not Healed Not Healed -Ulcer Cleansing Rinsed/ Rinsed/ Irrigated with Irrigated with Saline Saline -Foul Odor after Cleansing No No -Bioengineered Tissue No No -Bleeding Controlled with Pressure Pressure -Treatment Response Procedure Procedure Tolerated Well Tolerated Well -Offloading No No -Debridement - Muscle / Fascia, 1st Yes Yes 20sq cm Pain Scale: 0-10 Numeric Is Patient Pain Free? Yes Yes KARIE - Nurse 3 - General Ulcer D/C NN Start: 10/13/23 15:16 Freq: Status: Active Protocol: Activity Type Activity Date Activity User E-sign Co-sign Detail Recorded Client Recorded Date Recorded By Document 10/13/23 15:40 KW Desktop 10/13/23 15:41 KW Document 10/29/23 13:44 [facility] Desktop 10/29/23 13:45 MW 10/13/23 10/29/23 15:40 13:44 Wound Care Center Nurse 3 1-Sacrum -Ulcer Cleansing Rinsed/ Irrigated with Saline -Foul Odor after Cleansing No -Negative Pressure Wound Therapy N/A -Primary Dressing Applied Mepilex Border Mepilex Border -Primary Dressing Covered/Secured with Dry Gauze, Secured with Tape -Mepilex Border 1 1 Treatment Response Procedure Tolerated Well Pain Scale: 0-10 Numeric Is Patient Pain Free? Yes Yes Teaching: Wound Center Dressing Your Wound -Person Taught Patient,Family -Teaching Method Discussion, Demonstration -Response to teaching Verbalize understanding WC - Visit Discharge Discharge Condition Stable Stable Ambulatory Status Ambulatory Ambulatory Transportation Private Auto Private Auto Accompanied by Medication Reconcilliation completed & No No provided to patient/care provider Clinical Summary of Care Provided Yes Yes Assessment/Plan Assessment/Plan (1) Pressure ulcer of sacral region, stage 4: CODE(S): L89.154 - Pressure ulcer of sacral region, stage 4 (2) Personal history of COVID-19: CODE(S): Z86.16 - Personal history of COVID-19 (3) History of acute respiratory failure: CODE(S): Z87.09 - Personal history of other diseases of the respiratory system (4) Stroke/cerebrovascular accident: CODE(S): I63.9 - Cerebral infarction, unspecified PLAN: Plan Continue Dakin's 0.25 strength moistened gauze covered by ABD daily. Patient is ambulatory. When her Dakin's is finished, will start Silver dressings daily. Continue to avoid sitting/lying on this area for any length of time. Prealbumin from 06/20/23 was 26.6. Encourage nutritional supplementation with protein to help the healing process. Operative cultures (soft tissue and bone) from 06/19/23 were negative. Pathology from 06/19/23 was negative for osteomyelitis. Wound culture obtained 08/12/23 was positive for Corynebacterium striatum and Anaerobic cocci. He was treated with Flagyl. With regard to eventual closure of this sacral pressure sore, I don't want to use a muscle flap. Patient can ambulate and a muscle flap would be problematic with some gait disturbances. He would have to be setup with Physical Therapy to help improve the gait disturbance. Instead I could use a fasciocutaneous flap to improve the blood supply and there is no detachment of muscle with this type of flap. Because of its small size, a local transposition flap is also an option. Postoperatively he would need to be on complete bedrest for up to 4-6 weeks. A local transposition skin flap would need less bedrest than a fasciocutaneous flap. Before that surgery, I would obtain a wound culture. A positive culture would necessitate antibiotic therapy. Would also check a Prealbumin to maximize nutrition. Encourage nutritional supplementation. Patient is hesitant about the surgery because he doesn't like the idea of being on bedrest for 4-6 weeks. Follow up 2 weeks.
== END 2023-10-30 23:59 | disposition home or self-care (01) ==
LOC: WC 13:00
PROVIDERS: PCP Family Medicine; Referring Provider Surgery; Visit Provider Surgery
DX: L89.154 Pressure ulcer of sacral region, stage 4 (principal); Z86.16 Personal history of COVID-19; Z86.73 Personal history of transient ischemic attack (TIA), and cerebral infarction without residual deficits
CPT/HCPCS: 11043

== ENCOUNTER 2023-11-26 13:00 | Outpatient (RCR) | payer MEDICARE, BC, SELFPAY ==
[2023-10-31 00:26] VITALS: BP 159/68; PULSE 65; RESP 16; TEMP 37.1
[2023-11-12 13:11] VITALS: BP 150/77; PULSE 72; RESP 18; TEMP 37.1
--- NOTE | 2023-11-12 17:02 | PCM.WC.PN ---
History of Present Illness Date of Service: 11/12/23 Chief Complaint: Stage IV sacral ulcer History of Wound: Patient presents to wound care center today for evaluation and management of sacral pressure ulcer. This wound has been present for 1.5 years. It started when patient was hospitalized, on ventilator in ICU with COVID. It has significantly improved in size since then but has been stagnant in progress for some time now. He had been receiving wound care at the [place] wound center. He reports that it has never been cultured, he has never had imaging, and he has been following up in 2-month intervals with no debridement to between. His wound care has consisted Samaria and of otherwise leaving the wound open to air/covered with a thin layer of gauze. He has been instructed to keep it dry so he has been covering and taping over the area during showers. He is at this point frustrated with the lack of recent progress and decided to establish care here instead at the recommendation of a family friend. Surgery 06/19/23 - Excision sacral pressure sore, Stage IV, with partial ostectomy for osteomyelitis. Wound Care - Dakin's. Operative culture soft tissue - negative. Operative culture bone - negative. Pathology - Reactive changes. Mild chronic inflammation and minimal acute inflammation. Prealbumin from 06/20/23 was 26.6. Encourage nutritional supplementation with protein to help the healing process. CT Pelvis was done on 03/18/23. It showed no sclerotic or destructive changes to suggest osteomyelitis. Recent wound culture on 08/12/23 was positive for Anaerobic cocci and Corynebacterium striatum. He was treated with Flagyl. Today he denies fever. His appetite is good. Progress of Wound: Slightly improved. Objective Data Objective Data Vital Signs: Vital Signs Temp Pulse Resp BP 98.7 F 72 18 150/77 H 11/12/23 13:11 11/12/23 13:11 11/12/23 13:11 11/12/23 13:11 Prealbumin from 06/20/23 was 26.6.? Encourage nutritional supplementation with protein to help the healing process. Lab / Micro Data Attestation: I reviewed the patient's lab results. Charges/Coding Procedures Integumentary 111xxx-113xx: 57863 Roxi musc/fascia 20 sq cm/< (ICD-10 - L89.154, Z86.16, Z87.09, I63.9) Debridement Note Debridement Note Wound debrided: #1 sacral ulcer Laterality: Not Applicable Wound Grade/Stage: IV. Type of Debridement: Excisional debridement Anesthesia Used: 5% Lidocaine Gel Depth: Down to and including healthy tissue, in the subcutaneous layer, to muscle and - (bone is palpable but not exposed.) Percentage of wound debrided: 100 Instrument Used: 3mm curette Tissue Removed: subcutaneous tissue and muscle. Severity: Fat Layer Exposed (muscle is exposed. bone is palpable but not exposed.) Amount of bleeding with debridement: Mild Bleeding Controlled with: Pressure and Compression and gauze Patient tolerated procedure: Patient tolerated procedure well Post-Debridement Measurements and Additional Note: Post-Debridement Measurements/Treatment KARIE - Nurse 1 - General Ulcer Assessment Start: 11/12/23 13:11 Freq: Status: Active Protocol: DONNIE Activity Type Activity Date Activity User E-sign Co-sign Detail Recorded Client Recorded Date Recorded By Document 11/12/23 13:11 Desktop 11/12/23 13:13 RB 11/12/23 13:11 WC - Today's Visit Information Type of service Follow-up Visit (Physician/DUB ROOM ENGINEER ) Arrival Mode Ambulatory Transfer Assistance None Patient Identification Verified (Name & Yes ) Patient Requires Transmission-Based No Precautions Vital Signs Temperature (97.8 F-99.1 F) 98.7 F Temperature Source Temporal Pulse Rate (60-100) 72 Pulse Location Monitor Respiratory Rate (12-18) 18 Respiratory rate source Observation Blood Pressure (90/60-120/80) 150/77 H Blood Pressure Mean (mm Hg) 101 Source Monitor Position Semi-Fowlers Blood Pressure Location Left Arm History Since Last Visit- (Skip if this is Patient's initial visit) Have you changed medications since your No last visit? Any new allergies or adverse reactions No Had a fall/change in ADL's that may No increase risk of falls Signs or symptoms of abuse and/or No neglect since last visit Have you been in the hospital since your No last visit? Has dressing in place as prescribed Yes Has compression in place as prescribed No Has offloadiing in place as prescribed No Experienced any changes in pain level or No management Pain Scale: 0-10 Numeric Is Patient Pain Free? Yes - Nurse 1 - General Ulcer Measurement Start: 11/12/23 13:11 Freq: Status: Active Protocol: Activity Type Activity Date Activity User E-sign Co-sign Detail Recorded Client Recorded Date Recorded By Document 11/12/23 13:11 RB Desktop 11/12/23 13:13 RB 11/12/23 13:11 Wound Center Nurse 1 1-Sacrum -Combined with other wound No -Current Size (cm) - Length 1.1 -Current Size (cm) - Width 1.2 -Current Size (cm) - Depth 1.2 -Total Square Cm 1.32 -Tunneling No -Undermining/Tunneling Yes -Undermining/Tunneling Starts (O'clock 1 ) -Undermining/Tunneling Ends (O'clock) 7 -Maximum Distance (cm) 1.5 -Circular Undermining No -Exudate Amt Large -Exudate Type Serosanguineous -Wound Margin Thickened & Rolled Under -Granulation Amt Medium (34-66%) -Granulation Quality [place],Red -Slough/Fibrin Yes -Necrosis Amt Medium (34-66%) -Necrotic Tissue Type Adherent Slough -Structure Exposed N/A -Texture (Mickie-wound Skin Appearance) Assessed -Moisture (Mickie-wound Skin Appearance) Assessed -Color (Mickie-wound Skin Appearance) Assessed -Temperature (Mickie-wound Skin No Abnormality Appearance) (Pt Warm) -Tenderness on Palpation (Mickie-wound No Skin Appearance) -Ulcer Cleansing Wound Cleanser -Foul Odor after Cleansing No -Anesthetic Used 5% Lidocaine Gel WC - Nurse 2 - General Ulcer CM Notes Start: 11/12/23 13:11 Freq: Status: Active Protocol: Activity Type Activity Date Activity User E-sign Co-sign Detail Recorded Client Recorded Date Recorded By Document 11/12/23 13:29 MW Desktop 11/12/23 13:35 MW 11/12/23 13:29 Wound Center Nurse 2 -Time 13:30 -Correct Patient Yes -Correct Side, Site, Position Yes -Correct Procedure Yes -Procedure Performed Yes -Type of Procedure Debridement -Clinical Debridement Muscle / Fascia -Tissue Removed Muscle,Fascia -Post Debridement (cm) - Length 1.2 -Post Debridement (cm) - Width 1.1 -Post Debridement (cm) - Depth 1.0 -Total Square (Post) (cm) 1.32 -Area of Debridement (cm) - Length 1.2 -Area of Debridement (cm) - Width 1.1 -Total Square (Area) (cm) 1.32 -Tunneling No -Undermining/Tunneling No -Circular Undermining No -Wound/Ulcer Outcome Not Healed -Ulcer Cleansing Rinsed/ Irrigated with Saline -Foul Odor after Cleansing No -Bioengineered Tissue No -Bleeding Controlled with Pressure -Offloading No -Debridement - Muscle / Fascia, 1st Yes 20sq cm Pain Scale: 0-10 Numeric Is Patient Pain Free? Yes - Nurse 3 - General Ulcer D/C NN Start: 11/12/23 13:11 Freq: Status: Active Protocol: Activity Type Activity Date Activity User E-sign Co-sign Detail Recorded Client Recorded Date Recorded By Document 11/12/23 13:49 RB Desktop 11/12/23 13:50 RB 11/12/23 13:49 Wound Care Center Nurse 3 1-Sacrum -Ulcer Cleansing Rinsed/ Irrigated with Saline -Primary Dressing Applied Mepilex Border, Promogran Samaria Matter -Mepilex Border 1 -Promogran Samaria Matter 2 Treatment Response Procedure Tolerated Well Pain Scale: 0-10 Numeric Is Patient Pain Free? Yes - Visit Discharge Discharge Condition Stable Ambulatory Status Ambulatory Transportation Private Auto Medication Reconcilliation completed & No provided to patient/care provider Clinical Summary of Care Provided Yes Assessment/Plan Assessment/Plan (1) Pressure ulcer of sacral region, stage 4: CODE(S): L89.154 - Pressure ulcer of sacral region, stage 4 (2) Personal history of COVID-19: CODE(S): Z86.16 - Personal history of COVID-19 (3) History of acute respiratory failure: CODE(S): Z87.09 - Personal history of other diseases of the respiratory system (4) Stroke/cerebrovascular accident: CODE(S): I63.9 - Cerebral infarction, unspecified PLAN: Plan Continue Dakin's 0.25 strength moistened gauze covered by ABD daily. Patient is ambulatory. When her Dakin's is finished, will start Silver dressings (Samaria) daily. Continue to avoid sitting/lying on this area for any length of time. Prealbumin from 06/20/23 was 26.6. Encourage nutritional supplementation with protein to help the healing process. Operative cultures (soft tissue and bone) from 06/19/23 were negative. Pathology from 06/19/23 was negative for osteomyelitis. Wound culture obtained 08/12/23 was positive for Corynebacterium striatum and Anaerobic cocci. He was treated with Flagyl. With regard to eventual closure of this sacral pressure sore, I don't want to use a muscle flap. Patient can ambulate and a muscle flap would be problematic with some gait disturbances. He would have to be setup with Physical Therapy to help improve the gait disturbance. Instead I could use a fasciocutaneous flap to improve the blood supply and there is no detachment of muscle with this type of flap. Because of its small size, a local transposition flap is also an option. Postoperatively he would need to be on complete bedrest for up to 4-6 weeks. A local transposition skin flap would need less bedrest than a fasciocutaneous flap. Before that surgery, I would obtain a wound culture. A positive culture would necessitate antibiotic therapy. Would also check a Prealbumin to maximize nutrition. Encourage nutritional supplementation. Patient is hesitant about the surgery because he doesn't like the idea of being on bedrest for 4-6 weeks. Follow up 2 weeks.
[2023-11-26 12:59] VITALS: BP 122/65; PULSE 64; RESP 16; TEMP 36.7
--- NOTE | 2023-11-26 14:12 | PN.PCM_ITS ---
History of Present Illness Date of Service: 11/26/23 Chief Complaint: Stage IV sacral ulcer History of Wound: Patient presents to wound care center today for evaluation and management of sacral pressure ulcer. This wound has been present for 1.5 years. It started when patient was hospitalized, on ventilator in ICU with COVID. It has significantly improved in size since then but has been stagnant in progress for some time now. He had been receiving wound care at the [place] wound center. He reports that it has never been cultured, he has never had imaging, and he has been following up in 2-month intervals with no debridement to between. His wound care has consisted Samaria and of otherwise leaving the wound open to air/covered with a thin layer of gauze. He has been instructed to keep it dry so he has been covering and taping over the area during showers. He is at this point frustrated with the lack of recent progress and decided to establish care here instead at the recommendation of a family friend. Surgery 06/19/23 - Excision sacral pressure sore, Stage IV, with partial o stectomy for osteomyelitis. Wound Care - Dakin's. Operative culture soft tissue - negative. Operative culture bone - negative. Pathology - Reactive changes. Mild chronic inflammation and minimal acute inflammation. Prealbumin from 06/20/23 was 26.6. Encourage nutritional supplementation with protein to help the healing process. CT Pelvis was done on 03/18/23. It showed no sclerotic or destructive changes to suggest osteomyelitis. Recent wound culture on 08/12/23 was positive for Anaerobic cocci and Corynebacterium striatum. He was treated with Flagyl. Today he denies fever. His appetite is good. Progress of Wound: Slightly improved. Objective Data Objective Data Vital Signs: Vital Signs Temp Pulse Resp BP O2 Del Method 98.1 F 64 16 122/65 H Room Air 11/26/23 12:59 11/26/23 12:59 11/26/23 12:59 11/26/23 12:59 11/26/23 12:59 Oxygen Delivery Method Room Air Prealbumin from 06/20/23 was 26.6.? Encourage nutritional supplementation with protein to help the healing process. Lab / Micro Data Attestation: I reviewed the patient's lab results. Charges/Coding Procedures Integumentary 111xxx-113xx: [id number] Roxi musc/fascia 20 sq cm/< (ICD-10 - L89.154, Z86.16, Z87.09, I63.9) Debridement Note Debridement Note Wound debrided: #1 sacral ulcer Laterality: Not Applicable Wound Grade/Stage: IV. Type of Debridement: Excisional debridement Anesthesia Used: 5% Lidocaine Gel Depth: Down to and including healthy tissue, in the subcutaneous layer, to muscle and - (bone is palpable but not exposed.) Percentage of wound debrided: 100 Instrument Used: 3mm curette Tissue Removed: subcutaneous tissue and muscle. Severity: Fat Layer Exposed (muscle is exposed. bone is palpable but not exposed.) Amount of bleeding with debridement: Mild Bleeding Controlled with: Pressure and Compression and gauze Patient tolerated procedure: Patient tolerated procedure well Post-Debridement Measurements and Additional Note: Post-Debridement Measurements/Treatment - Nurse 1 - General Ulcer Assessment Start: 11/12/23 13:11 Freq: Status: Active Protocol: KARIE.[employer] Systems[employer]YSON Activity Type Activity Date Activity User E-sign Co-sign Detail Recorded Client Recorded Date Recorded By Document 11/12/23 13:11 Desktop 11/12/23 13:13 RB Document 11/26/23 12:59 [facility] Desktop 11/26/23 13:06 BM 11/12/23 11/26/23 13:11 12:59 - Today's Visit Information Type of service Follow-up Visit Follow-up Visit (Physician/FIELD OPERATIONS MANAGER (Physician/FIELD OPERATIONS MANAGER ) ) Arrival Mode Ambulatory Ambulatory Transfer Assistance None None Accompanied by Patient Identification Verified (Name & Yes Yes ) Patient Requires Transmission-Based No No Precautions Vital Signs Temperature (97.8 F-99.1 F) 98.7 F 98.1 F Temperature Source Temporal Temporal Pulse Rate (60-100) 72 64 Pulse Location Monitor Monitor Respiratory Rate (12-18) 18 16 Respiratory rate source Observation Observation Oxygen Delivery Method Room Air Blood Pressure (90/60-120/80) 150/77 H 122/65 H Blood Pressure Mean (mm Hg) 101 84 Source Monitor Monitor Position Semi-Fowlers Sitting Blood Pressure Location Left Arm Right Arm History Since Last Visit- (Skip if this is Patient's initial visit) Have you changed medications since your No No last visit? Any new allergies or adverse reactions No No Had a fall/change in ADL's that may No No increase risk of falls Signs or symptoms of abuse and/or No No neglect since last visit Have you been in the hospital since your No No last visit? Has dressing in place as prescribed Yes Yes Has compression in place as prescribed No N/A Has offloadiing in place as prescribed No N/A Experienced any changes in pain level or No No management Left Footwear Regular Shoe Right Footwear Regular Shoe Pain Scale: 0-10 Numeric Is Patient Pain Free? Yes Yes WC - Nurse 1 - General Ulcer Measurement Start: 11/12/23 13:11 Freq: Status: Active Protocol: Activity Type Activity Date Activity User E-sign Co-sign Detail Recorded Client Recorded Date Recorded By Document 11/12/23 13:11 RB Desktop 11/12/23 13:13 RB Document 11/26/23 12:59 BMF Desktop 11/26/23 13:06 BMF 11/12/23 11/26/23 13:11 12:59 Wound Center Nurse 1 1-Sacrum -Combined with other wound No No -Current Size (cm) - Length 1.1 1.1 -Current Size (cm) - Width 1.2 1 -Current Size (cm) - Depth 1.2 2.4 -Total Square Cm 1.32 1.1 -Date of Last Picture (Recall this 11/26/23 field) -Photo Taken Yes -Tunneling No No -Undermining/Tunneling Yes Yes -Undermining/Tunneling Starts (O'clock 1 12 ) -Undermining/Tunneling Ends (O'clock) 7 4 -Maximum Distance (cm) 1.5 1.2 -Circular Undermining No No -Exudate Amt Large Medium -Exudate Type Serosanguineous Serosanguineous -Wound Margin Thickened & Distinct, Rolled Under Outline Attached -Granulation Amt Medium (34-66%) Large (67-100%) -Granulation Quality [place],Red Red -Slough/Fibrin Yes Yes -Necrosis Amt Medium (34-66%) Small (1-33%) -Necrotic Tissue Type Adherent Slough Adherent Slough -Structure Exposed N/A -Texture (Mickie-wound Skin Appearance) Assessed Assessed, Scarring -Moisture (Mickie-wound Skin Appearance) Assessed Assessed -Color (Mickie-wound Skin Appearance) Assessed Assessed -Temperature (Mickie-wound Skin No Abnormality No Abnormality Appearance) (Pt Warm) (Pt Warm) -Tenderness on Palpation (Mickie-wound No No Skin Appearance) -Ulcer Cleansing Wound Cleanser Rinsed/ Irrigated with Saline -Foul Odor after Cleansing No No -Anesthetic Used 5% Lidocaine 5% Lidocaine Gel Gel - Nurse 2 - General Ulcer CM Notes Start: 11/12/23 13:11 Freq: Status: Active Protocol: Activity Type Activity Date Activity User E-sign Co-sign Detail Recorded Client Recorded Date Recorded By Document 11/12/23 13:29 MW Desktop 11/12/23 13:35 MW Document 11/26/23 13:49 MW Desktop 11/26/23 13:53 MW 11/12/23 11/26/23 13:29 13:49 Wound Center Nurse 2 1-Sacrum -Time 13:30 13:50 -Correct Patient Yes Yes -Correct Side, Site, Position Yes Yes -Correct Procedure Yes Yes -Procedure Performed Yes Yes -Type of Procedure Debridement Debridement -Clinical Debridement Muscle / Fascia Muscle / Fascia -Tissue Removed Muscle,Fascia Muscle,Fascia -Post Debridement (cm) - Length 1.2 1.0 -Post Debridement (cm) - Width 1.1 1.3 -Post Debridement (cm) - Depth 1.0 0.9 -Total Square (Post) (cm) 1.32 1.30 -Area of Debridement (cm) - Length 1.2 1.0 -Area of Debridement (cm) - Width 1.1 1.3 -Total Square (Area) (cm) 1.32 1.30 -Tunneling No No -Undermining/Tunneling No No -Circular Undermining No No -Wound/Ulcer Outcome Not Healed Not Healed -Ulcer Cleansing Rinsed/ Rinsed/ Irrigated with Irrigated with Saline Saline -Foul Odor after Cleansing No No -Bioengineered Tissue No No -Bleeding Controlled with Pressure Pressure -Treatment Response Procedure Tolerated Well -Offloading No No -Debridement - Muscle / Fascia, 1st Yes Yes 20sq cm Pain Scale: 0-10 Numeric Is Patient Pain Free? Yes Yes - Nurse 3 - General Ulcer D/C NN Start: 11/12/23 13:11 Freq: Status: Active Protocol: Activity Type Activity Date Activity User E-sign Co-sign Detail Recorded Client Recorded Date Recorded By Document 11/12/23 13:49 RB Desktop 11/12/23 13:50 RB Document 11/26/23 13:59 DL Desktop 11/26/23 14:00 DL 11/12/23 11/26/23 13:49 13:59 Wound Care Center Nurse 3 1-Sacrum -Ulcer Cleansing Rinsed/ Rinsed/ Irrigated with Irrigated with Saline Saline -Foul Odor after Cleansing No -Primary Dressing Applied Mepilex Border, Mepilex Border Promogran Samaria Matter -Other Dressing dakins -Mepilex Border 1 1 -Promogran Samaria Matter 2 Treatment Response Procedure Procedure Tolerated Well Tolerated Well Pain Scale: 0-10 Numeric Is Patient Pain Free? Yes Yes WC - Visit Discharge Discharge Condition Stable Stable Ambulatory Status Ambulatory Ambulatory Transportation Private Auto Private Auto Medication Reconcilliation completed & No provided to patient/care provider Clinical Summary of Care Provided Yes Facility Type Home Health Orders Sent Yes Assessment/Plan Assessment/Plan (1) Pressure ulcer of sacral region, stage 4: CODE(S): L89.154 - Pressure ulcer of sacral region, stage 4 (2) Personal history of COVID-19: CODE(S): Z86.16 - Personal history of COVID-19 (3) History of acute respiratory failure: CODE(S): Z87.09 - Personal history of other diseases of the respiratory system (4) Stroke/cerebrovascular accident: CODE(S): I63.9 - Cerebral infarction, unspecified PLAN: Plan Continue Dakin's 0.25 strength moistened gauze covered by ABD daily. Patient is ambulatory. When her Dakin's is finished, will start Silver dressings (Samaria) daily. Continue to avoid sitting/lying on this area for any length of time. Prealbumin from 06/20/23 was 26.6. Encourage nutritional supplementation with protein to help the healing process. Operative cultures (soft tissue and bone) from 06/19/23 were negative. Pathology from 06/19/23 was negative for osteomyelitis. Wound culture obtained 08/12/23 was positive for Corynebacterium striatum and Anaerobic cocci. He was treated with Flagyl. With regard to eventual closure of this sacral pressure sore, I don't want to use a muscle flap. Patient can ambulate and a muscle flap would be problematic with some gait disturbances. He would have to be setup with Physical Therapy to help improve the gait disturbance. Instead I could use a fasciocutaneous flap to improve the blood supply and there is no detachment of muscle with this type of flap. Because of its small size, a local transposition flap is also an option. Postoperatively he would need to be on complete bedrest for up to 4-6 weeks. A local transposition skin flap would need less bedrest than a fasciocutaneous flap. Before that surgery, I would obtain a wound culture. A positive culture would necessitate antibiotic therapy. Would also check a Prealbumin to maximize nutrition. Encourage nutritional supplementation. Patient is hesitant about the surgery because he doesn't like the idea of being on bedrest for 4-6 weeks. Follow up 2 weeks.
== END 2023-11-30 23:59 | disposition home or self-care (01) ==
LOC: WC 13:00
PROVIDERS: PCP Family Medicine; Referring Provider Surgery; Visit Provider Surgery
DX: L89.154 Pressure ulcer of sacral region, stage 4 (principal); Z86.16 Personal history of COVID-19; Z87.09 Personal history of other diseases of the respiratory system; Z86.73 Personal history of transient ischemic attack (TIA), and cerebral infarction without residual deficits
CPT/HCPCS: 11043

== ENCOUNTER 2023-12-24 13:15 | Outpatient (RCR) | payer MEDICARE, BC, SELFPAY ==
[2023-12-01 00:43] VITALS: BP 122/65; PULSE 64; RESP 16; TEMP 36.7
[2023-12-10 13:12] VITALS: BP 143/62; PULSE 65; RESP 20; TEMP 36.6
--- NOTE | 2023-12-10 17:01 | PCM.WC.PN ---
History of Present Illness Date of Service: 12/10/23 Chief Complaint: Stage IV sacral ulcer History of Wound: Patient presents to wound care center today for evaluation and management of sacral pressure ulcer. This wound has been present for 1.5 years. It started when patient was hospitalized, on ventilator in ICU with COVID. It has significantly improved in size since then but has been stagnant in progress for some time now. He had been receiving wound care at the [place] wound center. He reports that it has never been cultured, he has never had imaging, and he has been following up in 2-month intervals with no debridement to between. His wound care has consisted Samaria and of otherwise leaving the wound open to air/covered with a thin layer of gauze. He has been instructed to keep it dry so he has been covering and taping over the area during showers. He is at this point frustrated with the lack of recent progress and decided to establish care here instead at the recommendation of a family friend. Surgery 06/19/23 - Excision sacral pressure sore, Stage IV, with partial ostectomy for osteomyelitis. Wound Care - Samaria. Operative culture soft tissue - negative. Operative culture bone - negative. Pathology - Reactive changes. Mild chronic inflammation and minimal acute inflammation. Prealbumin from 06/20/23 was 26.6. Encourage nutritional supplementation with protein to help the healing process. CT Pelvis was done on 03/18/23. It showed no sclerotic or destructive changes to suggest osteomyelitis. Recent wound culture on 08/12/23 was positive for Anaerobic cocci and Corynebacterium striatum. He was treated with Flagyl and has finished them. Today he denies fever. His appetite is good. Currently the patient does not want the ulcer excised and closed because of the need for total bed rest for 4-6 weeks Progress of Wound: Continues to improve slowly. Depth is less. Objective Data Objective Data Vital Signs: Vital Signs Temp Pulse Resp BP 97.9 F 65 20 H 143/62 H 12/10/23 13:12 12/10/23 13:12 12/10/23 13:12 12/10/23 13:12 Prealbumin from 06/20/23 was 26.6.? Encourage nutritional supplementation with protein to help the healing process. Lab / Micro Data Attestation: I reviewed the patient's lab results. Charges/Coding Procedures Integumentary [id number]: [id number] Roxi musc/fascia 20 sq cm/< (ICD-10 - L89.154, Z86.16, Z87.09, I63.9) Debridement Note Debridement Note Wound debrided: #1 sacral ulcer Laterality: Not Applicable Wound Grade/Stage: IV. Type of Debridement: Excisional debridement Anesthesia Used: 5% Lidocaine Gel Depth: Down to and including healthy tissue, in the subcutaneous layer, to muscle and - (bone is palpable but not exposed.) Percentage of wound debrided: 100 Instrument Used: 3mm curette Tissue Removed: subcutaneous tissue and muscle. Severity: Fat Layer Exposed (muscle is exposed. bone is palpable but not exposed.) Amount of bleeding with debridement: Mild Bleeding Controlled with: Pressure and Compression and gauze Patient tolerated procedure: Patient tolerated procedure well Post-Debridement Measurements and Additional Note: Post-Debridement Measurements/Treatment - Nurse 1 - General Ulcer Assessment Start: 12/10/23 13:09 Freq: Status: Active Protocol: DONNIE Activity Type Activity Date Activity User E-sign Co-sign Detail Recorded Client Recorded Date Recorded By Document 12/10/23 13:12 DL Desktop 12/10/23 13:19 DL 12/10/23 13:12 - Today's Visit Information Type of service Follow-up Visit (Physician/ADVANCED PRACTICE NURSE PSYCHOTHERAPIST ) Arrival Mode Ambulatory Transfer Assistance None Patient Identification Verified (Name & Yes ) Patient Requires Transmission-Based No Precautions Vital Signs Temperature (97.8 F-99.1 F) 97.9 F Temperature Source Temporal Pulse Rate (60-100) 65 Pulse Location Monitor Respiratory Rate (12-18) 20 H Respiratory rate source Observation Blood Pressure (90/60-120/80) 143/62 H Blood Pressure Mean (mm Hg) 89 Source Monitor History Since Last Visit- (Skip if this is Patient's initial visit) Have you changed medications since your No last visit? Any new allergies or adverse reactions No Had a fall/change in ADL's that may No increase risk of falls Signs or symptoms of abuse and/or No neglect since last visit Have you been in the hospital since your No last visit? Has dressing in place as prescribed Yes Has compression in place as prescribed N/A Has offloadiing in place as prescribed Yes Experienced any changes in pain level or No management Pain Scale: 0-10 Numeric Is Patient Pain Free? Yes - Nurse 1 - General Ulcer Measurement Start: 12/10/23 13:09 Freq: Status: Active Protocol: Activity Type Activity Date Activity User E-sign Co-sign Detail Recorded Client Recorded Date Recorded By Document 12/10/23 13:12 DL Desktop 12/10/23 13:19 DL 12/10/23 13:12 Wound Center Nurse 1 1-Sacrum -Current Size (cm) - Length 0.8 -Current Size (cm) - Width 0.9 -Current Size (cm) - Depth 1.8 -Total Square Cm 0.72 -Exudate Amt Medium -Exudate Type Serosanguineous -Wound Margin Distinct, Outline Attached -Granulation Amt Medium (34-66%) -Granulation Quality Red -Necrosis Amt Medium (34-66%) -Necrotic Tissue Type Adherent Slough -Structure Exposed N/A -Texture (Mickie-wound Skin Appearance) Scarring -Moisture (Mickie-wound Skin Appearance) No Abnormality -Color (Mickie-wound Skin Appearance) No Abnormality -Temperature (Mickie-wound Skin No Abnormality Appearance) (Pt Warm) -Tenderness on Palpation (Mickie-wound No Skin Appearance) -Ulcer Cleansing Soap and Water -Foul Odor after Cleansing No -Anesthetic Used 5% Lidocaine Gel WC - Nurse 2 - General Ulcer CM Notes Start: 12/10/23 13:09 Freq: Status: Active Protocol: Activity Type Activity Date Activity User E-sign Co-sign Detail Recorded Client Recorded Date Recorded By Document 12/10/23 13:33 MW Desktop 12/10/23 13:37 MW 12/10/23 13:33 Wound Center Nurse 2 -Time 13:34 -Correct Patient Yes -Correct Side, Site, Position Yes -Correct Procedure Yes -Procedure Performed Yes -Type of Procedure Debridement -Clinical Debridement Muscle / Fascia -Tissue Removed Muscle,Fascia -Post Debridement (cm) - Length 0.8 -Post Debridement (cm) - Width 0.7 -Post Debridement (cm) - Depth 1.2 -Total Square (Post) (cm) 0.56 -Area of Debridement (cm) - Length 0.8 -Area of Debridement (cm) - Width 0.7 -Total Square (Area) (cm) 0.56 -Tunneling No -Undermining/Tunneling No -Circular Undermining No -Wound/Ulcer Outcome Not Healed -Ulcer Cleansing Rinsed/ Irrigated with Saline -Foul Odor after Cleansing No -Bioengineered Tissue No -Bleeding Controlled with Pressure -Treatment Response Procedure Not Tolerated Well -Offloading No -Debridement - Muscle / Fascia, 1st Yes 20sq cm Pain Scale: 0-10 Numeric Is Patient Pain Free? Yes - Nurse 3 - General Ulcer D/C NN Start: 12/10/23 13:09 Freq: Status: Active Protocol: Activity Type Activity Date Activity User E-sign Co-sign Detail Recorded Client Recorded Date Recorded By Document 12/10/23 13:44 [facility] Desktop 12/10/23 13:44 [facility] 12/10/23 13:44 Wound Care Center Nurse 3 1-Sacrum -Ulcer Cleansing Rinsed/ Irrigated with Saline -Foul Odor after Cleansing No -Primary Dressing Applied Promogran -Other Dressing ABD -Primary Dressing Covered/Secured with Secured with Tape -Promogran 1 Treatment Response Procedure Tolerated Well Pain Scale: 0-10 Numeric Is Patient Pain Free? Yes - Visit Discharge Discharge Condition Stable Ambulatory Status Ambulatory Transportation Private Auto Accompanied by Assessment/Plan Assessment/Plan (1) Pressure ulcer of sacral region, stage 4: CODE(S): L89.154 - Pressure ulcer of sacral region, stage 4 (2) Personal history of COVID-19: CODE(S): Z86.16 - Personal history of COVID-19 (3) History of acute respiratory failure: CODE(S): Z87.09 - Personal history of other diseases of the respiratory system (4) Stroke/cerebrovascular accident: CODE(S): I63.9 - Cerebral infarction, unspecified PLAN: Plan Continue Samaria dressing changes daily. Continue to avoid sitting/lying on this area for any length of time. Patient is ambulatory. Prealbumin from 06/20/23 was 26.6. Encourage nutritional supplementation with protein to help the healing process. Operative cultures (soft tissue and bone) from 06/19/23 were negative. Pathology from 06/19/23 was negative for osteomyelitis. Wound culture obtained 08/12/23 was positive for Corynebacterium striatum and Anaerobic cocci. He was treated with Flagyl and finished them without problems. With regard to eventual closure of this sacral pressure sore, I don't want to use a muscle flap. Patient can ambulate and a muscle flap would be problematic with some gait disturbances. He would have to be setup with Physical Therapy to help improve the gait disturbance. Instead I could use a fasciocutaneous flap to improve the blood supply and there is no detachment of muscle with this type of flap. Because of its small size, a local transposition flap is also an option. Postoperatively he would need to be on complete bedrest for up to 4-6 weeks. A local transposition skin flap would need less bedrest than a fasciocutaneous flap. Before that surgery, I would obtain a wound culture. A positive culture would necessitate antibiotic therapy. Would also check a Prealbumin to maximize nutrition. Encourage nutritional supplementation. Patient is hesitant about the surgery because he doesn't like the idea of being on bedrest for 4-6 weeks. Follow up 2 weeks.
[2023-12-24 13:19] VITALS: BP 127/67; PULSE 69; RESP 20; TEMP 36.4
--- NOTE | 2023-12-24 16:09 | PN.PCM_ITS ---
History of Present Illness Date of Service: 12/24/23 Chief Complaint: Stage IV sacral ulcer History of Wound: Patient presents to wound care center today for evaluation and management of sacral pressure ulcer. This wound has been present for 1.5 years. It started when patient was hospitalized, on ventilator in ICU with COVID. It has significantly improved in size since then but has been stagnant in progress for some time now. He had been receiving wound care at the [place] wound center. He reports that it has never been cultured, he has never had imaging, and he has been following up in 2-month intervals with no debridement to between. His wound care has consisted Samaria and of otherwise leaving the wound open to air/covered with a thin layer of gauze. He has been instructed to keep it dry so he has been covering and taping over the area during showers. He is at this point frustrated with the lack of recent progress and decided to establish care here instead at the recommendation of a family friend. Surgery 06/19/23 - Excision sacral pressure sore, Stage IV, with partial o stectomy for osteomyelitis. Wound Care - Samaria. Operative culture soft tissue - negative. Operative culture bone - negative. Pathology - Reactive changes. Mild chronic inflammation and minimal acute inflammation. Prealbumin from 06/20/23 was 26.6. Encourage nutritional supplementation with protein to help the healing process. CT Pelvis was done on 03/18/23. It showed no sclerotic or destructive changes to suggest osteomyelitis. Recent wound culture on 08/12/23 was positive for Anaerobic cocci and Corynebacterium striatum. He was treated with Flagyl and has finished them. Today he denies fever. His appetite is good. Currently the patient does not want the ulcer excised and closed because of the need for total bed rest for 4-6 weeks Progress of Wound: Ulcer is stable. He states that he is not sure he needs home health any longer. His is able to do the dressing changes without difficulty and home health comes out once per week. Objective Data Objective Data Vital Signs: Vital Signs Temp Pulse Resp BP 97.6 F L 69 20 H 127/67 H 12/24/23 13:19 12/24/23 13:19 12/24/23 13:19 12/24/23 13:19 Charges/Coding Procedures Integumentary [id number]: [id number] Roxi musc/fascia 20 sq cm/< (ICD-10 - L89.154, Z86.16, Z87.09, I63.9) Debridement Note Debridement Note Wound debrided: #1 sacral ulcer Laterality: Not Applicable Wound Grade/Stage: IV. Type of Debridement: Excisional debridement Anesthesia Used: 5% Lidocaine Gel Depth: Down to and including healthy tissue, in the subcutaneous layer, to muscle and - (bone is palpable but not exposed.) Percentage of wound debrided: 100 Instrument Used: 3mm curette Tissue Removed: subcutaneous tissue and muscle. Severity: Fat Layer Exposed (muscle is exposed. bone is palpable but not exposed.) Amount of bleeding with debridement: Mild Bleeding Controlled with: Pressure and Compression and gauze Patient tolerated procedure: Patient tolerated procedure well Post-Debridement Measurements and Additional Note: Post-Debridement Measurements/Treatment WC - Nurse 1 - General Ulcer Assessment Start: 12/10/23 13:09 Freq: Status: Active Protocol: [email or web address] Activity Type Activity Date Activity User E-sign Co-sign Detail Recorded Client Recorded Date Recorded By Document 12/10/23 13:12 DL Desktop 12/10/23 13:19 DL Document 12/24/23 13:19 DL Desktop 12/24/23 13:22 DL 12/10/23 12/24/23 13:12 13:19 WC - Today's Visit Information Type of service Follow-up Visit Follow-up Visit (Physician/FRE[employer] SALES BROKER (Physician/FREIGHT SAL[employer] BROKER ) ) Arrival Mode Ambulatory Ambulatory Transfer Assistance None None Patient Identification Verified (Name & Yes Yes ) Patient Requires Transmission-Based No No Precautions Vital Signs Temperature (97.8 F-99.1 F) 97.9 F 97.6 F L Temperature Source Temporal Temporal Pulse Rate (60-100) 65 69 Pulse Location Monitor Monitor Respiratory Rate (12-18) 20 H 20 H Respiratory rate source Observation Observation Blood Pressure (90/60-120/80) 143/62 H 127/67 H Blood Pressure Mean (mm Hg) 89 87 Source Monitor Monitor History Since Last Visit- (Skip if this is Patient's initial visit) Have you changed medications since your No No last visit? Any new allergies or adverse reactions No No Had a fall/change in ADL's that may No No increase risk of falls Signs or symptoms of abuse and/or No No neglect since last visit Have you been in the hospital since your No No last visit? Has dressing in place as prescribed Yes Yes Has compression in place as prescribed N/A N/A Has offloadiing in place as prescribed Yes Yes Experienced any changes in pain level or No No management Pain Scale: 0-10 Numeric Is Patient Pain Free? Yes Yes KARIE - Nurse 1 - General Ulcer Measurement Start: 12/10/23 13:09 Freq: Status: Active Protocol: Activity Type Activity Date Activity User E-sign Co-sign Detail Recorded Client Recorded Date Recorded By Document 12/10/23 13:12 DL Desktop 12/10/23 13:19 DL Document 12/24/23 13:19 DL Desktop 12/24/23 13:22 DL 12/10/23 12/24/23 13:12 13:19 Wound Center Nurse 1 1-Sacrum -Current Size (cm) - Length 0.8 0.7 -Current Size (cm) - Width 0.9 0.7 -Current Size (cm) - Depth 1.8 1.8 -Total Square Cm 0.72 0.49 -Photo Taken Yes -Exudate Amt Medium Medium -Exudate Type Serosanguineous -Wound Margin Distinct, Thickened & Outline Rolled Under Attached -Granulation Amt Medium (34-66%) Large (67-100%) -Granulation Quality Red Red -Necrosis Amt Medium (34-66%) None Present (0 %) -Necrotic Tissue Type Adherent Slough -Structure Exposed N/A N/A -Texture (Mickie-wound Skin Appearance) Scarring Scarring -Moisture (Mickie-wound Skin Appearance) No Abnormality No Abnormality -Color (Mickie-wound Skin Appearance) No Abnormality No Abnormality -Temperature (Mickie-wound Skin No Abnormality No Abnormality Appearance) (Pt Warm) (Pt Warm) -Tenderness on Palpation (Mickie-wound No No Skin Appearance) -Ulcer Cleansing Soap and Water Soap and Water -Foul Odor after Cleansing No No -Anesthetic Used 5% Lidocaine 5% Lidocaine Gel Gel WC - Nurse 2 - General Ulcer CM Notes Start: 12/10/23 13:09 Freq: Status: Active Protocol: Activity Type Activity Date Activity User E-sign Co-sign Detail Recorded Client Recorded Date Recorded By Document 12/10/23 13:33 MW Desktop 12/10/23 13:37 MW Document 12/24/23 13:41 MW Desktop 12/24/23 13:46 12/10/23 12/24/23 13:33 13:41 Wound Center Nurse 2 1-Sacrum -Time 13:34 13:42 -Correct Patient Yes Yes -Correct Side, Site, Position Yes Yes -Correct Procedure Yes Yes -Procedure Performed Yes Yes -Type of Procedure Debridement Debridement -Clinical Debridement Muscle / Fascia Muscle / Fascia -Tissue Removed Muscle,Fascia Muscle -Post Debridement (cm) - Length 0.8 0.9 -Post Debridement (cm) - Width 0.7 1.4 -Post Debridement (cm) - Depth 1.2 1.8 -Total Square (Post) (cm) 0.56 1.26 -Area of Debridement (cm) - Length 0.8 0.9 -Area of Debridement (cm) - Width 0.7 1.4 -Total Square (Area) (cm) 0.56 1.26 -Tunneling No No -Undermining/Tunneling No No -Circular Undermining No Yes -Wound/Ulcer Outcome Not Healed Not Healed -Ulcer Cleansing Rinsed/ Rinsed/ Irrigated with Irrigated with Saline Saline -Foul Odor after Cleansing No -Bioengineered Tissue No No -Bleeding Controlled with Pressure Pressure -Treatment Response Procedure Not Procedure Tolerated Well Tolerated Well -Offloading No No -Debridement - Muscle / Fascia, 1st Yes Yes 20sq cm Pain Scale: 0-10 Numeric Is Patient Pain Free? Yes Yes - Nurse 3 - General Ulcer D/C NN Start: 12/10/23 13:09 Freq: Status: Active Protocol: Activity Type Activity Date Activity User E-sign Co-sign Detail Recorded Client Recorded Date Recorded By Document 12/10/23 13:44 [facility] Desktop 12/10/23 13:44 [facility] Document 12/24/23 13:54 [facility] Desktop 12/24/23 13:54 [facility] 12/10/23 12/24/23 13:44 13:54 Wound Care Center Nurse 3 1-Sacrum -Ulcer Cleansing Rinsed/ Rinsed/ Irrigated with Irrigated with Saline Saline -Foul Odor after Cleansing No No -Primary Dressing Applied Promogran Hysept ($), Mepilex Border -Other Dressing ABD -Primary Dressing Covered/Secured with Secured with Tape -Mepilex Border 1 -Promogran 1 Treatment Response Procedure Procedure Tolerated Well Tolerated Well Pain Scale: 0-10 Numeric Is Patient Pain Free? Yes Yes WC - Visit Discharge Discharge Condition Stable Stable Ambulatory Status Ambulatory Ambulatory Transportation Private Auto Private Auto Accompanied by Assessment/Plan Assessment/Plan (1) Pressure ulcer of sacral region, stage 4: CODE(S): L89.154 - Pressure ulcer of sacral region, stage 4 (2) Personal history of COVID-19: CODE(S): Z86.16 - Personal history of COVID-19 (3) History of acute respiratory failure: CODE(S): Z87.09 - Personal history of other diseases of the respiratory system (4) Stroke/cerebrovascular accident: CODE(S): I63.9 - Cerebral infarction, unspecified PLAN: Plan Change back to [place] 0.25 moistened gauze covered with ABD or [place] SAP daily. Continue to avoid sitting/lying on this area for any length of time. Patient is ambulatory. Prealbumin from 06/20/23 was 26.6. Encourage nutritional supplementation with protein to help the healing process. Operative cultures (soft tissue and bone) from 06/19/23 were negative. Pathology from 06/19/23 was negative for osteomyelitis. Wound culture obtained 08/12/23 was positive for Corynebacterium striatum and Anaerobic cocci. He was treated with Flagyl and finished them without problems. With regard to eventual closure of this sacral pressure sore, I don't want to use a muscle flap. Patient can ambulate and a muscle flap would be problematic with some gait disturbances. He would have to be setup with Physical Therapy to help improve the gait disturbance. Instead I could use a fasciocutaneous flap to improve the blood supply and there is no detachment of muscle with this type of flap. Because of its small size, a local transposition flap is also an option. Postoperatively he would need to be on complete bedrest for up to 4-6 weeks. A local transposition skin flap would need less bedrest than a fasciocutaneous flap. Before that surgery, I would obtain a wound culture. A positive culture would necessitate antibiotic therapy. Would also check a Prealbumin to maximize nutrition. Encourage nutritional supplementation. Patient is hesitant about the surgery because he doesn't like the idea of being on bedrest for 4-6 weeks. Will contact his home health and discontinue their services, since his is able to change his dressing without difficulty. Follow up 2 weeks.
== END 2023-12-30 23:59 | disposition home or self-care (01) ==
LOC: WC 13:15
PROVIDERS: PCP Family Medicine; Referring Provider Surgery; Visit Provider Surgery
DX: L89.154 Pressure ulcer of sacral region, stage 4 (principal); Z86.16 Personal history of COVID-19; Z86.73 Personal history of transient ischemic attack (TIA), and cerebral infarction without residual deficits; Z87.09 Personal history of other diseases of the respiratory system
CPT/HCPCS: 11043

== ENCOUNTER 2024-01-21 13:15 | Outpatient (RCR) | payer MEDICARE, BC, SELFPAY ==
[2023-12-31 00:49] VITALS: BP 127/67; PULSE 69; RESP 20; TEMP 36.4
[2024-01-07 15:25] VITALS: BP 142/70; PULSE 76; RESP 16; TEMP 36.2
--- NOTE | 2024-01-07 16:06 | PN.PCM_ITS ---
History of Present Illness Date of Service: 01/07/24 Chief Complaint: Stage IV sacral ulcer History of Wound: Patient presents to wound care center today for evaluation and management of sacral pressure ulcer. This wound has been present for 1.5 years. It started when patient was hospitalized, on ventilator in ICU with COVID. It has significantly improved in size since then but has been stagnant in progress for some time now. He had been receiving wound care at the [facility]. He reports that it has never been cultured, he has never had imaging, and he has been following up in 2-month intervals with no debridement to between. His wound care has consisted Samaria and of otherwise leaving the wound open to air/covered with a thin layer of gauze. He has been instructed to keep it dry so he has been covering and taping over the area during showers. He is at this point frustrated with the lack of recent progress and decided to establish care here instead at the recommendation of a family friend. Surgery 06/19/23 - Excision sacral pressure sore, Stage IV, with partial o stectomy for osteomyelitis. Wound Care - Samaria. Operative culture soft tissue - negative. Operative culture bone - negative. Pathology - Reactive changes. Mild chronic inflammation and minimal acute inflammation. Prealbumin from 06/20/23 was 26.6. Encourage nutritional supplementation with protein to help the healing process. CT Pelvis was done on 03/18/23. It showed no sclerotic or destructive changes to suggest osteomyelitis. Recent wound culture on 08/12/23 was positive for Anaerobic cocci and Corynebacterium striatum. He was treated with Flagyl and has finished them. Today he denies fever. His appetite is good. Currently the patient does not want the ulcer excised and closed because of the need for total bed rest for 4-6 weeks Progress of Wound: Ulcer is stable, base is nice beefy pink color. Objective Data Objective Data Vital Signs: Vital Signs Temp Pulse Resp BP O2 Del Method 97.2 F L 76 16 142/70 H Room Air 01/07/24 15:25 01/07/24 15:25 01/07/24 15:25 01/07/24 15:25 01/07/24 15:25 Oxygen Delivery Method Room Air Charges/Coding Procedures Integumentary 111xxx-113xx: [id number] Roxi musc/fascia 20 sq cm/< Debridement Note Debridement Note Wound debrided: #1 sacral ulcer Laterality: Not Applicable Wound Grade/Stage: IV. Type of Debridement: Excisional debridement Anesthesia Used: 5% Lidocaine Gel Depth: Down to and including healthy tissue, in the subcutaneous layer, to muscle and - (bone is palpable but not exposed.) Percentage of wound debrided: 100 Instrument Used: 5mm curette Tissue Removed: subcutaneous tissue and muscle. Severity: Fat Layer Exposed (muscle is exposed. bone is palpable but not exposed.) Amount of bleeding with debridement: Mild Bleeding Controlled with: Pressure and Compression and gauze Patient tolerated procedure: Patient tolerated procedure well Post-Debridement Measurements and Additional Note: Post-Debridement Measurements/Treatment - Nurse 1 - General Ulcer Assessment Start: 01/07/24 15:24 Freq: Status: Active Protocol: DONNIE Activity Type Activity Date Activity User E-sign Co-sign Detail Recorded Client Recorded Date Recorded By Document 01/07/24 15:25 [facility] Desktop 01/07/24 15:31 [facility] 01/07/24 15:25 - Today's Visit Information Type of service 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 ) Arrival Mode Ambulatory Transfer Assistance None Accompanied by Patient Identification Verified (Name & Yes ) Patient Requires Transmission-Based No Precautions Vital Signs Temperature (97.8 F-99.1 F) 97.2 F L Temperature Source Temporal Pulse Rate (60-100) 76 Pulse Location Monitor Respiratory Rate (12-18) 16 Respiratory rate source Observation Oxygen Delivery Method Room Air Blood Pressure (90/60-120/80) 142/70 H Blood Pressure Mean (mm Hg) 94 Source Monitor Position Sitting Blood Pressure Location Left Arm History Since Last Visit- (Skip if this is Patient's initial visit) Have you changed medications since your No last visit? Any new allergies or adverse reactions No Had a fall/change in ADL's that may No increase risk of falls Signs or symptoms of abuse and/or No neglect since last visit Have you been in the hospital since your No last visit? Has dressing in place as prescribed Yes Has compression in place as prescribed N/A Has offloadiing in place as prescribed N/A Experienced any changes in pain level or No management Left Footwear Regular Shoe Right Footwear Regular Shoe Pain Scale: 0-10 Numeric Is Patient Pain Free? Yes - Nurse 1 - General Ulcer Measurement Start: 01/07/24 15:24 Freq: Status: Active Protocol: Activity Type Activity Date Activity User E-sign Co-sign Detail Recorded Client Recorded Date Recorded By Document 01/07/24 15:25 [facility] Desktop 01/07/24 15:31 [facility] 01/07/24 15:25 Wound Center Nurse 1 1-Sacrum -Combined with other wound No -Current Size (cm) - Length 1.1 -Current Size (cm) - Width 1.1 -Current Size (cm) - Depth 1.5 -Total Square Cm 1.21 -Tunneling No -Undermining/Tunneling No -Circular Undermining No -Exudate Amt Large -Exudate Type Serosanguineous -Wound Margin Thickened & Rolled Under -Granulation Amt Medium (34-66%) -Granulation Quality [place] -Slough/Fibrin Yes -Necrosis Amt Medium (34-66%) -Necrotic Tissue Type Adherent Slough -Structure Exposed N/A -Texture (Mickie-wound Skin Appearance) Assessed, Scarring -Moisture (Mickie-wound Skin Appearance) Assessed, Maceration -Color (Mickie-wound Skin Appearance) Assessed -Temperature (Mickie-wound Skin No Abnormality Appearance) (Pt Warm) -Tenderness on Palpation (Mickie-wound No Skin Appearance) -Ulcer Cleansing Rinsed/ Irrigated with Saline -Foul Odor after Cleansing No -Anesthetic Used 5% Lidocaine Gel WC - Nurse 2 - General Ulcer CM Notes Start: 01/07/24 15:24 Freq: Status: Active Protocol: Activity Type Activity Date Activity User E-sign Co-sign Detail Recorded Client Recorded Date Recorded By Document 01/07/24 15:53 Desktop 01/07/24 15:56 01/07/24 15:53 Wound Center Nurse 2 -Time 15:53 -Correct Patient Yes -Correct Side, Site, Position Yes -Correct Procedure Yes -Procedure Performed Yes -Type of Procedure Debridement -Clinical Debridement Muscle / Fascia -Tissue Removed Muscle -Post Debridement (cm) - Length 1.0 -Post Debridement (cm) - Width 1.4 -Post Debridement (cm) - Depth 1.0 -Total Square (Post) (cm) 1.40 -Area of Debridement (cm) - Length 1.0 -Area of Debridement (cm) - Width 1.4 -Total Square (Area) (cm) 1.40 -Tunneling No -Undermining/Tunneling No -Maximum Distance #2 (cm) 1.3 -Circular Undermining Yes -Wound/Ulcer Outcome Not Healed -Ulcer Cleansing Rinsed/ Irrigated with Saline -Foul Odor after Cleansing No -Bioengineered Tissue No -Bleeding Controlled with Pressure -Treatment Response Procedure Tolerated Well -Debridement - Subq, 1st 20sq cm Yes -Debridement - Muscle / Fascia, 1st Yes 20sq cm Pain Scale: 0-10 Numeric Is Patient Pain Free? Yes Assessment/Plan Assessment/Plan (1) Pressure ulcer of sacral region, stage 4: CODE(S): L89.154 - Pressure ulcer of sacral region, stage 4 (2) Personal history of COVID-19: CODE(S): Z86.16 - Personal history of COVID-19 (3) History of acute respiratory failure: CODE(S): Z87.09 - Personal history of other diseases of the respiratory system (4) Stroke/cerebrovascular accident: CODE(S): I63.9 - Cerebral infarction, unspecified PLAN: Plan Wound care - Dakins 0.25% moistened gauze covered with fluffed gauze and topped with ABD or [place] SAP daily. Continue to avoid sitting/lying on this area for any length of time. Patient is ambulatory. Prealbumin from 06/20/23 was 26.6. Encourage nutritional supplementation with protein to help the healing process. Operative cultures (soft tissue and bone) from 06/19/23 were negative. Pathology from 06/19/23 was negative for osteomyelitis. Wound culture obtained 08/12/23 was positive for Corynebacterium striatum and Anaerobic cocci. He was treated with Flagyl and finished them without problems. With regard to eventual closure of this sacral pressure sore, I don't want to use a muscle flap. Patient can ambulate and a muscle flap would be problematic with some gait disturbances. He would have to be setup with Physical Therapy to help improve the gait disturbance. Instead I could use a fasciocutaneous flap to improve the blood supply and there is no detachment of muscle with this type of flap. Because of its small size, a local transposition flap is also an option. Postoperatively he would need to be on complete bedrest for up to 4-6 weeks. A local transposition skin flap would need less bedrest than a fasciocutaneous flap. Before that surgery, I would obtain a wound culture. A positive culture would necessitate antibiotic therapy. Would also check a Prealbumin to maximize nutrition. Encourage nutritional supplementation. Patient is hesitant about the surgery because he doesn't like the idea of being on bedrest for 4-6 weeks. Follow up 2 weeks.
[2024-01-21 13:29] VITALS: BP 130/64; PULSE 67; RESP 18; TEMP 36.9
--- NOTE | 2024-01-21 16:33 | PN.PCM_ITS ---
History of Present Illness Date of Service: 01/21/24 Chief Complaint: Stage IV sacral ulcer History of Wound: Patient presents to wound care center today for evaluation and management of sacral pressure ulcer. This wound has been present for 1.5 years. It started when patient was hospitalized, on ventilator in ICU with COVID. It has significantly improved in size since then but has been stagnant in progress for some time now. He had been receiving wound care at the [facility]. He reports that it has never been cultured, he has never had imaging, and he has been following up in 2-month intervals with no debridement to between. His wound care has consisted Samaria and of otherwise leaving the wound open to air/covered with a thin layer of gauze. He has been instructed to keep it dry so he has been covering and taping over the area during showers. He is at this point frustrated with the lack of recent progress and decided to establish care here instead at the recommendation of a family friend. Surgery 06/19/23 - Excision sacral pressure sore, Stage IV, with partial o stectomy for osteomyelitis. Wound Care - Samaria. Operative culture soft tissue - negative. Operative culture bone - negative. Pathology - Reactive changes. Mild chronic inflammation and minimal acute inflammation. Prealbumin from 06/20/23 was 26.6. Encourage nutritional supplementation with protein to help the healing process. CT Pelvis was done on 03/18/23. It showed no sclerotic or destructive changes to suggest osteomyelitis. Recent wound culture on 08/12/23 was positive for Anaerobic cocci and Corynebacterium striatum. He was treated with Flagyl and has finished them. Today he denies fever. His appetite is good. Currently the patient does not want the ulcer excised and closed because of the need for total bed rest for 4-6 weeks Progress of Wound: Ulcer bed us beefy pink. There is an area that there is a sharp piece of bone palpable. The opening of the ulcer has become smaller, making it more difficult to do wound care. Objective Data Objective Data Vital Signs: Vital Signs Temp Pulse Resp BP O2 Del Method 98.5 F 67 18 130/64 H Room Air 01/21/24 13:29 01/21/24 13:29 01/21/24 13:29 01/21/24 13:29 01/07/24 15:25 Oxygen Delivery Method Room Air Charges/Coding Procedures Integumentary 111xxx-113xx: [id number] Roxi bone 20 sq cm/< Debridement Note Debridement Note Wound debrided: #1 sacral ulcer Laterality: Not Applicable Wound Grade/Stage: IV. Type of Debridement: Excisional debridement Anesthesia Used: 5% Lidocaine Gel Depth: Down to and including healthy tissue, in the subcutaneous layer, to muscle and to bone Percentage of wound debrided: 100 Instrument Used: 5mm curette Tissue Removed: Non viable tissue and slough. Smoothed piece of sharp bone w/snippers Severity: Fat Layer Exposed (muscle is exposed. bone is palpable but not exposed.) Amount of bleeding with debridement: Mild Bleeding Controlled with: Pressure and Compression and gauze Patient tolerated procedure: Patient tolerated procedure well Debridement Free Text: Used snippers to smooth out a sharp piece of palpable bone. With debridement attempted to make the ulcer opening larger for easier wound care. 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 (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 ) ) Arrival Mode Ambulatory Ambulatory Transfer Assistance None None Accompanied by Patient Identification Verified (Name & Yes Yes ) Patient Requires Transmission-Based No No Precautions Vital Signs Temperature (97.8 F-99.1 F) 97.2 F L 98.5 F Temperature Source Temporal Temporal Pulse Rate (60-100) 76 67 Pulse Location Monitor Monitor Respiratory Rate (12-18) 16 18 Respiratory rate source Observation Observation Oxygen Delivery Method Room Air Blood Pressure (90/60-120/80) 142/70 H 130/64 H Blood Pressure Mean (mm Hg) 94 86 Source Monitor Monitor Position Sitting Semi-Fowlers Blood Pressure Location Left Arm Left Arm History Since Last Visit- (Skip if this is Patient's initial visit) Have you changed medications since your No No last visit? Any new allergies or adverse reactions No No Had a fall/change in ADL's that may No No increase risk of falls Signs or symptoms of abuse and/or No No neglect since last visit Have you been in the hospital since your No No last visit? Has dressing in place as prescribed Yes Yes Has compression in place as prescribed N/A No Has offloadiing in place as prescribed N/A No Experienced any changes in pain level or No No management Left Footwear Regular Shoe Right Footwear Regular Shoe Pain Scale: 0-10 Numeric Is Patient Pain Free? Yes Yes WC - Nurse 1 - General Ulcer Measurement Start: 01/07/24 15:24 Freq: Status: Active Protocol: Activity Type Activity Date Activity User E-sign Co-sign Detail Recorded Client Recorded Date Recorded By Document 01/07/24 15:25 [facility] Desktop 01/07/24 15:31 BM Document 01/21/24 13:29 RB wound center 01/21/24 13:31 RB 01/07/24 01/21/24 15:25 13:29 Wound Center Nurse 1 1-Sacrum -Combined with other wound No No -Current Size (cm) - Length 1.1 1 -Current Size (cm) - Width 1.1 0.8 -Current Size (cm) - Depth 1.5 1.8 -Total Square Cm 1.21 0.8 -Tunneling No No -Undermining/Tunneling No Yes -Undermining/Tunneling Starts (O'clock 12 ) -Undermining/Tunneling Ends (O'clock) 12 -Maximum Distance (cm) 1.8 -Circular Undermining No Yes -Exudate Amt Large Large -Exudate Type Serosanguineous Serosanguineous -Wound Margin Thickened & Thickened Rolled Under -Granulation Amt Medium (34-66%) Medium (34-66%) -Granulation Quality [place] -Slough/Fibrin Yes Yes -Necrosis Amt Medium (34-66%) Medium (34-66%) -Necrotic Tissue Type Adherent Slough Adherent Slough -Structure Exposed N/A N/A -Texture (Mickie-wound Skin Appearance) Assessed, Scarring Scarring -Moisture (Mickie-wound Skin Appearance) Assessed, Assessed Maceration -Color (Mickie-wound Skin Appearance) Assessed Assessed -Temperature (Mickie-wound Skin No Abnormality No Abnormality Appearance) (Pt Warm) (Pt Warm) -Tenderness on Palpation (Mickie-wound No No Skin Appearance) -Ulcer Cleansing Rinsed/ Wound Cleanser Irrigated with Saline -Foul Odor after Cleansing No No -Anesthetic Used 5% Lidocaine 5% Lidocaine Gel Gel KARIE - Nurse 2 - General Ulcer CM Notes Start: 01/07/24 15:24 Freq: Status: Active Protocol: Activity Type Activity Date Activity User E-sign Co-sign Detail Recorded Client Recorded Date Recorded By Document 01/07/24 15:53 GM Desktop 01/07/24 15:56 GM Document 01/21/24 13:43 wound center 01/21/24 13:54 GM 01/07/24 01/21/24 15:53 13:43 Wound Center Nurse 2 1-Sacrum -Time 15:53 13:43 -Correct Patient Yes Yes -Correct Side, Site, Position Yes Yes -Correct Procedure Yes Yes -Procedure Performed Yes Yes -Type of Procedure Debridement Debridement -Clinical Debridement Muscle / Fascia Bone -Tissue Removed Muscle Non-viable tissue -Post Debridement (cm) - Length 1.0 1.2 -Post Debridement (cm) - Width 1.4 1.5 -Post Debridement (cm) - Depth 1.0 1.9 -Total Square (Post) (cm) 1.40 1.80 -Area of Debridement (cm) - Length 1.0 1.2 -Area of Debridement (cm) - Width 1.4 1.5 -Total Square (Area) (cm) 1.40 1.80 -Tunneling No -Undermining/Tunneling No No -Undermining/Tunneling Starts (O'clock 12 ) -Undermining/Tunneling Ends (O'clock) 24 -Maximum Distance (cm) 0.9 -Maximum Distance #2 (cm) 1.3 -Circular Undermining Yes -Wound/Ulcer Outcome Not Healed Not Healed -Ulcer Cleansing Rinsed/ Irrigated with Saline -Foul Odor after Cleansing No -Bioengineered Tissue No -Bleeding Controlled with Pressure Pressure -Treatment Response Procedure Procedure Tolerated Well Tolerated Well -Debridement - Subq, 1st 20sq cm Yes -Debridement - Muscle / Fascia, 1st Yes 20sq cm -Debridement - Bone, 1st 20sq cm Yes Pain Scale: 0-10 Numeric Is Patient Pain Free? Yes Yes KARIE - Nurse 3 - General Ulcer D/C NN Start: 01/07/24 15:24 Freq: Status: Active Protocol: Activity Type Activity Date Activity User E-sign Co-sign Detail Recorded Client Recorded Date Recorded By Document 01/07/24 16:10 RB Desktop 01/07/24 16:11 RB Document 01/21/24 14:15 ML [id number] 01/21/24 14:16 ML 01/07/24 01/21/24 16:10 14:15 Wound Care Center Nurse 3 1-Sacrum -Ulcer Cleansing Rinsed/ Rinsed/ Irrigated with Irrigated with Saline Saline -Foul Odor after Cleansing No -Primary Dressing Applied Mepilex Border Mepilex Border -Other Dressing dakins dakins soaked moistened gauze gauze -Primary Dressing Covered/Secured with Dry Gauze Dry Gauze -Mepilex Border 1 1 Treatment Response Procedure Tolerated Well Pain Scale: 0-10 Numeric Is Patient Pain Free? Yes Yes WC - Visit Discharge Discharge Condition Stable Ambulatory Status Ambulatory Transportation Private Auto Medication Reconcilliation completed & No provided to patient/care provider Clinical Summary of Care Provided Yes Notes: dressing applied per jacki hunt RN Assessment/Plan Assessment/Plan (1) Pressure ulcer of sacral region, stage 4: CODE(S): L89.154 - Pressure ulcer of sacral region, stage 4 (2) Personal history of COVID-19: CODE(S): Z86.16 - Personal history of COVID-19 (3) History of acute respiratory failure: CODE(S): Z87.09 - Personal history of other diseases of the respiratory system (4) Stroke/cerebrovascular accident: CODE(S): I63.9 - Cerebral infarction, unspecified PLAN: Plan Wound care - Dakins 0.25% moistened gauze covered with fluffed gauze and topped with ABD or [place] SAP daily. Continue to avoid sitting/lying on this area for any length of time. Patient is ambulatory. Prealbumin from 06/20/23 was 26.6. Encourage nutritional supplementation with protein to help the healing process. Operative cultures (soft tissue and bone) from 06/19/23 were negative. Pathology from 06/19/23 was negative for osteomyelitis. Wound culture obtained 08/12/23 was positive for Corynebacterium striatum and Anaerobic cocci. He was treated with Flagyl and finished them without problems. Follow up [address] Cagle note: With regard to eventual closure of this sacral pressure sore, I don't want to use a muscle flap. Patient can ambulate and a muscle flap would be problematic with some gait disturbances. He would have to be setup with Physical Therapy to help improve the gait disturbance. Instead I could use a fasciocutaneous flap to improve the blood supply and there is no detachment of muscle with this type of flap. Because of its small size, a local transposition flap is also an option. Postoperatively he would need to be on complete bedrest for up to 4-6 weeks. A local transposition skin flap would need less bedrest than a fasciocutaneous flap. Before that surgery, I would obtain a wound culture. A positive culture would necessitate antibiotic therapy. Would also check a Prealbumin to maximize nutrition. Encourage nutritional supplementation. Patient is hesitant about the surgery because he doesn't like the idea of being on bedrest for 4-6 weeks.
== END 2024-01-30 23:59 | disposition home or self-care (01) ==
LOC: WC 13:15
PROVIDERS: PCP Family Medicine; Referring Provider Surgery; Visit Provider Surgery
DX: L89.154 Pressure ulcer of sacral region, stage 4 (principal); Z86.16 Personal history of COVID-19; Z86.73 Personal history of transient ischemic attack (TIA), and cerebral infarction without residual deficits
CPT/HCPCS: 11042; 11043; 11044

== ENCOUNTER 2024-02-25 13:00 | Outpatient (RCR) | payer MEDICARE, BC, SELFPAY ==
[2024-01-31 02:23] VITALS: BP 127/67; PULSE 69; RESP 20; TEMP 36.4
[2024-02-04 13:10] VITALS: BP 128/68; PULSE 72; RESP 18; TEMP 36.6
--- NOTE | 2024-02-04 15:46 | PCM.WC.PN ---
History of Present Illness Date of Service: 02/04/24 Chief Complaint: Stage IV sacral ulcer History of Wound: Patient presents to wound care center today for evaluation and management of sacral pressure ulcer. This wound has been present for 1.5 years. It started when patient was hospitalized, on ventilator in ICU with COVID. It has significantly improved in size since then but has been stagnant in progress for some time now. He had been receiving wound care at the [place] wound center. He reports that it has never been cultured, he has never had imaging, and he has been following up in 2-month intervals with no debridement to between. His wound care has consisted Samaria and of otherwise leaving the wound open to air/covered with a thin layer of gauze. He has been instructed to keep it dry so he has been covering and taping over the area during showers. He is at this point frustrated with the lack of recent progress and decided to establish care here instead at the recommendation of a family friend. Surgery 06/19/23 - Excision sacral pressure sore, Stage IV, with partial ostectomy for osteomyelitis. Wound Care - Samaria. Operative culture soft tissue - negative. Operative culture bone - negative. Pathology - Reactive changes. Mild chronic inflammation and minimal acute inflammation. Prealbumin from 06/20/23 was 26.6. Encourage nutritional supplementation with protein to help the healing process. CT Pelvis was done on 03/18/23. It showed no sclerotic or destructive changes to suggest osteomyelitis. Recent wound culture on 08/12/23 was positive for Anaerobic cocci and Corynebacterium striatum. He was treated with Flagyl and has finished them. Today he denies fever. His appetite is good. Currently the patient does not want the ulcer excised and closed because of the need for total bed rest for 4-6 weeks Progress of Wound: Ulcer bed us beefy pink. The opening of the ulcer is slightly smaller than the actual ulcer. His states she is not having issues doing wound care. There is no bone palpable today. Mickie wound is clear. Overall measuring smaller this week. Objective Data Objective Data Vital Signs: Vital Signs Temp Pulse Resp BP O2 Del Method 98 F 72 18 128/68 H Room Air 02/04/24 13:10 02/04/24 13:10 02/04/24 13:10 02/04/24 13:10 02/04/24 13:10 Oxygen Delivery Method Room Air Charges/Coding Procedures Integumentary 111xxx-113xx: 52862 Roxi musc/fascia 20 sq cm/< Debridement Note Debridement Note Wound debrided: #1 sacral ulcer Laterality: Not Applicable Wound Grade/Stage: IV. Type of Debridement: Excisional debridement Anesthesia Used: 5% Lidocaine Gel Depth: Down to and including healthy tissue, in the subcutaneous layer and to muscle Percentage of wound debrided: 100 Instrument Used: 5mm curette Tissue Removed: Non viable tissue and slough. Bone palpable but covered with tissue. Severity: Fat Layer Exposed (muscle is exposed. bone is palpable but not exposed.) Amount of bleeding with debridement: Mild Bleeding Controlled with: Pressure and Compression and gauze Patient tolerated procedure: Patient tolerated procedure well Post-Debridement Measurements and Additional Note: Post-Debridement Measurements/Treatment [facility] Nurse 1 - General Ulcer Assessment Start: 02/04/24 13:09 Freq: Status: Active Protocol: DONNIE Activity Type Activity Date Activity User E-sign Co-sign Detail Recorded Client Recorded Date Recorded By Document 02/04/24 13:10 SC [email or web address] 02/04/24 13:16 SC 02/04/24 13:10 - Today's Visit Information Type of service Follow-up Visit (Physician/CYBER FORENSIC SPECIALIST ) Arrival Mode Ambulatory,Cane Accompanied by Patient Identification Verified (Name & Yes ) Safety Precautions Fall Prevention Vital Signs Temperature (97.8 F-99.1 F) 98 F Temperature Source Temporal Pulse Rate (60-100) 72 Pulse Location Monitor Respiratory Rate (12-18) 18 Respiratory rate source Observation Oxygen Delivery Method Room Air Blood Pressure (90/60-120/80) 128/68 H Blood Pressure Mean (mm Hg) 88 Source Monitor Position Sitting Blood Pressure Location Right Arm History Since Last Visit- (Skip if this is Patient's initial visit) Has dressing in place as prescribed Yes Has compression in place as prescribed N/A Has offloadiing in place as prescribed N/A Experienced any changes in pain level or No management Left Footwear Regular Shoe Right Footwear Regular Shoe Pain Scale: 0-10 Numeric Is Patient Pain Free? Yes [facility] Nurse 1 - General Ulcer Measurement Start: 02/04/24 13:09 Freq: Status: Active Protocol: Activity Type Activity Date Activity User E-sign Co-sign Detail Recorded Client Recorded Date Recorded By Document 02/04/24 13:10 [email or web address] 02/04/24 13:16 SC 02/04/24 13:10 Wound Center Nurse 1 1-Sacrum -Current Size (cm) - Length 0.7 -Current Size (cm) - Width 0.9 -Current Size (cm) - Depth 2.1 -Total Square Cm 0.63 -Photo Taken No -Tunneling No -Undermining/Tunneling Yes -Undermining/Tunneling Starts (O'clock 11 ) -Undermining/Tunneling Ends (O'clock) 6 -Maximum Distance (cm) 1.1 -Circular Undermining No -Exudate Amt Small -Exudate Type Serosanguineous -Wound Margin Well Defined, Not Attached -Granulation Amt Large (67-100%) -Granulation Quality Pale,[place] -Slough/Fibrin No -Texture (Mickie-wound Skin Appearance) Assessed -Moisture (Mickie-wound Skin Appearance) Assessed -Color (Mickie-wound Skin Appearance) Assessed -Temperature (Mickie-wound Skin No Abnormality Appearance) (Pt Warm) -Tenderness on Palpation (Mickie-wound No Skin Appearance) -Ulcer Cleansing Soap and Water -Foul Odor after Cleansing No Lower Limb Edema Present NA WC - Nurse 2 - General Ulcer CM Notes Start: 02/04/24 13:09 Freq: Status: Active Protocol: Activity Type Activity Date Activity User E-sign Co-sign Detail Recorded Client Recorded Date Recorded By Document 02/04/24 13:44 GM 02/04/24 13:45 GM Edit Result 02/04/24 13:44 GM (1) 02/04/24 13:47 GM (1) 1-Sacrum - Clinical Debridement Subcutaneous => Muscle / Fascia - Tissue Removed Subcutaneous => Muscle - Debridement - Subq, 1st 20sq cm Yes => - Debridement - Muscle / Fascia, 1st => Yes 20sq cm 02/04/24 13:44 Wound Center Nurse 2 1-Sacrum -Time 13:44 -Correct Patient Yes -Correct Side, Site, Position Yes -Correct Procedure Yes -Procedure Performed Yes -Type of Procedure Debridement -Clinical Debridement Muscle / Fascia -Tissue Removed Muscle -Post Debridement (cm) - Length 1.0 -Post Debridement (cm) - Width 1.4 -Post Debridement (cm) - Depth 0.8 -Total Square (Post) (cm) 1.40 -Area of Debridement (cm) - Length 1.0 -Area of Debridement (cm) - Width 1.4 -Total Square (Area) (cm) 1.40 -Tunneling Yes -Tunneling Position (O'clock) 6 -Tunneling Distance (cm) 1.7 -Circular Undermining No -Wound/Ulcer Outcome Not Healed -Ulcer Cleansing Rinsed/ Irrigated with Saline -Foul Odor after Cleansing No -Bioengineered Tissue No -Bleeding Controlled with Pressure -Treatment Response Procedure Tolerated Well -Debridement - Muscle / Fascia, 1st Yes 20sq cm Pain Scale: 0-10 Numeric Is Patient Pain Free? Yes WC - Nurse 3 - General Ulcer D/C NN Start: 02/04/24 13:09 Freq: Status: Active Protocol: Activity Type Activity Date Activity User E-sign Co-sign Detail Recorded Client Recorded Date Recorded By Document 02/04/24 14:00 SC [email or web address] 02/04/24 14:00 SC 02/04/24 14:00 Wound Care Center Nurse 3 1-Sacrum -Primary Dressing Applied Mepilex Border -Primary Dressing Covered/Secured with Dry Gauze, Secured with Tape -Mepilex Border 2 Pain Scale: 0-10 Numeric Is Patient Pain Free? Yes Assessment/Plan Assessment/Plan (1) Pressure ulcer of sacral region, stage 4: CODE(S): L89.154 - Pressure ulcer of sacral region, stage 4 (2) Personal history of COVID-19: CODE(S): Z86.16 - Personal history of COVID-19 (3) History of acute respiratory failure: CODE(S): Z87.09 - Personal history of other diseases of the respiratory system (4) Stroke/cerebrovascular accident: CODE(S): I63.9 - Cerebral infarction, unspecified PLAN: Plan Wound care - Dakins 0.25% moistened gauze covered with fluffed gauze and topped with ABD or [place] SAP daily. Continue to avoid sitting/lying on this area for any length of time. Patient is ambulatory. Prealbumin from 06/20/23 was 26.6. Encourage nutritional supplementation with protein to help the healing process. Operative cultures (soft tissue and bone) from 06/19/23 were negative. Pathology from 06/19/23 was negative for osteomyelitis. Wound culture obtained 08/12/23 was positive for Corynebacterium striatum and Anaerobic cocci. He was treated with Flagyl and finished them without problems. Follow up [address] Cagle note: With regard to eventual closure of this sacral pressure sore, I don't want to use a muscle flap. Patient can ambulate and a muscle flap would be problematic with some gait disturbances. He would have to be setup with Physical Therapy to help improve the gait disturbance. Instead I could use a fasciocutaneous flap to improve the blood supply and there is no detachment of muscle with this type of flap. Because of its small size, a local transposition flap is also an option. Postoperatively he would need to be on complete bedrest for up to 4-6 weeks. A local transposition skin flap would need less bedrest than a fasciocutaneous flap. Before that surgery, I would obtain a wound culture. A positive culture would necessitate antibiotic therapy. Would also check a Prealbumin to maximize nutrition. Encourage nutritional supplementation. Patient is hesitant about the surgery because he doesn't like the idea of being on bedrest for 4-6 weeks.
[2024-02-18 13:10] VITALS: BP 139/73; PULSE 76; RESP 18; TEMP 36.6
--- NOTE | 2024-02-18 17:15 | PN.PCM_ITS ---
History of Present Illness Date of Service: 02/18/24 Chief Complaint: Stage IV sacral ulcer History of Wound: Patient presents to wound care center today for evaluation and management of sacral pressure ulcer. This wound has been present for 1.5 years. It started when patient was hospitalized, on ventilator in ICU with COVID. It has significantly improved in size since then but has been stagnant in progress for some time now. He had been receiving wound care at the [place] wound center. He reports that it has never been cultured, he has never had imaging, and he has been following up in 2-month intervals with no debridement to between. His wound care has consisted Samaria and of otherwise leaving the wound open to air/covered with a thin layer of gauze. He has been instructed to keep it dry so he has been covering and taping over the area during showers. He is at this point frustrated with the lack of recent progress and decided to establish care here instead at the recommendation of a family friend. Surgery 06/19/23 - Excision sacral pressure sore, Stage IV, with partial o stectomy for osteomyelitis. Wound Care - Samaria. Operative culture soft tissue - negative. Operative culture bone - negative. Pathology - Reactive changes. Mild chronic inflammation and minimal acute inflammation. Prealbumin from 06/20/23 was 26.6. Encourage nutritional supplementation with protein to help the healing process. CT Pelvis was done on 03/18/23. It showed no sclerotic or destructive changes to suggest osteomyelitis. Recent wound culture on 08/12/23 was positive for Anaerobic cocci and Corynebacterium striatum. He was treated with Flagyl and has finished them. Today he denies fever. His appetite is good. Currently the patient does not want the ulcer excised and closed because of the need for total bed rest for 4-6 weeks Progress of Wound: Ulcer bed us beefy pink. There is no bone palpable but it is covered with granulation tissue. Here is some undermining present. Mickie wound is clear. His states she is not having issues doing wound care. He has bee sitting/lying on it more because he hurt his back and the only way he can sleep is flat on his back. Objective Data Objective Data Vital Signs: Vital Signs Temp Pulse Resp BP O2 Del Method 98 F 76 18 139/73 H Room Air 02/18/24 13:10 02/18/24 13:10 02/18/24 13:10 02/18/24 13:10 02/18/24 13:10 Oxygen Delivery Method Room Air Charges/Coding Procedures Integumentary 111xxx-113xx: 15143 Roxi musc/fascia 20 sq cm/< Debridement Note Debridement Note Wound debrided: #1 sacral ulcer Laterality: Not Applicable Wound Grade/Stage: IV. Type of Debridement: Excisional debridement Anesthesia Used: 5% Lidocaine Gel Depth: Down to and including healthy tissue, in the subcutaneous layer and to muscle Percentage of wound debrided: 100 Instrument Used: 5mm curette Tissue Removed: Non viable tissue and slough. Bone palpable but covered with tissue. Severity: Fat Layer Exposed (muscle is exposed. bone is palpable but not exposed.) Amount of bleeding with debridement: Mild Bleeding Controlled with: Pressure and Compression and gauze Patient tolerated procedure: Patient tolerated procedure well Post-Debridement Measurements and Additional Note: Post-Debridement Measurements/Treatment - Nurse 1 - General Ulcer Assessment Start: 02/04/24 13:09 Freq: Status: Active Protocol: DONNIE Activity Type Activity Date Activity User E-sign Co-sign Detail Recorded Client Recorded Date Recorded By Document 02/04/24 13:10 WV [email or web address] 02/04/24 13:16 WV Document 02/18/24 13:10 WV [id number] 02/18/24 13:16 WV 02/04/24 02/18/24 13:10 13:10 - Today's Visit Information Type of service Follow-up Visit Follow-up Visit (Physician/MANAGER LIBRARY (Physician/MANAGER LIBRARY ) ) Arrival Mode Ambulatory,Cane Ambulatory Accompanied by Patient Identification Verified (Name & Yes Yes ) Safety Precautions Fall Prevention Fall Prevention Vital Signs Temperature (97.8 F-99.1 F) 98 F 98 F Temperature Source Temporal Temporal Pulse Rate (60-100) 72 76 Pulse Location Monitor Monitor Respiratory Rate (12-18) 18 18 Respiratory rate source Observation Observation Oxygen Delivery Method Room Air Room Air Blood Pressure (90/60-120/80) 128/68 H 139/73 H Blood Pressure Mean (mm Hg) 88 95 Source Monitor Monitor Position Sitting Sitting Blood Pressure Location Right Arm Right Arm History Since Last Visit- (Skip if this is Patient's initial visit) Has dressing in place as prescribed Yes No Has compression in place as prescribed N/A N/A Has offloadiing in place as prescribed N/A N/A Experienced any changes in pain level or No No management Left Footwear Regular Shoe Regular Shoe Right Footwear Regular Shoe Regular Shoe Pain Scale: 0-10 Numeric Is Patient Pain Free? Yes Yes WC - Nurse 1 - General Ulcer Measurement Start: 02/04/24 13:09 Freq: Status: Active Protocol: Activity Type Activity Date Activity User E-sign Co-sign Detail Recorded Client Recorded Date Recorded By Document 02/04/24 13:10 WV [email or web address] 02/04/24 13:16 WV Document 02/18/24 13:10 WV [id number] 02/18/24 13:16 WV 02/04/24 02/18/24 13:10 13:10 Wound Center Nurse 1 1-Sacrum -Current Size (cm) - Length 0.7 1.0 -Current Size (cm) - Width 0.9 1.0 -Current Size (cm) - Depth 2.1 2.0 -Total Square Cm 0.63 1.00 -Photo Taken No -Tunneling No -Undermining/Tunneling Yes -Undermining/Tunneling Starts (O'clock 11 ) -Undermining/Tunneling Ends (O'clock) 6 -Maximum Distance (cm) 1.1 -Circular Undermining No Yes -Exudate Amt Small Small -Exudate Type Serosanguineous Serosanguineous -Wound Margin Well Defined, Thickened & Not Attached Rolled Under -Granulation Amt Large (67-100%) Large (67-100%) -Granulation Quality Pale,[place] Pale,[place] -Slough/Fibrin No No -Texture (Mickie-wound Skin Appearance) Assessed Assessed -Moisture (Mickie-wound Skin Appearance) Assessed Assessed -Color (Mickie-wound Skin Appearance) Assessed Assessed -Temperature (Mickie-wound Skin No Abnormality No Abnormality Appearance) (Pt Warm) (Pt Warm) -Tenderness on Palpation (Mickie-wound No No Skin Appearance) -Ulcer Cleansing Soap and Water Soap and Water -Foul Odor after Cleansing No No -Anesthetic Used 5% Lidocaine Gel Lower Limb Edema Present NA NA WC - Nurse 2 - General Ulcer CM Notes Start: 02/04/24 13:09 Freq: Status: Active Protocol: Activity Type Activity Date Activity User E-sign Co-sign Detail Recorded Client Recorded Date Recorded By Document 02/04/24 13:44 GM 02/04/24 13:45 GM Edit Result 02/04/24 13:44 GM (1) 02/04/24 13:47 GM Document 02/18/24 13:53 GM 02/18/24 14:04 GM (1) 1-Sacrum - Clinical Debridement Subcutaneous => Muscle / Fascia - Tissue Removed Subcutaneous => Muscle - Debridement - Subq, 1st 20sq cm Yes => - Debridement - Muscle / Fascia, 1st => Yes 20sq cm 02/04/24 02/18/24 13:44 13:53 Wound Center Nurse 2 1-Sacrum -Time 13:44 13:54 -Correct Patient Yes Yes -Correct Side, Site, Position Yes Yes -Correct Procedure Yes Yes -Procedure Performed Yes Yes -Type of Procedure Debridement Debridement -Clinical Debridement Muscle / Fascia Muscle / Fascia -Tissue Removed Muscle Muscle -Post Debridement (cm) - Length 1.0 1.3 -Post Debridement (cm) - Width 1.4 1.5 -Post Debridement (cm) - Depth 0.8 1.0 -Total Square (Post) (cm) 1.40 1.95 -Area of Debridement (cm) - Length 1.0 1.3 -Area of Debridement (cm) - Width 1.4 1.5 -Total Square (Area) (cm) 1.40 1.95 -Tunneling Yes No -Tunneling Position (O'clock) 6 -Tunneling Distance (cm) 1.7 -Undermining/Tunneling No -Circular Undermining No Yes -Wound/Ulcer Outcome Not Healed Not Healed -Ulcer Cleansing Rinsed/ Rinsed/ Irrigated with Irrigated with Saline Saline -Foul Odor after Cleansing No No -Bioengineered Tissue No No -Bleeding Controlled with Pressure Pressure -Treatment Response Procedure Procedure Tolerated Well Tolerated Well -Debridement - Muscle / Fascia, 1st Yes Yes 20sq cm Pain Scale: 0-10 Numeric Is Patient Pain Free? Yes Yes - Nurse 3 - General Ulcer D/C NN Start: 02/04/24 13:09 Freq: Status: Active Protocol: Activity Type Activity Date Activity User E-sign Co-sign Detail Recorded Client Recorded Date Recorded By Document 02/04/24 14:00 [facility] [email or web address] 02/04/24 14:00 [facility] Document 02/18/24 14:08 [facility] [id number] 02/18/24 14:09 [facility] 02/04/24 02/18/24 14:00 14:08 Wound Care Center Nurse 3 1-Sacrum -Ulcer Cleansing Rinsed/ Irrigated with Saline -Foul Odor after Cleansing No -Primary Dressing Applied Mepilex Border Mepilex Border -Other Dressing DAKINS MOIST GAUZE; DRSG PER MT RN -Primary Dressing Covered/Secured with Dry Gauze, Secured with Tape -Mepilex Border 2 2 Treatment Response Procedure Tolerated Well Pain Scale: 0-10 Numeric Is Patient Pain Free? Yes Yes WC - Visit Discharge Discharge Condition Stable Ambulatory Status Ambulatory Transportation Private Auto Accompanied by Assessment/Plan Assessment/Plan (1) Pressure ulcer of sacral region, stage 4: CODE(S): L89.154 - Pressure ulcer of sacral region, stage 4 (2) Personal history of COVID-19: CODE(S): Z86.16 - Personal history of COVID-19 (3) History of acute respiratory failure: CODE(S): Z87.09 - Personal history of other diseases of the respiratory system (4) Stroke/cerebrovascular accident: CODE(S): I63.9 - Cerebral infarction, unspecified PLAN: Plan Wound care - Dakins 0.25% moistened gauze covered with fluffed gauze and topped with ABD or [place] SAP daily. Continue to avoid sitting/lying on this area for any length of time. Patient is ambulatory. Prealbumin from 06/20/23 was 26.6. Encourage nutritional supplementation with protein to help the healing process. Operative cultures (soft tissue and bone) from 06/19/23 were negative. Pathology from 06/19/23 was negative for osteomyelitis. Wound culture obtained 08/12/23 was positive for Corynebacterium striatum and Anaerobic cocci. He was treated with Flagyl and finished them without problems. Follow up 2 weeks.
--- NOTE | 2024-02-24 10:29 | WC ---
Called patient's since he did not respond to the call and his voicemail is full. Per milana lazo KAIWHAKAHAERE, his wound culture was ok and he does not need any antibiotics at this time. Mrs Betancourt voiced relief about this and thanked us for calling.
[2024-02-25 13:24] VITALS: BP 130/61; PULSE 73; RESP 18; TEMP 36.6
--- NOTE | 2024-02-25 14:10 | PCM.WC.PN ---
History of Present Illness Date of Service: 02/25/24 Chief Complaint: Stage IV sacral ulcer History of Wound: Patient presents to wound care center today for evaluation and management of sacral pressure ulcer. This wound has been present for 1.5 years. It started when patient was hospitalized, on ventilator in ICU with COVID. It has significantly improved in size since then but has been stagnant in progress for some time now. He had been receiving wound care at the [place] wound center. He reports that it has never been cultured, he has never had imaging, and he has been following up in 2-month intervals with no debridement to between. His wound care has consisted Samaria and of otherwise leaving the wound open to air/covered with a thin layer of gauze. He has been instructed to keep it dry so he has been covering and taping over the area during showers. He is at this point frustrated with the lack of recent progress and decided to establish care here instead at the recommendation of a family friend. Surgery 06/19/23 - Excision sacral pressure sore, Stage IV, with partial ostectomy for osteomyelitis. Wound Care - Samaria. Operative culture soft tissue - negative. Operative culture bone - negative. Pathology - Reactive changes. Mild chronic inflammation and minimal acute inflammation. Prealbumin from 06/20/23 was 26.6. Encourage nutritional supplementation with protein to help the healing process. CT Pelvis was done on 03/18/23. It showed no sclerotic or destructive changes to suggest osteomyelitis. Wound culture on 08/12/23 was positive for Anaerobic cocci and Corynebacterium striatum. He was treated with Flagyl and has finished them. Today he denies fever. His appetite is good. Wound culture 02/18/24 positive for Corynebacterium striatum. This is considered a contaminant. Currently the patient does not want the ulcer excised and closed because of the need for total bed rest for 4-6 weeks Progress of Wound: Ulcer bed us beefy pink. The bone is palpable but it is covered with granulation tissue. There is some undermining present from 11-3 o'clock. Mickie wound is clear. His states she is not having issues doing wound care. Objective Data Objective Data Vital Signs: Vital Signs Temp Pulse Resp BP O2 Del Method 97.9 F 73 18 130/61 H Room Air 02/25/24 13:24 02/25/24 13:24 02/25/24 13:24 02/25/24 13:24 02/18/24 13:10 Oxygen Delivery Method Room Air Lab / Micro Data Micro: Microbiology 02/18/24 14:00 Wound - Other Gram Stain - Final 02/18/24 14:00 Wound - Other Wound Culture - Final Corynebacterium striatum 02/18/24 14:00 Wound - Other Anaerobic Culture - Final No anaerobic bacteria isolated. Charges/Coding Procedures Integumentary [id number]: [id number] Roxi musc/fascia 20 sq cm/< Debridement Note Debridement Note Wound debrided: #1 sacral ulcer Laterality: Not Applicable Wound Grade/Stage: IV. Type of Debridement: Excisional debridement Anesthesia Used: 5% Lidocaine Gel Depth: Down to and including healthy tissue, in the subcutaneous layer and to muscle Percentage of wound debrided: 100 Instrument Used: 5mm curette Tissue Removed: Non viable tissue and slough into the muscle. Severity: Fat Layer Exposed (muscle is exposed. bone is palpable but not exposed.) Amount of bleeding with debridement: Mild Bleeding Controlled with: Pressure and Compression and gauze Patient tolerated procedure: Patient tolerated procedure well Debridement Free Text: Bone palpable but covered with tissue. Post-Debridement Measurements and Additional Note: Post-Debridement Measurements/Treatment - Nurse 1 - General Ulcer Assessment Start: 02/04/24 13:09 Freq: Status: Active Protocol: ODNNIE Activity Type Activity Date Activity User E-sign Co-sign Detail Recorded Client Recorded Date Recorded By Document 02/04/24 13:10 RI [email or web address] 02/04/24 13:16 RI Document 02/18/24 13:10 RI [id number] 02/18/24 13:16 RI Document 02/25/24 13:24 RB wound 02/25/24 13:27 RB 02/04/24 02/18/24 02/25/24 13:10 13:10 13:24 - Today's Visit Information Type of service Follow-up Visit Follow-up Visit Follow-up Visit (Physician/ELEMENTARY EDUCATION TUTOR (Physician/ELEMENTARY EDUCATION TUTOR (Physician/ELEMENTARY EDUCATION TUTOR ) ) ) Arrival Mode Ambulatory,Cane Ambulatory Ambulatory Transfer Assistance None Accompanied by Patient Identification Verified (Name & Yes Yes Yes ) Patient Requires Transmission-Based No Precautions Safety Precautions Fall Prevention Fall Prevention Vital Signs Temperature (97.8 F-99.1 F) 98 F 98 F 97.9 F Temperature Source Temporal Temporal Temporal Pulse Rate (60-100) 72 76 73 Pulse Location Monitor Monitor Monitor Respiratory Rate (12-18) 18 18 18 Respiratory rate source Observation Observation Observation Oxygen Delivery Method Room Air Room Air Blood Pressure (90/60-120/80) 128/68 H 139/73 H 130/61 H Blood Pressure Mean (mm Hg) 88 95 84 Source Monitor Monitor Monitor Position Sitting Sitting Semi-Fowlers Blood Pressure Location Right Arm Right Arm Left Arm History Since Last Visit- (Skip if this is Patient's initial visit) Have you changed medications since your No last visit? Any new allergies or adverse reactions No Had a fall/change in ADL's that may No increase risk of falls Signs or symptoms of abuse and/or No neglect since last visit Have you been in the hospital since your No last visit? Has dressing in place as prescribed Yes No Yes Has compression in place as prescribed N/A N/A No Has offloadiing in place as prescribed N/A N/A No Experienced any changes in pain level or No No No management Left Footwear Regular Shoe Regular Shoe Right Footwear Regular Shoe Regular Shoe Pain Scale: 0-10 Numeric Is Patient Pain Free? Yes Yes Yes WC - Nurse 1 - General Ulcer Measurement Start: 02/04/24 13:09 Freq: Status: Active Protocol: Activity Type Activity Date Activity User E-sign Co-sign Detail Recorded Client Recorded Date Recorded By Document 02/04/24 13:10 RI [email or web address] 02/04/24 13:16 MT Document 02/18/24 13:10 RI [id number] 02/18/24 13:16 MT Document 02/25/24 13:24 RB wound 02/25/24 13:27 RB 02/04/24 02/18/24 02/25/24 13:10 13:10 13:24 Wound Center Nurse 1 1-Sacrum -Combined with other wound No -Current Size (cm) - Length 0.7 1.0 1.1 -Current Size (cm) - Width 0.9 1.0 1 -Current Size (cm) - Depth 2.1 2.0 1.5 -Total Square Cm 0.63 1.00 1.1 -Photo Taken No -Tunneling No No -Undermining/Tunneling Yes Yes -Undermining/Tunneling Starts (O'clock 11 12 ) -Undermining/Tunneling Ends (O'clock) 6 12 -Maximum Distance (cm) 1.1 1.5 -Circular Undermining No Yes No -Exudate Amt Small Small Large -Exudate Type Serosanguineous Serosanguineous Serosanguineous -Wound Margin Well Defined, Thickened & Thickened & Not Attached Rolled Under Rolled Under -Granulation Amt Large (67-100%) Large (67-100%) Large (67-100%) -Granulation Quality Pale,[place] Pale,[place] -Slough/Fibrin No No Yes -Necrosis Amt Medium (34-66%) -Necrotic Tissue Type Adherent Slough -Structure Exposed Bone,N/A -Texture (Mickie-wound Skin Appearance) Assessed Assessed Assessed, Scarring -Moisture (Mickie-wound Skin Appearance) Assessed Assessed Assessed -Color (Mickie-wound Skin Appearance) Assessed Assessed Assessed -Temperature (Mickie-wound Skin No Abnormality No Abnormality No Abnormality Appearance) (Pt Warm) (Pt Warm) (Pt Warm) -Tenderness on Palpation (Mickie-wound No No No Skin Appearance) -Ulcer Cleansing Soap and Water Soap and Water Wound Cleanser -Foul Odor after Cleansing No No No -Anesthetic Used 5% Lidocaine 4% Lidocaine Gel Solution Lower Limb Edema Present NA NA - Nurse 2 - General Ulcer CM Notes Start: 02/04/24 13:09 Freq: Status: Active Protocol: Activity Type Activity Date Activity User E-sign Co-sign Detail Recorded Client Recorded Date Recorded By Document 02/04/24 13:44 GM 02/04/24 13:45 GM Edit Result 02/04/24 13:44 GM (1) 02/04/24 13:47 GM Document 02/18/24 13:53 GM 02/18/24 14:04 GM Document 02/25/24 13:34 GM 02/25/24 13:37 GM (1) 1-Sacrum - Clinical Debridement Subcutaneous => Muscle / Fascia - Tissue Removed Subcutaneous => Muscle - Debridement - Subq, 1st 20sq cm Yes => - Debridement - Muscle / Fascia, 1st => Yes 20sq cm 02/04/24 02/18/24 02/25/24 13:44 13:53 13:34 Wound Center Nurse 2 1-Sacrum -Time 13:44 13:54 13:34 -Correct Patient Yes Yes Yes -Correct Side, Site, Position Yes Yes Yes -Correct Procedure Yes Yes Yes -Procedure Performed Yes Yes Yes -Type of Procedure Debridement Debridement Debridement -Clinical Debridement Muscle / Fascia Muscle / Fascia Muscle / Fascia -Tissue Removed Muscle Muscle Muscle -Post Debridement (cm) - Length 1.0 1.3 1.0 -Post Debridement (cm) - Width 1.4 1.5 1.5 -Post Debridement (cm) - Depth 0.8 1.0 1.3 -Total Square (Post) (cm) 1.40 1.95 1.50 -Area of Debridement (cm) - Length 1.0 1.3 1.0 -Area of Debridement (cm) - Width 1.4 1.5 1.5 -Total Square (Area) (cm) 1.40 1.95 1.50 -Tunneling Yes No No -Tunneling Position (O'clock) 6 -Tunneling Distance (cm) 1.7 -Undermining/Tunneling No Yes -Undermining/Tunneling Starts (O'clock 11 ) -Undermining/Tunneling Ends (O'clock) 3 -Maximum Distance (cm) 1.6 -Circular Undermining No Yes No -Wound/Ulcer Outcome Not Healed Not Healed Not Healed -Ulcer Cleansing Rinsed/ Rinsed/ Rinsed/ Irrigated with Irrigated with Irrigated with Saline Saline Saline -Foul Odor after Cleansing No No No -Bioengineered Tissue No No No -Bleeding Controlled with Pressure Pressure Pressure -Treatment Response Procedure Procedure Procedure Tolerated Well Tolerated Well Tolerated Well -Debridement - Muscle / Fascia, 1st Yes Yes Yes 20sq cm Pain Scale: 0-10 Numeric Is Patient Pain Free? Yes Yes Yes - Nurse 3 - General Ulcer D/C NN Start: 02/04/24 13:09 Freq: Status: Active Protocol: Activity Type Activity Date Activity User E-sign Co-sign Detail Recorded Client Recorded Date Recorded By Document 02/04/24 14:00 RI [email or web address] 02/04/24 14:00 RI Document 02/18/24 14:08 [facility] [id number] 02/18/24 14:09 [facility] Document 02/25/24 13:52 [facility] [id number] 02/25/24 13:53 [facility] 02/04/24 02/18/24 02/25/24 14:00 14:08 13:52 Wound Care Center Nurse 3 1-Sacrum -Ulcer Cleansing Rinsed/ Rinsed/ Irrigated with Irrigated with Saline Saline -Foul Odor after Cleansing No No -Primary Dressing Applied Mepilex Border Mepilex Border Mepilex Border -Other Dressing DAKINS MOIST DAKINS MOIST GAUZE; DRSG PER GAUZE MT RN -Primary Dressing Covered/Secured with Dry Gauze, Secured with Tape -Mepilex Border 2 2 1 Treatment Response Procedure Procedure Tolerated Well Tolerated Well Pain Scale: 0-10 Numeric Is Patient Pain Free? Yes Yes Yes WC - Visit Discharge Discharge Condition Stable Stable Ambulatory Status Ambulatory Ambulatory Transportation Private Auto Private Auto Accompanied by Assessment/Plan Assessment/Plan (1) Pressure ulcer of sacral region, stage 4: CODE(S): L89.154 - Pressure ulcer of sacral region, stage 4 (2) Personal history of COVID-19: CODE(S): Z86.16 - Personal history of COVID-19 (3) History of acute respiratory failure: CODE(S): Z87.09 - Personal history of other diseases of the respiratory system (4) Stroke/cerebrovascular accident: CODE(S): I63.9 - Cerebral infarction, unspecified PLAN: Plan Wound care - [place] 0.25% moistened gauze covered with fluffed gauze and topped with ABD or [place] SAP daily. Continue to avoid sitting/lying on this area for any length of time. Patient is ambulatory. Prealbumin from 06/20/23 was 26.6. Encourage nutritional supplementation with protein to help the healing process. Operative cultures (soft tissue and bone) from 06/19/23 were negative. Pathology from 06/19/23 was negative for osteomyelitis. Wound culture obtained 08/12/23 was positive for Corynebacterium striatum and Anaerobic cocci. He was treated with Flagyl and finished them without problems. Wound culture obtained 02/18/24 which was positive for Corynebacterium striatum. It is considered a contaminant, no need for antibiotic therapy. Follow up 2 weeks.
== END 2024-02-29 23:59 | disposition home or self-care (01) ==
LOC: WC 13:00
PROVIDERS: PCP Family Medicine; Referring Provider Surgery; Visit Provider Nurse Practitioner Family
DX: L89.154 Pressure ulcer of sacral region, stage 4 (principal); Z86.16 Personal history of COVID-19; Z87.09 Personal history of other diseases of the respiratory system; Z86.73 Personal history of transient ischemic attack (TIA), and cerebral infarction without residual deficits
CPT/HCPCS: 11042; 11043; 87070; 87075; 87077; 87205

== ENCOUNTER 2024-03-17 13:00 | Outpatient (RCR) | payer MEDICARE, BC, SELFPAY ==
[2024-03-01 00:45] VITALS: BP 127/67; PULSE 69; RESP 20; TEMP 36.4
[2024-03-10 13:12] VITALS: BP 160/66; PULSE 66; RESP 16; TEMP 36.3
--- NOTE | 2024-03-10 14:31 | PN.PCM_ITS ---
History of Present Illness Date of Service: 03/10/24 Chief Complaint: Stage IV sacral ulcer History of Wound: Patient presents to wound care center today for evaluation and management of sacral pressure ulcer. This wound has been present for 1.5 years. It started when patient was hospitalized, on ventilator in ICU with COVID. It has significantly improved in size since then but has been stagnant in progress for some time now. He had been receiving wound care at the [place] wound center. He reports that it has never been cultured, he has never had imaging, and he has been following up in 2-month intervals with no debridement to between. His wound care has consisted Samaria and of otherwise leaving the wound open to air/covered with a thin layer of gauze. He has been instructed to keep it dry so he has been covering and taping over the area during showers. He is at this point frustrated with the lack of recent progress and decided to establish care here instead at the recommendation of a family friend. Surgery 06/19/23 - Excision sacral pressure sore, Stage IV, with partial o stectomy for osteomyelitis. Wound Care - Samaria. Operative culture soft tissue - negative. Operative culture bone - negative. Pathology - Reactive changes. Mild chronic inflammation and minimal acute inflammation. Prealbumin from 06/20/23 was 26.6. Encourage nutritional supplementation with protein to help the healing process. CT Pelvis was done on 03/18/23. It showed no sclerotic or destructive changes to suggest osteomyelitis. Recent wound culture on 08/12/23 was positive for Anaerobic cocci and Corynebacterium striatum. He was treated with Flagyl and has finished them. Today he denies fever. His appetite is good. Currently the patient does not want the ulcer excised and closed because of the need for total bed rest for 4-6 weeks Progress of Wound: Ulcer is stable. Ulcer bed is beefy pink. The bone is palpable but it is covered with granulation tissue. There is some undermining present from 11-3 o'clock. Mickie wound is clear. His states she is not having issues doing wound care. Objective Data Objective Data Vital Signs: Vital Signs Temp Pulse Resp BP O2 Del Method 97.4 F L 66 16 160/66 H Room Air 03/10/24 13:12 03/10/24 13:12 03/10/24 13:12 03/10/24 13:12 03/10/24 13:12 Oxygen Delivery Method Room Air Charges/Coding Procedures Integumentary 111xxx-113xx: [id number] Roxi musc/fascia 20 sq cm/< Debridement Note Debridement Note Wound debrided: #1 sacral ulcer Laterality: Not Applicable Wound Grade/Stage: IV. Type of Debridement: Excisional debridement Anesthesia Used: 5% Lidocaine Gel Depth: Down to and including healthy tissue, in the subcutaneous layer and to muscle Percentage of wound debrided: 100 Instrument Used: 5mm curette Tissue Removed: Non viable tissue and slough into the muscle. Severity: Fat Layer Exposed (muscle is exposed. bone is palpable but not exposed.) Amount of bleeding with debridement: Mild Bleeding Controlled with: Pressure and Compression and gauze Patient tolerated procedure: Patient tolerated procedure well Debridement Free Text: Bone palpable but covered with tissue. Post-Debridement Measurements and Additional Note: Post-Debridement Measurements/Treatment - Nurse 1 - General Ulcer Assessment Start: 03/10/24 13:12 Freq: Status: Active Protocol: DONNIE Activity Type Activity Date Activity User E-sign Co-sign Detail Recorded Client Recorded Date Recorded By Document 03/10/24 13:12 [facility] [email or web address] 03/10/24 13:16 [facility] 03/10/24 13:12 - Today's Visit Information Type of service Follow-up Visit (Physician/VICE PRESIDENT OF SOFTWARE DEVELOPMENT ) Arrival Mode Ambulatory Transfer Assistance None Accompanied by Patient Identification Verified (Name & Yes ) Patient Requires Transmission-Based No Precautions Vital Signs Temperature (97.8 F-99.1 F) 97.4 F L Temperature Source Temporal Pulse Rate (60-100) 66 Pulse Location Monitor Respiratory Rate (12-18) 16 Respiratory rate source Observation Oxygen Delivery Method Room Air Blood Pressure (90/60-120/80) 160/66 H Blood Pressure Mean (mm Hg) 97 Source Monitor Position Sitting Blood Pressure Location Left Arm History Since Last Visit- (Skip if this is Patient's initial visit) Have you changed medications since your No last visit? Any new allergies or adverse reactions No Had a fall/change in ADL's that may No increase risk of falls Signs or symptoms of abuse and/or No neglect since last visit Have you been in the hospital since your No last visit? Has dressing in place as prescribed Yes Has compression in place as prescribed N/A Has offloadiing in place as prescribed N/A Experienced any changes in pain level or No management Left Footwear Regular Shoe Right Footwear Regular Shoe Pain Scale: 0-10 Numeric Is Patient Pain Free? Yes - Nurse 1 - General Ulcer Measurement Start: 03/10/24 13:12 Freq: Status: Active Protocol: Activity Type Activity Date Activity User E-sign Co-sign Detail Recorded Client Recorded Date Recorded By Document 03/10/24 13:12 [facility] ..25.7 03/10/24 13:16 [facility] 03/10/24 13:12 Wound Center Nurse 1 1-Sacrum -Combined with other wound No -Current Size (cm) - Length 1 -Current Size (cm) - Width 0.7 -Current Size (cm) - Depth 2 -Total Square Cm 0.7 -Date of Last Picture (Recall this 03/10/24 field) -Photo Taken Yes -Exudate Amt Medium -Exudate Type Serosanguineous -Wound Margin Distinct, Outline Attached -Granulation Amt Large (67-100%) -Granulation Quality Red -Slough/Fibrin Yes -Necrosis Amt Small (1-33%) -Necrotic Tissue Type Adherent Slough -Texture (Mickie-wound Skin Appearance) Assessed, Scarring -Moisture (Mickie-wound Skin Appearance) Assessed -Color (Mickie-wound Skin Appearance) Assessed -Temperature (Mickie-wound Skin No Abnormality Appearance) (Pt Warm) -Tenderness on Palpation (Mickie-wound No Skin Appearance) -Ulcer Cleansing Rinsed/ Irrigated with Saline -Foul Odor after Cleansing No -Anesthetic Used 5% Lidocaine Gel - Nurse 2 - General Ulcer CM Notes Start: 03/10/24 13:12 Freq: Status: Active Protocol: Activity Type Activity Date Activity User E-sign Co-sign Detail Recorded Client Recorded Date Recorded By Document 03/10/24 13:31 [facility] 03/10/24 13:36 03/10/24 13:31 Wound Center Nurse 2 -Time 13:32 -Correct Patient Yes -Correct Side, Site, Position Yes -Correct Procedure Yes -Procedure Performed Yes -Type of Procedure Debridement -Clinical Debridement Muscle / Fascia -Tissue Removed Muscle -Post Debridement (cm) - Length 1.0 -Post Debridement (cm) - Width 1.3 -Post Debridement (cm) - Depth 1.5 -Total Square (Post) (cm) 1.30 -Area of Debridement (cm) - Length 1.0 -Area of Debridement (cm) - Width 1.3 -Total Square (Area) (cm) 1.30 -Tunneling No -Undermining/Tunneling Yes -Undermining/Tunneling Starts (O'clock 11 ) -Undermining/Tunneling Ends (O'clock) 3 -Maximum Distance (cm) 1.4 -Circular Undermining No -Wound/Ulcer Outcome Not Healed -Ulcer Cleansing Rinsed/ Irrigated with Saline -Foul Odor after Cleansing No -Bioengineered Tissue No -Bleeding Controlled with Pressure -Treatment Response Procedure Tolerated Well -Debridement - Muscle / Fascia, 1st Yes 20sq cm Pain Scale: 0-10 Numeric Is Patient Pain Free? Yes - Nurse 3 - General Ulcer D/C NN Start: 03/10/24 13:12 Freq: Status: Active Protocol: Activity Type Activity Date Activity User E-sign Co-sign Detail Recorded Client Recorded Date Recorded By Document 03/10/24 13:46 [facility] 10.10.25.7 03/10/24 13:48 [facility] 03/10/24 13:46 Wound Care Center Nurse 3 1-Sacrum -Ulcer Cleansing Rinsed/ Irrigated with Saline -Foul Odor after Cleansing No -Primary Dressing Applied Mepilex Border, [place] -Mepilex Border 1 -[place] 1 Treatment Response Procedure Tolerated Well Pain Scale: 0-10 Numeric Is Patient Pain Free? Yes - Visit Discharge Discharge Condition Stable Ambulatory Status Ambulatory Transportation Private Auto Assessment/Plan Assessment/Plan (1) Pressure ulcer of sacral region, stage 4: CODE(S): L89.154 - Pressure ulcer of sacral region, stage 4 (2) Personal history of COVID-19: CODE(S): Z86.16 - Personal history of COVID-19 (3) History of acute respiratory failure: CODE(S): Z87.09 - Personal history of other diseases of the respiratory system (4) Stroke/cerebrovascular accident: CODE(S): I63.9 - Cerebral infarction, unspecified PLAN: Plan Wound care -Switch to [place] covered with fluffed gauze and topped with ABD or [place] SAP daily. Continue to avoid sitting/lying on this area for any length of time. Patient is ambulatory. Prealbumin from 06/20/23 was 26.6. Encourage nutritional supplementation with protein to help the healing process. Operative cultures (soft tissue and bone) from 06/19/23 were negative. Pathology from 06/19/23 was negative for osteomyelitis. Wound culture obtained 08/12/23 was positive for Corynebacterium striatum and Anaerobic cocci. He was treated with Flagyl and finished them without problems. Wound culture obtained 02/18/24 which was positive for Corynebacterium striatum. It is considered a contaminant, no need for antibiotic therapy. Follow up 2 weeks.
[2024-03-17 13:30] VITALS: BP 132/68; PULSE 68; RESP 18; TEMP 36.6
--- NOTE | 2024-03-17 15:25 | PCM.WC.PN ---
History of Present Illness Date of Service: 03/17/24 Chief Complaint: Stage IV sacral ulcer History of Wound: Patient presents to wound care center today for evaluation and management of sacral pressure ulcer. This wound has been present for 1.5 years. It started when patient was hospitalized, on ventilator in ICU with COVID. It has significantly improved in size since then but has been stagnant in progress for some time now. He had been receiving wound care at the [place] wound center. He reports that it has never been cultured, he has never had imaging, and he has been following up in 2-month intervals with no debridement to between. His wound care has consisted Samaria and of otherwise leaving the wound open to air/covered with a thin layer of gauze. He has been instructed to keep it dry so he has been covering and taping over the area during showers. He is at this point frustrated with the lack of recent progress and decided to establish care here instead at the recommendation of a family friend. Surgery 06/19/23 - Excision sacral pressure sore, Stage IV, with partial ostectomy for osteomyelitis. Wound Care - Samaria. Operative culture soft tissue - negative. Operative culture bone - negative. Pathology - Reactive changes. Mild chronic inflammation and minimal acute inflammation. Prealbumin from 06/20/23 was 26.6. Encourage nutritional supplementation with protein to help the healing process. CT Pelvis was done on 03/18/23. It showed no sclerotic or destructive changes to suggest osteomyelitis. Recent wound culture on 08/12/23 was positive for Anaerobic cocci and Corynebacterium striatum. He was treated with Flagyl and has finished them. Today he denies fever. His appetite is good. Currently the patient does not want the ulcer excised and closed because of the need for total bed rest for 4-6 weeks Progress of Wound: Ulcer is stable. Ulcer bed is beefy pink. The bone is palpable but it is covered with granulation tissue. There is some undermining present from 11-3 o'clock, which appears to have less depth. Mickie wound is clear. His states she is not having issues doing wound care. Objective Data Objective Data Vital Signs: Vital Signs Temp Pulse Resp BP O2 Del Method 97.8 F 68 18 132/68 H Room Air 03/17/24 13:30 03/17/24 13:30 03/17/24 13:30 03/17/24 13:30 03/10/24 13:12 Oxygen Delivery Method Room Air Charges/Coding Procedures Integumentary [id number]: 76691 Roxi musc/fascia 20 sq cm/< Debridement Note Debridement Note Wound debrided: #1 sacral ulcer Laterality: Not Applicable Wound Grade/Stage: IV. Type of Debridement: Excisional debridement Anesthesia Used: 5% Lidocaine Gel Depth: Down to and including healthy tissue, in the subcutaneous layer and to muscle Percentage of wound debrided: 100 Instrument Used: 5mm curette Tissue Removed: Non viable tissue and slough into the muscle. Severity: Fat Layer Exposed (muscle is exposed. bone is palpable but not exposed.) Amount of bleeding with debridement: Mild Bleeding Controlled with: Pressure and Compression and gauze Patient tolerated procedure: Patient tolerated procedure well Debridement Free Text: Bone palpable but covered with tissue. 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 (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/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 ) ) Arrival Mode Ambulatory Ambulatory Transfer Assistance None None Accompanied by Patient Identification Verified (Name & Yes Yes ) Patient Requires Transmission-Based No No Precautions Vital Signs Temperature (97.8 F-99.1 F) 97.4 F L 97.8 F Temperature Source Temporal Temporal Pulse Rate (60-100) 66 68 Pulse Location Monitor Monitor Respiratory Rate (12-18) 16 18 Respiratory rate source Observation Observation Oxygen Delivery Method Room Air Blood Pressure (90/60-120/80) 160/66 H 132/68 H Blood Pressure Mean (mm Hg) 97 89 Source Monitor Monitor Position Sitting Supine Blood Pressure Location Left Arm Left Arm History Since Last Visit- (Skip if this is Patient's initial visit) Have you changed medications since your No No last visit? Any new allergies or adverse reactions No No Had a fall/change in ADL's that may No No increase risk of falls Signs or symptoms of abuse and/or No No neglect since last visit Have you been in the hospital since your No No last visit? Has dressing in place as prescribed Yes Yes Has compression in place as prescribed N/A No Has offloadiing in place as prescribed N/A No Experienced any changes in pain level or No No management Left Footwear Regular Shoe Right Footwear Regular Shoe Pain Scale: 0-10 Numeric Is Patient Pain Free? Yes Yes WC - Nurse 1 - General Ulcer Measurement Start: 03/10/24 13:12 Freq: Status: Active Protocol: Activity Type Activity Date Activity User E-sign Co-sign Detail Recorded Client Recorded Date Recorded By Document 03/10/24 13:12 [facility] ..25.7 03/10/24 13:16 BM Document 03/17/24 13:30 RB WOUND 03/17/24 13:32 RB 03/10/24 03/17/24 13:12 13:30 Wound Center Nurse 1 1-Sacrum -Combined with other wound No No -Current Size (cm) - Length 1 1.2 -Current Size (cm) - Width 0.7 1 -Current Size (cm) - Depth 2 1.2 -Total Square Cm 0.7 1.2 -Date of Last Picture (Recall this 03/10/24 field) -Photo Taken Yes -Tunneling No -Undermining/Tunneling Yes -Undermining/Tunneling Starts (O'clock 12 ) -Undermining/Tunneling Ends (O'clock) 12 -Maximum Distance (cm) 1.7 -Circular Undermining Yes -Exudate Amt Medium Medium -Exudate Type Serosanguineous Serosanguineous -Wound Margin Distinct, Thickened & Outline Rolled Under Attached -Granulation Amt Large (67-100%) Medium (34-66%) -Granulation Quality Red [place] -Slough/Fibrin Yes Yes -Necrosis Amt Small (1-33%) Medium (34-66%) -Necrotic Tissue Type Adherent Slough Adherent Slough -Structure Exposed Bone -Texture (Mickie-wound Skin Appearance) Assessed, Assessed, Scarring Scarring -Moisture (Mickie-wound Skin Appearance) Assessed Assessed -Color (Mickie-wound Skin Appearance) Assessed Assessed -Temperature (Mickie-wound Skin No Abnormality No Abnormality Appearance) (Pt Warm) (Pt Warm) -Tenderness on Palpation (Mickie-wound No No Skin Appearance) -Ulcer Cleansing Rinsed/ Wound Cleanser Irrigated with Saline -Foul Odor after Cleansing No No -Anesthetic Used 5% Lidocaine 5% Lidocaine Gel Gel - Nurse 2 - General Ulcer CM Notes Start: 03/10/24 13:12 Freq: Status: Active Protocol: Activity Type Activity Date Activity User E-sign Co-sign Detail Recorded Client Recorded Date Recorded By Document 03/10/24 13:31 [facility] 03/10/24 13:36 Document 03/17/24 14:15 [facility] [email or web address] 03/17/24 14:18 [facility] 03/10/24 03/17/24 13:31 14:15 Wound Center Nurse 2 1-Sacrum -Time 13:32 14:15 -Correct Patient Yes Yes -Correct Side, Site, Position Yes Yes -Correct Procedure Yes Yes -Procedure Performed Yes Yes -Type of Procedure Debridement Debridement -Clinical Debridement Muscle / Fascia Muscle / Fascia -Tissue Removed Muscle Muscle -Post Debridement (cm) - Length 1.0 1 -Post Debridement (cm) - Width 1.3 1.5 -Post Debridement (cm) - Depth 1.5 1.5 -Total Square (Post) (cm) 1.30 1.5 -Area of Debridement (cm) - Length 1.0 1 -Area of Debridement (cm) - Width 1.3 1.5 -Total Square (Area) (cm) 1.30 1.5 -Tunneling No -Undermining/Tunneling Yes Yes -Undermining/Tunneling Starts (O'clock 11 2 ) -Undermining/Tunneling Ends (O'clock) 3 2 -Maximum Distance (cm) 1.4 1.2 -Circular Undermining No No -Wound/Ulcer Outcome Not Healed Not Healed -Ulcer Cleansing Rinsed/ Rinsed/ Irrigated with Irrigated with Saline Saline -Foul Odor after Cleansing No No -Bioengineered Tissue No No -Bleeding Controlled with Pressure Pressure -Treatment Response Procedure Procedure Tolerated Well Tolerated Well -Debridement - Muscle / Fascia, 1st Yes Yes 20sq cm Pain Scale: 0-10 Numeric Is Patient Pain Free? Yes Yes KARIE - Nurse 3 - General Ulcer D/C NN Start: 03/10/24 13:12 Freq: Status: Active Protocol: Activity Type Activity Date Activity User E-sign Co-sign Detail Recorded Client Recorded Date Recorded By Document 03/10/24 13:46 [facility] [email or web address] 03/10/24 13:48 [facility] Document 03/17/24 14:30 RB WOUND 03/17/24 14:31 RB 03/10/24 03/17/24 13:46 14:30 Wound Care Center Nurse 3 1-Sacrum -Ulcer Cleansing Rinsed/ Rinsed/ Irrigated with Irrigated with Saline Saline -Foul Odor after Cleansing No -Primary Dressing Applied Mepilex Border, Mepilex Border, Silvercel Silvercel -Mepilex Border 1 1 -Silvercel 1 1 Treatment Response Procedure Procedure Tolerated Well Tolerated Well Pain Scale: 0-10 Numeric Is Patient Pain Free? Yes Yes WC - Visit Discharge Discharge Condition Stable Stable Ambulatory Status Ambulatory Ambulatory Transportation Private Auto Private Auto Medication Reconcilliation completed & No provided to patient/care provider Clinical Summary of Care Provided Yes Assessment/Plan Assessment/Plan (1) Pressure ulcer of sacral region, stage 4: CODE(S): L89.154 - Pressure ulcer of sacral region, stage 4 (2) Personal history of COVID-19: CODE(S): Z86.16 - Personal history of COVID-19 (3) History of acute respiratory failure: CODE(S): Z87.09 - Personal history of other diseases of the respiratory system (4) Stroke/cerebrovascular accident: CODE(S): I63.9 - Cerebral infarction, unspecified PLAN: Plan Wound care - Silvercel covered with fluffed gauze and topped with ABD or [place] SAP daily. Continue to avoid sitting/lying on this area for any length of time. Patient is ambulatory. Prealbumin from 06/20/23 was 26.6. Encourage nutritional supplementation with protein to help the healing process. Operative cultures (soft tissue and bone) from 06/19/23 were negative. Pathology from 06/19/23 was negative for osteomyelitis. Wound culture obtained 08/12/23 was positive for Corynebacterium striatum and Anaerobic cocci. He was treated with Flagyl and finished them without problems. Wound culture obtained 02/18/24 which was positive for Corynebacterium striatum. It is considered a contaminant, no need for antibiotic therapy. Encouraged protein supplementation with Shravan to help with wound healing. Follow up 2 weeks.
== END 2024-03-31 23:59 | disposition home or self-care (01) ==
LOC: WC 13:00
PROVIDERS: PCP Family Medicine; Referring Provider Surgery; Visit Provider Nurse Practitioner Family
DX: L89.154 Pressure ulcer of sacral region, stage 4 (principal); Z86.16 Personal history of COVID-19; Z86.73 Personal history of transient ischemic attack (TIA), and cerebral infarction without residual deficits; Z87.09 Personal history of other diseases of the respiratory system
CPT/HCPCS: 11043

== ENCOUNTER 2024-04-26 15:00 | Outpatient (RCR) | payer MEDICARE, BC, SELFPAY ==
[2024-04-01 00:23] VITALS: BP 127/67; PULSE 69; RESP 20; TEMP 36.4
[2024-04-05 11:56] VITALS: BP 141/62; PULSE 67; RESP 20; TEMP 36.4
--- NOTE | 2024-04-05 17:36 | PCM.WC.PN ---
History of Present Illness Date of Service: 04/05/24 Chief Complaint: Stage IV sacral ulcer History of Wound: Patient presents to wound care center today for evaluation and management of sacral pressure ulcer. This wound has been present for 1.5 years. It started when patient was hospitalized, on ventilator in ICU with COVID. It has significantly improved in size since then but has been stagnant in progress for some time now. He had been receiving wound care at the [place] wound center. He reports that it has never been cultured, he has never had imaging, and he has been following up in 2-month intervals with no debridement to between. His wound care has consisted Samaria and of otherwise leaving the wound open to air/covered with a thin layer of gauze. He has been instructed to keep it dry so he has been covering and taping over the area during showers. He is at this point frustrated with the lack of recent progress and decided to establish care here instead at the recommendation of a family friend. Surgery 06/19/23 - Excision sacral pressure sore, Stage IV, with partial ostectomy for osteomyelitis. Wound Care - Samaria. Operative culture soft tissue - negative. Operative culture bone - negative. Pathology - Reactive changes. Mild chronic inflammation and minimal acute inflammation. Prealbumin from 06/20/23 was 26.6. Encourage nutritional supplementation with protein to help the healing process. CT Pelvis was done on 03/18/23. It showed no sclerotic or destructive changes to suggest osteomyelitis. Recent wound culture on 08/12/23 was positive for Anaerobic cocci and Corynebacterium striatum. He was treated with Flagyl and has finished them. Today he denies fever. His appetite is good. Currently the patient does not want the ulcer excised and closed because of the need for total bed rest for 4-6 weeks Progress of Wound: Ulcer bed is beefy pink. It is deeper today. Palpating bone. Mickie wound is clear. His states she is not having issues doing wound care. Since the ulcer is deeper, wound culture was obtained today.? A positive culture will necessitate antibiotic therapy. Objective Data Objective Data Vital Signs: Vital Signs Temp Pulse Resp BP 97.6 F L 67 20 H 141/62 H 04/05/24 11:56 04/05/24 11:56 04/05/24 11:56 04/05/24 11:56 Charges/Coding Procedures Integumentary 111xxx-113xx: [id number] Roxi musc/fascia 20 sq cm/< Debridement Note Debridement Note Wound debrided: #1 sacral ulcer Laterality: Not Applicable Wound Grade/Stage: IV. Type of Debridement: Excisional debridement Anesthesia Used: 5% Lidocaine Gel Depth: Down to and including healthy tissue, in the subcutaneous layer and to muscle Percentage of wound debrided: 100 Instrument Used: 5mm curette Tissue Removed: Non viable tissue and slough into the muscle. Severity: Fat Layer Exposed (muscle is exposed. bone is palpable but not exposed.) Amount of bleeding with debridement: Mild Bleeding Controlled with: Pressure and Compression and gauze Patient tolerated procedure: Patient tolerated procedure well Debridement Free Text: Bone palpable Post-Debridement Measurements and Additional Note: Post-Debridement Measurements/Treatment - Nurse 1 - General Ulcer Assessment Start: 04/05/24 11:56 Freq: Status: Active Protocol: [email or web address] Activity Type Activity Date Activity User E-sign Co-sign Detail Recorded Client Recorded Date Recorded By Document 04/05/24 11:56 DL [email or web address] 04/05/24 12:02 DL 04/05/24 11:56 WC - Today's Visit Information Type of service Follow-up 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 Any new allergies or adverse reactions No Had a fall/change in ADL's that may No increase risk of falls Signs or symptoms of abuse and/or No neglect since last visit Have you been in the hospital since your No last visit? Has dressing in place as prescribed Yes Has compression in place as prescribed N/A Has offloadiing in place as prescribed Yes Experienced any changes in pain level or No management Pain Scale: 0-10 Numeric Is Patient Pain Free? Yes - Nurse 1 - General Ulcer Measurement Start: 04/05/24 11:56 Freq: Status: Active Protocol: Activity Type Activity Date Activity User E-sign Co-sign Detail Recorded Client Recorded Date Recorded By Document 04/05/24 11:56 DL [email or web address] 04/05/24 12:02 DL 04/05/24 11:56 Wound Center Nurse 1 1-Sacrum -Current Size (cm) - Length 1 -Current Size (cm) - Width 1 -Current Size (cm) - Depth 1.6 -Total Square Cm 1 -Exudate Amt Medium -Exudate Type Serosanguineous -Wound Margin Distinct, Outline Attached -Granulation Amt Medium (34-66%) -Granulation Quality Red -Necrosis Amt Medium (34-66%) -Necrotic Tissue Type Adherent Slough -Structure Exposed N/A -Texture (Mickie-wound Skin Appearance) Scarring -Moisture (Mickie-wound Skin Appearance) No Abnormality -Color (Mickie-wound Skin Appearance) No Abnormality -Temperature (Mickie-wound Skin No Abnormality Appearance) (Pt Warm) -Tenderness on Palpation (Mickie-wound No Skin Appearance) -Ulcer Cleansing Soap and Water -Foul Odor after Cleansing No -Anesthetic Used 5% Lidocaine Gel WC - Nurse 2 - General Ulcer CM Notes Start: 04/05/24 11:56 Freq: Status: Active Protocol: Activity Type Activity Date Activity User E-sign Co-sign Detail Recorded Client Recorded Date Recorded By Document 04/05/24 12:20 JF 0000 04/05/24 12:28 JF 04/05/24 12:20 Wound Center Nurse 2 -Time 12:21 -Correct Patient Yes -Correct Side, Site, Position Yes -Correct Procedure Yes -Procedure Performed Yes -Type of Procedure Debridement -Clinical Debridement Muscle / Fascia -Tissue Removed Muscle,Fascia -Post Debridement (cm) - Length 1.0 -Post Debridement (cm) - Width 1.0 -Post Debridement (cm) - Depth 1.3 -Total Square (Post) (cm) 1.00 -Area of Debridement (cm) - Length 1.0 -Area of Debridement (cm) - Width 1.0 -Total Square (Area) (cm) 1.00 -Tunneling No -Undermining/Tunneling No -Circular Undermining No -Wound/Ulcer Outcome Not Healed -Ulcer Cleansing Rinsed/ Irrigated with Saline -Foul Odor after Cleansing No -Bioengineered Tissue No -Bleeding Controlled with Pressure -Treatment Response Procedure Tolerated Well -Offloading No -Debridement - Muscle / Fascia, 1st Yes 20sq cm Pain Scale: 0-10 Numeric Is Patient Pain Free? Yes - Nurse 3 - General Ulcer D/C NN Start: 04/05/24 11:56 Freq: Status: Active Protocol: Activity Type Activity Date Activity User E-sign Co-sign Detail Recorded Client Recorded Date Recorded By Document 04/05/24 12:34 KW fghj 04/05/24 12:35 KW 04/05/24 12:34 Wound Care Center Nurse 3 1-Sacrum -Ulcer Cleansing Rinsed/ Irrigated with Saline -Foul Odor after Cleansing No -Other Dressing DAKINS -Primary Dressing Covered/Secured with Dry Gauze, Secured with Tape Treatment Response Procedure Tolerated Well Pain Scale: 0-10 Numeric Is Patient Pain Free? Yes - Visit Discharge Discharge Condition Stable Ambulatory Status Ambulatory Transportation Private Auto Notes: Dressing appllied today per [place]. Assessment/Plan Assessment/Plan (1) Pressure ulcer of sacral region, stage 4: CODE(S): L89.154 - Pressure ulcer of sacral region, stage 4 (2) Personal history of COVID-19: CODE(S): Z86.16 - Personal history of COVID-19 (3) History of acute respiratory failure: CODE(S): Z87.09 - Personal history of other diseases of the respiratory system (4) Stroke/cerebrovascular accident: CODE(S): I63.9 - Cerebral infarction, unspecified PLAN: Plan Wound care - Change to Dakin's 0.25% moistened gauze, covered with ABD daily. Wash ulcer with soap and water at the time of the dressing change. Continue to avoid sitting/lying on this area for any length of time. Patient is ambulatory. Prealbumin from 06/20/23 was 26.6. Encourage nutritional supplementation with protein to help the healing process. Operative cultures (soft tissue and bone) from 06/19/23 were negative. Pathology from 06/19/23 was negative for osteomyelitis. Wound culture obtained 08/12/23 was positive for Corynebacterium striatum and Anaerobic cocci. He was treated with Flagyl and finished them without problems. Wound culture obtained 02/18/24 which was positive for Corynebacterium striatum. It is considered a contaminant, no need for antibiotic therapy. A wound culture was obtained today, 04/05/24.? A positive culture will necessitate antibiotic therapy. Encouraged protein supplementation with Shravan to help with wound healing. Follow up 1 week. I would like to have him evaluated by Dr. Cortes to discuss further options for treating/managing this ulcer.
[2024-04-12 10:59] VITALS: BP 128/60; PULSE 66; RESP 18
--- NOTE | 2024-04-12 13:17 | PN.PCM_ITS ---
History of Present Illness Date of Service: 04/12/24 Chief Complaint: Stage IV sacral ulcer History of Wound: Patient presents to wound care center today for evaluation and management of sacral pressure ulcer. This wound has been present for 1.5 years. It started when patient was hospitalized, on ventilator in ICU with COVID. It has significantly improved in size since then but has been stagnant in progress for some time now. He had been receiving wound care at the [place] wound center. He reports that it has never been cultured, he has never had imaging, and he has been following up in 2-month intervals with no debridement to between. His wound care has consisted Samaria and of otherwise leaving the wound open to air/covered with a thin layer of gauze. He has been instructed to keep it dry so he has been covering and taping over the area during showers. He is at this point frustrated with the lack of recent progress and decided to establish care here instead at the recommendation of a family friend. Surgery 06/19/23 - Excision sacral pressure sore, Stage IV, with partial o stectomy for osteomyelitis. Wound Care - Samaria. Operative culture soft tissue - negative. Operative culture bone - negative. Pathology - Reactive changes. Mild chronic inflammation and minimal acute inflammation. Prealbumin from 06/20/23 was 26.6. Encourage nutritional supplementation with protein to help the healing process. CT Pelvis was done on 03/18/23. It showed no sclerotic or destructive changes to suggest osteomyelitis. Wound culture on 08/12/23 was positive for Anaerobic cocci and Corynebacterium striatum. He was treated with Flagyl and has finished them. Wound culture from 04/05/24 positive for MSSE, Corynebacterium striatum and Anaerobic cocci. Will start him on Augmentin. Today he denies fever. His appetite is good. Currently the patient does not want the ulcer excised and closed because of the need for total bed rest for 4-6 weeks Progress of Wound: Ulcer bed is beefy pink. Opening is slightly smaller. Palpating bone. Mickie wound is clear. Wound culture positive for MSSE, Corynebacterium striatum and Anaerobic cocci. Will start him on Augmentin. Objective Data Objective Data Vital Signs: Vital Signs Temp Pulse Resp BP O2 Del Method 97.6 F L 66 18 128/60 H Room Air 04/05/24 11:56 04/12/24 10:59 04/12/24 10:59 04/12/24 10:59 04/12/24 10:59 Oxygen Delivery Method Room Air Lab / Micro Data Micro: Microbiology 04/05/24 12:26 Ulcer, Decubitus - Other Gram Stain - Final 04/05/24 12:26 Ulcer, Decubitus - Other Wound Culture - Final Corynebacterium striatum Staphylococcus epidermidis 04/05/24 12:26 Ulcer, Decubitus - Other Anaerobic Culture - Final Anaerobic cocci Charges/Coding Procedures Integumentary [id number]: [id number] Roxi musc/fascia 20 sq cm/< Debridement Note Debridement Note Wound debrided: #1 sacral ulcer Laterality: Not Applicable Wound Grade/Stage: IV. Type of Debridement: Excisional debridement Anesthesia Used: 5% Lidocaine Gel Depth: Down to and including healthy tissue, in the subcutaneous layer and to muscle Percentage of wound debrided: 100 Instrument Used: 5mm curette Tissue Removed: Non viable tissue and slough into the muscle. Severity: Fat Layer Exposed (muscle is exposed. bone is palpable but not exposed.) Amount of bleeding with debridement: Mild Bleeding Controlled with: Pressure and Compression and gauze Patient tolerated procedure: Patient tolerated procedure well Debridement Free Text: Bone palpable Post-Debridement Measurements and Additional Note: Post-Debridement Measurements/Treatment - Nurse 1 - General Ulcer Assessment Start: 04/05/24 11:56 Freq: Status: Active Protocol: [email or web address] Activity Type Activity Date Activity User E-sign Co-sign Detail Recorded Client Recorded Date Recorded By Document 04/05/24 11:56 DL [email or web address] 04/05/24 12:02 DL Document 04/12/24 10:59 KW ][ 04/12/24 11:04 KW 04/05/24 04/12/24 11:56 10:59 - Today's Visit Information Type of service Follow-up Visit Follow-up Visit (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/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 (Physician/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 ) ) Arrival Mode Ambulatory Ambulatory Transfer Assistance None Patient Identification Verified (Name & Yes Yes ) Patient Requires Transmission-Based No Precautions Vital Signs Temperature (97.8 F-99.1 F) 97.6 F L Temperature Source Temporal Temporal Pulse Rate (60-100) 67 66 Pulse Location Monitor Monitor Respiratory Rate (12-18) 20 H 18 Respiratory rate source Observation Observation Oxygen Delivery Method Room Air Blood Pressure (90/60-120/80) 141/62 H 128/60 H Blood Pressure Mean (mm Hg) 88 82 Source Monitor Monitor Position Semi-Fowlers Blood Pressure Location Left Arm History Since Last Visit- (Skip if this is Patient's initial visit) Have you changed medications since your No No last visit? Any new allergies or adverse reactions No No Had a fall/change in ADL's that may No No increase risk of falls Signs or symptoms of abuse and/or No No neglect since last visit Have you been in the hospital since your No No last visit? Has dressing in place as prescribed Yes Yes Has compression in place as prescribed N/A N/A Has offloadiing in place as prescribed Yes N/A Experienced any changes in pain level or No No management Left Footwear Regular Shoe Right Footwear Regular Shoe Pain Scale: 0-10 Numeric Is Patient Pain Free? Yes Yes WC - Nurse 1 - General Ulcer Measurement Start: 04/05/24 11:56 Freq: Status: Active Protocol: Activity Type Activity Date Activity User E-sign Co-sign Detail Recorded Client Recorded Date Recorded By Document 04/05/24 11:56 DL [email or web address] 04/05/24 12:02 DL Document 04/12/24 10:59 KW ][ 04/12/24 11:04 KW 04/05/24 04/12/24 11:56 10:59 Wound Center Nurse 1 1-Sacrum -Current Size (cm) - Length 1 0.9 -Current Size (cm) - Width 1 0.9 -Current Size (cm) - Depth 1.6 1.8 -Total Square Cm 1 0.81 -Date of Last Picture (Recall this 04/12/24 field) -Exudate Amt Medium Small -Exudate Type Serosanguineous Serosanguineous -Wound Margin Distinct, Distinct, Outline Outline Attached Attached -Granulation Amt Medium (34-66%) Large (67-100%) -Granulation Quality Red Alba,Red -Necrosis Amt Medium (34-66%) Small (1-33%) -Necrotic Tissue Type Adherent Slough Adherent Slough -Structure Exposed N/A -Texture (Mickie-wound Skin Appearance) Scarring Assessed, Scarring -Moisture (Mickie-wound Skin Appearance) No Abnormality Assessed -Color (Mickie-wound Skin Appearance) No Abnormality Assessed -Temperature (Mickie-wound Skin No Abnormality No Abnormality Appearance) (Pt Warm) (Pt Warm) -Tenderness on Palpation (Mickie-wound No No Skin Appearance) -Ulcer Cleansing Soap and Water Rinsed/ Irrigated with Saline -Foul Odor after Cleansing No No -Anesthetic Used 5% Lidocaine 5% Lidocaine Gel Gel - Nurse 2 - General Ulcer CM Notes Start: 04/05/24 11:56 Freq: Status: Active Protocol: Activity Type Activity Date Activity User E-sign Co-sign Detail Recorded Client Recorded Date Recorded By Document 04/05/24 12:20 0000 04/05/24 12:28 Document 04/12/24 11:17 0000 04/12/24 11:21 04/05/24 04/12/24 12:20 11:17 Wound Center Nurse 2 1-Sacrum -Time 12:21 11:18 -Correct Patient Yes Yes -Correct Side, Site, Position Yes Yes -Correct Procedure Yes Yes -Procedure Performed Yes Yes -Type of Procedure Debridement Debridement -Clinical Debridement Muscle / Fascia Muscle / Fascia -Tissue Removed Muscle,Fascia Muscle,Fascia -Post Debridement (cm) - Length 1.0 1.5 -Post Debridement (cm) - Width 1.0 1.0 -Post Debridement (cm) - Depth 1.3 1.5 -Total Square (Post) (cm) 1.00 1.50 -Area of Debridement (cm) - Length 1.0 1.5 -Area of Debridement (cm) - Width 1.0 1.0 -Total Square (Area) (cm) 1.00 1.50 -Tunneling No No -Undermining/Tunneling No Yes -Undermining/Tunneling Starts (O'clock 12 ) -Maximum Distance (cm) 1.4 -Circular Undermining No Yes -Wound/Ulcer Outcome Not Healed Not Healed -Ulcer Cleansing Rinsed/ Rinsed/ Irrigated with Irrigated with Saline Saline -Foul Odor after Cleansing No No -Bioengineered Tissue No No -Bleeding Controlled with Pressure Pressure -Treatment Response Procedure Procedure Tolerated Well Tolerated Well -Offloading No No -Debridement - Muscle / Fascia, 1st Yes Yes 20sq cm Pain Scale: 0-10 Numeric Is Patient Pain Free? Yes Yes KARIE - Nurse 3 - General Ulcer D/C NN Start: 04/05/24 11:56 Freq: Status: Active Protocol: Activity Type Activity Date Activity User E-sign Co-sign Detail Recorded Client Recorded Date Recorded By Document 04/05/24 12:34 [email or web address] 04/05/24 12:35 Document 04/12/24 11:27 [facility] [email or web address] 04/12/24 11:28 [facility] 04/05/24 04/12/24 12:34 11:27 Wound Care Center Nurse 3 1-Sacrum -Ulcer Cleansing Rinsed/ Rinsed/ Irrigated with Irrigated with Saline Saline -Foul Odor after Cleansing No No -Other Dressing DAKINS dakins moist gauze -Primary Dressing Covered/Secured with Dry Gauze, Dry Gauze, Secured with Secured with Tape Tape -Other Covering abd Treatment Response Procedure Procedure Tolerated Well Tolerated Well Pain Scale: 0-10 Numeric Is Patient Pain Free? Yes Yes WC - Visit Discharge Discharge Condition Stable Stable Ambulatory Status Ambulatory Ambulatory Transportation Private Auto Private Auto Accompanied by Notes: Dressing appllied today per [place] Reed. Assessment/Plan Assessment/Plan (1) Pressure ulcer of sacral region, stage 4: CODE(S): L89.154 - Pressure ulcer of sacral region, stage 4 (2) Personal history of COVID-19: CODE(S): Z86.16 - Personal history of COVID-19 (3) History of acute respiratory failure: CODE(S): Z87.09 - Personal history of other diseases of the respiratory system (4) Stroke/cerebrovascular accident: CODE(S): I63.9 - Cerebral infarction, unspecified PLAN: Plan Wound care - Change to Dakin's 0.25% moistened gauze, covered with ABD daily. Wash ulcer with soap and water at the time of the dressing change. Continue to avoid sitting/lying on this area for any length of time. Patient is ambulatory. Prealbumin from 06/20/23 was 26.6. Encourage nutritional supplementation with protein to help the healing process. Operative cultures (soft tissue and bone) from 06/19/23 were negative. Pathology from 06/19/23 was negative for osteomyelitis. Wound culture obtained 08/12/23 was positive for Corynebacterium striatum and Anaerobic cocci. He was treated with Flagyl and finished them without problems. Wound culture obtained 02/18/24 which was positive for Corynebacterium striatum. It is considered a contaminant, no need for antibiotic therapy. A wound culture was obtained 04/05/24.?It was positive for MSSE, Corynebacterium striatum and Anaerobic cocci. Will start him on Augmentin. Encouraged protein supplementation with Shravan to help with wound healing. Follow up [address] Cortes.
[2024-04-19 14:30] VITALS: BP 154/65; PULSE 71; RESP 18; TEMP 36.3
--- NOTE | 2024-04-19 16:36 | PCM.WC.PN ---
History of Present Illness Date of Service: 04/19/24 Chief Complaint: Stage IV sacral ulcer History of Wound: Clive Wilson is a 68-year-old male with a 2-year history of a sacral wound that started when patient was hospitalized, on ventilator in ICU with COVID. It has significantly improved in size since then but has been stagnant in progress for some time now per report from other providers at the wound care center. He he was for some time receiving wound care at the [place] [facility] (patient lives in [place] which is near [place] and [place], about 45 minutes away), but switched to [facility] last summer. At this time, wound cultures were obtained on 04/05/24 positive for MSSE, Corynebacterium striatum and Anaerobic cocci, which were treated with a course of Augmentin. The previous plastic surgeon or wound care center, Dr. Cagle, performed the following surgery last fall: Surgery 06/19/23 - Excision sacral pressure sore, Stage IV, with partial ostectomy for osteomyelitis. Cultures from the OR were negative for osteomyelitis (sacral bone culture was performed). Pathology of the bone specimen showed reactive changes with mild chronic inflammation and minimal acute inflammation that was not specific for osteomyelitis. A CT pelvis done around the same time did not show any sclerotic or destructive changes of the sacrum. He has since been following up in the wound care center with us for approximately bimonthly debridements and wound care. He has been doing Dakin's wet to dry dressings twice daily. He reports that for some time the wound was getting smaller, but that several months ago it became about the size it is now and it has not healed since then. His reports that he has been pressure offloading it intermittently, and most of the time not laying on it. Today in the office visit we talked about not laying on the wound extensively. We talked about positioning changes, and the negative impacts of pressure on the wound. He does not have in her bed. The rn field case manager was working on one for him but it was denied because of insurance reasons. Patient does not smoke. He does not use smokeless tobacco and he does not drink. Patient has a history of hypertension which is controlled on multiple blood pressure medicines. Patient does have a history of a pulmonary embolism, but this was related to his COVID hospitalization (several months hospitalization). He is not on any oxygen anymore. He finished his 6-month course of blood thinner and is no longer on any blood thinner. Subjective Subjective CURRENT ENCOUNTER, 19 April 2024: no recent chest pain or racing heart. Denies fevers or chills today. His is also concerned about a lesion on his lower back that is pigmented and changing. He and his would like to get this wound healed and are sick of wound care. Objective Data Objective Data Vital Signs: Vital Signs Temp Pulse Resp BP O2 Del Method 97.3 F L 71 18 154/65 H Room Air 04/19/24 14:30 04/19/24 14:30 04/19/24 14:30 04/19/24 14:30 04/19/24 14:30 Oxygen Delivery Method Room Air Lab / Micro Data Micro: Microbiology 04/05/24 12:26 Ulcer, Decubitus - Other Gram Stain - Final 04/05/24 12:26 Ulcer, Decubitus - Other Wound Culture - Final Corynebacterium striatum Staphylococcus epidermidis 04/05/24 12:26 Ulcer, Decubitus - Other Anaerobic Culture - Final Anaerobic cocci Charges/Coding Procedures Integumentary [id number]: Other Procedure See Report ([id number] (for office debridement). No charge for the appointment today because established patient. ) Physical Exam Narrative Posterior trunk examination Small pigmented lesion approximately 1 x 1 cm below the right lower quadrant of the back that has irregular borders and multiple colors. Sacral wound is 0.8 x 0.9 cm and 1.7 cm deep with exposed bone/presacral fascia at the base. No purulent drainage. Minimal tunneling. There is redness around the edges of the wound/inflammation. Within the wound there was significant biofilm and exudate. Const alert and oriented x3 HEENT normocephalic Eyes PERRL Lymph Lymphatic: no lymphadenopathy noted Resp normal respiratory effort and clear to auscultation bilaterally Cardio regular rate and regular rhythm GI non-distended Extremity no clubbing, cyanosis or edema Skin no rashes or lesions noted Psych affect normal Debridement Note Debridement Note Post-Debridement Measurements and Additional Note: Post-Debridement Measurements/Treatment KARIE - Nurse 1 - General Ulcer Assessment Start: 04/05/24 11:56 Freq: Status: Active Protocol: DONNIE Activity Type Activity Date Activity User E-sign Co-sign Detail Recorded Client Recorded Date Recorded By Document 04/05/24 11:56 DL 10.10.25.7 04/05/24 12:02 DL Document 04/12/24 10:59 KW ][ 04/12/24 11:04 KW Document 04/19/24 14:30 KW [id number] 04/19/24 14:38 KW 04/05/24 04/12/24 04/19/24 11:56 10:59 14:30 WC - Today's Visit Information Type of service Follow-up Visit Follow-up Visit Follow-up Visit (Physician/MEDICAL DEVICE SALES REPRESENTATIVE (Physician/MEDICAL DEVICE SALES REPRESENTATIVE (Physician/MEDICAL DEVICE SALES REPRESENTATIVE ) ) ) Arrival Mode Ambulatory Ambulatory Ambulatory Transfer Assistance None Accompanied by Patient Identification Verified (Name & Yes Yes Yes ) Patient Requires Transmission-Based No Precautions Vital Signs Temperature (97.8 F-99.1 F) 97.6 F L 97.3 F L Temperature Source Temporal Temporal Temporal Pulse Rate (60-100) 67 66 71 Pulse Location Monitor Monitor Monitor Respiratory Rate (12-18) 20 H 18 18 Respiratory rate source Observation Observation Monitor Oxygen Delivery Method Room Air Room Air Blood Pressure (90/60-120/80) 141/62 H 128/60 H 154/65 H Blood Pressure Mean (mm Hg) 88 82 94 Source Monitor Monitor Monitor Position Semi-Fowlers Sitting Blood Pressure Location Left Arm Right Arm History Since Last Visit- (Skip if this is Patient's initial visit) Have you changed medications since your No No No last visit? Any new allergies or adverse reactions No No No Had a fall/change in ADL's that may No No No increase risk of falls Signs or symptoms of abuse and/or No No No neglect since last visit Have you been in the hospital since your No No No last visit? Has dressing in place as prescribed Yes Yes Yes Has compression in place as prescribed N/A N/A N/A Has offloadiing in place as prescribed Yes N/A N/A Experienced any changes in pain level or No No No management Left Footwear Regular Shoe Regular Shoe Right Footwear Regular Shoe Regular Shoe Pain Scale: 0-10 Numeric Is Patient Pain Free? Yes Yes Yes - Nurse 1 - General Ulcer Measurement Start: 04/05/24 11:56 Freq: Status: Active Protocol: Activity Type Activity Date Activity User E-sign Co-sign Detail Recorded Client Recorded Date Recorded By Document 04/05/24 11:56 DL 10.10.25.7 04/05/24 12:02 DL Document 04/12/24 10:59 KW ][ 04/12/24 11:04 KW Document 04/19/24 14:30 KW [id number] 04/19/24 14:38 KW 04/05/24 04/12/24 04/19/24 11:56 10:59 14:30 Wound Center Nurse 1 1-Sacrum -Current Size (cm) - Length 1 0.9 0.9 -Current Size (cm) - Width 1 0.9 0.8 -Current Size (cm) - Depth 1.6 1.8 1.7 -Total Square Cm 1 0.81 0.72 -Date of Last Picture (Recall this 04/12/24 field) -Exudate Amt Medium Small Large -Exudate Type Serosanguineous Serosanguineous Sanguineous -Wound Margin Distinct, Distinct, Distinct, Outline Outline Outline Attached Attached Attached -Granulation Amt Medium (34-66%) Large (67-100%) Large (67-100%) -Granulation Quality Red [place],Red Pale,[place] -Necrosis Amt Medium (34-66%) Small (1-33%) Small (1-33%) -Necrotic Tissue Type Adherent Slough Adherent Slough Adherent Slough -Structure Exposed N/A -Texture (Mickie-wound Skin Appearance) Scarring Assessed, Assessed Scarring -Moisture (Mickie-wound Skin Appearance) No Abnormality Assessed Assessed, Maceration -Color (Mickie-wound Skin Appearance) No Abnormality Assessed Assessed -Temperature (Mickie-wound Skin No Abnormality No Abnormality No Abnormality Appearance) (Pt Warm) (Pt Warm) (Pt Warm) -Tenderness on Palpation (Mickie-wound No No No Skin Appearance) -Ulcer Cleansing Soap and Water Rinsed/ Rinsed/ Irrigated with Irrigated with Saline Saline -Foul Odor after Cleansing No No No -Anesthetic Used 5% Lidocaine 5% Lidocaine 5% Lidocaine Gel Gel Gel WC - Nurse 2 - General Ulcer CM Notes Start: 04/05/24 11:56 Freq: Status: Active Protocol: Activity Type Activity Date Activity User E-sign Co-sign Detail Recorded Client Recorded Date Recorded By Document 04/05/24 12:20 JF 0000 04/05/24 12:28 JF Document 04/12/24 11:17 0000 04/12/24 11:21 Document 04/19/24 14:49 [id number] 04/19/24 14:53 04/05/24 04/12/24 04/19/24 12:20 11:17 14:49 Wound Center Nurse 2 1-Sacrum -Time 12:21 11:18 14:49 -Correct Patient Yes Yes Yes -Correct Side, Site, Position Yes Yes Yes -Correct Procedure Yes Yes Yes -Procedure Performed Yes Yes Yes -Type of Procedure Debridement Debridement Debridement -Clinical Debridement Muscle / Fascia Muscle / Fascia Muscle / Fascia -Tissue Removed Muscle,Fascia Muscle,Fascia Muscle,Fascia -Post Debridement (cm) - Length 1.0 1.5 1.4 -Post Debridement (cm) - Width 1.0 1.0 0.5 -Post Debridement (cm) - Depth 1.3 1.5 1.6 -Total Square (Post) (cm) 1.00 1.50 0.70 -Area of Debridement (cm) - Length 1.0 1.5 1.4 -Area of Debridement (cm) - Width 1.0 1.0 0.5 -Total Square (Area) (cm) 1.00 1.50 0.70 -Tunneling No No No -Undermining/Tunneling No Yes No -Undermining/Tunneling Starts (O'clock 12 ) -Maximum Distance (cm) 1.4 -Circular Undermining No Yes No -Wound/Ulcer Outcome Not Healed Not Healed Not Healed -Ulcer Cleansing Rinsed/ Rinsed/ Rinsed/ Irrigated with Irrigated with Irrigated with Saline Saline Saline -Foul Odor after Cleansing No No No -Bioengineered Tissue No No No -Bleeding Controlled with Pressure Pressure Pressure -Treatment Response Procedure Procedure Procedure Tolerated Well Tolerated Well Tolerated Well -Offloading No No No -Debridement - Muscle / Fascia, 1st Yes Yes Yes 20sq cm Pain Scale: 0-10 Numeric Is Patient Pain Free? Yes Yes Yes WC - Nurse 3 - General Ulcer D/C NN Start: 04/05/24 11:56 Freq: Status: Active Protocol: Activity Type Activity Date Activity User E-sign Co-sign Detail Recorded Client Recorded Date Recorded By Document 04/05/24 12:34 KW [email or web address] 04/05/24 12:35 KW Document 04/12/24 11:27 BMF 10.10.25.7 04/12/24 11:28 BMF Document 04/19/24 15:18 DL [id number] 04/19/24 15:19 DL 04/05/24 04/12/24 04/19/24 12:34 11:27 15:18 Wound Care Center Nurse 3 1-Sacrum -Ulcer Cleansing Rinsed/ Rinsed/ Rinsed/ Irrigated with Irrigated with Irrigated with Saline Saline Saline -Foul Odor after Cleansing No No No -Other Dressing DAKINS dakins moist dakins gauze moistened gauze -Primary Dressing Covered/Secured with Dry Gauze, Dry Gauze, Dry Gauze, Secured with Secured with Secured with Tape Tape Tape -Other Covering abd Treatment Response Procedure Procedure Procedure Tolerated Well Tolerated Well Tolerated Well Pain Scale: 0-10 Numeric Is Patient Pain Free? Yes Yes Yes WC - Visit Discharge Discharge Condition Stable Stable Stable Ambulatory Status Ambulatory Ambulatory Ambulatory Transportation Private Auto Private Auto Private Auto Accompanied by Notes: Dressing appllied today per [place] [facility]. Assessment/Plan Assessment/Plan (1) Wound of sacral region: CODE(S): S31.000A - Unspecified open wound of lower back and pelvis without penetration into retroperitoneum, initial encounter PLAN: Patient would benefit from biopsy of the wound. The discoloration and inflammation around the wound and its chronicity (2 years in an ambulatory patient without diabetes who does not smoke and follows wound care protocols and recommendations relatively well leads me to be concerned enough to biopsy). I talked about biopsy the wound with the patient and his and they are in agreement. I will also biopsy the pigmented lesion on the lower back. We can do them together in the OR. I think at the time of the biopsy of the wound I will also debride the wound (discussed with the patient and the and they are in agreement) and obtain cultures, again of the bone, and then place a dressing. Once the wound is street light cleaner (exudate and biofilm today), I will consider a rhomboid flap (Limberg flap) for reconstruction of the wound as this is essentially the same defect created with a pilonidal excision. I talked to him extensively about positioning (if we did the flap), and he understood that she cannot put any pressure on it for several weeks and he cannot sit on it for several weeks. Our rn field case manager is working on a pressure offloading bed form, as well as a home wound VAC. . Patient's Caprini score is 9 (10.7% risk of VTE) I would like him to be cleared by hematology before we perform the procedure, having their recommendations I had a time for perioperative anticoagulation. I would like to get him up and walking immediately after the surgery, from concerned about his risk of VTE in the setting of previous pulmonary embolism, albeit provoked from COVID. I talked to the patient extensively about his risk of anesthesia including risk of blood clots. We talked about the risks of wound healing issues, bleeding, need for repeat surgeries, infection, failure to obtain desired results, future possible flap failure, and false negative biopsy results. We also talked about damage to surrounding structures including the anus/rectum and nerves. He would like to proceed with surgery. Anticipate 1 night stay post-op (observation) Anticipated CPT for OR: [id number], [id number], [id number], [id number]
--- NOTE | 2024-04-22 10:08 | WC ---
PHOTO 04/12/24 [facility]
[2024-04-26 15:16] VITALS: BP 141/69; PULSE 68; RESP 18; TEMP 36.6
--- NOTE | 2024-04-26 18:43 | PCM.WC.PN ---
History of Present Illness Date of Service: 04/19/24 Chief Complaint: Stage IV sacral ulcer History of Wound: Clive Wilson is a 68-year-old male with a 2-year history of a sacral wound that started when patient was hospitalized, on ventilator in ICU with COVID. It has significantly improved in size since then but has been stagnant in progress for some time now per report from other providers at the wound care center. He he was for some time receiving wound care at the [facility] (patient lives in [place] which is near [place] and [place], about 45 minutes away), but switched to [place] last summer. At this time, wound cultures were obtained on 04/05/24 positive for MSSE, Corynebacterium striatum and Anaerobic cocci, which were treated with a course of Augmentin. The previous plastic surgeon or wound care center, Dr. Cagle, performed the following surgery last fall: Surgery 06/19/23 - Excision sacral pressure sore, Stage IV, with partial ostectomy for osteomyelitis. Cultures from the OR were negative for osteomyelitis (sacral bone culture was performed). Pathology of the bone specimen showed reactive changes with mild chronic inflammation and minimal acute inflammation that was not specific for osteomyelitis. A CT pelvis done around the same time did not show any sclerotic or destructive changes of the sacrum. He has since been following up in the wound care center with us for approximately bimonthly debridements and wound care. He has been doing Dakin's wet to dry dressings twice daily. He reports that for some time the wound was getting smaller, but that several months ago it became about the size it is now and it has not healed since then. His reports that he has been pressure offloading it intermittently, and most of the time not laying on it. Today in the office visit we talked about not laying on the wound extensively. We talked about positioning changes, and the negative impacts of pressure on the wound. He does not have in her bed. The employment case manager was working on one for him but it was denied because of insurance reasons. Patient does not smoke. He does not use smokeless tobacco and he does not drink. Patient has a history of hypertension which is controlled on multiple blood pressure medicines. Patient does have a history of a pulmonary embolism, but this was related to his COVID hospitalization (several months hospitalization). He is not on any oxygen anymore. He finished his 6-month course of blood thinner and is no longer on any blood thinner. Subjective Subjective Current encounter, 26 April 2024: Patient here today for wound care check up and also for discussion about upcoming surgery. Patient reports no change in health history since last seen in clinic. They have been compliant with the dressing changes. Objective Data Objective Data Vital Signs: Vital Signs Temp Pulse Resp BP O2 Del Method 98 F 68 18 141/69 H Room Air 04/26/24 15:16 04/26/24 15:16 04/26/24 15:16 04/26/24 15:16 04/19/24 14:30 Oxygen Delivery Method Room Air Lab / Micro Data Micro: Microbiology 04/05/24 12:26 Ulcer, Decubitus - Other Gram Stain - Final 04/05/24 12:26 Ulcer, Decubitus - Other Wound Culture - Final Corynebacterium striatum Staphylococcus epidermidis 04/05/24 12:26 Ulcer, Decubitus - Other Anaerobic Culture - Final Anaerobic cocci Charges/Coding Procedures Integumentary [id number]: [id number] Roxi musc/fascia 20 sq cm/< Physical Exam Narrative Posterior trunk examination Small pigmented lesion approximately 1 x 1 cm below the right lower quadrant of the back that has irregular borders and multiple colors. Sacral wound is 0.8 x 0.9 cm and 1.7 cm deep with exposed bone/presacral fascia at the base. No purulent drainage. Minimal tunneling. There is redness around the edges of the wound/inflammation. Within the wound there was significant biofilm and exudate. Const alert and oriented x3 HEENT normocephalic Eyes PERRL Lymph Lymphatic: no lymphadenopathy noted Resp normal respiratory effort and clear to auscultation bilaterally Cardio regular rate and regular rhythm GI non-distended Extremity no clubbing, cyanosis or edema Skin no rashes or lesions noted Psych affect normal Debridement Note Debridement Note Laterality: Not Applicable Type of Debridement: Excisional debridement Anesthesia Used: 4% Lidocaine Solution Depth: to bone Percentage of wound debrided: 100 Instrument Used: 5mm curette Severity: Necrosis of Muscle Amount of bleeding with debridement: Mild Bleeding Controlled with: Pressure Patient tolerated procedure: Patient tolerated procedure well Post-Debridement Measurements and Additional Note: Post-Debridement Measurements/Treatment WC - Nurse 1 - General Ulcer Assessment Start: 08/05/24 11:56 Freq: Status: Active Protocol: WC.LOWEXT Activity Type Activity Date Activity User E-sign Co-sign Detail Recorded Client Recorded Date Recorded By Document 04/05/24 11:56 DL 10.10.25.7 04/05/24 12:02 DL Document 04/12/24 10:59 KW ][ 04/12/24 11:04 KW Document 04/19/24 14:30 KW [id number] 04/19/24 14:38 KW Document 04/26/24 15:16 DL [id number] 04/26/24 15:17 DL 04/05/24 04/12/24 04/19/24 11:56 10:59 14:30 WC - Today's Visit Information Type of service Follow-up Visit Follow-up Visit Follow-up Visit (Physician/PROGRAM PROJECT MANAGER (Physician/PROGRAM PROJECT MANAGER (Physician/PROGRAM PROJECT MANAGER ) ) ) Arrival Mode Ambulatory Ambulatory Ambulatory Transfer Assistance None Accompanied by Patient Identification Verified (Name & Yes Yes Yes ) Patient Requires Transmission-Based No Precautions Vital Signs Temperature (97.8 F-99.1 F) 97.6 F L 97.3 F L Temperature Source Temporal Temporal Temporal Pulse Rate (60-100) 67 66 71 Pulse Location Monitor Monitor Monitor Respiratory Rate (12-18) 20 H 18 18 Respiratory rate source Observation Observation Monitor Oxygen Delivery Method Room Air Room Air Blood Pressure (90/60-120/80) 141/62 H 128/60 H 154/65 H Blood Pressure Mean (mm Hg) 88 82 94 Source Monitor Monitor Monitor Position Semi-Fowlers Sitting Blood Pressure Location Left Arm Right Arm History Since Last Visit- (Skip if this is Patient's initial visit) Have you changed medications since your No No No last visit? Any new allergies or adverse reactions No No No Had a fall/change in ADL's that may No No No increase risk of falls Signs or symptoms of abuse and/or No No No neglect since last visit Have you been in the hospital since your No No No last visit? Has dressing in place as prescribed Yes Yes Yes Has compression in place as prescribed N/A N/A N/A Has offloadiing in place as prescribed Yes N/A N/A Experienced any changes in pain level or No No No management Left Footwear Regular Shoe Regular Shoe Right Footwear Regular Shoe Regular Shoe Pain Scale: 0-10 Numeric Is Patient Pain Free? Yes Yes Yes 04/26/24 15:16 - Today's Visit Information Type of service Follow-up Visit (Physician/PROGRAM PROJECT MANAGER ) Arrival Mode Ambulatory Transfer Assistance None Accompanied by Patient Identification Verified (Name & Yes ) Patient Requires Transmission-Based No Precautions Vital Signs Temperature (97.8 F-99.1 F) 98 F Temperature Source Temporal Pulse Rate (60-100) 68 Pulse Location Monitor Respiratory Rate (12-18) 18 Respiratory rate source Oxygen Delivery Method Blood Pressure (90/60-120/80) 141/69 H Blood Pressure Mean (mm Hg) 93 Source Monitor Position Blood Pressure Location History Since Last Visit- (Skip if this is Patient's initial visit) Have you changed medications since your No last visit? Any new allergies or adverse reactions No Had a fall/change in ADL's that may No increase risk of falls Signs or symptoms of abuse and/or No neglect since last visit Have you been in the hospital since your No last visit? Has dressing in place as prescribed Yes Has compression in place as prescribed N/A Has offloadiing in place as prescribed Yes Experienced any changes in pain level or No management Left Footwear Right Footwear Pain Scale: 0-10 Numeric Is Patient Pain Free? Yes - Nurse 1 - General Ulcer Measurement Start: 04/05/24 11:56 Freq: Status: Active Protocol: Activity Type Activity Date Activity User E-sign Co-sign Detail Recorded Client Recorded Date Recorded By Document 04/05/24 11:56 DL 10.10.25.7 04/05/24 12:02 DL Document 04/12/24 10:59 KW ][ 04/12/24 11:04 KW Document 04/19/24 14:30 KW [id number] 04/19/24 14:38 KW Document 04/26/24 15:16 DL [id number] 04/26/24 15:17 DL 04/05/24 04/12/24 04/19/24 11:56 10:59 14:30 Wound Center Nurse 1 1-Sacrum -Current Size (cm) - Length 1 0.9 0.9 -Current Size (cm) - Width 1 0.9 0.8 -Current Size (cm) - Depth 1.6 1.8 1.7 -Total Square Cm 1 0.81 0.72 -Date of Last Picture (Recall this 04/12/24 field) -Exudate Amt Medium Small Large -Exudate Type Serosanguineous Serosanguineous Sanguineous -Wound Margin Distinct, Distinct, Distinct, Outline Outline Outline Attached Attached Attached -Granulation Amt Medium (34-66%) Large (67-100%) Large (67-100%) -Granulation Quality Red [place],Red Pale,[place] -Necrosis Amt Medium (34-66%) Small (1-33%) Small (1-33%) -Necrotic Tissue Type Adherent Slough Adherent Slough Adherent Slough -Structure Exposed N/A -Texture (Mickie-wound Skin Appearance) Scarring Assessed, Assessed Scarring -Moisture (Mickie-wound Skin Appearance) No Abnormality Assessed Assessed, Maceration -Color (Mickie-wound Skin Appearance) No Abnormality Assessed Assessed -Temperature (Mickie-wound Skin No Abnormality No Abnormality No Abnormality Appearance) (Pt Warm) (Pt Warm) (Pt Warm) -Tenderness on Palpation (Mickie-wound No No No Skin Appearance) -Ulcer Cleansing Soap and Water Rinsed/ Rinsed/ Irrigated with Irrigated with Saline Saline -Foul Odor after Cleansing No No No -Anesthetic Used 5% Lidocaine 5% Lidocaine 5% Lidocaine Gel Gel Gel 04/26/24 15:16 Wound Center Nurse 1 1-Sacrum -Current Size (cm) - Length 1.1 -Current Size (cm) - Width 0.6 -Current Size (cm) - Depth 1.5 -Total Square Cm 0.66 -Date of Last Picture (Recall this field) -Exudate Amt Medium -Exudate Type Serosanguineous -Wound Margin Distinct, Outline Attached -Granulation Amt Large (67-100%) -Granulation Quality [place],Red -Necrosis Amt Small (1-33%) -Necrotic Tissue Type Adherent Slough -Structure Exposed N/A -Texture (Mickie-wound Skin Appearance) Scarring -Moisture (Mickie-wound Skin Appearance) No Abnormality -Color (Mickie-wound Skin Appearance) No Abnormality -Temperature (Mickie-wound Skin No Abnormality Appearance) (Pt Warm) -Tenderness on Palpation (Mickie-wound Skin Appearance) -Ulcer Cleansing Not Cleansed -Foul Odor after Cleansing No -Anesthetic Used 5% Lidocaine Gel WC - Nurse 2 - General Ulcer CM Notes Start: 04/05/24 11:56 Freq: Status: Active Protocol: Activity Type Activity Date Activity User E-sign Co-sign Detail Recorded Client Recorded Date Recorded By Document 04/05/24 12:20 0000 04/05/24 12:28 Document 04/12/24 11:17 0000 04/12/24 11:21 Document 04/19/24 14:49 [id number] 04/19/24 14:53 Document 04/26/24 16:15 JF [id number] 04/26/24 16:20 JF 04/05/24 04/12/24 04/19/24 12:20 11:17 14:49 Wound Center Nurse 2 1-Sacrum -Time 12:21 11:18 14:49 -Correct Patient Yes Yes Yes -Correct Side, Site, Position Yes Yes Yes -Correct Procedure Yes Yes Yes -Procedure Performed Yes Yes Yes -Type of Procedure Debridement Debridement Debridement -Clinical Debridement Muscle / Fascia Muscle / Fascia Muscle / Fascia -Tissue Removed Muscle,Fascia Muscle,Fascia Muscle,Fascia -Post Debridement (cm) - Length 1.0 1.5 1.4 -Post Debridement (cm) - Width 1.0 1.0 0.5 -Post Debridement (cm) - Depth 1.3 1.5 1.6 -Total Square (Post) (cm) 1.00 1.50 0.70 -Area of Debridement (cm) - Length 1.0 1.5 1.4 -Area of Debridement (cm) - Width 1.0 1.0 0.5 -Total Square (Area) (cm) 1.00 1.50 0.70 -Tunneling No No No -Undermining/Tunneling No Yes No -Undermining/Tunneling Starts (O'clock 12 ) -Maximum Distance (cm) 1.4 -Circular Undermining No Yes No -Wound/Ulcer Outcome Not Healed Not Healed Not Healed -Ulcer Cleansing Rinsed/ Rinsed/ Rinsed/ Irrigated with Irrigated with Irrigated with Saline Saline Saline -Foul Odor after Cleansing No No No -Bioengineered Tissue No No No -Bleeding Controlled with Pressure Pressure Pressure -Treatment Response Procedure Procedure Procedure Tolerated Well Tolerated Well Tolerated Well -Offloading No No No -Debridement - Muscle / Fascia, 1st Yes Yes Yes 20sq cm Pain Scale: 0-10 Numeric Is Patient Pain Free? Yes Yes Yes 04/26/24 16:15 Wound Center Nurse 2 1-Sacrum -Time 16:15 -Correct Patient Yes -Correct Side, Site, Position Yes -Correct Procedure Yes -Procedure Performed Yes -Type of Procedure Debridement -Clinical Debridement Muscle / Fascia -Tissue Removed Muscle,Fascia -Post Debridement (cm) - Length 2.0 -Post Debridement (cm) - Width 1.5 -Post Debridement (cm) - Depth 2.0 -Total Square (Post) (cm) 3.00 -Area of Debridement (cm) - Length 2.0 -Area of Debridement (cm) - Width 1.5 -Total Square (Area) (cm) 3.00 -Tunneling No -Undermining/Tunneling No -Undermining/Tunneling Starts (O'clock ) -Maximum Distance (cm) -Circular Undermining No -Wound/Ulcer Outcome Not Healed -Ulcer Cleansing Rinsed/ Irrigated with Saline -Foul Odor after Cleansing No -Bioengineered Tissue No -Bleeding Controlled with Pressure -Treatment Response Procedure Tolerated Well -Offloading No -Debridement - Muscle / Fascia, 1st Yes 20sq cm Pain Scale: 0-10 Numeric Is Patient Pain Free? Yes - Nurse 3 - General Ulcer D/C NN Start: 04/05/24 11:56 Freq: Status: Active Protocol: Activity Type Activity Date Activity User E-sign Co-sign Detail Recorded Client Recorded Date Recorded By Document 04/05/24 12:34 [email or web address] 04/05/24 12:35 Document 04/12/24 11:27 [facility] 10.10.25.7 04/12/24 11:28 BM Document 04/19/24 15:18 DL [id number] 04/19/24 15:19 DL Document 04/26/24 16:28 DL [id number] 04/26/24 16:29 DL 04/05/24 04/12/24 04/19/24 12:34 11:27 15:18 Wound Care Center Nurse 3 1-Sacrum -Ulcer Cleansing Rinsed/ Rinsed/ Rinsed/ Irrigated with Irrigated with Irrigated with Saline Saline Saline -Foul Odor after Cleansing No No No -Other Dressing DAKINS dakins moist dakins gauze moistened gauze -Primary Dressing Covered/Secured with Dry Gauze, Dry Gauze, Dry Gauze, Secured with Secured with Secured with Tape Tape Tape -Other Covering abd Treatment Response Procedure Procedure Procedure Tolerated Well Tolerated Well Tolerated Well Pain Scale: 0-10 Numeric Is Patient Pain Free? Yes Yes Yes WC - Visit Discharge Discharge Condition Stable Stable Stable Ambulatory Status Ambulatory Ambulatory Ambulatory Transportation Private Auto Private Auto Private Auto Accompanied by Notes: Dressing appllied today per [place] Reed. 04/26/24 16:28 Wound Care Center Nurse 3 1-Sacrum -Ulcer Cleansing Rinsed/ Irrigated with Saline -Foul Odor after Cleansing No -Other Dressing dakins moist gauze; -Primary Dressing Covered/Secured with Dry Gauze, Secured with Tape -Other Covering drsg per dl sales ledger administrator Treatment Response Procedure Tolerated Well Pain Scale: 0-10 Numeric Is Patient Pain Free? Yes WC - Visit Discharge Discharge Condition Stable Ambulatory Status Ambulatory Transportation Private Auto Accompanied by Notes: Assessment/Plan Assessment/Plan (1) Wound of sacral region: CODE(S): S31.000A - Unspecified open wound of lower back and pelvis without penetration into retroperitoneum, initial encounter PLAN: Patient would benefit from biopsy of the wound. The discoloration and inflammation around the wound and its chronicity (2 years in an ambulatory patient without diabetes who does not smoke and follows wound care protocols and recommendations relatively well leads me to be concerned enough to biopsy). I talked about biopsy the wound with the patient and his and they are in agreement. I will also biopsy the pigmented lesion on the lower back. We can do them together in the OR. I think at the time of the biopsy of the wound I will also debride the wound (discussed with the patient and the and they are in agreement) and obtain cultures, again of the bone, and then place a dressing. Once the wound is wet cleaner machine (exudate and biofilm today), I will consider a rhomboid flap (Limberg flap) for reconstruction of the wound as this is essentially the same defect created with a pilonidal excision. I talked to him extensively about positioning (if we did the flap), and he understood that she cannot put any pressure on it for several weeks and he cannot sit on it for several weeks. Our employment case manager is working on a pressure offloading bed form, as well as a home wound VAC. . Patient's Caprini score is 9 (10.7% risk of VTE) I would like him to be cleared by hematology before we perform the procedure, having their recommendations I had a time for perioperative anticoagulation. I would like to get him up and walking immediately after the surgery, from concerned about his risk of VTE in the setting of previous pulmonary embolism, albeit provoked from COVID. I talked to the patient extensively about his risk of anesthesia including risk of blood clots. We talked about the risks of wound healing issues, bleeding, need for repeat surgeries, infection, failure to obtain desired results, future possible flap failure, and false negative biopsy results. We also talked about damage to surrounding structures including the anus/rectum and nerves. He would like to proceed with surgery. Anticipate 1 night stay post-op (observation) Anticipated CPT for OR: [id number], [id number], [id number], [id number] PLAN 26 April 2024: Further discussed pressure offloading postoperatively. We talked about potential risks of wound healing problems with flap reconstruction and how sometimes you can even make a bigger wound by making the incisions and they do not heal. They understand the risks and the benefits. They understand the likelihood of some wound dehiscence and need for packing. We are waiting for medical clearance from hematology given his high Caprini score and we would also like their input on anticoagulation perioperatively. We are also waiting on medical clearance from his primary care doctor given his history of severe COVID hospitalization. Tentative plan is for excision of the wound on 05 May 2024 and follow-up of pathology of the specimen (rule out malignancy). Will plan on reconstructing the wound following this excisional debridement at a later time in the near future, and will likely do VAC changes in the interim. Patient and his are happy with the plan.
== END 2024-05-01 23:59 | disposition home or self-care (01) ==
LOC: WC 15:00
PROVIDERS: PCP Family Medicine; Referring Provider Surgery; Visit Provider Surgery Plastic and Reconstructive Surgery
DX: L89.154 Pressure ulcer of sacral region, stage 4 (principal); I10 Essential (primary) hypertension; Z86.16 Personal history of COVID-19; Z87.09 Personal history of other diseases of the respiratory system; Z86.73 Personal history of transient ischemic attack (TIA), and cerebral infarction without residual deficits
CPT/HCPCS: 11043; 87070; 87075; 87077; 87186; 87205

== ENCOUNTER 2024-05-05 13:23 | Inpatient (IN) | payer MEDICARE, BC, SELFPAY ==
[2024-04-26 17:40] LABS: Absolute Neutrophil Count 6.3 X10^3/uL (2.0-7.7); Basophil# 0.04 X10^3/uL; Basophil% 0.5 % (0-1); Eosinophil# 0.13 X10^3/uL; Eosinophils% 1.5 % (0-5); Hematocrit 50.1 % (40-54); Hemoglobin 16.4 g/dL (13.0-16.5); Lymphocyte % 17.2 % (19-41); Mean Corp Hgb Conc 32.7 g/dL (32-36); Mean Corpuscular Hgb 27.4 pg (27.0-32.0); Mean Corpuscular Volume 83.8 fL (80-94); Mean Platelet Vol. 9.3 fl (6.2-12.0); Monocyte# 0.69 X10^3/uL; Monocyte% 7.9 % (0-10); NRBC Flagged by Analyzer 0 % (0-5); Neutrophil % 72.3 % (47-70); Platelet Count 249 K/mm3 (150-450); RBC Distribution Width CV 13.5 % (11.6-14.6); RBC Distribution Width SD 41.3 fl (35.1-43.9); Red Blood Count 5.98 M/mm3 (4.6-6.2); White Blood Count 8.7 K/mm3 (4.4-11.0)
[2024-04-26 18:10] LABS: ALB/GLOB Ratio 0.9 RATIO (0.9-2.4); AST(SGOT) 20 U/L (15-37); Alanine Aminotransfer ALT/SGPT 37 U/L (16-61); Albumin, Serum 3.4 g/dL (3.2-5.0); Alkaline Phosphatase 83 U/L (45-117); Anion Gap 8 (5-15); BUN 19 mg/dL (7-18); BUN/Creat Ratio 15.8 RATIO (10-20); Calcium,Total 9.1 mg/dL (8.5-10.1); Chloride 107 mmol/L (98-107); EST Glomerular Filtration Rate 63 mL/min (>60); Est Glom Filt Rate - Afr Amer 77 mL/min (>60); Globulin 3.9 g/dL (2.2-4.2); Glucose 106 mg/dL (74-106); Potassium 3.9 mmol/L (3.5-5.1); Protein, Total 7.3 g/dL (6.4-8.2); Sodium Level 139 mmol/L (136-145)
[2024-05-05] VITALS (20 sets, daily range): BP systolic 102–156; BP diastolic 42–75; PULSE 65–88; RESP 16–18; TEMP 36.3–36.7; O2SAT 93–98; BMI 28.6
[2024-05-05] MEDS: Lactated Ringers 1,000 ML 15 ML IV (10:35)
--- NOTE | 2024-05-05 10:40 | SUR.PREOP ---
Patient and would like [facility], adamaris noel to see patient after surgery.
--- NOTE | 2024-05-05 10:57 | PCM.PRE.AN2 ---
ASA Classification* ASA Classification ASA Classification: 3 Assessment & Plan Anesthesia* Anesthesia Assessment Anesthesia Assessment: Discussed sedation and/or anesthesia options, risks, benefits, and alternatives with patient/parents/legal guardian/POA. Questions invited. The patient/parents/legal guardian/POA seems to understand and agrees to proceed with anesthesia plan. Reviewed the physical assessment, medical history, allergy history and patient home medications list prior to surgery/procedure/anesthetic and documented any changes. Performed airway and anesthesia risk assessments. Anesthesia Type Anesthesia Type: General (see written pre anesthesia record for full assessment) Anesthesia Focused Assessment* Temperature: 97.9 F Pulse Rate: 66 Blood Pressure: 107/75 Respiratory Rate: 16 Pulse Ox: 98 Airway Assessment Mouth opens: >3 cm Mallampati Score: II Focused Labs Anesthesia Preop lab: CBC WBC 8.7 K/mm3 (4.4-11.0) 04/26/24 17:01 RBC 5.98 M/mm3 (4.6-6.2) 04/26/24 17:01 Hgb 16.4 g/dL (13.0-16.5) 04/26/24 17:01 Hct 50.1 % (40-54) 04/26/24 17:01 Plt Count 249 K/mm3 (150-450) 04/26/24 17:01 CHEMISTRY Potassium 3.9 mmol/L (3.5-5.1) 04/26/24 17:01 Sodium 139 mmol/L (136-145) 04/26/24 17:01 Magnesium 2.2 mg/dL (1.6-2.6) 08/08/21 03:40 Phosphorus 2.8 mg/dL (2.5-4.9) 08/03/21 03:20 BUN 19 mg/dL (7-18) H 04/26/24 17:01 Creatinine 1.20 mg/dL (0.70-1.30) 04/26/24 17:01 Glucose 106 mg/dL (74-106) 04/26/24 17:01 COAG PT 13.1 SECONDS (11.7-14.9) 06/12/23 12:50 Pre-Assessment Diagnosis/Proposed Procedure Planned Operative Procedure(s): EXCISON SACRAL WOUND, BIOPSY OF WOUND AND BIOPSY OF BACK LESION HEMATOLOGY FOR PERIOP ANTICOAG Anesthesia History Anesthesia History - inspector rough castings: Anesthesia History - inspector rough castings Hx Hospitalization No 04/26/24 14:31 Any Problems With Anesthesia Yes: UNABLE TO URINATE 04/26/24 14:31 Cholinesterase deficiency No 04/26/24 14:31 You/Your Family Experience No 04/26/24 14:31 fever (hyperthermia) with Relationship Recent Exposure to Contagious No 05/05/24 10:27 Disease Does patient have nerve No 04/26/24 14:31 stimulator Patient instructed to have device shut off --Does patient have Pacemaker No 05/05/24 10:27 or ICD? When Was Last Pacemaker Check QUESTION #4 FULL TEXT: You/Your Family Experience fever (hyperthermia) with Anesthesia Last Oral Intake Last Oral intake: Last Oral Intake NPO since 21:00 05/05/24 10:27 Meds taken in AM with sips of No 05/05/24 10:27 water? Meds patient instructed to take am of surgery PONV PONV - inspector rough castings: PONV - inspector rough castings Female No 04/26/24 14:31 HX of Motion Sickness No 04/26/24 14:31 HX of N/V After Surgery No 04/26/24 14:31 Non-Smoker Yes 04/26/24 14:31 Duration of Surgery greater No 04/26/24 14:31 than 60 minutes Number of Risk Factors 1 04/26/24 14:31 PONV Score Low Risk 04/26/24 14:31 Height & Weight Height & Weight: Anesthesia: Height & Weight Height 5 ft 9 in 05/05/24 10:27 Weight: 87.9 kg 05/05/24 10:27 Body Mass Index (BMI) 28.6 05/05/24 10:27 Respiratory Assessment Respiratory Assessment - inspector rough castings: Respiratory Tract Infection Hx - inspector rough castings Hx Respiratory Tract Infection No 04/26/24 14:31 STOP Sleep Apnea STOP Sleep Apnea - inspector rough castings: STOP Sleep Apnea - inspector rough castings Hx Hypertension Yes: CONTROLLED WITH MED 04/26/24 14:31 Hx Sleep Apnea Yes 04/26/24 14:31 CPAP Yes 04/26/24 14:31 BIPAP No 04/26/24 14:31 Do you snore loudly (louder than talking or can be heard Do you often feel tired/ fatigued/ sleepy during daytime? Has anyone observed you stop breathing during sleep? STOP Results Positive 04/26/24 14:31 QUESTION #5 FULL TEXT : Do you snore loudly (louder than talking or can be heard through closed doors)? 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 Specify any problems Hx of Preganancy in last 3 N/A 04/26/24 14:31 Months Nurse Filling Out Transfusion VCHRISTIN 04/26/24 14:31 & Questions: Date: 04/26/24 04/26/24 14:31 Time: 14:33 04/26/24 14:31 Patient unable to answer at this time (ie. confused, unrespo /Reproduction History /Reproductive History - inspector rough castings: /Reproductive Hx- inspector rough castings Hx Now Gestational Age (in weeks): EDC: Hx Hx Para Hx Section SAB No 04/26/24 14:31 Active Medications Active Medications: Current Medications Generic Name Dose Route Start Last Admin Trade Name Freq PRN Reason Stop Dose Admin Clindamycin Phosphate 900 mg in 50 mls @ 75 mls/hr 05/05/24 12:00 Cleocin IV 05/05/24 12:39 PREOP ONE Lactated Ringer's 1,000 mls @ 15 mls/hr 05/05/24 10:15 05/05/24 10:35 IV 15 mls/hr .Q48H BEHZAD Administration PFSH Medical History Loss of hearing Wears glasses Wears partial dentures Wears dentures Hypoglycemia Pressure ulcer Anemia Easy bruising Migraine headache Non-smoker On home oxygen therapy CPAP (continuous positive airway pressure) dependence History of edema Cardiology follow-up encounter History of irregular heartbeat History of echocardiogram Pulmonary embolism DVT (deep venous thrombosis) History of pressure ulcer History of acute respiratory failure Personal history of COVID-19 Pressure ulcer of sacral region, stage 4 Pneumonia due to COVID-19 virus Acute respiratory failure with hypoxia Narcolepsy Asthma Stroke/cerebrovascular accident Hypertension Home Medications ?Medication ?Instructions ?Recorded ?Last Taken ?Type clonidine 0.2 mg/24 hr weekly 1 patch transdermal QWEEK 02/07/23 05/04/24 History transdermal patch losartan 100 1 tab PO DAILY 02/07/23 05/04/24 History mg-hydrochlorothiazide 25 mg tablet (Hyzaar) metoprolol tartrate 50 mg tablet 50 mg PO BID 02/07/23 05/05/24 History oxycodone-acetaminophen 5 mg-325 1 tab PO Q6H PRN pain (scale score 06/20/23 Unknown Rx mg tablet (Percocet) 7-10) 7 days #28 tabs ezetimibe 10 mg tablet 10 mg PO DAILY 03/17/24 05/04/24 History albuterol sulfate 90 mcg/actuation 2 inh inhalation Q6H PRN ASTHMA 04/26/24 Unknown History aerosol inhaler (Proventil HFA) diphenhydramine HCl 50 mg capsule 50 mg PO QHS PRN sleep 04/28/24 05/04/24 History prune lax PO DAILY PRN constipation 04/28/24 Unknown History Allergy/AdvReac Type Severity Reaction Status Date / Time cephalexin (From Keflex) Allergy Rash Verified 05/05/24 10:23 theophylline Allergy Rash Verified 05/05/24 10:23 Family History Father Hypertension Surgical History Hx of surgical procedure History of cholecystectomy History of hernia repair Status post tracheostomy Status post insertion of percutaneous endoscopic gastrostomy (PEG) tube Social History household members: spouse Smoking Status: Never smoker alcohol intake: never substance use type: does not use Review of Systems (Anesthesia) ROS Narrative System reviewed and no additional complaints, except as documented.
--- NOTE | 2024-05-05 11:10 | PCM.HP.STD ---
HPI - General HPI Narrative Date of Service: 04/19/24 Chief Complaint: Stage IV sacral ulcer History of Wound: Clive Wilson is a 68-year-old male with a 2-year history of a sacral wound that started when patient was hospitalized, on ventilator in ICU with COVID. It has significantly improved in size since then but has been stagnant in progress for some time now per report from other providers at the wound care center. He he was for some time receiving wound care at the [place] wound center (patient lives in [place] which is near [place] and [place], about 45 minutes away), but switched to [place] last summer. At this time, wound cultures were obtained on 04/05/24 positive for MSSE, Corynebacterium striatum and Anaerobic cocci, which were treated with a course of Augmentin. The previous plastic surgeon or wound care center, Dr. Cagle, performed the following surgery last fall: Surgery 06/19/23 - Excision sacral pressure sore, Stage IV, with partial ostectomy for osteomyelitis. Cultures from the OR were negative for osteomyelitis (sacral bone culture was performed). Pathology of the bone specimen showed reactive changes with mild chronic inflammation and minimal acute inflammation that was not specific for osteomyelitis. A CT pelvis done around the same time did not show any sclerotic or destructive changes of the sacrum. He has since been following up in the wound care center with us for approximately bimonthly debridements and wound care. He has been doing Dakin's wet to dry dressings twice daily. He reports that for some time the wound was getting smaller, but that several months ago it became about the size it is now and it has not healed since then. His reports that he has been pressure offloading it intermittently, and most of the time not laying on it. Today in the office visit we talked about not laying on the wound extensively. We talked about positioning changes, and the negative impacts of pressure on the wound. He does not have in her bed. The case consultant was working on one for him but it was denied because of insurance reasons. Patient does not smoke. He does not use smokeless tobacco and he does not drink. Patient has a history of hypertension which is controlled on multiple blood pressure medicines. Patient does have a history of a pulmonary embolism, but this was related to his COVID hospitalization (several months hospitalization). He is not on any oxygen anymore. He finished his 6-month course of blood thinner and is no longer on any blood thinner. Current Encounter (DATE OF SURGERY H&P UPDATE): I saw and examined the patient this morning in pre-operative holding. We discussed risks and benefits of today's surgery and they would like to proceed. NO CHANGE in health history since last seen and evaluated. Ready to proceed with surgery. The access registrar saw and examined my patient pre-operatively . Turns out that there was no identifiable blood clot (patient and thought that high d dimmer and the respiratory failure meant that he was having a blood clot, but turns out that he had respiratory failure from COVID rather than a PE. Per Dr. Elmore's note: (1) At low risk for deep venous thrombosis: Status: Chronic Comment: Caprini score for DVT is low. Plan: To proceed with skin ulcer surgery. To pursue normal DVT prophylaxis/pneumatic pump. [facility] Medical History Loss of hearing Wears glasses Wears partial dentures Wears dentures Hypoglycemia Pressure ulcer Anemia Easy bruising Migraine headache Non-smoker On home oxygen therapy CPAP (continuous positive airway pressure) dependence History of edema Cardiology follow-up encounter History of irregular heartbeat History of echocardiogram Pulmonary embolism DVT (deep venous thrombosis) History of pressure ulcer History of acute respiratory failure Personal history of COVID-19 Pressure ulcer of sacral region, stage 4 Pneumonia due to COVID-19 virus Acute respiratory failure with hypoxia Narcolepsy Asthma Stroke/cerebrovascular accident Hypertension Home Medications ?Medication ?Instructions ?Recorded ?Last Taken ?Type clonidine 0.2 mg/24 hr weekly 1 patch transdermal QWEEK 02/07/23 05/04/24 History transdermal patch losartan 100 1 tab PO DAILY 02/07/23 05/04/24 History mg-hydrochlorothiazide 25 mg tablet (Hyzaar) metoprolol tartrate 50 mg tablet 50 mg PO BID 02/07/23 05/05/24 History oxycodone-acetaminophen 5 mg-325 1 tab PO Q6H PRN pain (scale score 06/20/23 Unknown Rx mg tablet (Percocet) 7-10) 7 days #28 tabs ezetimibe 10 mg tablet 10 mg PO DAILY 03/17/24 05/04/24 History albuterol sulfate 90 mcg/actuation 2 inh inhalation Q6H PRN ASTHMA 04/26/24 Unknown History aerosol inhaler (Proventil HFA) diphenhydramine HCl 50 mg capsule 50 mg PO QHS PRN sleep 04/28/24 05/04/24 History prune lax PO DAILY PRN constipation 04/28/24 Unknown History Allergy/AdvReac Type Severity Reaction Status Date / Time cephalexin (From Keflex) Allergy Rash Verified 05/05/24 10:23 theophylline Allergy Rash Verified 05/05/24 10:23 Family History Father Hypertension Surgical History Hx of surgical procedure History of cholecystectomy History of hernia repair Status post tracheostomy Status post insertion of percutaneous endoscopic gastrostomy (PEG) tube Social History household members: spouse Smoking Status: Never smoker alcohol intake: never substance use type: does not use Vital Signs Vital Signs Vital Signs: 05/05/24 10:27 05/05/24 10:27 05/05/24 10:57 Temperature 97.9 F 97.9 F Temperature Source Temporal Pulse Rate 66 66 Respiratory Rate 16 16 Respiratory Pattern Normal Blood Pressure 107/75 107/75 Blood Pressure Mean 85 Blood Pressure Source Monitor Blood Pressure Position Sitting Blood Pressure Location Right Arm Pulse Ox 98 98 Oxygen Delivery Method Room Air Weight Weight: 193 lb 12.581 oz Body Mass Index (BMI) 28.6 Physical Exam Narrative Posterior trunk examination Small pigmented lesion approximately 1 x 1 cm below the right lower quadrant of the back that has irregular borders and multiple colors. Sacral wound is 0.8 x 0.9 cm and 1.7 cm deep with exposed bone/presacral fascia at the base. No purulent drainage. Minimal tunneling. There is redness around the edges of the wound/inflammation. Within the wound there was significant biofilm and exudate. Const alert and oriented x3 HEENT normocephalic Eyes PERRL Lymph Lymphatic: no lymphadenopathy noted Resp normal respiratory effort and clear to auscultation bilaterally Cardio regular rate and regular rhythm GI non-distended Extremity no clubbing, cyanosis or edema Skin no rashes or lesions noted Psych affect normal Results Lab / Micro Data 04/26/24 17:01 04/26/24 17:01 Assessment & Plan Assessment/Plan (1) Wound of sacral region: PLAN: PLAN 26 April 2024: Further discussed pressure offloading postoperatively. We talked about potential risks of wound healing problems with flap reconstruction and how sometimes you can even make a bigger wound by making the incisions and they do not heal. They understand the risks and the benefits. They understand the likelihood of some wound dehiscence and need for packing. Tentative plan is for excision of the wound on 05 May 2024 and follow-up of pathology of the specimen (rule out malignancy). Will plan on reconstructing the wound following this excisional debridement at a later time in the near future, and will likely do VAC changes in the interim. Patient and his are happy with the plan. INTERVAL H&P PLAN, DATE OF SURGERY: We will proceed with surgery today. He was medically cleared by his PCP for surgery today and he has been cleared for SCDs as his perioperative pxx for DVT per hematology (Caprini is actually 5)
[2024-05-05] MEDS: Clindamycin 900 MG/50 ML BAG 75 MG IV (11:28)
--- NOTE | 2024-05-05 12:00 | BONBX_PTH ---
PATIENT: RABIA ALCANTARA LOC: MS3 U#:[id number] AGE/SX: 68/M ROOM: [facility] [place] RE05/05/[address]: Dr. Rabia Cortes MD : [id number] BED: 1 DIS: 05/07/2024 SPEC #: [id number] RECD: 05/05/24 13:43 STATUS: PRAVEENA REGwendolyn #: [id number] CHRIS: 05/05/24 12:[address]: Rabia Cortes DEPT: SURGICAL PATHOLOGY RECD BY: Jessica Westbrook ENTERED: 05/06/24 06:41 SP TYPE: Bone OTHR DR: No Primary Care Phys Tissues: A - Skin of back, NOS B - Sacral region C - Bone of lower extremity, NOS Procedures: Decalcification bone/plaque Surgery Specimen Level IV Surgery Specimen Level V HEADER OPERATION: Excision sacral wound, biopsy of wound, bone biopsy PRE-OP DIAGNOSIS: Wound of sacral region TISSUE SUBMITTED: A- Central upper back lesion (long stitch-right lateral, short stitch- superior), B- Sacral wound (long stitch- right lateral, short stitch- superior)- rule out cancer, C- Sacral bone MICROSCOPIC DIAGNOSIS A. Central upper back lesion, excisional biopsy: Basal cell carcinoma, completely excised. B- Sacral wound, biopsy: Ulceration, acute and chronic inflammation and granulation tissue reaction. Pseudoepitheliomatous hyperplasia. C- Sacral bone, biopsy: A piece of bone with reactive changes and negative for acute osteomyelitis. SJ: 05/07/2024 COMMENT Case has been reviewed in consultation with Dr. Heart who concurs with the above diagnosis. IDC:AM MICROSCOPIC DESCRIPTION Slides are reviewed. GROSS DESCRIPTION A. Received in fixative is one container labeled with the patient's name and designated Central upper back lesion. The specimen consists of a piece of sandhu-white skin measuring 1.5 x 1.5cm and up to 0.5cm in thickness. The specimen is inked as follows: superior- blue, inferior-green, lateral-black, medial-yellow. The specimen is serially sectioned and submitted entirely in two cassettes. Cassette 1 contains superior and inferior portions of the specimen. B. Received in fixative is one container labeled with the patient's name and designated Sacral wound. The specimen consists of a gracie shaped piece of skin measuring 2.2 x 1.9cm and up to 0.5cm in thickness. There is a central defect measuring 1.0 x 0.8cm. The specimen is inked as follows: superior tip to lateral tip-yellow, lateral tip to inferior tip- black, inferior tip to medial tip- blue, medial tip to superior tip- green. The specimen is serially sectioned and submitted entirely in two cassettes. C. Received in fixative is one container labeled with the patient's name and designated Sacral bone. The specimen consists of piece of bone measuring 0.5 x 0.2 x 0.1cm. The entire specimen is submitted in one cassette after decalcification. SJJuliannamr 05/06/2024 TC:0 CPT:79499p2, 69107
[2024-05-05] MEDS: Bupiv/Epi 0.25% 30 ML Vial (12:09)
[2024-05-05 15:03] LABS: M R Staph aureus DNA By PCR Negative (Negative); Staph aureus DNA By PCR NEGATIVE (Negative)
[2024-05-05 15:04] LABS: M R Staph aureus DNA By PCR Negative (Negative); Probe Check PASS; Specimen Processing Control PASS; Staph aureus DNA By PCR NEGATIVE (Negative)
[2024-05-05 15:24] LABS: Hemoglobin A1c 5.7 % (3.8-5.6)
[2024-05-05 15:26] LABS: Albumin, Serum 3.2 g/dL (3.2-5.0)
--- NOTE | 2024-05-05 16:13 | PCM.POST.ANE ---
Anesthesia: Postop Eval I Current Vital Signs Temperature: 97.3 F Pulse Rate: 66 Blood Pressure: 117/56 Respiratory Rate: 16 Pulse Ox: 95 Oxygen Delivery Method: Nasal Cannula Oxygen Flow Rate (L/min): 2 Assessment Airway patent: Yes Spontaneous unlabored respirations: Yes Mental status: Awake and Calm nausea: No Vomiting: No Anesthesia Complication: No Fluid Hydration Crystalloid volume administer (ml): 1,000 Total IV fluid infused: 1,000 Progress Note Anesthesia document: Postop Eval 1 completed: Yes
--- NOTE | 2024-05-05 16:48 | OP.PCM_ITS ---
Operative Report Date of Procedure: 05/05/24 Surgery/Procedure Date: 05 May 2024 Incision/Procedure Start Time: 12:01 pm Incision Close/Procedure End Time: 12: 48 pm PATIENT: Clive Betancourt SURGEON: Clive Cortes MD PRE-OPERATIVE DIAGNOSIS: Sacral Wound POST-OPERATIVE DIAGNOSIS: Same PROCEDURE PERFORMED: 1) Excision of sacral wound, including necrotic skin, subcutaneous tissue, fascia, muscle, and bone, 2 x 2 cm (CPT: 55031) -- Wound was sent for pathologic analysis 2) Bone biopsy of sacral bone for pathology analysis and for cultures (CPT: 62616 - Deep Bone Biopsy) 3) Irrigating wound VAC placement (Veraflow), not disposable, < 50 cm ^ 2 (CPT: 69385) 4) Biopsy pigmented mid central back lesion, 1 x 1.3 cm with 5 mm margins around (CPT: 69777 - 59 modifier) OPERATIVE FINDINGS: * The bone of the sacrum that was remained at the base of the wound following excision felt solid and looked and appeared healthy. INDICATIONS: Clive Betancourt is a 68-year-old male who has been dealing with a sacral wound for approximately 2 years now since being hospitalized for COVID. He presents today for excision of the wound with analysis of the wound from pathology to rule out a squamous cell cancer. He also has a concerning pigmented mid central back lesion that he would like completely removed and examined. He understands the risks and benefits of surgery, including bleeding, infection, need for repeat surgeries and failure to obtain the desired result, continued chronic wound, and complications from anesthesia including . He elected to proceed. OPERATIVE DETAILS: Patient was correct identified in the preoperative holding and taken back to the operating room where he was administered general anesthesia. He was flipped in the prone position and care was taken to pad all the bony prominences and pressure points, as well as protect his face and eyes and genitalia. He was prepped and draped in sterile fashion and all proper timeouts were performed. We began the procedure by excising the pigmented mid central back lesion, which was 1 x 1.3 cm. I excised it with 5 mm margins with a 15 blade scalpel. It was oriented with a long right lateral silk stitch and a short superior silk stitch. The excision was down to Bing's fascia. The wound was irrigated and closed with 3-0 Monocryl deep dermal sutures and 3-0 Monocryl running subcuticular with Steri-Strips. All instruments used in this excision were then removed from the field and not used for the rest of procedure. The specimen was sent to pathology. We then turned our attention to the sacral wound which was excised with a 10 blade scalpel for 2 x 2 cm excision of necrotic skin, subcutaneous tissue, fascia, muscle and bone, the bone was excised with a rongeur. The entire excision was 2 x 2 cm. A deep soft tissue culture was obtained from healthy bleeding soft tissue adjacent to the base of the wound. After the necrotic bone was excised with a rongeur, the wound was irrigated with copious amounts normal saline (3 L). The healthy appearing bone at the base of the wound was then biopsied with a clean rongeur for pathologic analysis, and was also biopsied with a clean rongeur for culture. Hemostasis was obtained with Bovie electrocautery. 500 cc of Irrisept was then used to irrigate the wound. The patient tolerated the procedure well. The irrigating wound VAC was placed for a total of less than 50 cm? of the not disposable irrigating wound VAC. He was awaken and flipped to the supine position carefully and placed on his side to pressure offload the wound. He was taken the PACU in stable condition. Specimens: 1) Sacral wound excision for pathology rule out cancer 2) sacral wound deep soft tissue culture 3) sacrum bone biopsy for pathologic examination 4) sacrum bone biopsy for cultures 5) mid central back pigmented lesion excision for permanent section, rule out skin cancer EBL: 25 cc Anesthesia: General anesthesia in the prone position with 15 cc quarter percent Marcaine with epinephrine 1-200.000 for a block IV fluids: 1 L lactated Ringer's Urine output: Unmeasured no Russell POST-OPERATIVE PLAN: Patient will be admitted to my service for the irrigating wound VAC. Pressure offloading orders including an air bed have been initiated. We will follow-up the wound cultures. Likely removal of wound VAC on 07 May 2024 and placement of a home wound VAC (anticipated discharge on 07 May on Friday). Follow-up in the wound care center on Friday, 10 May 2024, to review pathology. Pressure offloading bed has been ordered for him for home. Tentative plan for reconstruction of the wound on 12 May 2024 if there is no signs of skin cancer and the chronic nonhealing wound.
[2024-05-05] MEDS: Metoprolol Tartrate 50 MG Tablet PO (21:14)
[2024-05-06] VITALS (8 sets, daily range): BP systolic 130–148; BP diastolic 63–79; PULSE 73–93; RESP 16–18; TEMP 36.2–36.7; O2SAT 92–95
[2024-05-06] MEDS: oxyCODONE 5 MG Tablet PO ×2 (01:10→14:44)
[2024-05-06 07:07] LABS: Hematocrit 44.2 % (40-54); Hemoglobin 14.5 g/dL (13.0-16.5); Mean Corp Hgb Conc 32.8 g/dL (32-36); Mean Corpuscular Hgb 27.7 pg (27.0-32.0); Mean Corpuscular Volume 84.4 fL (80-94); Mean Platelet Vol. 9.5 fl (6.2-12.0); Platelet Count 202 K/mm3 (150-450); RBC Distribution Width CV 13.3 % (11.6-14.6); RBC Distribution Width SD 40.9 fl (35.1-43.9); Red Blood Count 5.24 M/mm3 (4.6-6.2); White Blood Count 11.4 K/mm3 (4.4-11.0)
[2024-05-06 08:20] LABS: Anion Gap 6 (5-15); BUN 15 mg/dL (7-18); BUN/Creat Ratio 17.9 RATIO (10-20); Calcium,Total 8.5 mg/dL (8.5-10.1); Chloride 107 mmol/L (98-107); Creatinine, Serum 0.84 mg/dL (0.70-1.30); EST Glomerular Filtration Rate 96 mL/min (>60); Est Glom Filt Rate - Afr Amer 116 mL/min (>60); Estimated Creatinine Clearance 89.79 ml/min; Glucose 115 mg/dL (74-106); Potassium 3.6 mmol/L (3.5-5.1); Sodium Level 139 mmol/L (136-145)
[2024-05-06] MEDS: Losartan Potassium 100 MG Tablet PO (09:32)
[2024-05-06] MEDS: Metoprolol Tartrate 50 MG Tablet PO ×2 (09:33→21:30)
[2024-05-06] MEDS: hydroCHLOROthiazide 25 MG Tablet PO (09:33)
[2024-05-06] MEDS: Enoxaparin 40 MG/0.4 ML Syringe SC (09:34)
[2024-05-06] MEDS: Ezetimibe 10 MG Tablet PO (09:34)
--- NOTE | 2024-05-06 12:52 | CASEMGMT ---
Addendum entered by Patricia Shah 05/06/24 16:24: Per [employer], they are awaiting a prior authorization from pt insurance for low air loss mattress. Original Note: TYLER CASTILLO Assessment: Face to Face with pt for initial transition planning/care coordination assessment. TYLER CASTILLO introduced self and role at [facility], pt voices understanding and consents to assessment. Pt is A&O x4 and answers all questions appropriately at this time. Pt asks for this RN CM to call his and discuss on speakerphone. TC to , placed on speakerphone, pt and answered assessment questions. Care providers, pharmacy, and demographics verified/updated. Admitting Dx: sacral wound Strata Score: NA- was marked as SDC PCP:Wilfrido Christy Specialists:[facility] in [place]; [facility] amilcar Crespo Preferred Pharmacy: [facility] Insurance: [facility] [place] Prescription Benefit: yes LNOK: Erin Betancourt, ; Betina Kane, dtr Living Arrangements: Pt lives with in a single story home with a ramp to enter from the garage. Pt was I in ADLs and assisted with laundry, dishes and getting groceries prior to surgery. Pt prepares meals. Pt denies concerns at home. Transportation: Pt drives self and denies concerns with transportation. DME:hosp bed, oxygen through [employer] with portability for CPAP, walker, rollator HHC/SNF: Pt has had [facility] and [place] in the past. Pt has been to [place] at [facility] Pt states no concerns with going home at time of dc. Pt states a low air loss mattress has been ordered through [employer] but she is being told that it cannot be delivered as they are awaiting information from Medicare. Email sent to [employer] to confirm if any further information is needed and to help try to facilitate this. Pt was performing wound care for pt. She has patched the wound vac in the past when needed and feels comfortable doing this. Pt has an appt at the [facility] on Friday at 3 or 3:30pm. Pt then plans on coming back for OR on 05/12/24. Discussed pt with Elieser KLEIN regarding HHC prior to assessment with pt, pt does not currently need HHC set up at this time d/t these appts. This will further be assessed after OR on Friday. Pt and aware of this. Pt and state no further concerns/needs. CM to follow. Advised pt to ask CM if any further question/concerns/needs arise, voices understanding. Pt Goal: Home Plan: Home [facility]OTT CM
--- NOTE | 2024-05-06 13:06 | PN.SURG_ITS ---
<Statement entered by Clive Cortes MD - 05/06/24 20:04> Pt seen & evaluated w/MELIZA. I personally interviewed & exam the pt. I was involved in all aspects of pt's orders, interpretation of results & treatment I agree with the plan Continue to perform irrigation of the wound with the irrigating wound VAC. Follow-up cultures. We will engage ID if they grow anything then placed him on antibiotics in preparation for reconstruction. Subjective Subjective Postop #1 Patient resting in bed. States he is having minimal discomfort. He states he is eating well and would like to go home. Objective Data Objective Data Vital Signs: Vital Signs Temp Pulse Resp BP Pulse Ox O2 Del Method O2 Flow Rate 97.8 F 86 16 138/78 H 94 Room Air 2 05/06/24 09:05/06/24 09:33 05/06/24 09:29 05/06/24 09:33 05/06/24 09:29 05/06/24 09:05/06/24 06:13 Oxygen Flow Rate (L/min) 2 Oxygen Delivery Method Room Air Weight: 193 lb 12.581 oz Body Mass Index (BMI) 28.6 Intake & Output: Intake and Output for Last 24 Hours 05/04/24 05/05/24 05/06/24 23:59 23:59 23:59 Intake Total 1050 / 1050 243.75 / 243.75 Output Total 950 / 950 Balance 1050 / 850 -706.25 / -706.25 Lab / Micro Data Attestation: I reviewed the patient's lab results. 05/06/24 06:24 05/06/24 06:24 Labs: Laboratory Results - last 24 hr 05/05/24 13:11: S.aureus Protein A PCR NEGATIVE 05/05/24 13:11: S.aureus Protein A PCR NEGATIVE, MRSA (PCR) Negative 05/05/24 13:11: MRSA (PCR) Negative 05/05/24 14:35: Hemoglobin A1c 5.7 H, Albumin 3.2 05/06/24 06:24: WBC 11.4 H, RBC 5.24, Hgb 14.5, Hct 44.2, MCV 84.4, MCH 27.7, MCHC 32.8, RDW Std Deviation 40.9, RDW Coeff of Williams 13.3, Plt Count 202, MPV 9.5, Sodium 139, Potassium 3.6, Chloride 107, Carbon Dioxide 26.0, Anion Gap 6, BUN 15, Creatinine 0.84, Estim Creat Clear Calc 89.79, Est GFR (MDRD) Af Amer 116, Est GFR (MDRD) Non-Af 96, BUN/Creatinine Ratio 17.9, Glucose 115 H, Calcium 8.5 Micro: Microbiology 05/05/24 13:11 Bone - Sacral Bone Gram Stain - Final 05/05/24 13:11 Wound - Sacral Gram Stain - Final Physical Exam Const alert, oriented x3 and no apparent distress Resp normal respiratory effort and normal air movement Effort and Inspection: able to speak in complete sentences Cardio regular rate and regular rhythm GI soft to palpation, non-tender and non-distended Extremity normal to inspection and full ROM Skin Wound Narrative: Veriflow wound VAC dressing in place with a good seal. Patient is tolerating it well. Neuro oriented x3 Psych mental status grossly normal, thought process normal and cooperative Assessment & Plan Assessment/Plan (1) Wound of sacral region: (2) At low risk for deep venous thrombosis: PLAN: Plan Patient is doing well with minimal discomfort. Received his daily dose of Lovenox. Operative tissue and bone cultures pending. Waiting for approval for home wound VAC. Plan is discharge home tomorrow. He will follow up with Dr. Cortes on Friday at the wound center at 1515. Discussed plan of care with Dr. Cortes.
[2024-05-06] MEDS: Acetaminophen 325 MG Tablet 650 MG PO (14:43)
[2024-05-06] MEDS: Ensure Plus High Protein 120 ML LIQUID PO ×2 (16:42→21:30)
[2024-05-06] MEDS: 0.9% Saline Lock 10 ML Syringe IV (21:31)
[2024-05-06] MEDS: DiphenhydrAMINE 25 MG Capsule 50 MG PO (21:35)
[2024-05-07 03:50] VITALS: BP 148/76; PULSE 67; RESP 16; TEMP 36.4; O2SAT 95
--- NOTE | 2024-05-07 07:35 | PCM.PN.SRG ---
Subjective Subjective Doing well today. Pain controlled. He's been pressure offloading his wound. Tolerating vac No fevers chills. Sleeping well on air mattress. Objective Data Objective Data CPAP in place, no increased WOB Doing well with IS (nearly 2K) SCDS on and activated. VAC holding suction over sacral wound, pressure offloaded. No pressure points from the tubing. VAC fluid is SS. Vital Signs: Vital Signs Temp Pulse Resp BP Pulse Ox O2 Del Method O2 Flow Rate 97.5 F L 67 16 148/76 H 95 CPAP 2 05/07/24 03:50 05/07/24 03:50 05/07/24 03:50 05/07/24 03:50 05/07/24 03:50 05/07/24 03:50 05/06/24 06:13 Oxygen Flow Rate (L/min) 2 Oxygen Delivery Method CPAP Weight: 193 lb 12.581 oz Body Mass Index (BMI) 28.6 Intake & Output: Intake and Output for Last 24 Hours 05/05/24 05/06/24 05/07/24 23:59 23:59 23:59 Intake Total 1050 / 1050 243.75 / 243.75 Output Total 1850 / 1850 1000 / 1000 Balance 1050 / 850 -1606.25 / -1606.25 -1000 / -1000 Lab / Micro Data 05/06/24 06:24 05/06/24 06:24 Labs: Laboratory Results - last 24 hr 05/06/24 06:24: Sodium 139, Potassium 3.6, Chloride 107, Carbon Dioxide 26.0, Anion Gap 6, BUN 15, Creatinine 0.84, Estim Creat Clear Calc 89.79, Est GFR (MDRD) Af Amer 116, Est GFR (MDRD) Non-Af 96, BUN/Creatinine Ratio 17.9, Glucose 115 H, Calcium 8.5 Micro: Microbiology 05/05/24 13:11 Bone - Sacral Bone Gram Stain - Final 05/05/24 13:11 Wound - Sacral Gram Stain - Final Assessment & Plan Assessment/Plan (1) Wound of sacral region: PLAN: Pain: Tylenol and oxycodone Resp: CPAP at night and IS consistently Cardiovascular: Metoprolol for HTN GI: Miralax PRN : No issues voiding post op, continue to monitor ID: We will consult infectious disease today for positive cultures of the soft tissue from the OR (Anaerobic growth). Continue Vera[employer] VAC to clean/wash wound over the weekend DVT pxx: Lovenox 40 mg SubQ daily and SCDs, ambulate today with nursing help Charges/Coding Procedures Integumentary [id number]: [id number] Global Visit
[2024-05-07 08:12] LABS: Prealbumin 29 mg/dL (10-36)
[2024-05-07 09:32] VITALS: BP 107/67; PULSE 82; RESP 18; TEMP 36.8; O2SAT 94
[2024-05-07 09:37] VITALS: PULSE 82
[2024-05-07] MEDS: Ezetimibe 10 MG Tablet PO (09:37)
[2024-05-07] MEDS: Metoprolol Tartrate 50 MG Tablet PO (09:37)
[2024-05-07] MEDS: hydroCHLOROthiazide 25 MG Tablet PO (09:38)
[2024-05-07] MEDS: Enoxaparin 40 MG/0.4 ML Syringe SC (09:38)
[2024-05-07] MEDS: 0.9% Saline Lock 10 ML Syringe IV (09:39)
[2024-05-07] MEDS: Ensure Plus High Protein 120 ML LIQUID PO ×3 (09:41→16:53)
--- NOTE | 2024-05-07 12:03 | WOUNDNOTE ---
wound photo: sacrum
--- NOTE | 2024-05-07 13:17 | CON.PCM.ID_ITS ---
Assessment & Plan Assessment/Plan (1) Pressure ulcer of sacral region, stage 4: PLAN: Wound cx a month ago with msse, corynebacter, and anaerobes. Given course of augmentin at that time. No systemic signs or symptoms of infection. Taken to OR for scheduled I&D on 05/05/[address] Cortes. Wound cx and bone cx remain neg at 48 hours, no organisms seen on gram stain. Ok for discharge with surgical followup, agree with continuing to monitor off of abx at this point. Will follow as needed, thank you HPI Consult Data Date of Consult: 05/07/24 HPI Narrative Reason for Consultation: decub ulcer HPI Narrative: CLIVE ALCANTARA, is a 68 M with nonhealing sacral ulcer for past 2.5 years after admit for covid. Following at wound center. Wound cx a month ago with msse, corynebacter, and anaerobes. Given course of augmentin at that time. Has been feeling ok, some soreness at ulcer site. No fever, no n/v/d. Taken to OR for scheduled I&D on 05/05/[address] Cortes, went down to bone and placement of wound vac. Full ROS performed and neg except as noted above. [facility] Medical History Loss of hearing Wears glasses Wears partial dentures Wears dentures Hypoglycemia Pressure ulcer Anemia Easy bruising Migraine headache Non-smoker On home oxygen therapy CPAP (continuous positive airway pressure) dependence History of edema Cardiology follow-up encounter History of irregular heartbeat History of echocardiogram Pulmonary embolism DVT (deep venous thrombosis) History of pressure ulcer History of acute respiratory failure Personal history of COVID-19 Pressure ulcer of sacral region, stage 4 Pneumonia due to COVID-19 virus Acute respiratory failure with hypoxia Narcolepsy Asthma Stroke/cerebrovascular accident Hypertension Home Medications ?Medication ?Instructions ?Recorded ?Last Taken ?Type clonidine 0.2 mg/24 hr weekly 1 patch transdermal QWEEK 02/07/23 05/04/24 History transdermal patch losartan 100 1 tab PO DAILY 02/07/23 05/04/24 History mg-hydrochlorothiazide 25 mg tablet (Hyzaar) metoprolol tartrate 50 mg tablet 50 mg PO BID 02/07/23 05/05/24 History oxycodone-acetaminophen 5 mg-325 1 tab PO Q6H PRN pain (scale score 06/20/23 Unknown Rx mg tablet (Percocet) 7-10) 7 days #28 tabs ezetimibe 10 mg tablet 10 mg PO DAILY 03/17/24 05/04/24 History albuterol sulfate 90 mcg/actuation 2 inh inhalation Q6H PRN ASTHMA 04/26/24 Unknown History aerosol inhaler (Proventil HFA) diphenhydramine HCl 50 mg capsule 50 mg PO QHS PRN sleep 04/28/24 05/04/24 History prune lax 1 dose PO DAILY PRN constipation 04/28/24 Unknown History Allergy/AdvReac Type Severity Reaction Status Date / Time cephalexin (From Keflex) Allergy Rash Verified 05/06/24 14:59 theophylline Allergy Rash Verified 05/06/24 14:59 Family History Father Hypertension Surgical History (Updated 05/06/24 @ 15:11 by Arvin Ricks) History of cardiac catheterization Hx of surgical procedure History of cholecystectomy History of hernia repair Status post tracheostomy Status post insertion of percutaneous endoscopic gastrostomy (PEG) tube Social History household members: spouse Smoking Status: Never smoker alcohol intake: never substance use type: does not use Physical Exam Const alert, oriented x3 and no apparent distress General Appearance: cooperative HEENT normocephalic and head/scalp atraumatic Eyes PERRL and EOMs intact bilaterally Neck supple and No nodes Resp normal air movement and clear to auscultation bilaterally Cardio regular rate and regular rhythm GI soft to palpation, non-tender and non-distended Extremity General Extremity: Negative for edema Skin Skin Narrative: reviewed wound photos Neuro CN's II-XII intact bilaterally Lab / Micro Data Attestation: I reviewed the patient's lab results. 05/06/24 06:24 05/06/24 06:24 Labs: Laboratory Results - last 24 hr 05/05/24 14:35: Prealbumin 29 Micro: Microbiology 05/05/24 13:11 Bone - Sacral Bone Gram Stain - Final 05/05/24 13:11 Bone - Sacral Bone Wound Culture - Final No growth aerobically. 05/05/24 13:11 Bone - Sacral Bone Anaerobic Culture - Preliminary No growth in 48 hours. 05/05/24 13:11 Wound - Sacral Gram Stain - Final 05/05/24 13:11 Wound - Sacral Wound Culture - Final No growth aerobically. 05/05/24 13:11 Wound - Sacral Anaerobic Culture - Preliminary No growth in 48 hours.
[2024-05-07 14:36] VITALS: BP 130/65; PULSE 72; RESP 18; TEMP 36.9; O2SAT 94
--- NOTE | 2024-05-07 16:00 | PCM.DC.SUM ---
Providers Date of Admission: 05/05/24 Primary Care Physician: No Primary Care Phys Consultations 05/06/24 20:51 Consult: Infectious Disease Routine Consulting Provider: Clive Shaver Reason for Consult: positive operative bone cultures EMERGENT Consult: No MD Notified: Yes Date Notified: 05/07/24 Time Notified: 06:42 Method of Notification: Answering Service Reason For Visit: SACRAL WOUND Diagnosis Discharge Diagnosis (1) Pressure ulcer of sacral region, stage 4: Status: Chronic Code(s): L89.154 - Pressure ulcer of sacral region, stage 4 Medications at Discharge Home Medications clonidine 0.2 mg/24 hr weekly transdermal patch 1 patch transdermal QWEEK 02/07/23 losartan 100 mg-hydrochlorothiazide 25 mg tablet (Hyzaar) 1 tab PO DAILY 02/07/23 metoprolol tartrate 50 mg tablet 50 mg PO BID 02/07/23 oxycodone-acetaminophen 5 mg-325 mg tablet (Percocet) 1 tab PO Q6H PRN pain (scale score 7-10) 7 days #28 tabs 06/20/23 ezetimibe 10 mg tablet 10 mg PO DAILY 03/17/24 albuterol sulfate 90 mcg/actuation aerosol inhaler (Proventil HFA) 2 inh inhalation Q6H PRN ASTHMA 04/26/24 diphenhydramine HCl 50 mg capsule 50 mg PO QHS PRN sleep 04/28/24 prune lax 1 dose PO DAILY PRN constipation 04/28/24 Hospital Course Summary of Care Provided Hospital Course: Clive Wilson is a 68-year-old male with a sacral wound of 2 years duration. He was taken to the OR on 05 May 2024 for excision of the sacral wound. Cultures were obtained and the wound was sent for pathologic examination to rule out a squamous cell cancer. He was admitted and there was no growth to date from the cultures at 48 hours. His hospital course was uneventful. He had an irrigating wound VAC and a pressure offloading bed during his hospital course. The wound VAC was changed on postop day 2 to a normal wound VAC for discharge. Physical Exam Narrative Wound healthy appearing. No signs of infection. VAC changed on rounds. Weight / BMI Weight Weight: 193 lb 12.581 oz Body Mass Index (BMI) 28.6 ABG / Lab / Microbiology Data 05/06/24 06:24 05/06/24 06:24 Laboratory: Laboratory Results - last 24 hr 05/05/24 14:35: Prealbumin 29 Microbiology: Microbiology 05/05/24 13:11 Bone - Sacral Bone Gram Stain - Final 05/05/24 13:11 Bone - Sacral Bone Wound Culture - Final No growth aerobically. 05/05/24 13:11 Bone - Sacral Bone Anaerobic Culture - Preliminary No growth in 48 hours. 05/05/24 13:11 Wound - Sacral Gram Stain - Final 05/05/24 13:11 Wound - Sacral Wound Culture - Final No growth aerobically. 05/05/24 13:11 Wound - Sacral Anaerobic Culture - Preliminary No growth in 48 hours. Meaningful Use Info Meaningful Use Meaningful Use Diagnoses (Choose all that apply): None applicable Ischemic Stroke Statin Dosing Therapy Reference: STATIN DOSE THERAPY REFERENCE: * Patients > 75 years receive moderate or high dose statin therapy. * Patients 75 years or YOUNGER should receive HIGH intensity statin dose unless contraindicated. You will be required to document reason for non-treatment if statin daily dose does not meet guidelines. HIGH DOSE STATIN THERAPY DAILY Atorvastatin > than or = to 40 mg Rosuvastatin > than or = to 20 mg Amlodipine + Atorvastatin > than or = to 2.5/40 mg Ezetimibe + Simvastatin 10/80 mg Simvastatin 80mg Discharge Plan Admission Admit Date/Time: 05/05/24 13:23 Attending Provider: Clive Cortes Primary Care Provider: Care PhysicianAna Primary Consulting Providers: Clive Shaver Discharge Orders/Prescriptions Prescriptions: No Action prune lax 1 dose PO DAILY PRN (Reason: constipation) Patient Comments: gummy diphenhydramine HCl 50 mg capsule 50 mg PO QHS PRN (Reason: sleep) clonidine 0.2 mg/24 hr Patch Weekly 1 patch TRANSDERMAL QWEEK Patient Comments: patch new 05/04/24; right arm losartan-hydrochlorothiazide [Hyzaar] 100-25 mg Tablet 1 tab PO DAILY metoprolol tartrate 50 mg tablet 50 mg PO BID oxycodone-acetaminophen [Percocet] 5-325 mg tablet 1 tab PO Q6H PRN (Reason: pain (scale score 7-10)) 7 Days Qty: 28 0RF ezetimibe 10 mg tablet 10 mg PO DAILY albuterol sulfate [Proventil HFA] 90 mcg/actuation HFA aerosol inhaler 2 inh inhalation Q6H PRN (Reason: ASTHMA) Referrals / Follow Up: Wilfrido Prado MD [Non-Staff] - Disposition Disposition (needs filled in before D/C Order can be placed): Home, Self Care
--- NOTE | 2024-05-07 16:02 | CASEMGMT ---
Received confirmation from [facility] that the authorization for the low air loss mattress is still pending. Updated charge nurse.
--- NOTE | 2024-05-07 16:10 | DCINST_ITS ---
Discharge Instructions Diet Discharge Diet: No restrictions (high protein diet) Activity Discharge Activity: May Not Shower Additional Activity Instructions:: Encourage to ambulate. Avoid sitting for long periods of time and laying on back (avoid pressure to sacral area) Dressing / Incision Call your doctor if your incision/area has: Continuous Slow Oozing, Sudden Increased Bleeding, Increased Pain/ Swelling, Increased Redness and Foul Smelling Discharge Call your doctor if you observe: Fever of 101 or Higher, Inability to urinate, Inability to have a bowel movement, Shortness of breath, Chest pain, Calf discomfort and Uncontrolled pain Change Dressing in: leave in place till F/U Remove Dressing in: leave in place till F/U Additional Dressing/Incision Instructions:: Wound VAC at 125 mmHg. Will change on Friday at the wound healing center Follow Up Care Please Follow Up With: Clive Cortes MD When: Friday, May 10, 2024 at scheduled time. Test Results: Test results from this visit will be discussed in further detail at your follow- up appointment, if applicable. Pending Tests Upon Discharge: Wound cultures Discharge Plan Admission Admit Date/Time: 05/05/24 13:23 Attending Provider: Clive Cortes Primary Care Provider: Care Physician,No Primary Consulting Providers: Clive Shaver Discharge Orders/Prescriptions Prescriptions: New oxycodone 5 mg capsule 5 mg PO Q6H PRN (Reason: pain (scale score 7-10)) 7 Days Qty: 28 0RF ondansetron 4 mg tablet,disintegrating 4 mg PO Q8H PRN (Reason: nausea and vomiting) 5 Days Qty: 10 0RF Continued prune lax 1 dose PO DAILY PRN (Reason: constipation) Patient Comments: gummy diphenhydramine HCl 50 mg capsule 50 mg PO QHS PRN (Reason: sleep) clonidine 0.2 mg/24 hr Patch Weekly 1 patch TRANSDERMAL QWEEK Patient Comments: patch new 05/04/24; right arm losartan-hydrochlorothiazide [Hyzaar] 100-25 mg Tablet 1 tab PO DAILY metoprolol tartrate 50 mg tablet 50 mg PO BID ezetimibe 10 mg tablet 10 mg PO DAILY albuterol sulfate [Proventil HFA] 90 mcg/actuation HFA aerosol inhaler 2 inh inhalation Q6H PRN (Reason: ASTHMA) Discontinued oxycodone-acetaminophen [Percocet] 5-325 mg tablet 1 tab PO Q6H PRN (Reason: pain (scale score 7-10)) 7 Days Qty: 28 0RF Referrals / Follow Up: Wilfrido Prado MD [Non-Staff] - Disposition Disposition (needs filled in before D/C Order can be placed): Home, Self Care
--- NOTE | 2024-05-07 16:30 | NURSING ---
remains on specialty low air loss matress
--- NOTE | 2024-05-11 13:21 | CASEMGMT ---
Email to Skyla at [facility] [place] on status of pressure reducing mattress. She states this is still pending. Pt is planned to have OR tomorrow.
== END 2024-05-07 18:52 | disposition home or self-care (01) | DRG 572 ==
LOC: SDC 05-06 08:44 → MS3 05-06 08:44
PROVIDERS: Admitting Provider Surgery Plastic and Reconstructive Surgery; Referring Provider Surgery Plastic and Reconstructive Surgery; Visit Provider Surgery Plastic and Reconstructive Surgery
PROC: 0JB70ZZ Excision of Back Subcutaneous Tissue and Fascia, Open Approach (ICD-10-PCS; principal; 2024-05-05 11:45)
DX: L89.154 Pressure ulcer of sacral region, stage 4 (principal); C44.519 Basal cell carcinoma of skin of other part of trunk; I10 Essential (primary) hypertension; Z79.899 Other long term (current) drug therapy; Z86.16 Personal history of COVID-19; Z86.73 Personal history of transient ischemic attack (TIA), and cerebral infarction without residual deficits
CPT/HCPCS: 36415; 80048; 80053; 82040; 83036; 84134; 85025; 85027; 87015; 87070; 87075; 87102; 87116; 87176; 87205; 87206; 87640; 88305; 88307; 88311; 94668; 97802; J7120; A4216

== ENCOUNTER 2024-05-12 13:39 | Inpatient (IN) | payer MEDICARE, BC, SELFPAY ==
[2024-05-12] VITALS (15 sets, daily range): BP systolic 117–137; BP diastolic 45–70; PULSE 67–92; RESP 16–20; TEMP 36.1–36.6; O2SAT 92–98; BMI 29.2
--- NOTE | 2024-05-12 07:16 | HP.PCM.SX_ITS ---
HPI - General HPI Narrative RABIA ALCANTARA, is a 68 M who presents for sacral wound reconstruction. Current Encounter (DATE OF SURGERY H&P UPDATE): I saw and examined the patient this morning in pre-operative holding. We discussed risks and benefits of today's surgery and they would like to proceed. NO CHANGE in health history since last seen and evaluated. Ready to proceed with surgery. [facility] Medical History Loss of hearing Wears glasses Wears partial dentures Wears dentures Hypoglycemia Pressure ulcer Anemia Easy bruising Migraine headache Non-smoker On home oxygen therapy CPAP (continuous positive airway pressure) dependence History of edema Cardiology follow-up encounter History of irregular heartbeat History of echocardiogram Pulmonary embolism DVT (deep venous thrombosis) History of pressure ulcer History of acute respiratory failure Personal history of COVID-19 Pressure ulcer of sacral region, stage 4 Pneumonia due to COVID-19 virus Acute respiratory failure with hypoxia Narcolepsy Asthma Stroke/cerebrovascular accident Hypertension Home Medications ?Medication ?Instructions ?Recorded ?Last Taken ?Type clonidine 0.2 mg/24 hr weekly 1 patch transdermal QWEEK 02/07/23 05/12/24 History transdermal patch losartan 100 1 tab PO DAILY 02/07/23 05/04/24 History mg-hydrochlorothiazide 25 mg tablet (Hyzaar) metoprolol tartrate 50 mg tablet 50 mg PO BID 02/07/23 05/12/24 07:30 History ezetimibe 10 mg tablet 10 mg PO DAILY 03/17/24 05/04/24 History albuterol sulfate 90 mcg/actuation 2 inh inhalation Q6H PRN ASTHMA 04/26/24 Unknown History aerosol inhaler (Proventil HFA) diphenhydramine HCl 50 mg capsule 50 mg PO QHS PRN sleep 04/28/24 05/04/24 History prune lax 1 dose PO DAILY PRN constipation 04/28/24 Unknown History ondansetron 4 mg disintegrating 4 mg PO Q8H PRN nausea and 05/07/24 Unknown Rx tablet vomiting 5 days #10 tabs oxycodone 5 mg capsule 5 mg PO Q6H PRN pain (scale score 05/07/24 Unknown Rx 7-10) 7 days #28 caps Allergy/AdvReac Type Severity Reaction Status Date / Time cephalexin (From [facility]) Allergy Rash Verified 05/12/24 09:54 theophylline Allergy Rash Verified 05/12/24 09:54 Family History Father Hypertension Surgical History History of cardiac catheterization Hx of surgical procedure History of cholecystectomy History of hernia repair Status post tracheostomy Status post insertion of percutaneous endoscopic gastrostomy (PEG) tube Social History household members: spouse Smoking Status: Never smoker alcohol intake: never substance use type: does not use Physical Exam Narrative VAC in place over the wound, holding suction. Mid back wound incision healing well with no signs of dehiscence or infection. Assessment & Plan Assessment/Plan (1) Wound of sacral region: PLAN: Plan INTERVAL H&P PLAN, DATE OF SURGERY: We will proceed with surgery today. I talked the patient extensively about the risks of surgery, including bleeding, infection, damage to surrounding structures, surgical site dehiscence and wound formation, need for wound care, need for repeat operations (MAKING A LARGER WOUND UNINTENTIONALLY), failure to obtain the desired result, DVT/PE, and the risks of anesthesia including . All of their questions were answered, and they agreed to proceed with surgery.
--- NOTE | 2024-05-12 07:17 | OP.PCM_ITS ---
Operative Report Date of Procedure: 05/12/24 Surgery/Procedure Date: 12 May 2024 Incision/Procedure Start Time: 11:17 am Incision Close/Procedure End Time: 12:31 am (71 min) PATIENT: Clive Betancourt SURGEON: Clive Cortes MD PRE-OPERATIVE DIAGNOSIS: Sacral wound, 2 x 2 cm down full-thickness to presacral fascia/bone POST-OPERATIVE DIAGNOSIS: Same PROCEDURE PERFORMED: 1) Surgical preparation of sacral wound with sharp excision, down to necrotic fat fascia and muscle, 3 x 3 cm (CPT 97747) 2) Awith a Limberg (Rhombic) random-pattern flap, 7 x 9 cm (CPT 54070, 66406) OPERATIVE FINDINGS: Healthy wound down to viable, solid sacral bone. Overall ready for reconstruction. INDICATIONS: Clive Wilson is a 68-year-old male who has been dealing with a sacral wound for 2 years after being hospitalized with COVID-19 in the ICU. I took him to the operating room on 05 May 2024 for debridement. His bone cultures and soft tissue cultures did not grow any microorganisms, and his sacral wound did not demonstrate any concern for a skin cancer based on the pathologist's examination. He was placed in an irrigating wound VAC for 2 days followed by regular wound VAC. His blood sugars are controlled and his protein intake has been optimized. He is ready for flap reconstruction and understands the risks and benefits. He understands the risk of flap failure, wound problems, making a larger wound, and the need for consistent pressure offloading postoperatively (no sitting or laying on the wound for several weeks). He would like to proceed. OPERATIVE DETAILS: Patient was correctly identified in preoperative holding and taken back to the operating room he was administered general anesthesia and flipped into the prone position. Care was taken to pad all bony prominences and protect his face and eyes. A timeout was performed and then he was prepped and draped in sterile fashion. The macerated/scarred wound edges were excised with a 15 blade scalpel and a rongeur for surgical preparation of wounds with sharp excision, 3 x 3 cm. The wound was irrigated with 3 L of normal saline followed by 500 cc of Irrisept. Hemostasis was obtained with Bovie electrocautery. The defect was down to sacral bone. A deep soft tissue culture was obtained and sent. A right-sided Limberg/rhombic flap was designed adjacent to the gracie-shaped sacral wound/defect with care taken to create the appropriate 120 and 60 degree angles, and proper length. A 15 blade scalpel was used to cut the skin followed by dissection with Bovie electrocautery down to the fascial level. In the subfascial plane the rhomboid was developed and undermined, and it was rotat ed and advanced into position over the defect with minimal tension. A 15 Chinese Tunde drain was placed in the base of the wound and tunneled out lateral (on the right side) and sutured into place with a silk stitch. The flap was then inset into the defect with 2-0 PDS deep sutures in the deep fascia in [id number] fashion, followed by 3-0 PDS deep dermal sutures, followed by 3 -0 vertical m attress nylon sutures. 20 cc of 0.25% bupivacaine with epinephrine was then used to anesthetize the donor site incisions/sacral wound incisions. An incisional wound VAC was then applied with care taken to place Adaptic as an interface. The drain and the VAC were holding suction at the end of the case. The patient tolerated the procedure well. He was extubated and placed in a lateral decubitus position on a pressure offloading bed. EBL: 20 cc Preoperative antibiotic: 900 mg of Clindamycin IV Anesthesia: General anesthesia and a local block ASA: 3 IVF: 1 Liter of LR UOP: Unmeasured (no Russell) Transfusions: None Specimens: One deep soft tissue culture. POST-OPERATIVE PLAN: Patient is being admitted. Continue pressure offloading (no supine, no sitting). Continue incisional VAC until 17 May 2024. Nutrition consult. OK [facility] while in bed). OK to walk but needs assistance getting out of bed so that he doesn't sit.
--- NOTE | 2024-05-12 09:45 | PCM.PRE.AN2 ---
ASA Classification* ASA Classification ASA Classification: 3 Assessment & Plan Anesthesia* Anesthesia Assessment Anesthesia Assessment: Discussed sedation and/or anesthesia options, risks, benefits, and alternatives with patient/parents/legal guardian/POA. Questions invited. The patient/parents/legal guardian/POA seems to understand and agrees to proceed with anesthesia plan. Reviewed the physical assessment, medical history, allergy history and patient home medications list prior to surgery/procedure/anesthetic and documented any changes. Performed airway and anesthesia risk assessments. Anesthesia Type Anesthesia Type: General Anesthesia Focused Assessment* Airway Assessment Mouth opens: >3 cm Mallampati Score: II Focused Labs Anesthesia Preop lab: CBC WBC 11.4 K/mm3 (4.4-11.0) H 05/06/24 06:24 RBC 5.24 M/mm3 (4.6-6.2) 05/06/24 06:24 Hgb 14.5 g/dL (13.0-16.5) 05/06/24 06:24 Hct 44.2 % (40-54) 05/06/24 06:24 Plt Count 202 K/mm3 (150-450) 05/06/24 06:24 CHEMISTRY Potassium 3.6 mmol/L (3.5-5.1) 05/06/24 06:24 Sodium 139 mmol/L (136-145) 05/06/24 06:24 Magnesium 2.2 mg/dL (1.6-2.6) 08/08/21 03:40 Phosphorus 2.8 mg/dL (2.5-4.9) 08/03/21 03:20 BUN 15 mg/dL (7-18) 05/06/24 06:24 Creatinine 0.84 mg/dL (0.70-1.30) 05/06/24 06:24 Glucose 115 mg/dL (74-106) H 05/06/24 06:24 COAG PT 13.1 SECONDS (11.7-14.9) 06/12/23 12:50 Pre-Assessment Diagnosis/Proposed Procedure Planned Operative Procedure(s): FLAP RECONSTRUCTION SACRAL WOUND Anesthesia History 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 When Was Last Pacemaker Check QUESTION #4 FULL TEXT: You/Your Family Experience fever (hyperthermia) with Anesthesia Last Oral Intake Last Oral intake: Last Oral Intake NPO since Meds taken in AM with sips of water? Meds patient instructed to take am of surgery PONV PONV - photographic equipment assembler: PONV - photographic equipment assembler Female No 05/06/24 14:59 HX of Motion Sickness No 05/06/24 14:59 HX of N/V After Surgery No 05/06/24 14:59 Non-Smoker Yes 05/06/24 14:59 Duration of Surgery greater Yes 05/06/24 14:59 than 60 minutes Number of Risk Factors 2 05/06/24 14:59 PONV Score Moderate Risk 05/06/24 14:59 Height & Weight Height & Weight: Anesthesia: Height & Weight Height 5 ft 9 in 05/06/24 15:14 Respiratory Assessment Respiratory Assessment - photographic equipment assembler: Respiratory Tract Infection Hx - photographic equipment assembler Hx Respiratory Tract Infection No 05/06/24 14:59 STOP Sleep Apnea STOP Sleep Apnea - photographic equipment assembler: STOP Sleep Apnea - photographic equipment assembler Hx Hypertension Yes: CONTROLLED WITH MEDS 05/06/24 14:59 Hx Sleep Apnea No 05/06/24 14:59 CPAP Yes 05/05/24 13:01 BIPAP No 04/26/24 14:31 Do you snore loudly (louder No 05/06/24 14:59 than talking or can be heard Do you often feel tired/ No 05/06/24 14:59 fatigued/ sleepy during daytime? Has anyone observed you stop No 05/06/24 14:59 breathing during sleep? STOP Results Negative 05/06/24 14:59 QUESTION #5 FULL TEXT : Do you snore loudly (louder than talking or can be heard through closed doors)? 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 Specify any problems Hx of Preganancy in last 3 N/A 05/06/24 14:59 Months Nurse Filling Out Transfusion [email or web address] 05/06/24 14:59 & Questions: Date: 05/06/24 05/06/24 14:59 Time: 15:08 05/06/24 14:59 Patient unable to answer at this time (ie. confused, unrespo /Reproduction History /Reproductive History - photographic equipment assembler: /Reproductive Hx- photographic equipment assembler Hx Now Gestational Age (in weeks): EDC: Hx Hx Para Hx Section SAB No 04/26/24 14:31 Active Medications Active Medications: Current Medications Generic Name Dose Route Start Last Admin Trade Name Freq PRN Reason Stop Dose Admin Clindamycin Phosphate 900 mg in 50 mls @ 75 mls/hr 05/12/24 10:55 Cleocin IV 05/12/24 11:34 PREOP ONE Lactated Ringer's 1,000 mls @ 15 mls/hr 05/12/24 09:45 IV .Q48H BEHZAD PFSH Medical History Loss of hearing Wears glasses Wears partial dentures Wears dentures Hypoglycemia Pressure ulcer Anemia Easy bruising Migraine headache Non-smoker On home oxygen therapy CPAP (continuous positive airway pressure) dependence History of edema Cardiology follow-up encounter History of irregular heartbeat History of echocardiogram Pulmonary embolism DVT (deep venous thrombosis) History of pressure ulcer History of acute respiratory failure Personal history of COVID-19 Pressure ulcer of sacral region, stage 4 Pneumonia due to COVID-19 virus Acute respiratory failure with hypoxia Narcolepsy Asthma Stroke/cerebrovascular accident Hypertension Home Medications ?Medication ?Instructions ?Recorded ?Last Taken ?Type clonidine 0.2 mg/24 hr weekly 1 patch transdermal QWEEK 02/07/23 05/04/24 History transdermal patch losartan 100 1 tab PO DAILY 02/07/23 05/04/24 History mg-hydrochlorothiazide 25 mg tablet (Hyzaar) metoprolol tartrate 50 mg tablet 50 mg PO BID 02/07/23 05/05/24 History ezetimibe 10 mg tablet 10 mg PO DAILY 03/17/24 05/04/24 History albuterol sulfate 90 mcg/actuation 2 inh inhalation Q6H PRN ASTHMA 04/26/24 Unknown History aerosol inhaler (Proventil HFA) diphenhydramine HCl 50 mg capsule 50 mg PO QHS PRN sleep 04/28/24 05/04/24 History prune lax 1 dose PO DAILY PRN constipation 04/28/24 Unknown History ondansetron 4 mg disintegrating 4 mg PO Q8H PRN nausea and 05/07/24 Unknown Rx tablet vomiting 5 days #10 tabs oxycodone 5 mg capsule 5 mg PO Q6H PRN pain (scale score 05/07/24 Unknown Rx 7-10) 7 days #28 caps Allergy/AdvReac Type Severity Reaction Status Date / Time cephalexin (From Keflex) Allergy Rash Verified 05/06/24 14:59 theophylline Allergy Rash Verified 05/06/24 14:59 Family History Father Hypertension Surgical History History of cardiac catheterization Hx of surgical procedure History of cholecystectomy History of hernia repair Status post tracheostomy Status post insertion of percutaneous endoscopic gastrostomy (PEG) tube Social History household members: spouse Smoking Status: Never smoker alcohol intake: never substance use type: does not use Review of Systems (Anesthesia) ROS Narrative System reviewed and no additional complaints, except as documented.
[2024-05-12] MEDS: Lactated Ringers 1,000 ML 15 ML IV ×2 (10:13→13:50)
[2024-05-12] MEDS: Clindamycin 900 MG/50 ML BAG 75 MG IV (10:52)
--- NOTE | 2024-05-12 11:46 | PCM.POST.ANE ---
Anesthesia: Postop Eval I Current Vital Signs Temperature: 97.2 F Pulse Rate: 72 Blood Pressure: 133/54 Respiratory Rate: 18 Pulse Ox: 95 Oxygen Delivery Method: Room Air Assessment Airway patent: Yes Spontaneous unlabored respirations: Yes Mental status: Awake and Calm nausea: No Vomiting: No Anesthesia Complication: No Fluid Hydration Crystalloid volume administer (ml): 1,000 Total IV fluid infused: 1,000 Progress Note Post-operative progress note: DENIES PAIN Anesthesia document: Postop Eval 1 completed: Yes
[2024-05-12] MEDS: Lidocaine 1% /Epi 1:100 (20ml) 20 ML Vial (12:43)
[2024-05-12] MEDS: Bupiv/Epi 0.25% 30 ML Vial (12:44)
--- NOTE | 2024-05-12 14:38 | PCM.HP.STD ---
HPI - General General Date of Admission: 05/12/24 HPI Narrative RABIA ALCANTARA, is a 68 M who presents to the hospital for an elective flap for sacral wound. Tolerated surgery well and is being admitted for monitoring postoperatively with wound care. Currently has no complaints, pain is controlled. States that he takes medications for blood pressure and cholesterol all of which has been stable over the last several months. He has no active medical problems currently. ON LICENSE OF [facility] Medical History Loss of hearing Wears glasses Wears partial dentures Wears dentures Hypoglycemia Pressure ulcer Anemia Easy bruising Migraine headache Non-smoker On home oxygen therapy CPAP (continuous positive airway pressure) dependence History of edema Cardiology follow-up encounter History of irregular heartbeat History of echocardiogram Pulmonary embolism DVT (deep venous thrombosis) History of pressure ulcer History of acute respiratory failure Personal history of COVID-19 Pressure ulcer of sacral region, stage 4 Pneumonia due to COVID-19 virus Acute respiratory failure with hypoxia Narcolepsy Asthma Stroke/cerebrovascular accident Hypertension Home Medications ?Medication ?Instructions ?Recorded ?Last Taken ?Type clonidine 0.2 mg/24 hr weekly 1 patch transdermal QWEEK 02/07/23 05/12/24 History transdermal patch losartan 100 1 tab PO DAILY 02/07/23 05/04/24 History mg-hydrochlorothiazide 25 mg tablet (Hyzaar) metoprolol tartrate 50 mg tablet 50 mg PO BID 02/07/23 05/12/24 07:30 History ezetimibe 10 mg tablet 10 mg PO DAILY 03/17/24 05/04/24 History albuterol sulfate 90 mcg/actuation 2 inh inhalation Q6H PRN ASTHMA 04/26/24 Unknown History aerosol inhaler (Proventil HFA) diphenhydramine HCl 50 mg capsule 50 mg PO QHS PRN sleep 04/28/24 05/04/24 History prune lax 1 dose PO DAILY PRN constipation 04/28/24 Unknown History ondansetron 4 mg disintegrating 4 mg PO Q8H PRN nausea and 05/07/24 Unknown Rx tablet vomiting 5 days #10 tabs oxycodone 5 mg capsule 5 mg PO Q6H PRN pain (scale score 05/07/24 Unknown Rx 7-10) 7 days #28 caps Allergy/AdvReac Type Severity Reaction Status Date / Time cephalexin (From [email or web address]) Allergy Rash Verified 05/12/24 09:54 theophylline Allergy Rash Verified 05/12/24 09:54 Family History Father Hypertension Surgical History History of cardiac catheterization Hx of surgical procedure History of cholecystectomy History of hernia repair Status post tracheostomy Status post insertion of percutaneous endoscopic gastrostomy (PEG) tube Social History household members: spouse Smoking Status: Never smoker alcohol intake: never substance use type: does not use ROS Constitutional Constitutional: Denies chills, fatigue, fever(s) or malaise Eyes Eyes: Denies blurry vision ENT HEENT: Denies headache(s) or nasal discharge Cardiovascular Cardiovascular: Denies chest pain, dyspnea on exertion or syncope Respiratory/Chest Respiratory/Chest: Denies cough, shortness of breath at rest or shortness of breath with exertion Gastrointestinal Gastrointestinal: Denies constipation, diarrhea, nausea or vomiting Genitourinary Genitourinary: Denies dysuria Neurologic Neurologic: Denies focal weakness, numbness or tremor(s) Psychiatric Psychiatric: Denies anxiety or depression Vital Signs Vital Signs Vital Signs: 05/12/24 09:56 05/12/24 13:00 05/12/24 13:03 Temperature 97.5 F L 97.2 F L 97.2 F L Temperature Source Temporal Temporal Pulse Rate 68 72 72 Respiratory Rate 16 16 18 Respiratory Pattern Normal Blood Pressure 127/56 H 133/54 H 133/54 H Blood Pressure Mean 79 80 Blood Pressure Source Monitor Monitor Blood Pressure Position Semi-Fowlers Left Lateral Blood Pressure Location Right Arm Right Arm Baseline BP 127/56 Pulse Ox 96 93 95 Oxygen Delivery Method Room Air Room Air Room Air Oxygen Flow Rate (L/min) 05/12/24 13:05 05/12/24 13:10 05/12/24 13:15 Temperature Temperature Source Pulse Rate 72 67 70 Respiratory Rate 16 16 16 Respiratory Pattern Blood Pressure 118/51 L 123/58 H 123/54 H Blood Pressure Mean 73 79 77 Blood Pressure Source Monitor Monitor Monitor Blood Pressure Position Left Lateral Left Lateral Left Lateral Blood Pressure Location Right Arm Right Arm Right Arm Baseline BP 127/56 127/56 127/56 Pulse Ox 93 93 92 Oxygen Delivery Method Room Air Room Air Room Air Oxygen Flow Rate (L/min) 05/12/24 13:30 05/12/24 13:45 05/12/24 14:00 Temperature 97 F L Temperature Source Temporal Pulse Rate 76 73 76 Respiratory Rate 16 16 16 Respiratory Pattern Blood Pressure 126/53 H 122/51 H 123/48 H Blood Pressure Mean 77 74 73 Blood Pressure Source Monitor Monitor Monitor Blood Pressure Position Left Lateral Left Lateral Left Lateral Blood Pressure Location Right Arm Right Arm Right Arm Baseline BP 127/56 127/56 127/56 Pulse Ox 93 97 96 Oxygen Delivery Method Room Air Nasal Cannula Nasal Cannula Oxygen Flow Rate (L/min) 2 2 05/12/24 14:05 05/12/24 14:30 Temperature Temperature Source Pulse Rate 74 Respiratory Rate 16 Respiratory Pattern Normal Blood Pressure 118/45 L Blood Pressure Mean 69 Blood Pressure Source Monitor Blood Pressure Position Left Lateral Blood Pressure Location Right Arm Baseline BP 127/56 Pulse Ox 96 Oxygen Delivery Method Nasal Cannula Oxygen Flow Rate (L/min) 2 Weight Weight: 198 lb Body Mass Index (BMI) 29.2 Physical Exam Narrative General: Alert, Oriented x3, Cooperative, No apparent distress HEENT: Atraumatic, PERRLA, EOMI, Normocephalic Oral: Moist Mucosa Neck: Supple, No JVD Lungs: Diminished, Normal air movement, No rhonchi, No wheeze, No rales Cardiovascular: Regular rate, Regular Rhythm, Normal S1, Normal S2, No murmurs Abdomen: Soft, Non Tender, Non-Distended, No Hepato-splenomegaly Extremities: No edema, Capillary Refill Less than 3 Seconds Skin: Wound dressing intact Musculoskeletal: No Tenderness to Palpation of Joints or Extremities Neurological: No focal neurological deficits, Motor Exam 5/5 strength throughout, Sensory exam intact to light touch and pain Psych/Mental Status: Normal Affect, Appropriate Assessment & Plan Assessment/Plan (1) Pressure ulcer of sacral region, stage 4: PLAN: Plan 1. Sacral wound status post flap on 05/12/2024 ? Continue with pain management ? His sacral wound developed during his hospitalizations for COVID in 2020 where he was hospitalized and in a long-term about 6 months ? Will consult wound care ? Further wound orders from plastic surgery 2. Essential HTN/HLD ? Blood pressure stable ? Can restart losartan HCTZ tomorrow if his renal function is stable ? Continue with metoprolol ? Continue with Zetia ? Will monitor make adjustments as necessary DVT: Heparin 75 minutes was spent on direct patient care, including documentation as well as chart review and collaboration with colleagues Charges/Coding Visit Charges Inpatient E&M: 84205 Init Hosp L3
--- NOTE | 2024-05-12 14:54 | CASEMGMT ---
Received confirmation from Sk[place] at [facility] [place] has been approved through insurance for pt.
--- NOTE | 2024-05-12 15:55 | NURSING ---
Dr. Morales recently in to see pt d/t the consult per Dr. Cortes. Pt also transferred over to the [facility] special mattress and is laying on his Lt side.
[2024-05-12] MEDS: FLU VACCINE **HIGH DOSE** TV 24-25 180 MCG/0.5 ML SYRINGE IM (17:15)
[2024-05-12] MEDS: Ensure Plus High Protein 120 ML LIQUID PO ×2 (17:22→23:43)
--- NOTE | 2024-05-12 17:43 | POSTOPAN2_ITS ---
Anesthesia Postop Eval I Sum Postop Eval Completion status Anesthesia document: Postop Eval 1 completed: Yes Anesthesia Postop Eval I Summary Anesthesia Postop Eval I Summary: Anesthesia Postop Eval I: Assessment Summary Airway patent Yes 05/12/24 13:03 WELDING FOREMAN.SCHR Spontaneous unlabored Yes 05/12/24 13:03 WELDING FOREMAN.SCHR respirations Mental status Awake,Calm 05/12/24 13:03 WELDING FOREMAN.SCHR nausea No 05/12/24 13:03 WELDING FOREMAN.SCHR Vomiting No 05/12/24 13:03 [facility] Anesthesia Postop Eval I: Fluid Summary Crystalloid volume administer 1,000 05/12/24 13:03 WELDING FOREMAN.SCHR (ml) Colloids volume administered ( ml) Blood Product volume administered (ml) Total IV fluid infused 1,000 05/12/24 13:03 [facility] Anesthesia Postop Eval I: Summary Notes Anesthesia Complication No 05/12/24 13:03 [facility] Anesthesia Complication Comment: Post-operative progress note DENIES PAIN 05/12/24 13:03 [facility]ELDING FOREMAN[facility] Anesthesia: Postop Eval II Evaluation Mental status: Awake Pain Level: 0 nausea: No Vomiting: No
--- NOTE | 2024-05-12 17:43 | PCM.POSTANE2 ---
Anesthesia Postop Eval I Sum Postop Eval Completion status Anesthesia document: Postop Eval 1 completed: Yes Anesthesia Postop Eval I Summary Anesthesia Postop Eval I Summary: Anesthesia Postop Eval I: Assessment Summary Airway patent Yes 05/12/24 13:03 COMP FIELD CASE MANAGER.SCHR Spontaneous unlabored Yes 05/12/24 13:03 COMP FIELD CASE MANAGER.SCHR respirations Mental status Awake,Calm 05/12/24 13:03 COMP FIELD CASE MANAGER.SCHR nausea No 05/12/24 13:03 COMP FIELD CASE MANAGER.SCHR Vomiting No 05/12/24 13:03 COMP [facility]ELD [facility] Anesthesia Postop Eval I: Fluid Summary Crystalloid volume administer 1,000 05/12/24 13:03 COMP FIELD CASE MANAGER.SCHR (ml) Colloids volume administered ( ml) Blood Product volume administered (ml) Total IV fluid infused 1,000 05/12/24 13:03 COMP FIELD CASE MANAGER[facility] Anesthesia Postop Eval I: Summary Notes Anesthesia Complication No 05/12/24 13:03 COMP FIELD CASE MANAGER.[facility] Anesthesia Complication Comment: Post-operative progress note DENIES PAIN 05/12/24 13:03 COMP FIELD CASE MANAGER.[facility] Anesthesia: Postop Eval II Evaluation Mental status: Awake Pain Level: 0 nausea: No Vomiting: No
[2024-05-12] MEDS: Heparin Injection (Vial) 5,000 UNIT/ML VIAL 5000 UNIT SC (23:45)
[2024-05-12] MEDS: Metoprolol Tartrate 50 MG Tablet PO (23:45)
[2024-05-12] MEDS: Acetaminophen 500 MG Tablet 1000 MG PO (23:46)
[2024-05-13 06:01] VITALS: BP 131/49; PULSE 58; RESP 16; TEMP 36.8; O2SAT 97
[2024-05-13] MEDS: Heparin Injection (Vial) 5,000 UNIT/ML VIAL 5000 UNIT SC ×3 (06:11→22:17)
[2024-05-13] MEDS: Acetaminophen 500 MG Tablet 1000 MG PO ×3 (06:11→22:17)
--- NOTE | 2024-05-13 06:11 | PCM.PN.SRG ---
Subjective Subjective Doing well. Pain controlled. Lost air in air bed last night, but problem corrected. He's been offloading the wound the entire time on his side. Objective Data Objective Data Vital Signs: Vital Signs Temp Pulse Resp BP Pulse Ox O2 Del Method O2 Flow Rate 98.2 F 58 L 16 131/49 H 97 Room Air 2 05/13/24 06:01 05/13/24 06:01 05/13/24 06:01 05/13/24 06:01 05/13/24 06:01 05/13/24 06:01 05/12/24 14:30 Oxygen Flow Rate (L/min) 2 Oxygen Delivery Method Room Air Weight: 198 lb Body Mass Index (BMI) 29.2 Intake & Output: Intake and Output for Last 24 Hours 05/11/24 05/12/24 05/13/24 23:59 23:59 23:59 Intake Total 2931.25 / 2931.25 Output Total 2048 / 2048 150 / 150 Balance 883.25 / 883.25 -150 / -150 Lab / Micro Data Micro: Microbiology 05/12/24 11:34 Wound - Sacral Gram Stain - Final Physical Exam Narrative VAC holding suction. Drain holding suction and SS. Flap skin normal apprearing on the Rhombus underneath VAC Ioban. No signs of bleeding. Appropriately offloaded. Const alert and oriented x3 Eyes EOMs intact bilaterally Chest inspection of chest normal Resp normal respiratory effort Cardio regular rate and regular rhythm Skin Wound Narrative: SCDS are on and activated Assessment & Plan Assessment/Plan (1) Wound of sacral region: PLAN: Continue pressure offloading. No sitting or laying supine. No bending hips (must log roll to get out of bed). Discussed with patient. Bathroom PRN, but should limit time squating. Continue incisional VAC until Friday, 17 May 2024. [facility] to follow OK for DVT chemoprophylaxis (Continue Heparin) and continue SCDs. OK to ambulate/walk (should do so). Charges/Coding Procedures Integumentary [id number]: 14031 Global Visit
[2024-05-13 07:19] LABS: Absolute Lymphocyte Count 1.14 X10^3/uL (0.83-4.51); Absolute Neutrophil Count 6.2 X10^3/uL (2.0-7.7); Basophil# 0.02 X10^3/uL; Basophil% 0.2 % (0-1); Eosinophil# 0.12 X10^3/uL; Eosinophils% 1.4 % (0-5); Hematocrit 44.6 % (40-54); Hemoglobin 14.5 g/dL (13.0-16.5); Lymphocyte # 1.14 X10^3/ul (0.83-4.51); Lymphocyte % 13.7 % (19-41); Mean Corp Hgb Conc 32.5 g/dL (32-36); Mean Corpuscular Hgb 27.7 pg (27.0-32.0); Mean Corpuscular Volume 85.1 fL (80-94); Mean Platelet Vol. 9.3 fl (6.2-12.0); Monocyte% 9.6 % (0-10); NRBC Flagged by Analyzer 0 % (0-5); Neutrophil # 6.18 X10^3/uL (2.7-7.7); Neutrophil % 74.4 % (47-70); Platelet Count 214 K/mm3 (150-450); RBC Distribution Width CV 13.5 % (11.6-14.6); RBC Distribution Width SD 41.7 fl (35.1-43.9); Red Blood Count 5.24 M/mm3 (4.6-6.2); White Blood Count 8.3 K/mm3 (4.4-11.0)
[2024-05-13 07:51] LABS: Anion Gap 5 (5-15); BUN 14 mg/dL (7-18); BUN/Creat Ratio 20.1 RATIO (10-20); Calcium,Total 8.7 mg/dL (8.5-10.1); Chloride 106 mmol/L (98-107); EST Glomerular Filtration Rate 119 mL/min (>60); Est Glom Filt Rate - Afr Amer 144 mL/min (>60); Estimated Creatinine Clearance 95.21 ml/min; Glucose 108 mg/dL (74-106); Potassium 3.5 mmol/L (3.5-5.1); Sodium Level 139 mmol/L (136-145)
--- NOTE | 2024-05-13 08:31 | WOUNDNOTE ---
Pt resting in bed on left side. patient states he has been completely offloading from the sacral area. pt is on a low air loss mattress. wound VAC and MANISH drain in place. plan is for the wound VAC to remain in place until 05/17/24. will continue to monitor.
[2024-05-13 08:35] VITALS: BP 141/67; PULSE 67; RESP 17; TEMP 36.7; O2SAT 95
--- NOTE | 2024-05-13 08:40 | PCM.PN.HOSP ---
Reason for Visit Reason for Visit: Diagnoses Pressure ulcer of sacral region, stage 4 (05/12/24) Unspecified open wound of lower back and pelvis without penetration into retroperitoneum, initial encounter (05/12/24) Subjective Subjective Feeling fair today overall with no new or acute complaints Objective Data Objective Data Vital Signs: Vital Signs Temp Pulse Resp BP Pulse Ox O2 Del Method O2 Flow Rate 98.2 F 58 L 16 131/49 H 97 Room Air 2 05/13/24 06:01 05/13/24 06:01 05/13/24 06:01 05/13/24 06:01 05/13/24 06:01 05/13/24 06:01 05/12/24 14:30 Oxygen Flow Rate (L/min) 2 Oxygen Delivery Method Room Air Weight: 89.811 kg Body Mass Index (BMI) 29.2 Intake & Output: Intake and Output for Last 24 Hours 05/11/24 05/12/24 05/13/24 23:59 23:59 23:59 Intake Total 2931.25 / 2931.25 Output Total 8 / 2047 150 / 150 Balance 883.25 / 883.25 -150 / -150 Lab / Micro Data 05/13/24 06:15 05/13/24 06:15 Labs: Laboratory Results - last 24 hr 05/13/24 06:15: WBC 8.3, RBC 5.24, Hgb 14.5, Hct 44.6, MCV 85.1, MCH 27.7, MCHC 32.5, RDW Std Deviation 41.7, RDW Coeff of Williams 13.5, Plt Count 214, MPV 9.3, Immature Gran % (Auto) 0.700, Neut % (Auto) 74.4 H, Lymph % (Auto) 13.7 L, Bacon % (Auto) 9.6, Eos % (Auto) 1.4, Baso % (Auto) 0.2, Absolute Neuts (auto) 6.2, Absolute Lymphs (auto) 1.14, Nucleated RBC % 0, Sodium 139, Potassium 3.5, Chloride 106, Carbon Dioxide 28.0, Anion Gap 5, BUN 14, Creatinine 0.70, Estim Creat Clear Calc 95.21, Est GFR (MDRD) Af Amer 144, Est GFR (MDRD) Non-Af 119, BUN/Creatinine Ratio 20.1 H, Glucose 108 H, Calcium 8.7 Micro: Microbiology 05/12/24 11:34 Wound - Sacral Gram Stain - Final Physical Exam Narrative General: Alert, oriented, no apparent distress HEENT: Atraumatic, normocephalic Eyes: Anicteric, normal conjunctiva, extraocular movements grossly intact Neck: Supple Respiratory: Clear to auscultation bilaterally, normal respiratory effort Cardiovascular: Regular rate and rhythm GI: Soft, nontender, nondistended Extremities: No edema Musculoskeletal: Moving all extremities Neuro: No overt focal neurological deficits Skin: No rashes appreciated Psych: Cooperative Assessment & Plan Assessment/Plan (1) Pressure ulcer of sacral region, stage 4: PLAN: Plan #Sacral wound status post flap on 05/12/2024 -Sacral wound developed around the time of a previous hospitalization when he was hospitalized for COVID and in a [place] [facility] for about 6 months -Wound has been present for 2 years -Was biopsied last week on an outpatient basis to confirm that there was no cancer, no cancer or osteo was found so patient brought back for flap 05/12 -Plastic surgery managing -Continue pain control -Wound VAC in place and will be until Friday, possible DC Friday pending patient progress -Wound care consulted -Patient discussed with plastic surgery #HTN -Renal function has remained stable and blood pressure elevated -Resume home medications -Does also wear a clonidine patch q. weekly, will need to verify if patient still wearing this #Hx DVT -Based on history patient has previous DVT, not on chronic anticoagulation now -Was evaluated by Dr. Elmore with hematology for perioperative DVT risk -Caprini score low -Recommended normal DVT prophylaxis and SCDs DVT: Heparin sub q Time spent in the patient's overall evaluation,decision-making process, review of diagnostic data, adjustment of management, discussion with other providers, nursing nursing and ancillary staff involved in patient's care documentation, 36 minutes Charges/Coding Visit Charges Inpatient E&M: 20055 Subs Hosp L2
[2024-05-13 08:55] VITALS: PULSE 67
[2024-05-13] MEDS: Ezetimibe 10 MG Tablet PO (08:55)
[2024-05-13] MEDS: Metoprolol Tartrate 50 MG Tablet PO ×2 (08:55→22:17)
[2024-05-13] MEDS: Losartan Potassium 100 MG Tablet PO (11:01)
[2024-05-13] MEDS: hydroCHLOROthiazide 25 MG Tablet PO (11:01)
[2024-05-13] MEDS: Ensure Plus High Protein 120 ML LIQUID PO ×3 (14:16→22:52)
[2024-05-13 14:29] VITALS: BP 116/56; PULSE 66; RESP 14; TEMP 37.3; O2SAT 95
--- NOTE | 2024-05-13 16:30 | CASEMGMT ---
TYLER CASTILLO readmission note: Index admission: Admitted 05/05 w/sacral wound. Pt had developed a sacral wound around the time of a previous hospitalization for COVID and in a penitentiary for about 6 months, wound has been present for approx 2 years. [facility] and Dr Cortes, plastic surgery, is managing the wound. Pt w/history of HTN and DVT, not currently on chronic anticoagulation. See TYLER Gomez's assessment 05/06. Pt lives w/ in one-story home w/ramp entrance. Pt independent prior to admission. Pt discharged home w/new Rx's for ondansetron and oxycodone and w/instructions to avoid sitting for long periods of time and laying on back, to avoid pressure to sacral area. was working on getting low air loss mattress through [employer] and TYLER CASTILLO following for insurance approval. Pt discharged home w/wound vac. Pt and declined wanting/needing any HHC @ discharge. was performing wound care for pt prior to the wound vac and had patched the wound vac in the past when needed. Pt had appt scheduled @ [facility] on 05/10 and to have wound vac changed at that time. Plan @ dc was to return to [facility] on 05/12 for surgery for elective sacral wound flap. Current admission: Admitted 05/12 for surgery for elective sacral wound flap, as previously planned for. Pt has an incisional wound vac in place and it is to remain in place until 05/17, with possible discharge on Friday. TYLER CASTILLO to room. Pt resting in bed on his side. TYLER CASTILLO introduced self and role. Pt answered some questions and then called his and put her on speaker phone for TYLER CASTILLO to talk w/them together and to answer further questions. Pt has been taking his medications as prescribed since discharge from the hospital, has went to scheduled appts, and has been avoiding pressure to sacral area. Pt and plan for pt to discharge home. Pt has all meds needed @ home. Pt and do not know if he will need HHC @ discharge, stating it will depend on if wound vac is removed as planned on Friday and what wound care will be needed. CM to follow on Friday. willing to do wound care @ home, if needed. Pt has an appt @ [facility] on Friday. states would like this cancelled, as she states she will not be taking him, even if he is discharged home on Friday. She states her internet service is down currently and she is having difficulty finding contact #'s/appts. She also states pt has an appt w/chicken buyer, Dr Buitrago, from [facility] coming up, but she is not certain what day it is scheduled, as she is unable to get on MyChart. states she has been informed pt will need to continue to keep pressure off of sacral area for another 6 weeks. aware the pressure relieving/low air loss mattress has been approved by pt's insurance. She received a call from [facility] [employer] stating the plan is for delivery of this to pt's home on Fri, anywhere b/w 8 AM and 4 PM. She states, if it is delivered too late in the day, she is concerned it will be too late for pt to discharge home on Friday. TYLER CM to f/u with [facility] for further coordination of this, if possible. also states they have talked about how to have pt position himself in vehicle for transport [facility], to [facility] to keep as much pressure off of his sacral area as possible. states would like to get any new Rx's from [facility] Retail pharmacy @ [place] This is marked as preferred pharmacy in [place]. Pt wears O2 @ 2 L/M @ HS via CPAP and states he also uses it sometimes during the day, if needed. and pt state they have no other discharge needs at this time. Aware to ask for CM if anything further arises. TYLER CM to continue to follow for possible HHC, delivery of pressure relieving mattress, cx of [facility] appt on 05/17, and assist w/any further discharge needs. Tammy JOLLY RN, CM
[2024-05-13 20:47] VITALS: BP 132/58; PULSE 72; RESP 16; TEMP 36.8; O2SAT 94
[2024-05-13 22:17] VITALS: PULSE 72
[2024-05-13] MEDS: DiphenhydrAMINE 25 MG Capsule 50 MG PO (22:52)
[2024-05-14 02:47] VITALS: BP 136/65; PULSE 63; RESP 16; TEMP 36.7; O2SAT 97
[2024-05-14 05:46] LABS: Absolute Lymphocyte Count 1.27 X10^3/uL (0.83-4.51); Absolute Neutrophil Count 5.6 X10^3/uL (2.0-7.7); Basophil# 0.03 X10^3/uL; Basophil% 0.4 % (0-1); Eosinophil# 0.39 X10^3/uL; Eosinophils% 4.8 % (0-5); Hematocrit 46.2 % (40-54); Hemoglobin 15.1 g/dL (13.0-16.5); Lymphocyte # 1.27 X10^3/ul (0.83-4.51); Lymphocyte % 15.6 % (19-41); Mean Corp Hgb Conc 32.7 g/dL (32-36); Mean Corpuscular Hgb 27.7 pg (27.0-32.0); Mean Corpuscular Volume 84.8 fL (80-94); Mean Platelet Vol. 9.1 fl (6.2-12.0); Monocyte# 0.75 X10^3/uL; Monocyte% 9.2 % (0-10); NRBC Flagged by Analyzer 0 % (0-5); Neutrophil # 5.63 X10^3/uL (2.7-7.7); Neutrophil % 69.1 % (47-70); Platelet Count 219 K/mm3 (150-450); RBC Distribution Width CV 13.7 % (11.6-14.6); Red Blood Count 5.45 M/mm3 (4.6-6.2); White Blood Count 8.1 K/mm3 (4.4-11.0)
[2024-05-14 06:04] LABS: Anion Gap 4 (5-15); BUN 18 mg/dL (7-18); BUN/Creat Ratio 25.2 RATIO (10-20); Calcium,Total 8.9 mg/dL (8.5-10.1); Chloride 105 mmol/L (98-107); Creatinine, Serum 0.71 mg/dL (0.70-1.30); EST Glomerular Filtration Rate 116 mL/min (>60); Est Glom Filt Rate - Afr Amer 140 mL/min (>60); Estimated Creatinine Clearance 95.21 ml/min; Glucose 106 mg/dL (74-106); Potassium 3.7 mmol/L (3.5-5.1); Sodium Level 138 mmol/L (136-145)
[2024-05-14] MEDS: Heparin Injection (Vial) 5,000 UNIT/ML VIAL 5000 UNIT SC ×3 (06:16→21:41)
[2024-05-14] MEDS: Acetaminophen 500 MG Tablet 1000 MG PO ×3 (06:16→21:41)
--- NOTE | 2024-05-14 06:59 | PN.SURG_ITS ---
Subjective Subjective Doing well today post op day 2. Sat on bed carrasco for BM, no issues with that. He was able to log roll out of bed and walk yesterday with PT. He has been compliant with not putting pressure on the flap. Objective Data Objective Data Vital Signs: Vital Signs Temp Pulse Resp BP Pulse Ox O2 Del Method O2 Flow Rate 98.1 F 63 16 136/65 H 97 Room Air 2 05/14/24 02:47 05/14/24 02:47 05/14/24 02:47 05/14/24 02:47 05/14/24 02:47 05/14/24 02:47 05/12/24 14:30 Oxygen Flow Rate (L/min) 2 Oxygen Delivery Method Room Air Weight: 198 lb Body Mass Index (BMI) 29.2 Intake & Output: Intake and Output for Last 24 Hours 05/12/24 05/13/24 05/14/24 23:59 23:59 23:59 Intake Total 2931.25 / 2931.25 1000 / 1000 Output Total 2048 / 2048 1630 / 1630 1060 / 1060 Balance 883.25 / 883.25 -1630 / -1230 -60 / -60 Lab / Micro Data 05/14/24 05:32 05/14/24 05:32 Labs: Laboratory Results - last 24 hr 05/13/24 06:15: WBC 8.3, RBC 5.24, Hgb 14.5, Hct 44.6, MCV 85.1, MCH 27.7, MCHC 32.5, RDW Std Deviation 41.7, RDW Coeff of Williams 13.5, Plt Count 214, MPV 9.3, Immature Gran % (Auto) 0.700, Neut % (Auto) 74.4 H, Lymph % (Auto) 13.7 L, Story % (Auto) 9.6, Eos % (Auto) 1.4, Baso % (Auto) 0.2, Absolute Neuts (auto) 6.2, Absolute Lymphs (auto) 1.14, Nucleated RBC % 0, Sodium 139, Potassium 3.5, Chloride 106, Carbon Dioxide 28.0, Anion Gap 5, BUN 14, Creatinine 0.70, Estim Creat Clear Calc 95.21, Est GFR (MDRD) Af Amer 144, Est GFR (MDRD) Non-Af 119, B UN/Creatinine Ratio 20.1 H, Glucose 108 H, Calcium 8.7 05/14/24 05:32: WBC 8.1, RBC 5.45, Hgb 15.1, Hct 46.2, MCV 84.8, MCH 27.7, MCHC 32.7, RDW Std Deviation 42.0, RDW Coeff of Williams 13.7, Plt Count 219, MPV 9.1, Immature Gran % (Auto) 0.900, Neut % (Auto) 69.1, Lymph % (Auto) 15.6 L, Story % (Auto) 9.2, Eos % (Auto) 4.8, Baso % (Auto) 0.4, Absolute Neuts (auto) 5.6, Absolute Lymphs (auto) 1.27, Nucleated RBC % 0, Sodium 138, Potassium 3.7, Chloride 105, Carbon Dioxide 29.0, Anion Gap 4 L, BUN 18, Creatinine 0.71, Estim Creat Clear Calc 95.21, Est GFR (MDRD) Af Amer 140, Est GFR (MDRD) Non-Af 116, B UN/Creatinine Ratio 25.2 H, Glucose 106, Calcium 8.9 Micro: Microbiology 05/12/24 11:34 Wound - Sacral Gram Stain - Final 05/12/24 11:34 Wound - Sacral Wound Culture - Preliminary No growth-Final to follow Physical Exam Narrative VAC holding suction. Drain holding suction and SS. Flap skin normal apprearing on the Rhombus underneath VAC Ioban. No signs of bleeding. Appropriately offloaded. Const alert and oriented x3 Eyes EOMs intact bilaterally Chest inspection of chest normal Resp normal respiratory effort Cardio regular rate and regular rhythm Extremity Extremity Narrative: SCDs are on and activated No swelling on the lower extremities Skin Wound Narrative: SCDS are on and activated Assessment & Plan Assessment/Plan (1) Wound of sacral region: PLAN: Continue pressure offloading. No sitting or laying supine. No bending hips (must log roll to get out of bed). Discussed with patient. Bathroom PRN, but should limit time squatting. Continue incisional VAC until Friday, 16 May 2024. [facility] to follow [place] for DVT chemoprophylaxis (Continue Heparin) and continue SCDs. OK to ambulate/walk (should do so). Charges/Coding Procedures Integumentary 111xxx-113xx: 29064 Global Visit
--- NOTE | 2024-05-14 09:24 | CASEMGMT ---
Addendum entered by Wen Tang 05/20/24 09:55: entry on 05/14/24 @ 1218 re: [facility] documented [facility] error (wrong patient), please disregard. Unable to delete the addendum w/out deleting entire thread/prior notes. Addendum entered by Wen Tang 05/14/24 12:18: Per [facility]SE TECHNICIAN, someone from [facility] will contact pt/ to arrange for home health care appts. She states they do not have a phone number to provide to the patient and if they need to contact someone re: home health care they should contact their primary care provider through the [facility] for assistance. This info was added to pt's discharge plan and pt and made aware. Addendum entered by Wen Tang 05/14/24 12:10: Pt made aware of all of the below information as well. Questions answered. Pt voices appreciation. Made aware to ask for CM if any further discharge needs/concerns arise. Addendum entered by Wen Tang 05/14/24 10:15: TYLER CASTILLO spoke w/. She was made aware of appt re-scheduled @ [facility] from 05/17 to 05/[address] Cortes wants to see him earlier than a week from date of discharge, this will need re-scheduled. She was also made aware of Dr Francis, cardiology appt on Jun 08 and made aware these appts will print-out on pt's discharge instructions. voiced concern re: pt reported he was on his back to eat breakfast this morning and that she reminded him of the importance of not being on his back/having any pressure to sacral area. She states they have figured out a way he can eat on his side and she states she has been continuing to remind/reinforce the importance of this with pt. TYLER CASTILLO also spoke w/Suni SCOTT. She states she has spoken w/pt about this this morning and reinforced importance of keeping pressure off of the area as well. asked questions about a drain that she was told pt may have @ discharge. TYLER CASTILLO explained drain to her and made her aware nursing would educate her and pt on how to manage it/empty, etc prior to discharge. She voices appreciation. states, if pt needs O2 @ discharge, she can bring his portable O2 tank in. states she plans to bring in credit card for pt to purchase a couple boxes of Shravan from the pharmacy prior to discharge so he has it when he goes home. She denies need for assistance w/this. denies having any further discharge planning/needs/concerns at this time. Made aware to ask for CM if anything further arises. CM will continue to follow for any further discharge needs and to evaluate on Friday if pt needs HHC for any wound care/dsg changes. Addendum entered by Wen Tang 05/14/24 09:52: Appt @ [facility] changed from Thursday 05/17 to Thursday 05/24 @ 3 PM, as pt will not be discharging from [facility] until Friday, at the earliest. New appt entered into pt's discharge plan. Original Note: TYLER CASTILLO NOTE: Per Dr Cortes, plan is for discharge Friday, as long as pt's mattress has been delivered. TYLER CASTILLO placed call to Skyla @ [employer] [facility] and she was made aware of same. She states she will set up delivery of mattress for Friday AM, to ensure it will be delivered on time for pt to discharge home Friday. Tammy JOLLY RN, CM
[2024-05-14 09:41] VITALS: BP 129/72; PULSE 73; RESP 16; TEMP 36.6; O2SAT 94
[2024-05-14 09:55] VITALS: BP 129/72; PULSE 73
[2024-05-14] MEDS: hydroCHLOROthiazide 25 MG Tablet PO (09:55)
[2024-05-14] MEDS: Ensure Plus High Protein 120 ML LIQUID PO ×4 (09:55→21:41)
[2024-05-14] MEDS: Metoprolol Tartrate 50 MG Tablet PO ×2 (09:55→21:41)
[2024-05-14] MEDS: Ezetimibe 10 MG Tablet PO (09:56)
[2024-05-14] MEDS: Losartan Potassium 100 MG Tablet PO (09:56)
[2024-05-14 15:41] VITALS: BP 144/50; PULSE 80; RESP 16; TEMP 36.6; O2SAT 95
--- NOTE | 2024-05-14 16:50 | PN.HOSP_ITS ---
Reason for Visit Reason for Visit: Diagnoses Pressure ulcer of sacral region, stage 4 (05/12/24) Unspecified open wound of lower back and pelvis without penetration into retroperitoneum, initial encounter (05/12/24) Objective Data Objective Data Vital Signs: Vital Signs Temp Pulse Resp BP Pulse Ox O2 Del Method O2 Flow Rate 97.8 F 73 16 129/72 H 94 Room Air 2 05/14/24 09:41 05/14/24 09:55 05/14/24 09:41 05/14/24 09:55 05/14/24 09:41 05/14/24 09:42 05/12/24 14:30 Oxygen Flow Rate (L/min) 2 Oxygen Delivery Method Room Air Weight: 198 lb Body Mass Index (BMI) 29.2 Intake & Output: Intake and Output for Last 24 Hours 05/12/24 05/13/24 05/14/24 23:59 23:59 23:59 Intake Total 2931.25 / 2931.25 1000 / 1000 Output Total 2048 / 2048 1630 / 1630 1310 / 1310 Balance 883.25 / 883.25 -1630 / -1230 -310 / -310 Lab / Micro Data 05/14/24 05:32 05/14/24 05:32 Labs: Laboratory Results - last 24 hr 05/14/24 05:32: WBC 8.1, RBC 5.45, Hgb 15.1, Hct 46.2, MCV 84.8, MCH 27.7, MCHC 32.7, RDW Std Deviation 42.0, RDW Coeff of Williams 13.7, Plt Count 219, MPV 9.1, Immature Gran % (Auto) 0.900, Neut % (Auto) 69.1, Lymph % (Auto) 15.6 L, [place] % (Auto) 9.2, Eos % (Auto) 4.8, Baso % (Auto) 0.4, Absolute Neuts (auto) 5.6, Absolute Lymphs (auto) 1.27, Nucleated RBC % 0, Sodium 138, Potassium 3.7, Chloride 105, Carbon Dioxide 29.0, Anion Gap 4 L, BUN 18, Creatinine 0.71, Estim Creat Clear Calc 95.21, Est GFR (MDRD) Af Amer 140, Est GFR (MDRD) Non-Af 116, BUN/Creatinine Ratio 25.2 H, Glucose 106, Calcium 8.9 Micro: Microbiology 05/12/24 11:34 Wound - Sacral Gram Stain - Final 05/12/24 11:34 Wound - Sacral Wound Culture - Preliminary No growth-Final to follow 05/12/24 11:34 Wound - Sacral Anaerobic Culture - Preliminary Physical Exam Narrative Seen and examined. Had buttock decubitus ulcer debridement. Wound VAC present Physical exam General: Alert, Oriented x3, Cooperative HEENT: Atraumatic, PERRLA, EOMI, Normocephalic Oral: No Gingival or Mucosal Lesions/ Ulcerations Neck: Supple, No JVD, Negative Carotid Bruits Chest wall/Lungs: Air entry diminished in bilateral lung bases. No crepitation/rhonchi Cardiovascular: Regular rate, Regular Rhythm, Normal S1, Normal S2, No M/G/R Abdomen: Bowel Sounds Present, Soft, Non Tender, Non-Distended : Spontaneously voiding. No dysuria. No renal angle tenderness. No suprapubic tenderness. Extremities: No edema, Capillary Refill Less than 3 Seconds Skin: Dressing is dry. wound VAC functioning. No tenderness Musculoskeletal: No Tenderness to Palpation of Joints or Extremities Neurological: Cranial nerves II-XII grossly intact, DTR 2+/4. No acute focal neurological deficit. Psych/Mental Status: Normal Affect, Appropriate. Assessment & Plan Assessment/Plan (1) Pressure ulcer of sacral region, stage 4: PLAN: Plan #Sacral wound status post flap on 05/12/2024: 2 x 2 cm full-thickness to presacral fascia. -Sacral wound developed around the time of a previous hospitalization when he was hospitalized for COVID and in a intermediate for about 6 months about 2 years -Was biopsied last week on an outpatient basis to confirm that there was no cancer, no cancer or osteo was found so patient brought back for flap 05/12 -Plastic surgery managing. Pain control. Wound VAC in place. Wound care consulted 05/14 had a bowel movement. Voiding urine normally. #HTN -Renal function has remained stable and blood pressure elevated -Resume home medications -Does also wear a clonidine patch q. weekly #Hx DVT -Based on history patient has previous DVT, not on chronic anticoagulation now -Was evaluated by Dr. Elmore with hematology for perioperative DVT risk -Caprini score low -Recommended normal DVT prophylaxis and SCDs DVT: Heparin sub q Charges/Coding Visit Charges Inpatient E&M: 53360 Subs Hosp L2
[2024-05-14 21:35] VITALS: BP 150/83; PULSE 73; RESP 16; TEMP 36.7; O2SAT 96
[2024-05-14 21:41] VITALS: PULSE 73
[2024-05-15] VITALS (7 sets, daily range): BP systolic 113–135; BP diastolic 60–71; PULSE 66–85; RESP 16; TEMP 36.6–36.8; O2SAT 95–96
[2024-05-15] MEDS: Acetaminophen 500 MG Tablet 1000 MG PO ×3 (06:26→21:54)
[2024-05-15] MEDS: Heparin Injection (Vial) 5,000 UNIT/ML VIAL 5000 UNIT SC ×3 (06:26→21:53)
--- NOTE | 2024-05-15 06:37 | PCM.PN.SRG ---
Subjective Subjective Doing well this morning postop day 3. No complaints. Compliant with positioning and offloading. He walked the halls with physical therapy, with appropriate positioning restrictions. Had bowel movements but VAC is still in place holding suction. Objective Data Objective Data Vital Signs: Vital Signs Temp Pulse Resp BP Pulse Ox O2 Del Method O2 Flow Rate 97.8 F 66 16 135/63 H 95 CPAP 2 05/15/24 06:23 05/15/24 06:23 05/15/24 06:23 05/15/24 06:23 05/15/24 06:23 05/15/24 06:23 05/12/24 14:30 Oxygen Flow Rate (L/min) 2 Oxygen Delivery Method CPAP Weight: 198 lb Body Mass Index (BMI) 29.2 Intake & Output: Intake and Output for Last 24 Hours 05/13/24 05/14/24 05/15/24 23:59 23:59 23:59 Intake Total 1000 / 1000 400 / 400 Output Total 1630 / 1630 1830 / 2230 885 / 885 Balance -1630 / -1230 -830 / -1230 -485 / -485 Lab / Micro Data 05/14/24 05:32 05/14/24 05:32 Micro: Microbiology 05/12/24 11:34 Wound - Sacral Gram Stain - Final 05/12/24 11:34 Wound - Sacral Wound Culture - Preliminary No growth-Final to follow 05/12/24 11:34 Wound - Sacral Anaerobic Culture - Preliminary Physical Exam Narrative VAC holding suction. Drain holding suction and SS. Flap skin normal apprearing on the Rhombus underneath VAC Ioban. No signs of bleeding. Appropriately offloaded. Const alert and oriented x3 Eyes EOMs intact bilaterally Chest inspection of chest normal Resp normal respiratory effort Cardio regular rate and regular rhythm Extremity Extremity Narrative: SCDs are on and activated No swelling on the lower extremities Skin Wound Narrative: SCDS are on and activated Assessment & Plan Assessment/Plan (1) Wound of sacral region: PLAN: Continue pressure offloading. No sitting or laying supine. No bending hips (must log roll to get out of bed). Discussed with patient. Bathroom PRN, but should limit time squatting. Continue incisional VAC until Friday, 17 May 2024. [facility] to follow [place] for DVT chemoprophylaxis (Continue Heparin) and continue SCDs. OK to ambulate/walk (should do so). Charges/Coding Procedures Integumentary 111xxx-113xx: 01774 Global Visit
[2024-05-15] MEDS: Albuterol 2.5 MG/3 ML VIAL.NEB. INHALATION (07:27)
[2024-05-15] MEDS: Ensure Plus High Protein 120 ML LIQUID PO ×4 (10:05→21:53)
[2024-05-15] MEDS: Ezetimibe 10 MG Tablet PO (10:06)
[2024-05-15] MEDS: hydroCHLOROthiazide 25 MG Tablet PO (10:06)
[2024-05-15] MEDS: Losartan Potassium 100 MG Tablet PO (10:06)
[2024-05-15] MEDS: Metoprolol Tartrate 50 MG Tablet PO ×2 (10:06→21:53)
--- NOTE | 2024-05-15 13:37 | PCM.PN.HOSP ---
Reason for Visit Reason for Visit: Diagnoses Pressure ulcer of sacral region, stage 4 (05/12/24) Unspecified open wound of lower back and pelvis without penetration into retroperitoneum, initial encounter (05/12/24) Objective Data Objective Data Vital Signs: Vital Signs Temp Pulse Resp BP Pulse Ox O2 Del Method O2 Flow Rate 98.2 F 77 16 113/60 96 Room Air 2 05/15/24 10:16 05/15/24 10:16 05/15/24 10:16 05/15/24 10:16 05/15/24 10:16 05/15/24 10:21 05/12/24 14:30 Oxygen Flow Rate (L/min) 2 Oxygen Delivery Method Room Air Weight: 198 lb Body Mass Index (BMI) 29.2 Intake & Output: Intake and Output for Last 24 Hours 05/13/24 05/14/24 05/15/24 23:59 23:59 23:59 Intake Total 1000 / 1000 400 / 400 Output Total 1630 / 1630 1830 / 2230 1235 / 1235 Balance -1630 / -1230 -830 / -1230 -835 / -835 Lab / Micro Data 05/14/24 05:32 05/14/24 05:32 Micro: Microbiology 05/12/24 11:34 Wound - Sacral Gram Stain - Final 05/12/24 11:34 Wound - Sacral Wound Culture - Final No growth aerobically. 05/12/24 11:34 Wound - Sacral Anaerobic Culture - Final No anaerobic bacteria isolated. Physical Exam Narrative Seen and examined. Had buttock decubitus ulcer debridement. Wound VAC present. No fever. No discharge. Healing is appropriate. Was seen by plastic surgery in the morning. Physical exam General: Alert, Oriented x3, Cooperative HEENT: Atraumatic, PERRLA, EOMI, Normocephalic Oral: No Gingival or Mucosal Lesions/ Ulcerations Neck: Supple, No JVD, Negative Carotid Bruits Chest wall/Lungs: Air entry diminished in bilateral lung bases. No crepitation/rhonchi Cardiovascular: Regular rate, Regular Rhythm, Normal S1, Normal S2, No M/G/R Abdomen: Bowel Sounds Present, Soft, Non Tender, Non-Distended : Spontaneously voiding. No dysuria. No renal angle tenderness. No suprapubic tenderness. Extremities: No edema, Capillary Refill Less than 3 Seconds Skin: Dressing is dry. wound VAC functioning. No tenderness Musculoskeletal: No Tenderness to Palpation of Joints or Extremities Neurological: Cranial nerves II-XII grossly intact, DTR 2+/4. No acute focal neurological deficit. Psych/Mental Status: Normal Affect, Appropriate. Assessment & Plan Assessment/Plan (1) Pressure ulcer of sacral region, stage 4: PLAN: Plan #Sacral wound status post flap on 05/12/2024: 2 x 2 cm full-thickness to presacral fascia. -Sacral wound developed around the time of a previous hospitalization when he was hospitalized for COVID and in a shelter for about 6 months about 2 years -Was biopsied last week on an outpatient basis to confirm that there was no cancer, no cancer or osteo was found so patient brought back for flap 05/12 -Plastic surgery managing. Pain control. Wound VAC in place. Wound care consulted 05/14 had a bowel movement. Voiding urine normally. 05/15: No acute issues. No fever. Wound VAC functioning. Holding suction. Wound is dry. Bowel movement. Plan for discharge on Friday. #HTN -Renal function has remained stable and blood pressure elevated -Resume home medications -Does also wear a clonidine patch q. weekly #Hx DVT -Based on history patient has previous DVT, not on chronic anticoagulation now -Was evaluated by Dr. Elmore with hematology for perioperative DVT risk -Caprini score low -Recommended normal DVT prophylaxis and SCDs DVT: Heparin sub q Charges/Coding Visit Charges Inpatient E&M: 15607 Subs Hosp L2
[2024-05-16 03:25] VITALS: BP 126/84; PULSE 78; RESP 16; TEMP 36.4; O2SAT 96
[2024-05-16] MEDS: Acetaminophen 500 MG Tablet 1000 MG PO ×3 (05:55→22:01)
[2024-05-16] MEDS: Heparin Injection (Vial) 5,000 UNIT/ML VIAL 5000 UNIT SC ×3 (05:55→22:01)
--- NOTE | 2024-05-16 06:14 | PCM.PN.SRG ---
Subjective Subjective Doing well. Pain controlled. Compliant with positioning. He has been walking with assistance. Objective Data Objective Data Vital Signs: Vital Signs Temp Pulse Resp BP Pulse Ox O2 Del Method O2 Flow Rate 97.5 F L 78 16 126/84 H 96 Room Air 2 05/16/24 03:25 05/16/24 03:25 05/16/24 03:25 05/16/24 03:25 05/16/24 03:25 05/16/24 03:05/12/24 14:30 Oxygen Flow Rate (L/min) 2 Oxygen Delivery Method Room Air Weight: 198 lb Body Mass Index (BMI) 29.2 Intake & Output: Intake and Output for Last 24 Hours 05/14/24 05/15/24 05/16/24 23:59 23:59 23:59 Intake Total 1000 / 1000 400 / 400 600 / 600 Output Total 1830 / 2230 1755 / 1755 1210 / 1210 Balance -830 / -1230 -1355 / -1355 -610 / -610 Lab / Micro Data 05/14/24 05:32 05/14/24 05:32 Micro: Microbiology 05/12/24 11:34 Wound - Sacral Gram Stain - Final 05/12/24 11:34 Wound - Sacral Wound Culture - Final No growth aerobically. 05/12/24 11:34 Wound - Sacral Anaerobic Culture - Final No anaerobic bacteria isolated. Physical Exam Narrative VAC holding suction. Drain holding suction and SS. Flap skin normal appearing on the Rhombus underneath VAC Ioban. No signs of bleeding. Appropriately offloaded. Const alert and oriented x3 Eyes EOMs intact bilaterally Chest inspection of chest normal Resp normal respiratory effort Cardio regular rate and regular rhythm Extremity Extremity Narrative: SCDs are on and activated No swelling on the lower extremities Skin Wound Narrative: SCDS are on and activated Assessment & Plan Assessment/Plan (1) Wound of sacral region: PLAN: Continue pressure offloading. No sitting or laying supine. No bending hips (must log roll to get out of bed). Discussed with patient. Bathroom PRN, but should limit time squatting. Continue incisional VAC until Friday, 17 May 2024. [facility] to follow [place] for DVT chemoprophylaxis (Continue Heparin) and continue SCDs. OK to ambulate/walk (should do so). Charges/Coding Procedures Integumentary 111xxx-113xx: 47873 [facility] Visit
[2024-05-16 08:04] VITALS: BP 137/64; PULSE 66; RESP 18; TEMP 36.1; O2SAT 96
[2024-05-16] MEDS: Losartan Potassium 100 MG Tablet PO (08:18)
[2024-05-16 08:19] VITALS: PULSE 66
[2024-05-16] MEDS: Metoprolol Tartrate 50 MG Tablet PO ×2 (08:19→22:01)
[2024-05-16] MEDS: hydroCHLOROthiazide 25 MG Tablet PO (08:19)
[2024-05-16] MEDS: Ensure Plus High Protein 120 ML LIQUID PO ×4 (08:19→22:02)
[2024-05-16] MEDS: Ezetimibe 10 MG Tablet PO (08:19)
[2024-05-16 14:13] VITALS: BP 132/80; PULSE 71; RESP 18; TEMP 36.2; O2SAT 95
--- NOTE | 2024-05-16 14:36 | PCM.PN.HOSP ---
Reason for Visit Reason for Visit: Diagnoses Pressure ulcer of sacral region, stage 4 (05/12/24) Unspecified open wound of lower back and pelvis without penetration into retroperitoneum, initial encounter (05/12/24) Objective Data Objective Data Vital Signs: Vital Signs Temp Pulse Resp BP Pulse Ox O2 Del Method O2 Flow Rate 97.1 F L 71 18 132/80 H 95 Room Air 2 05/16/24 14:13 05/16/24 14:13 05/16/24 14:13 05/16/24 14:13 05/16/24 14:13 05/16/24 14:13 05/12/24 14:30 Oxygen Flow Rate (L/min) 2 Oxygen Delivery Method Room Air Weight: 198 lb Body Mass Index (BMI) 29.2 Intake & Output: Intake and Output for Last 24 Hours 05/14/24 05/15/24 05/16/24 23:59 23:59 23:59 Intake Total 1000 / 1000 400 / 400 800 / 800 Output Total 1830 / 2230 1755 / 1755 1210 / 1210 Balance -830 / -1230 -1355 / -1355 -410 / -410 Lab / Micro Data 05/14/24 05:32 05/14/24 05:32 Micro: Microbiology 05/12/24 11:34 Wound - Sacral Gram Stain - Final 05/12/24 11:34 Wound - Sacral Wound Culture - Final No growth aerobically. 05/12/24 11:34 Wound - Sacral Anaerobic Culture - Final No anaerobic bacteria isolated. Physical Exam Narrative Seen and examined. Had buttock decubitus ulcer debridement. Wound VAC present. No fever. No discharge. Healing is appropriate. Was seen by plastic surgery in the morning. Physical exam General: Alert, Oriented x3, Cooperative HEENT: Atraumatic, PERRLA, EOMI, Normocephalic Oral: No Gingival or Mucosal Lesions/ Ulcerations Neck: Supple, No JVD, Negative Carotid Bruits Chest wall/Lungs: Air entry diminished in bilateral lung bases. No crepitation/rhonchi Cardiovascular: Regular rate, Regular Rhythm, Normal S1, Normal S2, No M/G/R Abdomen: Bowel Sounds Present, Soft, Non Tender, Non-Distended : Spontaneously voiding. No dysuria. No renal angle tenderness. No suprapubic tenderness. Extremities: No edema, Capillary Refill Less than 3 Seconds Skin: Dressing is dry. wound VAC functioning. No tenderness. MANISH drain is empty. Musculoskeletal: No Tenderness to Palpation of Joints or Extremities. ROM full of lower extremities. Neurological: Cranial nerves II-XII grossly intact, DTR 2+/4. No acute focal neurological deficit. Psych/Mental Status: Normal Affect, Appropriate. Assessment & Plan Assessment/Plan (1) Pressure ulcer of sacral region, stage 4: PLAN: Plan #Sacral wound status post flap on 05/12/2024: 2 x 2 cm full-thickness to presacral fascia. -Sacral wound developed around the time of a previous hospitalization when he was hospitalized for COVID and in a longterm for about 6 months about 2 years -Was biopsied last week on an outpatient basis to confirm that there was no cancer, no cancer or osteo was found so patient brought back for flap 05/12 -Plastic surgery managing. Pain control. Wound VAC in place. Wound care consulted 05/14 had a bowel movement. Voiding urine normally. 05/15: No acute issues. No fever. Wound VAC functioning. Holding suction. Wound is dry. Bowel movement. Plan for discharge on Friday. 05/16: MANISH drain empty. Patient was instructed to maintain pressure offloading. No sitting or laying supine. No bending hips, must logroll to get out of the bed. Bathroom as needed but should limit time squatting. Continue incisional VAC until Friday, 17 May 2024. #HTN -Renal function has remained stable and blood pressure elevated -Resume home medications -Does also wear a clonidine patch q. weekly #Hx DVT -Based on history patient has previous DVT, not on chronic anticoagulation now -Was evaluated by Dr. Elmore with hematology for perioperative DVT risk -Caprini score low -Recommended normal DVT prophylaxis and SCDs DVT: Heparin sub q Charges/Coding Visit Charges Inpatient E&M: 37233 Subs Hosp L2
[2024-05-16 22:00] VITALS: BP 144/71; PULSE 75; RESP 16; TEMP 36.8; O2SAT 95
[2024-05-16 22:01] VITALS: BP 144/71; PULSE 75
[2024-05-17 04:00] VITALS: BP 137/68; PULSE 71; RESP 16; TEMP 36.6; O2SAT 98
[2024-05-17] MEDS: Heparin Injection (Vial) 5,000 UNIT/ML VIAL 5000 UNIT SC ×2 (05:06→13:44)
[2024-05-17] MEDS: Acetaminophen 500 MG Tablet 1000 MG PO ×2 (05:06→13:45)
--- NOTE | 2024-05-17 06:11 | PCM.PN.SRG ---
Subjective Subjective Doing well. Compliant with positioning. Objective Data Objective Data Vital Signs: Vital Signs Temp Pulse Resp BP Pulse Ox O2 Del Method O2 Flow Rate 97.8 F 71 16 137/68 H 98 Room Air 2 05/17/24 04:00 05/17/24 04:00 05/17/24 04:00 05/17/24 04:00 05/17/24 04:00 05/17/24 04:00 05/12/24 14:30 Oxygen Flow Rate (L/min) 2 Oxygen Delivery Method Room Air Weight: 198 lb Body Mass Index (BMI) 29.2 Intake & Output: Intake and Output for Last 24 Hours 05/15/24 05/16/24 05/17/24 23:59 23:59 23:59 Intake Total 400 / 400 980 / 980 Output Total 1755 / 1755 1710 / 1710 300 / 300 Balance -1355 / -1355 -730 / -730 -300 / -300 Lab / Micro Data 05/17/24 06:05 05/14/24 05:32 Micro: Microbiology 05/12/24 11:34 Wound - Sacral Gram Stain - Final 05/12/24 11:34 Wound - Sacral Wound Culture - Final No growth aerobically. 05/12/24 11:34 Wound - Sacral Anaerobic Culture - Final No anaerobic bacteria isolated. Physical Exam Narrative Perineum: VAC removed. Drain with serous output. Incision is intact without any dehiscence. No induration or redness. No signs of drainage. Flap is warm and well perfused/viable (no tissue necrosis at this time). Incisional VAC with adaptic re-applied. Assessment & Plan Assessment/Plan (1) Wound of sacral region: PLAN: Continue pressure offloading. No sitting or laying supine. No bending hips (must log roll to get out of bed). Discussed with patient. Bathroom PRN, but should limit time squatting. Pressure offloading bed will be at home today as well. Follow up in the wound care center on Friday,24 May 2024. Continue ambulate/walk (should do so, and discussed importance for DVT prevention with the patient). Drain care teaching before discharge (with nursing, ordered. Drain sheet on discharge instructions) OK for discharge home TODAY with home incisional wound vac (he has one already) Appreciate Hospitalist Team's assistance. Charges/Coding Procedures Integumentary [id number]: [id number] Global Visit
[2024-05-17 06:29] LABS: Absolute Lymphocyte Count 1.47 X10^3/uL (0.83-4.51); Absolute Neutrophil Count 5.8 X10^3/uL (2.0-7.7); Basophil# 0.07 X10^3/uL; Basophil% 0.8 % (0-1); Eosinophil# 0.41 X10^3/uL; Eosinophils% 4.8 % (0-5); Hematocrit 51.1 % (40-54); Hemoglobin 16.8 g/dL (13.0-16.5); Lymphocyte # 1.47 X10^3/ul (0.83-4.51); Lymphocyte % 17.2 % (19-41); Mean Corp Hgb Conc 32.9 g/dL (32-36); Mean Corpuscular Hgb 27.5 pg (27.0-32.0); Mean Corpuscular Volume 83.6 fL (80-94); Mean Platelet Vol. 9.4 fl (6.2-12.0); NRBC Flagged by Analyzer 0 % (0-5); Neutrophil # 5.82 X10^3/uL (2.7-7.7); Platelet Count 276 K/mm3 (150-450); RBC Distribution Width CV 13.9 % (11.6-14.6); Red Blood Count 6.11 M/mm3 (4.6-6.2); White Blood Count 8.6 K/mm3 (4.4-11.0)
[2024-05-17 06:45] LABS: Anion Gap 7 (5-15); BUN 25 mg/dL (7-18); BUN/Creat Ratio 33.3 RATIO (10-20); Calcium,Total 9.5 mg/dL (8.5-10.1); Chloride 103 mmol/L (98-107); Creatinine, Serum 0.75 mg/dL (0.70-1.30); EST Glomerular Filtration Rate 109 mL/min (>60); Est Glom Filt Rate - Afr Amer 132 mL/min (>60); Estimated Creatinine Clearance 95.21 ml/min; Glucose 119 mg/dL (74-106); Sodium Level 137 mmol/L (136-145)
[2024-05-17 07:56] VITALS: BP 120/52; PULSE 88; RESP 18; TEMP 36.6; O2SAT 96
--- NOTE | 2024-05-17 08:17 | WOUNDNOTE ---
wound photo: sacrum
--- NOTE | 2024-05-17 08:36 | WOUNDNOTE ---
Demonstrated how to empty the MANISH drain with patient. patient aware to record the drainage and take the form to follow up appt next week. patient also aware to take wound VAC dressing just in case the VAC is reapplied at that time.
[2024-05-17 10:00] VITALS: BP 109/53; PULSE 77; RESP 18; TEMP 36.3; O2SAT 95
[2024-05-17 10:12] VITALS: PULSE 77
[2024-05-17] MEDS: Metoprolol Tartrate 50 MG Tablet PO (10:12)
[2024-05-17] MEDS: Ezetimibe 10 MG Tablet PO (10:12)
[2024-05-17] MEDS: Ensure Plus High Protein 120 ML LIQUID PO (13:44)
--- NOTE | 2024-05-17 14:02 | CASEMGMT ---
TYLER CASTILLO received notification from [facility] that pt specialty mattress was delivered today.
--- NOTE | 2024-05-17 14:05 | DCINST_ITS ---
Discharge Instructions Diet Discharge Diet: 2000 mg Sodium Diet Activity Discharge Activity: Return to Normal Activity Weight Bearing Status: Weight bearing as tolerated Dressing / Incision Call your doctor if you observe: Fever of 101 or Higher, Coldness, Increased Pain, Numbness or Tingling, Change in Color, Inability to urinate, Inability to have a bowel movement, Shortness of breath, Dizziness, Fainting spells, Swelling in the ankles, Chest pain, Prolonged hiccupping, Increased palpitations (irregular heartbeat) and Calf discomfort Follow Up Care When: IN 2 WEEKS Test Results: Test results from this visit will be discussed in further detail at your follow- up appointment, if applicable. Discharge Plan Admission Admit Date/Time: 05/12/24 13:39 Primary Reason for Your Visit: Elective flap surgery for sacral wound. Attending Provider: Danis Jean Primary Care Provider: SEDA REVELES Consulting Providers: Clive Cortes; Polo Morales; Zunilda Butler Instructions Additional Instructions / Restrictions: Operations Performed: Sacral wound reconstruction Instructions for My Care at Home or Healthcare Facility The following instructions will help you know what to expect in the days following surgery. These are general instructions. Your surgeon and therapist may give you special instructions, which vary to some degree based on your specific procedure -- follow those as directed. Do not, however, hesitate to call if you have any questions or concerns. Splint Care/Dressing Care/Wound Care * Continue pressure offloading. No sitting or laying supine. No bending hips (must log roll to get out of bed). Bathroom as needed, but should limit time squatting. ? Activities * OK to ambulate/walk (should do so several times per day so as to not get a blood clot). * Avoid lifting, pushing, or pulling anything over 5 pounds. * Do not drive or operate heavy machinery within 24 hrs of surgery or while taking narcotic pain medication.? Pain Control/Medications * If you received an anesthetic block, your hand or arm may be numb for several hours. You will be discharged to home with medications, including an oral pain medication (analgesic). Rest and elevation are still one of the most important factors for pain control. Take your pain medication as needed, but do not wait for the pain to become out of control. * For severe pain, you may take prescription pain medication as directed, but please note that this may also contain Tylenol (e.g. Percocet). Do not take more than 4000mg of Tylenol (acetaminophen) from all sources daily.? * Pain medication may cause some lethargy, nausea, and or constipation. You should not drive/operate dangerous machinery while taking these medications. If these or other symptoms become significantly problematic, please your surgeon's office. * If prescribed oral antibiotics (Keflex, Clindamycin, or others), please take prescription for full duration as instructed. You should not have any pills remaining once completed (refills are written for your convenience should the course need to be extended, but generally they are not required). Diet (what I can eat): Resume normal diet Follow up * You will be seen 1 week in the wound care center with me on Friday, 24 May 2024 Follow-up appointment reminders:? (A list of any scheduled appointments is at the end of this document)? At your earliest convenience, please call [phone] to confirm/schedule a follow-up appointment with [ ] in clinic. When to call your surgeon: * If any signs of surgical site infection develop: redness, pus, pain, increased swelling or foul odor at the incision site, fever, cold and clammy skin, or confusion. * Consistent temperature above 101?F (38.3?C). * The affected area gets swollen or much more painful. * You have excessive bleeding from surgical site (soaking through). If you experience difficulty breathing and/or shortness of breath, seek immediate medical attention. If experiencing any of the above complications or if you have any questions, call [phone] Drain Care:? A drain has been placed during surgery in order to prevent the accumulation of fluids beneath your skin. The drain decreases the chance of infection and helps in the healing process. The nursing staff will instruct you and your family on the care and recording of drainage. ? * You may shower with them. Let soap and water run down over drains, rinse and pat dry with clean towel. Reinforce with gauze or ABD pad around drain site if leaking occurs around the drain; this is not unusual.?Hold drains in your hand or attach to lanyard (or string) around your neck with safety pin so they do not hang from your body (the tension on your skin may cause them to be pulled out) while your are showering. * The drains are attached to you with suture. If your drain(s) falls out accidentally, place a clean piece of gauze over the drain site with tape and discard your drain.? * If your drain bulb loses suction or your drain has migrated out from the drain site, do not attempt to push the drain back into your skin. Cover the area with dry gauze. You may be asked by your surgeon to place a piece of semi occlusive dressing (tegaderm) over the drain site to keep the site clean and drain in place until you are seen in the office.? * When you are wearing clothes, attach drains to your clothes in a place where there is minimal/no tension on the insertion site to your skin.? * You should empty the drainage and record the output at least 2 times per day, or when the drainage fills the bulb almost prison. Please keep daily amounts of drainage separate for each drain for a 24-hour period (for example drain #1 put out 40 mL for 24 hours).? * Strip your drains daily as shown to you by your nurse prior to discharge to avoid them from becoming clogged:? * Wash your hands. * Strip tubing three times a day (more often if there are a lot of blood clots). * Grasp tubing close to body with one hand and pull toward body. With other hand grasp tubing below the first hand. Using an alcohol swab, pinch tubing tightly, sliding fingers down tubing, away from body. * Repeat 2 or 3 times. Be sure drainage is flowing into bulbs. * Measure the drainage in the bulb by either using the calibrations on the bulb or by emptying the Bulb into small measuring container 3 times a day (more often if there is a lot of drainage or they feel heavy) Open small lid on top of bulb. Pour drainage into container. Squeeze bulb and hold while replacing small lid. Bulb should be collapsed to be effective. Pin bulb to clothing so the weight will not pull on the insertion site. * Measure drainage and record amount each time you empty the bulbs. Hold container at eye level to read the numbers on the side of the container. Read the numbers in the ml column. Record amount of drainage on chart. * Record your drain output daily and bring this record with you to your next follow up appointment. Drains will typically be removed in the clinic when output is less than 30 mL/24 hours per drain over 2 consecutive days. For drain removal appointment, please call your doctors office directly to schedule.? Location: Drain #1 Drain #2 Drain #3 Drain #4 AM Noon PM AM Noon PM AM Noon PM AM Noon PM Date: Total (daily) AM Noon PM AM Noon PM AM Noon PM AM Noon PM Date: Total (daily) AM Noon PM AM Noon PM AM Noon PM AM Noon PM Date: Total (daily) AM Noon PM AM Noon PM AM Noon PM AM Noon PM Date: Total (daily) AM Noon PM AM Noon PM AM Noon PM AM Noon PM Date: Total (daily) AM Noon PM AM Noon PM AM Noon PM AM Noon PM Date: Total (daily) AM Noon PM AM Noon PM AM Noon PM AM Noon PM Date: Total (daily) AM Noon PM AM Noon PM AM Noon PM AM Noon PM Date: Total (daily) AM Noon PM AM Noon PM AM Noon PM AM Noon PM Date: Total (daily) AM Noon PM AM Noon PM AM Noon PM AM Noon PM Date: Total (daily) AM Noon PM AM Noon PM AM Noon PM AM Noon PM Date: Total (daily) AM Noon PM AM Noon PM AM Noon PM AM Noon PM Date: Total (daily) AM Noon PM AM Noon PM AM Noon PM AM Noon PM Date: Total (daily) AM Noon PM AM Noon PM AM Noon PM AM Noon PM Date: Total (daily) AM Noon PM AM Noon PM AM Noon PM AM Noon PM Date: Total (daily) Discharge Orders/Prescriptions Prescriptions: New acetaminophen 500 mg Tablet 1,000 mg PO Q8 Qty: 0 0RF Rx Instructions: 1 g every 8 hourly for 1 week and then as needed for moderate to severe pain Continued prune lax 1 dose PO DAILY PRN (Reason: constipation) Patient Comments: gummy diphenhydramine HCl 50 mg capsule 50 mg PO QHS PRN (Reason: sleep) clonidine 0.2 mg/24 hr Patch Weekly 1 patch TRANSDERMAL QWEEK Patient Comments: patch new 05/04/24; right arm metoprolol tartrate 50 mg tablet 50 mg PO BID ezetimibe 10 mg tablet 10 mg PO DAILY albuterol sulfate [Proventil HFA] 90 mcg/actuation HFA aerosol inhaler 2 inh inhalation Q6H PRN (Reason: ASTHMA) oxycodone 5 mg capsule 5 mg PO Q6H PRN (Reason: pain (scale score 7-10)) 7 Days Qty: 28 0RF ondansetron 4 mg tablet,disintegrating 4 mg PO Q8H PRN (Reason: nausea and vomiting) 5 Days Qty: 10 0RF losartan-hydrochlorothiazide [Hyzaar] 100-25 mg Tablet 1 tab PO DAILY 3 Days Qty: 3 0RF Rx Instructions: Hold for SBP less than 130 mmHg Referrals / Follow Up: SEDA REVELES [Other] Litzy Francis [Other] - 06/08/24 10:30 am (As previously scheduled ) [facility] [Non-Staff] - 05/24/24 3:00 pm (Appt is w/Dr Cortes ) Disposition Disposition (needs filled in before D/C Order can be placed): Home Health Service
--- NOTE | 2024-05-17 14:11 | PCM.DC.SUM ---
Providers Date of Admission: 05/12/24 Date of Discharge: 05/17/24 Primary Care Physician: SEDA REVELES Consultations 05/12/24 13:51 Consult: Onc/Wound/lidar analyst Routine Comment: Consult: Plastic Surgery Routine Consulting Provider: Clive Cortes Reason for Consult: Post-operative management EMERGENT Consult: No MD Notified: No Date Notified: 05/12/24 Time Notified: 13:41 Diagnosis Discharge Diagnosis (1) Wound of sacral region: Status: Acute Code(s): S31.000A - Unspecified open wound of lower back and pelvis without penetration into retroperitoneum, initial encounter Plan 68-year-old gentleman was admitted in the hospital for elective reconstructive surgery for sacral wound. Prior to that patient had antibiotic as per ID recommendation and cleared for surgery. #Sacral wound status post flap on 05/12/2024: 2 x 2 cm full-thickness to presacral fascia. -Sacral wound developed around the time of a previous hospitalization when he was hospitalized for COVID and in a [facility] for about 6 months about 2 years -Was biopsied last week on an outpatient basis to confirm that there was no cancer, no cancer or osteo was found so patient brought back for flap 05/12 -Plastic surgery managing. Pain control. Wound VAC in place. Wound care consulted 05/14 had a bowel movement. Voiding urine normally. 05/15: No acute issues. No fever. Wound VAC functioning. Holding suction. Wound is dry. Bowel movement. Plan for discharge on Friday. 05/16: MANISH drain empty. Patient was instructed to maintain pressure offloading. No sitting or laying supine. No bending hips, must logroll to get out of the bed. Bathroom as needed but should limit time squatting. Continue incisional VAC until Friday, 17 May 2024. 05/17 final wound culture shows no growth aerobic or anaerobically from 05/12. AFB and fungal cultures pending. Discussed with the plastic surgeon. Does not need antibiotic. Cultures also negative. Had antibiotic for positive wound culture in April 2024 #HTN -Renal function has remained stable and blood pressure elevated -Resume home medications -Does also wear a clonidine patch q. weekly 05/17 follow-up PCP. #Hx DVT -Based on history patient has previous DVT, not on chronic anticoagulation now -Was evaluated by Dr. Elmore with hematology for perioperative DVT risk -Caprini score low -Recommended normal DVT prophylaxis and SCDs DVT: Heparin sub q Discharge medication reconciliation done. Discharge follow-up instructions completed. Discharge process discussed with the patient and all questions were answered to patient's satisfaction. Follow with PCP in 1 to 2 weeks Total time spent, exact 35 minutes on discharge meds reconciliation, examination, coordination of care with nurses and ancillary staff, review of imaging and blood test and discussion with the patient on follow-up instructions. Medications at Discharge Home Medications clonidine 0.2 mg/24 hr weekly transdermal patch 1 patch transdermal QWEEK 02/07/23 metoprolol tartrate 50 mg tablet 50 mg PO BID 02/07/23 ezetimibe 10 mg tablet 10 mg PO DAILY 03/17/24 albuterol sulfate 90 mcg/actuation aerosol inhaler (Proventil HFA) 2 inh inhalation Q6H PRN ASTHMA 04/26/24 diphenhydramine HCl 50 mg capsule 50 mg PO QHS PRN sleep 04/28/24 prune lax 1 dose PO DAILY PRN constipation 04/28/24 ondansetron 4 mg disintegrating tablet 4 mg PO Q8H PRN nausea and vomiting 5 days #10 tabs 05/07/24 oxycodone 5 mg capsule 5 mg PO Q6H PRN pain (scale score 7-10) 7 days #28 caps 05/07/24 acetaminophen 500 mg tablet 1,000 mg (2 x 500 mg) PO Q8 #0 tabs 05/17/24 losartan 100 mg-hydrochlorothiazide 25 mg tablet (Hyzaar) 1 tab PO DAILY 3 days #3 tabs 05/17/24 Physical Exam Narrative Seen and examined. Had buttock decubitus ulcer debridement. Wound VAC present. No fever. No discharge. Healing is appropriate. Was seen by plastic surgery in the morning. Physical exam General: Alert, Oriented x3, Cooperative HEENT: Atraumatic, PERRLA, EOMI, Normocephalic Oral: No Gingival or Mucosal Lesions/ Ulcerations Neck: Supple, No JVD, Negative Carotid Bruits Chest wall/Lungs: Air entry diminished in bilateral lung bases. No crepitation/rhonchi Cardiovascular: Regular rate, Regular Rhythm, Normal S1, Normal S2, No M/G/R Abdomen: Bowel Sounds Present, Soft, Non Tender, Non-Distended : Spontaneously voiding. No dysuria. No renal angle tenderness. No suprapubic tenderness. Extremities: No edema, Capillary Refill Less than 3 Seconds Skin: Dressing is dry. Wound photo reviewed. Stitches are intact. No inflammation or erythema or signs of infection. wound VAC functioning. No tenderness. MANISH drain is empty. Musculoskeletal: No Tenderness to Palpation of Joints or Extremities. ROM full of lower extremities. Neurological: Cranial nerves II-XII grossly intact, DTR 2+/4. No acute focal neurological deficit. Psych/Mental Status: Normal Affect, Appropriate. Weight / BMI Weight Weight: 198 lb Body Mass Index (BMI) 29.2 ABG / Lab / Microbiology Data 05/17/24 06:05 05/17/24 06:05 Laboratory: Laboratory Results - last 24 hr 05/17/24 06:05: WBC 8.6, RBC 6.11, Hgb 16.8 H, Hct 51.1, MCV 83.6, MCH 27.5, MCHC 32.9, RDW Std Deviation 42.0, RDW Coeff of Williams 13.9, Plt Count 276, MPV 9.4, Immature Gran % (Auto) 2.200 H, Neut % (Auto) 68.0, Lymph % (Auto) 17.2 L, [place] % (Auto) 7.0, Eos % (Auto) 4.8, Baso % (Auto) 0.8, Absolute Neuts (auto) 5.8, Absolute Lymphs (auto) 1.47, Nucleated RBC % 0, Sodium 137, Potassium 4.0, Chloride 103, Carbon Dioxide 27.0, Anion Gap 7, BUN 25 H, Creatinine 0.75, Estim Creat Clear Calc 95.21, Est GFR (MDRD) Af Amer 132, Est GFR (MDRD) Non-Af 109, BUN/Creatinine Ratio 33.3 H, Glucose 119 H, Calcium 9.5 Microbiology: Microbiology 05/12/24 11:34 Wound - Sacral Gram Stain - Final 05/12/24 11:34 Wound - Sacral Wound Culture - Final No growth aerobically. 05/12/24 11:34 Wound - Sacral Anaerobic Culture - Final No anaerobic bacteria isolated. D/C Instructions Discharge Diet: 2000 mg Sodium Diet Weight Bearing Status: Weight bearing as tolerated Call your doctor if you observe: Fever of 101 or Higher, Coldness, Increased Pain, Numbness or Tingling, Change in Color, Inability to urinate, Inability to have a bowel movement, Shortness of breath, Dizziness, Fainting spells, Swelling in the ankles, Chest pain, Prolonged hiccupping, Increased palpitations (irregular heartbeat) and Calf discomfort When: IN 2 WEEKS Meaningful Use Info Meaningful Use Meaningful Use Diagnoses (Choose all that apply): None applicable Ischemic Stroke Statin Dosing Therapy Reference: STATIN DOSE THERAPY REFERENCE: * Patients > 75 years receive moderate or high dose statin therapy. * Patients 75 years or YOUNGER should receive HIGH intensity statin dose unless contraindicated. You will be required to document reason for non-treatment if statin daily dose does not meet guidelines. HIGH DOSE STATIN THERAPY DAILY Atorvastatin > than or = to 40 mg Rosuvastatin > than or = to 20 mg Amlodipine + Atorvastatin > than or = to 2.5/40 mg Ezetimibe + Simvastatin 10/80 mg Simvastatin 80mg Discharge Plan Admission Admit Date/Time: 05/12/24 13:39 Primary Reason for Your Visit: Elective flap surgery for sacral wound. Attending Provider: Danis Jean Primary Care Provider: SEDA REVELES Consulting Providers: Clive Cortes; Polo Morales; Zunilda Butler Instructions Additional Instructions / Restrictions: Operations Performed: Sacral wound reconstruction Instructions for My Care at Home or Healthcare Facility The following instructions will help you know what to expect in the days following surgery. These are general instructions. Your surgeon and therapist may give you special instructions, which vary to some degree based on your specific procedure -- follow those as directed. Do not, however, hesitate to call if you have any questions or concerns. Splint Care/Dressing Care/Wound Care Continue pressure offloading. No sitting or laying supine. No bending hips (must log roll to get out of bed). Bathroom as needed, but should limit time squatting. ? Activities OK to ambulate/walk (should do so several times per day so as to not get a blood clot). Avoid lifting, pushing, or pulling anything over [address] or operate heavy machinery within 24 hrs of surgery or while taking narcotic pain medication.? Pain Control/Medications If you received an anesthetic block, your hand or arm may be numb for several hours. You will be discharged to home with medications, including an oral pain medication (analgesic). Rest and elevation are still one of the most important factors for pain control. Take your pain medication as needed, but do not wait for the pain to become out of control. For severe pain, you may take prescription pain medication as directed, but please note that this may also contain Tylenol (e.g. Percocet). Do not take more than 4000mg of Tylenol (acetaminophen) from all sources daily.? Pain medication may cause some lethargy, nausea, and or constipation. You should not drive/operate dangerous machinery while taking these medications. If these or other symptoms become significantly problematic, please your surgeon's office. If prescribed oral antibiotics (Keflex, Clindamycin, or others), please take prescription for full duration as instructed. You should not have any pills remaining once completed (refills are written for your convenience should the course need to be extended, but generally they are not required). Diet (what I can eat): Resume normal diet Follow up You will be seen 1 week in the wound care center with me on Friday, 24 May 2024 Follow-up appointment reminders:? (A list of any scheduled appointments is at the end of this document)? At your earliest convenience, please call [phone] to confirm/schedule a follow-up appointment with [ ] in clinic. When to call your surgeon: If any signs of surgical site infection develop: redness, pus, pain, increased swelling or foul odor at the incision site, fever, cold and clammy skin, or confusion. Consistent temperature above 101?F (38.3?C). The affected area gets swollen or much more painful. You have excessive bleeding from surgical site (soaking through). If you experience difficulty breathing and/or shortness of breath, seek immediate medical attention. If experiencing any of the above complications or if you have any questions, call [phone] Drain Care:? A drain has been placed during surgery in order to prevent the accumulation of fluids beneath your skin. The drain decreases the chance of infection and helps in the healing process. The nursing staff will instruct you and your family on the care and recording of drainage. ? You may shower with them. Let soap and water run down over drains, rinse and pat dry with clean towel. Reinforce with gauze or ABD pad around drain site if leaking occurs around the drain; this is not unusual.?Hold drains in your hand or attach to lanyard (or string) around your neck with safety pin so they do not hang from your body (the tension on your skin may cause them to be pulled out) while your are showering. The drains are attached to you with suture. If your drain(s) falls out accidentally, place a clean piece of gauze over the drain site with tape and discard your drain.? If your drain bulb loses suction or your drain has migrated out from the drain site, do not attempt to push the drain back into your skin. Cover the area with dry gauze. You may be asked by your surgeon to place a piece of semi occlusive dressing (tegaderm) over the drain site to keep the site clean and drain in place until you are seen in the office.? When you are wearing clothes, attach drains to your clothes in a place where there is minimal/no tension on the insertion site to your skin.? You should empty the drainage and record the output at least 2 times per day, or when the drainage fills the bulb almost jail. Please keep daily amounts of drainage separate for each drain for a 24-hour period (for example drain #1 put out 40 mL for 24 hours).? Strip your drains daily as shown to you by your nurse prior to discharge to avoid them from becoming clogged:? Wash your hands. Strip tubing three times a day (more often if there are a lot of blood clots). Grasp tubing close to body with one hand and pull toward body. With other hand grasp tubing below the first hand. Using an alcohol swab, pinch tubing tightly, sliding fingers down tubing, away from body. Repeat 2 or 3 times. Be sure drainage is flowing into bulbs. Measure the drainage in the bulb by either using the calibrations on the bulb or by emptying the Bulb into small measuring container 3 times a day (more often if there is a lot of drainage or they feel heavy) Open small lid on top of bulb. Pour drainage into container. Squeeze bulb and hold while replacing small lid. Bulb should be collapsed to be effective. Pin bulb to clothing so the weight will not pull on the insertion site. Measure drainage and record amount each time you empty the bulbs. Hold container at eye level to read the numbers on the side of the container. Read the numbers in the ml column. Record amount of drainage on chart. Record your drain output daily and bring this record with you to your next follow up appointment. Drains will typically be removed in the clinic when output is less than 30 mL/24 hours per drain over 2 consecutive days. For drain removal appointment, please call your doctors office directly to schedule.? Location: Drain #1 Drain #2 Drain #3 Drain #4 AM Noon PM AM Noon PM AM Noon PM AM Noon PM Date: Total (daily) AM Noon PM AM Noon PM AM Noon PM AM Noon PM Date: Total (daily) AM Noon PM AM Noon PM AM Noon PM AM Noon PM Date: Total (daily) AM Noon PM AM Noon PM AM Noon PM AM Noon PM Date: Total (daily) AM Noon PM AM Noon PM AM Noon PM AM Noon PM Date: Total (daily) AM Noon PM AM Noon PM AM Noon PM AM Noon PM Date: Total (daily) AM Noon PM AM Noon PM AM Noon PM AM Noon PM Date: Total (daily) AM Noon PM AM Noon PM AM Noon PM AM Noon PM Date: Total (daily) AM Noon PM AM Noon PM AM Noon PM AM Noon PM Date: Total (daily) AM Noon PM AM Noon PM AM Noon PM AM Noon PM Date: Total (daily) AM Noon PM AM Noon PM AM Noon PM AM Noon PM Date: Total (daily) AM Noon PM AM Noon PM AM Noon PM AM Noon PM Date: Total (daily) AM Noon PM AM Noon PM AM Noon PM AM Noon PM Date: Total (daily) AM Noon PM AM Noon PM AM Noon PM AM Noon PM Date: Total (daily) AM Noon PM AM Noon PM AM Noon PM AM Noon PM Date: Total (daily) Discharge Orders/Prescriptions Prescriptions: New acetaminophen 500 mg Tablet 1,000 mg PO Q8 Qty: 0 0RF Rx Instructions: 1 g every 8 hourly for 1 week and then as needed for moderate to severe pain Continued prune lax 1 dose PO DAILY PRN (Reason: constipation) Patient Comments: gummy diphenhydramine HCl 50 mg capsule 50 mg PO QHS PRN (Reason: sleep) clonidine 0.2 mg/24 hr Patch Weekly 1 patch TRANSDERMAL QWEEK Patient Comments: patch new 05/04/24; right arm metoprolol tartrate 50 mg tablet 50 mg PO BID ezetimibe 10 mg tablet 10 mg PO DAILY albuterol sulfate [Proventil HFA] 90 mcg/actuation HFA aerosol inhaler 2 inh inhalation Q6H PRN (Reason: ASTHMA) oxycodone 5 mg capsule 5 mg PO Q6H PRN (Reason: pain (scale score 7-10)) 7 Days Qty: 28 0RF ondansetron 4 mg tablet,disintegrating 4 mg PO Q8H PRN (Reason: nausea and vomiting) 5 Days Qty: 10 0RF losartan-hydrochlorothiazide [Hyzaar] 100-25 mg Tablet 1 tab PO DAILY 3 Days Qty: 3 0RF Rx Instructions: Hold for SBP less than 130 mmHg Referrals / Follow Up: SEDA REVELES [Other] Litzy Francis [Other] - 06/08/24 10:30 am (As previously scheduled ) [facility] [Non-Staff] - 05/24/24 3:00 pm (Appt is w/Dr Cortes ) Clive Cortes MD [Med Staff - Active Staff] - Within 1 Week Disposition Disposition (needs filled in before D/C Order can be placed): Home Health Service Charges/Coding Visit Charges Inpatient E&M: 80805 Disch Hosp >30min
[2024-05-17 14:44] VITALS: BP 134/68; PULSE 70; RESP 18; TEMP 36.4; O2SAT 94
--- NOTE | 2024-05-17 14:58 | CASEMGMT ---
TYLER CASTILLO spoke with wound nurse. Pt to have home vac and to be left on until [facility] appt with on Friday. TYLER CASTILLO into pt room, pt lying in bed in no distress. Pt states he is aware that the wound vac stays on until Friday. Will not plan on HH at this time d/t no vac changes but pt is aware this could change if he needs monitoring of the wound when the vac comes off. Pt has MANISH drain. Pt states his will be fine emptying this and caring for it and logging amounts. Pt denies any further homegoing needs at this time.
== END 2024-05-17 16:55 | disposition home or self-care (01) | DRG 578 ==
LOC: SDC 14:24 → MS3 14:24
PROVIDERS: Family Medicine; Internal Medicine; Admitting Provider Surgery Plastic and Reconstructive Surgery; Referring Provider Surgery Plastic and Reconstructive Surgery; Visit Provider Internal Medicine
PROC: 0JX70ZC Transfer Back Subcutaneous Tissue and Fascia with Skin, Subcutaneous Tissue and Fascia, Open Approach (ICD-10-PCS; principal; 2024-05-12 10:40)
DX: Z42.8 Encounter for other plastic and reconstructive surgery following medical procedure or healed injury (principal); C44.519 Basal cell carcinoma of skin of other part of trunk; I10 Essential (primary) hypertension; Z86.16 Personal history of COVID-19; Z86.718 Personal history of other venous thrombosis and embolism; Z79.899 Other long term (current) drug therapy; Z23 Encounter for immunization
CPT/HCPCS: 11043; 36415; 80048; 85025; 87070; 87075; 87102; 87176; 87205; 87206; 90662; 94640; 97161; J7120; J2405

== ENCOUNTER 2024-05-31 14:30 | Outpatient (RCR) | payer MEDICARE, BC, SELFPAY ==
[2024-05-02 00:43] VITALS: BP 127/67; PULSE 69; RESP 20; TEMP 36.4
[2024-05-10 15:29] VITALS: BP 127/57; PULSE 75; RESP 18; TEMP 36.3
--- NOTE | 2024-05-11 08:41 | WC ---
PHOTO 05/10/24 SA[facility]UM
--- NOTE | 2024-05-11 10:48 | PN.PCM_ITS ---
History of Present Illness Date of Service: 05/10/24 Chief Complaint: Stage IV sacral ulcer History of Wound: Clive Wilson is a 68-year-old male with a 2-year history of a sacral wound that started when patient was hospitalized, on ventilator in ICU with COVID. It has significantly improved in size since then but has been stagnant in progress for some time now per report from other providers at the wound care center. He he was for some time receiving wound care at the [place] [facility] center (patient lives in [place] which is near [place] and [place], about 45 minutes away), but switched to [place] last summer. At this time, wound cultures were obtained on 04/05/24 positive for MSSE, Corynebacterium striatum and Anaerobic cocci, which were treated with a course of Augmentin. The previous plastic surgeon or wound care center, Dr. Cagle, performed the following surgery last fall: Surgery 06/19/23 - Excision sacral pressure sore, Stage IV, with partial ostectomy for osteomyelitis. Cultures from the OR were negative for osteomyelitis (sacral bone culture was performed). Pathology of the bone specimen showed reactive changes with mild chronic inflammation and minimal acute inflammation that was not specific for osteomyelitis. A CT pelvis done around the same time did not show any sclerotic or destructive changes of the sacrum. He has since been following up in the wound care center with us for approximately bimonthly debridements and wound care. He has been doing Dakin's wet to dry dressings twice daily. He reports that for some time the wound was getting smaller, but that several months ago it became about the size it is now and it has not healed since then. His reports that he has been pressure offloading it intermittently, and most of the time not laying on it. Today in the office visit we talked about not laying on the wound extensively. We talked about positioning changes, and the negative impacts of pressure on the wound. He does not have in her bed. The casework supervisor was working on one for him but it was denied because of insurance reasons. Patient does not smoke. He does not use smokeless tobacco and he does not drink. Patient has a history of hypertension which is controlled on multiple blood pressure medicines. Patient does have a history of a pulmonary embolism, but this was related to his COVID hospitalization (several months hospitalization). He is not on any oxygen anymore. He finished his 6-month course of blood thinner and is no longer on any blood thinner. Subjective Subjective 19 April 2024: no recent chest pain or racing heart. Denies fevers or chills today. His is also concerned about a lesion on his lower back that is pigmented and changing. He and his would like to get this wound healed and are sick of wound care. Current encounter 10 May 2024: Doing quite well overall postop day 5 from his excision. I went over the pathology with him and his today. There was no cancer from the sacral wound, and no signs of osteomyelitis on the pathology read. There was also no signs of osteomyelitis or other growth in the soft tissue or bone cultures. I did review the mid back mass that was excised with 5 mm margins. This mass was a basal cell carcinoma. There will be no further treatment needed. They were appreciative that we excise this mass as well. He has been compliant with his wound VAC at home. The VAC was removed in clinic today without issue and he is prepared for hospital mission on Friday after flap reconstruction of his sacral wound. Objective Data Objective Data Vital Signs: Vital Signs Temp Pulse Resp BP O2 Del Method 97.3 F L 75 18 127/57 H Room Air 05/10/24 15:29 05/10/24 15:29 05/10/24 15:29 05/10/24 15:29 05/10/24 15:29 Oxygen Delivery Method Room Air Charges/Coding Multi Select Codes Integumentary Integumentary CPT Codes: 60736 Roxi musc/fascia 20 sq cm/< Physical Exam Narrative Full-thickness sacral wound down to presacral fascia Wound is 2 x 2 x 4 cm Healthy granulation tissue at the base Mid back wound incision healing well with no signs of dehiscence or infection. Debridement Note Debridement Note Post-Debridement Measurements and Additional Note: Post-Debridement Measurements/Treatment - Nurse 1 - General Ulcer Assessment Start: 05/10/24 15:26 Freq: Status: Active Protocol: DONNIE Activity Type Activity Date Activity User E-sign Co-sign Detail Recorded Client Recorded Date Recorded By Document 05/10/24 15:29 SOPHIA [id number] 05/10/24 15:40 KW 05/10/24 15:29 - Today's Visit Information Type of service Follow-up Visit (Physician/[facility]ORNEY ) Arrival Mode Ambulatory Accompanied by Patient Identification Verified (Name & Yes ) Vital Signs Temperature (97.8 F-99.1 F) 97.3 F L Temperature Source Temporal Pulse Rate (60-100) 75 Pulse Location Monitor Respiratory Rate (12-18) 18 Respiratory rate source Observation Oxygen Delivery Method Room Air Blood Pressure (90/60-120/80) 127/57 H Blood Pressure Mean (mm Hg) 80 Source Monitor Position Semi-Fowlers Blood Pressure Location Left Arm History Since Last Visit- (Skip if this is Patient's initial visit) Have you changed medications since your No last visit? Any new allergies or adverse reactions No Had a fall/change in ADL's that may No increase risk of falls Signs or symptoms of abuse and/or No neglect since last visit Have you been in the hospital since your No last visit? Has dressing in place as prescribed Yes Has compression in place as prescribed N/A Has offloadiing in place as prescribed N/A Experienced any changes in pain level or No management Left Footwear Regular Shoe Right Footwear Regular Shoe Pain Scale: 0-10 Numeric Is Patient Pain Free? Yes WC - Nurse 1 - General Ulcer Measurement Start: 05/10/24 15:26 Freq: Status: Active Protocol: Activity Type Activity Date Activity User E-sign Co-sign Detail Recorded Client Recorded Date Recorded By Document 05/10/24 15:29 [id number] 05/10/24 15:40 KW 05/10/24 15:29 Wound Center Nurse 1 1-Sacrum -Current Size (cm) - Length 1.6 -Current Size (cm) - Width 1.7 -Current Size (cm) - Depth 3.1 -Total Square Cm 2.72 -Date of Last Picture (Recall this 05/10/24 field) -Exudate Amt Medium -Exudate Type Serosanguineous -Wound Margin Distinct, Outline Attached -Granulation Amt Large (67-100%) -Granulation Quality [place] -Necrosis Amt Small (1-33%) -Necrotic Tissue Type Adherent Slough -Structure Exposed Bone -Texture (Mickie-wound Skin Appearance) Assessed -Moisture (Mickie-wound Skin Appearance) Assessed, Maceration -Color (Mickie-wound Skin Appearance) Assessed -Temperature (Mickie-wound Skin No Abnormality Appearance) (Pt Warm) -Tenderness on Palpation (Mickie-wound No Skin Appearance) -Ulcer Cleansing Soap and Water -Foul Odor after Cleansing No -Anesthetic Used 5% Lidocaine Gel WC - Nurse 2 - General Ulcer CM Notes Start: 05/10/24 15:26 Freq: Status: Active Protocol: Activity Type Activity Date Activity User E-sign Co-sign Detail Recorded Client Recorded Date Recorded By Document 05/10/24 16:16 [email or web address] [id number] 05/10/24 16:17 EMMY 05/10/24 16:16 Wound Center Nurse 2 -Correct Patient Yes -Correct Side, Site, Position Yes -Correct Procedure Yes -Procedure Performed Yes -Type of Procedure Debridement -Clinical Debridement Muscle / Fascia -Tissue Removed Muscle,Fascia -Post Debridement (cm) - Length 2 -Post Debridement (cm) - Width 2 -Post Debridement (cm) - Depth 4 -Total Square (Post) (cm) 4 -Area of Debridement (cm) - Length 2 -Area of Debridement (cm) - Width 2 -Total Square (Area) (cm) 4 -Tunneling No -Undermining/Tunneling No -Circular Undermining No -Wound/Ulcer Outcome Not Healed -Ulcer Cleansing Rinsed/ Irrigated with Saline -Foul Odor after Cleansing No -Bioengineered Tissue No -Bleeding Controlled with Pressure -Treatment Response Procedure Tolerated Well -Offloading No -Debridement - Muscle / Fascia, 1st Yes 20sq cm Pain Scale: 0-10 Numeric Is Patient Pain Free? Yes - Nurse 3 - General Ulcer D/C NN Start: 05/10/24 15:26 Freq: Status: Active Protocol: Activity Type Activity Date Activity User E-sign Co-sign Detail Recorded Client Recorded Date Recorded By Document 05/10/24 17:01 [email or web address] [id number] 05/10/24 17:02 MARGUERITE 05/10/24 17:01 Wound Care Center Nurse 3 1-Sacrum -Ulcer Cleansing Soap and Water -Foul Odor after Cleansing No -Negative Pressure Wound Therapy Continue -Setting (mmHg) 125 -Negative Pressure is Continuous -NPWT Application Charge NPWT & Debridement (nc ) Mickie-Wound Care Barrier Treatment Response Procedure Tolerated Well Pain Scale: 0-10 Numeric Is Patient Pain Free? Yes WC - Visit Discharge Discharge Condition Stable Ambulatory Status Ambulatory Transportation Private Auto Assessment/Plan Assessment/Plan (1) Pressure ulcer of sacral region, stage 4: CODE(S): L89.154 - Pressure ulcer of sacral region, stage 4 PLAN: Continue with plan for flap reconstruction on 12 May 2024. Given the size of the wound I think a Limberg flap (rhombus) is appropriate as it is about the size of a pilonidal cyst excision. I talked the patient extensively about the risks of surgery, including bleeding, infection, damage to surrounding structures, surgical site dehiscence and wound formation, need for wound care, need for repeat operations, failure to obtain the desired result, DVT/PE, and the risks of anesthesia including . All of their questions were answered, and they agreed to proceed with surgery. They understand that the wound could become bigger with flap reconstruction if the wounds are not healing. They understand the plan for admission postoperatively with pressure offloading protocols, as well as incisional wound VAC. All questions answered.
--- NOTE | 2024-05-24 10:05 | PCM.WC.PN ---
History of Present Illness Date of Service: 05/24/24 Chief Complaint: Stage IV sacral ulcer History of Wound: Clive Wilson is a 68-year-old male with a 2-year history of a sacral wound that started when patient was hospitalized, on ventilator in ICU with COVID. It has significantly improved in size since then but has been stagnant in progress for some time now per report from other providers at the wound care center. He he was for some time receiving wound care at the [facility] (patient lives in [place] which is near [place] and [place], about 45 minutes away), but switched to [place] last summer. At this time, wound cultures were obtained on 04/05/24 positive for MSSE, Corynebacterium striatum and Anaerobic cocci, which were treated with a course of Augmentin. The previous plastic surgeon or wound care center, Dr. Cagle, performed the following surgery last fall: Surgery 06/19/23 - Excision sacral pressure sore, Stage IV, with partial ostectomy for osteomyelitis. Cultures from the OR were negative for osteomyelitis (sacral bone culture was performed). Pathology of the bone specimen showed reactive changes with mild chronic inflammation and minimal acute inflammation that was not specific for osteomyelitis. A CT pelvis done around the same time did not show any sclerotic or destructive changes of the sacrum. He has since been following up in the wound care center with us for approximately bimonthly debridements and wound care. He has been doing Dakin's wet to dry dressings twice daily. He reports that for some time the wound was getting smaller, but that several months ago it became about the size it is now and it has not healed since then. His reports that he has been pressure offloading it intermittently, and most of the time not laying on it. Today in the office visit we talked about not laying on the wound extensively. We talked about positioning changes, and the negative impacts of pressure on the wound. He does not have in her bed. The senior case manager was working on one for him but it was denied because of insurance reasons. Patient does not smoke. He does not use smokeless tobacco and he does not drink. Patient has a history of hypertension which is controlled on multiple blood pressure medicines. Patient does have a history of a pulmonary embolism, but this was related to his COVID hospitalization (several months hospitalization). He is not on any oxygen anymore. He finished his 6-month course of blood thinner and is no longer on any blood thinner. surgeries with Dr. Cortes Surgery/Procedure Date: 05 May 2024 Incision/Procedure Start Time: 12:01 pm Incision Close/Procedure End Time: 12: 48 pm PATIENT: Clive Betancourt SURGEON: Clive Cortes MD PRE-OPERATIVE DIAGNOSIS: Sacral Wound POST-OPERATIVE DIAGNOSIS: Same PROCEDURE PERFORMED: 1) Excision of sacral wound, including necrotic skin, subcutaneous tissue, fascia, muscle, and bone, 2 x 2 cm (CPT: 27151) -- Wound was sent for pathologic analysis 2) Bone biopsy of sacral bone for pathology analysis and for cultures (CPT: 89901 - Deep Bone Biopsy) 3) Irrigating wound VAC placement (Veraflow), not disposable, < 50 cm ^ 2 (CPT: 62411) 4) Biopsy pigmented mid central back lesion, 1 x 1.3 cm with 5 mm margins around (CPT: 26526 - 59 modifier) OPERATIVE FINDINGS: The bone of the sacrum that was remained at the base of the wound following excision felt solid and looked and appeared healthy. Surgery/Procedure Date: 12 May 2024 Incision/Procedure Start Time: 11:17 am Incision Close/Procedure End Time: 12:31 am (71 min) PATIENT: Clive Betancourt SURGEON: Clive Cortes MD PRE-OPERATIVE DIAGNOSIS: Sacral wound, 2 x 2 cm down full-thickness to presacral fascia/bone POST-OPERATIVE DIAGNOSIS: Same PROCEDURE PERFORMED: 1) Surgical preparation of sacral wound with sharp excision, down to necrotic fat fascia and muscle, 3 x 3 cm (CPT 55401) 2) Awith a Limberg (Rhombic) random-pattern flap, 7 x 9 cm (CPT 85212, 75520) OPERATIVE FINDINGS: Healthy wound down to viable, solid sacral bone. Overall ready for reconstruction. Subjective Subjective CURRENT ENCOUNTER, 24 May 2024: Doing well post-op 12 days. Compliant with the positioning restrictions and incisional wound VAC. No fevers chills. Low drain output. Objective Data Objective Data Vital Signs: Vital Signs Temp Pulse Resp BP O2 Del Method 97.3 F L 75 18 127/57 H Room Air 05/10/24 15:29 05/10/24 15:29 05/10/24 15:29 05/10/24 15:29 05/10/24 15:29 Oxygen Delivery Method Room Air Charges/Coding Procedures Integumentary 111xxx-113xx: 80642 Global Visit Physical Exam Narrative Perineum: VAC removed. Drain removed. Drain with serous output. Incision is intact without any dehiscence. No induration or redness. No signs of drainage. Flap is warm and well perfused/viable (no tissue necrosis at this time). Const alert and oriented x3 Debridement Note Debridement Note Post-Debridement Measurements and Additional Note: Post-Debridement Measurements/Treatment - Nurse 1 - General Ulcer Assessment Start: 05/10/24 15:26 Freq: Status: Active Protocol: DONNIE Activity Type Activity Date Activity User E-sign Co-sign Detail Recorded Client Recorded Date Recorded By Document 05/10/24 15:29 KW [id number] 05/10/24 15:40 KW 05/10/24 15:29 WC - Today's Visit Information Type of service Follow-up Visit (Physician/IN HOUSE CRA ) Arrival Mode Ambulatory Accompanied by Patient Identification Verified (Name & Yes ) Vital Signs Temperature (97.8 F-99.1 F) 97.3 F L Temperature Source Temporal Pulse Rate (60-100) 75 Pulse Location Monitor Respiratory Rate (12-18) 18 Respiratory rate source Observation Oxygen Delivery Method Room Air Blood Pressure (90/60-120/80) 127/57 H Blood Pressure Mean (mm Hg) 80 Source Monitor Position Semi-Fowlers Blood Pressure Location Left Arm History Since Last Visit- (Skip if this is Patient's initial visit) Have you changed medications since your No last visit? Any new allergies or adverse reactions No Had a fall/change in ADL's that may No increase risk of falls Signs or symptoms of abuse and/or No neglect since last visit Have you been in the hospital since your No last visit? Has dressing in place as prescribed Yes Has compression in place as prescribed N/A Has offloadiing in place as prescribed N/A Experienced any changes in pain level or No management Left Footwear Regular Shoe Right Footwear Regular Shoe Pain Scale: 0-10 Numeric Is Patient Pain Free? Yes - Nurse 1 - General Ulcer Measurement Start: 05/10/24 15:26 Freq: Status: Active Protocol: Activity Type Activity Date Activity User E-sign Co-sign Detail Recorded Client Recorded Date Recorded By Document 05/10/24 15:29 KW [id number] 05/10/24 15:40 05/10/24 15:29 Wound Center Nurse 1 1-Sacrum -Current Size (cm) - Length 1.6 -Current Size (cm) - Width 1.7 -Current Size (cm) - Depth 3.1 -Total Square Cm 2.72 -Date of Last Picture (Recall this 05/10/24 field) -Exudate Amt Medium -Exudate Type Serosanguineous -Wound Margin Distinct, Outline Attached -Granulation Amt Large (67-100%) -Granulation Quality [place] -Necrosis Amt Small (1-33%) -Necrotic Tissue Type Adherent Slough -Structure Exposed Bone -Texture (Mickie-wound Skin Appearance) Assessed -Moisture (Mickie-wound Skin Appearance) Assessed, Maceration -Color (Mickie-wound Skin Appearance) Assessed -Temperature (Mickie-wound Skin No Abnormality Appearance) (Pt Warm) -Tenderness on Palpation (Mickie-wound No Skin Appearance) -Ulcer Cleansing Soap and Water -Foul Odor after Cleansing No -Anesthetic Used 5% Lidocaine Gel WC - Nurse 2 - General Ulcer CM Notes Start: 05/10/24 15:26 Freq: Status: Active Protocol: Activity Type Activity Date Activity User E-sign Co-sign Detail Recorded Client Recorded Date Recorded By Document 05/10/24 16:16 JF [id number] 05/10/24 16:17 EMMY 05/10/24 16:16 Wound Center Nurse 2 -Correct Patient Yes -Correct Side, Site, Position Yes -Correct Procedure Yes -Procedure Performed Yes -Type of Procedure Debridement -Clinical Debridement Muscle / Fascia -Tissue Removed Muscle,Fascia -Post Debridement (cm) - Length 2 -Post Debridement (cm) - Width 2 -Post Debridement (cm) - Depth 4 -Total Square (Post) (cm) 4 -Area of Debridement (cm) - Length 2 -Area of Debridement (cm) - Width 2 -Total Square (Area) (cm) 4 -Tunneling No -Undermining/Tunneling No -Circular Undermining No -Wound/Ulcer Outcome Not Healed -Ulcer Cleansing Rinsed/ Irrigated with Saline -Foul Odor after Cleansing No -Bioengineered Tissue No -Bleeding Controlled with Pressure -Treatment Response Procedure Tolerated Well -Offloading No -Debridement - Muscle / Fascia, 1st Yes 20sq cm Pain Scale: 0-10 Numeric Is Patient Pain Free? Yes WC - Nurse 3 - General Ulcer D/C NN Start: 05/10/24 15:26 Freq: Status: Active Protocol: Activity Type Activity Date Activity User E-sign Co-sign Detail Recorded Client Recorded Date Recorded By Document 05/10/24 17:01 MARGUERITE [id number] 05/10/24 17:02 MARGUERITE 05/10/24 17:01 Wound Care Center Nurse 3 1-Sacrum -Ulcer Cleansing Soap and Water -Foul Odor after Cleansing No -Negative Pressure Wound Therapy Continue -Setting (mmHg) 125 -Negative Pressure is Continuous -NPWT Application Charge NPWT & Debridement (nc ) Mickie-Wound Care Barrier Treatment Response Procedure Tolerated Well Pain Scale: 0-10 Numeric Is Patient Pain Free? Yes WC - Visit Discharge Discharge Condition Stable Ambulatory Status Ambulatory Transportation Private Auto Assessment/Plan Assessment/Plan (1) Pressure ulcer of sacral region, stage 4: CODE(S): L89.154 - Pressure ulcer of sacral region, stage 4 PLAN: Doing well post-op Expected course Drain removed without any issues. Continue pressure offloading, no sitting. No laying on the wound. Continue pressure offloading bed. Sutures out next week in clinic. Xeroform and ABD to the incision daily for now. F/u in 1 week
[2024-05-24 15:05] VITALS: BP 154/81; PULSE 109; RESP 16; TEMP 37.2
--- NOTE | 2024-05-25 09:33 | WC ---
PHOTO 05/24/24 [facility]
[2024-05-31 14:29] VITALS: BP 127/63; PULSE 70; RESP 16; TEMP 36.4
== END 2024-05-31 23:59 | disposition home or self-care (01) ==
LOC: WC 14:30
PROVIDERS: Referring Provider Surgery; Visit Provider Surgery Plastic and Reconstructive Surgery
DX: L89.154 Pressure ulcer of sacral region, stage 4 (principal); I10 Essential (primary) hypertension; Z86.16 Personal history of COVID-19; Z79.899 Other long term (current) drug therapy; C44.519 Basal cell carcinoma of skin of other part of trunk
CPT/HCPCS: 11043; 99213; G0463

== ENCOUNTER 2024-06-14 14:25 | Outpatient (RCR) | payer MEDICARE, BC, SELFPAY ==
[2024-06-01 00:42] VITALS: BP 127/67; PULSE 69; RESP 20; TEMP 36.4
[2024-06-14 14:43] VITALS: RESP 16
--- NOTE | 2024-06-14 17:52 | PCM.PN.SRG ---
Subjective Subjective Doing well. Compliant with pressure offloading. Objective Data Objective Data Vital Signs: Vital Signs Temp Pulse Resp BP O2 Del Method 97.6 F L 69 16 127/67 H Room Air 06/01/24 00:42 06/01/24 00:42 06/14/24 14:43 06/01/24 00:42 06/14/24 14:43 Oxygen Delivery Method Room Air Physical Exam Narrative Lower back: Incision is intact without any dehiscence. No induration or redness. No signs of drainage. Flap is warm and well perfused/viable (no tissue necrosis at this time). No dehiscence Const alert and oriented x3 Assessment & Plan Assessment/Plan (1) Wound of sacral region: PLAN: Plan Doing well. OK to put some pressure on flap (laying on it for 30 min at a time, up to 3 times per day). OK to sit, just not on the flap. F/u in 2 weeks in regular plastic surgery clinic Charges/Coding Procedures Integumentary 111xxx-113xx: 83255 Global Visit
--- NOTE | 2024-06-15 09:01 | WC ---
PHOTO 06/14/21 [facility] POST OP
== END 2024-06-14 15:00 | disposition home or self-care (01) ==
LOC: WC 14:25
PROVIDERS: Referring Provider Surgery; Visit Provider Surgery Plastic and Reconstructive Surgery
DX: S30.91XA Unspecified superficial injury of lower back and pelvis, initial encounter (principal)
CPT/HCPCS: 99213; G0463